=== PATIENT | female | born 1945 | race Caucasian/White ===

== ENCOUNTER 2018-01-24 15:53 | Emergency (ER) | payer OTHER ==
[~2018-01-24] VITALS: Ht 157.5 cm; Wt 67.8 kg
[2018-01-24 16:02] VITALS: TEMP 37; Ht 157.5 cm; Wt 67.8 kg
[2018-01-24] MEDS ORDERED: LIDOCAINE/EPINEPH/TETRACAINE 1 EA SYR ONE (16:28)
--- NOTE | 2018-01-24 17:08 | DIAGNOSTIC IMAGING REPORT ---
CT SCAN OF THE CERVICAL SPINE CLINICAL HISTORY: Fall. COMPARISON STUDY: No priors. TECHNIQUE: CT scan of the cervical spine is performed from the skull base to the upper thoracic spine. Images are reviewed in the axial, sagittal, and coronal planes. IV contrast was not administered for this examination. A dose lowering technique was utilized adhering to the principles of ALARA. FINDINGS: Skeletal structures: The skeletal structures are osteopenic. There is no evidence of fracture or subluxation involving the cervical spine. Vertebral body height and alignment are maintained. Small anterior osteophytes are seen throughout. The odontoid process and lateral masses are intact. The atlantoaxial articulation is preserved noting productive degenerative change. The spinous processes appear intact. There is mild to moderate multilevel cervical spondylosis. Uncovertebral and facet arthropathy contribute to neural foraminal narrowing at several levels. Intervertebral discs: Mild to moderate disc space narrowing is seen at C5-C6. Only minimal disc space narrowing is seen at the remaining cervical levels. Central canal: A posterior disc osteophyte complex at C5-C6 may contribute to mild acquired compromise of the central canal. Soft tissues: The prevertebral and paraspinous soft tissues are within normal limits. A calcified sialolith is noted in the left parotid gland. A 2.2 cm low-attenuation nodule is noted in the right lobe of the thyroid gland. Calvarium: The visualized calvarium at the skull base appears intact. Brain parenchyma: Partially visualized brain parenchyma the skull base is within normal limits. Sinuses and mastoids: The visualized paranasal sinuses are clear. The mastoid air cells are well pneumatized. Lung apices: Emphysematous change is noted at the lung apices. IMPRESSION: 1. There is no evidence of fracture or subluxation involving the cervical spine. 2. Osteopenia and spondylotic change as above. 3. Emphysema. 4. There is a 2.2 cm nodule in the right thyroid lobe. Follow-up with a nonemergent thyroid ultrasound is recommended. Electronically signed by: Joseph Davies M.D. 01/24/2018 5:06 PM Dictated Date/Time: 01/24/2018 5:02 PM
[2018-01-24] MEDS ORDERED: UMEC1INH PO (17:16)
[2018-01-24] MEDS ORDERED: FLUT1INH7 PO (17:16)
--- NOTE | 2018-01-24 17:20 | DIAGNOSTIC IMAGING REPORT ---
CT SCAN OF THE BRAIN WITHOUT IV CONTRAST CLINICAL HISTORY: Fall. COMPARISON STUDY: No priors. TECHNIQUE: Unenhanced axial CT scan of the brain is performed from the vertex to the skull base. A dose lowering technique was utilized adhering to the principles of ALARA. CT DOSE: 830.44 mGy.cm FINDINGS: Brain parenchyma: There is an approximately 3 x 2 x 2 cm calcification containing mass lesion identified in the supraventricular left parietal lobe. There is mild surrounding edema with no significant mass effect. There is a questionable extension towards/involvement of the superior aspect of the left lateral ventricle. There is minimal subcortical and periventricular microangiopathic change. There is no hemorrhage or evidence of acute territorial ischemia by CT criteria. No extra-axial fluid collection is seen. Ventricles, sulci, cisterns: Prominent secondary to involutional change. Intracranial vasculature: There is atherosclerotic calcification of the cavernous carotid and vertebral arteries. Calvarium: The skeletal structures are osteopenic. No depressed calvarial fracture is seen. Soft tissues: There is a left frontal scalp contusion/laceration. Sinuses and mastoids: The visualized paranasal sinuses are clear. The mastoid air cells are well pneumatized. Orbits: The bony orbits are grossly intact. Bilateral ocular lens implants are noted. IMPRESSION: 1. There is no hemorrhage, midline shift, or evidence of acute territorial ischemia by CT criteria. 2. There is a densely calcified 3 cm mass lesion centered in the supraventricular left parietal lobe. There is mild surrounding edema with no significant mass effect. This appears to be intra-axial in location, and top differential considerations include an oligodendroglioma or possibly an ependymal tumor. Vascular malformations can also calcify; however, this is considered less likely. MRI of the brain with contrast is recommended, as is neurosurgical follow-up. Electronically signed by: Joseph Davies M.D. 01/24/2018 5:19 PM Dictated Date/Time: 01/24/2018 5:00 PM
[2018-01-24] MEDS ORDERED: ACETAMINOPHEN 500 MG TAB ONE (17:57)
[2018-01-24 18:45] LABS: CALCIUM 9.5 mg/dl (8.5-10.1); CREATININE 0.8 mg/dl (0.60-1.20); POTASSIUM 3.9 mmol/L (3.5-5.1)
--- NOTE | 2018-01-24 19:44 | EMERGENCY ROOM VISIT NOTE ---
History First contact with patient: 16:16 Chief Complaint: HEAD INJURY (MINOR) Stated Complaint: HEAD INJURY History of Present Illness The patient is a 72 year old female who presents to the Emergency Room with complaints of a head injury. The patient also notes the following associated symptoms, 4/10 headache, left scalp laceration that has some mild bleeding and left neck pain. This started 1.5 hrs ago while trying to unload a boat from its trailer. She was accidently knocked to the ground. The patient has found no relieving factors. No other injury. Pt denies LOC, visual changes, chest pain , breathing difficulties, nausea, vomiting, abdominal pain, back pain, extremity pain, numbness, weakness, or other complaints. Review of Systems See HPI for pertinent positives and negatives. A total of ten systems were reviewed and were otherwise negative. Past Medical/Surgical History Medical Problems: (1) AA (alcohol abuse) (2) COPD (chronic obstructive pulmonary disease) Social History Smoking Status: Former Smoker Current/Historical Medications Scheduled Fluticasone Furoate-Vilanterol (Breo Ellipta 200-25 Mcg/INH), 1 PUFF PO DAILY Umeclidinium [place] (Incruse Ellipta), 1 PUFF PO DAILY Physical Exam Vital Signs Date Time Temp Pulse Resp B/P (MAP) Pulse Ox O2 Delivery O2 Flow Rate FiO2 01/24/18 20:41 79 18 162/77 96 Room Air 01/24/18 19:14 76 18 156/81 95 Room Air 01/24/18 18:11 84 18 178/98 94 01/24/18 17:14 82 20 160/96 96 Room Air 01/24/18 16:02 37.0 88 20 186/79 96 Room Air Physical Exam GENERAL: Awake, alert, well appearing, no distress HEAD: Normocephalic, 2cm left scalp laceration No dejesus sign. No raccoon eyes. EYES: Normal conjunctiva. PERRL. EARS: External ears normal. Right TM normal. Left TM normal. NOSE: Atraumatic OROPHARYNX: Lips, tongue, and mucosa unremarkable. No erythema or exudate. NECK: No tracheal deviation or JVD. No posterior midline tenderness. No step offs noted. RESPIRATORY: CTA bilaterally. Breath sounds equal. No wheezes. No rhonchi. Normal respiratory effort. CARDIAC: regular rate, normal rhythm. No murmurs. No rubs. ABDOMEN: Inspection reveals no abnormalities. Soft, non distended. No tenderness to palpation. No hernias. BACK: No midline step offs or tenderness to palpation. Unremarkable. PELVIS: Stable to rock. SKIN: Normal. LYMPH: No adenopathy. MUSCULOSKELETAL: Upper and lower extremities are atraumatic. NEURO: GCS 15. Normal sensorium. No sensory or motor deficits noted. Medical Decision & Procedures ER Provider Diagnostic Interpretation: CT SCAN OF THE BRAIN WITHOUT IV CONTRAST CLINICAL HISTORY: Fall. COMPARISON STUDY: No priors. TECHNIQUE: Unenhanced axial CT scan of the brain is performed from the vertex to the skull base. A dose lowering technique was utilized adhering to the principles of ALARA. CT DOSE: 830.44 mGy.cm FINDINGS: Brain parenchyma: There is an approximately 3 x 2 x 2 cm calcification containing mass lesion identified in the supraventricular left parietal lobe. There is mild surrounding edema with no significant mass effect. There is a questionable extension towards/involvement of the superior aspect of the left lateral ventricle. There is minimal subcortical and periventricular microangiopathic change. There is no hemorrhage or evidence of acute territorial ischemia by CT criteria. No extra-axial fluid collection is seen. Ventricles, sulci, cisterns: Prominent secondary to involutional change. Intracranial vasculature: There is atherosclerotic calcification of the cavernous carotid and vertebral arteries. Calvarium: The skeletal structures are osteopenic. No depressed calvarial fracture is seen. Soft tissues: There is a left frontal scalp contusion/laceration. Sinuses and mastoids: The visualized paranasal sinuses are clear. The mastoid air cells are well pneumatized. Orbits: The bony orbits are grossly intact. Bilateral ocular lens implants are noted. IMPRESSION: 1. There is no hemorrhage, midline shift, or evidence of acute territorial ischemia by CT criteria. 2. There is a densely calcified 3 cm mass lesion centered in the supraventricular left parietal lobe. There is mild surrounding edema with no significant mass effect. This appears to be intra-axial in location, and top differential considerations include an oligodendroglioma or possibly an ependymal tumor. Vascular malformations can also calcify; however, this is considered less likely. MRI of the brain with contrast is recommended, as is neurosurgical follow-up. Electronically signed by: Joseph Davies M.D. 01/24/2018 5:19 PM Dictated Date/Time: 01/24/2018 5:[address] SCAN OF THE CERVICAL SPINE CLINICAL HISTORY: Fall. COMPARISON STUDY: No priors. TECHNIQUE: CT scan of the cervical spine is performed from the skull base to the upper thoracic spine. Images are reviewed in the axial, sagittal, and coronal planes. IV contrast was not administered for this examination. A dose lowering technique was utilized adhering to the principles of ALARA. FINDINGS: Skeletal structures: The skeletal structures are osteopenic. There is no evidence of fracture or subluxation involving the cervical spine. Vertebral body height and alignment are maintained. Small anterior osteophytes are seen throughout. The odontoid process and lateral masses are intact. The atlantoaxial articulation is preserved noting productive degenerative change. The spinous processes appear intact. There is mild to moderate multilevel cervical spondylosis. Uncovertebral and facet arthropathy contribute to neural foraminal narrowing at several levels. Intervertebral discs: Mild to moderate disc space narrowing is seen at C5-C6. Only minimal disc space narrowing is seen at the remaining cervical levels. Central canal: A posterior disc osteophyte complex at C5-C6 may contribute to mild acquired compromise of the central canal. Soft tissues: The prevertebral and paraspinous soft tissues are within normal limits. A calcified sialolith is noted in the left parotid gland. A 2.2 cm low-attenuation nodule is noted in the right lobe of the thyroid gland. Calvarium: The visualized calvarium at the skull base appears intact. Brain parenchyma: Partially visualized brain parenchyma the skull base is within normal limits. Sinuses and mastoids: The visualized paranasal sinuses are clear. The mastoid air cells are well pneumatized. Lung apices: Emphysematous change is noted at the lung apices. IMPRESSION: 1. There is no evidence of fracture or subluxation involving the cervical spine. 2. Osteopenia and spondylotic change as above. 3. Emphysema. 4. There is a 2.2 cm nodule in the right thyroid lobe. Follow-up with a nonemergent thyroid ultrasound is recommended. Electronically signed by: Joseph Davies M.D. 01/24/2018 5:06 PM Dictated Date/Time: 01/24/2018 5:02 PM Laboratory Results 01/24/18 18:25 Test 01/24/18 18:25 Anion Gap 11.0 mmol/L (3-11) Est Creatinine Clear Calc Drug Dose 58.2 ml/min Estimated GFR () 86.0 Estimated GFR (Non- 74.2 BUN/Creatinine Ratio 28.3 (10-20) Calcium Level 9.5 mg/dl (8.5-10.1) Medications Administered Medications (Trade) Dose Ordered Sig/Shawna Route Start Time Stop Time Status Last Admin Dose Admin Tetracaine/ Epinephrine/ Lidocaine (L.e.t. Gel 4%/ 1:100/0.5%) 1 ea STK-MED ONCE .ROUTE 01/24/18 16:28 01/24/18 16:29 DC 01/24/18 16:35 1 EA Acetaminophen (Tylenol Tab) 1,000 mg STK-MED ONCE .ROUTE 01/24/18 17:57 01/24/18 17:58 DC 01/24/18 18:10 1,000 MG Procedure LACERATION REPAIR: Location: Left scalp Total length: 2 cm Complexity: simple Verbal consent was obtained after the risks and benefits were explained, including but not limited to bleeding, scarring, infection, pain, and bone/joint /nerve damage. At this time, the risks of the procedure are less than the risks of NOT performing the procedure. A time out was taken and the correct patient and site identified. The wound was anesthetized with ml of 1% lidocaine without epinephrine. Copious irrigation was performed using saline. The skin was prepped with betadine and a sterile field set. The wound was explored for foreign bodies and none found. Debridement was not performed. The wound edges were approximated using 3, 5-0 simple interrupted nylon sutures. Hemostasis and excellent approximation was achieved. Antibacterial ointment and a sterile dressing applied. Detailed wound care instructions and signs and symptoms of infection reviewed with the patient/family. No complications and the patient tolerated the procedure well. Medical Decision Triage Nursing notes reviewed. The patient's presentation and history were concerning for CHI Etiologies such as fracture, soft tissue injury, ICH, SAH, as well as others were entertained. The patient had an accidental fall and suffered a left scalp injury. she underwent CT imaging with the findings noted above. She had her laceration repaired. She underwent MR imaging to further evaluate the intracranial mass. 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 A consult was placed with Dr. Thayer of [facility] neurosurgery. He recommended close outpatient follow-up in his clinic. He will contact the patient tomorrow for a follow-up. The patient will follow up with her primary physician next week to further evaluate the thyroid nodule. She was offered to come back here for suture removal but thinks she will follow-up with her primary office for suture removal. She was provided with a copy of her imaging. She was educated. I gave my usual and customary discussion regarding this issue. By the evaluation outlined above other emergent etiologies such as those listed in the differential, as well as others, were deemed relatively unlikely. The patient was educated about the findings as listed above. All questions were answered and the patient was pleased with the treatment. Return instructions were outlined and the patient was discharged in stable condition. The patient was referred to her PCP and neurosurgery for follow-up for a recheck of the current condition. Impression Primary Impression: Closed head injury Additional Impressions: Laceration Thyroid nodule Intracranial AVM Departure Information Dispostion Home / Self-Care Referrals No Doctor, Assigned (PCP) Patient Instructions My [facility] Additional Instructions Bacitracin to wounds once daily. Use a non-stick dressing such as a large band-aid. Change the dressings once a day. Tylenol: Take 1000 mg every 6 hours as needed for pain. Do not take more than 3000 mg in a 24 hour period. Allow your wounds to air dry several hours per day when you are resting, but it is a good idea to keep them covered while sleeping to prevent irritation and the sheets sticking to the wound. Apply direct pressure for any bleeding. Return to the ER immediately for spreading redness, fevers, pus-like drainage, severe pain, or as needed. Return to the ER or follow up with her primary physician in 7 days for suture removal. Follow-up with [facility] neurosurgery. You should be getting a phone call from them tomorrow regarding the arteriovenous malformation found on your brain imaging. Follow-up next week with your primary physician regarding the thyroid nodule and need for additional imaging. Problem Qualifiers
--- NOTE | 2018-01-24 20:49 | DIAGNOSTIC IMAGING REPORT ---
BRAIN COMBO CLINICAL HISTORY: 72 years-old Female presenting with eval brain mass on CT scan from today. TECHNIQUE: Multisequence, multiplanar MR imaging of the brain was performed before and after the administration of intravenous contrast. IV contrast: 6.5 mL of Gadavist. COMPARISON: Noncontrast CT head from earlier today. FINDINGS: Localizer images: Unremarkable. Ventricles and sulci normal in size. In the paramedian left parietal lobe is an arterial venous malformation. Minimal if any interposed normal brain parenchyma. Internal calcification is best appreciated on CT. The arterial supply may be pial in origin. Primary venous drainage appears to be via the left internal cerebral vein consistent with deep venous drainage. The nidus measures approximately 2.2 cm in diameter. Surrounding T2/FLAIR hyperintensity of the brain parenchyma consistent with vasogenic edema. There is no additional lesion. No evidence of hemorrhage. Mild regional mass effect on sulci. No effacement of the adjacent left lateral ventricle. No midline shift. No restricted diffusion to suggest acute ischemia. No extra-axial fluid collection. T2 skull base flow voids preserved. Bone marrow signal intensity within the calvarium within normal limits. Bilateral [place] lenses are absent. IMPRESSION: 1. 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 No additional lesion. Mild surrounding vasogenic edema. Electronically signed by: Moncho Dunbar M.D. 01/24/2018 8:48 PM Dictated Date/Time: 01/24/2018 8:40 PM
[2018-01-24 21:35] VITALS: BP 141/74; PULSE 71; O2SAT 97
== END 2018-01-24 21:37 | disposition home or self-care (01) ==
LOC: C.EDB 15:54 → C.EDC 21:37
DX: S09.90XA Unspecified injury of head, initial encounter (principal); S01.01XA Laceration without foreign body of scalp, initial encounter; W18.30XA Fall on same level, unspecified, initial encounter; E04.1 Nontoxic single thyroid nodule; Q28.2 Arteriovenous malformation of cerebral vessels; J44.9 Chronic obstructive pulmonary disease, unspecified; Z87.891 Personal history of nicotine dependence; Z79.51 Long term (current) use of inhaled steroids

== ENCOUNTER 2018-07-30 16:00 | Inpatient (IN) ==
[2018-07-30 18:15] LABS: Basophils # (auto) 0.02 K/uL (0-0.2); Basophils % (auto) 0.4 %; Eosinophils # (auto) 0.06 K/uL (0-0.5); Eosinophils % (auto) 1.1 %; Hematocrit (blood only) 33.4 % (37-47); Hemoglobin 10.4 g/dL (12.0-16.0); Immature Granulocytes # (auto) 0.26 K/uL (0.00-0.02); Immature Granulocytes % (auto) 4.9 %; Lymphocytes # (auto) 1.59 K/uL (1.2-3.4); Lymphocytes % (auto) 30.2 %; Mean Corpuscular Hgb Conc 31.1 g/dL (32-36); Mean Corpuscular Volume 101.8 fL (80-100); Mean Platelet Volume 7.7 fL (7.4-10.4); Monocytes # (auto) 0.49 K/uL (0.11-0.59); Monocytes % (auto) 9.3 %; Neutrophils # (auto) 2.84 K/uL (1.4-6.5); Neutrophils % (auto) 54.1 %; Nucleated RBC # (auto) 0.15 K/uL (0-0); Nucleated RBC % (auto) 2.9 %; Platelet Count 124 K/uL (130-400); RDW Coefficient of Variation 22.8 % (11.5-14.5); RDW Standard Deviation 82.8 fL (36.4-46.3); Red Blood Count 3.28 M/uL (4.2-5.4); White Blood Count 5.26 K/uL (4.8-10.8)
[2018-07-30] MEDS ORDERED: FUROSEMIDE 40 MG/4 ML VIAL IV STA ×2 (18:29→21:58)
[2018-07-30 18:31] LABS: INR 2.7 (0.9-1.1); Partial Thromboplastin Ratio 1.5; Partial Thromboplastin Time 40.2 Seconds (21.0-31.0); Prothrombin Time 25.5 Seconds (9.0-12.0)
[2018-07-30 18:33] LABS: Alanine Aminotransferase 23 U/L (12-78); Albumin Level 2.1 gm/dl (3.4-5.0); Aspartate Aminotransferase 33 U/L (15-37); Blood Urea Nitrogen 34 mg/dl (7-18); Calcium 8.2 mg/dl (8.5-10.1); Carbon Dioxide 27 mmol/L (21-32); Chloride 109 mmol/L (98-107); Est GFR (African American) 84.1; Est GFR (Non-African American) 72.6; Glucose 108 mg/dl (70-99); Potassium 3.6 mmol/L (3.5-5.1); Sodium 143 mmol/L (136-145)
[2018-07-30 18:35] LABS: Anisocytosis Present; Polychromasia 1+
[2018-07-30 18:38] LABS: Albumin Globulin Ratio 0.6 (0.9-2); Alkaline Phosphatase 62 U/L (45-117); Bilirubin,Total 0.4 mg/dl (0.2-1); Globulin 3.5 gm/dl (2.5-4.0); Total Protein 5.6 gm/dl (6.4-8.2); Troponin I 0.022 ng/ml (0-0.045)
--- NOTE | 2018-07-30 19:28 | XRay Report ---
SINGLE VIEW CHEST CLINICAL HISTORY: Fluid overload. FINDINGS: An AP, portable, upright chest radiograph is compared to study dated 07/08/2018. Correlation is made with chest CT dated 09/01/2015. The examination is degraded by portable technique and patient rotation. The heart is mildly enlarged and there is atherosclerotic calcification of the thoracic ao rta. The pulmonary vasculature is noncongested. Emphysema and chronic interstitial thickening are sim ilar to previous. No airspace consolidation or large pleural effusion is identified. Bibasilar atelec tasis is noted. No pneumothorax is seen. The skeletal structures are osteopenic. The bony thorax is g rossly intact. IMPRESSION: Mild cardiac enlargement and emphysema. No acute cardiopulmonary abnormality is seen. Electronically signed by: Joseph Davies M.D. 07/30/2018 7:26 PM
[2018-07-30] MEDS ORDERED: DIVALPROEX EXTENDED RELEASE 500 MG TAB PO STA (20:42)
[2018-07-30] MEDS ORDERED: IPRATROPIUM BROMIDE NEB SOLN 0.02% 2.5 ML VIAL INH PRN (21:58)
[2018-07-30] MEDS ORDERED: ONDANSETRON INJ 2 MG/ML 2 ML VIAL IV PRN (21:58)
[2018-07-30] MEDS ORDERED: NITROGLYCERIN SL 0.4 MG/TAB TAB SL PRN (21:58)
[2018-07-30] MEDS ORDERED: LEVALBUTEROL 1.25MG/0.5ML NEB INH PRN (21:58)
[2018-07-30] MEDS ORDERED: XOPENEX/ATROVENT 1.25mg/0.5MG NEB COMBO NEB PRN (21:58)
[2018-07-30] MEDS ORDERED: POLYETHYLENE (MIRALAX) 17 GM PACK PO PRN (21:58)
[2018-07-30] MEDS: DIVALPROEX EXTENDED RELEASE 500 MG TAB PO SCH (23:11)
--- NOTE | 2018-07-30 23:16 | History and Physical Report ---
DATE OF ADMISSION: 07/30/2018 CHIEF COMPLAINT: Weight gain and increase in lower extremity swelling. HISTORY OF PRESENT ILLNESS: This is a 73-year-old female with past medical history significant for stress-induced cardiomyopathy,DVT, seizure disorder, COPD, AVM malformations of the brain, hematoma of groin, simple partial seizures, history of status epilepticus, vasogenic brain edema, iron deficiency anemia, acute blood loss anemia secondary to hematoma of the groin presents with lower extremity edema and swelling ,from [facility] transferred here by cardiology. The patient has history of fall in January 2018. At that time, CT of the head demonstrated incidental finding of AV malformation and she was referred to [facility] where she received radiation and developed brain edema and seizure disorder. At that time, she was also found to have severe ventricular ejection fraction of 30% and she had a cardiac catheterization that showed normal coronaries. It was felt to be stress-induced cardiomyopathy and later a repeat echo done in May 2018 demonstrated interval improvement of the LV to function 60%. She was on steroids Decadron for seizures. In the first week of June, she came with seizures. At that time, again received IV Decadron and Depakote dose was increased to 750 mg b.i.d. She did okay and she was discharged home and presented back to the ER on 07/08/2018 with status epilepticus. She was given another dose of IV Decadron and she was intubated and she was having sonorous respirations/somnolonce and also she was placed on femoral line and started on pressors as hse was hypotensive after propofol . Then she was transferred to [facility]. In [facility], Depakote level was subtherapeutic and she was loaded and then continued her maintenance dose . She was in ICU and at that time a repeat echo showed again EF of 25%. Eventually she did fine and she was extubated. She was restarted back on 750 mg of b.i.d. Depakote, but family requested 1 gram b.i.d. and though neurology explained of side effect, they were adamant and it was increased to 1000 mg b.i.d. . Patient also was found to have large thigh hematoma following removal of right femoral line and hemoglobin dropped to 6 points and required 1 unit of PRBCs. Discharge hemoglobin was 9.4. CAT scan showed no AV fistula or pseudoaneurysm and she was discharged to [facility]. She says that during discharge also she was developing lower extremity edema. Seems at [facility] on July 25 she was started on Lasix 20 mg daily, but it was not helping and she developed progressive worsening of lower extremity edema and since May, she gained about 20 pounds. Also has swelling in her hands and abdomen and having shortness of breath on exertion, some intermittent dizziness.Patient states she requires assistance for getting up and she ambulates with a walker currently. Denies any headache, no blurred visions, no earache. No runny nose, no sore throat. ,Patient says diet restrictions were not addressed so far and she is on regular diet.No difficulty swallowing. Sleeping okay. She does not sleep flat. She always sleeps with a raised head because of her COPD. Denies any chest pain, no cough, no fever, no nausea, no abdominal pain. Normal bowel and bladder movements. No burning micturition, no hematuria, no bloody or black stools, no skin rash. She easily bruises because she is on Coumadin. She has history of DVT. ALLERGIES: SULFA ANTIBIOTICS, ALCOHOL, OPIATES. PAST MEDICAL HISTORY: As mentioned above. PAST SURGICAL HISTORY: Lower arm reconstruction in 80s, internal carotid artery cath placement, cataract surgery, , coronary angiogram, ovarian cyst removed in her 20s, appendectomy, vertebral artery catheter placement. MEDICATIONS: The patient currently takes Tylenol 325 mg p.o. q. 6 hours p.r.n., Lasix 20 mg p.o. daily, Toprol-XL 25 mg p.o. daily, valproic acid 1000 mg p.o. b.i.d., Coumadin 5 mg p.o. daily or as directed, Breo Ellipta 200/25 mcg inhalation daily, aspirin enteric coated 81 mg p.o. daily, Incruse Ellipta 1 inhalation daily. FAMILY HISTORY: Significant for sister has lung cancer and depression. Mother has heart disorder, CVA, dementia, depression. SOCIAL HISTORY: , currently at [facility]. Quit smoking in 2010, smoked 1 pack a day for 46 years. The patient has previous history of alcohol abuse. She is not drinking for 22 years. No drug use. REVIEW OF SYMPTOMS: As per HPI. Rest of the review of symptoms negative. PHYSICAL EXAMINATION: GENERAL: The patient is of moderate built, not in acute distress. VITAL SIGNS: Temperature 36.4, pulse 88, respiratory 17, blood pressure 114/69, oxygen 97% on 2 liters. HEENT: No pallor, no icterus. Pupils equal, round, and reactive to light. NECK: No JVD, no neck masses, no carotid bruit. CARDIOVASCULAR: S1, S2 heard, regular rate and rhythm, no murmur, no gallop. RESPIRATORY SYSTEM: Normal AP diameter. No accessory muscle use. No wheezing, no crackles. ABDOMEN: Soft, bowel sounds present. Nontender. No distention. CENTRAL NERVOUS SYSTEM: Cranial nerves II-XII grossly intact. Nonfocal. EXTREMITIES: Gross bilateral lower extremity pedal edema present, no erythema seen. LABORATORY DATA: WBC 5.2, hemoglobin 10.4, hematocrit 33.4, platelets 124. PT 25.5, INR 2.7, APTT 40.2. Sodium 143, potassium 3.6, chloride 109, bicarbonate 27, BUN 34, creatinine 0.8, serum glucose 108, calcium 8.2, total bilirubin 0.4, AST 33, ALT 23, alkaline phosphatase 62. Troponin I 0.022. BNP 1659. IMAGING DATA: Chest x-ray, mild cardiac enlargement and emphysema, no acute cardiopulmonary abnormality is seen. EKG: Normal sinus rhythm with rate of 93, nonspecific ST-T abnormality seen. ASSESSMENT AND PLAN: This is a 73-year-old female who presents with shortness of breath on exertion and worsening lower extremity edema. 1. [id number] systolic congestive heart failure. The patient has history of stress-induced cardiomyopathy first diagnosed in January, then repeat echo in May was EF improved to 60%. Again she was admitted to [facility] with status epilepticus in July 2018 and at that time, echo showed 25% EF. The patient was started on 20 of Lasix, was not helping her. She was getting worsening lower extremity edema and gained 20 pounds since May. Received IV Lasix 40 in ER. We will give 1 more Lasix IV [address] on IV 40 b.i.d. from a.m. Daily weights, I's and O's. The patient refusing Cox. Cardiology consult for further recommendation. Repeat echo as per cardiology. Closely monitor in the tele floor. If the patient's blood pressure drops with the Lasix,dobutamine or milrinone as per cardiology. Closely monitor in the tele floor for now. 2. History of arteriovenous malformation of brain, incidental diagnosis in january 2018, status post radiation treatment at [facility]. Post-radiation treatment, developed seizures mostly from vasogenic edema and treated with steroids. No longer on steroids currently. Follow up with neurosurgery. 3. Seizures developed post radiation for AVM, thought to be from vasogenic edema. Initially treated with Keppra, but later changed to Depakote. Also treated with steroids, currently no longer on steroids. Depakote level was increased to 1000 BID recently when patient was in status epilepticus in July first week and transferred to [facility] and need for intubation at that time. Currently, on Depakote 1000 mg b.i.d. No seizures since discharge from [facility]. Continue the same dose and closely monitor. 4. History of chronic obstructive pulmonary disease, history of tobacco abuse in the past. Continue her home inhalers. Placed her on Xopenex and ipratropium nebs p.r.n. 5. History of hematoma of groin from femoral catheterization. No pseudoaneurysm on the CAT scan done at [facility]. 6. Anemia post hematoma of groin, seems to be stable, we will monitor. 7. Thrombocytopenia, will follow the repeat labs. If persistent, may need followup. 8. History of deep vein thrombosis on Coumadin. INR therapeutic. Follow PT/INR. Code status level 1 full code. 9. DVT px on Coumadin. follow inr. DISPOSITION: Closely monitor in tele floor. PT and OT prior to discharge. Social service to help with discharge planning. The patient is coming from [facility], may need to go back to [facility] at time of discharge. [facility]
[2018-07-30] MEDS: METOPROLOL SUCC 25MG EXT REL TAB PO SCH (23:21)
--- NOTE | 2018-07-31 00:22 | Emergency Department Note ---
Entered by Brad Rivera acting as a scribe for History of Present Illness General Chief complaint: Swelling/Edema to Extremity Stated complaint: EDEMA IN LEGS, ARMS, FLUID IN LUNGS, LOW BP Time Seen by Provider: 07/30/18 18:14 History of Present Illness Provider complaint: swelling/edema to extremities Onset (ago): day(s) (July 08, 2018) Location: upper extremity, lower extremity, left and right Pain Consistency: + other (worsening) Maximum Pain Intensity: 2 Quality: + other (edema) Associated symptoms: + shortness of breath (exertional) and + other (weight gain of about 10-12 pounds); no chest pain, no cough and no fever/chills Treatments prior to arrival: other (Lasix) The patient is a 73 year old white female w/ PMHx of 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 The patient reports that was seen by a LAYNE in Dr. Caceres's, Cardiology, office today who was concerned that the patient was retaining fluids. The patient says since coming to the hospital on July 08, she has gained about 10 to 12 pounds in her extremities. The patient states that since then she has also developed exertional shortness of breath. She reports that laying flat exacerbates her shortness of breath. The patient's says upon arrival to the hospital on July 08, EMS dropped the patient and states that the patient has a significant bruise on her lower right leg. The patient denies any chest pain, cough, fevers, or chills. She admits to recently starting a small dose of Lasix , but is unsure if she took it today as she is a resident of [facility]. Per the patient's notes from her appointment today, the patient is up 20 pounds in three weeks and is up 13 pounds in 5 days. The patient's noted also reveal a negative cardiac catheterization from January 2018. Home Medications Home Medications Medication Instructions Recorded Confirmed Type aspirin [Aspir-81] 81 mg PO DAILY 04/11/18 07/30/18 History fluticasone-vilanterol [Breo 1 inh INHALATION DAILY 04/11/18 07/30/18 History Ellipta] umeclidinium [Incruse Ellipta] 1 inh INHALATION DAILY 04/11/18 07/30/18 History metoprolol succinate 25 mg PO HS 06/09/18 07/30/18 History acetaminophen 325 mg PO Q6H PRN 07/30/18 07/30/18 History divalproex 1,000 mg PO Q12H 07/30/18 07/30/18 History furosemide [Lasix] 20 mg PO DAILY 07/30/18 07/30/18 History warfarin [Coumadin] 5 mg PO DAILY 07/30/18 07/30/18 History Allergies Allergy/AdvReac Type Severity Reaction Status Date / Time Sulfa (Sulfonamide Allergy Mild rash Verified 07/30/18 19:01 Antibiotics) alcohol Allergy Unknown Recovering Verified 07/30/18 19:01 Alcoholic Opioids - Morphine Analogues AdvReac HISTORY OF Verified 07/30/18 19:01 ADDICTION Past Med/Surg History Medical History Vasogenic edema Dehydration Hyponatremia AA (alcohol abuse) (Resolved) COPD (chronic obstructive pulmonary disease) (Chronic) Seizure (Acute) 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 Social History marital status: Current Living Situation: Group Home Current Living Situation Comment: [facility] Feels Safe at Home: Yes Safety Concerns: Feels Safe At This Time Smoking Status: Former smoker Smoking End Date: 2010 Second Hand Exposure: No Tobacco Cessation Education Requested by Patient: No Hx Alcohol Use: No Hx Substance Use: No Beliefs That Will Affect Care: None Preferred Language: Uzbek Communication Ability: Effective Servicer Required: No Review of Systems See HPI for pertinent positives & negatives. and A total of 10 systems reviewed and were otherwise negative Physical Exam Vital Signs Vital Signs - 24 hr 07/30/18 16:22 07/30/18 18:02 07/30/18 18:25 Temperature 36.4 C L Temperature Source Oral Sepsis Recent Fever Within 48 Hours No Sepsis New/Unexplained Change in Mental Status No Sepsis Action Taken by Nursing No Action Required Pulse Rate 81 87 Pulse Rate [Right Brachial] Pulse Rate from SpO2 Sensor Pulse Rhythm Regular Pulse Strength Normal Respiratory Rate 20 21 Respiratory Effort / Characteristics Non-Labored Spontaneous Respiratory Depth Normal Respiratory Pattern Regular Blood Pressure 92/66 L 141/102 H Blood Pressure [Right Arm] Blood Pressure Mean 74 115 Blood Pressure Mean [Right Arm] Blood Pressure Position Sitting Blood Pressure Position [Right Arm] Pulse Oximetry 97 94 Pulse Oximetry [Right Index Finger] Oxygen Delivery Method Room Air Room Air Oxygen Delivery Method [Right Index Finger] Oxygen Flow Rate 07/30/18 18:30 07/30/18 18:40 07/30/18 18:46 Temperature Temperature Source Sepsis Recent Fever Within 48 Hours Sepsis New/Unexplained Change in Mental Status Sepsis Action Taken by Nursing Pulse Rate 85 83 98 H Pulse Rate [Right Brachial] Pulse Rate from SpO2 Sensor 85 Pulse Rhythm Pulse Strength Respiratory Rate 19 21 16 Respiratory Effort / Characteristics Respiratory Depth Respiratory Pattern Blood Pressure 101/65 Blood Pressure [Right Arm] Blood Pressure Mean 77 Blood Pressure Mean [Right Arm] Blood Pressure Position Blood Pressure Position [Right Arm] Pulse Oximetry 90 87 L Pulse Oximetry [Right Index Finger] Oxygen Delivery Method Room Air Oxygen Delivery Method [Right Index Finger] Oxygen Flow Rate 07/30/18 18:50 07/30/18 18:51 07/30/18 19:00 Temperature Temperature Source Sepsis Recent Fever Within 48 Hours Sepsis New/Unexplained Change in Mental Status Sepsis Action Taken by Nursing Pulse Rate 87 82 Pulse Rate [Right Brachial] Pulse Rate from SpO2 Sensor 86 82 Pulse Rhythm Pulse Strength Respiratory Rate 19 17 Respiratory Effort / Characteristics Respiratory Depth Respiratory Pattern Blood Pressure Blood Pressure [Right Arm] Blood Pressure Mean Blood Pressure Mean [Right Arm] Blood Pressure Position Blood Pressure Position [Right Arm] Pulse Oximetry 90 98 100 Pulse Oximetry [Right Index Finger] Oxygen Delivery Method Nasal Cannula Oxygen Delivery Method [Right Index Finger] Oxygen Flow Rate 2 07/30/18 19:10 07/30/18 19:20 07/30/18 19:30 Temperature Temperature Source Sepsis Recent Fever Within 48 Hours Sepsis New/Unexplained Change in Mental Status Sepsis Action Taken by Nursing Pulse Rate 82 82 93 H Pulse Rate [Right Brachial] Pulse Rate from SpO2 Sensor 82 82 Pulse Rhythm Pulse Strength Respiratory Rate 18 16 21 Respiratory Effort / Characteristics Respiratory Depth Respiratory Pattern Blood Pressure Blood Pressure [Right Arm] Blood Pressure Mean Blood Pressure Mean [Right Arm] Blood Pressure Position Blood Pressure Position [Right Arm] Pulse Oximetry 99 99 Pulse Oximetry [Right Index Finger] Oxygen Delivery Method Oxygen Delivery Method [Right Index Finger] Oxygen Flow Rate 07/30/18 19:40 07/30/18 19:41 07/30/18 19:50 Temperature Temperature Source Sepsis Recent Fever Within 48 Hours Sepsis New/Unexplained Change in Mental Status Sepsis Action Taken by Nursing Pulse Rate 99 H 85 81 Pulse Rate [Right Brachial] Pulse Rate from SpO2 Sensor 87 84 Pulse Rhythm Pulse Strength Respiratory Rate 27 H 25 H 24 Respiratory Effort / Characteristics Respiratory Depth Respiratory Pattern Blood Pressure 122/77 Blood Pressure [Right Arm] Blood Pressure Mean 92 Blood Pressure Mean [Right Arm] Blood Pressure Position Blood Pressure Position [Right Arm] Pulse Oximetry 92 97 Pulse Oximetry [Right Index Finger] Oxygen Delivery Method Nasal Cannula Oxygen Delivery Method [Right Index Finger] Oxygen Flow Rate 2 07/30/18 20:00 07/30/18 20:10 07/30/18 20:20 Temperature Temperature Source Sepsis Recent Fever Within 48 Hours Sepsis New/Unexplained Change in Mental Status Sepsis Action Taken by Nursing Pulse Rate 86 88 85 Pulse Rate [Right Brachial] Pulse Rate from SpO2 Sensor 85 Pulse Rhythm Pulse Strength Respiratory Rate 17 17 19 Respiratory Effort / Characteristics Respiratory Depth Respiratory Pattern Blood Pressure 114/69 Blood Pressure [Right Arm] Blood Pressure Mean 84 Blood Pressure Mean [Right Arm] Blood Pressure Position Blood Pressure Position [Right Arm] Pulse Oximetry 99 Pulse Oximetry [Right Index Finger] Oxygen Delivery Method Oxygen Delivery Method [Right Index Finger] Oxygen Flow Rate 07/30/18 20:30 07/30/18 20:43 07/30/18 20:44 Temperature Temperature Source Sepsis Recent Fever Within 48 Hours Sepsis New/Unexplained Change in Mental Status Sepsis Action Taken by Nursing Pulse Rate 95 H 90 89 Pulse Rate [Right Brachial] Pulse Rate from SpO2 Sensor 89 89 Pulse Rhythm Pulse Strength Respiratory Rate 24 21 21 Respiratory Effort / Characteristics Respiratory Depth Respiratory Pattern Blood Pressure Blood Pressure [Right Arm] Blood Pressure Mean 87 Blood Pressure Mean [Right Arm] Blood Pressure Position Blood Pressure Position [Right Arm] Pulse Oximetry 100 100 Pulse Oximetry [Right Index Finger] Oxygen Delivery Method Oxygen Delivery Method [Right Index Finger] Oxygen Flow Rate 07/30/18 20:50 07/30/18 20:57 07/30/18 21:00 Temperature Temperature Source Sepsis Recent Fever Within 48 Hours Sepsis New/Unexplained Change in Mental Status Sepsis Action Taken by Nursing Pulse Rate 91 H 85 Pulse Rate [Right Brachial] Pulse Rate from SpO2 Sensor 87 91 H 86 Pulse Rhythm Pulse Strength Respiratory Rate 19 24 21 Respiratory Effort / Characteristics Respiratory Depth Respiratory Pattern Blood Pressure 135/88 Blood Pressure [Right Arm] Blood Pressure Mean 103 Blood Pressure Mean [Right Arm] Blood Pressure Position Blood Pressure Position [Right Arm] Pulse Oximetry 100 97 100 Pulse Oximetry [Right Index Finger] Oxygen Delivery Method Nasal Cannula Oxygen Delivery Method [Right Index Finger] Oxygen Flow Rate 2 07/30/18 21:01 07/30/18 21:58 07/30/18 22:05 Temperature 36.9 C 36.9 C Temperature Source Oral Oral Sepsis Recent Fever Within 48 Hours Sepsis New/Unexplained Change in Mental Status Sepsis Action Taken by Nursing Pulse Rate 87 Pulse Rate [Right Brachial] 94 H 94 H Pulse Rate from SpO2 Sensor 89 Pulse Rhythm Pulse Strength Respiratory Rate 20 16 16 Respiratory Effort / Characteristics Non-Labored Spontaneous Respiratory Depth Normal Normal Respiratory Pattern Regular Regular Blood Pressure 138/82 Blood Pressure [Right Arm] 123/81 123/81 Blood Pressure Mean 100 Blood Pressure Mean [Right Arm] 95 95 Blood Pressure Position Blood Pressure Position [Right Arm] Sitting Sitting Pulse Oximetry 95 Pulse Oximetry [Right Index Finger] 95 Oxygen Delivery Method Room Air Oxygen Delivery Method [Right Index Finger] Room Air Oxygen Flow Rate 07/31/18 00:06 Temperature 36.5 C Temperature Source Oral Sepsis Recent Fever Within 48 Hours Sepsis New/Unexplained Change in Mental Status Sepsis Action Taken by Nursing Pulse Rate Pulse Rate [Right Brachial] 88 Pulse Rate from SpO2 Sensor Pulse Rhythm Pulse Strength Respiratory Rate 18 Respiratory Effort / Characteristics Respiratory Depth Respiratory Pattern Blood Pressure Blood Pressure [Right Arm] 109/77 Blood Pressure Mean Blood Pressure Mean [Right Arm] 87 Blood Pressure Position Blood Pressure Position [Right Arm] Pulse Oximetry 100 Pulse Oximetry [Right Index Finger] Oxygen Delivery Method Oxygen Delivery Method [Right Index Finger] Oxygen Flow Rate 2 GENERAL: Well appearing, well nourished, NAD, non-toxic. EYE EXAM: Normal conjunctiva. PERRL, no anisocoria and EOM's grossly intact w/o pain. OROPHARYNX: Moist MM. NECK: Supple, no nuchal rigidity, no adenopathy, non-tender. No signs of meningismus. LUNGS: Decreased breath sounds and bibasilar crackles at bilateral bases. Normal chest wall mechanics. HEART: NSR, no MRG. ABDOMEN: Abdomen soft, non-tender, normo-active bowel sounds, no masses, no rebound or guarding. BACK: No CVA TTP. SKIN: No rashes and no bruising. UPPER EXTREMITIES: Upper extremities are grossly normal. LOWER EXTREMITIES: 4+ pitting edema. No calf pain. Aged bruising to right lower extremity distal to the knee. NEURO EXAM: A and O x3. GCS 15. Moves all 4 extremities on command w/o issue. Course 1818: Past medical records reviewed. The patient was evaluated in room A11B, and a complete history and physical examination were performed. 1912: I reviewed the patient's case with Zafar Guo PA-C. She and her attending, Dr. Cantrell, [facility] Hospitalist, will evaluate the patient for further management. 1925: I spoke with the patient about the intended treatment plan and she was agreeable. Consultations Consultation #1: Zafar Guo PA-C Time: 19:13 Administered Medications Divalproex Sodium (Depakote Extended Release) 1,000 mg PO BID MILY Stop: 08/29/18 21:57 Last Admin: 07/30/18 23:11 Dose: Not Given Metoprolol Succinate (Toprol Xl) 25 mg PO HS MILY Stop: 08/29/18 21:57 Last Admin: 07/30/18 23:21 Dose: 25 mg Discontinued Medications Divalproex Sodium (Depakote Extended Release) 1,000 mg PO NOW STA Stop: 07/30/18 20:43 Last Admin: 07/30/18 20:56 Dose: 1,000 mg Furosemide (Lasix) 40 mg IV NOW STA Stop: 07/30/18 18:30 Last Admin: 07/30/18 18:59 Dose: 40 mg Furosemide (Lasix) 20 mg IV NOW STA Stop: 07/30/18 21:59 Last Admin: 07/30/18 23:21 Dose: 20 mg Medical Decision Making Differential Diagnosis Differential diagnosis: Etiologies such as infections, reactive airway disease, pneumonia, pneumothorax , COPD, CHF, cardiac ischemia, pulmonary embolism, musculoskeletal, gastrointestinal, as well as others were entertained. Medical Records Attestation: I reviewed the patient's medical records. Home Medications Current Medication List: was personally reviewed by me Laboratory Data Attestation: I reviewed the patient's lab results. Result diagrams: 07/30/18 18:00 07/30/18 18:00 Lab Results 07/30/18 07/30/18 07/30/18 Range/Units 18:00 18:00 18:00 WBC 5.26 (4.8-10.8) K/uL RBC 3.28 L (4.2-5.4) M/uL Hgb 10.4 L (12.0-16.0) g/dL Hct 33.4 L (37-47) % MCV 101.8 H (80-100) fL MCH 31.7 (25-34) pg MCHC 31.1 L (32-36) g/dL RDW Std Deviation 82.8 H (36.4-46.3) fL RDW Coeff of Delmer 22.8 H (11.5-14.5) % Plt Count 124 L (130-400) K/uL MPV 7.7 (7.4-10.4) fL Immature Gran % (Auto) 4.9 % Neut % (Auto) 54.1 % Lymph % (Auto) 30.2 % [place] % (Auto) 9.3 % Eos % (Auto) 1.1 % Baso % (Auto) 0.4 % Immature Gran # (Auto) 0.26 H (0.00-0.02) K/uL Neut # (Auto) 2.84 (1.4-6.5) K/uL Lymph # (Auto) 1.59 (1.2-3.4) K/uL [place] # (Auto) 0.49 (0.11-0.59) K/uL Eos # (Auto) 0.06 (0-0.5) K/uL Baso # (Auto) 0.02 (0-0.2) K/uL Absolute Nucleated RBC 0.15 H (0-0) K/uL Nucleated RBC % (auto) 2.9 % Polychromasia 1+ Anisocytosis Present PT 25.5 H (9.0-12.0) Seconds INR 2.7 H (0.9-1.1) APTT 40.2 H (21.0-31.0) Seconds PTT Ratio 1.5 Sodium 143 (136-145) mmol/L Potassium 3.6 (3.5-5.1) mmol/L Chloride 109 H (98-107) mmol/L Carbon Dioxide 27 (21-32) mmol/L Anion Gap 7.0 (3-11) BUN 34 H (7-18) mg/dl Creatinine 0.81 (0.6-1.2) mg/dl Est Cr Clr Drug Dosing Not Reportable Est GFR ( Amer) 84.1 Est GFR (Non-Af Amer) 72.6 BUN/Creatinine Ratio 42.0 H (10-20) Glucose 108 H (70-99) mg/dl Calcium 8.2 L (8.5-10.1) mg/dl Total Bilirubin 0.4 (0.2-1) mg/dl AST 33 (15-37) U/L ALT 23 (12-78) U/L Alkaline Phosphatase 62 (45-117) U/L Troponin I 0.022 (0-0.045) ng/ml NT-Pro-B Natriuret Pep (0-900) pg/ml Total Protein 5.6 L (6.4-8.2) gm/dl Albumin 2.1 L (3.4-5.0) gm/dl Globulin 3.5 (2.5-4.0) gm/dl Albumin/Globulin Ratio 0.6 L (0.9-2) 07/30/18 Range/Units 18:00 WBC (4.8-10.8) K/uL RBC (4.2-5.4) M/uL Hgb (12.0-16.0) g/dL Hct (37-47) % MCV (80-100) fL MCH (25-34) pg MCHC (32-36) g/dL RDW Std Deviation (36.4-46.3) fL RDW Coeff of Delmer (11.5-14.5) % Plt Count (130-400) K/uL MPV (7.4-10.4) fL Immature Gran % (Auto) % Neut % (Auto) % Lymph % (Auto) % [place] % (Auto) % Eos % (Auto) % Baso % (Auto) % Immature Gran # (Auto) (0.00-0.02) K/uL Neut # (Auto) (1.4-6.5) K/uL Lymph # (Auto) (1.2-3.4) K/uL [place] # (Auto) (0.11-0.59) K/uL Eos # (Auto) (0-0.5) K/uL Baso # (Auto) (0-0.2) K/uL Absolute Nucleated RBC (0-0) K/uL Nucleated RBC % (auto) % Polychromasia Anisocytosis PT (9.0-12.0) Seconds INR (0.9-1.1) APTT (21.0-31.0) Seconds PTT Ratio Sodium (136-145) mmol/L Potassium (3.5-5.1) mmol/L Chloride (98-107) mmol/L Carbon Dioxide (21-32) mmol/L Anion Gap (3-11) BUN (7-18) mg/dl Creatinine (0.6-1.2) mg/dl Est Cr Clr Drug Dosing Est GFR ( Amer) Est GFR (Non-Af Amer) BUN/Creatinine Ratio (10-20) Glucose (70-99) mg/dl Calcium (8.5-10.1) mg/dl Total Bilirubin (0.2-1) mg/dl AST (15-37) U/L ALT (12-78) U/L Alkaline Phosphatase (45-117) U/L Troponin I (0-0.045) ng/ml NT-Pro-B Natriuret Pep 1659 H (0-900) pg/ml Total Protein (6.4-8.2) gm/dl Albumin (3.4-5.0) gm/dl Globulin (2.5-4.0) gm/dl Albumin/Globulin Ratio (0.9-2) Imaging Data Radiologist's Impression: Radiology results as stated below per my review and the radiologist's interpretation: SINGLE VIEW CHEST CLINICAL HISTORY: Fluid overload. FINDINGS: An AP, portable, upright chest radiograph is compared to study dated . Correlation is made with chest CT dated 09/01/2015. The examination is degraded by portable technique and patient rotation. The heart is mildly enlarged and there is atherosclerotic calcification of the thoracic aorta. The pulmonary vasculature is noncongested. Emphysema and chronic interstitial thickening are similar to previous. No airspace consolidation or large pleural effusion is identified. Bibasilar atelectasis is noted. No pneumothorax is seen. The skeletal structures are osteopenic. The bony thorax is grossly intact. IMPRESSION: Mild cardiac enlargement and emphysema. No acute cardiopulmonary abnormality is seen. Electronically signed by: Joseph Davies M.D. 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 Differential diagnosis: Etiologies such as infections, reactive airway disease, pneumonia, pneumothorax , COPD, CHF, cardiac ischemia, pulmonary embolism, musculoskeletal, gastrointestinal, as well as others were entertained. Patient was seen and evaluated the bedside. The patient was referral from her primary official court reporter office given concerning increasing volume overload exertional shortness of breath and dyspnea. Patient does have orthopnea also. Patient did a blood work completed along with EKG troponin chest x-ray. Patient was given IV Lasix. Given the patient's history and clinical exam did speak with the on-call hospitalist who agreed to further evaluate treat the patient. The patient's primary official court reporter was also aware of the patient being admitted prior to come to the emergency department. She does see Dr. Caceres. Impression & Plan CHF (congestive heart failure), VARGAS (dyspnea on exertion), Orthopnea Discharge Plan Visit Data *Final* Discharge Date/Time: 07/30/18 21:24 Chief Complaint: Swelling/Edema to Extremity Stated Complaint: EDEMA IN LEGS, ARMS, FLUID IN LUNGS, LOW BP ED Provider: Darryl Parham Discharge Problem: CHF (congestive heart failure), VARGAS (dyspnea on exertion), Orthopnea Patient Disposition: Admitted As Inpatient Discharge Instructions Interventions: ED Discharge Assessment Last Done: 07/30/18 21:24 The scribe's documentation has been prepared under my direction and personally reviewed by me in its entirety. I confirm that the note above accurately reflects all work, treatment, procedures, and medical decision making performed by me.
[2018-07-31 05:53] LABS: Hematocrit (blood only) 31.6 % (37-47); Hemoglobin 9.8 g/dL (12.0-16.0); Mean Corpuscular Volume 99.4 fL (80-100); Mean Platelet Volume 7.7 fL (7.4-10.4); Nucleated RBC # (auto) 0.12 K/uL (0-0); Nucleated RBC % (auto) 2.4 %; Platelet Count 126 K/uL (130-400); RDW Coefficient of Variation 22.7 % (11.5-14.5); RDW Standard Deviation 81.9 fL (36.4-46.3); Red Blood Count 3.18 M/uL (4.2-5.4); White Blood Count 5.06 K/uL (4.8-10.8)
[2018-07-31 06:03] LABS: INR 2.7 (0.9-1.1); Prothrombin Time 26.1 Seconds (9.0-12.0)
[2018-07-31 06:22] LABS: BUN Creatinine Ratio 49.1 (10-20); Creatinine Clr Calc Pharmacy 67.5 ml/min; Est GFR (African American) 100.3; Est GFR (Non-African American) 86.6; Magnesium 1.8 mg/dl (1.8-2.4); Potassium 3.5 mmol/L (3.5-5.1)
[2018-07-31 06:33] LABS: ALC (manual) 1.42 K/uL (1.2-3.4); Lymphocytes # (manual) 1.42 K/uL (1.2-3.4); Monocytes # (manual) 0.56 K/uL (0.11-0.59); Promyelocytes # (manual) 0.05 K/uL (0-0)
[2018-07-31 06:36] LABS: Anisocytosis Present; Polychromasia 1+
[2018-07-31] MEDS: ASPIRIN 81 MG ECTAB PO SCH (08:01)
[2018-07-31] MEDS: DIVALPROEX EXTENDED RELEASE 500 MG TAB PO SCH ×2 (08:01→20:10)
[2018-07-31] MEDS ORDERED: FUROSEMIDE 40 MG/4 ML VIAL IV SCH (09:00)
[2018-07-31] MEDS ORDERED: TIOTROPIUM BROMIDE 5 PUFF/90 MCG INH INH SCH (11:00)
--- NOTE | 2018-07-31 11:04 | Hospitalist Progress Note ---
Date of Service July 31, 2018 Assessment & Plan (1) CHF (congestive heart failure): This is a 73-year-old female who presents with shortness of breath on exertion and worsening lower extremity edema [id number] systolic congestive heart failure The patient has history of stress-induced cardiomyopathy first diagnosed in January, then repeat echo in May was EF improved to 60%. Again she was admitted to [facility] with status epilepticus in July 2018 and at that time, echo showed 25% EF. continue IV Lasix 40 mg IV BID start daily magnesium and daily potassium supplements and trend labs to avoid hypokalemia and hypomagnesemia from increased diuretics fluid restriction to 1500 ml, low sodium diet monitor inputs/outputs and daily weights further cardiology recommendations appreciated Hypoalbumineria low serum albumin may contribute to anasarca overhauler helper consult requested will start Boost Nutritional supplements TID with meals will check TSH to rule out hypothyroidism History of deep vein thrombosis on Coumadin. INR is therapeutic will send for lower extremity ultrasound to rule out any acute DVT while on coumadin History of chronic obstructive pulmonary disease, history of tobacco abuse in the past. patient does not have home inhalers of Incruse ellipta and Breo Ellipta; will substitute with Spiriva and Atrovent inhalers unless patient brings in her home meds which are nonformulary nebulizer treatments prn adult school counselor on smoking cessation History of arteriovenous malformation of brain incidental diagnosis in january 2018, status post radiation treatment at [facility]. Post-radiation treatment, developed seizures mostly from vasogenic edema and treated with steroids. No longer on steroids currently. patient Follows up with neurosurgery. Seizures developed post radiation for AVM, thought to be from vasogenic edema, in the past Currently, on Depakote 1000 mg b.i.d; continue History of hematoma of groin from femoral catheterization in the past stable anemia monitor thrombocytopenia DVT px on Coumadin. follow inr. Full Code PT/OT The patient resides at [facility] Subjective Patient seen and examined in the AM. Patient on nasal cannula. Reports at home of shortness of breath on exertion. denies shortness of breath at rest. denies chest pain. denies palpitations, or lightheadedness, or fever. Physical Exam 2 Vital Signs (Past 24 Hours): Last Vital Signs Temp 36.6 C 07/31/18 07:43 Pulse 90 07/31/18 07:43 Resp 18 07/31/18 07:43 BP 113/73 07/31/18 07:43 Pulse Ox 94 07/31/18 07:43 Constitutional: WD/WN, vitals as above Eyes: PERRL, conjunctivae normal, anicteric sclerae EOM intact bilaterally ENMT: external ear and nose normal, oropharynx normal Neck: trachea midline, no thyromegaly Respiratory: normal respiratory effort (generally clear lung sounds, moderate expiratory and inspiratory effort, no wheezing) Cardiovascular: Rate/Rhythm: regular rate and regular rhythm Gastrointestinal (Abdomen): normal bowel sounds, soft, nontender, no hepatosplenomegaly Musculoskeletal: Head/Neck/Chest: normocephalic and head atraumatic bilateral 3 + edema on bilateral lower extremities. patient reports swelling of the upper extremities but this is not grossly apparent Neurologic: PERRL, EOMI, accommodation nl, no face palsy, no dysarthria CN' s II-XI intact bilaterally Psychiatric: A+Ox3, euthymic affect _ (1) CHF (congestive heart failure) Heart failure chronicity: unspecified Heart failure type: unspecified Qualified Code(s): I50.9 - Heart failure, unspecified
[2018-07-31] MEDS ORDERED: IPRATROPIUM BROMIDE HFA INHALER INH SCH (13:00)
[2018-07-31] MEDS: MAGNESIUM OXIDE 400 MG TAB PO SCH (13:18)
[2018-07-31] MEDS: POTASSIUM CHLORIDE 10 MEQ TABCR PO SCH (13:18)
--- NOTE | 2018-07-31 14:19 | Cardiology Consultation ---
Date of Consultation July 31, 2018 Assessment & Plan (1) Volume overload: (2) Hypoalbuminemia: (3) Non-ischemic cardiomyopathy: EKG have been performed 07/30/18 at 1754 revealed normal sinus rhythm at 93 bpm with mild nonspecific ST abnormality in the anterior inferior leads, more prominent compared to 07/08/18. Depakote dose have the known side effect of periperil edema, however, pt has certainly had issues with recurrent life threatening seizures that at present seem to be controlled on her current regimen , making me hesitant to advocate for change in this therapy. She certainly is at risk for multifactorial volume overload with noted low total protein and low albumin, would recommend checking for proteinuria, not present by urinalysis in June 2018 that perhaps something is changed. At this time, will change her furosemide to 20 mg IV 4 times daily, and add IV albumin. Will repeat echocardiogram for reassessment of LVEF given history of what has been felt to have been recurrent stress-induced cardiomyopathy. DVT prophylaxis: Continue Coumadin, INR is currently at goal at 2.7. History of Present Illness Attending Physician: Vaughn Shannon MD History of Present Illness Kathy Godinez is a 73 year old female seen in cardiology consultation per the request of Dr Cantrell for cardiology managment of volume overload ans h/o non ischemic cardiomyopathy. The patient had presented in outpatient cardiology follow-up at [facility] yesterday and seen by Scarlett Ruth PA-C with prior cardiology assessment 2 months ago. The patient was found to have significant change in weight and gross visible swelling of her lower and upper extremities including her hands and abdomen. She described associated worsening shortness of breath. Per records, furosemide 20 mg daily has been initiated on 07/25/18 at [facility] without significant improvement. Her weight on presentation to the office yesterday 07/30/18 was 174 pounds as compared to 154 pounds on 07/03/18. She was referred for inpatient treatment of volume overload with noted relative asymptomatic hypotension, blood pressure of 90/58 yesterday in the office. She received 40 mg of IV furosemide yesterday and another dose of 40 mg this morning without significant diuretic effect thus far. PAST MEDICAL HISTORY: In January 2018 CT of the brain demonstrated AV malformation. She underwent radiation therapy at [facility] and developed brain edema and seizures. April, echocardiogram performed at [facility] revealed a large sized apical, anteroseptal, anterior, and lateral wall motion abnormality with akinesis of the segments. Moderate to severe LV systolic dysfunction was noted with an ejection fraction of 30%. Moderate pulmonary hypertension was also noted with a calculated PA systolic pressure of 52 mmHg, and elevated right atrial pressure of 15 mmHg. 04/11/18, cardiac catheterization performed in follow-up with the above abnormal echocardiogram revealed angiographically normal coronary arteries, patient was therefore diagnosed with a stress-induced cardiomyopathy. 05/31/18: Repeat echocardiogram aimee [facility] revealed interval normalization of the LVEF, which was counted to be 61% at that time. The left atrium was moderately dilated. 07/08/18-07/19/18: Repeat hospital stay [facility], having been admitted for breakthrough seizure activity. Her Depakote level was subtherapeutic and therefore her maintenance dose was increased. She had hypotension during that admission, with recurrent decline in her ejection fraction 07/08/18: Echocardiogram [facility], LVEF severely reduced, ejection fraction 25-29% with a large sized septal, anteroseptal, anterior, inferior, posterior, and lateral wall motion abnormality with hypokinesis to akinesis of the segments. -Patient on Coumadin therapy for history of DVT, and had a large right groin hematoma during her hospital stay [facility] in July 2018 after removal of a femoral arterial line. Coumadin has been continued in the interim. Allergies Allergy/AdvReac Type Severity Reaction Status Date / Time Sulfa (Sulfonamide Allergy Mild rash Verified 07/30/18 19:01 Antibiotics) alcohol Allergy Unknown Recovering Verified 07/30/18 19:01 Alcoholic Opioids - Morphine Analogues AdvReac HISTORY OF Verified 07/30/18 19:01 ADDICTION Home Medications Home Medications Medication Instructions Recorded Confirmed Type aspirin [Aspir-81] 81 mg PO DAILY 04/11/18 07/30/18 History fluticasone-vilanterol [Breo 1 inh INHALATION DAILY 04/11/18 07/30/18 History Ellipta] umeclidinium [Incruse Ellipta] 1 inh INHALATION DAILY 04/11/18 07/30/18 History metoprolol succinate 25 mg PO HS 06/09/18 07/30/18 History acetaminophen 325 mg PO Q6H PRN 07/30/18 07/30/18 History divalproex 1,000 mg PO Q12H 07/30/18 07/30/18 History furosemide [Lasix] 20 mg PO DAILY 07/30/18 07/30/18 History warfarin [Coumadin] 5 mg PO DAILY 07/30/18 07/30/18 History Patient History Medical History Vasogenic edema Dehydration Hyponatremia AA (alcohol abuse) (Resolved) COPD (chronic obstructive pulmonary disease) (Chronic) Seizure (Acute) 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 Social History marital status: Current Living Situation: [facility] Current Living Situation Comment: [facility] Feels Safe at Home: Yes Safety Concerns: Feels Safe At This Time Smoking Status: Former smoker Smoking End Date: 2010 Second Hand Exposure: No Tobacco Cessation Education Requested by Patient: No Hx Alcohol Use: No Hx Substance Use: No Beliefs That Will Affect Care: None Communication Ability: Effective Review of Systems 10 point review systems is reviewed and is negative with the exception of that above Physical Exam 2 Vital Signs (Past 24 Hours): Last Vital Signs Temp 36.7 C 07/31/18 12:00 Pulse 82 07/31/18 12:00 Resp 18 07/31/18 12:00 BP 106/72 07/31/18 12:00 Pulse Ox 96 07/31/18 12:00 Physical Exam: General: no acute distress and stated age Eyes: conjunctiva are pink and non-injected, sclera clear Chest: normal shape and normal respiratory effort Lungs: clear to auscultation and percussion Cardiac Exam: - regular heart sounds, no murmurs, rubs, or gallops, no jugular venous distention Abdomen: abdomen mildly distended, nontender Extremities: 2+ bilateral lower and upper extremity edema Neuro:awake, coversant, follows commands, no focal motor deficits Psych: appropriate affect and insight. Results & Data Laboratory Results Hemoglobin 9.8, compared to 12.3 on 07/08/18, at 9.4 on 07/19/18. Platelet count 126 INR 2.7 Sodium 143 Potassium 3.5 Chloride 108 CO2 29 BUN 34 Creatinine 0.7 Corrected GFR 86.8 mL/min/m ProBNP level 1659 PG per mL Total protein 5.6, albumin 2.1, TSH 2.63 Diagnostic Findings Chest x-ray without infiltrate, pleural effusion, or interstitial edema
--- NOTE | 2018-07-31 14:28 | Ultrasound Report ---
BILATERAL LOWER EXTREMITY VENOUS DOPPLER HISTORY: Acute pain and swelling of the bilateral lower cavities rule out DVT COMPARISON STUDY: None. FINDINGS: There is normal compressibility, flow, and augmentation within the bilateral lower extremit y deep venous systems. There is a mildly complex ovoid circumscribed hypoechoic collection about the proximal aspect of the medial right thigh subcutaneous tissues, 7.8 x 2.0 x 4.1 cm. Mild subcutaneous edema about the lower legs bilaterally. Nonocclusive echogenic peripheral thrombus about the left co mmon femoral vein, greater saphenous junction. IMPRESSION: 1. No sonographic evidence of acute occlusive deep venous thrombosis within the right or left lower e xtremity. 2. Nonocclusive likely chronic thrombus at the left common femoral vein, greater saphenous junction. 3. Nonspecific hypoechoic subcutaneous collection about the proximal aspect of the medial right thigh measures up to 7.8 cm. Seroma versus liquefying hematoma are differential considerations. Correlate clinically. Electronically signed by: Michael Pedro M.D. 07/31/2018 2:26 PM
[2018-07-31] MEDS ORDERED: PERFLUTREN LIPID MICROSPHERE (DEFINITY) IV ONE (15:13)
[2018-07-31] MEDS: WARFARIN SOD 5 MG TAB PO SCH (16:11)
[2018-07-31] MEDS: FUROSEMIDE 20 MG in SYRINGE 0 ML IV SCH ×2 (16:16→22:11)
[2018-07-31] MEDS: ALBUMIN 25% 50 ML IV SCH ×2 (16:16→20:28)
[2018-07-31] MEDS ORDERED: FUROSEMIDE 40 MG in SYRINGE 0 ML IV SCH (17:00)
[2018-07-31] MEDS: EUCERIN CR 120 GM JAR EXT SCH (20:12)
[2018-07-31] MEDS: METOPROLOL SUCC 25MG EXT REL TAB PO SCH (22:11)
[2018-07-31] MEDS: ACETAMINOPHEN 325 MG TAB PO PRN (23:48)
[2018-08-01 07:11] LABS: INR 2.6 (0.9-1.1); Prothrombin Time 25.2 Seconds (9.0-12.0)
[2018-08-01 07:22] LABS: BUN Creatinine Ratio 44.9 (10-20); Creatinine Clr Calc Pharmacy 65.1 ml/min; Est GFR (African American) 92.3; Est GFR (Non-African American) 79.6; Potassium 3.7 mmol/L (3.5-5.1)
[2018-08-01] MEDS: POTASSIUM CHLORIDE 10 MEQ TABCR PO SCH (07:57)
[2018-08-01] MEDS: ASPIRIN 81 MG ECTAB PO SCH (07:57)
[2018-08-01] MEDS: MAGNESIUM OXIDE 400 MG TAB PO SCH (07:57)
[2018-08-01] MEDS: DIVALPROEX EXTENDED RELEASE 500 MG TAB PO SCH ×2 (07:57→19:49)
[2018-08-01] MEDS: EUCERIN CR 120 GM JAR EXT SCH ×2 (07:58→19:50)
[2018-08-01] MEDS: BREO INH SCH (07:58)
[2018-08-01] MEDS: INCRUSE INH SCH (07:59)
[2018-08-01] MEDS: FUROSEMIDE 20 MG in SYRINGE 0 ML IV SCH ×5 (08:01→19:49)
[2018-08-01] MEDS: ALBUMIN 25% 50 ML IV SCH ×2 (08:07→14:40)
--- NOTE | 2018-08-01 12:30 | Hospitalist Progress Note ---
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 On IV albumin Continue Boost Nutritional supplements TID with meals (3) Seizures: Due to post radiation for AVM from vasogenic edema, in the past Continue Depakote 1000 mg b.i.d Continue seizure precaution No seizure activity currently (4) COPD (chronic obstructive pulmonary disease): Continue home inhalers of Incruse ellipta and Breo Ellipta Continue oxygen supplement and nebulizer treatments prn student services counselor on smoking cessation (5) 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 No longer on steroids currently. patient Follows up with neurosurgery Stable (6) DVT (deep venous thrombosis): Hx chronic DVT U/S showed no evidence of acute occlusive deep venous thrombosis within the right or left lower extremity; But Nonocclusive likely chronic thrombus at the left common femoral vein, greater saphenous junction. Continue coumadin INR 2.6 today Monitor PT/INR History of hematoma of groin from femoral catheterization in the past Platelet stable monitor h/h DVT px on Coumadin. INR therapeutic Full Code Disposition Continue PT/OT eval Subjective Pt was seen and examined Lying in bed feeling very emotional Pt said that she feels defeated because she is not getting better complaint of SOB with exertion Denies any chest pain, palpitation and dizziness Physical Exam Vital Signs (Past 24 Hours): Last Vital Signs Temp 36.5 C 08/01/18 11:17 Pulse 90 08/01/18 11:17 Resp 20 08/01/18 11:17 BP 93/64 L 08/01/18 11:17 Pulse Ox 92 08/01/18 11:17 Physical Exam: General- No acute distress Head- atraumatic Eyes- PERRL, EOMI, ENT- oropharynx clear Neck- supple, no JVD Lungs- poor air entry Heart- regular rhythm; no murmur Abdomen- normal bowel sounds, soft, nontender Extremities- 2+ edema Neuro- alert, oriented x 3; PERRL, EOMI; no facial palsy; no dysarthria Skin- warm & dry (1) CHF (congestive heart failure) Heart failure chronicity: unspecified Heart failure type: unspecified Qualified Code(s): I50.9 - Heart failure, unspecified
[2018-08-01] MEDS: ACETAMINOPHEN 325 MG TAB PO PRN (14:40)
--- NOTE | 2018-08-01 16:02 | Cardiology Progress Note ---
Date of Service August 01, 2018 Assessment & Plan (1) Volume overload: (2) Hypoalbuminemia: Echochardiogram reveals LVEF has normalized. I do not believe pt's edema represents CHF given normal lung sounds and normal CXR. Urine output minimal thus far on IV furosemide and 4 doses of IV albumin. Will continue , perhaps urine output will improve. BP relatively low, but pt is asymptomatic and this dose not appear to be different from her baseline. Subjective Chief complaint: Follow-up edema Subjective: Patient without acute complaint. She has ongoing edema for her hands and legs. Denies lightheadedness or dizziness. Telemetry reveals stable sinus rhythm. Physical Exam Vital Signs (Past 24 Hours): Last Vital Signs Temp 36.7 C 08/01/18 15:15 Pulse 89 08/01/18 15:15 Resp 22 08/01/18 15:15 BP 97/66 L 08/01/18 15:15 Pulse Ox 95 08/01/18 15:15 Physical Exam: General: no acute distress and stated age Eyes: conjunctiva are pink and non-injected, sclera clear Chest: normal shape and normal respiratory effort Lungs: clear to auscultation and percussion Cardiac Exam: - regular heart sounds, no murmurs, rubs, or gallops, no jugular venous distention Abdomen: abdomen soft, non-tender, no abnormal masses and no hepatosplenomegaly Extremities: 1-2+ lower extremity, pitting edema Neuro:awake, coversant, follows commands, no focal motor deficits Results & Data Laboratory Results Coagulation INR: 2.6 08/01/18 Range/Units 06:10 PT 25.2 H (9.0-12.0) Seconds Comprehensive Metabolic Panel 08/01/18 Range/Units 06:10 Sodium 142 (136-145) mmol/L Potassium 3.7 (3.5-5.1) mmol/L Chloride 106 (98-107) mmol/L Carbon Dioxide 29 (21-32) mmol/L BUN 34 H (7-18) mg/dl Creatinine 0.75 (0.6-1.2) mg/dl Glucose 73 (70-99) mg/dl Calcium 8.0 L (8.5-10.1) mg/dl Intake and Output 08/01/18 08/01/18 08/01/18 06:59 14:59 22:59 Intake Total 100 / 1225 100 / 150 50 / 150 Output Total 400 / 1750 226 / 226 Balance -300 / -525 -126 / -76 50 / -76 Intake: IV 50 / 100 50 / 100 Albumin 25% 50 ml @ 50 mls/hr 50 / 100 50 / 100 IV QID [facility] Rx#:[id number] Oral 100 / 1125 50 / 50 Output: Urine 400 / 1750 225 / 225 # Bowel Movements Other: Weight 77 kg
[2018-08-01] MEDS: WARFARIN SOD 5 MG TAB PO SCH (17:40)
[2018-08-01 17:53] LABS: Creatinine Urine Random 42.1 mg/dl; Total Protein Urine Random 7.1 mg/dl (0-11.9)
[2018-08-01] MEDS: METOPROLOL SUCC 25MG EXT REL TAB PO SCH (19:50)
[2018-08-02 06:45] LABS: INR 2.2 (0.9-1.1); Prothrombin Time 20.9 Seconds (9.0-12.0)
[2018-08-02 07:13] LABS: BUN Creatinine Ratio 48.1 (10-20); Calcium 8.1 mg/dl (8.5-10.1); Creatinine Clr Calc Pharmacy 68.5 ml/min; Est GFR (African American) 98.6; Est GFR (Non-African American) 85.1; Potassium 3.5 mmol/L (3.5-5.1)
[2018-08-02] MEDS: MAGNESIUM OXIDE 400 MG TAB PO SCH (08:02)
[2018-08-02] MEDS: ASPIRIN 81 MG ECTAB PO SCH (08:02)
[2018-08-02] MEDS: DIVALPROEX EXTENDED RELEASE 500 MG TAB PO SCH ×2 (08:02→19:44)
[2018-08-02] MEDS: POTASSIUM CHLORIDE 10 MEQ TABCR PO SCH (08:02)
[2018-08-02] MEDS: EUCERIN CR 120 GM JAR EXT SCH ×2 (08:02→19:43)
[2018-08-02] MEDS: FUROSEMIDE 20 MG in SYRINGE 0 ML IV SCH ×4 (08:02→19:45)
[2018-08-02] MEDS: BREO INH SCH (08:03)
[2018-08-02] MEDS: INCRUSE INH SCH (08:04)
--- NOTE | 2018-08-02 11:36 | Cardiology Progress Note ---
Date of Service August 02, 2018 Assessment & Plan (1) Volume overload: (2) Hypoalbuminemia: Continue cautious Lasix as tolerated. Resume IV albumin x4 doses. Overall this may be a nutrition issue (3) Seizures: Continue current agents for seizure prophylaxis. Out of courtesy, I will let urology know that she is admitted. Continue Coumadin, given past history of DVT. INR level 2.2 today Subjective Chief complaint: Follow-up edema Subjective: Patient seen and examined. Sinus rhythm remains present on telemetry. Her head edema has improved, still with lower extremity edema. Blood pressure remains marginal with systolic blood pressure of 89 this morning.She had net volume loss of negative 1.6 l yesterday, however I do not thing the intake of 660 ml is correct. Physical Exam Vital Signs (Past 24 Hours): Last Vital Signs Temp 36.7 C 08/02/18 11:10 Pulse 60 08/02/18 11:10 Resp 20 08/02/18 11:10 BP 89/63 L 08/02/18 11:10 Pulse Ox 96 08/02/18 11:10 Constitutional: well developed; no acute distress Respiratory: normal respiratory effort, lungs clear to auscultation Cardiovascular: RRR, no murmur, no edema Extremities: + edema (1-2+ LE edema) Skin: no rashes, warm and dry Neurologic: Follows commands, conversant, no focal deficits
[2018-08-02] MEDS: ALBUMIN 25% 50 ML IV SCH ×3 (13:12→19:58)
[2018-08-02] MEDS: ACETAMINOPHEN 325 MG TAB PO PRN (13:22)
--- NOTE | 2018-08-02 14:13 | Neurology Consultation ---
Date of Consultation August 02, 2018 Assessment & Plan (1) Seizures: 1. currently receiving albumin and gentle lasix for peripheral edema 2. depakote 1000 mg BID is currently controlling seizure activity 3. side effect profile does list depakote as possible edema of extremities 4. options if needed to change would be tegretol, lamictal, vimpat, trilptal, Zonegran. 5. keppra was tried in the past and was not tolerated. 6. at this point not clear evidence the depakote is causing the edema 7. would continue at this time can readdress if needed Supervising Physician Co-Signing Physician Notes I have seen and discussed above patient with Dr Claudio Connell. Agree with Karena Ford PA-C as noted below. Patient was seen and examined at bedside. Reporting upper and low extremity edema is improving. Patient receiving Albumin, fluid restriction, and Lasix. I would recommend to continue current dose of Depakote. I do not believe the edema is secondary to Depakote use. BNP elevated and albumin is low (2.1). Non pitting edema on examine this afternoon (R>L). Recommend to continue Depakote 1000 mg BID. Discussed with patient and she agrees to plan of care. Recommend we check a free Valproic acid level due to her hypoalbuminema. Order placed. History of Present Illness Reason for Consultation: evaluate for depakote side effect Requesting Physician: Jorge Luis Morales MD Attending Physician: Jorge Luis Morales MD History of Present Illness Kathy Godinez is a 73 year old female non ischemic cardiomyopathy, CHF, DVT, AVM xRT, seizure disorder, COPD. She was seen yesterday in cardiology clinic at . She was found to have a significant weight gain and visible edema of her UE/LE ext. She was also having increased SOB. In January of 2018 she had treatment for AVM and had radiation therapy. She developed brain edema and seizures. She was initially started on Keppra for seizure management but could not tolerate it due to mood issues. She was transitioned off the Keppra and onto Depakote very slowly. At last outpatient visit she was taking 500 mg am 750 mg pm. She was hospitalized 07/08/2018-07/19/2018 for breakthrough seizure activity. Her Depakote level was low and her depakote was increased to 1000 mg BID. It was also noted she had EF 25-29 % and a large sided septal anteroseptal, anterior interior posterior and lateral wall abnormalities. A repeat TTE was done during this hospitalization and her EF is now 70. Management of the edema has been complicated because her blood pressure has been so low. She states she doesn't want to have another seizure and is afraid of changing her depakote to another seizure medication. denies CP, SOB, abdominal pain, one sided weakness, numbness tingling, vision changes, N, V. Allergies Allergy/AdvReac Type Severity Reaction Status Date / Time Sulfa (Sulfonamide Allergy Mild rash Verified 07/30/18 19:01 Antibiotics) alcohol Allergy Unknown Recovering Verified 07/30/18 19:01 Alcoholic Opioids - Morphine Analogues AdvReac HISTORY OF Verified 07/30/18 19:01 ADDICTION Home Medications Home Medications Medication Instructions Recorded Confirmed Type aspirin [Aspir-81] 81 mg PO DAILY 04/11/18 07/30/18 History fluticasone-vilanterol [Breo 1 inh INHALATION DAILY 04/11/18 07/30/18 History Ellipta] umeclidinium [Incruse Ellipta] 1 inh INHALATION DAILY 04/11/18 07/30/18 History metoprolol succinate 25 mg PO HS 06/09/18 07/30/18 History acetaminophen 325 mg PO Q6H PRN 07/30/18 07/30/18 History divalproex 1,000 mg PO Q12H 07/30/18 07/30/18 History furosemide [Lasix] 20 mg PO DAILY 07/30/18 07/30/18 History warfarin [Coumadin] 5 mg PO DAILY 07/30/18 07/30/18 History Patient History Medical History Vasogenic edema Dehydration Hyponatremia AA (alcohol abuse) (Resolved) COPD (chronic obstructive pulmonary disease) (Chronic) Seizure (Acute) 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 Social History Communication Ability: Effective Beliefs That Will Affect Care: None marital status: Current Living Situation: Longterm Current Living Situation Comment: [facility] Feels Safe at Home: Yes Safety Concerns: Feels Safe At This Time Smoking Status: Former smoker Hx Alcohol Use: No Hx Substance Use: No Physical Exam Vital Signs (Past 24 Hours): Last Vital Signs Temp 36.7 C 02/28/19 11:10 Pulse 102 H 08/02/18 13:11 Resp 20 08/02/18 11:10 BP 104/70 08/02/18 13:11 Pulse Ox 96 08/02/18 11:10 Physical Exam: Constitutional: appearance nourished Ears, Nose, Mouth and Throat: mucous membranes moist, no injection and skin normal, eyes normal Cardiovascular: normal S-1 and S-2 and regular rate and rhythm Respiratory: course breath sounds Musculoskeletal: 2++ LE edema, large area of hematoma right upper LE, (peripheral access site), UE mild edema some ecchymosis Skin: no stigmata of neurocutaneous disease noted and normal and intact Eyes: extraocular muscles intact (EOMI) and pupils equal, round and reactive to light (PERRL) NEUROLOGIC EXAMINATION: Mental status: Alert and interactive Oriented to full date and location Oriented to person Speech fluent with no evidence of aphasia Cranial Nerves smile eye brow raise symmetric Reflexes: Deep tendon reflexes were symmetrical and graded 2/5. Sensory: no deficit to light and cool touch Coordination: finger to nose no bi pass Gait/Stance: Posture sitting up in bed Motor: Negative for pronator drift of out stretched arms with eyes closed. 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 All remaining intracranial vessels are unremarkable. 07/08/2018 CT head- No acute intracranial abnormality. Unchanged, known, left superior parietal calcified vascular malformation. 06/09/2018
[2018-08-02] MEDS: WARFARIN SOD 5 MG TAB PO SCH (17:09)
--- NOTE | 2018-08-02 18:43 | Hospitalist Progress Note ---
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 On IV albumin Continue Boost Nutritional supplements TID with meals (3) Seizures: Due to post radiation for AVM from vasogenic edema, in the past Continue Depakote 1000 mg b.i.d Neuro consulted to gena about depakote side effect edema Doubt the edema is from depakote Continue seizure precaution No seizure activity currently (4) COPD (chronic obstructive pulmonary disease): Continue home inhalers of Incruse ellipta and Breo Ellipta Continue oxygen supplement and nebulizer treatments prn evp general counsel on smoking cessation (5) 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 No longer on steroids currently. patient Follows up with neurosurgery Stable (6) DVT (deep venous thrombosis): Hx chronic DVT U/S showed no evidence of acute occlusive deep venous thrombosis within the right or left lower extremity; But Nonocclusive likely chronic thrombus at the left common femoral vein, greater saphenous junction. Continue coumadin INR 2.2 today Monitor PT/INR History of hematoma of groin from femoral catheterization in the past Platelet stable monitor h/h DVT px on Coumadin. INR therapeutic Full Code Disposition Continue PT/OT evkeith Subjective Pt was seen and examined Lying in bed with no distress Pt said that swelling in her hand improves She said that she continues to have sob with exertion Denies any chest pain, palpitation, dizziness and SOB Physical Exam Vital Signs (Past 24 Hours): Last Vital Signs Temp 36.7 C 08/02/18 15:15 Pulse 88 08/02/18 15:15 Resp 18 08/02/18 15:15 BP 85/60 L 08/02/18 15:15 Pulse Ox 91 08/02/18 15:15 Physical Exam: General- No acute distress Head- atraumatic Eyes- PERRL, EOMI, ENT- oropharynx clear Neck- supple, no JVD Lungs- poor air entry Heart- regular rhythm; no murmur Abdomen- normal bowel sounds, soft, nontender Extremities- 2+ edema Neuro- alert, oriented x 3; PERRL, EOMI; no facial palsy; no dysarthria Skin- warm & dry (1) CHF (congestive heart failure) Heart failure chronicity: unspecified Heart failure type: unspecified Qualified Code(s): I50.9 - Heart failure, unspecified
[2018-08-02] MEDS: METOPROLOL SUCC 25MG EXT REL TAB PO SCH (19:45)
[2018-08-03 07:14] LABS: INR 2.2 (0.9-1.1); Prothrombin Time 21.3 Seconds (9.0-12.0)
[2018-08-03 07:32] LABS: BUN Creatinine Ratio 47.7 (10-20); Calcium 8.7 mg/dl (8.5-10.1); Creatinine Clr Calc Pharmacy 59.7 ml/min; Est GFR (African American) 84.1; Est GFR (Non-African American) 72.6; Potassium 3.4 mmol/L (3.5-5.1)
[2018-08-03 07:35] LABS: Bilirubin,Total 0.5 mg/dl (0.2-1)
[2018-08-03] MEDS: POTASSIUM CHLORIDE 10 MEQ TABCR PO SCH (08:03)
[2018-08-03] MEDS: DIVALPROEX EXTENDED RELEASE 500 MG TAB PO SCH ×2 (08:03→20:22)
[2018-08-03] MEDS: ASPIRIN 81 MG ECTAB PO SCH (08:04)
[2018-08-03] MEDS: MAGNESIUM OXIDE 400 MG TAB PO SCH (08:04)
[2018-08-03] MEDS: EUCERIN CR 120 GM JAR EXT SCH ×2 (08:04→20:23)
[2018-08-03] MEDS: BREO INH SCH (08:05)
[2018-08-03] MEDS: INCRUSE INH SCH (08:05)
[2018-08-03] MEDS: ALBUMIN 25% 50 ML IV SCH (08:13)
[2018-08-03] MEDS ORDERED: POTASSIUM CHLORIDE 10 MEQ TABCR PO STA (08:43)
[2018-08-03] MEDS: FUROSEMIDE 20 MG in SYRINGE 0 ML IV SCH ×4 (09:17→20:22)
--- NOTE | 2018-08-03 12:18 | Cardiology Progress Note ---
Date of Service August 03, 2018 Assessment & Plan (1) Edema: Noncardiac lower extremity edema. Although BNP level is elevated, patient is a normal LVEF, and I do not think she is volume overloaded due to congestive heart failure. Her albumin levels are low. Prealbumin is just a bit below lower limit of normal. I previously ordered a urine protein creatinine ratio on 08/01/18 which was within normal limits. TSH was normal on 07/31/18. She is not mobilized significant fluid with IV furosemide 20 mg IV every 6 hours along with several doses of IV albumin. We will proceed with a one-time dose of metolazone 2.5 mg today and see if this helps. Patient received 30 mEq of potassium for a potassium level 3.4 today, will order an additional 20 mEq now in anticipation of low potassium from metolazone. Repeat basic metabolic panel tomorrow. Subjective Chief complaint: Follow-up edema Subjective: Patient without subjective complaint with the exception of ongoing lower extremity edema. Her hand edema noted on admission has improved, but consistent below the knee bilateral lower extremity edema despite diuretic therapy. Physical Exam Vital Signs (Past 24 Hours): Last Vital Signs Temp 36.7 C 08/03/18 11:16 Pulse 85 08/03/18 11:16 Resp 16 08/03/18 11:16 BP 109/73 08/03/18 07:23 Pulse Ox 93 08/03/18 11:16 Physical Exam: General: no acute distress and stated age Eyes: conjunctiva are pink and non-injected, sclera clear Chest: normal shape and normal respiratory effort Lungs: clear to auscultation and percussion Cardiac Exam: - regular heart sounds, no murmurs, rubs, or gallops, no jugular venous distention Abdomen: abdomen soft, non-tender Extremities: 1-2+ bilateral lower extremity edema to the knees Neuro:awake, coversant, follows commands, no focal motor deficits Results & Data Laboratory Results Cardiac Enzymes 08/03/18 Range/Units 06:32 AST 30 (15-37) U/L Coagulation 08/03/18 Range/Units 06:32 PT 21.3 H (9.0-12.0) Seconds Comprehensive Metabolic Panel 08/03/18 Range/Units 06:32 Sodium 141 (136-145) mmol/L Potassium 3.4 L (3.5-5.1) mmol/L Chloride 105 (98-107) mmol/L Carbon Dioxide 30 (21-32) mmol/L BUN 39 H (7-18) mg/dl Creatinine 0.81 (0.6-1.2) mg/dl Glucose 76 (70-99) mg/dl Calcium 8.7 (8.5-10.1) mg/dl AST 30 (15-37) U/L ALT 20 (12-78) U/L Alkaline Phosphatase 63 (45-117) U/L Total Protein 6.0 L (6.4-8.2) gm/dl Albumin 3.0 L (3.4-5.0) gm/dl Intake and Output 08/02/18 08/03/18 08/03/18 22:59 06:59 14:59 Intake Total 520 / 1140 50 / 50 Output Total 700 / 1700 750 / 1700 Balance -180 / -560 -750 / -560 50 / 50 Intake: IV 100 / 150 50 / 50 Albumin 25% 50 ml @ 50 mls/hr 100 / 150 50 / 50 IV QID [facility] Rx#:[id number] Oral 420 / 990 Output: Urine 700 / 1700 750 / 1700 Other: # Unmeasured Voids 2 Weight 75.5 kg Diagnostic Findings Pre-albumin mildly low at 19.9, reference range 20-40 mg/dL.
[2018-08-03] MEDS ORDERED: POTASSIUM CHLORIDE 20 MEQ TABCR PO STA (12:28)
[2018-08-03] MEDS ORDERED: metOLazone 2.5 MG TABLET PO ONE (12:30)
[2018-08-03] MEDS: WARFARIN SOD 5 MG TAB PO SCH (16:37)
[2018-08-03] MEDS: ACETAMINOPHEN 325 MG TAB PO PRN ×2 (17:21)
--- NOTE | 2018-08-03 17:50 | Hospitalist Progress Note ---
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, Recent ECHO during this admission showed no wall motion abnormality with EF 70% Cardiology on board on Lasix 20mg IV qid with IV albumin Has not been diuresis much Metolazone x1 dose given today Continue 1.5L fluid restriction Continue monitor I/O Monitor BMP while on diuretic (2) Hypoalbuminemia: Low serum albumin may contribute to anasarca 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 On IV albumin Continue Boost Nutritional supplements TID with meals (3) Seizures: 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 No longer on steroids currently. patient Follows up with neurosurgery Stable (6) DVT (deep venous thrombosis): Hx chronic DVT U/S showed no evidence of acute occlusive deep venous thrombosis within the right or left lower extremity; But Nonocclusive likely chronic thrombus at the left common femoral vein, greater saphenous junction. Continue coumadin INR 2.2 today Monitor PT/INR History of hematoma of groin from femoral catheterization in the past Platelet stable monitor h/h DVT px on Coumadin. INR therapeutic Full Code Disposition Continue PT/OT evkeith Subjective Pt was seen and examined Lying in bed with no distress Pt said that she feels much better She said that she has been urinating more today She said that her swelling a little improves She said that she does have SOB with exertion Denies any chest pain, palpitation, dizziness and fever Physical Exam Vital Signs (Past 24 Hours): Last Vital Signs Temp 36.8 C 08/03/18 15:14 Pulse 87 08/03/18 15:14 Resp 17 08/03/18 15:14 BP 82/58 L 08/03/18 15:14 Pulse Ox 90 08/03/18 15:14 Physical Exam: General- No acute distress Head- atraumatic Eyes- PERRL, EOMI, ENT- oropharynx clear Neck- supple, no JVD Lungs- poor air entry Heart- regular rhythm; no murmur Abdomen- normal bowel sounds, soft, nontender Extremities- 2+ edema Neuro- alert, oriented x 3; PERRL, EOMI; no facial palsy; no dysarthria Skin- warm & dry (1) CHF (congestive heart failure) Heart failure chronicity: unspecified Heart failure type: unspecified Qualified Code(s): I50.9 - Heart failure, unspecified
[2018-08-03] MEDS: METOPROLOL SUCC 25MG EXT REL TAB PO SCH (20:23)
[2018-08-04 06:25] LABS: BUN Creatinine Ratio 55.2 (10-20); Calcium 8.6 mg/dl (8.5-10.1); Creatinine Clr Calc Pharmacy 66.3 ml/min; Est GFR (African American) 95.4; Est GFR (Non-African American) 82.3; Potassium 3.6 mmol/L (3.5-5.1)
[2018-08-04 07:15] LABS: INR 2.5 (0.9-1.1); Prothrombin Time 23.8 Seconds (9.0-12.0)
[2018-08-04] MEDS: MAGNESIUM OXIDE 400 MG TAB PO SCH (08:14)
[2018-08-04] MEDS: FUROSEMIDE 20 MG in SYRINGE 0 ML IV SCH ×4 (08:14→20:25)
[2018-08-04] MEDS: POTASSIUM CHLORIDE 10 MEQ TABCR PO SCH (08:15)
[2018-08-04] MEDS: ASPIRIN 81 MG ECTAB PO SCH (08:15)
[2018-08-04] MEDS: DIVALPROEX EXTENDED RELEASE 500 MG TAB PO SCH ×2 (08:15→20:25)
[2018-08-04] MEDS: EUCERIN CR 120 GM JAR EXT SCH ×2 (08:15→20:26)
[2018-08-04] MEDS: INCRUSE INH SCH (08:42)
[2018-08-04] MEDS: BREO INH SCH (08:42)
--- NOTE | 2018-08-04 12:23 | Cardiology Progress Note ---
Date of Service August 04, 2018 Assessment & Plan (1) Edema: Noncardiac lower extremity edema with normal left ventricular ejection fraction per echocardiogram. Low albumin and prealbumin noted. Continue intravenous Lasix 4 times daily. Repeat BMP in a.m. Replace electrolytes as needed. Subjective Patient seen and examined at the bedside. Peripheral edema improving. Diuresing with intravenous Lasix 4 times daily. Creatinine stable. E chocardiogram demonstrates borderline hyperdynamic LV function. No evidence of tako tsubo cardiomyopathy. Review of Systems All systems reviewed & are unremarkable except as noted in HPI & below Physical Exam Vital Signs (Past 24 Hours): Last Vital Signs Temp 37.1 C 08/04/18 12:11 Pulse 85 08/04/18 12:11 Resp 18 08/04/18 12:11 BP 94/65 L 08/04/18 12:11 Pulse Ox 90 08/04/18 12:11 Physical Exam: General: NAD, AAO x3, well nourished. HEENT: Normocephalic. Atraumatic. Conjunctiva pink, no scleral icterus. Neck: No carotid bruits, the carotid upstrokes are brisk. No JVD. No HJR Heart: Regular normal S-1 and S-2 no S-3 or S-4 gallop. No murmurs or rub appreciated. PMI is not displaced. No RV heave. Lungs: Clear bilateral without rales , rhonchi, or wheeze. Abdomen: Normal bowel sounds. Soft. Nontender. No masses or organomegaly. No abdominal bruits. Extremities: 2+ lower extremity pretibial and bilateral upper extremity pitting edema. No clubbing, or cyanosis. Pulses: radial=2/4, Dorsalis pedis =2/4, posterior tibial=2/4. Neuro: Cranial nerves grossly intact. No focal motor deficit.
--- NOTE | 2018-08-04 17:46 | Hospitalist Progress Note ---
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 On IV albumin Continue Boost Nutritional supplements TID with meals (3) Seizures: Due to post radiation for AVM from vasogenic edema, in the past Continue Depakote 1000 mg b.i.d Neuro consulted to eval about depakote side effect edema Doubt the edema is from depakote Continue seizure precaution No seizure activity currently (4) COPD (chronic obstructive pulmonary disease): Continue home inhalers of Incruse ellipta and Breo Ellipta Continue oxygen supplement and nebulizer treatments prn debt and budget counselor on smoking cessation (5) 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 No longer on steroids currently. patient Follows up with neurosurgery Stable (6) DVT (deep venous thrombosis): Hx chronic DVT U/S showed no evidence of acute occlusive deep venous thrombosis within the right or left lower extremity; But Nonocclusive likely chronic thrombus at the left common femoral vein, greater saphenous junction. Continue coumadin INR 2.5 today Monitor PT/INR History of hematoma of groin from femoral catheterization in the past Platelet stable monitor h/h DVT px on Coumadin. INR therapeutic Full Code Disposition Will discharge once medically stable Subjective Pt was seen and examined Lying in bed with no distress Pt said that she continues to have SOB with exertion She said that she has been urinated more She continue to require oxygen Denies any chest pain, palpitation and fever Physical Exam Vital Signs (Past 24 Hours): Last Vital Signs Temp 37 C 08/04/18 15:59 Pulse 90 08/04/18 15:59 Resp 18 08/04/18 15:59 BP 85/52 L 08/04/18 15:59 Pulse Ox 88 L 08/04/18 15:59 Physical Exam: General- No acute distress Head- atraumatic Eyes- PERRL, EOMI, ENT- oropharynx clear Neck- supple, no JVD Lungs- poor air entry Heart- regular rhythm; no murmur Abdomen- normal bowel sounds, soft, nontender Extremities- 2+ edema Neuro- alert, oriented x 3; PERRL, EOMI; no facial palsy; no dysarthria Skin- warm & dry (1) CHF (congestive heart failure) Heart failure chronicity: unspecified Heart failure type: unspecified Qualified Code(s): I50.9 - Heart failure, unspecified
[2018-08-04] MEDS: WARFARIN SOD 5 MG TAB PO SCH (18:03)
[2018-08-04] MEDS: METOPROLOL SUCC 25MG EXT REL TAB PO SCH (20:25)
[2018-08-05 06:43] LABS: INR 2.1 (0.9-1.1); Prothrombin Time 20.1 Seconds (9.0-12.0)
[2018-08-05 07:28] LABS: BUN Creatinine Ratio 59.4 (10-20); Calcium 8.4 mg/dl (8.5-10.1); Creatinine Clr Calc Pharmacy 57.7 ml/min; Est GFR (African American) 81.7; Est GFR (Non-African American) 70.4; Potassium 3.7 mmol/L (3.5-5.1)
[2018-08-05] MEDS: DIVALPROEX EXTENDED RELEASE 500 MG TAB PO SCH ×2 (08:05→20:28)
[2018-08-05] MEDS: POTASSIUM CHLORIDE 10 MEQ TABCR PO SCH (08:06)
[2018-08-05] MEDS: ASPIRIN 81 MG ECTAB PO SCH (08:06)
[2018-08-05] MEDS: MAGNESIUM OXIDE 400 MG TAB PO SCH (08:06)
[2018-08-05] MEDS: EUCERIN CR 120 GM JAR EXT SCH ×2 (08:07→20:29)
[2018-08-05] MEDS: FUROSEMIDE 20 MG in SYRINGE 0 ML IV SCH ×4 (08:07→20:29)
[2018-08-05] MEDS: BREO INH SCH (08:08)
[2018-08-05] MEDS: INCRUSE INH SCH (08:08)
--- NOTE | 2018-08-05 11:38 | Cardiology Progress Note ---
Date of Service August 05, 2018 Assessment & Plan (1) Edema: Noncardiac lower extremity edema with normal left ventricular ejection fraction per echocardiogram. Low albumin and prealbumin noted. Add metolazone 2.5 mg prior to 12 PM dose of Lasix, otherwise, continue intravenous Lasix 4 times daily. Repeat BMP in a.m. Replace electrolytes as needed. Subjective Patient seen and examined at the bedside. Fluid balance -1.3 L over the past 24 hours. Patient reports urinating frequently with small volume. Denies chest pain or shortness of breath. Upper extremity edema has significantly improved since admission. Lower extremity edema is slowly improving as well. Denies orthopnea or PND. No dysrhythmias on telemetry. Offers no new complaints at this time. Review of Systems All systems reviewed & are unremarkable except as noted in HPI & below Physical Exam Vital Signs (Past 24 Hours): Last Vital Signs Temp 36.6 C 08/05/18 11:28 Pulse 85 08/05/18 11:28 Resp 24 08/05/18 11:28 BP 94/62 L 08/05/18 11:28 Pulse Ox 95 08/05/18 11:28 Physical Exam: General: NAD, AAO x3, well nourished. HEENT: Normocephalic. Atraumatic. Conjunctiva pink, no scleral icterus. Neck: No carotid bruits, the carotid upstrokes are brisk. No JVD. No HJR Heart: Regular normal S-1 and S-2 no S-3 or S-4 gallop. No murmurs or rub appreciated. PMI is not displaced. No RV heave. Lungs: Clear bilateral without rales , rhonchi, or wheeze. Abdomen: Normal bowel sounds. Soft. Nontender. No masses or organomegaly. No abdominal bruits. Extremities: 2+ lower extremity pretibial and bilateral upper extremity pitting edema. No clubbing, or cyanosis. Pulses: radial=2/4, Dorsalis pedis =2/4, posterior tibial=2/4. Neuro: Cranial nerves grossly intact. No focal motor deficit.
[2018-08-05] MEDS ORDERED: metOLazone 2.5 MG TABLET PO ONE (12:15)
[2018-08-05] MEDS: WARFARIN SOD 5 MG TAB PO SCH (16:10)
--- NOTE | 2018-08-05 16:38 | Hospitalist Progress Note ---
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, Recent ECHO during this admission showed no wall motion abnormality with EF 70% Cardiology on board on Lasix 20mg IV qid with IV albumin Continue 1.5L fluid restriction Continue monitor I/O Monitor BMP while on diuretic Extremities edema improves Continue Lasix 20mg IV and Metolazone 2.5 mg x1 given today Clinically improves (2) Hypoalbuminemia: Low serum albumin may contribute to anasarca 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 On IV albumin Continue Boost Nutritional supplements TID with meals (3) Seizures: Due to post radiation for AVM from vasogenic edema, in the past Continue Depakote 1000 mg b.i.d Neuro consulted to gena about depakote side effect edema Doubt the edema is from depakote Continue seizure precaution No seizure activity currently (4) COPD (chronic obstructive pulmonary disease): Continue home inhalers of Incruse ellipta and Breo Ellipta Continue oxygen supplement and nebulizer treatments prn associate professor of counseling on smoking cessation (5) 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 No longer on steroids currently. patient Follows up with neurosurgery Stable (6) DVT (deep venous thrombosis): Hx chronic DVT U/S showed no evidence of acute occlusive deep venous thrombosis within the right or left lower extremity; But Nonocclusive likely chronic thrombus at the left common femoral vein, grea ter saphenous junction. Continue coumadin INR 2.1 today Monitor PT/INR History of hematoma of groin from femoral catheterization in the past Platelet stable monitor h/h DVT px on Coumadin. INR therapeutic Full Code Disposition Will discharge once medically stable Subjective Pt was seen and examined Lying in bed with no distress Pt said that breathing improved She said that her swelling improves significantly Denies any chest pain, palpitation, dizziness Physical Exam Vital Signs (Past 24 Hours): Last Vital Signs Temp 36.6 C 08/05/18 15:46 Pulse 92 H 08/05/18 15:46 Resp 17 08/05/18 15:46 BP 92/60 L 08/05/18 15:46 Pulse Ox 92 08/05/18 15:46 Physical Exam: General- No acute distress Head- atraumatic Eyes- PERRL, EOMI, ENT- oropharynx clear Neck- supple, no JVD Lungs- poor air entry Heart- regular rhythm; no murmur Abdomen- normal bowel sounds, soft, nontender Extremities- +edema Neuro- alert, oriented x 3; PERRL, EOMI; no facial palsy; no dysarthria Skin- warm & dry (1) CHF (congestive heart failure) Heart failure chronicity: unspecified Heart failure type: unspecified Qualified Code(s): I50.9 - Heart failure, unspecified
[2018-08-05] MEDS: ACETAMINOPHEN 325 MG TAB PO PRN (17:04)
[2018-08-05] MEDS: METOPROLOL SUCC 25MG EXT REL TAB PO SCH (20:29)
[2018-08-06 06:52] LABS: BUN Creatinine Ratio 62.4 (10-20); Calcium 8.6 mg/dl (8.5-10.1); Creatinine Clr Calc Pharmacy 59.7 ml/min; Est GFR (African American) 85.4; Est GFR (Non-African American) 73.7; Potassium 3.3 mmol/L (3.5-5.1)
[2018-08-06] MEDS ORDERED: POTASSIUM CHLORIDE 10 MEQ TABCR PO STA (07:54)
[2018-08-06] MEDS: DIVALPROEX EXTENDED RELEASE 500 MG TAB PO SCH ×2 (08:33→20:20)
[2018-08-06] MEDS: MAGNESIUM OXIDE 400 MG TAB PO SCH (08:33)
[2018-08-06] MEDS: ASPIRIN 81 MG ECTAB PO SCH (08:33)
[2018-08-06] MEDS: POTASSIUM CHLORIDE 10 MEQ TABCR PO SCH (08:33)
[2018-08-06] MEDS: ACETAMINOPHEN 325 MG TAB PO PRN ×2 (08:34→13:21)
[2018-08-06] MEDS: EUCERIN CR 120 GM JAR EXT SCH ×2 (08:37→20:21)
[2018-08-06] MEDS: FUROSEMIDE 20 MG in SYRINGE 0 ML IV SCH ×3 (08:38→13:46)
[2018-08-06] MEDS: INCRUSE INH SCH (08:44)
[2018-08-06] MEDS: BREO INH SCH (08:44)
--- NOTE | 2018-08-06 14:38 | Cardiology Progress Note ---
Date of Service August 06, 2018 Assessment & Plan (1) Edema: Noncardiac lower extremity edema with normal left ventricular ejection fraction per echocardiogram. Low albumin and prealbumin noted. Change lasix dosing to 40mg IV BID. Add metolazone 5 mg prior to evening dose of Lasix. Repeat BMP in a.m. Replace electrolytes as needed. Assess 24 hour urine protein. Subjective Patient seen and examined the bedside. Edema unchanged. Fluid balance -1 L over the last 24 hours. Borderline hypotensive with minimal symptoms. Denies chest pain or shortness of breath. No palpitations. Notes mild tenderness of her left lower extremity. Offers no other concerns/complaints at this time Review of Systems All systems reviewed & are unremarkable except as noted in HPI & below Physical Exam Vital Signs (Past 24 Hours): Last Vital Signs Temp 36.5 C 08/06/18 11:41 Pulse 90 08/06/18 13:07 Resp 18 08/06/18 11:41 BP 84/56 L 08/06/18 13:07 Pulse Ox 92 08/06/18 11:41 Physical Exam: General: NAD, AAO x3, well nourished. HEENT: Normocephalic. Atraumatic. Conjunctiva pink, no scleral icterus. Neck: No carotid bruits, the carotid upstrokes are brisk. No JVD. No HJR Heart: Regular normal S-1 and S-2 no S-3 or S-4 gallop. No murmurs or rub appreciated. PMI is not displaced. No RV heave. Lungs: Clear bilateral without rales , rhonchi, or wheeze. Abdomen: Normal bowel sounds. Soft. Nontender. No masses or organomegaly. No abdominal bruits. Extremities: 2+ lower extremity pretibial and bilateral upper extremity pitting edema. No clubbing, or cyanosis. Pulses: radial=2/4, Dorsalis pedis =2/4, posterior tibial=2/4. Neuro: Cranial nerves grossly intact. No focal motor deficit.
[2018-08-06] MEDS ORDERED: metOLazone 5 MG TABLET PO ONE (16:32)
[2018-08-06] MEDS: WARFARIN SOD 5 MG TAB PO SCH (17:31)
--- NOTE | 2018-08-06 19:00 | Hospitalist Progress Note ---
Date of Service August 06, 2018 Assessment & Plan (1) CHF (congestive heart failure): Snbri-[id number] systolic congestive heart failure present on admission with weight gained and worsening SOB History of stress-induced cardiomyopathy first diagnosed in January, Recent ECHO during this admission showed no wall motion abnormality with EF 70% Continue 1.5L fluid restriction Continue monitor I/O Monitor BMP while on diuretic Extremities edema improves Case discussed with Dr. 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 On IV albumin Continue Boost Nutritional supplements TID with meals Consider to get 24hr urine protein (3) Seizures: Due to post radiation for AVM from vasogenic edema, in the past Continue Depakote 1000 mg b.i.d Neuro consulted to eval about depakote side effect edema Doubt the edema is from depakote Continue seizure precaution No seizure activity currently (4) COPD (chronic obstructive pulmonary disease): Continue home inhalers of Incruse ellipta and Breo Ellipta Continue oxygen supplement and nebulizer treatments prn risk reduction counselor on smoking cessation (5) 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 No longer on steroids currently. patient Follows up with neurosurgery Stable (6) DVT (deep venous thrombosis): Hx chronic DVT U/S showed no evidence of acute occlusive deep venous thrombosis within the right or left lower extremity; But Nonocclusive likely chronic thrombus at the left common femoral vein, greater saphenous junction. Continue coumadin INR 2.1 Monitor PT/INR History of hematoma of groin from femoral catheterization in the past Platelet stable monitor h/h DVT px on Coumadin. INR therapeutic Full Code Disposition Will discharge once medically stable (7) Hypokalemia: K 3.3 K replaced Monitor BMP Subjective Pt was seen and examined Lying in bed with no distress Pt said that breathing slightly improved She said that she walked a little bit in her room today She continues requiring oxygen supplement Denies any chest pain, palpitation and fever Physical Exam Vital Signs (Past 24 Hours): Last Vital Signs Temp 36.3 C L 08/06/18 15:13 Pulse 88 08/06/18 16:00 Resp 16 08/06/18 15:13 BP 91/63 L 03/04/19 15:13 Pulse Ox 94 08/06/18 15:13 Physical Exam: General- No acute distress Head- atraumatic Eyes- PERRL, EOMI, ENT- oropharynx clear Neck- supple, no JVD Lungs- poor air entry Heart- regular rhythm; no murmur Abdomen- normal bowel sounds, soft, nontender Extremities- +edema Neuro- alert, oriented x 3; PERRL, EOMI; no facial palsy; no dysarthria Skin- warm & dry (1) CHF (congestive heart failure) Heart failure chronicity: unspecified Heart failure type: unspecified Qualified Code(s): I50.9 - Heart failure, unspecified
[2018-08-06] MEDS: FUROSEMIDE 40 MG in SYRINGE 0 ML IV SCH (20:23)
[2018-08-06] MEDS: METOPROLOL SUCC 25MG EXT REL TAB PO SCH (20:45)
[2018-08-07 06:52] LABS: INR 2.6 (0.9-1.1); Prothrombin Time 24.5 Seconds (9.0-12.0)
[2018-08-07 06:53] LABS: Calcium 8.3 mg/dl (8.5-10.1); Creatinine Clr Calc Pharmacy 46.5 ml/min; Est GFR (African American) 63.6; Est GFR (Non-African American) 54.9; Potassium 3.5 mmol/L (3.5-5.1)
[2018-08-07] MEDS: POTASSIUM CHLORIDE 10 MEQ TABCR PO SCH (08:00)
[2018-08-07] MEDS: ASPIRIN 81 MG ECTAB PO SCH (08:00)
[2018-08-07] MEDS: DIVALPROEX EXTENDED RELEASE 500 MG TAB PO SCH ×2 (08:00→20:21)
[2018-08-07] MEDS: FUROSEMIDE 40 MG in SYRINGE 0 ML IV SCH ×2 (08:00→20:20)
[2018-08-07] MEDS: MAGNESIUM OXIDE 400 MG TAB PO SCH (08:01)
[2018-08-07] MEDS: BREO INH SCH (08:02)
[2018-08-07] MEDS: INCRUSE INH SCH (08:03)
[2018-08-07] MEDS: EUCERIN CR 120 GM JAR EXT SCH ×2 (08:06→20:20)
[2018-08-07] MEDS: ACETAMINOPHEN 325 MG TAB PO PRN (09:58)
--- NOTE | 2018-08-07 10:35 | XRay Report ---
XR chest 1V portable HISTORY: 73 years-old Female compare to 07/30/18 acute atypical chest pain COMPARISON: Chest radiograph 07/30/2018 TECHNIQUE: Portable AP view of the chest FINDINGS: Cardiac mediastinal and hilar silhouettes are unchanged. Calcification the thoracic aortic arch. Medi al lung apices are secured by the patient's chin. Increased lucency of the lungs is suggestive of emp hysema. Linear subsegmental left basilar atelectasis/scarring redemonstrated. There is no pneumothora x, large pleural effusion or overt pulmonary edema. Degenerative changes of the shoulders and spine. IMPRESSION: No acute process. The above report was generated using voice recognition software. It may contain grammatical, syntax o r spelling errors. Electronically signed by: Michael Pedro M.D. 08/07/2018 10:34 AM
--- NOTE | 2018-08-07 12:21 | Hospitalist Progress Note ---
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, Recent ECHO during this admission showed no wall motion abnormality with EF 70% As per Cardiology doubt about CHF Continue 1.5L fluid restriction Continue monitor I/O Monitor BMP while on diuretic Diuresis about 1.5L over 24hr Continue lasix to 40mg BID Will discuss with cardio about to give an addition Metolazone 5 mg x1 today Monitor BMP Clinically improves (3) VARGAS (dyspnea on exertion): Possible cardiac etiology vs pulmonary etiology Has been getting IV lasix with no significant improvement Possible due to PE INR has been therapeutic ECHO did not showed any RV strain CTA chest to r/o PE will not change the management if positive since pt already had DVT and on anticoagulant Continue oxygen supplement Might need oxygen supplement on discharge (4) Hematoma of right thigh: History of hematoma of R groin from femoral catheterization Right thigh area increases Will check CBC Will get an u/s of the right thigh to check for the hematoma size If hematoma size increases, will hold on coumadin and will consult vascular for IVC placement Continue monitor (5) Hypoalbuminemia: Low serum albumin 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 On IV albumin Continue Boost Nutritional supplements TID with meals Will check urine microalbumin (6) Seizures: 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 No longer on steroids currently. patient Follows up with neurosurgery Stable (9) DVT (deep venous thrombosis): Hx chronic DVT U/S showed no evidence of acute occlusive deep venous thrombosis within the right or left lower extremity; But Nonocclusive likely chronic thrombus at the left common femoral vein, greater saphenous junction. Continue coumadin INR 2.6 Monitor PT/INR DVT px on Coumadin. INR therapeutic Full Code Disposition Will discharge once medically stable (10) Hypokalemia: K 3.5 K replaced Monitor BMP Subjective Pt was seen and examined Lying in bed with no distress Pt said that she does have a discomfort in her right thigh area Her right thigh area swelling increases She said that her breathing seems to improves a little Pt said that in the past she had SOB on exertion due to her COPD She said that but she was never required oxygen supplement Denies any chest pain, palpitation, dizziness and fever Physical Exam Vital Signs (Past 24 Hours): Last Vital Signs Temp 36.3 C L 08/07/18 11:11 Pulse 79 08/07/18 11:11 Resp 16 08/07/18 11:11 BP 88/58 L 08/07/18 11:11 Pulse Ox 90 08/07/18 11:11 Physical Exam: General- No acute distress Head- atraumatic Eyes- PERRL, EOMI, ENT- oropharynx clear Neck- supple, no JVD Lungs- poor air entry Heart- regular rhythm; no murmur Abdomen- normal bowel sounds, soft, nontender Extremities- +edema B/L LE R>L, right thigh swelling increased Neuro- alert, oriented x 3; PERRL, EOMI; no facial palsy; no dysarthria Skin- warm & dry
[2018-08-07 12:31] LABS: Hematocrit (blood only) 30.5 % (37-47); Hemoglobin 9.6 g/dL (12.0-16.0); Mean Corpuscular Hgb Conc 31.5 g/dL (32-36); Mean Corpuscular Volume 103.4 fL (80-100); Mean Platelet Volume 8.2 fL (7.4-10.4); Platelet Count 176 K/uL (130-400); RDW Coefficient of Variation 19.9 % (11.5-14.5); Red Blood Count 2.95 M/uL (4.2-5.4); White Blood Count 4.47 K/uL (4.8-10.8)
[2018-08-07] MEDS ORDERED: POTASSIUM CHLORIDE 10 MEQ TABCR PO ONE (12:50)
--- NOTE | 2018-08-07 14:31 | Ultrasound Report ---
US extremity non-vascular ltd CLINICAL HISTORY: follow on right thigh hematoma hematoma COMPARISON STUDY: 07/31/2018 FINDINGS: Complex collection medial aspect right thigh. Maximum dimension currently is 6 x 2 cm. This is mildly diminished from the prior study of 7.8 x 2 cm. This is most consistent with that of a slow ly resolving hematoma. IMPRESSION: Slight decrease in overall volume of a right thigh hematoma. The above report was generated using voice recognition software. It may contain grammatical, syntax or spelling errors. Electronically signed by: Immanuel Fernández M.D. 08/07/2018 2:29 PM
[2018-08-07] MEDS: WARFARIN SOD 5 MG TAB PO SCH (15:41)
--- NOTE | 2018-08-07 17:44 | Cardiology Progress Note ---
Date of Service August 07, 2018 Assessment & Plan (1) Edema: Noncardiac lower extremity edema with normal left ventricular ejection fraction per echocardiogram. Low albumin and prealbumin noted. Change lasix dosing to 40mg IV BID. If renal function remains stable, will dose with 5 mg of metolazone tomorrow. Apply bilateral compression stockings. Encourage patient to ambulate in halls as tolerated. Subjective Patient seen and examined at the bedside. Fluid balance -1.8 L over the last 24 hours. Patient feels no different today. Ambulating in the halls. Offers no new concerns/complaints. Review of Systems All systems reviewed & are unremarkable except as noted in HPI & below Physical Exam Vital Signs (Past 24 Hours): Last Vital Signs Temp 36.5 C 08/07/18 15:21 Pulse 89 08/07/18 15:21 Resp 20 08/07/18 15:21 BP 90/62 L 08/07/18 15:21 Pulse Ox 91 08/07/18 15:21 Physical Exam: General: NAD, AAO x3, well nourished. HEENT: Normocephalic. Atraumatic. Conjunctiva pink, no scleral icterus. Neck: No carotid bruits, the carotid upstrokes are brisk. No JVD. No HJR Heart: Regular normal S-1 and S-2 no S-3 or S-4 gallop. No murmurs or rub appreciated. PMI is not displaced. No RV heave. Lungs: Clear bilateral without rales , rhonchi, or wheeze. Abdomen: Normal bowel sounds. Soft. Nontender. No masses or organomegaly. No abdominal bruits. Extremities: Large, greater than 5 cm, right groin hematoma. 2+ bilateral upper and lower extremity edema. Pulses: radial=2/4, posterior tibial=2/4. Neuro: Cranial nerves grossly intact. No focal motor deficit.
[2018-08-07] MEDS: METOPROLOL SUCC 25MG EXT REL TAB PO SCH ×2 (20:22→20:36)
[2018-08-08 07:09] LABS: Basophils # (auto) 0.02 K/uL (0-0.2); Basophils % (auto) 0.4 %; Eosinophils # (auto) 0.06 K/uL (0-0.5); Eosinophils % (auto) 1.1 %; Hematocrit (blood only) 33.6 % (37-47); Hemoglobin 10.4 g/dL (12.0-16.0); Immature Granulocytes # (auto) 0.15 K/uL (0.00-0.02); Immature Granulocytes % (auto) 2.8 %; Lymphocytes # (auto) 2.03 K/uL (1.2-3.4); Lymphocytes % (auto) 37.7 %; Mean Corpuscular Volume 102.4 fL (80-100); Mean Platelet Volume 8.2 fL (7.4-10.4); Monocytes # (auto) 0.95 K/uL (0.11-0.59); Monocytes % (auto) 17.7 %; Neutrophils # (auto) 2.17 K/uL (1.4-6.5); Neutrophils % (auto) 40.3 %; Platelet Count 155 K/uL (130-400); RDW Coefficient of Variation 19.4 % (11.5-14.5); RDW Standard Deviation 72.7 fL (36.4-46.3); Red Blood Count 3.28 M/uL (4.2-5.4); White Blood Count 5.38 K/uL (4.8-10.8)
[2018-08-08 07:18] LABS: Prothrombin Time 28.5 Seconds (9.0-12.0)
[2018-08-08 07:45] LABS: BUN Creatinine Ratio 60.7 (10-20); Calcium 8.9 mg/dl (8.5-10.1); Creatinine Clr Calc Pharmacy 46.5 ml/min; Est GFR (African American) 63.6; Est GFR (Non-African American) 54.9; Potassium 3.4 mmol/L (3.5-5.1)
[2018-08-08] MEDS: DIVALPROEX EXTENDED RELEASE 500 MG TAB PO SCH ×2 (08:05→20:09)
[2018-08-08] MEDS: ASPIRIN 81 MG ECTAB PO SCH (08:05)
[2018-08-08] MEDS: POTASSIUM CHLORIDE 10 MEQ TABCR PO SCH (08:05)
[2018-08-08] MEDS: MAGNESIUM OXIDE 400 MG TAB PO SCH (08:05)
[2018-08-08] MEDS: BREO INH SCH (08:06)
[2018-08-08] MEDS: EUCERIN CR 120 GM JAR EXT SCH ×2 (08:07→20:13)
[2018-08-08] MEDS: INCRUSE INH SCH (08:07)
[2018-08-08] MEDS: FUROSEMIDE 40 MG in SYRINGE 0 ML IV SCH (08:09)
[2018-08-08] MEDS ORDERED: FUROSEMIDE 40 MG TAB PO ONE (10:45)
[2018-08-08] MEDS: FUROSEMIDE 40 MG TAB PO SCH (16:45)
--- NOTE | 2018-08-08 19:13 | Hospitalist Progress Note ---
Date of Service August 08, 2018 Assessment & Plan (1) Edema: (2) Volume overload: present on admission with weight gained and worsening SOB History of stress-induced cardiomyopathy first diagnosed in January, Recent ECHO during this admission showed no wall motion abnormality with EF 70% Noncardiac lower extremity edema with normal left ventricular ejection fraction per echocardiogram. Echocardiogram did not showed any RV strain Low albumin and prealbumin noted: on BOOST nutrition supplements As per Cardiology doubt about CHF Continue 1.5L fluid restriction will switch from Lasix 40 mg IV BID to oral Lasix and monitor to see if patient can make net negative output on oral diuretics (3) VARGAS (dyspnea on exertion): Chest X rays have not shown acute infiltrative processes Echocardiogram did not showed any RV strain and while pulmonary embolism could be suspected, patient already has known DVT and anticoagulated on coumadin during this hospital stay patient had acute respiratory failure with hypoxia and diuresis has not reduced oxygen requirements will likely need home oxygen therapy when ready to be discharged from hospital (4) Hematoma of right thigh: History of hematoma of R groin from femoral catheterization The ultrasound on 08/07/18: Slight decrease in overall volume of a right thigh hematoma (5) Hypoalbuminemia: 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 serum 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 Continue Boost Nutritional supplements TID with meals Will check urine microalbumin (6) Seizures: Due to post radiation for AVM from vasogenic edema, in the past Continue Depakote 1000 mg b.i.d Neuro consulted to nancyal about depakote side effect edema but foubt the edema is from depakote Continue seizure precaution No seizure activity currently (7) COPD (chronic obstructive pulmonary disease): Continue home inhalers of Incruse ellipta and Breo Ellipta Continue oxygen supplement and nebulizer treatments prn chromosomal disorders counselor on smoking cessation (8) 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 No longer on steroids currently. patient Follows up with neurosurgery (9) DVT (deep venous thrombosis): History of chronic DVT U/S of lower extremities 07/31/18: No sonographic evidence of acute occlusive deep venous thrombosis within the right or left lower extremity. Nonocclusive likely chronic thrombus at the left common femoral vein, greater saphenous junction The ultrasound on 08/07/18: Slight decrease in overall volume of a right thigh hematoma on coumadin INR is 3 and will hold today's dose of coumadin Full Code (10) Hypokalemia: continue daily oral potassium Subjective Patient on nasal cannula at rest. requiring oxygen with ambulation Denies any chest pain, palpitation, dizziness and fever Patient has been diuresing with IV diuretic and to try switching to oral diuretic today Physical Exam Vital Signs (Past 24 Hours): Last Vital Signs Temp 36.7 C 08/08/18 15:35 Pulse 95 H 08/08/18 16:45 Resp 20 08/08/18 16:45 BP 108/71 08/08/18 16:45 Pulse Ox 91 08/08/18 16:45 Constitutional: WD/WN, vitals as above Eyes: PERRL, conjunctivae normal, anicteric sclerae EOM intact bilaterally ENMT: external ear and nose normal, oropharynx normal Neck: trachea midline, no thyromegaly Respiratory: normal respiratory effort, lungs clear to auscultation Cardiovascular: Rate/Rhythm: regular rate and regular rhythm Gastrointestinal (Abdomen): normal bowel sounds, soft, nontender, no hepatosplenomegaly Musculoskeletal: Head/Neck/Chest: normocephalic and head atraumatic Neurologic: PERRL, EOMI, accommodation nl, no face palsy, no dysarthria CN's II-XI intact bilaterally Psychiatric: A+Ox3, euthymic affect
[2018-08-08] MEDS: METOPROLOL SUCC 25MG EXT REL TAB PO SCH (20:09)
[2018-08-09 06:27] LABS: Prothrombin Time 19.5 Seconds (9.0-12.0)
[2018-08-09 06:55] LABS: BUN Creatinine Ratio 62.2 (10-20); Calcium 8.5 mg/dl (8.5-10.1); Creatinine Clr Calc Pharmacy 50.5 ml/min; Est GFR (African American) 70.2; Est GFR (Non-African American) 60.6; Magnesium 2.2 mg/dl (1.8-2.4)
[2018-08-09] MEDS ORDERED: POTASSIUM CHLORIDE 20 MEQ TABCR PO STA (07:15)
[2018-08-09] MEDS: FUROSEMIDE 40 MG TAB PO SCH (08:19)
[2018-08-09] MEDS: POTASSIUM CHLORIDE 10 MEQ TABCR PO SCH (08:19)
[2018-08-09] MEDS: MAGNESIUM OXIDE 400 MG TAB PO SCH (08:19)
[2018-08-09] MEDS: ASPIRIN 81 MG ECTAB PO SCH (08:19)
[2018-08-09] MEDS: POTASSIUM CHLORIDE / WTR 10 MEQ/100 ML PLCT IV SCH ×2 (08:19→09:47)
[2018-08-09] MEDS: BREO INH SCH (08:20)
[2018-08-09] MEDS: DIVALPROEX EXTENDED RELEASE 500 MG TAB PO SCH (08:20)
[2018-08-09] MEDS: EUCERIN CR 120 GM JAR EXT SCH (08:21)
[2018-08-09] MEDS: INCRUSE INH SCH (08:21)
[2018-08-09] MEDS ORDERED: WARFARIN SOD 5 MG TAB PO ONE (11:45)
--- NOTE | 2018-08-09 11:49 | Hospitalist Progress Note ---
Date of Service August 09, 2018 Assessment & Plan (1) Edema: improved (2) Volume overload: Fluid Overload/Volume Overload (Noncardiac lower extremity edema with normal left ventricular ejection fraction per echocardiogram), Hypoalbuminemia, Acute respiratory failure with hypoxia, present on admission with weight gained and worsening SOB History of stress-induced cardiomyopathy first diagnosed in January, Recent ECHO during this admission showed no wall motion abnormality with EF 70% Noncardiac lower extremity edema with normal left ventricular ejection fraction per echocardiogram. Echocardiogram did not showed any RV strain Low albumin and prealbumin noted: on BOOST nutrition supplements Continue 1.5L fluid restriction has been transitioned from Lasix 40 mg IV BID to oral Lasix BID and diuresing with oral Lasix Hypokalemia from diuresis patient has received oral and IV potassium as AM labs on 08/09/18 with serum potassium of 3 Patient with prescription for Furosemide 40 mg BID and be on fluid restriction of 1500 ml, Patient has prescription for potassium and magnesium supplements daily. Patient can take BOOST supplements with meals Patient should have follow up with primary care doctor to recheck renal function labs and electrolytes (3) VARGAS (dyspnea on exertion): Chest X rays have not shown acute infiltrative processes Echocardiogram did not showed any RV strain and while pulmonary embolism could be suspected, patient already has known DVT and anticoagulated on coumadin during this hospital stay patient had acute respiratory failure with hypoxia and diuresis has not reduced oxygen requirements Patient is discharged to [facility] for physical rehabilitation Patient will need oxygen 2 to 3 liters/min at rest or titrate as needed to maintain oxygen saturation between 92% to 94%. 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 Nutritional supplements TID with meals Patient should speak with primary care doctor about colonoscopy as she has never had one before 08/15/2018 11:00 AM Provider Immanuel Nugent MD [facility] (6) Seizures: Due to post radiation for AVM from vasogenic edema, in the past Continue Depakote 1000 mg b.i.d Neuro consulted to eval about depakote side effect edema but foubt the edema is from depakote No seizure activity on this stay (7) COPD (chronic obstructive pulmonary disease): Continue home inhalers of Incruse ellipta and Breo Ellipta Continue oxygen supplement and nebulizer treatments prn (8) 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 No longer on steroids currently. patient Follows up with neurology/neurosurgery (9) DVT (deep venous thrombosis): History of chronic DVT of left lower extremity U/S of lower extremities 07/31/18: No sonographic evidence of acute occlusive deep venous thrombosis within the right or left lower extremity. Nonocclusive likely chronic thrombus at the left common femoral vein, greater saphenous junction The ultrasound on 08/07/18: Slight decrease in overall volume of a right thigh hematoma Anticoagulated on Coumadin on coumadin INR is 2 and patient should continue coumadin Full Code (10) Hypokalemia: continue daily oral potassium Discharge Diagnosis Fluid Overload/Volume Overload (Noncardiac lower extremity edema with normal left ventricular ejection fraction per echocardiogram), Hypoalbuminemia, Acute respiratory failure with hypoxia, History of chronic DVT of lower extremity, Anticoagulated on Coumadin, History of hematoma of Right groin from history of femoral catheterization, History of AVM (arteriovenous malformation) brain and History of Seizures, Hypokalemia Discharge Instructions Patient is discharged to [facility] for physical rehabilitation Patient will need oxygen 2 to 3 liters/min at rest or titrate as needed to maintain oxygen saturation between 92% to 94%. Titrate oxygen as needed for ambulation Patient with prescription for Furosemide 40 mg BID and be on fluid restriction of 1500 ml, Patient has prescription for potassium and magnesium supplements daily. Patient can take BOOST supplements with meals Patient should have follow up with primary care doctor to recheck renal function labs and electrolytes Patient should speak with primary care doctor about colonoscopy as she has never had one before 08/15/2018 11:00 AM Provider Immanuel Nugent MD Department [facility] 08/20/2018 6:20 PM Provider [facility] Department [facility], [place] 09/03/2018 8:40 AM Provider Karena Ford PA-C Department Neurology [facility] 09/12/2018 10:20 AM Provider Tanesha Ponce DO Department [facility] 10/08/2018 3:30 PM Provider Sushil Christie, DO Department Cardiology, [facility] Subjective Patient on nasal cannula at rest. Denies any chest pain, palpitation, dizziness and fever Patient has been diuresing well with oral diuretic today Physical Exam Vital Signs (Past 24 Hours): Last Vital Signs Temp 36.8 C 08/09/18 11:11 Pulse 90 08/09/18 11:11 Resp 18 08/09/18 11:11 BP 113/75 08/09/18 11:11 Pulse Ox 94 08/09/18 11:11 Constitutional: WD/WN, vitals as above Eyes: PERRL, conjunctivae normal, anicteric sclerae EOM intact bilaterally ENMT: external ear and nose normal, oropharynx normal Neck: trachea midline, no thyromegaly Respiratory: normal respiratory effort, lungs clear to auscultation normal respiratory effort (generally clear lung sounds, moderate expiratory and inspiratory effort, no wheezing) Cardiovascular: Rate/Rhythm: regular rate and regular rhythm Gastrointestinal (Abdomen): normal bowel sounds, soft, nontender, no hepatosplenomegaly Musculoskeletal: Head/Neck/Chest: normocephalic and head atraumatic Neurologic: PERRL, EOMI, accommodation nl, no face palsy, no dysarthria CN's II-XI intact bilaterally Psychiatric: A+Ox3, euthymic affect
--- NOTE | 2018-08-09 12:00 | Discharge Summary ---
Date of Service August 09, 2018 Admission HPI Per Admitting Provider CHIEF COMPLAINT: Weight gain and increase in lower extremity swelling. HISTORY OF PRESENT ILLNESS: This is a 73-year-old female with past medical history significant for stress-induced cardiomyopathy,DVT, seizure disorder, COPD, AVM malformations of the brain, hematoma of groin, simple partial seizures, history of status epilepticus, vasogenic brain edema, iron deficiency anemia, acute blood loss anemia secondary to hematoma of the groin presents with lower extremity edema and swelling ,from [facility] transferred here by cardiology. The patient has history of fall in January 2018. At that time, CT of the head demonstrated incidental finding of AV malformation and she was referred to [facility] where she received radiation and developed brain edema and seizure disorder. At that time, she was also found to have severe ventricular ejection fraction of 30% and she had a cardiac catheterization that showed normal coronaries. It was felt to be stress-induced cardiomyopathy and later a repeat echo done in May 2018 demonstrated interval improvement of the LV to function 60%. She was on steroids Decadron for seizures. In the first week of June, she came with seizures. At that time, again received IV Decadron and Depakote dose was increased to 750 mg b.i.d. She did okay and she was discharged home and presented back to the ER on 07/08/2018 with status epilepticus. She was given another dose of IV Decadron and she was intubated and she was having sonorous respirations/somnolonce and also she was placed on femoral line and started on pressors as hse was hypotensive after propofol . Then she was transferred to [place]. In [place], Depakote level was subtherapeutic and she was loaded and then continued her maintenance dose . She was in ICU and at that time a repeat echo showed again EF of 25%. Eventually she did fine and she was extubated. She was restarted back on 750 mg of b.i.d. Depakote, but family requested 1 gram b.i.d. and though neurology explained of side effect, they were adamant and it was increased to 1000 mg b.i.d. . Patient also was found to have large thigh hematoma following removal of right femoral line and hemoglobin dropped to 6 points and required 1 unit of PRBCs. Discharge hemoglobin was 9.4. CAT scan showed no AV fistula or pseudoaneurysm and she was discharged to [facility]. She says that during discharge also she was developing lower extremity edema. Seems at [facility] on July 25 she was started on Lasix 20 mg daily, but it was not helping and she developed progressive worsening of lower extremity edema and since May, she gained about 20 pounds. Also has swelling in her hands and abdomen and having shortness of breath on exertion, some intermittent dizziness.Patient states she requires assistance for getting up and she ambulates with a walker currently. Denies any headache, no blurred visions, no earache. No runny nose, no sore throat. ,Patient says diet restrictions were not addressed so far and she is on regular diet.No difficulty swallowing. Sleeping okay. She does not sleep flat. She always sleeps with a raised head because of her COPD. Denies any chest pain, no cough, no fever, no nausea, no abdominal pain. Normal bowel and bladder movements. No burning micturition, no hematuria, no bloody or black stools, no skin rash. She easily bruises because she is on Coumadin. She has history of DVT. ALLERGIES: SULFA ANTIBIOTICS, ALCOHOL, OPIATES. PAST MEDICAL HISTORY: As mentioned above. PAST SURGICAL HISTORY: Lower arm reconstruction in 80s, internal carotid artery cath placement, cataract surgery, , coronary angiogram, ovarian cyst removed in her 20s, appendectomy, vertebral artery catheter placement. MEDICATIONS: The patient currently takes Tylenol 325 mg p.o. q. 6 hours p.r.n., Lasix 20 mg p.o. daily, Toprol-XL 25 mg p.o. daily, valproic acid 1000 mg p.o. b.i.d., Coumadin 5 mg p.o. daily or as directed, Breo Ellipta 200/25 mcg inhalation daily, aspirin enteric coated 81 mg p.o. daily, Incruse Ellipta 1 inhalation daily. FAMILY HISTORY: Significant for sister has lung cancer and depression. Mother has heart disorder, CVA, dementia, depression. SOCIAL HISTORY: , currently at [facility]. Quit smoking in 2010, smoked 1 pack a day for 46 years. The patient has previous history of alcohol abuse. She is not drinking for 22 years. No drug use. REVIEW OF SYMPTOMS: As per HPI. Rest of the review of symptoms negative. Admission Exam Per Admitting Provider PHYSICAL EXAMINATION: GENERAL: The patient is of moderate built, not in acute distress. VITAL SIGNS: Temperature 36.4, pulse 88, respiratory 17, blood pressure 114/69, oxygen 97% on 2 liters. HEENT: No pallor, no icterus. Pupils equal, round, and reactive to light. NECK: No JVD, no neck masses, no carotid bruit. CARDIOVASCULAR: S1, S2 heard, regular rate and rhythm, no murmur, no gallop. RESPIRATORY SYSTEM: Normal AP diameter. No accessory muscle use. No wheezing, no crackles. ABDOMEN: Soft, bowel sounds present. Nontender. No distention. CENTRAL NERVOUS SYSTEM: Cranial nerves II-XII grossly intact. Nonfocal. EXTREMITIES: Gross bilateral lower extremity pedal edema present, no erythema seen. Principal Diagnosis Fluid Overload/Volume Overload (Noncardiac lower extremity edema with normal left ventricular ejection fraction per echocardiogram), Hypoalbuminemia, Acute respiratory failure with hypoxia, History of chronic DVT of lower extremity, Anticoagulated on Coumadin, History of hematoma of Right groin from history of femoral catheterization, History of AVM (arteriovenous malformation) brain and History of Seizures, Hypokalemia Discharge Exam Constitutional WD/WN, vitals as above Eyes PERRL, conjunctivae normal, anicteric sclerae EOM intact bilaterally ENMT external ear and nose normal, oropharynx normal Neck trachea midline, no thyromegaly Respiratory normal respiratory effort, lungs clear to auscultation normal respiratory effort (generally clear lung sounds, moderate expiratory and inspiratory effort, no wheezing) Cardiovascular Rate/Rhythm: regular rate and regular rhythm Gastrointestinal (Abdomen) normal bowel sounds, soft, nontender, no hepatosplenomegaly Musculoskeletal Head/Neck/Chest: normocephalic and head atraumatic Neurologic PERRL, EOMI, accommodation nl, no face palsy, no dysarthria CN's II-XI intact bilaterally Psychiatric A+Ox3, euthymic affect Discharge Data Allergies Allergy/AdvReac Type Severity Reaction Status Date / Time Sulfa (Sulfonamide Allergy Mild rash Verified 07/30/18 19:01 Antibiotics) alcohol Allergy Unknown Recovering Verified 07/30/18 19:01 Alcoholic Opioids - Morphine Analogues AdvReac HISTORY OF Verified 07/30/18 19:01 ADDICTION Consultations 07/30/18 19:15 ED Decision to Admit Stat 07/30/18 21:58 Consult Case Management - Discharge Planning Routine 07/31/18 08:00 Consult Cardiology Routine 08/02/18 13:48 Consult Neurology Routine Ordered Studies 07/31/18 10:58 US venous doppler LE BI Stat 08/07/18 12:08 US extremity non-vascular ltd Routine Hospital Course (1) Edema: improved (2) Volume overload: Fluid Overload/Volume Overload (Noncardiac lower extremity edema with normal left ventricular ejection fraction per echocardiogram), Hypoalbuminemia, Acute respiratory failure with hypoxia, present on admission with weight gained and worsening SOB History of stress-induced cardiomyopathy first diagnosed in January, Recent ECHO during this admission showed no wall motion abnormality with EF 70% Noncardiac lower extremity edema with normal left ventricular ejection fraction per echocardiogram. Echocardiogram did not showed any RV strain Low albumin and prealbumin noted: on BOOST nutrition supplements Continue 1.5L fluid restriction has been transitioned from Lasix 40 mg IV BID to oral Lasix BID and diuresing with oral Lasix Hypokalemia from diuresis patient has received oral and IV potassium as AM labs on 08/09/18 with serum potassium of 3 Patient with prescription for Furosemide 40 mg BID and be on fluid restriction of 1500 ml, Patient has prescription for potassium and magnesium supplements daily. Patient can take BOOST supplements with meals Patient should have follow up with primary care doctor to recheck renal function labs and electrolytes (3) VARGAS (dyspnea on exertion): Chest X rays have not shown acute infiltrative processes Echocardiogram did not showed any RV strain and while pulmonary embolism could be suspected, patient already has known DVT and anticoagulated on coumadin during this hospital stay patient had acute respiratory failure with hypoxia and diuresis has not reduced oxygen requirements Patient is discharged to [facility] for physical rehabilitation Patient will need oxygen 2 to 3 liters/min at rest or titrate as needed to maintain oxygen saturation between 92% to 94%. 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 Continue Boost Nutritional supplements TID with meals Patient should speak with primary care doctor about colonoscopy as she has never had one before 08/15/2018 11:00 AM Provider Immanuel Nugent MD [facility] (6) Seizures: Due to post radiation for AVM from vasogenic edema, in the past Continue Depakote 1000 mg b.i.d Neuro consulted to eval about depakote side effect edema but foubt the edema is from depakote No seizure activity on this stay (7) COPD (chronic obstructive pulmonary disease): Continue home inhalers of Incruse ellipta and Breo Ellipta Continue oxygen supplement and nebulizer treatments prn (8) 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 No longer on steroids currently. patient Follows up with neurology/neurosurgery (9) DVT (deep venous thrombosis): History of chronic DVT of left lower extremity U/S of lower extremities 07/31/18: No sonographic evidence of acute occlusive deep venous thrombosis within the right or left lower extremity. Nonocclusive likely chronic thrombus at the left common femoral vein, greater saphenous junction The ultrasound on 08/07/18: Slight decrease in overall volume of a right thigh hematoma Anticoagulated on Coumadin on coumadin INR is 2 and patient should continue coumadin Full Code (10) Hypokalemia: continue daily oral potassium Discharge Diagnosis Fluid Overload/Volume Overload (Noncardiac lower extremity edema with normal left ventricular ejection fraction per echocardiogram), Hypoalbuminemia, Acute respiratory failure with hypoxia, History of chronic DVT of lower extremity, Anticoagulated on Coumadin, History of hematoma of Right groin from history of femoral catheterization, History of AVM (arteriovenous malformation) brain and History of Seizures, Hypokalemia Discharge Instructions Patient is discharged to [facility] for physical rehabilitation Patient will need oxygen 2 to 3 liters/min at rest or titrate as needed to maintain oxygen saturation between 92% to 94%. Titrate oxygen as needed for ambulation Patient with prescription for Furosemide 40 mg BID and be on fluid restriction of 1500 ml, Patient has prescription for potassium and magnesium supplements daily. Patient can take BOOST supplements with meals Patient should have follow up with primary care doctor to recheck renal function labs and electrolytes Patient should speak with primary care doctor about colonoscopy as she has never had one before 08/15/2018 11:00 AM Provider Immanuel Nugent MD Department [facility] 08/20/2018 6:20 PM Provider [facility] [place] [facility] [place] 09/03/2018 8:40 AM Provider Karena Ford PA-C Department Neurology [facility] 09/12/2018 10:20 AM Provider Tanesha Ponce DO Department [facility] 10/08/2018 3:30 PM Provider Sushil Christie DO Department Cardiology, [facility] Total Time Total Time Spent Total Time Spent (In Minutes): 40 minutes Total Time Includes: Examination of the Patient, Discharge Planning and Medication Reconciliation Discharge Plan Discharge Items Patient Disposition: Transfer Inpatient Rehab Fac Reason For Visit: SOB,LOWER EXTREMITY SWELLING Discharge Diagnosis: Fluid Overload/Volume Overload (Noncardiac lower extremity edema with normal left ventricular ejection fraction per echocardiogram), Hypoalbuminemia, Acute respiratory failure with hypoxia, History of chronic DVT of lower extremity, Anticoagulated on Coumadin, History of hematoma of Right groin from history of femoral catheterization, History of AVM (arteriovenous malformation) brain and History of Seizures, Hypokalemia Condition: Good Discharge Goals: Improve disease control Activity: Resume your previous activity Non-emergency contact: Primary Care Provider and Neurologist Call non-emergency contact if: you have any medication questions Diet: Low Sodium (2gm) Fluids: 1500ml (6 cups) Addtl Provider Instructions: Discharge Instructions Patient is discharged to [facility] for physical rehabilitation Patient will need oxygen 2 to 3 liters/min at rest or titrate as needed to maintain oxygen saturation between 92% to 94%. Titrate oxygen as needed for ambulation Patient with prescription for Furosemide 40 mg BID and be on fluid restriction of 1500 ml, Patient has prescription for potassium and magnesium supplements daily. Patient can take BOOST supplements with meals Patient should have follow up with primary care doctor to recheck renal function labs and electrolytes Patient should speak with primary care doctor about colonoscopy as she has never had one before 08/15/2018 11:00 AM Provider Immanuel Nugent MD Department [facility] 08/20/2018 6:20 PM Provider [facility]acy, [facility] 09/03/2018 8:40 AM Provider Karena Ford PA-C Department Neurology [facility] 09/12/2018 10:20 AM Provider Tanesha Ponce DO Department [facility] 10/08/2018 3:30 PM Provider Sushil Salvatore Pratik, DO Department Cardiology, [facility] Prescriptions: New furosemide 40 mg Tablet 40 mg PO BID17 30 Days Qty: 60 RF: 0 magnesium oxide 400 mg (241.3 mg magnesium) Tablet 400 mg PO QAM 30 Days Qty: 30 RF: 0 potassium chloride [Klor-Con M10] 10 mEq Tablet,Er Particles/Crystals 10 meq PO DAILY 30 Days Qty: 30 RF: 0 Continued aspirin [Aspir-81] 81 mg Tablet,Delayed Release (Dr/Ec) 81 mg PO DAILY RF: 0 umeclidinium [Incruse Ellipta] 62.5 mcg/actuation Blister With Device 1 inh INHALATION DAILY RF: 0 fluticasone-vilanterol [Breo Ellipta] 200-25 mcg/dose Blister With Device 1 inh INHALATION DAILY RF: 0 metoprolol succinate 25 mg tablet extended release 24 hr 25 mg PO HS RF: 0 divalproex 500 mg tablet extended release 24 hr 1,000 mg PO Q12H RF: 0 warfarin [Coumadin] 5 mg Tablet 5 mg PO DAILY RF: 0 acetaminophen 325 mg Tablet 325 mg PO Q6H PRN (Reason: Pain) RF: 0 Discontinued furosemide [Lasix] 20 mg Tablet 20 mg PO DAILY RF: 0 Stand-Alone Forms: [facility] Discharge Orders: Discharge Order (Routine); Ordered 08/09/18 Ordered By: Vaughn Shannon Skilled Items Patient informed of condition?: Yes DNR: No Discharge Level of Care: Acute rehab Communicable Disease: No Discharge Prognosis: Stable Admission Data Admit Date/Time: 07/30/18 20:18 Attending Provider: Vaughn Shannon Admit Provider: Pritesh Cantrell Primary Care Provider: Tanesha Ponce Other Providers: Pritesh Cantrell ; Ray Abarca ; Sherif Caceres ; Charanjit Jacobo ; Ravi Branham ; Sushil Christie ; Immanuel Hendrickson ; Alyce Ruth ; Karena Ash ; Claudio Connell Service: Medical Other Interventions: Discharge Summary Assessment (RN) Last Done: 08/09/18 11:11
[2018-08-09 12:06] LABS: BUN Creatinine Ratio 60.7 (10-20); Calcium 8.4 mg/dl (8.5-10.1); Creatinine Clr Calc Pharmacy 52.7 ml/min; Est GFR (Non-African American) 63.9
== END 2018-08-09 13:15 | DRG 640 ==
LOC: ED 16:00 → SUATTDRO 20:18 → 2S 20:18 → 4W 08-07 19:35

== ENCOUNTER 2018-08-25 16:05 | Inpatient (IN) ==
[2018-08-25] MEDS ORDERED: ALBUT/IPRATROP 3MG/0.5MG NEB 3 ML VIAL INH STA (16:25)
[2018-08-25] MEDS ORDERED: methylPREDNISolone 125 MG/2 ML VIAL IV STA (16:25)
[2018-08-25] MEDS ORDERED: SODIUM CHLORIDE 0.9% 500 ML IV SCH (16:30)
--- NOTE | 2018-08-25 16:49 | XRay Report ---
XR chest 1V portable CLINICAL HISTORY: Dyspnea COMPARISON STUDY: Chest radiograph August 07, 2018. FINDINGS: Lung volumes are mildly diminished. There is no pneumothorax. There may be trace bilateral pleural effusions. Mild bibasilar opacities are present. There is possible mild right midlung opacity . Pulmonary vascular congestion is noted. IMPRESSION: 1. Suspected developing mild right midlung opacity which may reflect pneumonia. 2. Pulmonary vascular congestion. 2. Trace bilateral pleural effusions with bibasilar opacities favor atelectasis although consolidatio n could appear similar. Electronically signed by: Shin Larose M.D. 08/25/2018 4:48 PM
[2018-08-25] MEDS ORDERED: LEVOFLOXACIN/D5W 750 MG/150 ML BAG IV STA (17:06)
[2018-08-25] MEDS ORDERED: VANCOMYCIN HCL 1,500 MG in SODIUM CHLORIDE 0.9% 500 ML IV ONE (17:06)
[2018-08-25] MEDS ORDERED: VANCOMYCIN CONSULT ACTIVE PRN (17:06)
[2018-08-25 17:20] LABS: Basophils # (auto) 0.02 K/uL (0-0.2); Basophils % (auto) 0.2 %; Eosinophils # (auto) 0.02 K/uL (0-0.5); Eosinophils % (auto) 0.2 %; Hematocrit (blood only) 37.7 % (37-47); Hemoglobin 12.1 g/dL (12.0-16.0); Immature Granulocytes # (auto) 0.09 K/uL (0.00-0.02); Immature Granulocytes % (auto) 0.8 %; Lymphocytes # (auto) 0.62 K/uL (1.2-3.4); Lymphocytes % (auto) 5.3 %; Mean Corpuscular Hgb Conc 32.1 g/dL (32-36); Mean Corpuscular Volume 103.3 fL (80-100); Mean Platelet Volume 8.5 fL (7.4-10.4); Monocytes # (auto) 1.37 K/uL (0.11-0.59); Monocytes % (auto) 11.6 %; Neutrophils # (auto) 9.68 K/uL (1.4-6.5); Neutrophils % (auto) 81.9 %; Platelet Count 114 K/uL (130-400); RDW Coefficient of Variation 15.9 % (11.5-14.5); RDW Standard Deviation 60.4 fL (36.4-46.3); Red Blood Count 3.65 M/uL (4.2-5.4)
[2018-08-25 17:24] LABS: Base Excess VBG 3.4 mEq/L; Oxygen Saturation VBG 64.1 %; pH VBG 7.51 (7.36-7.41)
[2018-08-25 17:29] LABS: INR 2.4 (0.9-1.1); Partial Thromboplastin Ratio 1.4; Partial Thromboplastin Time 38.7 Seconds (21.0-31.0); Prothrombin Time 23.4 Seconds (9.0-12.0)
[2018-08-25 17:34] LABS: Alanine Aminotransferase 16 U/L (12-78); Albumin Level 2.6 gm/dl (3.4-5.0); Aspartate Aminotransferase 29 U/L (15-37); BUN Creatinine Ratio 39.3 (10-20); Blood Urea Nitrogen 37 mg/dl (7-18); Calcium 8.4 mg/dl (8.5-10.1); Carbon Dioxide 28 mmol/L (21-32); Chloride 105 mmol/L (98-107); Creatinine Clr Calc Pharmacy 52.8 ml/min; Est GFR (African American) 71.2; Est GFR (Non-African American) 61.4; Glucose 113 mg/dl (70-99); Magnesium 1.7 mg/dl (1.8-2.4); Potassium 3.8 mmol/L (3.5-5.1); Sodium 139 mmol/L (136-145)
[2018-08-25 17:39] LABS: Albumin Globulin Ratio 0.8 (0.9-2); Alkaline Phosphatase 71 U/L (45-117); Bilirubin,Total 0.3 mg/dl (0.2-1); Globulin 3.4 gm/dl (2.5-4.0); Troponin I < 0.015 ng/ml (0-0.045)
[2018-08-25 17:46] LABS: Influenza A virus by PCR Neg for Influ A (Neg); Influenza B virus by PCR Neg for Influ B (Neg)
[2018-08-25] MEDS ORDERED: SODIUM CHLORIDE 0.9% 1000ML 500 ML IV ONE (18:16)
--- NOTE | 2018-08-25 18:51 | Emergency Department Note ---
Entered by Adela Scales acting as a scribe for Augusto Cortes MD ED Provider Note CHIEF COMPLAINT: Shortness of breath HISTORY OF PRESENT ILLNESS: The patient is a 73 year old female who presents to the Emergency Room with complaints of constant shortness of breath that started this morning. The patie nt reports she had unproductive cough and chest tightness. She notes she has history of COPD. The patient states she is at [facility] for physical therapy. She states she has history of seizures where she had to come to the ER for a few days. The patient reports she is normally on 3 liters of oxygen. She notes her last seizure was on July 08, 2018. The patient reports she is on blood thinner. She notes she took Tylenol at 3 o'clock and had a breathing treatment at 2:30 o'clock. The patient reports she has history of cardiomyopathy. Pt denies LOC, headache, fevers, chills, diaphoresis, visual changes, neck pain, nausea, vomiting, abdominal pain, back pain, melena, hematochezia, urinary symptoms, numbness, weakness, lymphadenopathy, rash, or other complaints. REVIEW OF SYSTEMS: See HPI for pertinent positives and negatives. A total of ten systems were reviewed and were otherwise negative. PMHx/PSHx: Hematoma of right thigh Hypokalemia Edema Non-ischemic cardiomyopathy CHF VARGAS DVT Orthopnea COPD SOCIAL HISTORY: Patient lives at home. PHYSICAL EXAM: GENERAL: Awake, alert, well-appearing, in no distress HENT: Normocephalic, atraumatic. Oropharynx unremarkable. EYES: Normal conjunctiva. Sclera non-icteric. NECK: Inspection normal. Non-tender. Supple. No nuchal rigidity. FROM. No masses. RESPIRATORY: Decreased air movement with some wheezes bilaterally. No rales. Normal respiratory effort. CARDIAC: Tachycardic rate. Normal rhythm. No murmurs. No rubs. Extremities warm and well perfused. Pulses equal. No JVD. GI: Soft, non-distended. No tenderness to palpation. No rebound or guarding. No masses. RECTAL: Deferred. MUSCULOSKELETAL: Atraumatic. Chest examination reveals no tenderness. The back is symmetrical on inspection without obvious abnormality. There is no CVA tenderness to palpation. No joint edema. LOWER EXTREMITIES: Calves are equal size bilaterally and non-tender. 3+ edema. No discoloration. NEURO: Normal sensorium. No sensory or motor deficits noted. SKIN: No rash or jaundice noted. EMERGENCY DEPARTMENT COURSE: 1616: Past medical records reviewed. The patient was evaluated in room C11B, and a complete history and physical examination were performed. 1741: I checked on the patient. The patient is feeling better. Will call the hospitalist regarding the patients case. 1811: I reviewed the patient's case with Zafar Guo. She will evaluate the patient for further management. MEDICAL DECISION MAKING: Triage Nursing notes reviewed and agree them. Additional history obtained from the family. The patient's history was concerning for shortness of breath. Differential diagnosis: Etiologies such as pneumonia, COPD, reactive airway disease, CHF, cardiac ischemia, pulmonary embolism, pneumothorax, musculoskeletal, infections, gastrointestinal, as well as others were entertained. Physical examination: As above. The patient had tachycardia. She was requiring supplemental oxygen due to hypoxia. Mildly low blood pressure. ER treatment provided: IV normal saline DuoNeb IV Levaquin IV vancomycin Supplemental oxygen On reassessment the patient felt better. Diagnostic interpretation by me: The electrocardiogram revealed a sinus tachycardia. ST depression noted. The labs revealed a mild leukocytosis on CBC. No significant anemia. The karsten ent's chemistry panel was unremarkable. Blood cultures pending. Flu testing negative. Imaging studies: Chest x-ray performed concerning for possible pneumonia. Consultation: A consultation was placed with the hospitalist. The case was discussed and diagnostics were reviewed. The patient was evaluated in the ER for further treatment. IMPRESSION: Pneumonia Hypoxia Hypotension Leukocytosis PLAN: Admit The scribe's documentation has been prepared under my direction and personally reviewed by me in its entirety. I confirm that the note above accurately reflects all work, treatment, procedures, and medical decision making performed by me. 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 Family History Other No pertinent family history Social History Preferred Language: Romanian Beliefs That Will Affect Care: None marital status: Current Living Situation: Longterm Current Living Situation Comment: [place] Feels Safe at Home: Yes Smoking Status: Former smoker Hx Alcohol Use: No Hx Substance Use: No Results & Data Vital Signs Vital Signs - 24 hr 08/25/18 16:05 08/25/18 16:16 08/25/18 16:31 Temperature 37.9 C H Temperature Source Oral Sepsis Recent Fever Within 48 Hours No Sepsis New/Unexplained Change in Mental Status No Sepsis Action Taken by Nursing No Action Required Pulse Rate 125 H 122 H 115 H Pulse Rate from SpO2 Sensor 118 H 99 H Pulse Rhythm Respiratory Rate 30 H 34 H 26 H Respiratory Effort / Characteristics Spontaneous Labored Respiratory Depth Normal Respiratory Pattern Regular Blood Pressure 95/69 L 95/69 L 103/73 Blood Pressure Mean 77 77 83 Pulse Oximetry 88 L 82 L 87 L Oxygen Delivery Method Nasal Cannula Nasal Cannula Nasal Cannula Oxygen Flow Rate 3 3 3 08/25/18 16:33 08/25/18 17:32 08/25/18 18:01 Temperature Temperature Source Sepsis Recent Fever Within 48 Hours Sepsis New/Unexplained Change in Mental Status Sepsis Action Taken by Nursing Pulse Rate 125 H 96 H 114 H Pulse Rate from SpO2 Sensor 56 L 123 H Pulse Rhythm Regular Respiratory Rate 30 H 15 24 Respiratory Effort / Characteristics Respiratory Depth Respiratory Pattern Blood Pressure 114/66 90/56 L Blood Pressure Mean 82 67 Pulse Oximetry 88 L 87 L 92 Oxygen Delivery Method Nasal Cannula Nasal Cannula Oxymask Oxygen Flow Rate 3 5 5 Home Medications Current Medication List: was personally reviewed by me Laboratory Data Attestation: I reviewed the patient's lab results. Result diagrams: 08/25/18 17:05 08/25/18 17:05 Lab Results 08/25/18 08/25/18 08/25/18 Range/Units 16:53 17:05 17:05 WBC 11.80 H (4.8-10.8) K/uL RBC 3.65 L (4.2-5.4) M/uL Hgb 12.1 (12.0-16.0) g/dL Hct 37.7 (37-47) % MCV 103.3 H (80-100) fL MCH 33.2 (25-34) pg MCHC 32.1 (32-36) g/dL RDW Std Deviation 60.4 H (36.4-46.3) fL RDW Coeff of Delmer 15.9 H (11.5-14.5) % Plt Count 114 L (130-400) K/uL MPV 8.5 (7.4-10.4) fL Immature Gran % (Auto) 0.8 % Neut % (Auto) 81.9 % Lymph % (Auto) 5.3 % Bay % (Auto) 11.6 % Eos % (Auto) 0.2 % Baso % (Auto) 0.2 % Immature Gran # (Auto) 0.09 H (0.00-0.02) K/uL Neut # (Auto) 9.68 H (1.4-6.5) K/uL Lymph # (Auto) 0.62 L (1.2-3.4) K/uL Bay # (Auto) 1.37 H (0.11-0.59) K/uL Eos # (Auto) 0.02 (0-0.5) K/uL Baso # (Auto) 0.02 (0-0.2) K/uL PT 23.4 H (9.0-12.0) Seconds INR 2.4 H (0.9-1.1) APTT 38.7 H (21.0-31.0) Seconds PTT Ratio 1.4 VBG pH (7.36-7.41) VBG pCO2 (38-50) mmHg VBG pO2 mmHg VBG HCO3 mmol/L VBG O2 Saturation % VBG Base Excess mEq/L Barometric Pressure mm/Hg Sodium (136-145) mmol/L Potassium (3.5-5.1) mmol/L Chloride (98-107) mmol/L Carbon Dioxide (21-32) mmol/L Anion Gap (3-11) BUN (7-18) mg/dl Creatinine (0.6-1.2) mg/dl Est Cr Clr Drug Dosing ml/min Est GFR ( Amer) Est GFR (Non-Af Amer) BUN/Creatinine Ratio (10-20) Glucose (70-99) mg/dl Calcium (8.5-10.1) mg/dl Magnesium (1.8-2.4) mg/dl Total Bilirubin (0.2-1) mg/dl AST (15-37) U/L ALT (12-78) U/L Alkaline Phosphatase (45-117) U/L Troponin I (0-0.045) ng/ml Total Protein (6.4-8.2) gm/dl Albumin (3.4-5.0) gm/dl Globulin (2.5-4.0) gm/dl Albumin/Globulin Ratio (0.9-2) Influenza Type A (PCR) Neg for Influ A (Neg) Influenza Type B (PCR) Neg for Influ B (Neg) 08/25/18 08/25/18 Range/Units 17:05 17:05 WBC (4.8-10.8) K/uL RBC (4.2-5.4) M/uL Hgb (12.0-16.0) g/dL Hct (37-47) % MCV (80-100) fL MCH (25-34) pg MCHC (32-36) g/dL RDW Std Deviation (36.4-46.3) fL RDW Coeff of Delmer (11.5-14.5) % Plt Count (130-400) K/uL MPV (7.4-10.4) fL Immature Gran % (Auto) % Neut % (Auto) % Lymph % (Auto) % Bay % (Auto) % Eos % (Auto) % Baso % (Auto) % Immature Gran # (Auto) (0.00-0.02) K/uL Neut # (Auto) (1.4-6.5) K/uL Lymph # (Auto) (1.2-3.4) K/uL Bay # (Auto) (0.11-0.59) K/uL Eos # (Auto) (0-0.5) K/uL Baso # (Auto) (0-0.2) K/uL PT (9.0-12.0) Seconds INR (0.9-1.1) APTT (21.0-31.0) Seconds PTT Ratio VBG pH 7.51 H (7.36-7.41) VBG pCO2 34 L (38-50) mmHg VBG pO2 32 mmHg VBG HCO3 26 mmol/L VBG O2 Saturation 64.1 % VBG Base Excess 3.4 mEq/L Barometric Pressure 735.0 mm/Hg Sodium 139 (136-145) mmol/L Potassium 3.8 (3.5-5.1) mmol/L Chloride 105 (98-107) mmol/L Carbon Dioxide 28 (21-32) mmol/L Anion Gap 7.0 (3-11) BUN 37 H (7-18) mg/dl Creatinine 0.93 (0.6-1.2) mg/dl Est Cr Clr Drug Dosing 52.8 ml/min Est GFR ( Amer) 71.2 Est GFR (Non-Af Amer) 61.4 BUN/Creatinine Ratio 39.3 H (10-20) Glucose 113 H (70-99) mg/dl Calcium 8.4 L (8.5-10.1) mg/dl Magnesium 1.7 L (1.8-2.4) mg/dl Total Bilirubin 0.3 (0.2-1) mg/dl AST 29 (15-37) U/L ALT 16 (12-78) U/L Alkaline Phosphatase 71 (45-117) U/L Troponin I < 0.015 (0-0.045) ng/ml Total Protein 6.0 L (6.4-8.2) gm/dl Albumin 2.6 L (3.4-5.0) gm/dl Globulin 3.4 (2.5-4.0) gm/dl Albumin/Globulin Ratio 0.8 L (0.9-2) Influenza Type A (PCR) (Neg) Influenza Type B (PCR) (Neg) Administered Medications Vancomycin HCl 1,500 mg/ (Sodium Chloride) 530 mls @ 200 mls/hr IV NOW ONE Stop: 08/25/18 19:44 Last Admin: 08/25/18 17:58 Dose: 200 mls/hr Documented by: [id number] Discontinued Medications Albuterol (Duoneb) 3 ml INH NOW STA Stop: 08/25/18 16:26 Last Admin: 08/25/18 17:19 Dose: 3 ml Documented by: [id number] Levofloxacin/Dextrose (Levaquin/D5w) 750 mg in 150 mls @ 100 mls/hr IV NOW STA Stop: 08/25/18 18:35 Last Admin: 08/25/18 17:19 Dose: 100 mls/hr Documented by: [id number] Methylprednisolone (Solumedrol) 125 mg IV NOW STA Stop: 08/25/18 16:26 Last Admin: 08/25/18 17:19 Dose: 125 mg Documented by: [id number] Imaging Data Radiologist's Impression: Radiology results as stated below per my review and the radiologist's interpretation: XR chest 1V portable CLINICAL HISTORY: Dyspnea COMPARISON STUDY: Chest radiograph August 07, 2018. FINDINGS: Lung volumes are mildly diminished. There is no pneumothorax. There may be trace bilateral pleural effusions. Mild bibasilar opacities are present. There is possible mild right midlung opacity. Pulmonary vascular congestion is noted. IMPRESSION: 1. Suspected developing mild right midlung opacity which may reflect pneumonia. 2. Pulmonary vascular congestion. 2. Trace bilateral pleural effusions with bibasilar opacities favor atelectasis although consolidation could appear similar. Electronically signed by: Shin Larose M.D. 08/25/2018 4:48 PM ECG Data Attestation: I personally reviewed and interpreted this ECG as follows: Indication: SOB/dyspnea Rate (beats per minute): 118 Rhythm: sinus tachycardia Findings: + other (Poor R wave progression), + PVC and + ST depression (Mild lateral); no ST elevation Blood Pressure Blood Pressure Findings: Low blood pressure Blood Pressure Disposition: further management by hospitalist Discharge Plan Visit Data Chief Complaint: Shortness of Breath/Dyspnea ED Provider: Augusto Cortes Discharge Problem: Pneumonia, Leukocytosis, Hypoxia, Hypotension Patient Disposition: Being Evaluated by Hospitalist Forms Stand Alone Forms: My [facility] Prescriptions Prescriptions: No Action aspirin [Aspir-81] 81 mg Tablet,Delayed Release (Dr/Ec) 81 mg PO DAILY RF: 0 Incruse Ellipta 62.5 mcg/actuation Blister With Device 1 inh INHALATION DAILY RF: 0 Breo Ellipta 200-25 mcg/dose Blister With Device 1 inh INHALATION DAILY RF: 0 metoprolol succinate 25 mg tablet extended release 24 hr 25 mg PO HS RF: 0 divalproex 500 mg tablet extended release 24 hr 1,000 mg PO Q12H RF: 0 warfarin [Coumadin] 5 mg Tablet 5 mg PO DAILY RF: 0 acetaminophen 325 mg Tablet 650 mg PO Q6H MDD 3G PRN (Reason: Fever Or Pain) RF: 0 magnesium oxide 400 mg (241.3 mg magnesium) Tablet 400 mg PO QAM 30 Days Qty: 30 RF: 0 furosemide 40 mg tablet 40 mg PO BID RF: 0 multivitamin [Multiple Vitamins] Tablet 1 tab PO DAILY RF: 0 potassium chloride [Klor-Con M10] 10 mEq tablet,ER particles/crystals 10 meq PO TID RF: 0 ipratropium bromide 17 mcg/actuation Hfa Aerosol Inhaler 2 puff INHALATION Q24W PRN (Reason: Shortness Of Breath) RF: 0 Referrals Referrals: Shameka Coe [Primary Care Provider] - Discharge Problem: Pneumonia Qualifiers: Pneumonia type: due to unspecified organism Laterality: unspecified laterality Lung location: unspecified part of lung Qualified Code(s): J18.9 - Pneumonia, unspecified organism Leukocytosis Qualifiers: Leukocytosis type: unspecified Qualified Code(s): D72.829 - Elevated white blood cell count, unspecified Hypotension Qualifiers: Hypotension type: unspecified hypotension type Qualified Code(s): I95.9 - Hypotension, unspecified The scribe's documentation has been prepared under my direction and personally reviewed by me in its entirety. I confirm that the note above accurately reflects all work, treatment, procedures, and medical decision making performed by me.
[2018-08-25] MEDS ORDERED: PIPERACILL/TAZOBAC CONSULT ACTIVE PRN (20:30)
[2018-08-25] MEDS ORDERED: DIVALPROEX DELAY RELEASE 500 MG TAB PO ONE (20:30)
[2018-08-25] MEDS ORDERED: ICU PROTOCOL FOR HYPERGLYCEMIA PRN ×2 (20:30→20:59)
[2018-08-25] MEDS ORDERED: XOPENEX/ATROVENT 0.63mg/0.5MG NEB COMBO NEB SCH (20:30)
[2018-08-25 20:44] LABS: Appearance Urine Clear (Clear); Bilirubin Urine Negative (Negative); Blood Urine Negative (Negative); Color Urine Yellow; Glucose Urine UA Negative (Negative); Ketones Urine Negative (Negative); Leukocyte Esterase Urine Negative (Negative); Nitrite Urine Negative (Negative); Protein Urine Negative (Negative); Specific Gravity Urine 1.016 (1.000-1.030); Urobilinogen Urine Negative (Negative)
--- NOTE | 2018-08-25 21:24 | Critical Care Consultation ---
Date of Consultation August 25, 2018 Assessment & Plan (1) Admitted to intensive care unit: Reason Critically Ill: 73-year-old female with acute decompensated heart failure with concerns for superimposed RIGHT middle lobe healthcare associated pneumonia with history of Takotsubo cardiomyopathy, AVM s/p Radiation w/ subsequent development of seizure disorder presumed to be related to vasogenic edema. NEURO - * CAM ICU: NEGATIVE * Seizure Disorder: * Presumed to be related to Vasogenic Edema s/p Radiation Therapy for "deep" AVM. * Previously on Decadron PO which has been weaned off at this point. * Continue PO Depakote. * Monitor for breakthrough seizure in the setting of catecholamine surge related to current illness. CARDIAC/VASCULAR - * With presentation concerning for decompensated HF, would lean towards Dobutamine/Dopamine of necessary. * Given patient's recent significant hx of Takotsubo Cardiomyopathy, will add AM echo for further assessment. * Consider addition of vasopressors if BP not responsive w/ typical resuscitative efforts. * Gentle Diuresis as pressures tolerate. * Will check random cortisol as patient has been on PO steroids for an extended period of time. * Addition of Solu-medrol for pulmonary help as well as supportive in current stress state. * EKG: Sinus Tach@118bpm, PVCs, Slight lateral ST depression. * Monitor on telemetry. RESPIRATORY - * Acute Hypoxic Respiratory Distress 2/2 RML PNA with Pulmonary Edema and Pleural Effusions: * Concerns for RML PNA. * On review of CXR, there does appear to be a linear infiltrative versus atelectatic change at the base of the RIGHT Middle lobe. In the setting of fever, tachycardia, and hypoxia, agree with covering for HAP at this time. * Recommend Positive Pressure Ventilation if patient tolerates. Consider High Flow as alternative. * Addition of steroids w/ audible wheezing. * Continue home inhalers. * Certainly more concerning w/ underlying COPD, but without any significant respiratory distress at this point. * In discussion w/ attending, will order CTA for evaluation of possible thoracic AVM which could contribute to blood shunting and subsequent hypoxic state. GI/NUTRITION - * Low sodium diet. * May benefit from sodium restriction as well. RENAL/LYTES - * No significant electrolyte abnormality. * Will monitor closely if further if Lasix are initiated. * IVF: NSS@100mL/hr. - * Cox in place - Strict I&Os. ENDO - * No h/o DM or Thyroid Dz. * BSGs per unit protocol. ISS --> gtt per unit policy. HEME - * Stable H&H: * Therapeutic INR. ID - * RML PNA: * Covering for HAP w/ recent admission and [facility] * Vanc and Levaquin in the ED. * Agree with Vanc and Zosyn/Cefepime alone at this point. * May d/c Vanc pending MRSA culture. * Recheck Lactate. * Add ProCal to help delineate infectious cause. LINES/IV ACCESS - * PIVs x2 * Cox DVT PROPHYLAXIS - * Currently on Coumadin. Continue. * SCDs I have personally spent 60 minutes of critical care time in the direct management of this patient. This is a life/limb threatening event. This includes time spent evaluating patient, direct bedside care, chart review, placing orders, interpretation of diagnostic studies, discussion with consultants, patient, and family members, as well as other required patient management activities. This time is exclusive of all separately billable procedures, and teaching time and separate from and in addition to any other critical care service time. Thank you for allowing us to participate in the care of this patient. Please refer to my attending physician's documentation for any further recommendations. The patient was seen, examined independently, agree with assessment and plan of my colleagues at the moment, chart reviewed personally as well. This is 73-year-old female with history of COPD, diastolic heart failure, [facility], presented to the hospital with increasing shortness of breath accompanied with persistent cough. She did have also occasional fever. The patient did not have sputum production. Her oxygen requirement noted to be on the high side. Patient was given high flow oxygen and admitted to the ICU for further management. The patient uses 3 L of oxygen on a regular basis. The patient level of ambulation is very minimal. She did not have any chest pain this time. No hemoptysis. She has no dysphasia, aspiration, nausea or vomiting. She does have recent history of AVM with brain radiation according to her. It was not gamma knife preparation. She has significant orthopnea cannot lay flat. She does not have nocturnal symptoms. Occasionally once a year she require prednisone course for COPD. Her past medical history, was reviewed. Social history the patient was smoker up until 3 years ago, she quit. [facility]. She is DNR. Her family history is not contributing to her current illness. Her physical exam revealed 73-year-old female, does not appear to be in any respiratory distress, S1-S2 regular rate and rhythm, distant breath sounds bilaterally, minimal wheezing mainly at the bases, abdomen is benign, edema 2+ in the periphery. Her labs were reviewed also personally which showed leukocytosis, stable hematocrit, platelets is 85 dropping down from over 14. BUN and creatinine has been also stable in this patient. ABG with mild respiratory alkalosis. Pro- calcitonin is elevated to 7.2. She has positive MRSA in the nares. Chest x-ray which I reviewed personally showed bilateral infiltrates, CAT scan of the chest also confirmed the diagnosis. She does have significant emphysematous changes and pulmonary vascular congestion. Impression: 1. COPD, exacerbated by the presence of healthcare acquired pneumonia. 2. healthcare acquired pneumonia, presumably. 3. Diastolic heart failure. EF of 70%. 4. Fluid overload. 5. Chronic hypoxic respiratory failure. Plan: 1. I will start albumin with Lasix in this patient 4 times daily for the next 24 hours. 2. Agree with Zosyn and vancomycin. 3. Change Solu-Medrol to 40 mg IV every 12 hours and change it to prednisone p.o. 60 mg in the morning. 4. GI and DVT prophylaxis, the patient is already on Coumadin. 5. No evidence of AVM or PE on the CAT scan of the chest. 6. Continue with Coumadin. 7. Watch for the platelets. 8. Bronchodilators. 9. Patient can be dispositioned to telemetry floor. Will discuss with the hospitalist service. Thank you, critical care time spent with the patient was 45 minutes. (2) Acute decompensated heart failure: (3) AVM (arteriovenous malformation) brain: (4) Seizures: (5) Takotsubo cardiomyopathy: (6) HCAP (healthcare-associated pneumonia): (7) Pulmonary edema: (8) COPD (chronic obstructive pulmonary disease): (9) Vasogenic edema: (10) [facility] current use of anticoagulants with INR goal of 2.0-3.0: (11) Sepsis: History of Present Illness Attending Physician: Vaughn Shannon MD Patient is a 73-year-old female with a recent significant past medical history of "deep" arteriovenous malformation of the brain for which she underwent radiation therapy x1 at [facility]. Shortly after AVM repair, the patient developed seizures with eventual progression to status epilepticus for which she was seen and evaluated at [place] a second time. She has had 2 separate episodes of breakthrough seizure activity requiring hospitalizations. During those episodes, there was concern that subsequent development of vasogenic edema status post radiation therapy was the culprit with weaning down her oral steroids. During recent admission earlier this month, the patient was weaned completely off of her oral steroids without issue. She remains on 1 g of Depakote twice daily. During recent admission, she presented with volume overload requiring aggressive diuresis. She reports that she has never really decreased in her peripheral edema since intervention. She remains on Lasix 40 mg twice daily. Earlier today, the patient developed rigors, fever, and cough. She was sent from her nursing facility to the emergency department for further evaluation and management. In the emergency department, the patient was found to have relatively labile blood pressures with tachycardia and low-grade fever. She received IV fluid boluses as well as acetaminophen. There was concern for RIGHT middle lobe infiltrative change on x-ray. She was treated with vancomycin and Levaquin. Zosyn has been added for HAP coverage. She was noted to have a slight leukocytosis. No significant anemia. INR nearly therapeutic at 2.4. No significant electrolyte abnormalities were appreciated. Lactate was not elevated. Troponin was not elevated. On evaluation in the ICU, the patient is awake, alert, and oriented. She reports that she feels much better now that she is without the rigors. She describes rigors with associated cough and fever. She currently denies any headaches, dizziness, lightheadedness, chest pain, palpitations, pleuritic pain, nausea, vomiting, abdominal discomfort, or extremity pain. Allergies Allergy/AdvReac Type Severity Reaction Status Date / Time Sulfa (Sulfonamide Allergy Mild rash Verified 07/30/18 19:01 Antibiotics) alcohol Allergy Unknown Recovering Verified 07/30/18 19:01 Alcoholic Opioids - Morphine Analogues AdvReac HISTORY OF Verified 07/30/18 19:01 ADDICTION Home Medications Home Medications Medication Instructions Recorded Confirmed Type Breo Ellipta 1 inh INHALATION DAILY 04/11/18 08/25/18 History Incruse Ellipta 1 inh INHALATION DAILY 04/11/18 08/25/18 History aspirin [Aspir-81] 81 mg PO DAILY 04/11/18 08/25/18 History metoprolol succinate 25 mg PO DAILY 06/09/18 08/25/18 History acetaminophen 650 mg PO Q6H PRN MDD 3G 07/30/18 08/25/18 History divalproex 1,000 mg PO Q12H 07/30/18 08/25/18 History warfarin [Coumadin] 5 mg PO DAILY 07/30/18 08/25/18 History magnesium oxide 400 mg PO QAM 30 Days #30 tab 08/09/18 08/25/18 Rx furosemide 40 mg PO BID 08/25/18 08/25/18 History ipratropium bromide 2 puff INHALATION Q2H PRN 08/25/18 08/25/18 History multivitamin [Multiple Vitamins] 1 tab PO DAILY 08/25/18 08/25/18 History potassium chloride [Klor-Con M10] 10 meq PO TID 08/25/18 08/25/18 History Patient History Medical History Hematoma of right thigh (Resolved) Non-ischemic cardiomyopathy (Chronic) Obesity (BMI 30.0-34.9) (Chronic) DVT (deep venous thrombosis) (Chronic) FDC current use of anticoagulants with INR goal of 2.0-3.0 (Chronic) Vasogenic edema (Resolved) AVM (arteriovenous malformation) brain (Chronic) Seizures (Chronic) AA (alcohol abuse) (Resolved) COPD (chronic obstructive pulmonary disease) (Chronic) Surgical History History of appendectomy (Chronic) History of cataract surgery (Chronic) Social History Communication Ability: Effective Beliefs That Will Affect Care: None marital status: Current Living Situation: Detention Current Living Situation Comment: [facility] Other Information That Helps Us Care for You: No Feels Safe at Home: Yes Smoking Status: Smoker, status unknown Hx Alcohol Use: No Hx Substance Use: No Review of Systems A complete 10 point review of systems was reviewed with the patient with pertinent positives and negatives as per history of present illness. All else were negative. Physical Exam Vital Signs (Past 24 Hours): Last Vital Signs Temp 36.9 C 08/25/18 20:30 Pulse 95 H 08/25/18 20:30 Resp 26 H 08/25/18 20:30 BP 96/57 L 08/25/18 20:30 Pulse Ox 89 L 08/25/18 20:30 Physical Exam: VITAL SIGNS - Vital signs and nursing notes were reviewed. GENERAL - 73-year-old female appearing her stated age who is in no acute distress. Communicates well with provider and answers questions appropriately. SKIN - Without rashes. HEAD - NC/AT. EYES - PERRL with EOMI bilaterally. Sclera anicteric. Palpebral conjunctiva pink and moist with no injection noted. EARS - No deformities of external structures noted on gross examination bilaterally. NOSE - Midline and without cyanosis. MOUTH/OROPHARYNX - Without perioral cyanosis. Buccal mucosa pink and moist and without leukoplakia. Tongue midline with equal elevation of palate bilaterally. NECK - Neck with FROM. Supple to palpation. LUNGS - Chest wall symmetric without accessory muscle use, intercostals retractions, or central cyanosis. Normal vesicular breath sounds CTA B/L. Inspiratory wheezes noted in the anterior apicies bilaterally. CARDIAC - RRR with S1/S2. No murmur, rubs, or gallops appreciated. ABDOMEN - Abdominal contour obese without pulsations or visible masses. BS normoactive all four quadrants. No tenderness, palpable masses, hepatosplenomegaly, or ascites noted. EXTREMITIES - No clubbing or peripheral cyanosis. Pretibial edema present. +3/5 radial and dorsalis pedis pulses palpated throughout. +5/5 strength noted in UE/LE bilaterally. NEUROLOGIC - Cranial nerves II through XII grossly intact. Sensory intact to light touch throughout. PSYCH - A&Ox3 and cooperates fully with examiner. Pt is very pleasant and interacts well with examiner.
--- NOTE | 2018-08-25 21:25 | Pharmacy Report ---
Pharmacy Abx Initial Consult - Date of Service August 25, 2018 - Pharmacy Dosing Scope Date of Consult: 08/25/18 Consultation requested by: Sheri Cowart Pharmacy is consulted to initiate vancomycin and Zosyn IV dosing therapy, order appropriate labs and adjust drug dose/frequency. - Subjective The patient is a 73 year old F admitted on 08/25/18 19:10 with SOB. - Objective Height: 5 ft 2 in Weight: 74.4 kg Vital Signs (Past 12hrs): Vital Signs Temp Pulse Pulse Resp BP BP Pulse Ox 08/25/18 20:30 36.9 C 95 H 26 H 96/57 L 89 L 08/25/18 19:52 105 H 23 81/56 L 95 08/25/18 19:35 105 H 23 81/56 L 81 L 08/25/18 19:34 105 H 23 77/52 L 80 L 08/25/18 19:31 102 H 22 65/49 L 89 L 08/25/18 19:10 108 H 18 84/57 L 88 L 08/25/18 19:01 109 H 17 84/57 L 90 08/25/18 18:49 111 H 17 82/68 L 91 08/25/18 18:41 113 H 22 78/49 L 93 08/25/18 18:31 116 H 19 77/53 L 80 L 08/25/18 18:01 114 H 24 90/56 L 92 08/25/18 17:32 96 H 15 114/66 87 L 08/25/18 16:33 125 H 30 H 88 L 08/25/18 16:31 115 H 26 H 103/73 87 L 08/25/18 16:16 122 H 34 H 95/69 L 82 L 08/25/18 16:05 37.9 C H 125 H 30 H 95/69 L 88 L Lab Results (24hrs): Laboratory Tests (24 Hours) 08/25/18 08/25/18 17:05 17:05 WBC 11.80 H Neut # (Auto) 9.68 H Creatinine 0.93 Est Cr Clr Drug Dosing 52.8 Micro Results: 08/25/18 20:20 Urine Culture - Pending Urine,Clean Catch 08/25/18 17:18 Blood Culture - Pending Blood 08/25/18 17:05 Blood Culture - Pending Blood - Risk Factors for Resistance * Resident in an extended-care facility - Assessment & Plan Assessment 73 year old F admitted with SOB, possible HAP Plan vancomycin/Zosyn for treatment of HAP Vancomycin IV * Estimated PK Parameters: Vd 0.7 L/kg, Alfredito 0.048 hr-1, t1/2 14.4 hr * Loading dose: 1500 mg (20 mg/kg) * Maintenance dose: 1000 mg IV (14 mg/kg) every 14 hours * Goal trough level for pulmonary indication : 15 to 20 mcg/mL * Trough ordered for 08/27/18 Piperacillin/tazobactam * 4.5 g bolus administered over 30 minutes, then 4.5 g IV extended infusion every 8 hours for CrCl greater than 20 mL/min * Aggressive dosing selected due to critically ill status Pharmacy will continue to follow and will adjust dose/frequency as necessary. Thank you.
[2018-08-25] MEDS: SODIUM CHLORIDE 0.9% 1000ML 1,000 ML IV SCH (21:27)
--- NOTE | 2018-08-25 21:29 | History & Physical Report ---
Date of Service August 25, 2018 Assessment & Plan (1) Sepsis: (2) HCAP (healthcare-associated pneumonia): (3) COPD (chronic obstructive pulmonary disease): -Admit to ICU -Patient presenting from [facility] for evaluation of cough, shortness of breath, fever -Upon arrival to the ED, patient found to have a low-grade temp of 37.9, tachycardic, hypotensive, hypoxia requiring 6 L of oxygen via oxygen mask; POC lactic acid 1.5, WBC 11.8K -CXR showing a possible developing right middle lobe pneumonia -ABG demonstrating a respiratory alkalosis -Admitting to ICU for close monitoring of volume status in the setting of sepsis and history of profound volume overload recently -S/P Vanco and Levaquin in the ED; will continue with Vanco and Zosyn for now, check MRSA nasal swab and if negative likely can discontinue Vanco -S/P Solu-Medrol 125 mg IV in the ED, will defer to ICU for further steroid dosing -Continue [id number] nebulizers -Blood and sputum cultures (4) Non-ischemic cardiomyopathy: -Recent history includes an EF as low as 25%, however echocardiogram from 07/31/18 demonstrating EF > 70% -Recent admission for volume overload and increase in diuretics -Holding diuretics for now due to sepsis -Hold beta-joão secondary to hypotension, resume as able -Monitor volume status closely (5) AVM (arteriovenous malformation) brain: (6) Seizures: (7) Vasogenic edema: -Currently well controlled on Depakote -Had been on Decadron previously however no current use (8) DVT (deep venous thrombosis): -Anticoagulated on Coumadin, INR 2.4 -Continue Coumadin, dose according to INR (9) DVT prophylaxis: -On Coumadin with therapeutic INR History of Present Illness Chief Complaint: Fever, cough Primary Care Provider: [facility] 73-year-old female who presents to the ED for evaluation of fever and cough. Patient was recently admitted to [facility] 07/30 through 08/09 for volume overload. At the time of discharge, patient had an increase in her diuretics. Other recent history includes, status post brain radiation for treatment of AVM with subsequent complications including vasogenic edema and seizures /status epilepticus. Patient now off steroids and well managed on Depakote. After previous admission, patient was discharged to [facility] for rehab needs. Patient notes over the past couple of days she has been having increasing fatigue and generalized weakness. When she woke up this morning, she reports she had chills and was shaking. She also notes a nonproductive cough and some shortness of breath. She is found to be febrile and had an increased oxygen requirement. She was then sent to the ED for further evaluation. Patient reports that her lower extremity edema continues to improve. She denies chest pain or palpitations. No lightheadedness, dizziness, diaphoresis, syncopal events. She denies abdominal pain, nausea, vomiting, diarrhea. No urinary symptoms.In the ED, patient presented with a low-grade temp of 37.9, WBC 11.8 K, POC lactic acid 1.5, tachycardia, hypotension. Patient is currently requiring 4 L via oxygen mask to maintain saturations ~92%. Patient was given IV Vanco, IV Levaquin, Solu-Medrol 125 mg IV. She was started on IVF cautiously due to her recent history of profound volume overload. Allergies Allergy/AdvReac Type Severity Reaction Status Date / Time Sulfa (Sulfonamide Allergy Mild rash Verified 07/30/18 19:01 Antibiotics) alcohol Allergy Unknown Recovering Verified 07/30/18 19:01 Alcoholic Opioids - Morphine Analogues AdvReac HISTORY OF Verified 07/30/18 19:01 ADDICTION Home Medications Home Medications Medication Instructions Recorded Confirmed Type Breo Ellipta 1 inh INHALATION DAILY 04/11/18 08/25/18 History Incruse Ellipta 1 inh INHALATION DAILY 04/11/18 08/25/18 History aspirin [Aspir-81] 81 mg PO DAILY 04/11/18 08/25/18 History metoprolol succinate 25 mg PO DAILY 06/09/18 08/25/18 History acetaminophen 650 mg PO Q6H PRN MDD 3G 07/30/18 08/25/18 History divalproex 1,000 mg PO Q12H 07/30/18 08/25/18 History warfarin [Coumadin] 5 mg PO DAILY 07/30/18 08/25/18 History magnesium oxide 400 mg PO QAM 30 Days #30 tab 08/09/18 08/25/18 Rx furosemide 40 mg PO BID 08/25/18 08/25/18 History ipratropium bromide 2 puff INHALATION Q2H PRN 08/25/18 08/25/18 History multivitamin [Multiple Vitamins] 1 tab PO DAILY 08/25/18 08/25/18 History potassium chloride [Klor-Con M10] 10 meq PO TID 08/25/18 08/25/18 History Past Med/Surg History Medical History Hematoma of right thigh (Resolved) Non-ischemic cardiomyopathy (Chronic) Obesity (BMI 30.0-34.9) (Chronic) DVT (deep 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 with INR goal of 2.0-3.0 (Chronic) Vasogenic edema (Resolved) AVM (arteriovenous malformation) brain (Chronic) Seizures (Chronic) AA (alcohol abuse) (Resolved) COPD (chronic obstructive pulmonary disease) (Chronic) Surgical History History of appendectomy (Chronic) History of cataract surgery (Chronic) Social History Preferred Language: Vietnamese Beliefs That Will Affect Care: None marital status: Current Living Situation: Group Home Current Living Situation Comment: [facility] Feels Safe at Home: Yes Smoking Status: Former smoker Hx Alcohol Use: No Hx Substance Use: No Review of Systems ROS per HPI, all other systems reviewed and negative Physical Exam Vital Signs (Past 24 Hours): Last Vital Signs Temp 36.9 C 08/25/18 20:30 Pulse 95 H 08/25/18 20:30 Resp 26 H 08/25/18 20:30 BP 96/57 L 08/25/18 20:30 Pulse Ox 89 L 08/25/18 20:30 Constitutional: WD/WN, vitals as above Eyes: PERRL, conjunctivae normal, anicteric sclerae ENMT: external ear and nose normal, oropharynx normal Respiratory: normal respiratory effort; no respiratory distress Auscultation: + diminished lung sounds and + crackles (Faint, bilateral bases) Cardiovascular: Rate/Rhythm: regular rate and regular rhythm Vessels: normal peripheral pulses Extremities: + edema (+2-3 BLE) Gastrointestinal (Abdomen): normal bowel sounds, soft, nontender, no hepatosplenomegaly Musculoskeletal: no cyanosis or clubbing, extremities motor strength 5/5 Skin: no rashes, warm and dry Neurologic: PERRL, EOMI, accommodation nl, no face palsy, no dysarthria Psychiatric: A+Ox3, euthymic affect Results & Data Laboratory Results Laboratory Last Values WBC 11.80 K/uL (4.8-10.8) H 08/25/18 17:05 RBC 3.65 M/uL (4.2-5.4) L 08/25/18 17:05 Hgb 12.1 g/dL (12.0-16.0) 08/25/18 17:05 Hct 37.7 % (37-47) 08/25/18 17:05 MCV 103.3 fL (80-100) H 08/25/18 17:05 MCH 33.2 pg (25-34) 08/25/18 17:05 MCHC 32.1 g/dL (32-36) 08/25/18 17:05 RDW Std Deviation 60.4 fL (36.4-46.3) H 08/25/18 17:05 RDW Coeff of [place]mer 15.9 % (11.5-14.5) H 08/25/18 17:05 Plt Count 114 K/uL (130-400) L 08/25/18 17:05 MPV 8.5 fL (7.4-10.4) 08/25/18 17:05 Immature Gran % (Auto) 0.8 % 08/25/18 17:05 Neut % (Auto) 81.9 % 08/25/18 17:05 Lymph % (Auto) 5.3 % 08/25/18 17:05 [place] % (Auto) 11.6 % 08/25/18 17:05 Eos % (Auto) 0.2 % 08/25/18 17:05 Baso % (Auto) 0.2 % 08/25/18 17:05 Immature Gran # (Auto) 0.09 K/uL (0.00-0.02) H 08/25/18 17:05 Neut # (Auto) 9.68 K/uL (1.4-6.5) H 08/25/18 17:05 Lymph # (Auto) 0.62 K/uL (1.2-3.4) L 08/25/18 17:05 [place] # (Auto) 1.37 K/uL (0.11-0.59) H 08/25/18 17:05 Eos # (Auto) 0.02 K/uL (0-0.5) 08/25/18 17:05 Baso # (Auto) 0.02 K/uL (0-0.2) 08/25/18 17:05 PT 23.4 Seconds (9.0-12.0) H 08/25/18 17:05 INR 2.4 (0.9-1.1) H 08/25/18 17:05 APTT 38.7 Seconds (21.0-31.0) H 08/25/18 17:05 PTT Ratio 1.4 08/25/18 17:05 VBG pH 7.51 (7.36-7.41) H 08/25/18 17:05 VBG pCO2 34 mmHg (38-50) L 08/25/18 17:05 VBG pO2 32 mmHg 08/25/18 17:05 VBG HCO3 26 mmol/L 08/25/18 17:05 VBG O2 Saturation 64.1 % 08/25/18 17:05 VBG Base Excess 3.4 mEq/L 08/25/18 17:05 Barometric Pressure 735.0 mm/Hg 08/25/18 17:05 Sodium 139 mmol/L (136-145) 08/25/18 17:05 Potassium 3.8 mmol/L (3.5-5.1) 08/25/18 17:05 Chloride 105 mmol/L (98-107) 08/25/18 17:05 Carbon Dioxide 28 mmol/L (21-32) 08/25/18 17:05 Anion Gap 7.0 (3-11) 08/25/18 17:05 BUN 37 mg/dl (7-18) H 08/25/18 17:05 Creatinine 0.93 mg/dl (0.6-1.2) 08/25/18 17:05 Est Cr Clr Drug Dosing 52.8 ml/min 08/25/18 17:05 Est GFR ( Amer) 71.2 08/25/18 17:05 Est GFR (Non-Af Amer) 61.4 08/25/18 17:05 BUN/Creatinine Ratio 39.3 (10-20) H 08/25/18 17:05 Glucose 113 mg/dl (70-99) H 08/25/18 17:05 POC Lactic Acid Imtiaz 1.53 mmol/L (0.90-1.70) 08/25/18 17:13 Calcium 8.4 mg/dl (8.5-10.1) L 08/25/18 17:05 Magnesium 1.7 mg/dl (1.8-2.4) L 08/25/18 17:05 Total Bilirubin 0.3 mg/dl (0.2-1) 08/25/18 17:05 AST 29 U/L (15-37) 08/25/18 17:05 ALT 16 U/L (12-78) 08/25/18 17:05 Alkaline Phosphatase 71 U/L (45-117) 08/25/18 17:05 Troponin I < 0.015 ng/ml (0-0.045) 08/25/18 17:05 Total Protein 6.0 gm/dl (6.4-8.2) L 08/25/18 17:05 Albumin 2.6 gm/dl (3.4-5.0) L 08/25/18 17:05 Globulin 3.4 gm/dl (2.5-4.0) 08/25/18 17:05 Albumin/Globulin Ratio 0.8 (0.9-2) L 08/25/18 17:05 Urine Color Yellow 08/25/18 20:20 Urine Appearance Clear (Clear) 08/25/18 20:20 Urine pH 6.0 (4.5-7.5) 08/25/18 20:20 Ur Specific [place] 1.016 (1.000-1.030) 08/25/18 20:20 Urine Protein Negative (Negative) 08/25/18 20:20 Urine Glucose (UA) Negative (Negative) 08/25/18 20:20 Urine Ketones Negative (Negative) 08/25/18 20:20 Urine Blood Negative (Negative) 08/25/18 20:20 Urine Nitrite Negative (Negative) 08/25/18 20:20 Urine Bilirubin Negative (Negative) 08/25/18 20:20 Urine Urobilinogen Negative (Negative) 08/25/18 20:20 Ur Leukocyte Esterase Negative (Negative) 08/25/18 20:20 Influenza Type A (PCR) Neg for Influ A (Neg) 08/25/18 16:53 Influenza Type B (PCR) Neg for Influ B (Neg) 08/25/18 16:53 Diagnostic Findings CXR IMPRESSION: 1. Suspected developing mild right midlung opacity which may reflect pneumonia. 2. Pulmonary vascular congestion. 2. Trace bilateral pleural effusions with bibasilar opacities favor atelectasis although consolidation could appear similar. Code Status & VTE Plan Code Status Patient is a DNR as per my discussion with her, however she does give consent for elective intubation. Supervising Physician Co-Signing Physician Notes I have seen and examined the patient with nurse practitioner and agree with the history and assessment as documented by nurse practitioner and would like to comment in addition That patient currently in ICU bed and that she is on high oxygen supplementation of 5 liters/min because of suspected developing mild right midlung opacity which may reflect pneumonia and patients presentation correlates with infection as she developed febrile temperature prior to coming to hospital. Patient does not appear to be in distress at time of my exam and is awake and alert and moves all extremities with bilateral lower extremity edema and regular heart rate. In addition to broad spectrum antibiotics the intensive care team will be starting patient on CPAP Will continue broad spectrum antibiotics with nebulizer treatments and respiratory dosed solumedrol. Agree with other medical issues and plans as documented by nurse practitioner Will appreciate further overnight care by ICU team and ICU physician
[2018-08-25] MEDS ORDERED: PIPERACILLIN/TAZOBACTAM 4.5 GM in DEXTROSE 5% 100 ML IV ONE (22:00)
[2018-08-25] MEDS ORDERED: ALBUMIN 25% 50 ML IV ONE (23:27)
[2018-08-26] MEDS ORDERED: FUROSEMIDE 20 MG in SYRINGE 0 ML IV ONE (01:16)
[2018-08-26] MEDS ORDERED: ALBUMIN 25% 50 ML IV ONE (01:16)
[2018-08-26] MEDS: PIPERACILLIN/TAZOBACTAM 4.5 GM in DEXTROSE 5% 100 ML IV SCH ×3 (01:31→17:36)
[2018-08-26] MEDS: IPRATROPIUM BROMIDE NEB SOLN 0.02% 2.5 ML VIAL INH SCH ×4 (02:01→20:04)
[2018-08-26] MEDS: LEVALBUTEROL HCL 0.63 MG/3 ML NEB NEB SCH ×4 (02:01→20:05)
[2018-08-26] MEDS: methylPREDNISolone 40 MG in SYRINGE 0 ML IV SCH ×3 (02:41→17:32)
[2018-08-26 05:01] LABS: Hematocrit (blood only) 31.1 % (37-47); Hemoglobin 9.9 g/dL (12.0-16.0); Mean Corpuscular Hgb Conc 31.8 g/dL (32-36); Mean Corpuscular Volume 101.6 fL (80-100); RDW Standard Deviation 59.2 fL (36.4-46.3); Red Blood Count 3.06 M/uL (4.2-5.4); White Blood Count 15.45 K/uL (4.8-10.8)
[2018-08-26 05:10] LABS: INR 2.5 (0.9-1.1); Prothrombin Time 24.4 Seconds (9.0-12.0)
[2018-08-26 05:20] LABS: BUN Creatinine Ratio 30.8 (10-20); Blood Urea Nitrogen 33 mg/dl (7-18); Carbon Dioxide 28 mmol/L (21-32); Chloride 105 mmol/L (98-107); Creatinine Clr Calc Pharmacy 44.5 ml/min; Est GFR (African American) 59.4; Est GFR (Non-African American) 51.2; Glucose 165 mg/dl (70-99); Magnesium 1.8 mg/dl (1.8-2.4); Potassium 3.9 mmol/L (3.5-5.1); Sodium 139 mmol/L (136-145)
[2018-08-26 05:25] LABS: Mean Platelet Volume 8.2 fL (7.4-10.4); NT Pro B Type Natriuretic Pept 2406 pg/ml (0-900); Phosphorus 4.9 mg/dl (2.5-4.9); Platelet Count 85 K/uL (130-400); Platelet Estimate Decreased (Normal); Troponin I < 0.015 ng/ml (0-0.045)
[2018-08-26] MEDS ORDERED: OPTIRAY 320 125ml IV PRN (05:53)
[2018-08-26] MEDS: VANCOMYCIN HCL 1,000 MG in SODIUM CHLORIDE 0.9% 250 ML IV SCH ×2 (06:27→21:44)
[2018-08-26] MEDS: SODIUM CHLORIDE 0.9% 1000ML 1,000 ML IV SCH (06:32)
[2018-08-26] MEDS ORDERED: PERFLUTREN LIPID MICROSPHERE (DEFINITY) IV ONE (07:17)
--- NOTE | 2018-08-26 07:17 | CT Scan Report ---
CT ANGIOGRAPHY OF THE CHEST, PULMONARY EMBOLUS PROTOCOL CLINICAL HISTORY: Shortness of breath. COMPARISON STUDY: Chest radiograph August 07, 2018. Chest radiograph August 25, 2018. Chest CT August. TECHNIQUE: Following IV administration of 119 mL of Optiray-320, helical axial images of the chest we re obtained utilizing the pulmonary embolus protocol. Maximal intensity projections and sagittal and coronal reformats were viewed on an independent 3D workstation. IV contrast was administered withou t complication. Automated exposure control was utilized for the study. A dose lowering technique wa s utilized adhering to the principles of ALARA. FINDINGS: No pulmonary embolus is identified. Central pulmonary arteries are mildly dilated. There i s moderate cardiomegaly and coronary artery calcification. There is no thoracic aortic dissection. No pericardial effusion is noted. There is no pneumothorax or significant pleural effusion. Moderate em physema is noted. Interlobular septal thickening is noted. Moderate bilateral lower lobe airspace opa cities are noted. Additional scattered airspace opacities are noted within the lungs. Lungs are subop timally assessed given respiratory motion. IMPRESSION: 1. No pulmonary emboli identified. 2. Moderate bilateral lower lobe airspace opacities which favors pneumonia or aspiration pneumonitis. 3. Mild interstitial pulmonary edema. 4. Moderate emphysema. 5. Cardiomegaly and moderate coronary artery calcification. Electronically signed by: Shin Larose M.D. 08/26/2018 7:15 AM
--- NOTE | 2018-08-26 07:24 | CT Scan Report ---
CT OF THE ABDOMEN AND PELVIS WITH CONTRAST CLINICAL HISTORY: Abdominal pain. Drop in H&H. COMPARISON STUDY: Right thigh ultrasound August 07, 2018. TECHNIQUE: Following IV administration of 119 mL of Optiray-320, axial images of the abdomen and pelv is were obtained from the lung bases to the proximal femurs. Images were reviewed in the axial, sagit fabby, and coronal planes. IV contrast was administered without complication. Automated exposure contr ol was utilized for the study. A dose lowering technique was utilized adhering to the principles of ALARA. CT DOSE: 724.88 mGy.cm FINDINGS: Please note that the chest CT will be reported separately. Bilateral lower lobe airspace op acity favors pneumonia. The liver, spleen, adrenal glands, kidneys and pancreas are unremarkable. The re is no biliary or pancreatic ductal dilatation. No hydronephrosis or hydroureter. There is no peric holecystic infiltration. Gallbladder is at the upper limits of normal for size. There is no evidence for a bowel obstruction. There is sigmoid diverticulosis without evidence for acute diverticulitis. T here is extensive plaque within the bilateral common iliac arteries. These are suboptimally assessed on this non-CTA exam. A Cox balloon is present within the bladder which is collapsed. Small amount of fluid within the anterior medial right thigh is noted. This measures just above water attenuation. This likely corresponds to the finding on ultrasound of August 07, 2018. No pneumatosis, free air or p ortal venous gas is present. IMPRESSION: 1. No acute process within the abdomen or pelvis. 2. Small amount of fluid/infiltration within the right groin which likely corresponds to the finding shown on ultrasound of August 07, 2018 and favors a resolving hematoma. 3. Bilateral lower lobe airspace opacity which favors pneumonia. 4. Colonic diverticulosis without evidence for acute diverticulitis. Electronically signed by: Shin Larose M.D. 08/26/2018 7:23 AM
[2018-08-26] MEDS: MAGNESIUM OXIDE 400 MG TAB PO SCH (08:21)
[2018-08-26] MEDS: ASPIRIN 81 MG ECTAB PO SCH (08:21)
[2018-08-26] MEDS: MULTIVITAMIN TAB PO SCH (08:25)
[2018-08-26] MEDS ORDERED: DIVALPROEX DELAY RELEASE 500 MG TAB PO ONE (08:30)
[2018-08-26] MEDS ORDERED: DIVALPROEX EXTENDED RELEASE 500 MG TAB PO SCH (08:30)
--- NOTE | 2018-08-26 08:38 | Hospitalist Progress Note ---
Date of Service August 26, 2018 Assessment & Plan (1) Sepsis: secondary to Pneumonia (2) HCAP (healthcare-associated pneumonia): Acute Hypoxic Respiratory Distress 2/2 RML PNA with Pulmonary Edema and Pleural Effusions: Concerns for Right Middle Lobe Pneumonia On review of CXR, there does appear to be a linear infiltrative versus atelectatic change at the base of the RIGHT Middle lobe. In the setting of fever, tachycardia, and hypoxia, S/P Vanco and Levaquin in the ED patient continuing broad spectrum antibiotics of Vancomycin and Zosyn nebulizer treatments on high flow nasal cannula in the Intensive Care Unit (3) COPD (chronic obstructive pulmonary disease): Treat pneumonia nebulizer treatments IV steroids (4) Non-ischemic cardiomyopathy: -Recent history includes an EF as low as 25%, however echocardiogram from 07/31/18 demonstrating EF > 70% -Recent admission for volume overload and increase in diuretics -Holding diuretics for now due to sepsis -Hold beta-joão secondary to hypotension, resume as able -Monitor volume status closely (5) 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 No longer on steroids currently. (6) Seizures: Seizures History Due to post radiation for AVM from vasogenic edema, in the past Continue Depakote 1000 mg b.i.d (7) Vasogenic edema: Seizure Disorder: Presumed to be related to Vasogenic Edema in the past (8) DVT (deep venous thrombosis): History of chronic DVT of left lower extremity U/S of lower extremities 07/31/18: No sonographic evidence of acute occlusive deep venous thrombosis within the right or left lower extremity. Nonocclusive likely chronic thrombus at the left common femoral vein, greater saphenous junction -Anticoagulated on Coumadin, INR 2.5 -Continue Coumadin, dose according to INR 2 to 3 (9) DVT prophylaxis: -On Coumadin with therapeutic INR 2.5 Code Status: as per hospitalist discussion with patient's and on 08/26/18, they allow for intubation but no chest compressio and no cardioversion Subjective Patient seen and examined in the ICU. Patient reported that she slept at night while on high flow oxygen. Hospitalist observed that as patient took off high flow oxygen, she desaturated to the low 80s on the pulse oximetry. Patient still somewhat tight air entry on inhalation and exhalation. Her breathing does not seem labored when on high flow oxygen. Patient denies pain - no chest pain, no abdominal pain, no headache. She is awake and alert and stable mental baseline Physical Exam Vital Signs (Past 24 Hours): Last Vital Signs Temp 36.9 C 08/25/18 22:00 Pulse 88 08/26/18 07:29 Resp 18 08/26/18 07:29 BP 99/57 L 08/26/18 05:00 Pulse Ox 98 08/26/18 07:29 Constitutional: comfortable Eyes: PERRL, conjunctivae normal, anicteric sclerae EOM intact bilaterally ENMT: external ear and nose normal, oropharynx normal Neck: trachea midline, no thyromegaly Respiratory: Patient still somewhat tight air entry on inhalation and exhalation. Her breathing does not seem labored when on high flow oxygen. Cardiovascular: Rate/Rhythm: regular rate bilateral lower extremity edema Gastrointestinal (Abdomen): normal bowel sounds, soft, nontender, no hepatosplenomegaly Musculoskeletal: Head/Neck/Chest: normocephalic and head atraumatic Neurologic: PERRL, EOMI, accommodation nl, no face palsy, no dysarthria Psychiatric: A+Ox3, euthymic affect Genitourinary: meza
[2018-08-26] MEDS: DIVALPROEX DELAY RELEASE 500 MG TAB PO SCH ×2 (11:53→20:33)
[2018-08-26] MEDS: ALBUMIN 25% 50 ML IV SCH ×2 (12:12→17:32)
--- NOTE | 2018-08-26 12:54 | Critical Care Progress Note ---
Date of Service August 26, 2018 Assessment & Plan (1) HCAP (healthcare-associated pneumonia): Impression: 1. COPD, mild exacerbation. Gold level 3. O2 at home at 3 L/min. 2. Diastolic heart failure. 3. Healthcare acquired pneumonia bilaterally left greater than right. 4. Fluid overload. 5. Chronic hypoxic respiratory failure. 6. History of AVM, complicated by seizure after brain radiation. Plan: 1. Continue Lasix and albumin every 6 hours for 1 day. 2. Continue Zosyn and vancomycin. 3. Solu-Medrol 40 mg IV changed to every 12 hours. In the morning changed to prednisone 60 mg p.o. daily for 7 days then stop it. No need for taper. 4. GI and DVT prophylaxis. Patient is already on Coumadin. 5. Continue bronchodilators. 6. Watch for the platelets as is still dropping. 7. Continue Coumadin. 8. Potential transfer to the regular floor, will discuss with the hospitalist service. Thank you, critical care time spent with the patient was 35 minutes. Subjective The patient feeling better, she is off the high flow oxygen, she is now back to 6 L oxygen O2 saturation has been maintained. She denies any chest pain, she does have significant swelling in her lower extremities. Physical Exam Vital Signs (Past 24 Hours): Last Vital Signs Temp 36.5 C 08/26/18 08:01 Pulse 95 H 08/26/18 12:22 Resp 15 08/26/18 12:22 BP 92/53 L 08/26/18 12:22 Pulse Ox 91 08/26/18 12:22 Physical Exam: Vital signs are stable, no fever, O2 saturation is variable but 90% on 6 L. Small lymph node palpable at the right side of the neck. S1-S2 regular rate and rhythm. Mild rhonchi, I did not appreciate significant wh eezing. Abdomen is benign, 3+ edema in the periphery. Neurologically she is intact. Results & Data Laboratory Results Labs were reviewed personally. Leukocytosis secondary to steroids. INR is 2.5. Diagnostic Findings In review of her imaging, CAT scan of the chest today showed pulmonary vascular congestion, bilateral infiltrates, COPD with hyperinflated lungs.
[2018-08-26] MEDS: FUROSEMIDE 40 MG in SYRINGE 0 ML IV SCH ×2 (14:52→19:44)
[2018-08-26] MEDS: WARFARIN SOD 5 MG TAB PO SCH (16:30)
[2018-08-26] MEDS ORDERED: VANCOMYCIN TROUGH ONE (19:30)
[2018-08-27] MEDS: ALBUMIN 25% 50 ML IV SCH ×2 (00:02→05:38)
[2018-08-27] MEDS: methylPREDNISolone 40 MG in SYRINGE 0 ML IV SCH ×2 (01:30→08:09)
[2018-08-27] MEDS: PIPERACILLIN/TAZOBACTAM 4.5 GM in DEXTROSE 5% 100 ML IV SCH ×3 (01:30→17:39)
[2018-08-27] MEDS: FUROSEMIDE 40 MG in SYRINGE 0 ML IV SCH ×2 (01:30→08:09)
[2018-08-27] MEDS: IPRATROPIUM BROMIDE NEB SOLN 0.02% 2.5 ML VIAL INH SCH ×4 (02:00→19:36)
[2018-08-27] MEDS: LEVALBUTEROL HCL 0.63 MG/3 ML NEB NEB SCH ×4 (02:00→19:35)
[2018-08-27] MEDS: DIVALPROEX DELAY RELEASE 500 MG TAB PO SCH ×2 (08:08→21:00)
[2018-08-27] MEDS: MAGNESIUM OXIDE 400 MG TAB PO SCH (08:09)
[2018-08-27] MEDS: ASPIRIN 81 MG ECTAB PO SCH (08:09)
[2018-08-27] MEDS: MULTIVITAMIN TAB PO SCH (08:09)
[2018-08-27 08:21] LABS: Creatinine Clr Calc Pharmacy 54.2 ml/min; Est GFR (Non-African American) 64.7
[2018-08-27] MEDS: VANCOMYCIN HCL 1,000 MG in SODIUM CHLORIDE 0.9% 250 ML IV SCH ×2 (08:58→23:15)
[2018-08-27] MEDS ORDERED: VANCOMYCIN TROUGH ONE (09:30)
[2018-08-27] MEDS ORDERED: DiphenhydrAMINE HCL 50 MG/ML VIAL IV STA (09:59)
[2018-08-27] MEDS ORDERED: DiphenhydrAMINE HCL 50 MG/ML VIAL ONE (10:01)
--- NOTE | 2018-08-27 10:25 | Hospitalist Progress Note ---
Date of Service August 27, 2018 Assessment & Plan (1) Sepsis: admitted to ICU on 08/25/18 for sepsis secondary to presumed Hospital acquired Pneumonia In the setting of fever, tachycardia, and hypoxia and CXR findings and recent hospitalizations Right Middle Lobe Pneumonia: admission CXR on 08/25/18 there does appear to be a linear infiltrative versus atelectatic change at the base of the RIGHT Middle lobe; trace bilateral pleural effusions S/P Vanco and Levaquin in the ED -Chest CTA 08/26/18: Moderate bilateral lower lobe airspace opacities which favors pneumonia or aspiration pneumonitis. Mild interstitial pulmonary edema. no thoracic aortic dissection. No pericardial effusion is noted. There is no pneumothorax or significant pleural effusion. Moderate emphysema is noted -has been on broad spectrum antibiotic of Vancomycin and Zosyn -the admission blood culture from 08/25/18 has not identified for growth to date; urine culture is negative -patient is MRSA positive and it is unclear with the lack of confirming blood culture whether patient has a MRSA pneumonia or not -will continue Vancomycin and Zosyn because of clinical improvements to date (2) HCAP (healthcare-associated pneumonia): Acute Hypoxic Respiratory Distress secondary to pneumonia as described above (3) COPD (chronic obstructive pulmonary disease): Treat pneumonia nebulizer treatments IV steroids being transitioned to oral prednisone starting on 08/27/18 Acute on Chronic Respiratory Failure with hypoxia oxygen requirements decreased from admission to 3 to 4 liters/min (4) Non-ischemic cardiomyopathy: Patient in the past had Ejection Fraction as low as 25%, echocardiogram from 07/31/18 demonstrating EF greater than 70% repeat echocardigram on 08/25/18 is unchanged with EF greater than 70% Volume Overload has been considered in last 2018 admission to be non cardiogenic given normal ejection fraction Patient has Hypoalbuminemia and perhaps because of illness she has been prone to get edema of bilateral lower extremities was given IV Lasix and IV albumin when in the ICU will plan on resuming oral Lasix on 08/28/18 if blood pressure tolerates give BOOST supplements with meals to increase protein intake to increase serum albumin (5) AVM (arteriovenous malformation) brain: AVM (arteriovenous malformation) brain: Incidental diagnosis in January 2018 Status post radiation seizure from vasogenic edema and treated with steroids. No longer on steroids currently. (6) Seizures: Seizures History Due to post radiation for AVM from vasogenic edema in the past Continue Depakote 1000 mg b.i.d Patient does not currently have vasogenic edema at this time as she does not have any neurological deficits on this hospital presentation (7) DVT (deep venous thrombosis): History of chronic DVT of left lower extremity U/S of lower extremities 07/31/18: No sonographic evidence of acute occlusive deep venous thrombosis within the right or left lower extremity. Nonocclusive likely chronic thrombus at the left common femoral vein, greater saphenous junction -Anticoagulated on Coumadin, INR 2.5 as of 08/26/18 -Continue Coumadin, dose according to INR 2 to 3 (8) DVT prophylaxis: -On Coumadin with therapeutic INR Code Status: as per hospitalist discussion with patient's and on 08/26/18, they allow for intubation but no chest compression and no cardioversion [phone] Subjective Patient on telemetry andersen. On 3 liters/min nasal cannula. Breathing without distress. Crackles on lung exam. patient speaks in full sentences. denies acute pain. denies lightheadedness. no vomiting. Patient appears to have mild rash. will slow down the rate of vancomycin. will give benadryl Physical Exam Vital Signs (Past 24 Hours): Last Vital Signs Temp 36.4 C L 08/27/18 07:59 Pulse 64 08/27/18 08:00 Resp 18 08/27/18 07:59 BP 118/69 08/27/18 07:59 Pulse Ox 87 L 08/27/18 08:00 Constitutional: comfortable Eyes: PERRL, conjunctivae normal, anicteric sclerae EOM intact bilaterally ENMT: external ear and nose normal, oropharynx normal Neck: trachea midline, no thyromegaly Respiratory: normal respiratory effort Auscultation: + crackles Cardiovascular: Rate/Rhythm: regular rate Gastrointestinal (Abdomen): normal bowel sounds, soft, nontender, no hepatosplenomegaly Musculoskeletal: Head/Neck/Chest: normocephalic and head atraumatic Neurologic: PERRL, EOMI, accommodation nl, no face palsy, no dysarthria Psychiatric: A+Ox3, euthymic affect
[2018-08-27] MEDS: predniSONE 20 MG TAB PO SCH (11:17)
--- NOTE | 2018-08-27 14:07 | Pharmacy Report ---
Pharmacy Abx Dose Short Note - Date of Service August 27, 2018 - Assessment & Plan Assessment 73 year old F receiving VANCOMYCIN/ZOSYN for treatment of hap Day # 3 of antimicrobial therapy. Plan Vancomycin * Trough level of 16.3 mcg/mL is therapeutic, however, drawn prior to steady state * Continue dose of 1000 mg q14H- new trough at steady state * Goal trough level 15-20 mcg/mL * Trough ordered for 08/28 @ 1330 Pharmacy will continue to follow and will adjust dose/frequency as necessary. Thank you.
--- NOTE | 2018-08-27 15:08 | Progress Note ---
DATE: 08/27/2018 TIME: 2:10 p.m. SUBJECTIVE: The patient is feeling much better. Her cough has diminished significantly. She is not bringing up any phlegm. She is not short of breath. She is still complaining of severe edema. OBJECTIVE: GENERAL: The patient appeared comfortable. She was in no distress. Weight is 75.1 kg. This reflects a 0.7 kg increase compared with 1 day earlier. She did not cough during exam. HEART: Heart rate 92 per minute. Rhythm regular. Blood pressure 101/59. LUNGS: Lung solano revealed scattered rales and rhonchi posteriorly bilaterally. No accessory muscle use. Saturation 92% on 2 liters. ABDOMEN: Soft and nontender. EXTREMITIES: Reveals +3 edema of both lower extremities. For the prior 24 hours, intake 2040 and output 2650. DIAGNOSTIC DATA: CT angio of the chest was reviewed from yesterday. No evidence of pulmonary emboli. Bilateral lower lobe infiltrates are seen suggesting pneumonia. The patient denies any history at all of aspiration. Emphysema was noted. LABORATORY DATA: White count yesterday was 15.45. There was not a CBC for today. Platelets yesterday 85,000. Prior platelet counts were above 114,000. Creatinine today was 0.89. Urine culture and blood cultures have been negative. Echocardiogram done today showed ejection fraction above 70%. Right ventricular systolic function was normal. IMPRESSION: 1. Pneumonia bilaterally ? healthcare associated. 2. Chronic obstructive pulmonary disease exacerbation. 3. Diastolic CHF. 4. Decreased platelet count. COMMENTS AND RECOMMENDATIONS: Clinically, the patient is improved. She is on Zosyn and vancomycin. She is on q. 6 hours neb treatments with levalbuterol and ipratropium. She is on warfarin. Currently, she is getting prednisone 60 mg daily. I believe she should have a CBC repeated tomorrow. It is unclear as to the reason for her significant edema.
[2018-08-27] MEDS: INCRUSE ELLIPTA 62.5 MCG INH SCH (15:20)
[2018-08-27] MEDS: WARFARIN SOD 5 MG TAB PO SCH (15:21)
[2018-08-27] MEDS: FLUTICASONE/VILANTEROL INHALER INH SCH (15:21)
[2018-08-28] MEDS: IPRATROPIUM BROMIDE NEB SOLN 0.02% 2.5 ML VIAL INH SCH ×4 (01:59→19:31)
[2018-08-28] MEDS: LEVALBUTEROL HCL 0.63 MG/3 ML NEB NEB SCH ×4 (01:59→19:31)
[2018-08-28] MEDS: PIPERACILLIN/TAZOBACTAM 4.5 GM in DEXTROSE 5% 100 ML IV SCH ×3 (03:10→17:17)
[2018-08-28 06:14] LABS: Basophils # (auto) 0.01 K/uL (0-0.2); Basophils % (auto) 0.1 %; Eosinophils # (auto) 0.01 K/uL (0-0.5); Eosinophils % (auto) 0.1 %; Hematocrit (blood only) 33.1 % (37-47); Hemoglobin 10.4 g/dL (12.0-16.0); Immature Granulocytes # (auto) 0.09 K/uL (0.00-0.02); Immature Granulocytes % (auto) 0.7 %; Lymphocytes # (auto) 1.35 K/uL (1.2-3.4); Lymphocytes % (auto) 11.1 %; Mean Corpuscular Hgb Conc 31.4 g/dL (32-36); Mean Corpuscular Volume 102.8 fL (80-100); Mean Platelet Volume 8.9 fL (7.4-10.4); Monocytes # (auto) 0.96 K/uL (0.11-0.59); Monocytes % (auto) 7.9 %; Neutrophils # (auto) 9.76 K/uL (1.4-6.5); Neutrophils % (auto) 80.1 %; Platelet Count 123 K/uL (130-400); RDW Coefficient of Variation 15.4 % (11.5-14.5); Red Blood Count 3.22 M/uL (4.2-5.4); White Blood Count 12.18 K/uL (4.8-10.8)
[2018-08-28 06:51] LABS: Albumin Globulin Ratio 0.9 (0.9-2); Albumin Level 2.7 gm/dl (3.4-5.0); BUN Creatinine Ratio 39.4 (10-20); Bilirubin,Total 0.4 mg/dl (0.2-1); Calcium 8.5 mg/dl (8.5-10.1); Est GFR (African American) 73.1; Potassium 2.5 mmol/L (3.5-5.1); Total Protein 5.7 gm/dl (6.4-8.2)
[2018-08-28 06:57] LABS: INR 3.6 (0.9-1.1)
[2018-08-28] MEDS: DIVALPROEX DELAY RELEASE 500 MG TAB PO SCH ×2 (07:29→19:31)
[2018-08-28] MEDS ORDERED: POTASSIUM CHLORIDE 20 MEQ TABCR PO ONE (07:45)
[2018-08-28] MEDS: MAGNESIUM OXIDE 400 MG TAB PO SCH (07:49)
[2018-08-28] MEDS: MULTIVITAMIN TAB PO SCH (07:49)
[2018-08-28] MEDS: ASPIRIN 81 MG ECTAB PO SCH (07:50)
[2018-08-28] MEDS: FLUTICASONE/VILANTEROL INHALER INH SCH (07:50)
[2018-08-28] MEDS: predniSONE 20 MG TAB PO SCH (07:50)
[2018-08-28] MEDS: INCRUSE ELLIPTA 62.5 MCG INH SCH (07:50)
[2018-08-28] MEDS: POTASSIUM CHLORIDE / WTR 10 MEQ/100 ML PLCT IV SCH ×2 (07:51→10:59)
[2018-08-28] MEDS ORDERED: FUROSEMIDE 40 MG TAB PO SCH (09:00)
--- NOTE | 2018-08-28 09:51 | Hospitalist Progress Note ---
Date of Service August 28, 2018 Assessment & Plan (1) Sepsis: (2) HCAP (healthcare-associated pneumonia): Admitted to ICU on 08/25/18 for sepsis secondary to presumed Hospital acquired Pneumonia In the setting of fever, tachycardia, and hypoxia and CXR findings and recent hospitalizations -[facility]: admission CXR on 08/25/18 there does appear to be a linear infiltrative versus atelectatic change at the base of the RIGHT Middle lobe; trace bilateral pleural effusions -Chest CTA 08/26/18: Moderate bilateral lower lobe airspace opacities which favors pneumonia or aspiration pneumonitis. Mild interstitial pulmonary edema. no thoracic aortic dissection -Patient is MRSA positive and it is unclear with the lack of confirming blood culture whether patient has a MRSA pneumonia or not -No growth on blood or urine cultures from 08/25/18. Continue broad spectrum antibiotics of Vancomycin and Zosyn -Clinically improving. Leukocytosis decreased to 12k (15k yesterday) -Still with acute hypoxic respiratory distress 2/2 pneumonia as described above -Repeat CXR in AM (3) COPD (chronic obstructive pulmonary disease): Continue nebulizer treatments, 60mg daily PO prednisone, wean oxygen as tolerated (4) Hypokalemia: Potassium of 2.5 this morning in setting of increased diuretic use -Replaced K, will recheck this afternoon. Also checking Mag (5) Non-ischemic cardiomyopathy: Patient in the past had Ejection Fraction as low as 25%, echocardiogram from 07/31/18 demonstrating EF greater than 70% -Repeat echocardigram on 08/25/18 is unchanged with EF greater than 70% -Has hypoalbuminemia and perhaps because of illness she has been prone to get edema of bilateral lower extremities -Was given IV Lasix and IV albumin when in the ICU. Will hold lasix for now do to hypokalemia (6) AVM (arteriovenous malformation) brain: AVM (arteriovenous malformation) brain: incidental diagnosis in January 2018 -S/p seizure from vasogenic edema and treated with steroids. -No longer on steroids currently (7) Seizures: Seizures History. Due to post radiation for AVM from vasogenic edema in the past -Continue Depakote 1000 mg b.i.d -Does not currently have vasogenic edema at this time as she does not have any neurological deficits on this hospital presentation (8) DVT (deep venous thrombosis): History of chronic DVT of left lower extremity -U/S of lower extremities 2/26/19: No sonographic evidence of acute occlusive deep venous thrombosis within the right or left lower extremity. Non-occlusive likely chronic thrombus at the left common femoral vein, greater saphenous junction -Anticoagulated on Coumadin, supratherapeutic INR of 3.6 today. Hold coumadin Code Status: as per hospitalist discussion with patient's and on 08/26/18, they allow for intubation but no chest compression and no cardioversion [phone] Supervising Physician Co-Signing Physician Notes I have seen and examined the patient and agree with the assessment and plan as above as described by physician electrician station assistant and would like to comment that patient continues to get vancomycin and Zosyn for pneumonia and clinically improving in the context of acute respiratory failure as her oxygen requirements have continue to decrease to 2 liters/min. Will get CXR on 08/29/18 and that point should decide whether patient can do antibiotic de-escalation. Currently issues at this time includes hypomagnesemia and hypokalemia from previous diuretic use for bilateral leg edema. Will hold Lasix today. will check in serum potassium and serum magnesium levels again as patient had received IV and oral supplements for potassium and magnesium. Subjective Patient seen and examined while sitting in bedside chair. Feeling well today. Appetite is improving. Oxygen saturation at 98% on 2L NC. Denies fever, chills, cough, chest pain, shortness of breath, nausea, vomiting, SOB, dysuria, diarrhea or constipation. Physical Exam Vital Signs (Past 24 Hours): Last Vital Signs Temp 36.4 C L 08/28/18 07:37 Pulse 71 08/28/18 08:00 Resp 18 08/28/18 07:37 BP 138/73 08/28/18 07:37 Pulse Ox 98 08/28/18 08:00 Physical Exam: General Appearance: WD/WN, no apparent distress, resting well in bedside chair Head: normocephalic, atraumatic Eyes: normal inspection, PERRL, EOMI ENT: hearing grossly normal, pharynx normal (moist mucous membranes) Neck: supple, no JVD, no adenopathy Respiratory/Chest: Bibasilar crackles. No wheezes or rhonci. No respiratory distress or accessory muscle use Cardiovascular: regular rate, rhythm, no murmur, normal peripheral pulses, 2+ BLE pitting edema Abdomen/GI: normal bowel sounds, soft, non-tender to palpation Extremities/Musculoskelatal: normal inspection, no calf tenderness, normal capillary refill, no pedal edema Neurologic/Psych: alert, normal mood/affect, oriented x 3 Skin: normal color, warm/dry Results & Data Laboratory Results Short CBC 08/28/18 Range/Units 05:26 WBC 12.18 H (4.8-10.8) K/uL Hgb 10.4 L (12.0-16.0) g/dL Hct 33.1 L (37-47) % Plt Count 123 L (130-400) K/uL BMP 08/28/18 05:26 Sodium 142 Potassium 2.5 L* Chloride 105 Carbon Dioxide 30 BUN 36 H Creatinine 0.91 Glucose 86 Calcium 8.5 Liver Function 08/28/18 Range/Units 05:26 Total Bilirubin 0.4 (0.2-1) mg/dl AST 11 L (15-37) U/L ALT 10 L (12-78) U/L Alkaline Phosphatase 49 (45-117) U/L Albumin 2.7 L (3.4-5.0) gm/dl
--- NOTE | 2018-08-28 09:57 | Progress Note ---
DATE: 08/28/2018 PULMONARY PROGRESS NOTE TIME: 9:25 a.m. SUBJECTIVE: The patient is overall feeling pretty well. She ambulated to the other side of the room with the assistance of therapy. Her saturations did drop into the 80s, but her oxygen had been taken off. She denies any cough or sputum production. Her appetite has improved. She feels that her energy level is improved. She was quite stable walking. This was with a walker. OBJECTIVE: GENERAL: The patient appears comfortable at rest. VITAL SIGNS: Temperature 36.4. The last fever was almost 3 days ago. Heart rate is 92 per minute. Rhythm is regular. Blood pressure 138/73. LUNGS: Lung solano revealed rales in both the right and left lower lung solano posteriorly. Respiratory rate 18. Saturation was 96% on 2 liters at the time of my exam. EXTREMITIES: Show persistence of approximately +2 edema bilaterally. LABORATORY DATA: White count today is 12.18. Two days ago, it was 15.45. Hemoglobin 10.4. Platelets 123,000. This has increased from 85,000 2 days ago. INR today is elevated at 3.6. Electrolytes show sodium 142, potassium 2.5, chloride 105, bicarbonate 30. BUN is 36 with a creatinine of 0.91. Total protein is 5.7 with albumin 2.7. IMPRESSION: 1. Bilateral pneumonia - possibly healthcare associated. 2. Chronic obstructive pulmonary disease exacerbation. 3. Diastolic congestive heart failure. 4. Decreased platelet count - improved. Case was discussed with Dr. Shannon. She is clinically improving. She is still on Zosyn and vancomycin. Cultures have been negative from blood. No significant sputum was able to be collected. I think it is unlikely this is a staph infection in the lungs, although the nasal swab was positive. Would likely discontinue the vancomycin after another day or two. Zosyn would seem to be appropriate and as she improves, can be changed to Augmentin. The patient is on prednisone [address] Hodgson had suggested no taper, but with the elevation of BUN, I would prefer to cut the prednisone back to 40 mg per day for now. She certainly does not seem to have any significant bronchospasm.
[2018-08-28] MEDS ORDERED: VANCOMYCIN TROUGH ONE (13:30)
[2018-08-28] MEDS: VANCOMYCIN HCL 1,000 MG in SODIUM CHLORIDE 0.9% 250 ML IV SCH (14:17)
[2018-08-28 14:41] LABS: BUN Creatinine Ratio 43.3 (10-20); Calcium 8.6 mg/dl (8.5-10.1); Creatinine Clr Calc Pharmacy 52.9 ml/min; Est GFR (African American) 73.1; Potassium 3.5 mmol/L (3.5-5.1); Prothrombin Time 33.8 Seconds (9.0-12.0)
[2018-08-28 14:47] LABS: INR 3.6 (0.9-1.1)
--- NOTE | 2018-08-28 15:24 | Pharmacy Report ---
Pharmacy Abx Dose Short Note - Date of Service August 28, 2018 - Assessment & Plan Assessment 73 year old F receiving IV Vancomycin for treatment of HAP Day # 4 of antimicrobial therapy. Plan Vancomycin * Trough level of 17.5 mcg/mL (appropriately drawn) is therapeutic - reflective of steady state, remains at goal * Continue dose of 1000 mg IV every 14 hours * Goal trough level for pneumonia : 15 to 20 mcg/mL * Do not plan on rechecking level unless renal function significantly changes as doubt patient will become sub/supratherapeutic on current regimen Pharmacy will continue to follow and will adjust dose/frequency as necessary. Thank you.
[2018-08-28] MEDS ORDERED: POTASSIUM CHLORIDE 20 MEQ TABCR PO STA (15:45)
[2018-08-29] MEDS: PIPERACILLIN/TAZOBACTAM 4.5 GM in DEXTROSE 5% 100 ML IV SCH ×2 (01:31→10:19)
[2018-08-29] MEDS: IPRATROPIUM BROMIDE NEB SOLN 0.02% 2.5 ML VIAL INH SCH ×5 (02:09→19:13)
[2018-08-29] MEDS: LEVALBUTEROL HCL 0.63 MG/3 ML NEB NEB SCH ×5 (02:09→19:13)
[2018-08-29] MEDS: VANCOMYCIN HCL 1,000 MG in SODIUM CHLORIDE 0.9% 250 ML IV SCH (03:52)
[2018-08-29 07:33] LABS: INR 1.9 (0.9-1.1); Prothrombin Time 18.7 Seconds (9.0-12.0)
[2018-08-29 08:13] LABS: Calcium 8.9 mg/dl (8.5-10.1); Creatinine Clr Calc Pharmacy 65.9 ml/min; Est GFR (African American) 95.4; Est GFR (Non-African American) 82.3; Potassium 3.5 mmol/L (3.5-5.1)
[2018-08-29] MEDS: DIVALPROEX DELAY RELEASE 500 MG TAB PO SCH ×2 (08:21→20:20)
--- NOTE | 2018-08-29 09:17 | Hospitalist Progress Note ---
Date of Service August 29, 2018 Assessment & Plan (1) Sepsis: (2) HCAP (healthcare-associated pneumonia): Admitted to ICU on 08/25/18 for sepsis secondary to presumed hospital acquired pneumonia in the setting of fever, tachycardia, and hypoxia and CXR findings and recent hospitalizations -[facility]: admission CXR on 08/25/18 there does appear to be a linear infiltrative versus atelectatic change at the base of the RIGHT Middle lobe; trace bilateral pleural effusions -Chest CTA 08/26/18: Moderate bilateral lower lobe airspace opacities which favors pneumonia or aspiration pneumonitis. Mild interstitial pulmonary edema. no thoracic aortic dissection -Patient is MRSA positive and it is unclear with the lack of confirming blood culture whether patient has a MRSA pneumonia or not -No growth on blood or urine cultures from 08/25/18. Continue broad spectrum antibiotics of Vancomycin and Zosyn -Clinically improving but still with acute hypoxic respiratory distress 2/2 pneumonia as described above -Repeat CXR in AM pending, 2-step pending (3) COPD (chronic obstructive pulmonary disease): Continue nebulizer treatments, 60mg daily PO prednisone, wean oxygen as tolerated (4) Hypokalemia: Potassium back to normal range, magnesium level normal -Will plan to increase home KCl supplementation upon discharge (5) Non-ischemic cardiomyopathy: Patient in the past had Ejection Fraction as low as 25%, echocardiogram from 07/31/18 demonstrating EF greater than 70% -Repeat echocardigram on 08/25/18 is unchanged with EF greater than 70% -Lasix held yesterday due to hypokalemia. Plan on resuming today (6) AVM (arteriovenous malformation) brain: AVM (arteriovenous malformation) brain: incidental diagnosis in January 2018 -S/p seizure from vasogenic edema and treated with steroids. -No longer on steroids currently (7) Seizures: Seizures History. Due to post radiation for AVM from vasogenic edema in the past -Continue Depakote 1000 mg b.i.d -Does not currently have vasogenic edema at this time as she does not have any neurological deficits on this hospital presentation (8) DVT (deep venous thrombosis): History of chronic DVT of left lower extremity -U/S of lower extremities 07/31/18: No sonographic evidence of acute occlusive deep venous thrombosis within the right or left lower extremity. Non-occlusive likely chronic thrombus at the left common femoral vein, greater saphenous junction -Anticoagulated on Coumadin, will resume coumadin today Patient seen in collaboration with Dr. Morales. Please see addendum. Supervising Physician Co-Signing Physician Notes Pt was seen and examined. Agreed with [facility] exam, assessment and plan. Pt said that she feels much better. she said that her breathing improves. Currently denies any chest pain. She had a few seconds of VT that was seen on monitor today. Repeat CXR done today showed improving basilar infiltrative change and improving right midlung infiltrative change. Blood cx negative. Currently on IV Vanco and Zosyn. Will de-escalate abx to Doxycycline and Rocephin. Continue oxygen supplement and Duoneb treatment. Pulmonology on board. Will restart her lasix. Since pt had a burst of Vtach, will replace potassium. Continue monitor closely in tele. MD Carmen Subjective Patient seen and examined while sitting in bedside chair. Feeling well today. Appetite is improving. Oxygen saturation at 96% on 3L NC. Endorsing some chest tightness and difficulty moving air. Denies chest pain or SOB at rest. Denies fever, chills, cough, nausea, vomiting, SOB, dysuria, diarrhea or constipation. Physical Exam Vital Signs (Past 24 Hours): Last Vital Signs Temp 36.8 C 08/29/18 08:53 Pulse 95 H 08/29/18 08:53 Resp 20 08/29/18 08:53 BP 121/79 08/29/18 08:53 Pulse Ox 96 08/29/18 08:53 Physical Exam: General Appearance: WD/WN, no apparent distress, resting comfortably in bedside chair Head: normocephalic, atraumatic Eyes: normal inspection, PERRL, EOMI ENT: hearing grossly normal, pharynx normal (moist mucous membranes) Neck: supple, no JVD, no adenopathy Respiratory/Chest: Bibasilar crackles. No wheezing or rhonchi noted. No respiratory distress or accessory muscle use Cardiovascular: regular rate, rhythm, no murmur, normal peripheral pulses, 2+ BLE edema Abdomen/GI: normal bowel sounds, soft, non-tender to palpation Extremities/Musculoskelatal: normal inspection, no calf tenderness, normal capillary refill, no pedal edema Neurologic/Psych: alert, normal mood/affect, oriented x 3 Skin: normal color, warm/dry Results & Data Laboratory Results [facility] 08/28/18 08/29/18 13:42 07:03 Sodium 141 141 Potassium 3.5 D 3.5 Chloride 106 107 Carbon Dioxide 27 29 BUN 40 H 36 H Creatinine 0.91 0.73 Glucose 129 H 51 L* Calcium 8.6 8.9
[2018-08-29] MEDS: FLUTICASONE/VILANTEROL INHALER INH SCH (10:14)
[2018-08-29] MEDS: ASPIRIN 81 MG ECTAB PO SCH (10:15)
[2018-08-29] MEDS: MAGNESIUM OXIDE 400 MG TAB PO SCH (10:15)
[2018-08-29] MEDS: MULTIVITAMIN TAB PO SCH (10:16)
[2018-08-29] MEDS: INCRUSE ELLIPTA 62.5 MCG INH SCH (10:17)
[2018-08-29] MEDS: predniSONE 20 MG TAB PO SCH (10:18)
--- NOTE | 2018-08-29 12:25 | Progress Note ---
DATE: 08/29/2018 PULMONARY PROGRESS NOTE TIME: 11:45 a.m. SUBJECTIVE: The patient does complain of mild chest tightness today. She denied radiation to her neck or her shoulders. This is different than what she has experienced previously. She also had a run of V-tach this morning when doing physical therapy. She is not coughing much. She does not exactly complain of shortness of breath. She did relate that she tried to turn last night a little bit on her right side. She states since July, she has not been able to sleep except in an upright position. OBJECTIVE: GENERAL: The patient looked comfortable at rest. Weight today is 74.6 kg. HEART: Current heart rate is 93 per minute. Rhythm is regular. Blood pressure 102/71. LUNGS: Lung solano reveal rales on the left. Right lung was fairly clear. Respiratory rate 18, saturation 98% on 3 liter nasal cannula. EXTREMITIES: Show +2 edema, which is unchanged. LABORATORIES: Electrolytes show sodium 141, potassium 3.5, chloride 107, bicarbonate 29. The patient was ordered a chest x-ray, but it has not been done yet apparently. IMPRESSION: 1. Bilateral pneumonia -- possible healthcare associated. 2. Chronic obstructive pulmonary disease with exacerbation. 3. Diastolic congestive heart failure. 4. Chest tightness -- new complaint today. COMMENTS: The patient seems relatively stable from a respiratory perspective. I am awaiting today's chest x-ray. She did have a run of V-tach this morning. It is unclear if this may be related to her chest tightness or not. On exam, she does not sound tight to any significant degree. I would continue with her current medications.
--- NOTE | 2018-08-29 16:02 | XRay Report ---
XR chest 1V portable CLINICAL HISTORY: MD medina dyspnea COMPARISON STUDY: 08/25/2018 FINDINGS: Improving aeration of the lung bases. Improving infiltrative change right midlung. Lungs ot herwise appear clear. Diaphragms are smooth. IMPRESSION: Improving basilar infiltrative change. Improving right midlung infiltrative change. The above report was generated using voice recognition software. It may contain grammatical, syntax or spelling errors. Electronically signed by: Immanuel Fernández M.D. 08/29/2018 4:00 PM
[2018-08-29] MEDS: WARFARIN SOD 5 MG TAB PO SCH (17:00)
[2018-08-29] MEDS ORDERED: POTASSIUM CHLORIDE 10 MEQ TABCR PO SCH (17:45)
[2018-08-29] MEDS: FUROSEMIDE 40 MG TAB PO SCH (18:28)
[2018-08-29] MEDS ORDERED: cefTRIAXone SODIUM 1,000 MG in DEXTROSE 5% 50 ML IV SCH (19:00)
[2018-08-29] MEDS: DOXYCYCLINE HYCLATE 100 MG CAP PO SCH (20:21)
[2018-08-30] MEDS: LEVALBUTEROL HCL 0.63 MG/3 ML NEB NEB SCH ×3 (01:38→14:07)
[2018-08-30] MEDS: IPRATROPIUM BROMIDE NEB SOLN 0.02% 2.5 ML VIAL INH SCH ×3 (01:38→14:07)
[2018-08-30 06:44] LABS: Hematocrit (blood only) 30.8 % (37-47); Hemoglobin 9.7 g/dL (12.0-16.0); Mean Corpuscular Hgb Conc 31.5 g/dL (32-36); Mean Corpuscular Volume 102.7 fL (80-100); Mean Platelet Volume 8.4 fL (7.4-10.4); Platelet Count 143 K/uL (130-400); RDW Coefficient of Variation 14.9 % (11.5-14.5); RDW Standard Deviation 55.3 fL (36.4-46.3); White Blood Count 8.69 K/uL (4.8-10.8)
[2018-08-30 07:21] LABS: BUN Creatinine Ratio 50.4 (10-20); Calcium 8.6 mg/dl (8.5-10.1); Creatinine Clr Calc Pharmacy 72.4 ml/min; Est GFR (African American) 101.3; Est GFR (Non-African American) 87.4; Potassium 4.2 mmol/L (3.5-5.1)
[2018-08-30] MEDS: DIVALPROEX DELAY RELEASE 500 MG TAB PO SCH (08:23)
[2018-08-30] MEDS: DOXYCYCLINE HYCLATE 100 MG CAP PO SCH (08:24)
[2018-08-30] MEDS: INCRUSE ELLIPTA 62.5 MCG INH SCH (08:24)
[2018-08-30] MEDS: MULTIVITAMIN TAB PO SCH (08:24)
[2018-08-30] MEDS: ASPIRIN 81 MG ECTAB PO SCH (08:24)
[2018-08-30] MEDS: predniSONE 20 MG TAB PO SCH (08:24)
[2018-08-30] MEDS: FLUTICASONE/VILANTEROL INHALER INH SCH (08:25)
[2018-08-30] MEDS: FUROSEMIDE 40 MG TAB PO SCH ×2 (08:25→16:19)
[2018-08-30] MEDS: MAGNESIUM OXIDE 400 MG TAB PO SCH (08:25)
[2018-08-30 08:53] LABS: INR 1.2 (0.9-1.1); Prothrombin Time 12.4 Seconds (9.0-12.0)
--- NOTE | 2018-08-30 10:51 | Hospitalist Progress Note ---
Date of Service August 30, 2018 Assessment & Plan (1) HCAP (healthcare-associated pneumonia): Admitted to ICU on 08/25/18 for sepsis secondary to presumed hospital acquired pneumonia in the setting of fever, tachycardia, and hypoxia and CXR findings and recent hospitalizations -[facility]: admission CXR on 08/25/18 there does appear to be a linear infiltrative versus atelectatic change at the base of the RIGHT Middle lobe; trace bilateral pleural effusions -Chest CTA 08/26/18: Moderate bilateral lower lobe airspace opacities which favors pneumonia or aspiration pneumonitis. Mild interstitial pulmonary edema. no thoracic aortic dissection -Repeat CXR 08/29/18 with improving basilar infiltrative change and improving right midlung infiltrative change -No growth on blood or urine cultures. Clinically improving. De-escalated Vancomycin and Zosyn to doxycycline and rocephin -Clinically improving but has mild hypoxic respiratory failure 2/2 pneumonia as described above -2-step pending prior to discharge (2) COPD (chronic obstructive pulmonary disease): Continue nebulizer treatments, 40mg daily PO prednisone (3) Hypokalemia: Potassium back to normal range, magnesium level normal -Will plan to increase home KCl supplementation upon discharge (4) Non-ischemic cardiomyopathy: Patient in the past had Ejection Fraction as low as 25%, echocardiogram from 07/31/18 demonstrating EF greater than 70% -Repeat echocardigram on 08/25/18 is unchanged with EF greater than 70% -Continue home dose Lasix 40mg BID (5) AVM (arteriovenous malformation) brain: AVM (arteriovenous malformation) brain: incidental diagnosis in January 2018 -S/p seizure from vasogenic edema and treated with steroids. -No longer on steroids currently (6) Seizures: Seizures History. Due to post radiation for AVM from vasogenic edema in the past -Continue Depakote 1000 mg b.i.d -Does not currently have vasogenic edema at this time as she does not have any neurological deficits on this hospital presentation (7) DVT (deep venous thrombosis): History of chronic DVT of left lower extremity -U/S of lower extremities 07/31/18: No sonographic evidence of acute occlusive deep venous thrombosis within the right or left lower extremity. Non-occlusive likely chronic thrombus at the left common femoral vein, greater saphenous junction -Anticoagulated on Coumadin, will resume coumadin today Patient seen in collaboration with Dr. Morales. Please see addendum. Supervising Physician Co-Signing Physician Notes Pt was seen and examined. Agreed with Alisha TILLMAN exam, assessment and plan. Pt said breathing feeling much better. 2 step done today and requires oxygen 2LPM at rest and 4LPM with ambulation. Will discharge on prednisone and doxycycline. Follow up with PCP. Case management arranged for the oxygen supplement to be delivery today before discharged. MD Carmen Subjective Patient seen and examined while sitting in bedside chair. Feeling well today. Appetite is improving. Oxygen saturation at 95% on 2L NC. Denies chest pain, tightness, palpitations or SOB at rest. Denies fever, chills, cough, nausea, vomiting, SOB, dysuria, diarrhea or constipation. Is ready for discharge home with services today. Physical Exam Vital Signs (Past 24 Hours): Short CBC 08/30/18 Range/Units 05:58 WBC 8.69 (4.8-10.8) K/uL Hgb 9.7 L (12.0-16.0) g/dL Hct 30.8 L (37-47) % Plt Count 143 (130-400) K/uL BMP 08/30/18 05:58 Sodium 142 Potassium 4.2 D Chloride 109 H Carbon Dioxide 28 BUN 34 H Creatinine 0.68 Glucose 84 Calcium 8.6 Physical Exam: General Appearance: WD/WN, no apparent distress, resting comfortably in bedside chair Head: normocephalic, atraumatic Eyes: normal inspection, PERRL, EOMI ENT: hearing grossly normal, pharynx normal (moist mucous membranes) Neck: supple, no JVD, no adenopathy Respiratory/Chest: Bibasilar crackles. No wheezing or rhonchi noted. No respiratory distress or accessory muscle use Cardiovascular: regular rate, rhythm, no murmur, normal peripheral pulses, 2+ BLE edema Abdomen/GI: normal bowel sounds, soft, non-tender to palpation Extremities/Musculoskelatal: normal inspection, no calf tenderness, normal capillary refill, no pedal edema Neurologic/Psych: alert, normal mood/affect, oriented x 3 Skin: normal color, warm/dry Results & Data Laboratory Results Short CBC 08/30/18 Range/Units 05:58 WBC 8.69 (4.8-10.8) K/uL Hgb 9.7 L (12.0-16.0) g/dL Hct 30.8 L (37-47) % Plt Count 143 (130-400) K/uL BMP 08/30/18 05:58 Sodium 142 Potassium 4.2 D Chloride 109 H Carbon Dioxide 28 BUN 34 H Creatinine 0.68 Glucose 84 Calcium 8.6
[2018-08-30 11:54] VITALS: BP 114/68; TEMP 97.2
[2018-08-30 14:09] VITALS: O2SAT 95
[2018-08-30] MEDS: WARFARIN SOD 5 MG TAB PO SCH (16:18)
[2018-08-30 17:29] VITALS: PULSE 91
--- NOTE | 2018-09-01 07:46 | Discharge Summary ---
Date of Service August 30, 2018 Admission HPI Per Admitting Provider 73-year-old female who presents to the ED for evaluation of fever and cough. Patient was recently admitted to [facility] 07/30 through 08/09 for volume overload. At the time of discharge, patient had an increase in her diuretics. Other recent history includes, status post brain radiation for treatment of AVM with subsequent complications including vasogenic edema and seizures /status epilepticus. Patient now off steroids and well managed on Depakote. After previous admission, patient was discharged to [facility] for rehab needs. Patient notes over the past couple of days she has been having increasing fatigue and generalized weakness. When she woke up this morning, she reports she had chills and was shaking. She also notes a nonproductive cough and some shortness of breath. She is found to be febrile and had an increased oxygen requirement. She was then sent to the ED for further evaluation. Patient reports that her lower extremity edema continues to improve. She denies chest pain or palpitations. No lightheadedness, dizziness, diaphoresis, syncopal events. She denies abdominal pain, nausea, vomiting, diarrhea. No urinary symptoms.In the ED, patient presented with a low-grade temp of 37.9, WBC 11.8 K, POC lactic acid 1.5, tachycardia, hypotension. Patient is currently requiring 4 L via oxygen mask to maintain saturations ~92%. Patient was given IV Vanco, IV Levaquin, Solu-Medrol 125 mg IV. She was started on IVF cautiously due to her recent history of profound volume overload. Admission Exam Per Admitting Provider Constitutional: WD/WN, vitals as above Eyes: PERRL, conjunctivae normal, anicteric sclerae ENMT: external ear and nose normal, oropharynx normal Respiratory: normal respiratory effort; no respiratory distress Auscultation: + diminished lung sounds and + crackles (Faint, bilateral bases) Cardiovascular: Rate/Rhythm: regular rate and regular rhythm Vessels: normal peripheral pulses Extremities: + edema (+2-3 BLE) Gastrointestinal normal bowel sounds, soft, nontender, no hepatosplenomegaly Musculoskeletal: no cyanosis or clubbing, extremities motor strength 5/5 Skin: no rashes, warm and dry Neurologic: PERRL, EOMI, accommodation nl, no face palsy, no dysarthria Psychiatric: A+Ox3, euthymic affect Principal Diagnosis Pneumonia Hypokalemia COPD (chronic obstructive pulmonary disease) AVM (arteriovenous malformation) brain Non ischemic cardiomyopathy Seizure Discharge Exam General Appearance: WD/WN, no apparent distress, resting comfortably in bedside chair Head: normocephalic, atraumatic Eyes: normal inspection, PERRL, EOMI ENT: hearing grossly normal, pharynx normal (moist mucous membranes) Neck: supple, no JVD, no adenopathy Respiratory/Chest: Bibasilar crackles. No wheezing or rhonchi noted. No respiratory distress or accessory muscle use Cardiovascular: regular rate, rhythm, no murmur, normal peripheral pulses, 2+ BLE edema Abdomen/GI: normal bowel sounds, soft, non-tender to palpation Extremities/Musculoskelatal: normal inspection, no calf tenderness, normal capillary refill, no pedal edema Neurologic/Psych: alert, normal mood/affect, oriented x 3 Skin: normal color, warm/dry Discharge Data Allergies Allergy/AdvReac Type Severity Reaction Status Date / Time Sulfa (Sulfonamide Allergy Mild rash Verified 08/31/18 23:57 Antibiotics) alcohol Allergy Unknown Recovering Verified 08/31/18 23:57 Alcoholic Opioids - Morphine Analogues AdvReac HISTORY OF Verified 08/31/18 23:57 ADDICTION Consultations 08/25/18 18:15 ED Decision to Admit Stat 08/25/18 20:30 Consult Case Management - Discharge Planning Routine Consult Equipment Processor Routine 08/25/18 21:00 Consult Case Management - Discharge Planning Routine Ordered Studies 08/26/18 05:36 CT abd pelvis IV con only Urgent 08/26/18 06:00 CT angio chest PE protocol Urgent XR chest 1V portable CLINICAL HISTORY: MD order dyspnea COMPARISON STUDY: 08/25/2018 FINDINGS: Improving aeration of the lung bases. Improving infiltrative change right midlung. Lungs otherwise appear clear. Diaphragms are smooth. IMPRESSION: Improving basilar infiltrative change. Improving right midlung infiltrative change. The above report was generated using voice recognition software. It may contain grammatical, syntax or spelling errors. Electronically signed by: Immanuel Fernández M.D. 08/29/2018 4:00 PM Dictated: 08/29/18 1556 Transcribed: 08/29/[address] ANGIOGRAPHY OF THE CHEST, PULMONARY EMBOLUS PROTOCOL CLINICAL HISTORY: Shortness of breath. COMPARISON STUDY: Chest radiograph August 07, 2018. Chest radiograph August 25, 2018. Chest CT September 01, 2015. TECHNIQUE: Following IV administration of 119 mL of Optiray-320, helical axial images of the chest were obtained utilizing the pulmonary embolus protocol. Maximal intensity projections and sagittal and coronal reformats were viewed on an independent 3D workstation. IV contrast was administered without complication. Automated exposure control was utilized for the study. A dose lowering technique was utilized adhering to the principles of ALARA. FINDINGS: No pulmonary embolus is identified. Central pulmonary arteries are mildly dilated. There is moderate cardiomegaly and coronary artery calcification. There is no thoracic aortic dissection. No pericardial effusion is noted. There is no pneumothorax or significant pleural effusion. Moderate emphysema is noted. Interlobular septal thickening is noted. Moderate bilateral lower lobe airspace opacities are noted. Additional scattered airspace opacities are noted within the lungs. Lungs are suboptimally assessed given respiratory motion. IMPRESSION: 1. No pulmonary emboli identified. 2. Moderate bilateral lower lobe airspace opacities which favors pneumonia or aspiration pneumonitis. 3. Mild interstitial pulmonary edema. 4. Moderate emphysema. 5. Cardiomegaly and moderate coronary artery calcification. Electronically signed by: Shin Larose M.D. 08/26/2018 7:15 AM Dictated: 08/26/18 0707 Transcribed: 08/26/[address] OF THE ABDOMEN AND PELVIS WITH CONTRAST CLINICAL HISTORY: Abdominal pain. Drop in H&H. COMPARISON STUDY: Right thigh ultrasound August 07, 2018. TECHNIQUE: Following IV administration of 119 mL of Optiray-320, axial images of the abdomen and pelvis were obtained from the lung bases to the proximal femurs. Images were reviewed in the axial, sagittal, and coronal planes. IV contrast was administered without complication. Automated exposure control was utilized for the study. A dose lowering technique was utilized adhering to the principles of ALARA. CT DOSE: 724.88 mGy.cm FINDINGS: Please note that the chest CT will be reported separately. Bilateral lower lobe airspace opacity favors pneumonia. The liver, spleen, adrenal glands, kidneys and pancreas are unremarkable. There is no biliary or pancreatic ductal dilatation. No hydronephrosis or hydroureter. There is no pericholecystic infiltration. Gallbladder is at the upper limits of normal for size. There is no evidence for a bowel obstruction. There is sigmoid diverticulosis without evidence for acute diverticulitis. There is extensive plaque within the bilateral common iliac arteries. These are suboptimally assessed on this non-CTA exam. A Cox balloon is present within the bladder which is collapsed. Small amount of fluid within the anterior medial right thigh is noted. This measures just above water attenuation. This likely corresponds to the finding on ultrasound of August 07, 2018. No pneumatosis, free air or portal venous gas is present. IMPRESSION: 1. No acute process within the abdomen or pelvis. 2. Small amount of fluid/infiltration within the right groin which likely corresponds to the finding shown on ultrasound of August 07, 2018 and favors a resolving hematoma. 3. Bilateral lower lobe airspace opacity which favors pneumonia. 4. Colonic diverticulosis without evidence for acute diverticulitis. Electronically signed by: Shin Larose M.D. 08/26/2018 7:23 AM Dictated: 08/26/18 0716 Transcribed: 08/26/18715 XR chest 1V portable CLINICAL HISTORY: Dyspnea COMPARISON STUDY: Chest radiograph August 07, 2018. FINDINGS: Lung volumes are mildly diminished. There is no pneumothorax. There may be trace bilateral pleural effusions. Mild bibasilar opacities are present. There is possible mild right midlung opacity. Pulmonary vascular congestion is noted. IMPRESSION: 1. Suspected developing mild right midlung opacity which may reflect pneumonia. 2. Pulmonary vascular congestion. 2. Trace bilateral pleural effusions with bibasilar opacities favor atelectasis although consolidation could appear similar. Electronically signed by: Shin Larose M.D. 08/25/2018 4:48 PM Dictated: 08/25/18 1646 Transcribed: 08/25/18 1646 Hospital Course (1) HCAP (healthcare-associated pneumonia): Admitted to ICU on 08/25/18 for sepsis secondary to presumed hospital ac quired pneumonia in the setting of fever, tachycardia, and hypoxia and CXR findings and recent hospitalizations -[facility]: admission CXR on 08/25/18 there does appear to be a linear infiltrative versus atelectatic change at the base of the RIGHT Middle lobe; trace bilateral pleural effusions -Chest CTA 08/26/18: Moderate bilateral lower lobe airspace opacities which favors pneumonia or aspiration pneumonitis. Mild interstitial pulmonary edema. no thoracic aortic dissection -Repeat CXR 08/29/18 with improving basilar infiltrative change and improving right midlung infiltrative change -No growth on blood or urine cultures. Clinically improving. De-escalated Vancomycin and Zosyn to doxycycline and rocephin -Clinically improving but has mild hypoxic respiratory failure 2/2 pneumonia as described above -2-step pending prior to discharge (2) COPD (chronic obstructive pulmonary disease): Continue nebulizer treatments, 40mg daily PO prednisone (3) Hypokalemia: Potassium back to normal range, magnesium level normal -Will plan to increase home KCl supplementation upon discharge (4) Non-ischemic cardiomyopathy: Patient in the past had Ejection Fraction as low as 25%, echocardiogram from 07/31/18 demonstrating EF greater than 70% -Repeat echocardigram on 08/25/18 is unchanged with EF greater than 70% -Continue home dose Lasix 40mg BID (5) AVM (arteriovenous malformation) brain: AVM (arteriovenous malformation) brain: incidental diagnosis in January 2018 -S/p seizure from vasogenic edema and treated with steroids. -No longer on steroids currently (6) Seizures: Seizures History. Due to post radiation for AVM from vasogenic edema in the past -Continue Depakote 1000 mg b.i.d -Does not currently have vasogenic edema at this time as she does not have any neurological deficits on this hospital presentation (7) DVT (deep venous thrombosis): History of chronic DVT of left lower extremity -U/S of lower extremities 07/31/18: No sonographic evidence of acute occlusive deep venous thrombosis within the right or left lower extremity. Non-occlusive likely chronic thrombus at the left common femoral vein, greater saphenous junction -Anticoagulated on Coumadin, will resume coumadin today Patient seen in collaboration with Dr. Morales. Please see addendum. Total Time Total Time Spent Total Time Spent (In Minutes): 35 minutes Total Time Includes: Examination of the Patient, Discharge Planning, Medication Reconciliation, Communication With Other Providers and Other Discharge Plan Discharge Items Patient Disposition: Home - Home Health Services Reason For Visit: PNEUMONIA, SEPSIS Discharge Diagnosis: Pneumonia Hypokalemia Discharge Goals: Decrease discomfort, Improve disease control, Increase independence and Improve nutritional status Activity: Resume your previous activity Activity Comment: As tolerated Non-emergency contact: Primary Care Provider Call non-emergency contact if: you have any medication questions and your temperature is above 101 Follow-up/Referrals: Shameka Coe [Primary Care Provider] - Diet: Heart Healthy Addtl Provider Instructions: Follow up with your primary care provider Dr. Ponce on 09/03 @ 12:45 PM Follow up with the coumadin clinic Check PT/INR in 2 to 3 days Continue coumadin daily (Monitor for any abnormal bleeding and notify your physician if any) Continue oxygen supplement Check BMP in 1 week to monitor electrolytes Fall precaution Continue physical and occupational therapy Follow a low salt diet Seizure precaution (Do not bath or swim alone. Avoid any high level activity ) Complete course of antibiotic and prednisone Prescriptions: New prednisone 20 mg tablet 20 mg PO DAILY 5 Days Qty: 5 RF: 0 furosemide 40 mg tablet 40 mg PO BID 30 Days Qty: 60 RF: 0 divalproex 500 mg tablet extended release 24 hr 1,000 mg PO Q12H 30 Days Qty: 60 RF: 0 warfarin [Coumadin] 5 mg Tablet 5 mg PO DAILY 30 Days Qty: 30 RF: 0 metoprolol succinate 25 mg tablet extended release 24 hr 25 mg PO DAILY 30 Days Qty: 30 RF: 0 potassium chloride [Klor-Con M10] 10 mEq tablet,ER particles/crystals 10 meq PO TID 30 Days Qty: 90 RF: 0 ipratropium bromide 17 mcg/actuation Hfa Aerosol Inhaler 2 puff INHALATION Q2H PRN (Reason: Shortness Of Breath) 30 Days Qty: 1 RF: 0 Breo Ellipta 200-25 mcg/dose Blister With Device 1 inh INHALATION DAILY 30 Days Qty: 1 RF: 0 Continued aspirin [Aspir-81] 81 mg Tablet,Delayed Release (Dr/Ec) 81 mg PO DAILY RF: 0 Incruse Ellipta 62.5 mcg/actuation Blister With Device 1 inh INHALATION DAILY RF: 0 acetaminophen 325 mg Tablet 650 mg PO Q6H MDD 3G PRN (Reason: Fever Or Pain) RF: 0 Discontinued magnesium oxide 400 mg (241.3 mg magnesium) Tablet 400 mg PO QAM 30 Days Qty: 30 RF: 0 No Action doxycycline hyclate [Vibramycin] 100 mg Capsule 100 mg PO BID RF: 0 Stand-Alone Forms: My [employer]/Other Patient Handouts: Safety Oxygen Use, Pneumonia, Oxygen Home Use, Pneumonia Prevent Discharge Orders: Discharge Order (Routine); Ordered 08/30/18 Ordered By: Jorge Luis Morales Admission Data Admit Date/Time: 08/25/18 19:10 Attending Provider: Jorge Luis Morales Admit Provider: Vaughn Shannon Primary Care Provider: Shameka Coe Other Providers: Vaughn Shannon ; Bambi Hodgson Service: Telemetry Other Interventions: Discharge Summary Assessment (RN) Last Done: 08/30/18 16:22 DC Date/Time DO NOT enter until pt leaves facility: 08/30/18 16:43
== END 2018-08-30 16:43 | disposition home health service (06) | DRG 871 ==
LOC: ED 16:05 → 1E 19:10 → SUATTDRO 19:10 → 1E 19:52 → 2E 08-26 18:29

== ENCOUNTER 2018-08-31 22:13 | Inpatient (IN) ==
[2018-08-31] MEDS ORDERED: LORazepam 2 MG/4 ML VIAL ONE (22:22)
--- NOTE | 2018-08-31 22:43 | XRay Report ---
XR chest 1V portable HISTORY: 73 years-old Female CVA acute seizure with strokelike symptoms COMPARISON: Chest radiograph 08/29/2018, CTA chest 08/26/2018 TECHNIQUE: Portable AP view of the chest FINDINGS: Cardiac silhouette is mildly enlarged, unchanged. Calcification of the thoracic aortic arch. No pneum othorax, overt pulmonary edema or large pleural effusion. Emphysema. Improved aeration of the lung ba ses with persistent patchy bibasilar predominant alveolar densities. Additional ill-defined opacities of the lateral right midlung. Degenerative changes of the shoulders and spine. IMPRESSION: 1. Cardiomegaly without overt pulmonary edema. 2. Persistent ill-defined bibasilar predominant alveolar opacities suggestive of pneumonitis. 3. Emphysema. The above report was generated using voice recognition software. It may contain grammatical, syntax o r spelling errors. Electronically signed by: Michael Pedro M.D. 08/31/2018 10:41 PM
--- NOTE | 2018-08-31 22:57 | CT Scan Report ---
CT head/brain wo con CLINICAL HISTORY: 73 years-old Female with Stroke evaluation . Acute strokelike symptoms TECHNIQUE: Multiple axial CT images of the head were obtained without contrast. A dose lowering tech nique was utilized adhering to the principles of ALARA. CT DOSE: 691.05 mGy.cm COMPARISON: CT head 07/08/2018, brain MRI 01/24/2018. FINDINGS: No acute intracranial hemorrhage, midline shift, intra-axial mass, hydrocephalus, territorial ischemi a or abnormal extra-axial collection. Partially calcified AVM about the medial aspect of the superior left cerebral hemisphere redemonstrated, 2.8 x 1.9 cm. Mild surrounding vasogenic edema redemonstrat ed. Study is mildly motion degraded. Cerebral vascular calcifications noted. The calvarium is intact. The paranasal sinuses, mastoid air cells, and middle ear cavities are clear . IMPRESSION: 1. No acute intracranial abnormality. 2. Partially calcified AVM adjacent to the superior medial aspect of the left hemisphere appears unch anged. The above report was generated using voice recognition software. It may contain grammatical, syntax o r spelling errors. Electronically signed by: Michael Pedro M.D. 08/31/2018 10:56 PM
[2018-08-31 22:58] LABS: INR 1.3 (0.9-1.1); Partial Thromboplastin Time 27.1 Seconds (21.0-31.0); Prothrombin Time 12.9 Seconds (9.0-12.0)
[2018-08-31 23:04] LABS: Alanine Aminotransferase 23 U/L (12-78); Albumin Level 2.9 gm/dl (3.4-5.0); Aspartate Aminotransferase 39 U/L (15-37); BUN Creatinine Ratio 50.7 (10-20); Blood Urea Nitrogen 48 mg/dl (7-18); Calcium 8.8 mg/dl (8.5-10.1); Carbon Dioxide 30 mmol/L (21-32); Chloride 107 mmol/L (98-107); Creatinine Clr Calc Pharmacy 51.8 ml/min; Est GFR (African American) 70.2; Est GFR (Non-African American) 60.6; Glucose 157 mg/dl (70-99); Magnesium 1.9 mg/dl (1.8-2.4); Potassium 4.7 mmol/L (3.5-5.1); Sodium 142 mmol/L (136-145)
[2018-08-31 23:09] LABS: Albumin Globulin Ratio 0.9 (0.9-2); Alkaline Phosphatase 68 U/L (45-117); Bilirubin,Total 0.3 mg/dl (0.2-1); Globulin 3.4 gm/dl (2.5-4.0); Total Protein 6.3 gm/dl (6.4-8.2); Troponin I < 0.015 ng/ml (0-0.045)
[2018-08-31 23:14] LABS: Hematocrit (blood only) 38.4 % (37-47); Mean Corpuscular Hgb Conc 31.3 g/dL (32-36); Mean Corpuscular Volume 104.6 fL (80-100); Mean Platelet Volume 8.8 fL (7.4-10.4); Nucleated RBC # (auto) 0.07 K/uL (0-0); Nucleated RBC % (auto) 0.3 %; Platelet Count 257 K/uL (130-400); RDW Coefficient of Variation 15.2 % (11.5-14.5); RDW Standard Deviation 58.3 fL (36.4-46.3); Red Blood Count 3.67 M/uL (4.2-5.4); White Blood Count 20.84 K/uL (4.8-10.8)
[2018-08-31 23:18] LABS: ALC (manual) 4.21 K/uL (1.2-3.4); Lymphocytes # (manual) 4.21 K/uL (1.2-3.4); Lymphocytes % (manual) 20.2 %; Metamyelocytes # (manual) 2.38 K/uL (0-0); Metamyelocytes % (manual) 11.4 %; Monocytes # (manual) 1.27 K/uL (0.11-0.59); Monocytes % (manual) 6.1 %; Myelocytes # (manual) 1.27 K/uL (0-0); Myelocytes % (manual) 6.1 %; Neutrophils % (manual) 56.2 %; Toxic Vacuolation 1+
[2018-08-31 23:58] LABS: Appearance Urine Clear (Clear); Bilirubin Urine Negative (Negative); Blood Urine Negative (Negative); Color Urine Yellow; Glucose Urine UA Negative (Negative); Ketones Urine Negative (Negative); Leukocyte Esterase Urine Negative (Negative); Nitrite Urine Negative (Negative); Protein Urine Negative (Negative); Specific Gravity Urine 1.015 (1.000-1.030); Urobilinogen Urine Negative (Negative); pH Urine 5.5 (4.5-7.5)
[2018-08-31] MEDS ORDERED: LORazepam 2 MG/4 ML VIAL IV STA (23:58)
--- NOTE | 2018-09-01 02:42 | Emergency Department Note ---
Entered by Joseph Harding acting as a scribe for Palma Kirby MD History of Present Illness General Chief complaint: Seizure Stated complaint: WEAKNESS Source: family and EMS Limitations: clinical acuity History of Present Illness Provider complaint: Seizure Onset (ago): minute(s) Location: left and right Relieved By: + none Exacerbated By: + none Associated symptoms: + confusion The patient is a 73 year old female who presents to the Emergency Room with complaints of seizure suffered shortly prior to arrival. The patient presents to the ED via EMS. The HPI is limited secondary to clinical acuity. Per EMS, the patient's family originally called EMS due to the patient being confused and was talking at first, but they she began to convulse. Per the patient's , the patient was seen at [facility] for PNA and is currently on abx. 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 He adds that the patient has a history of seizures and was intubated the last time for seizures. , Home Medications Home Medications Medication Instructions Recorded Confirmed Type Incruse Ellipta 1 inh INHALATION DAILY 04/11/18 09/01/18 History aspirin [Aspir-81] 81 mg PO DAILY 04/11/18 09/01/18 History acetaminophen 650 mg PO Q6H PRN MDD 3G 07/30/18 09/01/18 History Breo Ellipta 1 inh INHALATION DAILY 30 Days #1 08/30/18 09/01/18 Rx ea divalproex 1,000 mg PO Q12H 30 Days #60 tab 08/30/18 09/01/18 Rx furosemide 40 mg PO BID 30 Days #60 tab 08/30/18 09/01/18 Rx ipratropium bromide 2 puff INHALATION Q2H PRN 30 Days 08/30/18 09/01/18 Rx #1 gm metoprolol succinate 25 mg PO DAILY 30 Days #30 tab 08/30/18 09/01/18 Rx potassium chloride [Klor-Con M10] 10 meq PO TID 30 Days #90 tab 08/30/18 09/01/18 Rx warfarin [Coumadin] 5 mg PO DAILY 30 Days #30 tab 08/30/18 09/01/18 Rx doxycycline hyclate [Vibramycin] 100 mg PO BID 08/31/18 09/01/18 History Allergies Allergy/AdvReac Type Severity Reaction Status Date / Time Sulfa (Sulfonamide Allergy Mild rash Verified 08/31/18 23:57 Antibiotics) alcohol Allergy Unknown Recovering Verified 08/31/18 23:57 Alcoholic Opioids - Morphine Analogues AdvReac HISTORY OF Verified 08/31/18 23:57 ADDICTION Past Med/Surg History Medical History Hematoma of right thigh (Resolved) Non-ischemic cardiomyopathy (Chronic) Obesity (BMI 30.0-34.9) (Chronic) DVT (deep venous thrombosis) (Chronic) 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 current use of anticoagulants with INR goal of 2.0-3.0 (Chronic) Vasogenic edema (Resolved) AVM (arteriovenous malformation) brain (Chronic) Seizures (Chronic) AA (alcohol abuse) (Resolved) COPD (chronic obstructive pulmonary disease) (Chronic) Surgical History History of appendectomy (Chronic) History of cataract surgery (Chronic) Family History Mother Stroke Heart disease Social History Communication Ability: Effective Beliefs That Will Affect Care: None marital status: Current Living Situation: Spouse Current Living Situation Comment: [facility] Feels Safe at Home: Yes Smoking Status: Former smoker Hx Alcohol Use: No Hx Substance Use: No Review of Systems See HPI for pertinent positives & negatives. and A total of 10 systems reviewed and were otherwise negative Physical Exam Vital Signs Vital Signs - 24 hr 09/03/18 10:02 09/03/18 10:29 09/03/18 14:47 Temperature 36.7 C Temperature Source Oral Pulse Rate [Right Finger] 81 Pulse Rhythm [Right Finger] Pulse Strength [Right Finger] Respiratory Rate 16 Respiratory Effort / Characteristics Non-Labored Respiratory Depth Normal Respiratory Pattern Regular Blood Pressure [Left Arm] 92/60 L Blood Pressure Mean [Left Arm] 70 Blood Pressure Position [Left Arm] Sitting Pulse Oximetry 99 96 Oxygen Delivery Method Nasal Cannula Nasal Cannula Oxygen Flow Rate 2 2 09/03/18 15:19 09/03/18 19:25 09/03/18 21:00 Temperature 36.9 C 36.7 C Temperature Source Oral Oral Pulse Rate [Right Finger] 80 77 Pulse Rhythm [Right Finger] Pulse Strength [Right Finger] Respiratory Rate 18 16 Respiratory Effort / Characteristics Non-Labored Non-Labored Non-Labored Respiratory Depth Normal Normal Normal Respiratory Pattern Regular Blood Pressure [Left Arm] 82/55 L 91/60 L Blood Pressure Mean [Left Arm] 64 70 Blood Pressure Position [Left Arm] Lying Lying Pulse Oximetry 98 98 Oxygen Delivery Method Nasal Cannula Room Air Nasal Cannula Oxygen Flow Rate 2 2 09/04/18 04:35 09/04/18 07:14 Temperature 36.5 C 37.0 C Temperature Source Oral Oral Pulse Rate [Right Finger] 87 78 Pulse Rhythm [Right Finger] Regular Pulse Strength [Right Finger] Normal Respiratory Rate 20 16 Respiratory Effort / Characteristics Non-Labored Respiratory Depth Normal Respiratory Pattern Blood Pressure [Left Arm] 134/82 114/74 Blood Pressure Mean [Left Arm] 99 87 Blood Pressure Position [Left Arm] Lying Sitting Pulse Oximetry 100 98 Oxygen Delivery Method Nasal Cannula Nasal Cannula Oxygen Flow Rate 2 2 Vital signs reviewed. General: Chronically ill-appearing elderly female, unresponsive. HEENT: No scleral icterus, PERRLA, neck supple. Atraumatic. Cardiovascular: Tachycardic, no extra sounds. Pulmonary: Coarse breath sounds, sonorous with normal work of breathing. NRB. Abdomen: Soft, nontender, nondistended, positive bowel sounds. Musculoskeletal: Atraumatic, no peripheral edema. Neurologic: Patient unresponsive to verbal stimuli, actively seizing, with rightward gaze with subtle upper extremity twitches, likely seizure activity. Skin: Warm, dry, Bilateral upper extremity ecchymotic areas in various stages of healing. Course 2223: Past medical records reviewed. The patient was evaluated in room B01, and a complete history and physical examination were performed. 2354: I [facility] the [facility] He will evaluate the patient for further management. Administered Medications Aspirin (Ecotrin Ectab) 81 mg PO DAILY MILY Stop: 10/01/18 08:59 Last Admin: 09/03/18 09:00 Dose: 81 mg Documented by: [id number] Admin: 09/02/18 10:21 Dose: 81 mg Documented by: [id number] Admin: 09/02/18 08:08 Dose: Not Given Documented by: [id number] Admin: 09/01/18 09:01 Dose: Not Given Documented by: [id number] Divalproex Sodium (Depakote Extended Release) 1,000 mg PO Q12 [facility] Stop: 10/01/18 08:59 Last Admin: 09/01/18 09:01 Dose: Not Given Documented by: [id number] Fluticasone/Vilanterol (Breo Ellipta) 1 puffs INH DAILY MILY Stop: 10/03/18 08:59 Last Admin: 09/03/18 08:54 Dose: 1 puffs Documented by: [id number] Piperacillin Sod/Tazobactam (Sod 3.375 gm/ Dextrose) 115 mls @ 28.75 mls/hr IV Q8H [facility]; Protocol Stop: 09/08/18 15:29 Last Admin: 09/04/18 07:45 Dose: 30 mls/hr Documented by: [id number] Infusion: 09/04/18 04:48 Dose: 0 mls/hr Documented by: [id number] Admin: 09/03/18 23:53 Dose: 30 mls/hr Documented by: [id number] Infusion: 09/03/18 20:31 Dose: 0 mls/hr Documented by: [id number] Admin: 09/03/18 16:39 Dose: 30 mls/hr Documented by: [id number] Infusion: 09/03/18 13:28 Dose: 0 mls/hr Documented by: [id number] Admin: 09/03/18 09:26 Dose: 28.8 mls/hr Documented by: [id number] Infusion: 09/03/18 04:17 Dose: 0 mls/hr Documented by: [id number] Admin: 09/03/18 00:12 Dose: 28.8 mls/hr Documented by: [id number] Infusion: 09/02/18 19:45 Dose: 0 mls/hr Documented by: [id number] Admin: 09/02/18 15:44 Dose: 28.8 mls/hr Documented by: [id number] Infusion: 09/02/18 12:15 Dose: 0 mls/hr Documented by: [id number] Admin: 09/02/18 08:03 Dose: 28.8 mls/hr Documented by: [id number] Infusion: 09/02/18 03:47 Dose: 0 mls/hr Documented by: [id number] Admin: 09/01/18 23:43 Dose: 28.8 mls/hr Documented by: [id number] Infusion: 09/01/18 21:37 Dose: 0 mls/hr Documented by: [id number] Admin: 09/01/18 17:19 Dose: 28.8 mls/hr Documented by: [id number] Valproic Acid 625 mg/ Dextrose 56.25 mls @ 55 mls/hr IV Q6H MILY Stop: 10/01/18 15:59 Last Infusion: 09/04/18 07:23 Dose: 0 mls/hr Documented by: [id number] Admin: 09/04/18 06:21 Dose: 55 mls/hr Documented by: [id number] Infusion: 09/04/18 01:03 Dose: 0 mls/hr Documented by: [id number] Admin: 09/03/18 23:52 Dose: 55 mls/hr Documented by: [id number] Infusion: 09/03/18 20:24 Dose: 0 mls/hr Documented by: [id number] Admin: 09/03/18 18:33 Dose: 55 mls/hr Documented by: [id number] Infusion: 09/03/18 14:39 Dose: 0 mls/hr Documented by: [id number] Admin: 09/03/18 12:51 Dose: 55 mls/hr Documented by: [id number] Infusion: 09/03/18 05:20 Dose: 0 mls/hr Documented by: [id number] Admin: 09/03/18 04:18 Dose: 55 mls/hr Documented by: [id number] Infusion: 09/03/18 00:12 Dose: 0 mls/hr Documented by: [id number] Admin: 09/02/18 23:07 Dose: 55 mls/hr Documented by: [id number] Infusion: 09/02/18 16:54 Dose: 0 mls/hr Documented by: [id number] Admin: 09/02/18 15:44 Dose: 55 mls/hr Documented by: [id number] Infusion: 09/02/18 11:51 Dose: 0 mls/hr Documented by: [id number] Admin: 09/02/18 10:48 Dose: 55 mls/hr Documented by: [id number] Infusion: 09/02/18 05:00 Dose: 0 mls/hr Documented by: [id number] Admin: 09/02/18 03:54 Dose: 55 mls/hr Documented by: [id number] Infusion: 09/01/18 23:42 Dose: 0 mls/hr Documented by: [id number] Admin: 09/01/18 22:28 Dose: 55 mls/hr Documented by: [id number] Infusion: 09/01/18 17:34 Dose: 0 mls/hr Documented by: [id number] Admin: 09/01/18 15:24 Dose: 55 mls/hr Documented by: [id number] Doxycycline Hyclate 100 mg/ (Dextrose) 110 mls @ 50 mls/hr IV Q12H MILY Stop: 09/09/18 20:59 Last Infusion: 09/03/18 23:20 Dose: 0 mls/hr Documented by: [id number] Admin: 09/03/18 20:31 Dose: 50 mls/hr Documented by: [id number] Infusion: 09/03/18 12:52 Dose: 0 mls/hr Documented by: [id number] Admin: 09/03/18 09:29 Dose: 50 mls/hr Documented by: [id number] Infusion: 09/02/18 22:30 Dose: 0 mls/hr Documented by: [id number] Admin: 09/02/18 20:34 Dose: 50 mls/hr Documented by: [id number] Metoprolol Succinate (Toprol Xl) 25 mg PO DAILY MILY Stop: 10/01/18 08:59 Last Admin: 09/03/18 09:28 Dose: 25 mg Documented by: [id number] Admin: 09/02/18 10:21 Dose: 25 mg Documented by: [id number] Admin: 09/02/18 08:09 Dose: Not Given Documented by: [id number] Admin: 09/01/18 09:02 Dose: Not Given Documented by: [id number] Mupirocin (Bactroban 2%) 1 appln NA BID MILY Stop: 10/01/18 20:59 Last Admin: 09/03/18 20:25 Dose: 1 appln Documented by: [id number] Admin: 09/03/18 09:28 Dose: 1 appln Documented by: [id number] Admin: 09/02/18 20:37 Dose: 1 appln Documented by: [id number] Admin: 09/02/18 08:07 Dose: 1 appln Documented by: [id number] Admin: 09/01/18 21:00 Dose: 1 appln Documented by: [id number] Potassium Chloride (Klor-Con M10) 10 meq PO TID MILY Stop: 10/01/18 08:59 Last Admin: 09/03/18 20:25 Dose: 10 meq Documented by: [id number] Admin: 09/03/18 12:53 Dose: 10 meq Documented by: [id number] Admin: 09/03/18 09:01 Dose: 10 meq Documented by: [id number] Admin: 09/02/18 20:38 Dose: 10 meq Documented by: [id number] Admin: 09/02/18 13:38 Dose: 10 meq Documented by: [id number] Admin: 09/02/18 08:08 Dose: Not Given Documented by: [id number] Admin: 09/01/18 23:58 Dose: Not Given Documented by: [id number] Admin: 09/01/18 12:25 Dose: Not Given Documented by: [id number] Admin: 09/01/18 09:02 Dose: Not Given Documented by: [id number] Prednisone (Prednisone) 40 mg PO DAILY MILY Stop: 10/03/18 08:59 Last Admin: 09/03/18 09:00 Dose: 40 mg Documented by: [id number] Umeclidinium [place] (Incruse Ellipta) 1 ea INH DAILY MILY Stop: 10/03/18 08:59 Last Admin: 09/03/18 09:00 Dose: 1 ea Documented by: [id number] Warfarin Sodium (Coumadin) 5 mg PO DAILY@1600 MILY Stop: 10/01/18 15:59 Last Admin: 09/03/18 16:42 Dose: 5 mg Documented by: [id number] Admin: 09/02/18 15:44 Dose: 5 mg Documented by: [id number] Admin: 09/01/18 15:20 Dose: Not Given Documented by: [id number] Discontinued Medications Heparin Sodium (Porcine) (Heparin Sodium (Porcine)) 5,000 units SQ Q12 MILY Stop: 10/01/18 08:59 Last Admin: 09/03/18 09:02 Dose: 5,000 units Documented by: [id number] Cosigned by: [id number] Admin: 09/02/18 20:38 Dose: 5,000 units Documented by: [id number] Cosigned by: [id number] Admin: 09/02/18 08:08 Dose: 5,000 units Documented by: [id number] Cosigned by: [id number] Admin: 09/01/18 21:01 Dose: 5,000 units Documented by: [id number] Cosigned by: [id number] Admin: 09/01/18 10:19 Dose: 5,000 units Documented by: [id number] Cosigned by: [id number] Levetiracetam 1,000 mg/ (Dextrose) 110 mls @ 440 mls/hr IV NOW STA Stop: 09/01/18 00:11 Last Infusion: 09/01/18 00:29 Dose: 0 mls/hr Documented by: [id number] Admin: 09/01/18 00:14 Dose: 440 mls/hr Documented by: [id number] Lorazepam (Ativan) 2 mg in 4 mls @ 4 mls/min IV NOW STA Stop: 08/31/18 23:59 Last Admin: 09/01/18 00:01 Dose: 4 mls/min Documented by: [id number] Cefepime HCl 1,000 mg/ Syringe 11.3 mls @ 5.5 mls/min IV Q12H MILY Stop: 09/08/18 04:59 Last Admin: 09/01/18 05:17 Dose: 5.5 mls/min Documented by: [id number] Methylprednisolone 40 mg/ (Syringe) 0.64 mls @ 1.5 mls/min IV Q6H MILY Stop: 10/01/18 04:59 Last Admin: 09/01/18 05:17 Dose: 1.5 mls/min Documented by: [id number] Sodium Chloride (Nss 1000ml) 1,000 mls @ 60 mls/hr IV .[id number] MILY Stop: 10/01/18 04:30 Last Infusion: 09/01/18 12:25 Dose: 0 mls/hr Documented by: [id number] Infusion: 09/01/18 11:43 Dose: 0 mls/hr Documented by: [id number] Admin: 09/01/18 04:59 Dose: 80 mls/hr Documented by: [id number] Vancomycin HCl 1,000 mg/ (Sodium Chloride) 270 mls @ 125 mls/hr IV Q14H MILY; Protocol Stop: 09/08/18 17:59 Last Infusion: 09/02/18 10:37 Dose: 0 mls/hr Documented by: [id number] Admin: 09/02/18 08:01 Dose: 125 mls/hr Documented by: [id number] Infusion: 09/01/18 19:30 Dose: 0 mls/hr Documented by: [id number] Admin: 09/01/18 17:19 Dose: 125 mls/hr Documented by: [id number] Vancomycin HCl 1,750 mg/ (Sodium Chloride) 535 mls @ 200 mls/hr IV TODAY@0500 ONE Stop: 09/01/18 07:40 Last Infusion: 09/01/18 07:47 Dose: 0 mls/hr Documented by: [id number] Admin: 09/01/18 05:16 Dose: 200 mls/hr Documented by: [id number] Valproic Acid 500 mg/ Dextrose 55 mls @ 55 mls/hr IV Q6H MILY Stop: 10/01/18 09:59 Last Infusion: 09/01/18 11:43 Dose: 0 mls/hr Documented by: [id number] Admin: 09/01/18 10:19 Dose: 55 mls/hr Documented by: [id number] Furosemide 20 mg/ Syringe 2 mls @ 4 mls/min IV DAILY MILY Stop: 10/01/18 10:29 Last Admin: 09/01/18 11:42 Dose: 4 mls/min Documented by: [id number] Methylprednisolone 40 mg/ (Syringe) 0.64 mls @ 1.5 mls/min IV Q12H MILY Stop: 10/01/18 15:59 Last Admin: 09/02/18 03:54 Dose: 1.5 mls/min Documented by: [id number] Admin: 09/01/18 15:25 Dose: 1.5 mls/min Documented by: [id number] Piperacillin Sod/Tazobactam (Sod 3.375 gm/ Dextrose) 115 mls @ 230 mls/hr IV NOW ONE; Protocol Stop: 09/01/18 11:29 Last Infusion: 09/01/18 12:17 Dose: 0 mls/hr Documented by: [id number] Admin: 09/01/18 11:42 Dose: 230 mls/hr Documented by: [id number] Lorazepam (Ativan) Confirm Administered Dose 2 mg .ROUTE .STK-MED ONE Stop: 08/31/18 22:23 Last Admin: 08/31/18 22:34 Dose: 2 mg Documented by: [id number] Miscellaneous (Order Awaiting Action) 1 ea N/A DAILY MILY Stop: 10/01/18 08:59 Last Admin: 09/02/18 08:09 Dose: 1 ea Documented by: [id number] Admin: 09/01/18 09:02 Dose: Not Given Documented by: [id number] Miscellaneous (Order Awaiting Action) 1 ea N/A DAILY MILY Stop: 10/01/18 08:59 Last Admin: 09/02/18 08:09 Dose: 1 ea Documented by: [id number] Admin: 09/01/18 09:02 Dose: Not Given Documented by: [id number] Medical Decision Making Differential Diagnosis Differential diagnosis: Etiologies such as infection, hypoglycemia, electrolyte abnormalities, cardiac sources, intracerebral event, trauma, toxicologic, neurologic, as well as others were entertained. Medical Records Attestation: I reviewed the patient's medical records. Home Medications Current Medication List: was personally reviewed by me Laboratory Data Attestation: I reviewed the patient's lab results. Result diagrams: 09/04/18 06:36 09/03/18 05:50 Lab Results 08/31/18 08/31/18 08/31/18 Range/Units 22:38 22:38 22:38 WBC 20.84 H (4.8-10.8) K/uL RBC 3.67 L (4.2-5.4) M/uL Hgb 12.0 (12.0-16.0) g/dL Hct 38.4 (37-47) % MCV 104.6 H (80-100) fL MCH 32.7 (25-34) pg MCHC 31.3 L (32-36) g/dL RDW Std Deviation 58.3 H (36.4-46.3) fL RDW Coeff of Delmer 15.2 H (11.5-14.5) % Plt Count 257 D (130-400) K/uL MPV 8.8 (7.4-10.4) fL Immature Gran % (Auto) % Neut % (Auto) % Lymph % (Auto) % Ramsey % (Auto) % Eos % (Auto) % Baso % (Auto) % Immature Gran # (Auto) (0.00-0.02) K/uL Neut # (Auto) (1.4-6.5) K/uL Lymph # (Auto) (1.2-3.4) K/uL Ramsey # (Auto) (0.11-0.59) K/uL Eos # (Auto) (0-0.5) K/uL Baso # (Auto) (0-0.2) K/uL Absolute Nucleated RBC 0.07 H (0-0) K/uL Nucleated RBC % (auto) 0.3 % Neutrophils % (Manual) 56.2 % Lymphocytes % (Manual) 20.2 % Monocytes % (Manual) 6.1 % Metamyelocytes % (Man) 11.4 % Myelocytes % (Man) 6.1 % Neutrophils # (Manual) 11.71 H (1.4-6.5) K/uL Total Absolute Neuts 11.71 H (1.4-6.5) K/uL Lymphocytes # (Manual) 4.21 H (1.2-3.4) K/uL Total Abs Lymphocytes 4.21 H (1.2-3.4) K/uL Monocytes # (Manual) 1.27 H (0.11-0.59) K/uL Metamyelocytes # (Man) 2.38 H (0-0) K/uL Myelocytes # (Manual) 1.27 H (0-0) K/uL Toxic Vacuolation 1+ RBC Morphology PT 12.9 H (9.0-12.0) Seconds INR 1.3 H (0.9-1.1) APTT 27.1 (21.0-31.0) Seconds PTT Ratio 1.0 Sodium 142 (136-145) mmol/L Potassium 4.7 (3.5-5.1) mmol/L Chloride 107 (98-107) mmol/L Carbon Dioxide 30 (21-32) mmol/L Anion Gap 5.0 (3-11) BUN 48 H (7-18) mg/dl Creatinine 0.94 (0.6-1.2) mg/dl Est Cr Clr Drug Dosing 51.8 ml/min Est GFR ( Amer) 70.2 Est GFR (Non-Af Amer) 60.6 BUN/Creatinine Ratio 50.7 H (10-20) Glucose 157 H (70-99) mg/dl POC Glucose (70-99) Calcium 8.8 (8.5-10.1) mg/dl Magnesium 1.9 (1.8-2.4) mg/dl Total Bilirubin 0.3 (0.2-1) mg/dl AST 39 H (15-37) U/L ALT 23 (12-78) U/L Alkaline Phosphatase 68 (45-117) U/L Troponin I < 0.015 (0-0.045) ng/ml Total Protein 6.3 L (6.4-8.2) gm/dl Albumin 2.9 L (3.4-5.0) gm/dl Globulin 3.4 (2.5-4.0) gm/dl Albumin/Globulin Ratio 0.9 (0.9-2) Procalcitonin (0-0.5) ng/ml Urine Color Urine Appearance (Clear) Urine pH (4.5-7.5) Ur Specific [place] (1.000-1.030) Urine Protein (Negative) Urine Glucose (UA) (Negative) Urine Ketones (Negative) Urine Blood (Negative) Urine Nitrite (Negative) Urine Bilirubin (Negative) Urine Urobilinogen (Negative) Ur Leukocyte Esterase (Negative) Nasal Screen MRSA (PCR) (Negative) Valproic Acid (50-100) mcg/ml 08/31/18 08/31/18 09/01/18 Range/Units 22:55 23:30 04:46 WBC (4.8-10.8) K/uL RBC (4.2-5.4) M/uL Hgb (12.0-16.0) g/dL Hct (37-47) % MCV (80-100) fL MCH (25-34) pg MCHC (32-36) g/dL RDW Std Deviation (36.4-46.3) fL RDW Coeff of Delmer (11.5-14.5) % Plt Count (130-400) K/uL MPV (7.4-10.4) fL Immature Gran % (Auto) % Neut % (Auto) % Lymph % (Auto) % [place] % (Auto) % Eos % (Auto) % Baso % (Auto) % Immature Gran # (Auto) (0.00-0.02) K/uL Neut # (Auto) (1.4-6.5) K/uL Lymph # (Auto) (1.2-3.4) K/uL [place] # (Auto) (0.11-0.59) K/uL Eos # (Auto) (0-0.5) K/uL Baso # (Auto) (0-0.2) K/uL Absolute Nucleated RBC (0-0) K/uL Nucleated RBC % (auto) % Neutrophils % (Manual) % Lymphocytes % (Manual) % Monocytes % (Manual) % Metamyelocytes % (Man) % Myelocytes % (Man) % Neutrophils # (Manual) (1.4-6.5) K/uL Total Absolute Neuts (1.4-6.5) K/uL Lymphocytes # (Manual) (1.2-3.4) K/uL Total Abs Lymphocytes (1.2-3.4) K/uL Monocytes # (Manual) (0.11-0.59) K/uL Metamyelocytes # (Man) (0-0) K/uL Myelocytes # (Manual) (0-0) K/uL Toxic Vacuolation RBC Morphology PT 14.0 H (9.0-12.0) Seconds INR 1.4 H (0.9-1.1) APTT (21.0-31.0) Seconds PTT Ratio Sodium (136-145) mmol/L Potassium (3.5-5.1) mmol/L Chloride (98-107) mmol/L Carbon Dioxide (21-32) mmol/L Anion Gap (3-11) BUN (7-18) mg/dl Creatinine (0.6-1.2) mg/dl Est Cr Clr Drug Dosing ml/min Est GFR ( Amer) Est GFR (Non-Af Amer) BUN/Creatinine Ratio (10-20) Glucose (70-99) mg/dl POC Glucose 144 H (70-99) Calcium (8.5-10.1) mg/dl Magnesium (1.8-2.4) mg/dl Total Bilirubin (0.2-1) mg/dl AST (15-37) U/L ALT (12-78) U/L Alkaline Phosphatase (45-117) U/L Troponin I (0-0.045) ng/ml Total Protein (6.4-8.2) gm/dl Albumin (3.4-5.0) gm/dl Globulin (2.5-4.0) gm/dl Albumin/Globulin Ratio (0.9-2) Procalcitonin (0-0.5) ng/ml Urine Color Yellow Urine Appearance Clear (Clear) Urine pH 5.5 (4.5-7.5) Ur Specific [place] 1.015 (1.000-1.030) Urine Protein Negative (Negative) Urine Glucose (UA) Negative (Negative) Urine Ketones Negative (Negative) Urine Blood Negative (Negative) Urine Nitrite Negative (Negative) Urine Bilirubin Negative (Negative) Urine Urobilinogen Negative (Negative) Ur Leukocyte Esterase Negative (Negative) Nasal Screen MRSA (PCR) (Negative) Valproic Acid (50-100) mcg/ml 09/01/18 09/01/18 09/01/18 Range/Units 04:46 08:56 11:16 WBC (4.8-10.8) K/uL RBC (4.2-5.4) M/uL Hgb (12.0-16.0) g/dL Hct (37-47) % MCV (80-100) fL MCH (25-34) pg MCHC (32-36) g/dL RDW Std Deviation (36.4-46.3) fL RDW Coeff of Delmer (11.5-14.5) % Plt Count (130-400) K/uL MPV (7.4-10.4) fL Immature Gran % (Auto) % Neut % (Auto) % Lymph % (Auto) % [place] % (Auto) % Eos % (Auto) % Baso % (Auto) % Immature Gran # (Auto) (0.00-0.02) K/uL Neut # (Auto) (1.4-6.5) K/uL Lymph # (Auto) (1.2-3.4) K/uL [place] # (Auto) (0.11-0.59) K/uL Eos # (Auto) (0-0.5) K/uL Baso # (Auto) (0-0.2) K/uL Absolute Nucleated RBC (0-0) K/uL Nucleated RBC % (auto) % Neutrophils % (Manual) % Lymphocytes % (Manual) % Monocytes % (Manual) % Metamyelocytes % (Man) % Myelocytes % (Man) % Neutrophils # (Manual) (1.4-6.5) K/uL Total Absolute Neuts (1.4-6.5) K/uL Lymphocytes # (Manual) (1.2-3.4) K/uL Total Abs Lymphocytes (1.2-3.4) K/uL Monocytes # (Manual) (0.11-0.59) K/uL Metamyelocytes # (Man) (0-0) K/uL Myelocytes # (Manual) (0-0) K/uL Toxic Vacuolation RBC Morphology PT (9.0-12.0) Seconds INR (0.9-1.1) APTT (21.0-31.0) Seconds PTT Ratio Sodium 143 (136-145) mmol/L Potassium 4.3 (3.5-5.1) mmol/L Chloride 107 (98-107) mmol/L Carbon Dioxide 32 (21-32) mmol/L Anion Gap 4.0 (3-11) BUN 40 H (7-18) mg/dl Creatinine 0.81 (0.6-1.2) mg/dl Est Cr Clr Drug Dosing 60.5 ml/min Est GFR ( Amer) 84.1 Est GFR (Non-Af Amer) 72.6 BUN/Creatinine Ratio 49.2 H (10-20) Glucose 78 (70-99) mg/dl POC Glucose (70-99) Calcium 8.2 L (8.5-10.1) mg/dl Magnesium (1.8-2.4) mg/dl Total Bilirubin 0.2 (0.2-1) mg/dl AST 25 (15-37) U/L ALT 16 (12-78) U/L Alkaline Phosphatase 55 (45-117) U/L Troponin I (0-0.045) ng/ml Total Protein 5.3 L (6.4-8.2) gm/dl Albumin 2.5 L (3.4-5.0) gm/dl Globulin 2.8 (2.5-4.0) gm/dl Albumin/Globulin Ratio 0.9 (0.9-2) Procalcitonin 0.22 (0-0.5) ng/ml Urine Color Urine Appearance (Clear) Urine pH (4.5-7.5) Ur Specific [place] (1.000-1.030) Urine Protein (Negative) Urine Glucose (UA) (Negative) Urine Ketones (Negative) Urine Blood (Negative) Urine Nitrite (Negative) Urine Bilirubin (Negative) Urine Urobilinogen (Negative) Ur Leukocyte Esterase (Negative) Nasal Screen MRSA (PCR) (Negative) Valproic Acid 78 (50-100) mcg/ml 09/01/18 09/02/18 09/02/18 Range/Units 11:55 05:54 05:54 WBC (4.8-10.8) K/uL RBC (4.2-5.4) M/uL Hgb (12.0-16.0) g/dL Hct (37-47) % MCV (80-100) fL MCH (25-34) pg MCHC (32-36) g/dL RDW Std Deviation (36.4-46.3) fL RDW Coeff of [place] (11.5-14.5) % Plt Count (130-400) K/uL MPV (7.4-10.4) fL Immature Gran % (Auto) % Neut % (Auto) % Lymph % (Auto) % [place] % (Auto) % Eos % (Auto) % Baso % (Auto) % Immature Gran # (Auto) (0.00-0.02) K/uL Neut # (Auto) (1.4-6.5) K/uL Lymph # (Auto) (1.2-3.4) K/uL Ramsey # (Auto) (0.11-0.59) K/uL Eos # (Auto) (0-0.5) K/uL Baso # (Auto) (0-0.2) K/uL Absolute Nucleated RBC (0-0) K/uL Nucleated RBC % (auto) % Neutrophils % (Manual) % Lymphocytes % (Manual) % Monocytes % (Manual) % Metamyelocytes % (Man) % Myelocytes % (Man) % Neutrophils # (Manual) (1.4-6.5) K/uL Total Absolute Neuts (1.4-6.5) K/uL Lymphocytes # (Manual) (1.2-3.4) K/uL Total Abs Lymphocytes (1.2-3.4) K/uL Monocytes # (Manual) (0.11-0.59) K/uL Metamyelocytes # (Man) (0-0) K/uL Myelocytes # (Manual) (0-0) K/uL Toxic Vacuolation RBC Morphology PT 17.6 H (9.0-12.0) Seconds INR 1.8 H (0.9-1.1) APTT (21.0-31.0) Seconds PTT Ratio Sodium 142 (136-145) mmol/L Potassium 4.5 (3.5-5.1) mmol/L Chloride 106 (98-107) mmol/L Carbon Dioxide 32 (21-32) mmol/L Anion Gap 4.0 (3-11) BUN 31 H (7-18) mg/dl Creatinine 0.72 (0.6-1.2) mg/dl Est Cr Clr Drug Dosing 67.9 ml/min Est GFR ( Amer) 97.0 Est GFR (Non-Af Amer) 83.7 BUN/Creatinine Ratio 42.8 H (10-20) Glucose 83 (70-99) mg/dl POC Glucose (70-99) Calcium 8.4 L (8.5-10.1) mg/dl Magnesium (1.8-2.4) mg/dl Total Bilirubin 0.2 (0.2-1) mg/dl AST 22 (15-37) U/L ALT 16 (12-78) U/L Alkaline Phosphatase 49 (45-117) U/L Troponin I (0-0.045) ng/ml Total Protein 4.9 L (6.4-8.2) gm/dl Albumin 2.3 L (3.4-5.0) gm/dl Globulin 2.6 (2.5-4.0) gm/dl Albumin/Globulin Ratio 0.9 (0.9-2) Procalcitonin (0-0.5) ng/ml Urine Color Urine Appearance (Clear) Urine pH (4.5-7.5) Ur Specific [place] (1.000-1.030) Urine Protein (Negative) Urine Glucose (UA) (Negative) Urine Ketones (Negative) Urine Blood (Negative) Urine Nitrite (Negative) Urine Bilirubin (Negative) Urine Urobilinogen (Negative) Ur Leukocyte Esterase (Negative) Nasal Screen MRSA (PCR) Positive A (Negative) Valproic Acid (50-100) mcg/ml 09/03/18 09/03/18 09/03/18 Range/Units 05:50 05:50 05:50 WBC 7.06 (4.8-10.8) K/uL RBC 3.55 L (4.2-5.4) M/uL Hgb 11.5 L (12.0-16.0) g/dL Hct 36.0 L (37-47) % MCV 101.4 H (80-100) fL MCH 32.4 (25-34) pg MCHC 31.9 L (32-36) g/dL RDW Std Deviation 56.1 H (36.4-46.3) fL RDW Coeff of Delmer 15.2 H (11.5-14.5) % Plt Count 194 (130-400) K/uL MPV 8.3 (7.4-10.4) fL Immature Gran % (Auto) 8.6 % Neut % (Auto) 43.1 % Lymph % (Auto) 30.9 % Ramsey % (Auto) 16.7 % Eos % (Auto) 0.4 % Baso % (Auto) 0.3 % Immature Gran # (Auto) 0.61 H (0.00-0.02) K/uL Neut # (Auto) 3.04 (1.4-6.5) K/uL Lymph # (Auto) 2.18 (1.2-3.4) K/uL Ramsey # (Auto) 1.18 H (0.11-0.59) K/uL Eos # (Auto) 0.03 (0-0.5) K/uL Baso # (Auto) 0.02 (0-0.2) K/uL Absolute Nucleated RBC (0-0) K/uL Nucleated RBC % (auto) % Neutrophils % (Manual) % Lymphocytes % (Manual) % Monocytes % (Manual) % Metamyelocytes % (Man) % Myelocytes % (Man) % Neutrophils # (Manual) (1.4-6.5) K/uL Total Absolute Neuts (1.4-6.5) K/uL Lymphocytes # (Manual) (1.2-3.4) K/uL Total Abs Lymphocytes (1.2-3.4) K/uL Monocytes # (Manual) (0.11-0.59) K/uL Metamyelocytes # (Man) (0-0) K/uL Myelocytes # (Manual) (0-0) K/uL Toxic Vacuolation RBC Morphology Unremarkable PT 19.8 H (9.0-12.0) Seconds INR 2.0 H (0.9-1.1) APTT (21.0-31.0) Seconds PTT Ratio Sodium 143 (136-145) mmol/L Potassium 4.3 (3.5-5.1) mmol/L Chloride 105 (98-107) mmol/L Carbon Dioxide 32 (21-32) mmol/L Anion Gap 6.0 (3-11) BUN 28 H (7-18) mg/dl Creatinine 0.77 (0.6-1.2) mg/dl Est Cr Clr Drug Dosing 64.1 ml/min Est GFR ( Amer) 89.4 Est GFR (Non-Af Amer) 77.1 BUN/Creatinine Ratio 35.6 H (10-20) Glucose 73 (70-99) mg/dl POC Glucose (70-99) Calcium 8.7 (8.5-10.1) mg/dl Magnesium (1.8-2.4) mg/dl Total Bilirubin 0.2 (0.2-1) mg/dl AST 22 (15-37) U/L ALT 15 (12-78) U/L Alkaline Phosphatase 49 (45-117) U/L Troponin I (0-0.045) ng/ml Total Protein 4.9 L (6.4-8.2) gm/dl Albumin 2.2 L (3.4-5.0) gm/dl Globulin 2.7 (2.5-4.0) gm/dl Albumin/Globulin Ratio 0.8 L (0.9-2) Procalcitonin (0-0.5) ng/ml Urine Color Urine Appearance (Clear) Urine pH (4.5-7.5) Ur Specific [place] (1.000-1.030) Urine Protein (Negative) Urine Glucose (UA) (Negative) Urine Ketones (Negative) Urine Blood (Negative) Urine Nitrite (Negative) Urine Bilirubin (Negative) Urine Urobilinogen (Negative) Ur Leukocyte Esterase (Negative) Nasal Screen MRSA (PCR) (Negative) Valproic Acid (50-100) mcg/ml 09/03/18 09/04/18 09/04/18 Range/Units 11:41 06:36 06:36 WBC 8.27 (4.8-10.8) K/uL RBC 3.58 L (4.2-5.4) M/uL Hgb 11.5 L (12.0-16.0) g/dL Hct 36.1 L (37-47) % MCV 100.8 H (80-100) fL MCH 32.1 (25-34) pg MCHC 31.9 L (32-36) g/dL RDW Std Deviation 55.2 H (36.4-46.3) fL RDW Coeff of Delmer 14.9 H (11.5-14.5) % Plt Count 216 (130-400) K/uL MPV 8.3 (7.4-10.4) fL Immature Gran % (Auto) 5.6 % Neut % (Auto) 56.2 % Lymph % (Auto) 21.0 % Ramsey % (Auto) 17.0 % Eos % (Auto) 0.1 % Baso % (Auto) 0.1 % Immature Gran # (Auto) 0.46 H (0.00-0.02) K/uL Neut # (Auto) 4.64 (1.4-6.5) K/uL Lymph # (Auto) 1.74 (1.2-3.4) K/uL Ramsey # (Auto) 1.41 H (0.11-0.59) K/uL Eos # (Auto) 0.01 (0-0.5) K/uL Baso # (Auto) 0.01 (0-0.2) K/uL Absolute Nucleated RBC (0-0) K/uL Nucleated RBC % (auto) % Neutrophils % (Manual) % Lymphocytes % (Manual) % Monocytes % (Manual) % Metamyelocytes % (Man) % Myelocytes % (Man) % Neutrophils # (Manual) (1.4-6.5) K/uL Total Absolute Neuts (1.4-6.5) K/uL Lymphocytes # (Manual) (1.2-3.4) K/uL Total Abs Lymphocytes (1.2-3.4) K/uL Monocytes # (Manual) (0.11-0.59) K/uL Metamyelocytes # (Man) (0-0) K/uL Myelocytes # (Manual) (0-0) K/uL Toxic Vacuolation 1+ RBC Morphology PT 18.2 H (9.0-12.0) Seconds INR 1.9 H (0.9-1.1) APTT (21.0-31.0) Seconds PTT Ratio Sodium (136-145) mmol/L Potassium (3.5-5.1) mmol/L Chloride (98-107) mmol/L Carbon Dioxide (21-32) mmol/L Anion Gap (3-11) BUN (7-18) mg/dl Creatinine (0.6-1.2) mg/dl Est Cr Clr Drug Dosing ml/min Est GFR ( Amer) Est GFR (Non-Af Amer) BUN/Creatinine Ratio (10-20) Glucose (70-99) mg/dl POC Glucose (70-99) Calcium (8.5-10.1) mg/dl Magnesium (1.8-2.4) mg/dl Total Bilirubin (0.2-1) mg/dl AST (15-37) U/L ALT (12-78) U/L Alkaline Phosphatase (45-117) U/L Troponin I (0-0.045) ng/ml Total Protein (6.4-8.2) gm/dl Albumin (3.4-5.0) gm/dl Globulin (2.5-4.0) gm/dl Albumin/Globulin Ratio (0.9-2) Procalcitonin (0-0.5) ng/ml Urine Color Urine Appearance (Clear) Urine pH (4.5-7.5) Ur Specific [place] (1.000-1.030) Urine Protein (Negative) Urine Glucose (UA) (Negative) Urine Ketones (Negative) Urine Blood (Negative) Urine Nitrite (Negative) Urine Bilirubin (Negative) Urine Urobilinogen (Negative) Ur Leukocyte Esterase (Negative) Nasal Screen MRSA (PCR) (Negative) Valproic Acid 104 H (50-100) mcg/ml Imaging Data Radiologist's Impression: Radiology results as stated below per my review and the radiologist's interpretation: XR chest 1V portable HISTORY: 73 years-old Female CVA acute seizure with strokelike symptoms COMPARISON: Chest radiograph 08/29/2018, CTA chest 08/26/2018 TECHNIQUE: Portable AP view of the chest FINDINGS: Cardiac silhouette is mildly enlarged, unchanged. Calcification of the thoracic aortic arch. No pneumothorax, overt pulmonary edema or large pleural effusion. Emphysema. Improved aeration of the lung bases with persistent patchy bibasilar predominant alveolar densities. Additional ill-defined opacities of the lateral right midlung. Degenerative changes of the shoulders and spine. IMPRESSION: 1. Cardiomegaly without overt pulmonary edema. 2. Persistent ill-defined bibasilar predominant alveolar opacities suggestive of pneumonitis. 3. Emphysema. The above report was generated using voice recognition software. It may contain grammatical, syntax or spelling errors. Electronically signed by: Michael Pedro M.D. 08/31/2018 10:[address] head/brain wo con CLINICAL HISTORY: 73 years-old Female with Stroke evaluation . Acute strokelike symptoms TECHNIQUE: Multiple axial CT images of the head were obtained without contrast. A dose lowering technique was utilized adhering to the principles of ALARA. CT DOSE: 691.05 mGy.cm COMPARISON: CT head 07/08/2018, brain MRI 01/24/2018. FINDINGS: No acute intracranial hemorrhage, midline shift, intra-axial mass, hydrocephalus, territorial ischemia or abnormal extra-axial collection. Partially calcified AVM about the medial aspect of the superior left cerebral he misphere redemonstrated, 2.8 x 1.9 cm. Mild surrounding vasogenic edema redemonstrated. Study is mildly motion degraded. Cerebral vascular calcifications noted. The calvarium is intact. The paranasal sinuses, mastoid air cells, and middle ear cavities are clear. IMPRESSION: 1. No acute intracranial abnormality. 2. Partially calcified AVM adjacent to the superior medial aspect of the left hemisphere appears unchanged. The above report was generated using voice recognition software. It may contain grammatical, syntax or spelling errors. Electronically signed by: Michael Pedro M.D. 08/31/2018 10:[address] scan of the head reveals no acute findings. Left frontoparietal calcified lesion with adjacent gliosis versus edema, unchanged. Radiologist: Sushil Clarke MD 02:35 ECG Data Attestation: I personally reviewed and interpreted this ECG as follows: Indication: other (seizure) Rate (beats per minute): 121 Rhythm: sinus tachycardia Findings: + other (poor quality baseline, low voltage, likely incomplete RBBB) Comparison ECG Date: from (08/25/17) Change: the following changes noted (interventricular conduction delay is new ) Blood Pressure Blood Pressure Findings: Normal blood pressure MDM Narrative This pt was evaluated and appeared to be critically ill, on NRB and unresponsive. She is found to have subtle BUE twitching and rightward gaze. A nasopharyngeal airway was inserted. Ativan 2 mg IV was administered with im provement. CT head performed and reveals no acute abnl, calcified AVM noted. Pt was reevaluated and is felt to be seizing with continues rightward gaze. Additional 2 mg of IV ativan was given which addressed the gaze preference. Pt was loaded with keppra 1 gm IV. CXR reveals persistent pneumonitis. Pt has been tx for this, on doxy currently. INR 1.3. Pt was hydrated with NSS. Clinically pt seemed to stop seizing. [facility]. Impression & Plan Seizure, Acute alteration in mental status, AVM (arteriovenous malformation) brain, Pneumonitis Critical Care Time I have personally spent greater than 60 minutes of critical care time in the direct management of this patient. This includes bedside care, interpretation of diagnostic studies, and testing, discussion with consultants, patient, and family members, and other required patient management activities. This 60 minutes is in excess of all separately billable procedures. Critical Care Time: Yes Total Critical Care Time: 60 Discharge Plan Visit Data *Final* Discharge Date/Time: 09/01/18 04:12 Chief Complaint: Seizure Stated Complaint: WEAKNESS ED Provider: Palma Kirby Discharge Problem: Seizure, Acute alteration in mental status, AVM (arteriovenous malformation) brain, Pneumonitis Patient Disposition: Admitted As Inpatient Discharge Instructions Interventions: ED Discharge Assessment Last Done: 09/01/18 04:12 The scribe's documentation has been prepared under my direction and personally reviewed by me in its entirety. I confirm that the note above accurately reflects all work, treatment, procedures, and medical decision making performed by me.
--- NOTE | 2018-09-01 03:25 | History & Physical Report ---
Date of Service September 01, 2018 Assessment & Plan (1) Sepsis: (2) HCAP (healthcare-associated pneumonia): (3) Seizures: (4) Leukocytosis: (5) Non-ischemic cardiomyopathy: (6) DVT (deep venous thrombosis): (7) detention current use of anticoagulants with INR goal of 2.0-3.0: (8) Vasogenic edema: (9) Obesity (BMI 30.0-34.9): (10) AVM (arteriovenous malformation) brain: (11) AA (alcohol abuse): (12) COPD (chronic obstructive pulmonary disease): History of Present Illness Chief Complaint: Seizure Primary Care Provider: [facility] 73-year-old female with a past medical history of right thigh hematoma, nonischemic cardiomyopathy, obesity with a BMI 31, DVT, AVM, seizure disorder, alcoholism, COPD who presents the emergency room tonight with another seizure. Per EMS, the patient's family originally called EMS due to the patient being confused and was talking at first, but they she began to have another seizure. The patient was seen recently at [facility] for PNA and is currently on abx and Coumadin. 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 He adds that the patient has a history of seizures and was intubated the last time for seizures. Assessment and Plan Seizure Sepsis Pneumonia Altered mental status Leukocytosis Nonischemic cardia myopathy Obesity with BMI 31 History of DVT AVM which is calcified History of seizures Alcoholism COPD Vancomycin and cefepime have been initiated, nebulizers, IV steroids, continue outpatient medications where appropriate, IV steroids, neurology evaluation ROS-offers no history, thrashing around on the bed Physical Exam Gen-nonverbal and agitated NAD, Afebrile Head-NCAT, EOMI, PERRLA, Anicteric Sclera, No Posterior Pharyngeal Erythema Neck-Supple, No JVD, No Thyromegaly, No Masses, No LAD, No Bruits Lungs-Clear to Auscultation Bilaterally, No Rales, No Rhonchi, No Wheezing, No Crepitus Chest-No S4, +S1, +S2, No S3, No Murmurs, No Rubs, No Gallops, No Ectopy Abdomen-Soft, Bowel Sounds Present, Non Tender, Non Distended, No Hepatomegaly, No Splenomegaly, No Palpable Masses, No Rebound, No Rigidity, No Guarding Musculoskeletal-Full Range of Motion Bilaterally, No CVAT Extremities-No Cyanosis, No Clubbing, 2+ Edema Nuero-Cranial Nerves II-XII grossly intact, Motor WNL, DTRs WNL, Strength WNL, No Focal Psych-agitated PMH-right thigh hematoma, nonischemic cardiomyopathy, obesity with BMI 31, DVT, AVM right side of her brain, seizure disorder, alcoholism, COPD PSH-appendectomy, cataract FH-Family history of CVA, CAD SH-former smoker, abuses alcohol, history of substance abuse resides at [facility] Meds reviewed and Reconciled Labs Reviewed Allergies Allergy/AdvReac Type Severity Reaction Status Date / Time Sulfa (Sulfonamide Allergy Mild rash Verified 08/31/18 23:57 Antibiotics) alcohol Allergy Unknown Recovering Verified 08/31/18 23:57 Alcoholic Opioids - Morphine Analogues AdvReac HISTORY OF Verified 08/31/18 23:57 ADDICTION Home Medications Home Medications Medication Instructions Recorded Confirmed Type Incruse Ellipta 1 inh INHALATION DAILY 04/11/18 09/01/18 History aspirin [Aspir-81] 81 mg PO DAILY 04/11/18 09/01/18 History acetaminophen 650 mg PO Q6H PRN MDD 3G 07/30/18 09/01/18 History Breo Ellipta 1 inh INHALATION DAILY 30 Days #1 08/30/18 09/01/18 Rx ea divalproex 1,000 mg PO Q12H 30 Days #60 tab 08/30/18 09/01/18 Rx furosemide 40 mg PO BID 30 Days #60 tab 08/30/18 09/01/18 Rx ipratropium bromide 2 puff INHALATION Q2H PRN 30 Days 08/30/18 09/01/18 Rx #1 gm metoprolol succinate 25 mg PO DAILY 30 Days #30 tab 08/30/18 09/01/18 Rx potassium chloride [Klor-Con M10] 10 meq PO TID 30 Days #90 tab 08/30/18 09/01/18 Rx prednisone 20 mg PO DAILY 5 Days #5 tab 08/30/18 09/01/18 Rx warfarin [Coumadin] 5 mg PO DAILY 30 Days #30 tab 08/30/18 09/01/18 Rx doxycycline hyclate [Vibramycin] 100 mg PO BID 08/31/18 09/01/18 History Past Med/Surg History Medical History Hematoma of right thigh (Resolved) Non-ischemic cardiomyopathy (Chronic) Obesity (BMI 30.0-34.9) (Chronic) DVT (deep venous thrombosis) (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 with INR goal of 2.0-3.0 (Chronic) Vasogenic edema (Resolved) AVM (arteriovenous malformation) brain (Chronic) Seizures (Chronic) AA (alcohol abuse) (Resolved) COPD (chronic obstructive pulmonary disease) (Chronic) Surgical History History of appendectomy (Chronic) History of cataract surgery (Chronic) Family History Mother Stroke Heart disease Social History Preferred Language: Nigerian Beliefs That Will Affect Care: None marital status: Current Living Situation: Skilled Nursing Current Living Situation Comment: [facility] Feels Safe at Home: Yes Smoking Status: Former smoker Hx Alcohol Use: No Hx Substance Use: No Physical Exam Vital Signs (Past 24 Hours): Last Vital Signs Temp 37.2 C 08/31/18 23:30 Pulse 94 H 09/01/18 03:04 Resp 24 09/01/18 03:04 BP 117/79 09/01/18 03:04 Pulse Ox 97 09/01/18 03:04
[2018-09-01] MEDS ORDERED: VANCOMYCIN CONSULT ACTIVE PRN (04:31)
[2018-09-01] MEDS ORDERED: LORazepam 1 MG/2 ML VIAL IV PRN (04:31)
[2018-09-01] MEDS ORDERED: ACETAMINOPHEN 325 MG TAB PO PRN ×2 (04:31)
[2018-09-01] MEDS ORDERED: SODIUM CHLORIDE 0.9% 1000ML 1,000 ML IV SCH (04:31)
[2018-09-01] MEDS ORDERED: ONDANSETRON INJ 2 MG/ML 2 ML VIAL IV PRN (04:31)
[2018-09-01] MEDS ORDERED: VANCOMYCIN HCL 1,750 MG in SODIUM CHLORIDE 0.9% 500 ML IV ONE (05:00)
[2018-09-01] MEDS ORDERED: methylPREDNISolone 40 MG in SYRINGE 0 ML IV SCH (05:00)
[2018-09-01] MEDS ORDERED: CEFEPIME 1,000 MG in SYRINGE 0 ML IV SCH (05:00)
[2018-09-01 05:22] LABS: INR 1.4 (0.9-1.1)
[2018-09-01 05:28] LABS: Albumin Level 2.5 gm/dl (3.4-5.0); BUN Creatinine Ratio 49.2 (10-20); Calcium 8.2 mg/dl (8.5-10.1); Creatinine Clr Calc Pharmacy 60.5 ml/min; Est GFR (African American) 84.1; Est GFR (Non-African American) 72.6; Potassium 4.3 mmol/L (3.5-5.1)
[2018-09-01 05:31] LABS: Albumin Globulin Ratio 0.9 (0.9-2); Bilirubin,Total 0.2 mg/dl (0.2-1); Globulin 2.8 gm/dl (2.5-4.0); Total Protein 5.3 gm/dl (6.4-8.2)
--- NOTE | 2018-09-01 08:54 | Pharmacy Report ---
Pharmacy Abx Dose Short Note - Date of Service September 01, 2018 - Assessment & Plan Assessment 73 year old F receiving vancomycin for treatment of HCAP/sepsis. MRSA nasal swab and pct ordered. No other micro specimens/results at this point. Day # 1 of antimicrobial therapy. Plan Vancomycin * Loading dose 1750mg given @0500 * Dose of 1000 mg IV every 14 hours initiated by over night Pharmacist. Will continue this dosing for now. * Goal trough level : 15 to 20 mcg/mL * Trough or random level ordered for: 09/03/18 @ 1130 Pharmacy will continue to follow and will adjust dose/frequency as necessary. Thank you.
[2018-09-01] MEDS ORDERED: DIVALPROEX EXTENDED RELEASE 500 MG TAB PO SCH (09:00)
[2018-09-01] MEDS: ASPIRIN 81 MG ECTAB PO SCH (09:01)
[2018-09-01] MEDS: METOPROLOL SUCC 25MG EXT REL TAB PO SCH (09:02)
[2018-09-01] MEDS: POTASSIUM CHLORIDE 10 MEQ TABCR PO SCH ×4 (09:02→23:58)
--- NOTE | 2018-09-01 09:05 | CT Scan Report ---
CT OF THE HEAD WITHOUT CONTRAST CLINICAL HISTORY: AMS, change from previous COMPARISON STUDY: Head CT July 08, 2018 and August 31, 2018. CT DOSE: 537.48 mGy.cm TECHNIQUE: Helical axial images of the head were obtained without IV contrast. Automated exposure con trol was utilized for the study. A dose lowering technique was utilized adhering to the principles o f ALARA. FINDINGS: Exam is mildly compromised by motion artifact. A 3.7 x 2 cm left frontoparietal partially c alcified mass is unchanged. Exam of January 24, 2018. Mild adjacent hypodensities unchanged. Ventricul ar system is stable. The basilar cisterns are patent. There are no extra-axial collections. No signif icant calvarial abnormalities. There is mild ethmoid sinus mucosal thickening. IMPRESSION: 1. No change in appearance of the brain. 2. Stable 3.7 x 2 cm partially calcified left frontoparietal lesion which favors an AVM. Electronically signed by: Shin Larose M.D. 09/01/2018 9:04 AM
[2018-09-01] MEDS ORDERED: CONSULT PHARMACY STA (09:37)
[2018-09-01] MEDS ORDERED: VALPROATE SOD 500 MG in DEXTROSE 5% 50 ML IV SCH (10:00)
[2018-09-01] MEDS: HEPARIN SOD 5,000 UNIT/0.5 ML VIAL SQ SCH ×2 (10:19→21:01)
[2018-09-01] MEDS ORDERED: FUROSEMIDE 20 MG in SYRINGE 0 ML IV SCH (10:30)
[2018-09-01] MEDS ORDERED: PIPERACILL/TAZOBAC CONSULT ACTIVE PRN (10:36)
[2018-09-01] MEDS ORDERED: PIPERACILLIN/TAZOBACTAM 3.375 GM in DEXTROSE 5% 100 ML IV ONE (11:00)
--- NOTE | 2018-09-01 11:05 | Communication Note ---
Date of Service: September 01, 2018 I saw Kathy today in the company of her and discussed her case with the ICU staff. She has been readmitted for breakthrough seizures originating in the left hemisphere with now a post seizure confusional state and with right hemiparesis is beginning to resolve. She is on Depakote but was also recently on antibiotics and has now been placed on additional antibiotics acting on the assumption that he may be septic. I refer the reader to the dictated history and physical and to the dictated consultation note I just completed. At this point I am simply recommending that we increase the Depakote to 625 mg intravenously every 6 hours and that we obtain a Depakote level today and then again in 2 days just to see where it may fall. Long-term management may require additional new anticonvulsant cessation of Keppra which was an agent was actually quite effective but was producing some irritability. We may be able to reintroduce this at lower doses with less behavioral issues when used in combination with the Depakote. This remains an outpatient decision certainly no major change of anticonvulsants is going to occur during this acute hospitalization and lesser seizures proved to be very difficult to control. Augusto Neri MD
--- NOTE | 2018-09-01 12:43 | Consultation Report ---
DATE OF CONSULTATION: 09/01/2018 HISTORY OF PRESENT ILLNESS: Kathy is 73 years old, is well known to our service and to the neurosurgical and neuroradiation oncology service at [place]. She has a left hemispheric arteriovenous malformation which has been treated with radiation. Developed vasogenic edema and actually presented with seizures, but subsequent to the radiation and development of edema, these have been very difficult to control. 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 She is currently in the unit, is receiving Depakote 500 mg IV every 6 hours, which is compatible with her dose of 1000 mg extended release twice a day and neurology has been called to evaluate her. Other issues include a recent pneumonitis treated with various antibiotics and then sent home. We do not know what effect the various antibiotics may have had on her anticonvulsant levels as no anticonvulsant level was drawn on admission. She has been admitted now for possible sepsis, healthcare-associated pneumonia, seizures, leukocytosis, and has chronic issues with a nonischemic cardiomyopathy, DVT, long-term anticoagulation use, vasogenic edema, obesity, AVM, history of alcohol abuse, COPD and chronic hypoalbuminemia with peripheral edema, which was an issue last admission addressed by Karena Ford and Dr. Claudio Connell. I refer the reader to their prior neurologic notes. It was at that point a lot of discussion was held regarding current anticonvulsant therapy. Unbound Depakote levels were obtained. She was at [facility] for a while. A small breakthrough seizure apparently occurred there, but she then developed a pneumonia and we were not involved in that particular aspect of her care and have only gotten re-involved now following the breakthrough seizures. PAST MEDICAL HISTORY: As outlined above. HOME MEDICATIONS: Apparently include some antibiotics. Now she is on vancomycin, cefepime, nebulizers, IV steroids and is on Depakote 500 mg IV every 6 hours. ALLERGIES: SHE CLAIMS ALLERGIES TO SULFA, ALCOHOL, AND OPIOIDS AND KEPPRA MADE HER IRRITABLE, BUT HER TODAY FEELS THAT SHE WAS REALLY GETTING TO TOLERATE THIS AT THE TIME WE BEGAN TO STOP IT. HOME MEDICATIONS: Include Ellipta, aspirin, acetaminophen, Depakote 1000 twice a day, furosemide, ipratropium bromide, metoprolol, potassium, prednisone, warfarin, and doxycycline which is the only listed antibiotic. PAST SURGICAL HISTORY: Includes the AVM radiation, prior hematoma of the right side and appendectomy and some cataract surgery. FAMILY HISTORY: Positive for stroke and heart disease. SOCIAL HISTORY: Reveals her to be , living with her . She is a nonsmoker, former consumer of ethanol. Apparently this was cut down quite a bit. She is no longer at [facility] apparently, but was there briefly prior to her admission for pneumonia and then returned home. PHYSICAL EXAMINATION: VITAL SIGNS: Blood pressure 117/79, pulse was 94. She was afebrile at 37.2, oximetry was 97%. GENERAL: She was lethargic, very poorly conversant, appeared to be chronically ill. Had no gross abnormalities on exam of the head, eyes, ears, nose and throat, cardiovascular, pulmonary, gastrointestinal, genitourinary, or musculoskeletal systems other than her chronic peripheral edema. NEUROLOGIC EXAMINATION: Today reveals her to be again lethargic. She will make eye contact. Her speech is hesitant. I am not sure if the content is accurate. Her states that this is improved from yesterday when she was pretty densely aphasic. She seems to have a right upper motor neuron facial asymmetry, a right hemiparesis type of picture which is mild, has some tremulousness of both upper extremities which she attributes to the Depakote. Her exam was very difficult otherwise. She was sitting in a chair, slumping to the right, and I really could not municipal court judge reflex testing accurately nor can I get a good level of cooperation of test strength or sensation. ASSESSMENT AND PLAN: It appears that there has been a series of breakthrough seizures here. I do not know if this reflects the effects of some of the antibiotics she received during her recent hospitalization for pneumonia interacting with her Depakote. We do not have a Depakote level on admission. I am going to obtain one now to see where we are on her current dosage. I am going to increase the dose to 625 mg IV q. 6 hours with the goal to probably increase her to 1500 mg twice a day and check levels on an outpatient basis. Depakote has not proven to be an ideal anticonvulsant, it is not adequately controlling her seizures. We may end up revisiting Chris adding it back to the Depakote to see if she can tolerate the drug behaviorally and whether it improves her seizure control, but for now while there are issues regarding potential sepsis, etc., antibiotics on board, I do not think we are going to start changing anticonvulsants. I am simply going to increase the Depakote and follow levels along. I will probably check another level of the Depakote on Monday or Monday after we have established a new steady state on the increased dose. MTDD
[2018-09-01] MEDS: WARFARIN SOD 5 MG TAB PO SCH (15:20)
[2018-09-01] MEDS: VALPROATE SOD IV SCH ×2 (15:24→22:28)
[2018-09-01] MEDS: DEXTROSE 5% IV SCH ×2 (15:24→22:28)
[2018-09-01] MEDS: methylPREDNISolone 40 MG in SYRINGE 0 ML IV SCH (15:25)
--- NOTE | 2018-09-01 16:48 | Hospitalist Progress Note ---
Date of Service September 01, 2018 Assessment & Plan (1) Seizure: (+) breakthrough seizures neurologist consulted now in IV Depakote plan to transition to increased PO Depakote tomorrow (2) Acute alteration in mental status: secondary to above CT head no acute process (3) Sepsis: (4) HCAP (healthcare-associated pneumonia): recently admitted, discharged on Doxycycline (+) new RML infiltrates in addition to lower lobe infiltrates discharged on Doxycycline (+) nasal MRSA Vanco started, changed Cefepime to Zosyn IV continue nebs, Solumedrol taper monitor (5) Non-ischemic cardiomyopathy: Lasix IV 20mg given today monitor crea while on vanco (6) Obesity (BMI 30.0-34.9): (7) DVT (deep venous thrombosis): (8) halfway current use of anticoagulants with INR goal of 2.0-3.0: INR subtherapeutic continue coumadin + heparin SQ monitor INR (9) AVM (arteriovenous malformation) brain: stable neuro consulted Disposition will need PT/OT lives with her at home Subjective ff up for breakthrough seizures, pneumonia seen with her at the bedside patient is confused, non verbal but awake, nods head declines to eat or take her pills not in distress her reports cough, and that patient still requires oxygen at home denies other symptoms Physical Exam Vital Signs (Past 24 Hours): Last Vital Signs Temp 36.7 C 09/01/18 15:12 Pulse 84 09/01/18 15:12 Resp 21 09/01/18 15:12 BP 112/81 09/01/18 15:12 Pulse Ox 99 09/01/18 15:12 Physical Exam: General- confused, not in distress, speaks in sentences with no effort or accessory muscle use Eyes- anicteric Neck- no JVD Lungs- mild rhonchi at the bases, no wheezing Heart- normal rate, regular rhythm; no murmurs Abdomen- normal bowel sounds, nondistended, soft, nontender Extremities- grade 1-2 lower lege sulma, no calf tenderness Neuro- alert, confused; no gross focal neurologic deficits Skin- warm & dry Results & Data Laboratory Results Laboratory Results - last 24 hr 08/31/18 08/31/18 08/31/18 22:38 22:38 22:38 WBC 20.84 H RBC 3.67 L Hgb 12.0 Hct 38.4 MCV 104.6 H MCH 32.7 MCHC 31.3 L RDW Std Deviation 58.3 H RDW Coeff of Delmer 15.2 H Plt Count 257 D MPV 8.8 Absolute Nucleated RBC 0.07 H Nucleated RBC % (auto) 0.3 Neutrophils % (Manual) 56.2 Lymphocytes % (Manual) 20.2 Monocytes % (Manual) 6.1 Metamyelocytes % (Man) 11.4 Myelocytes % (Man) 6.1 Neutrophils # (Manual) 11.71 H Total Absolute Neuts 11.71 H Lymphocytes # (Manual) 4.21 H Total Abs Lymphocytes 4.21 H Monocytes # (Manual) 1.27 H Metamyelocytes # (Man) 2.38 H Myelocytes # (Manual) 1.27 H Toxic Vacuolation 1+ PT 12.9 H INR 1.3 H APTT 27.1 PTT Ratio 1.0 Sodium 142 Potassium 4.7 Chloride 107 Carbon Dioxide 30 Anion Gap 5.0 BUN 48 H Creatinine 0.94 Est Cr Clr Drug Dosing 51.8 Est GFR ( Amer) 70.2 Est GFR (Non-Af Amer) 60.6 BUN/Creatinine Ratio 50.7 H Glucose 157 H POC Glucose Calcium 8.8 Magnesium 1.9 Total Bilirubin 0.3 AST 39 H ALT 23 Alkaline Phosphatase 68 Troponin I < 0.015 Total Protein 6.3 L Albumin 2.9 L Globulin 3.4 Albumin/Globulin Ratio 0.9 Procalcitonin Urine Color Urine Appearance Urine pH Ur Specific [place] Urine Protein Urine Glucose (UA) Urine Ketones Urine Blood Urine Nitrite Urine Bilirubin Urine Urobilinogen Ur Leukocyte Esterase Nasal Screen MRSA (PCR) Valproic Acid 08/31/18 08/31/18 09/01/18 22:55 23:30 04:46 WBC RBC Hgb Hct MCV MCH MCHC RDW Std Deviation RDW Coeff of [place] Plt Count MPV Absolute Nucleated RBC Nucleated RBC % (auto) Neutrophils % (Manual) Lymphocytes % (Manual) Monocytes % (Manual) Metamyelocytes % (Man) Myelocytes % (Man) Neutrophils # (Manual) Total Absolute Neuts Lymphocytes # (Manual) Total Abs Lymphocytes Monocytes # (Manual) Metamyelocytes # (Man) Myelocytes # (Manual) Toxic Vacuolation PT 14.0 H INR 1.4 H APTT PTT Ratio Sodium Potassium Chloride Carbon Dioxide Anion Gap BUN Creatinine Est Cr Clr Drug Dosing Est GFR ( Amer) Est GFR (Non-Af Amer) BUN/Creatinine Ratio Glucose POC Glucose 144 H Calcium Magnesium Total Bilirubin AST ALT Alkaline Phosphatase Troponin I Total Protein Albumin Globulin Albumin/Globulin Ratio Procalcitonin Urine Color Yellow Urine Appearance Clear Urine pH 5.5 Ur Specific [place] 1.015 Urine Protein Negative Urine Glucose (UA) Negative Urine Ketones Negative Urine Blood Negative Urine Nitrite Negative Urine Bilirubin Negative Urine Urobilinogen Negative Ur Leukocyte Esterase Negative Nasal Screen MRSA (PCR) Valproic Acid 09/01/18 09/01/18 09/01/18 04:46 08:56 11:16 WBC RBC Hgb Hct MCV MCH MCHC RDW Std Deviation RDW Coeff of [place] Plt Count MPV Absolute Nucleated RBC Nucleated RBC % (auto) Neutrophils % (Manual) Lymphocytes % (Manual) Monocytes % (Manual) Metamyelocytes % (Man) Myelocytes % (Man) Neutrophils # (Manual) Total Absolute Neuts Lymphocytes # (Manual) Total Abs Lymphocytes Monocytes # (Manual) Metamyelocytes # (Man) Myelocytes # (Manual) Toxic Vacuolation PT INR APTT PTT Ratio Sodium 143 Potassium 4.3 Chloride 107 Carbon Dioxide 32 Anion Gap 4.0 BUN 40 H Creatinine 0.81 Est Cr Clr Drug Dosing 60.5 Est GFR ( Amer) 84.1 Est GFR (Non-Af Amer) 72.6 BUN/Creatinine Ratio 49.2 H Glucose 78 POC Glucose Calcium 8.2 L Magnesium Total Bilirubin 0.2 AST 25 ALT 16 Alkaline Phosphatase 55 Troponin I Total Protein 5.3 L Albumin 2.5 L Globulin 2.8 Albumin/Globulin Ratio 0.9 Procalcitonin 0.22 Urine Color Urine Appearance Urine pH Ur Specific [place] Urine Protein Urine Glucose (UA) Urine Ketones Urine Blood Urine Nitrite Urine Bilirubin Urine Urobilinogen Ur Leukocyte Esterase Nasal Screen MRSA (PCR) Valproic Acid 78 09/01/18 11:55 WBC RBC Hgb Hct MCV MCH MCHC RDW Std Deviation RDW Coeff of [place] Plt Count MPV Absolute Nucleated RBC Nucleated RBC % (auto) Neutrophils % (Manual) Lymphocytes % (Manual) Monocytes % (Manual) Metamyelocytes % (Man) Myelocytes % (Man) Neutrophils # (Manual) Total Absolute Neuts Lymphocytes # (Manual) Total Abs Lymphocytes Monocytes # (Manual) Metamyelocytes # (Man) Myelocytes # (Manual) Toxic Vacuolation PT INR APTT PTT Ratio Sodium Potassium Chloride Carbon Dioxide Anion Gap BUN Creatinine Est Cr Clr Drug Dosing Est GFR ( Amer) Est GFR (Non-Af Amer) BUN/Creatinine Ratio Glucose POC Glucose Calcium Magnesium Total Bilirubin AST ALT Alkaline Phosphatase Troponin I Total Protein Albumin Globulin Albumin/Globulin Ratio Procalcitonin Urine Color Urine Appearance Urine pH Ur Specific [place] Urine Protein Urine Glucose (UA) Urine Ketones Urine Blood Urine Nitrite Urine Bilirubin Urine Urobilinogen Ur Leukocyte Esterase Nasal Screen MRSA (PCR) Positive A Valproic Acid
[2018-09-01] MEDS: PIPERACILLIN/TAZOBACTAM 3.375 GM in DEXTROSE 5% 100 ML IV SCH ×2 (17:19→23:43)
[2018-09-01] MEDS: VANCOMYCIN HCL 1,000 MG in SODIUM CHLORIDE 0.9% 250 ML IV SCH (17:19)
[2018-09-01] MEDS: MUPIROCIN 2% OINT 22 GM TUBE SCH (21:00)
[2018-09-02] MEDS: DEXTROSE 5% IV SCH ×4 (03:54→23:07)
[2018-09-02] MEDS: methylPREDNISolone 40 MG in SYRINGE 0 ML IV SCH (03:54)
[2018-09-02] MEDS: VALPROATE SOD IV SCH ×4 (03:54→23:07)
[2018-09-02 06:25] LABS: INR 1.8 (0.9-1.1); Prothrombin Time 17.6 Seconds (9.0-12.0)
[2018-09-02 06:43] LABS: Albumin Level 2.3 gm/dl (3.4-5.0); BUN Creatinine Ratio 42.8 (10-20); Calcium 8.4 mg/dl (8.5-10.1); Creatinine Clr Calc Pharmacy 67.9 ml/min; Est GFR (Non-African American) 83.7; Potassium 4.5 mmol/L (3.5-5.1)
[2018-09-02 06:45] LABS: Albumin Globulin Ratio 0.9 (0.9-2); Bilirubin,Total 0.2 mg/dl (0.2-1); Globulin 2.6 gm/dl (2.5-4.0); Total Protein 4.9 gm/dl (6.4-8.2)
[2018-09-02] MEDS: VANCOMYCIN HCL 1,000 MG in SODIUM CHLORIDE 0.9% 250 ML IV SCH (08:01)
[2018-09-02] MEDS: PIPERACILLIN/TAZOBACTAM 3.375 GM in DEXTROSE 5% 100 ML IV SCH ×2 (08:03→15:44)
[2018-09-02] MEDS: MUPIROCIN 2% OINT 22 GM TUBE SCH ×2 (08:07→20:37)
[2018-09-02] MEDS: POTASSIUM CHLORIDE 10 MEQ TABCR PO SCH ×3 (08:08→20:38)
[2018-09-02] MEDS: HEPARIN SOD 5,000 UNIT/0.5 ML VIAL SQ SCH ×2 (08:08→20:38)
[2018-09-02] MEDS: ASPIRIN 81 MG ECTAB PO SCH ×2 (08:08→10:21)
[2018-09-02] MEDS: METOPROLOL SUCC 25MG EXT REL TAB PO SCH ×2 (08:09→10:21)
--- NOTE | 2018-09-02 10:15 | Hospitalist Progress Note ---
Date of Service September 02, 2018 Assessment & Plan (1) Seizure: (+) breakthrough seizures neurologist consulted now in IV Depakote No seizure recurrence plan to transition to increased PO Depakote (2) Acute alteration in mental status: secondary to above CT head no acute process (3) Sepsis: (4) HCAP (healthcare-associated pneumonia): recently admitted, discharged on Doxycycline (+) new RML infiltrates in addition to lower lobe infiltrates discharged on Doxycycline (+) nasal MRSA, tobacco Improving Vanco started changed to doxycycline, changed Cefepime to Zosyn IV continue nebs, Solumedrol transition to prednisone monitor (5) Non-ischemic cardiomyopathy: Lasix IV 20mg given Not in overt failure With Lasix today in light of blood pressure Reevaluate tomorrow (6) Obesity (BMI 30.0-34.9): (7) DVT (deep venous thrombosis): (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 use of anticoagulants with INR goal of 2.0-3.0: INR subtherapeutic continue coumadin + heparin SQ monitor INR (9) AVM (arteriovenous malformation) brain: stable neuro consulted Disposition will need PT/OT lives with her at home Subjective ff up for breakthrough seizures, pneumonia Seen sitting up in bed, more awake and alert, able to verbalize more words, but still confused and not oriented Denies shortness of breath, still has some coughing Course of seizures No other symptoms Physical Exam Vital Signs (Past 24 Hours): Last Vital Signs Temp 37.0 C 09/02/18 07:05 Pulse 88 09/02/18 07:05 Resp 16 09/02/18 07:05 BP 118/76 09/02/18 07:05 Pulse Ox 90 09/02/18 07:05 Physical Exam: General-not oriented, not in distress, speaks in sentences with no effort or accessory muscle use Eyes- anicteric Neck- no JVD Lungs-rhonchi bilateral bases, no wheezing, good air entry bilaterally Heart- normal rate, regular rhythm; no murmurs Abdomen- normal bowel sounds, nondistended, soft, nontender Extremities-mild lower leg edema, no calf tenderness Neuro- alert, oriented; no gross focal neurologic deficits Skin- warm & dry Results & Data Laboratory Results Laboratory Results - last 24 hr 09/02/18 09/02/18 05:54 05:54 PT 17.6 H INR 1.8 H Sodium 142 Potassium 4.5 Chloride 106 Carbon Dioxide 32 Anion Gap 4.0 BUN 31 H Creatinine 0.72 Est Cr Clr Drug Dosing 67.9 Est GFR ( Amer) 97.0 Est GFR (Non-Af Amer) 83.7 BUN/Creatinine Ratio 42.8 H Glucose 83 Calcium 8.4 L Total Bilirubin 0.2 AST 22 ALT 16 Alkaline Phosphatase 49 Total Protein 4.9 L Albumin 2.3 L Globulin 2.6 Albumin/Globulin Ratio 0.9
--- NOTE | 2018-09-02 12:18 | Communication Note ---
Date of Service: September 02, 2018 I have seen Mrs. Rodriguez today, reviewed her chart and find her to be more responsive but very slow and deliberate in her speech and to still have a mild r ight upper motor neuron paresis of the arm and face she has much less tremor today he seems to comprehend what I am saying but is very slow on the uptake and occasionally appears to be staring off into space without any tonic head or eyedeviation to either side The Depakote level prior to my increasing the dose was 78 which certainly is in the therapeutic range but not apparently in this case to be effective in preventing further seizures I am going to obtain another Depakote level tomorrow and will continue to follow them on a every other day basis while she is in the hospital Her and I discussed putting her back on Keppra yesterday but when presented with this option today she was adamantly against it Certainly other options for her on anticonvulsants in this situation we can explore these later once we establish that we can control her seizures to some degree by raising her Depakote a bit I am going to check an EEG tomorrow to be sure if there is ongoing frequent left hemispheric spike and wave activity or focal sharp waves which if present might explain some of her intermittent dazed appearance and speech hesitancy Augusto Neri MD
[2018-09-02] MEDS: WARFARIN SOD 5 MG TAB PO SCH (15:44)
[2018-09-02] MEDS: DOXYCYCLINE HYCLATE 100 MG in DEXTROSE 5% 100 ML IV SCH (20:34)
[2018-09-03] MEDS: PIPERACILLIN/TAZOBACTAM 3.375 GM in DEXTROSE 5% 100 ML IV SCH ×4 (00:12→23:53)
[2018-09-03] MEDS: DEXTROSE 5% IV SCH ×4 (04:18→23:52)
[2018-09-03] MEDS: VALPROATE SOD IV SCH ×4 (04:18→23:52)
[2018-09-03 06:36] LABS: Hemoglobin 11.5 g/dL (12.0-16.0); Mean Corpuscular Hgb Conc 31.9 g/dL (32-36); Mean Corpuscular Volume 101.4 fL (80-100); Mean Platelet Volume 8.3 fL (7.4-10.4); Platelet Count 194 K/uL (130-400); RDW Coefficient of Variation 15.2 % (11.5-14.5); RDW Standard Deviation 56.1 fL (36.4-46.3); Red Blood Count 3.55 M/uL (4.2-5.4); White Blood Count 7.06 K/uL (4.8-10.8)
[2018-09-03 06:56] LABS: Prothrombin Time 19.8 Seconds (9.0-12.0)
[2018-09-03 07:01] LABS: Albumin Globulin Ratio 0.8 (0.9-2); Albumin Level 2.2 gm/dl (3.4-5.0); BUN Creatinine Ratio 35.6 (10-20); Bilirubin,Total 0.2 mg/dl (0.2-1); Calcium 8.7 mg/dl (8.5-10.1); Creatinine Clr Calc Pharmacy 64.1 ml/min; Est GFR (African American) 89.4; Est GFR (Non-African American) 77.1; Globulin 2.7 gm/dl (2.5-4.0); Potassium 4.3 mmol/L (3.5-5.1); Total Protein 4.9 gm/dl (6.4-8.2)
[2018-09-03 07:14] LABS: Basophils # (auto) 0.02 K/uL (0-0.2); Basophils % (auto) 0.3 %; Eosinophils # (auto) 0.03 K/uL (0-0.5); Eosinophils % (auto) 0.4 %; Immature Granulocytes # (auto) 0.61 K/uL (0.00-0.02); Immature Granulocytes % (auto) 8.6 %; Lymphocytes # (auto) 2.18 K/uL (1.2-3.4); Lymphocytes % (auto) 30.9 %; Monocytes # (auto) 1.18 K/uL (0.11-0.59); Monocytes % (auto) 16.7 %; Neutrophils # (auto) 3.04 K/uL (1.4-6.5); Neutrophils % (auto) 43.1 %; RBC Morphology Unremarkable
[2018-09-03] MEDS: FLUTICASONE INH SCH (08:54)
[2018-09-03] MEDS: VILANTEROL INH SCH (08:54)
[2018-09-03] MEDS: [UNRECOGNIZED DRUG - OTHER] INH SCH (09:00)
[2018-09-03] MEDS: predniSONE 20 MG TAB PO SCH (09:00)
[2018-09-03] MEDS: ASPIRIN 81 MG ECTAB PO SCH (09:00)
[2018-09-03] MEDS: METOPROLOL SUCC 25MG EXT REL TAB PO SCH ×2 (09:01→09:28)
[2018-09-03] MEDS: POTASSIUM CHLORIDE 10 MEQ TABCR PO SCH ×3 (09:01→20:25)
[2018-09-03] MEDS: HEPARIN SOD 5,000 UNIT/0.5 ML VIAL SQ SCH (09:02)
[2018-09-03] MEDS: MUPIROCIN 2% OINT 22 GM TUBE SCH ×2 (09:28→20:25)
[2018-09-03] MEDS: DOXYCYCLINE HYCLATE 100 MG in DEXTROSE 5% 100 ML IV SCH ×2 (09:29→20:31)
[2018-09-03] MEDS ORDERED: VANCOMYCIN TROUGH ONE (11:30)
--- NOTE | 2018-09-03 14:44 | Procedure Note ---
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 and postictal confusion Home Medication List Home Medications Medication Instructions Recorded Confirmed Type Incruse Ellipta 1 inh INHALATION DAILY 04/11/18 09/01/18 History aspirin [Aspir-81] 81 mg PO DAILY 04/11/18 09/01/18 History acetaminophen 650 mg PO Q6H PRN MDD 3G 07/30/18 09/01/18 History Breo Ellipta 1 inh INHALATION DAILY 30 Days #1 08/30/18 09/01/18 Rx ea divalproex 1,000 mg PO Q12H 30 Days #60 tab 08/30/18 09/01/18 Rx furosemide 40 mg PO BID 30 Days #60 tab 08/30/18 09/01/18 Rx ipratropium bromide 2 puff INHALATION Q2H PRN 30 Days 08/30/18 09/01/18 Rx #1 gm metoprolol succinate 25 mg PO DAILY 30 Days #30 tab 08/30/18 09/01/18 Rx potassium chloride [Klor-Con M10] 10 meq PO TID 30 Days #90 tab 08/30/18 09/01/18 Rx prednisone 20 mg PO DAILY 5 Days #5 tab 08/30/18 09/01/18 Rx warfarin [Coumadin] 5 mg PO DAILY 30 Days #30 tab 08/30/18 09/01/18 Rx doxycycline hyclate [Vibramycin] 100 mg PO BID 08/31/18 09/01/18 History Inpatient Medication List Aspirin (Ecotrin Ectab) 81 mg PO DAILY [facility] Stop: 10/01/18 08:59 Last Admin: 09/03/18 09:00 Dose: 81 mg Documented by: [id number] Admin: 09/02/18 10:21 Dose: 81 mg Documented by: [id number] Admin: 09/02/18 08:08 Dose: Not Given Documented by: [id number] Admin: 09/01/18 09:01 Dose: Not Given Documented by: [id number] Divalproex Sodium (Depakote Extended Release) 1,000 mg PO Q12 MILY Stop: 10/01/18 08:59 Last Admin: 09/01/18 09:01 Dose: Not Given Documented by: [id number] Fluticasone/Vilanterol (Breo Ellipta) 1 puffs INH DAILY MILY Stop: 10/03/18 08:59 Last Admin: 09/03/18 08:54 Dose: 1 puffs Documented by: [id number] Piperacillin Sod/Tazobactam (Sod 3.375 gm/ Dextrose) 115 mls @ 28.75 mls/hr IV Q8H MILY; Protocol Stop: 09/08/18 15:29 Last Infusion: 09/03/18 13:28 Dose: 0 mls/hr Documented by: [id number] Admin: 09/03/18 09:26 Dose: 28.8 mls/hr Documented by: [id number] Infusion: 09/03/18 04:17 Dose: 0 mls/hr Documented by: [id number] Admin: 09/03/18 00:12 Dose: 28.8 mls/hr Documented by: [id number] Infusion: 09/02/18 19:45 Dose: 0 mls/hr Documented by: [id number] Admin: 09/02/18 15:44 Dose: 28.8 mls/hr Documented by: [id number] Infusion: 09/02/18 12:15 Dose: 0 mls/hr Documented by: [id number] Admin: 09/02/18 08:03 Dose: 28.8 mls/hr Documented by: [id number] Infusion: 09/02/18 03:47 Dose: 0 mls/hr Documented by: [id number] Admin: 09/01/18 23:43 Dose: 28.8 mls/hr Documented by: [id number] Infusion: 09/01/18 21:37 Dose: 0 mls/hr Documented by: [id number] Admin: 09/01/18 17:19 Dose: 28.8 mls/hr Documented by: [id number] Valproic Acid 625 mg/ Dextrose 56.25 mls @ 55 mls/hr IV Q6H MILY Stop: 10/01/18 15:59 Last Admin: 09/03/18 12:51 Dose: 55 mls/hr Documented by: [id number] Infusion: 09/03/18 05:20 Dose: 0 mls/hr Documented by: [id number] Admin: 09/03/18 04:18 Dose: 55 mls/hr Documented by: [id number] Infusion: 09/03/18 00:12 Dose: 0 mls/hr Documented by: [id number] Admin: 09/02/18 23:07 Dose: 55 mls/hr Documented by: [id number] Infusion: 09/02/18 16:54 Dose: 0 mls/hr Documented by: [id number] Admin: 09/02/18 15:44 Dose: 55 mls/hr Documented by: [id number] Infusion: 09/02/18 11:51 Dose: 0 mls/hr Documented by: [id number] Admin: 09/02/18 10:48 Dose: 55 mls/hr Documented by: [id number] Infusion: 09/02/18 05:00 Dose: 0 mls/hr Documented by: [id number] Admin: 09/02/18 03:54 Dose: 55 mls/hr Documented by: [id number] Infusion: 09/01/18 23:42 Dose: 0 mls/hr Documented by: [id number] Admin: 09/01/18 22:28 Dose: 55 mls/hr Documented by: [id number] Infusion: 09/01/18 17:34 Dose: 0 mls/hr Documented by: [id number] Admin: 09/01/18 15:24 Dose: 55 mls/hr Documented by: [id number] Doxycycline Hyclate 100 mg/ (Dextrose) 110 mls @ 50 mls/hr IV Q12H MILY Stop: 09/09/18 20:59 Last Infusion: 09/03/18 12:52 Dose: 0 mls/hr Documented by: [id number] Admin: 09/03/18 09:29 Dose: 50 mls/hr Documented by: [id number] Infusion: 09/02/18 22:30 Dose: 0 mls/hr Documented by: [id number] Admin: 09/02/18 20:34 Dose: 50 mls/hr Documented by: [id number] Metoprolol Succinate (Toprol Xl) 25 mg PO DAILY MILY Stop: 10/01/18 08:59 Last Admin: 09/03/18 09:28 Dose: 25 mg Documented by: [id number] Admin: 09/02/18 10:21 Dose: 25 mg Documented by: [id number] Admin: 09/02/18 08:09 Dose: Not Given Documented by: [id number] Admin: 09/01/18 09:02 Dose: Not Given Documented by: [id number] Mupirocin (Bactroban 2%) 1 appln NA BID MILY Stop: 10/01/18 20:59 Last Admin: 09/03/18 09:28 Dose: 1 appln Documented by: [id number] Admin: 09/02/18 20:37 Dose: 1 appln Documented by: [id number] Admin: 09/02/18 08:07 Dose: 1 appln Documented by: [id number] Admin: 09/01/18 21:00 Dose: 1 appln Documented by: [id number] Potassium Chloride (Klor-Con M10) 10 meq PO TID MILY Stop: 10/01/18 08:59 Last Admin: 09/03/18 12:53 Dose: 10 meq Documented by: [id number] Admin: 09/03/18 09:01 Dose: 10 meq Documented by: [id number] Admin: 09/02/18 20:38 Dose: 10 meq Documented by: [id number] Admin: 09/02/18 13:38 Dose: 10 meq Documented by: [id number] Admin: 09/02/18 08:08 Dose: Not Given Documented by: [id number] Admin: 09/01/18 23:58 Dose: Not Given Documented by: [id number] Admin: 09/01/18 12:25 Dose: Not Given Documented by: [id number] Admin: 09/01/18 09:02 Dose: Not Given Documented by: [id number] Prednisone (Prednisone) 40 mg PO DAILY [facility] Stop: 10/03/18 08:59 Last Admin: 09/03/18 09:00 Dose: 40 mg Documented by: [id number] Umeclidinium [place] (Incruse Ellipta) 1 ea INH DAILY MILY Stop: 10/03/18 08:59 Last Admin: 09/03/18 09:00 Dose: 1 ea Documented by: [id number] Warfarin Sodium (Coumadin) 5 mg PO DAILY@1600 MILY Stop: 10/01/18 15:59 Last Admin: 09/02/18 15:44 Dose: 5 mg Documented by: [id number] Admin: 09/01/18 15:20 Dose: Not Given Documented by: [id number] Discontinued Medications Heparin Sodium (Porcine) (Heparin Sodium (Porcine)) 5,000 units SQ Q12 MILY Stop: 10/01/18 08:59 Last Admin: 09/03/18 09:02 Dose: 5,000 units Documented by: [id number] Cosigned by: [id number] Admin: 09/02/18 20:38 Dose: 5,000 units Documented by: [id number] Cosigned by: [id number] Admin: 09/02/18 08:08 Dose: 5,000 units Documented by: [id number] Cosigned by: [id number] Admin: 09/01/18 21:01 Dose: 5,000 units Documented by: [id number] Cosigned by: [id number] Admin: 09/01/18 10:19 Dose: 5,000 units Documented by: [id number] Cosigned by: [id number] Levetiracetam 1,000 mg/ (Dextrose) 110 mls @ 440 mls/hr IV NOW STA Stop: 09/01/18 00:11 Last Infusion: 09/01/18 00:29 Dose: 0 mls/hr Documented by: [id number] Admin: 09/01/18 00:14 Dose: 440 mls/hr Documented by: [id number] Lorazepam (Ativan) 2 mg in 4 mls @ 4 mls/min IV NOW STA Stop: 08/31/18 23:59 Last Admin: 09/01/18 00:01 Dose: 4 mls/min Documented by: [id number] Cefepime HCl 1,000 mg/ Syringe 11.3 mls @ 5.5 mls/min IV Q12H MILY Stop: 09/08/18 04:59 Last Admin: 09/01/18 05:17 Dose: 5.5 mls/min Documented by: [id number] Methylprednisolone 40 mg/ (Syringe) 0.64 mls @ 1.5 mls/min IV Q6H MILY Stop: 10/01/18 04:59 Last Admin: 09/01/18 05:17 Dose: 1.5 mls/min Documented by: [id number] Sodium Chloride (Nss 1000ml) 1,000 mls @ 60 mls/hr IV .[id number] MILY Stop: 10/01/18 04:30 Last Infusion: 09/01/18 12:25 Dose: 0 mls/hr Documented by: [id number] Infusion: 09/01/18 11:43 Dose: 0 mls/hr Documented by: [id number] Admin: 09/01/18 04:59 Dose: 80 mls/hr Documented by: [id number] Vancomycin HCl 1,000 mg/ (Sodium Chloride) 270 mls @ 125 mls/hr IV Q14H MILY; Protocol Stop: 09/08/18 17:59 Last Infusion: 09/02/18 10:37 Dose: 0 mls/hr Documented by: [id number] Admin: 09/02/18 08:01 Dose: 125 mls/hr Documented by: [id number] Infusion: 09/01/18 19:30 Dose: 0 mls/hr Documented by: [id number] Admin: 09/01/18 17:19 Dose: 125 mls/hr Documented by: [id number] Vancomycin HCl 1,750 mg/ (Sodium Chloride) 535 mls @ 200 mls/hr IV TODAY@0500 ONE Stop: 09/01/18 07:40 Last Infusion: 09/01/18 07:47 Dose: 0 mls/hr Documented by: [id number] Admin: 09/01/18 05:16 Dose: 200 mls/hr Documented by: [id number] Valproic Acid 500 mg/ Dextrose 55 mls @ 55 mls/hr IV Q6H MILY Stop: 10/01/18 09:59 Last Infusion: 09/01/18 11:43 Dose: 0 mls/hr Documented by: [id number] Admin: 09/01/18 10:19 Dose: 55 mls/hr Documented by: [id number] Furosemide 20 mg/ Syringe 2 mls @ 4 mls/min IV DAILY MILY Stop: 10/01/18 10:29 Last Admin: 09/01/18 11:42 Dose: 4 mls/min Documented by: [id number] Methylprednisolone 40 mg/ (Syringe) 0.64 mls @ 1.5 mls/min IV Q12H MILY Stop: 10/01/18 15:59 Last Admin: 09/02/18 03:54 Dose: 1.5 mls/min Documented by: [id number] Admin: 09/01/18 15:25 Dose: 1.5 mls/min Documented by: [id number] Piperacillin Sod/Tazobactam (Sod 3.375 gm/ Dextrose) 115 mls @ 230 mls/hr IV NOW ONE; Protocol Stop: 09/01/18 11:29 Last Infusion: 09/01/18 12:17 Dose: 0 mls/hr Documented by: [id number] Admin: 09/01/18 11:42 Dose: 230 mls/hr Documented by: [id number] Lorazepam (Ativan) Confirm Administered Dose 2 mg .ROUTE .STK-MED ONE Stop: 08/31/18 22:23 Last Admin: 08/31/18 22:34 Dose: 2 mg Documented by: [id number] Miscellaneous (Order Awaiting Action) 1 ea N/A DAILY MILY Stop: 10/01/18 08:59 Last Admin: 09/02/18 08:09 Dose: 1 ea Documented by: [id number] Admin: 09/01/18 09:02 Dose: Not Given Documented by: [id number] Miscellaneous (Order Awaiting Action) 1 ea N/A DAILY MILY Stop: 10/01/18 08:59 Last Admin: 09/02/18 08:09 Dose: 1 ea Documented by: [id number] Admin: 09/01/18 09:02 Dose: Not Given Documented by: [id number] Description This is a 21 electrode EEG with a single channel dedicated to limited EKG. The electrodes were placed in accordance with the International 10-20 system. This EEG was done as a bedside recording with simultaneous video analysis of patient moving the behavior. The tracing is of reasonable technical quality albeit marred at times by muscle and movement artifact. There is evidence for a normal background rhythm in the alpha range of about 10 Hz maximum frequency which is present and symmetrical in the posterior head regions. Central theta activity of moderate voltage in the mid frequency is seen in a symmetrical fashion without any focality over the left hemisphere and without any rhythmic discharges seen over that same distribution beta activity seen bifrontally. Photic stimulation induces no important changes. At no time during the tracing is evidence for a potentially epileptogenic activity for polyspike and spike-wave bursts, focal sharp waves and focal spikes. Interpretation This EEG is essentially normal during wakefulness revealing no evidence for focal or generalized encephalopathy with no evidence for potentially epileptogenic activity but the absence of the letter does not exclude the diagnosis of a seizure disorder. The tracing is of value and that it does not indicate ongoing subclinical rhythmic activity that might suggest ongoing seizures Clinical Correlation This is a normal EEG during wakefulness and with photic stimulation indicating no evidence for potentially epileptogenic activity or a focal generalized encephalopathy Augusto Neri MD
--- NOTE | 2018-09-03 15:17 | Communication Note ---
Date of Service: September 03, 2018 Kathy looks to me to be back to her baseline today she is awake alert oriented there is no a aphasia no right hemiparesis and we are awaiting the results of her Depakote level before making a decision about raising her from 1000 mg of extended release twice a day to 1500 twice a day she is very little or no tremor that affects her talked about on the Depakote is not drowsy has had no further seizure activity. At this point then we are awaiting results of Depakote level and needle ultimate decision regarding her final dose. An EEG today was absolutely normal revealing no evidence for focal or generalized encephalopathy or for any potentially epileptogenic activity originating from the left hemisphere I will check back with her tomorrow. Augusto Neri MD
[2018-09-03] MEDS: WARFARIN SOD 5 MG TAB PO SCH (16:42)
--- NOTE | 2018-09-04 02:45 | Hospitalist Progress Note ---
Date of Service September 04, 2018 delayed entry date of service 09/03/18 Assessment & Plan (1) Seizure: (+) breakthrough seizures neurologist consulted now in IV Depakote No seizure recurrence plan to transition to increased PO Depakote pending Depakote level (2) Acute alteration in mental status: secondary to above CT head no acute process (3) Sepsis: (4) HCAP (healthcare-associated pneumonia): recently admitted, discharged on Doxycycline (+) new RML infiltrates in addition to lower lobe infiltrates discharged on Doxycycline (+) nasal MRSA Improving Vanco started changed to doxycycline, changed Cefepime to Zosyn IV continue nebs, Solumedrol transitioned to prednisone monitor -- continues to improve (5) Non-ischemic cardiomyopathy: Lasix IV 20mg given Not in overt failure HOLD Lasix today in light of blood pressure Reevaluate tomorrow (6) Obesity (BMI 30.0-34.9): (7) DVT (deep venous thrombosis): (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 with INR goal of 2.0-3.0: INR 2.0 continue coumadin monitor INR (9) AVM (arteriovenous malformation) brain: stable neuro consulted Disposition will need PT/OT lives with her at home Subjective ff up for breakthrough seizures, pneumonia alert, oriented x 3, conversant states she feels fine overall denies headache, confusion breathing is improving, no cough no other symptoms Physical Exam Vital Signs (Past 24 Hours): Last Vital Signs Temp 36.7 C 09/03/18 19:25 Pulse 77 09/03/18 19:25 Resp 16 09/03/18 19:25 BP 91/60 L 09/03/18 19:25 Pulse Ox 98 09/03/18 19:25 Physical Exam: General- oriented x 3, not in distress, speaks in sentences with no effort or accessory muscle use Eyes- anicteric Neck- no JVD Lungs- intermittent mild rhonchi, no wheeze Heart- normal rate, regular rhythm; no murmurs Abdomen- normal bowel sounds, nondistended, soft, nontender Extremities- no pretibial edema, no calf tenderness Neuro- alert, oriented x 3; no gross focal neurologic deficits Skin- warm & dry Results & Data Laboratory Results noted and reviewed
[2018-09-04] MEDS: VALPROATE SOD IV SCH ×4 (06:21→23:58)
[2018-09-04] MEDS: DEXTROSE 5% IV SCH ×4 (06:21→23:58)
[2018-09-04 07:12] LABS: Hematocrit (blood only) 36.1 % (37-47); Hemoglobin 11.5 g/dL (12.0-16.0); Mean Corpuscular Hgb Conc 31.9 g/dL (32-36); Mean Corpuscular Volume 100.8 fL (80-100); Mean Platelet Volume 8.3 fL (7.4-10.4); Platelet Count 216 K/uL (130-400); RDW Coefficient of Variation 14.9 % (11.5-14.5); RDW Standard Deviation 55.2 fL (36.4-46.3); Red Blood Count 3.58 M/uL (4.2-5.4); White Blood Count 8.27 K/uL (4.8-10.8)
[2018-09-04 07:21] LABS: INR 1.9 (0.9-1.1); Prothrombin Time 18.2 Seconds (9.0-12.0)
[2018-09-04 07:34] LABS: Basophils # (auto) 0.01 K/uL (0-0.2); Basophils % (auto) 0.1 %; Eosinophils # (auto) 0.01 K/uL (0-0.5); Eosinophils % (auto) 0.1 %; Immature Granulocytes # (auto) 0.46 K/uL (0.00-0.02); Immature Granulocytes % (auto) 5.6 %; Lymphocytes # (auto) 1.74 K/uL (1.2-3.4); Monocytes # (auto) 1.41 K/uL (0.11-0.59); Neutrophils # (auto) 4.64 K/uL (1.4-6.5); Neutrophils % (auto) 56.2 %; Toxic Vacuolation 1+
[2018-09-04] MEDS: PIPERACILLIN/TAZOBACTAM 3.375 GM in DEXTROSE 5% 100 ML IV SCH (07:45)
[2018-09-04] MEDS: MUPIROCIN 2% OINT 22 GM TUBE SCH ×2 (08:32→20:17)
[2018-09-04] MEDS: VILANTEROL INH SCH (08:33)
[2018-09-04] MEDS: FLUTICASONE INH SCH (08:33)
[2018-09-04] MEDS: predniSONE 20 MG TAB PO SCH (08:36)
[2018-09-04] MEDS: [UNRECOGNIZED DRUG - OTHER] INH SCH (08:37)
[2018-09-04] MEDS: POTASSIUM CHLORIDE 10 MEQ TABCR PO SCH ×3 (08:37→20:19)
[2018-09-04] MEDS: ASPIRIN 81 MG ECTAB PO SCH (08:38)
[2018-09-04] MEDS: METOPROLOL SUCC 25MG EXT REL TAB PO SCH (09:26)
[2018-09-04] MEDS: DOXYCYCLINE HYCLATE 100 MG in DEXTROSE 5% 100 ML IV SCH (09:26)
[2018-09-04] MEDS ORDERED: levoFLOXacin 750 MG TAB PO ONE (15:15)
[2018-09-04] MEDS: WARFARIN SOD 5 MG TAB PO SCH (15:40)
--- NOTE | 2018-09-04 15:49 | Communication Note ---
Date of Service: September 04, 2018 Mrs. Godinez looks great today in terms of being awake alert conversant and knowledgeable about her medications and doses and to have no language disturban ce or right hemiparesis. No further seizure activity has been reported. Her Depakote level yesterday on 36 hours of Depacon 625 mg every [address] hours [address] Vang and I discussed the issue of elected to repeat the Depakote level today and to see if it is continuing to rise. 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 I will check back with her tomorrow to review the labs and will be in contact with Dr. Vang during the day through our text messaging system. Augusto Neri MD
[2018-09-04] MEDS: DOXYCYCLINE HYCLATE 100 MG CAP PO SCH (20:19)
[2018-09-05] MEDS: DEXTROSE 5% IV SCH ×2 (06:23→11:36)
[2018-09-05] MEDS: VALPROATE SOD IV SCH ×2 (06:23→11:36)
--- NOTE | 2018-09-05 06:26 | Hospitalist Progress Note ---
Date of Service September 05, 2018 delayed entry date of service 09/04/18 Assessment & Plan (1) Seizure: (+) breakthrough seizures neurologist consulted placed on IV Depakote No seizure recurrence since admission, mental status back to baseline plan to transition to increased PO Depakote pending Depakote level (2) Acute alteration in mental status: Metabolic Encephalopathy secondary to above, Sepis from HCAP CT head no acute process (3) Sepsis: (4) HCAP (healthcare-associated pneumonia): recently admitted, discharged on Doxycycline (+) new RML infiltrates in addition to lower lobe infiltrates discharged on Doxycycline (+) nasal MRSA Improving Vanco started changed to doxycycline, changed Cefepime to Zosyn IV continue nebs, Solumedrol transitioned to prednisone -- continues to improve transitioned to Levaquin + Doxycyline PO continue Prednisone taper, Nebs (5) Non-ischemic cardiomyopathy: Lasix IV 20mg given Not in overt failure HOLD Lasix today in light of blood pressure Reevaluate tomorrow (6) Obesity (BMI 30.0-34.9): (7) DVT (deep venous thrombosis): (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 with INR goal of 2.0-3.0: INR 1.9 continue coumadin monitor INR (9) AVM (arteriovenous malformation) brain: stable neuro consulted Disposition PT/OT lives with her at home Subjective ff up for seizure breakthrough, penumonia seen sitting up in bed, having dinner in good spirits oriented x 3, comfortable states she continues to feel improved answers all questions appropriately states breathing and cough improving no other symptoms Physical Exam Vital Signs (Past 24 Hours): Last Vital Signs Temp 36.6 C 09/05/18 03:42 Pulse 73 09/05/18 05:51 Resp 20 09/05/18 03:42 BP 131/81 09/05/18 03:42 Pulse Ox 94 09/05/18 03:42 Physical Exam: General- oriented x 3, not in distress, speaks in sentences with no effort or accessory muscle use Eyes- anicteric Neck- no JVD Lungs- clear breath sounds, no rales/wheezes bilaterally Heart- normal rate, regular rhythm; no murmurs Abdomen- normal bowel sounds, nondistended, soft, nontender Extremities- mild lower leg edema, no calf tenderness Neuro- alert, oriented x 3; no gross focal neurologic deficits Skin- warm & dry Results & Data Laboratory Results all noted and reviewed
[2018-09-05 06:32] LABS: INR 1.8 (0.9-1.1); Prothrombin Time 17.8 Seconds (9.0-12.0)
[2018-09-05] MEDS: ASPIRIN 81 MG ECTAB PO SCH (08:36)
[2018-09-05] MEDS: MUPIROCIN 2% OINT 22 GM TUBE SCH ×2 (08:36→21:07)
[2018-09-05] MEDS: POTASSIUM CHLORIDE 10 MEQ TABCR PO SCH ×3 (08:36→20:11)
[2018-09-05] MEDS: predniSONE 20 MG TAB PO SCH (08:38)
[2018-09-05] MEDS: METOPROLOL SUCC 25MG EXT REL TAB PO SCH (08:38)
[2018-09-05] MEDS: DOXYCYCLINE HYCLATE 100 MG CAP PO SCH ×2 (08:39→20:11)
[2018-09-05] MEDS: FLUTICASONE INH SCH (08:43)
[2018-09-05] MEDS: [UNRECOGNIZED DRUG - OTHER] INH SCH (08:43)
[2018-09-05] MEDS: VILANTEROL INH SCH (08:43)
[2018-09-05] MEDS ORDERED: levoFLOXacin 750 MG TAB PO SCH (11:00)
--- NOTE | 2018-09-05 13:49 | Hospitalist Progress Note ---
Date of Service September 05, 2018 Assessment & Plan (1) Seizure: (+) breakthrough seizures Neurologist consulted-input appreciated placed on IV Depakote and changed to oral Depakote from today No seizure recurrence since admission, mental status back to baseline Started on Depakote 1500 mg twice daily Medically stable (2) Acute alteration in mental status: Metabolic Encephalopathy secondary to above, Sepis from HCAP CT head no acute process Resolved (3) Sepsis: (4) HCAP (healthcare-associated pneumonia): recently admitted, discharged on Doxycycline (+) new RML infiltrates in addition to lower lobe infiltrates (+) nasal MRSA Improving Vanco started changed to doxycycline, changed Cefepime to Zosyn IV continue nebs, Solumedrol transitioned to prednisone Clinically a lot better Has been on Levaquin and doxycycline orally-we will finish the course (5) Non-ischemic cardiomyopathy: Lasix IV 20mg given Not in overt failure HOLD Lasix today in light of blood pressure We will continue her usual medication (6) Obesity (BMI 30.0-34.9): (7) DVT (deep venous thrombosis): (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 with INR goal of 2.0-3.0: INR 1.9 continue coumadin monitor INR-1.8 today (9) AVM (arteriovenous malformation) brain: stable neuro consulted Disposition PT/OT lives with her at home Likely discharge tomorrow Subjective 09/05 The patient was seen and examined in telemetry unit She did not have any more seizure activity and her pneumonia is controlled Denies any cough and no shortness of breath Denies any weakness or numbness involving any side of the body Has been getting physical therapy Physical Exam Vital Signs (Past 24 Hours): Last Vital Signs Temp 36.5 C 09/05/18 11:38 Pulse 80 09/05/18 11:38 Resp 20 09/05/18 11:38 BP 92/61 L 09/05/18 11:38 Pulse Ox 94 09/05/18 11:38 Physical Exam: No apparent distress at rest Constitutional: WD/WN, vitals as above Eyes: PERRL, conjunctivae normal, anicteric sclerae ENMT: external ear and nose normal, oropharynx normal Neck: trachea midline, no thyromegaly Respiratory: normal respiratory effort Auscultation: lungs clear to auscultation bilaterally Cardiovascular: Rate/Rhythm: regular rate and regular rhythm Heart Sounds: normal S1 and normal S2 Gastrointestinal (Abdomen): normal bowel sounds, soft, nontender, no hepatosplenomegaly Neurologic: PERRL, EOMI, accommodation nl, no face palsy, no dysarthria Results & Data Medications Administered Current Inpatient Medications Acetaminophen (Tylenol) 650 mg PO Q4H PRN PRN Reason: Pain or Fever Stop: 10/01/18 04:30 Aspirin (Ecotrin Ectab) 81 mg PO DAILY [facility] Stop: 10/01/18 08:59 Last Admin: 09/05/18 08:36 Dose: 81 mg Documented by: Divalproex Sodium (Depakote Extended Release) 1,000 mg PO Q12 [facility] Stop: 10/01/18 08:59 Last Admin: 09/01/18 09:01 Dose: Not Given Documented by: Divalproex Sodium (Depakote Extended Release) 1,500 mg PO BID [facility] Stop: 10/05/18 20:59 Doxycycline Hyclate (Vibramycin) 100 mg PO BID [facility] Stop: 09/09/18 20:59 Last Admin: 09/05/18 08:39 Dose: 100 mg Documented by: Fluticasone/Vilanterol (Breo Ellipta) 1 puffs INH DAILY [facility] Stop: 10/03/18 08:59 Last Admin: 09/05/18 08:43 Dose: 1 puffs Documented by: Lorazepam (Ativan) 1 mg in 2 mls @ 0.5 mls/min IV Q4H PRN PRN Reason: Undecided Stop: 10/01/18 04:30 Levofloxacin (Levaquin) 750 mg PO DAILY@1100 [facility] Stop: 09/08/18 10:59 Last Admin: 09/05/18 11:34 Dose: 750 mg Documented by: Metoprolol Succinate (Toprol Xl) 25 mg PO DAILY [facility] Stop: 10/01/18 08:59 Last Admin: 09/05/18 08:38 Dose: 25 mg Documented by: Mupirocin (Bactroban 2%) 1 appln NA BID [facility] Stop: 10/01/18 20:59 Last Admin: 09/05/18 08:36 Dose: 1 appln Documented by: Ondansetron HCl (Zofran) 4 mg IV Q6H PRN PRN Reason: Nausea Stop: 10/01/18 04:30 Potassium Chloride (Klor-Con M10) 10 meq PO TID [facility] Stop: 10/01/18 08:59 Last Admin: 09/05/18 08:36 Dose: 10 meq Documented by: Prednisone (Prednisone) 40 mg PO DAILY [facility] Stop: 10/03/18 08:59 Last Admin: 09/05/18 08:38 Dose: 40 mg Documented by: Umeclidinium [place] (Incruse Ellipta) 1 ea INH DAILY [facility] Stop: 10/03/18 08:59 Last Admin: 09/05/18 08:43 Dose: 1 ea Documented by: Warfarin Sodium (Coumadin) 5 mg PO DAILY@1600 [facility] Stop: 10/01/18 15:59 Last Admin: 09/04/18 15:40 Dose: 5 mg Documented by:
--- NOTE | 2018-09-05 14:00 | Neurology Progress Note ---
Date of Service September 05, 2018 Assessment & Plan (1) Seizure: 1. start oral depakote ER 1500 mg BID 2. will need to follow levels depakote and CBC, CMP as out patient 3. medical management per primary team neurology follow up 4 weeks Karena GROVES or Augusto Neri MD schedule Supervising Physician Co-Signing Physician Notes I have seen and discussed above patient with Dr Augusto Neri, neurology I saw Kathy today discussed her case with Karena Ford and find her to be pleasant alert awake oriented in 3 spheres and to have intact speech and nothing significant in terms of her right [id number] or hemisensory syndrome. No further seizures have been recorded. The Depakote level was again 74-78 despite the intravenous higher dosing We will recommend she be discharged on a total of 1500 mg sustained release Depakote twice a day and will arrange to have outpatient levels done periodically and obviously see her back in follow-up in the [facility] neurology clinic. For now neurology is signing off the case. Augusto Neri MD Subjective Kathy is a 73 year old female with PMH- right thigh hematoma, nonischemic cardiomyopathy, obesity with a BMI 31, DVT, AVM, seizure disorder, alcoholism, COPD who presents present with seizure activity 09/01/2018 . She was confused and EMS report she had another seizure. She was hospitalized 08/25- [facility] for PNA and is currently on abx and Coumadin. She has an AVM in the right side of her brain, edema on the brain, and CHF. Previously she was intubated for seizures because she was unresponsive. Today she is out of bed and states she is feeling better today. Discussed increase of Depakote ER 1500 mg BID for seizure protection. She is questioning whether it would be better to return to [facility] but this caused some confusion when tried previously. denies CP, SOB, abdominal pain, one sided weakness,numbness tingling, N, V. Physical Exam Vital Signs (Past 24 Hours): Last Vital Signs Temp 36.5 C 09/05/18 11:38 Pulse 80 09/05/18 11:38 Resp 20 09/05/18 11:38 BP 92/61 L 09/05/18 11:38 Pulse Ox 94 09/05/18 11:38 Gen: alert NAD oriented to self hospital lungs course breath sounds CV RRR gait tandem with minimal assistance Results & Data Laboratory Results Abnormal lab results 09/05/18 Range/Units 05:54 PT 17.8 H (9.0-12.0) Seconds INR 1.8 H (0.9-1.1) Depakote level 78 Diagnostic Findings no new imaging
[2018-09-05] MEDS: WARFARIN SOD 5 MG TAB PO SCH (16:18)
[2018-09-05] MEDS: DIVALPROEX EXTENDED RELEASE 500 MG TAB PO SCH (20:11)
[2018-09-06 06:57] LABS: INR 1.7 (0.9-1.1); Prothrombin Time 16.4 Seconds (9.0-12.0)
[2018-09-06] MEDS: POTASSIUM CHLORIDE 10 MEQ TABCR PO SCH ×2 (08:30→15:37)
[2018-09-06] MEDS: METOPROLOL SUCC 25MG EXT REL TAB PO SCH (08:30)
[2018-09-06] MEDS: predniSONE 20 MG TAB PO SCH (08:30)
[2018-09-06] MEDS: MUPIROCIN 2% OINT 22 GM TUBE SCH (08:30)
[2018-09-06] MEDS: DOXYCYCLINE HYCLATE 100 MG CAP PO SCH (08:30)
[2018-09-06] MEDS: ASPIRIN 81 MG ECTAB PO SCH (08:30)
[2018-09-06] MEDS: DIVALPROEX EXTENDED RELEASE 500 MG TAB PO SCH (08:31)
[2018-09-06] MEDS: FLUTICASONE INH SCH (10:53)
[2018-09-06] MEDS: VILANTEROL INH SCH (10:53)
[2018-09-06] MEDS: [UNRECOGNIZED DRUG - OTHER] INH SCH (10:53)
--- NOTE | 2018-09-06 13:29 | Hospitalist Progress Note ---
Date of Service September 06, 2018 Assessment & Plan (1) Seizure: (+) breakthrough seizures Neurologist consulted-input appreciated placed on IV Depakote and changed to oral Depakote from today No seizure recurrence since admission, mental status back to baseline Started on Depakote 1500 mg twice daily Medically stable We will get PT evaluation and likely be discharged this afternoon (2) Acute alteration in mental status: Metabolic Encephalopathy secondary to above, Sepis from HCAP CT head no acute process Resolved (3) Sepsis: (4) HCAP (healthcare-associated pneumonia): recently admitted, discharged on Doxycycline (+) new RML infiltrates in addition to lower lobe infiltrates (+) nasal MRSA Improving Vanco started changed to doxycycline, changed Cefepime to Zosyn IV continue nebs, Solumedrol transitioned to prednisone Clinically a lot better Has been on Levaquin and doxycycline orally-we will finish the course Levaquin discontinued due to interaction and potential for seizures We will continue doxycycline to finish the course (5) Non-ischemic cardiomyopathy: Lasix IV 20mg given Not in overt failure HOLD Lasix today in light of blood pressure We will continue her usual medication (6) Obesity (BMI 30.0-34.9): (7) DVT (deep venous thrombosis): (8) detention current use of anticoagulants with INR goal of 2.0-3.0: INR 1.9 continue coumadin monitor INR-1.7 today (9) AVM (arteriovenous malformation) brain: stable neuro consulted Disposition PT/OT lives with her at home Likely discharge this afternoon Subjective 4/3 The patient was seen and examined in telemetry unit She did not have any more seizure activity and her pneumonia is controlled Denies any cough and no shortness of breath Denies any weakness or numbness involving any side of the body Has been getting physical therapy / The patient was seen and examined in medical floor She has been feeling a lot better She will get physical therapy evaluation today Likely to be discharged this afternoon Physical Exam Vital Signs (Past 24 Hours): Last Vital Signs Temp 36.6 C 09/06/18 07:31 Pulse 83 09/06/18 07:31 Resp 18 09/06/18 07:31 BP 131/75 09/06/18 07:31 Pulse Ox 96 09/06/18 07:31 Physical Exam: No apparent distress at rest Constitutional: WD/WN, vitals as above Eyes: PERRL, conjunctivae normal, anicteric sclerae ENMT: external ear and nose normal, oropharynx normal Neck: trachea midline, no thyromegaly Respiratory: normal respiratory effort Auscultation: lungs clear to auscultation bilaterally Cardiovascular: Rate/Rhythm: regular rate and regular rhythm Heart Sounds: normal S1 and normal S2 Gastrointestinal (Abdomen): normal bowel sounds, soft, nontender, no hepatosplenomegaly Neurologic: PERRL, EOMI, accommodation nl, no face palsy, no dysarthria Results & Data Medications Administered Current Inpatient Medications Acetaminophen (Tylenol) 650 mg PO Q4H PRN PRN Reason: Pain or Fever Stop: 10/01/18 04:30 Aspirin (Ecotrin Ectab) 81 mg PO DAILY [facility] Stop: 10/01/18 08:59 Last Admin: 09/06/18 08:30 Dose: 81 mg Documented by: Divalproex Sodium (Depakote Extended Release) 1,500 mg PO BID [facility] Stop: 10/05/18 20:59 Last Admin: 09/06/18 08:31 Dose: 1,500 mg Documented by: Doxycycline Hyclate (Vibramycin) 100 mg PO BID [facility] Stop: 09/09/18 20:59 Last Admin: 09/06/18 08:30 Dose: 100 mg Documented by: Fluticasone/Vilanterol (Breo Ellipta) 1 puffs INH DAILY [facility] Stop: 10/03/18 08:59 Last Admin: 09/06/18 10:53 Dose: 1 puffs Documented by: Lorazepam (Ativan) 1 mg in 2 mls @ 0.5 mls/min IV Q4H PRN PRN Reason: Undecided Stop: 10/01/18 04:30 Metoprolol Succinate (Toprol Xl) 25 mg PO DAILY [facility] Stop: 10/01/18 08:59 Last Admin: 09/06/18 08:30 Dose: 25 mg Documented by: Mupirocin (Bactroban 2%) 1 appln NA BID [facility] Stop: 10/01/18 20:59 Last Admin: 09/06/18 08:30 Dose: 1 appln Documented by: Ondansetron HCl (Zofran) 4 mg IV Q6H PRN PRN Reason: Nausea Stop: 10/01/18 04:30 Potassium Chloride (Klor-Con M10) 10 meq PO TID [facility] Stop: 10/01/18 08:59 Last Admin: 09/06/18 08:30 Dose: 10 meq Documented by: Prednisone (Prednisone) 40 mg PO DAILY [facility] Stop: 10/03/18 08:59 Last Admin: 09/06/18 08:30 Dose: 40 mg Documented by: Umeclidinium [place] (Incruse Ellipta) 1 ea INH DAILY [facility] Stop: 10/03/18 08:59 Last Admin: 09/06/18 10:53 Dose: 1 ea Documented by: Warfarin Sodium (Coumadin) 5 mg PO DAILY@1600 [facility] Stop: 10/01/18 15:59 Last Admin: 09/05/18 16:18 Dose: 5 mg Documented by:
[2018-09-06] MEDS: WARFARIN SOD 5 MG TAB PO SCH (15:36)
--- NOTE | 2018-09-07 07:37 | Discharge Summary ---
Date of Service September 07, 2018 Admission HPI Per Admitting Provider 73-year-old female with a past medical history of right thigh hematoma, nonischemic cardiomyopathy, obesity with a BMI 31, DVT, AVM, seizure disorder, alcoholism, COPD who presents the emergency room tonight with another seizure. Per EMS, the patient's family originally called EMS due to the patient being confused and was talking at first, but they she began to have another seizure. The patient was seen recently at [facility] for PNA and is currently on abx and Coumadin. 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 He adds that the patient has a history of seizures and was intubated the last time for seizures. Assessment and Plan Seizure Sepsis Pneumonia Altered mental status Leukocytosis Nonischemic cardia myopathy Obesity with BMI 31 History of DVT AVM which is calcified History of seizures Alcoholism COPD Vancomycin and cefepime have been initiated, nebulizers, IV steroids, continue outpatient medications where appropriate, IV steroids, neurology evaluation ROS-offers no history, thrashing around on the bed Physical Exam Gen-nonverbal and agitated NAD, Afebrile Head-NCAT, EOMI, PERRLA, Anicteric Sclera, No Posterior Pharyngeal Erythema Neck-Supple, No JVD, No Thyromegaly, No Masses, No LAD, No Bruits Lungs-Clear to Auscultation Bilaterally, No Rales, No Rhonchi, No Wheezing, No Crepitus Chest-No S4, +S1, +S2, No S3, No Murmurs, No Rubs, No Gallops, No Ectopy Abdomen-Soft, Bowel Sounds Present, Non Tender, Non Distended, No Hepatomegaly, No Splenomegaly, No Palpable Masses, No Rebound, No Rigidity, No Guarding Musculoskeletal-Full Range of Motion Bilaterally, No CVAT Extremities-No Cyanosis, No Clubbing, 2+ Edema Nuero-Cranial Nerves II-XII grossly intact, Motor WNL, DTRs WNL, Strength WNL, No Focal Psych-agitated PMH-right thigh hematoma, nonischemic cardiomyopathy, obesity with BMI 31, DVT, AVM right side of her brain, seizure disorder, alcoholism, COPD PSH-appendectomy, cataract FH-Family history of CVA, CAD SH-former smoker, abuses alcohol, history of substance abuse resides at [facility] Meds reviewed and Reconciled Labs Reviewed Admission Exam Per Admitting Provider Vital Signs (Past 24 Hours): Last Vital Signs Temp 37.2 C 08/31/18 23:30 Pulse 94 H 09/01/18 03:04 Resp 24 09/01/18 03:04 BP 117/79 09/01/18 03:04 Pulse Ox 97 09/01/18 03:04 Principal Diagnosis Breakthrough seizures, pneumonia, nonischemic cardiomyopathy Discharge Exam Constitutional WD/WN, vitals as above Eyes PERRL, conjunctivae normal, anicteric sclerae ENMT external ear and nose normal, oropharynx normal Neck trachea midline, no thyromegaly Respiratory normal respiratory effort Auscultation: lungs clear to auscultation bilaterally Cardiovascular Rate/Rhythm: regular rate and regular rhythm Heart Sounds: normal S1 and normal S2 Gastrointestinal (Abdomen) normal bowel sounds, soft, nontender, no hepatosplenomegaly Neurologic PERRL, EOMI, accommodation nl, no face palsy, no dysarthria Discharge Data Allergies Allergy/AdvReac Type Severity Reaction Status Date / Time Sulfa (Sulfonamide Allergy Mild rash Verified 08/31/18 23:57 Antibiotics) alcohol Allergy Unknown Recovering Verified 08/31/18 23:57 Alcoholic Opioids - Morphine Analogues AdvReac HISTORY OF Verified 08/31/18 23:57 ADDICTION Consultations 09/01/18 00:48 ED Decision to Admit Stat 09/01/18 04:31 Consult Neurology Routine Ordered Studies 08/31/18 22:20 CT head/brain wo con Stat 09/01/18 01:43 CT head/brain wo con Urgent Hospital Course (1) Seizure: (+) breakthrough seizures Neurologist consulted-input appreciated placed on IV Depakote and changed to oral Depakote from today No seizure recurrence since admission, mental status back to baseline Started on Depakote 1500 mg twice daily Medically stable We will get PT evaluation and likely be discharged this afternoon (2) Acute alteration in mental status: Metabolic Encephalopathy secondary to above, Sepis from HCAP CT head no acute process Resolved (3) Sepsis: (4) HCAP (healthcare-associated pneumonia): recently admitted, discharged on Doxycycline (+) new RML infiltrates in addition to lower lobe infiltrates (+) nasal MRSA Improving Vanco started changed to doxycycline, changed Cefepime to Zosyn IV continue nebs, Solumedrol transitioned to prednisone Clinically a lot better Has been on Levaquin and doxycycline orally-we will finish the course Levaquin discontinued due to interaction and potential for seizures We will continue doxycycline to finish the course (5) Non-ischemic cardiomyopathy: Lasix IV 20mg given Not in overt failure HOLD Lasix today in light of blood pressure We will continue her usual medication (6) Obesity (BMI 30.0-34.9): (7) DVT (deep venous thrombosis): (8) care home current use of anticoagulants with INR goal of 2.0-3.0: INR 1.9 continue coumadin monitor INR-1.7 today (9) AVM (arteriovenous malformation) brain: stable neuro consulted Disposition PT/OT lives with her at home Likely discharge this afternoon Total Time Total Time Spent Total Time Spent (In Minutes): 35 minutes Total Time Includes: Examination of the Patient, Discharge Planning, Medication Reconciliation and Communication With Other Providers Discharge Plan Discharge Items Patient Disposition: Home - Home Health Services Reason For Visit: SEPSI, B/L PNA Discharge Diagnosis: Breakthrough seizures, pneumonia, nonischemic cardiomyopathy Condition: Good Discharge Goals: Decrease discomfort, Improve function and Increase independence Activity: Resume your previous activity Non-emergency contact: Primary Care Provider Call non-emergency contact if: you have any medication questions and your symptoms worsen Follow-up/Referrals: Shameka Coe [Primary Care Provider] - 09/12/18 10:45 am (The appointment is with Dr. Rodriguez. Please have a Depakote level checked during your visit with Dr. Rodriguez and report to Dr. Neri.Please make an appointment with neurologist in 2-3 weeks. Coag clinic notified.) Diet: Heart Healthy Addtl Provider Instructions: Please take precaution to avoid falls. Please have a Depakote level checked when you see Dr. John in check and report to neurologist-. Prescriptions: New doxycycline hyclate 100 mg Capsule 100 mg PO BID 5 Days Qty: 10 RF: 0 prednisone 20 mg Tablet 20 mg PO UD Qty: 9 RF: 0 divalproex 500 mg Tablet Extended Release 24 Hr 1,500 mg PO BID 10 Days Qty: 60 RF: 0 Continued aspirin [Aspir-81] 81 mg Tablet,Delayed Release (Dr/Ec) 81 mg PO DAILY RF: 0 Incruse Ellipta 62.5 mcg/actuation Blister With Device 1 inh INHALATION DAILY RF: 0 acetaminophen 325 mg Tablet 650 mg PO Q6H MDD 3G PRN (Reason: Fever Or Pain) RF: 0 furosemide 40 mg tablet 40 mg PO BID 30 Days Qty: 60 RF: 0 warfarin [Coumadin] 5 mg Tablet 5 mg PO DAILY 30 Days Qty: 30 RF: 0 metoprolol succinate 25 mg tablet extended release 24 hr 25 mg PO DAILY 30 Days Qty: 30 RF: 0 potassium chloride [Klor-Con M10] 10 mEq tablet,ER particles/crystals 10 meq PO TID 30 Days Qty: 90 RF: 0 ipratropium bromide 17 mcg/actuation Hfa Aerosol Inhaler 2 puff INHALATION Q2H PRN (Reason: Shortness Of Breath) 30 Days Qty: 1 RF: 0 Breo Ellipta 200-25 mcg/dose Blister With Device 1 inh INHALATION DAILY 30 Days Qty: 1 RF: 0 Changed divalproex 500 mg tablet extended release 24 hr 1,500 mg PO Q12H 30 Days Qty: 60 RF: 0 Discontinued doxycycline hyclate [Vibramycin] 100 mg Capsule 100 mg PO BID RF: 0 Stand-Alone Forms: [facility] Discharge Orders: Discharge Order (Routine); Ordered 09/06/18 Ordered By: Clarice Patton Admission Data Admit Date/Time: 09/01/18 02:59 Attending Provider: Clarice Patton Admit Provider: Vaughn Fry Primary Care Provider: Shameka Coe Other Providers: Clarice Patton ; Ac Urrutia ; Vaughn Fry ; Karena Lovell Service: Medical Other Interventions: Discharge Summary Assessment (RN) Last Done: 09/06/18 16:17 DC Date/Time DO NOT enter until pt leaves facility: 09/06/18 17:30
== END 2018-09-06 17:30 | disposition home health service (06) | DRG 871 ==
LOC: ED 22:13 → SUATTDRO 09-01 02:59 → 1E 09-01 02:59 → 2S 09-01 18:44 → 4E 09-05 13:42

== ENCOUNTER 2018-10-09 19:25 | Inpatient (IN) ==
--- OUTSIDE RECORDS SUMMARY | 2018-10-09 19:29 | External Medical Summary | Continuity of Care Document ---
:1945 Author Name Tony Conner, Provider Address Unavailable Unavailable , Care Team Providers Name Role Phone Alysia Kovacs PA-C Unavailable [email or web address] BRET PATEL Unavailable Unavailable Unavailable Unavailable Unavailable Problems Seizure (780.39) (R56.9) Thyroid Nodule Cardiomyopathy (425.4) (I42.9) AVM (arteriovenous malformation) (747.60) (Q27.30) Pulmonary emphysema (492.8) (J43.9) Chronic obstructive pulmonary disease (496) (J44.9) Shortness of breath (786.05) (R06.02) VARGAS (dyspnea on exertion) (786.09) (R06.09) Former consumption of alcohol (V11.3) (Z87.898) Anemia (285.9) (D64.9) Allergies and Adverse Reactions Sulfa Drugs (Allergy) Reaction: Hives Medications Ventolin HFA 108 (90 Base) MCG/ACT Inhal ation Aerosol Solution; INHALE 2 PUFFS EVERY 4 HOURS NEEDED LAYNE Kovacs Start: 28-Sep-2017 Quantity: 1 18 GM Inhaler Refills: 3 Aspirin Low Dose 81 MG Oral Tablet Chewable; USE DIRECTED . Start: 10-Nov-2017 Refills: 0 Metoprolol Succinate ER 200 MG Oral Tabl et Extended Release 24 Hour; TAKE 1 TABLET ONCE DAILY. Start: 01-May-2018 Refills: 0 Dexamethasone 4 MG Oral Tablet; TAKE 1 TABLET DAILY. Start: 01-May-2018 Refills: 0 Zestril 5 MG Oral Tablet; TAKE 1 TABLET AM AND 1 TABLET PM Start: 01-May-2018 Refills: 0 levETIRAcetam 1000 MG Oral Tablet; TAKE 2 TABLETS TWICE ARMEN Y Start: 01-May-2018 Refills: 0 Trelegy Ellipta 100-62.5-25 MCG/INH Inha lation Aerosol Powder Breath Activated; INHALE 1 PUFF ONCE DAILY LAYNE Kovacs Start: 01-May-2018 Quantity: 1 60 Inhaler Pack Refills: 11 Procedures History of Appendectomy Status: Complete d History of Laparoscopic Aspiration Ovaries Status: Completed Immunizations Pneumovax 23 25 MCG/0.5ML Injection Injectable On: Apr-2010 Varicella On: 12-Apr-2012 Prevnar 13 Intramuscular Suspension On: 22-Apr-2015 Pneumovax 23 25 MCG/0.5ML Injection Injectable On: 04-May-20 16 13:56 Lot #: [id number], [employer] Family History Mother Family history of cerebrovascular accident (CVA) (V17.1) (Z8 2.3) Status: Active Family history of acute myocardial infarction (V17.3) (Z82.4 9) Status: Active Sister Family history of lung cancer (V16.1) (Z80.1) Status: Active Social History - Smoking Status Former smoker Plan of Treatment Planned Encounters Appointment; Alysia Kovasc PA-C Start: 30-Oct-2018 11:15 R equest Planned Observations Planned Goals not documented Results No Known Results Results not documented Encounters Appointment; Alysia Kovacs PA-C 01-May-2018 10:15 Encounter Diagnosis: Problem not documented Appointment; Alysia Kovacs PA-C 10-Nov-2017 9:00 Encounter Diagnosis: Problem not documented Appointment; Alysia Kovacs PA-C 12-May-2017 11:45 Encounter Diagnosis: Problem not documented Appointment; Alysia Kovacs PA-C 02-Nov-2016 13:00 Encounter Diagnosis: Problem not documented Appointment; Alysia Kovacs PA-C 30-Oct-2018 11:15 Encounter Diagnosis: Problem not documented
[2018-10-09 19:50] LABS: Basophils # (auto) 0.03 K/uL (0-0.2); Basophils % (auto) 0.4 %; Eosinophils # (auto) 0.04 K/uL (0-0.5); Eosinophils % (auto) 0.6 %; Hematocrit (blood only) 35.4 % (37-47); Hemoglobin 11.6 g/dL (12.0-16.0); Immature Granulocytes # (auto) 0.18 K/uL (0.00-0.02); Immature Granulocytes % (auto) 2.5 %; Lymphocytes # (auto) 1.86 K/uL (1.2-3.4); Lymphocytes % (auto) 25.9 %; Mean Corpuscular Hgb Conc 32.8 g/dL (32-36); Mean Platelet Volume 8.4 fL (7.4-10.4); Monocytes # (auto) 1.42 K/uL (0.11-0.59); Monocytes % (auto) 19.8 %; Neutrophils # (auto) 3.64 K/uL (1.4-6.5); Neutrophils % (auto) 50.8 %; Platelet Count 138 K/uL (130-400); RDW Coefficient of Variation 16.1 % (11.5-14.5); RDW Standard Deviation 58.7 fL (36.4-46.3); Red Blood Count 3.54 M/uL (4.2-5.4); White Blood Count 7.17 K/uL (4.8-10.8)
[2018-10-09] MEDS ORDERED: LORazepam 0.5 MG/1 ML VIAL IV STA (19:59)
[2018-10-09] MEDS ORDERED: DEXTROSE 5% IV STA (20:03)
[2018-10-09] MEDS ORDERED: VALPROATE SOD IV STA (20:03)
[2018-10-09 20:08] LABS: Alanine Aminotransferase 23 U/L (12-78); Albumin Level 2.7 gm/dl (3.4-5.0); Aspartate Aminotransferase 39 U/L (15-37); BUN Creatinine Ratio 30.8 (10-20); Blood Urea Nitrogen 40 mg/dl (7-18); Calcium 8.8 mg/dl (8.5-10.1); Carbon Dioxide 28 mmol/L (21-32); Chloride 102 mmol/L (98-107); Est GFR (African American) 47.5; Glucose 121 mg/dl (70-99); Potassium 4.2 mmol/L (3.5-5.1); Sodium 140 mmol/L (136-145)
[2018-10-09 20:14] LABS: INR 1.9 (0.9-1.1); Prothrombin Time 18.8 Seconds (9.0-12.0)
[2018-10-09] MEDS ORDERED: SODIUM CHLORIDE 0.9% 1000ML 1,000 ML IV SCH (20:15)
[2018-10-09 20:18] LABS: Albumin Globulin Ratio 0.8 (0.9-2); Alkaline Phosphatase 80 U/L (45-117); Bilirubin,Total 0.3 mg/dl (0.2-1); Globulin 3.4 gm/dl (2.5-4.0); Total Protein 6.1 gm/dl (6.4-8.2); Troponin I < 0.015 ng/ml (0-0.045)
--- NOTE | 2018-10-09 21:16 | CT Scan Report ---
CT OF THE HEAD WITHOUT CONTRAST CLINICAL HISTORY: seizure, left AVM COMPARISON STUDY: Head CT September 01, 2018. CT DOSE: 537.48 mGy.cm TECHNIQUE: Helical axial images of the head were obtained without IV contrast. Automated exposure con trol was utilized for the study. A dose lowering technique was utilized adhering to the principles o f ALARA. FINDINGS: No acute hemorrhage is present. A partially calcified left frontal convexity measures 3.3 x 2 cm. This is unchanged in size since prior exam. Associated vasogenic edema has increased. There is no significant mass effect. Ventricular system is normal. Basilar cisterns are patent. There are no extra-axial collections. There are no findings to suggest acute dural sinus thrombosis or acute yamini torial infarct. No significant calvarial abnormalities are present. IMPRESSION: 1. No acute intracranial hemorrhage. 2. No change in size of a 3.3 x 2 cm AVM within the left frontal lobe. Interval increase in mild shadia cent edema without mass effect. Electronically signed by: Shin Larose M.D. 10/09/2018 9:14 PM
[2018-10-09] MEDS ORDERED: ACETAMINOPHEN 325 MG TAB PO PRN (23:52)
[2018-10-09] MEDS ORDERED: ONDANSETRON INJ 2 MG/ML 2 ML VIAL IV PRN (23:52)
[2018-10-09] MEDS ORDERED: NITROGLYCERIN SL 0.4 MG/TAB TAB SL PRN (23:52)
[2018-10-09] MEDS ORDERED: LORazepam 1.5 MG/3 ML VIAL IV PRN (23:52)
--- NOTE | 2018-10-10 00:30 | Emergency Department Note ---
Entered by Ashtyn Hughes acting as a scribe for ED Provider Note CHIEF COMPLAINT: Seizure HISTORY OF PRESENT ILLNESS: The patient is a 73 year old female who presents to the Emergency Room with complaints of an episode of a seizure occurring around 1814 today. Per , the patient was witnessed having a grand mal seizure at home, so her family called EMS. EMS reportedly arrived at the scene 20-30 minutes later and administered the patient Ativan. He notes that the patient is currently nonverbal and awake and alert although she is usually unresponsive after her seizures. He indicates that the patient is also experiencing residual twitching in her right extremities which is consistent with her normally right-sided seizures. He adds that her seizures usually last about 2 hours and are treated with Topamax. Per , the patient was diagnosed with AVM in April and treated with radiation therapy in [place]. He states that the patient experienced 3 grand mal seizures the morning after her first radiation treatment and has experienced 4 seizures since. He notes that she has been admitted to the hospital following each seizure. The reports that the patient takes Depakote regularly and has not missed a dose. He also states that the patient has a known DVT in her right leg and is on Warfarin. HPI limited secondary to altered mental status. REVIEW OF SYSTEMS: HPI limited secondary to altered mental status. PMHx/PSHx: Seizures, AVM, COPD, DVT, non-ischemic cardiomyopathy SOCIAL HISTORY: Patient lives at [facility]. She is and retired. PHYSICAL EXAM: GENERAL: Awake, alert, well-appearing, in no distress HENT: Normocephalic, atraumatic. Oropharynx unremarkable. EYES: PERRL. Normal conjunctiva. Sclera non-icteric. NECK: Inspection normal. Non-tender. Supple. No nuchal rigidity. FROM. No masses. RESPIRATORY: Clear to auscultation. No wheezes. No rales. Normal respiratory effort. CARDIAC: Borderline tachycardic rate. Normal rhythm. No murmurs. No rubs. Extremities warm and well perfused. Pulses equal. No JVD. GI: Soft, non-distended. No tenderness to palpation. No rebound or guarding. No masses. RECTAL: Deferred. MUSCULOSKELETAL: Atraumatic. Chest examination reveals no tenderness. The back is symmetrical on inspection without obvious abnormality. There is no CVA tenderness to palpation. No joint edema. LOWER EXTREMITIES: Calves are equal size bilaterally and non-tender. Trace edema. No discoloration. NEURO: Rhythmic twitching of the right upper and right lower extremities. Altered sensorium. Responds to verbal stimuli but does not respond to commands. SKIN: No rash or jaundice noted. EMERGENCY DEPARTMENT COURSE: 1947: The patient was seen and evaluated by the medical student, Ada Meza, at this time. History and physical were discussed with me. 1952: Past medical records reviewed. The patient was evaluated in room B3B, and a complete history and physical examination were performed. 2007: Rhythmic twitching ceased after Ativan. 2113: I reassessed the patient and she has had no additional seizure activity but is still nonverbal. Her stated that this presentation is consistent but better than her previous seizure episodes. 2111: I reviewed the patient's CT results with Dr. Larose - Radiology. 2137: I called out to [facility] neurology at this time. 2141: I reviewed the patient's case with Dr. Lovell - Neurology, [facility]. Dr. Lovell recommended adding on Keppra. She stated that she will consult on the patient. 2150: I reviewed the patient's case with Dr. Cantrell - Hospitalist, [facility]. Dr. Cantrell will evaluate the patient for further management. MEDICAL DECISION MAKING: Patient placed in seizure precautions immediately upon arrival. Nursing notes reviewed and agree them. Additional history obtained from the patient's significant other The patient's history was concerning for a possible seizure. Differential diagnosis: Etiologies such as breakthrough seizure, status epilepticus, complication of AVM treatment, infection, hypoglycemia, electrolyte abnormalities, cardiac sources, intracerebral event, trauma, toxicologic, neurologic, as well as others were entertained. Physical examination: As above. No signs of trauma. ER treatment provided: IV Ativan Normal saline hydration IV Keppra 1 g IV Depacon 1250 mg On reassessment the patient felt better. Diagnostics interpretation by me: ECG: No acute ischemia. No dysrhythmia. The labs revealed unremarkable CBC except for mild anemia. Chemistry panel unremarkable. Imaging studies: CT scan of the head performed. No bleeding noted. Slight edema noted around the AVM. Consultation: A consultation was placed with the neurologist, Dr. Karena Lovell. She agreed with the above treatment. She recommended initiation of 500 mg Keppra twice daily starting tomorrow morning. She will be available for consultation in hospital. A consultation was placed with the [facility] hospitalist service. The case was discussed and diagnostics were reviewed. The patient was evaluated for admission.. IMPRESSION: Seizure PLAN: Admitted as inpatient The scribe's documentation has been prepared under my direction and personally reviewed by me in its entirety. I confirm that the note above accurately reflects all work, treatment, procedures, and medical decision making performed by me. Impression & Plan Seizure Past Med/Surg History Medical History Hematoma of right thigh (Resolved) Non-ischemic cardiomyopathy (Chronic) Obesity (BMI 30.0-34.9) (Chronic) DVT (deep venous thrombosis) (Chronic) shelter current use of anticoagulants with INR goal of 2.0-3.0 (Chronic) Vasogenic edema (Resolved) AVM (arteriovenous malformation) brain (Chronic) Seizures (Chronic) AA (alcohol abuse) (Resolved) COPD (chronic obstructive pulmonary disease) (Chronic) Surgical History History of appendectomy (Chronic) History of cataract surgery (Chronic) Family History Mother Stroke Heart disease Social History Preferred Language: Austrian Communication Ability: Effective Visual Impairment: No Limitations Beliefs That Will Affect Care: None marital status: Current Living Situation: Spouse Current Living Situation Comment: [facility] current occupational status: retired Feels Safe at Home: Yes Smoking Status: Never smoker Second Hand Exposure: No Hx Alcohol Use: No Hx Substance Use: No Results & Data Vital Signs Vital Signs - 24 hr 10/09/18 19:32 10/09/18 20:38 10/09/18 23:01 Temperature 36.7 C Temperature Source Oral Sepsis Action Taken by Nursing No Action Required Pulse Rate 115 H Pulse Rate [Apical] 95 H Respiratory Rate 27 H 24 Respiratory Effort / Characteristics Non-Labored Spontaneous Respiratory Depth Normal Blood Pressure 128/88 Blood Pressure [Right Arm] 94/75 L Blood Pressure Mean 101 Blood Pressure Mean [Right Arm] 81 Pulse Oximetry 95 95 97 Oxygen Delivery Method Nasal Cannula Nasal Cannula Nasal Cannula Oxygen Flow Rate 2 2 4 Home Medications Current Medication List: was personally reviewed by me Laboratory Data Attestation: I reviewed the patient's lab results. Result diagrams: 10/09/18 19:35 10/09/18 19:35 Lab Results 10/09/18 10/09/18 10/09/18 Range/Units 19:35 19:35 19:35 WBC 7.17 (4.8-10.8) K/uL RBC 3.54 L (4.2-5.4) M/uL Hgb 11.6 L (12.0-16.0) g/dL Hct 35.4 L (37-47) % MCV 100.0 (80-100) fL MCH 32.8 (25-34) pg MCHC 32.8 (32-36) g/dL RDW Std Deviation 58.7 H (36.4-46.3) fL RDW Coeff of Delmer 16.1 H (11.5-14.5) % Plt Count 138 (130-400) K/uL MPV 8.4 (7.4-10.4) fL Immature Gran % (Auto) 2.5 % Neut % (Auto) 50.8 % Lymph % (Auto) 25.9 % Angelina % (Auto) 19.8 % Eos % (Auto) 0.6 % Baso % (Auto) 0.4 % Immature Gran # (Auto) 0.18 H (0.00-0.02) K/uL Neut # (Auto) 3.64 (1.4-6.5) K/uL Lymph # (Auto) 1.86 (1.2-3.4) K/uL Angelina # (Auto) 1.42 H (0.11-0.59) K/uL Eos # (Auto) 0.04 (0-0.5) K/uL Baso # (Auto) 0.03 (0-0.2) K/uL PT 18.8 H (9.0-12.0) Seconds INR 1.9 H (0.9-1.1) Sodium 140 (136-145) mmol/L Potassium 4.2 (3.5-5.1) mmol/L Chloride 102 (98-107) mmol/L Carbon Dioxide 28 (21-32) mmol/L Anion Gap 10.0 (3-11) BUN 40 H (7-18) mg/dl Creatinine 1.30 H (0.6-1.2) mg/dl Est Cr Clr Drug Dosing Not Reportable Est GFR ( Amer) 47.5 Est GFR (Non-Af Amer) 41.0 BUN/Creatinine Ratio 30.8 H (10-20) Glucose 121 H (70-99) mg/dl POC Glucose (70-99) Calcium 8.8 (8.5-10.1) mg/dl Magnesium 2.0 (1.8-2.4) mg/dl Total Bilirubin 0.3 (0.2-1) mg/dl AST 39 H (15-37) U/L ALT 23 (12-78) U/L Alkaline Phosphatase 80 (45-117) U/L Troponin I < 0.015 (0-0.045) ng/ml Total Protein 6.1 L (6.4-8.2) gm/dl Albumin 2.7 L (3.4-5.0) gm/dl Globulin 3.4 (2.5-4.0) gm/dl Albumin/Globulin Ratio 0.8 L (0.9-2) TSH 3.680 (0.300-4.500) uIu/ml Valproic Acid (50-100) mcg/ml 10/09/18 10/10/18 Range/Units 21:57 00:11 WBC (4.8-10.8) K/uL RBC (4.2-5.4) M/uL Hgb (12.0-16.0) g/dL Hct (37-47) % MCV (80-100) fL MCH (25-34) pg MCHC (32-36) g/dL RDW Std Deviation (36.4-46.3) fL RDW Coeff of Delmer (11.5-14.5) % Plt Count (130-400) K/uL MPV (7.4-10.4) fL Immature Gran % (Auto) % Neut % (Auto) % Lymph % (Auto) % Angelina % (Auto) % Eos % (Auto) % Baso % (Auto) % Immature Gran # (Auto) (0.00-0.02) K/uL Neut # (Auto) (1.4-6.5) K/uL Lymph # (Auto) (1.2-3.4) K/uL Angelina # (Auto) (0.11-0.59) K/uL Eos # (Auto) (0-0.5) K/uL Baso # (Auto) (0-0.2) K/uL PT (9.0-12.0) Seconds INR (0.9-1.1) Sodium (136-145) mmol/L Potassium (3.5-5.1) mmol/L Chloride (98-107) mmol/L Carbon Dioxide (21-32) mmol/L Anion Gap (3-11) BUN (7-18) mg/dl Creatinine (0.6-1.2) mg/dl Est Cr Clr Drug Dosing Est GFR ( Amer) Est GFR (Non-Af Amer) BUN/Creatinine Ratio (10-20) Glucose (70-99) mg/dl POC Glucose 100 H (70-99) Calcium (8.5-10.1) mg/dl Magnesium (1.8-2.4) mg/dl Total Bilirubin (0.2-1) mg/dl AST (15-37) U/L ALT (12-78) U/L Alkaline Phosphatase (45-117) U/L Troponin I (0-0.045) ng/ml Total Protein (6.4-8.2) gm/dl Albumin (3.4-5.0) gm/dl Globulin (2.5-4.0) gm/dl Albumin/Globulin Ratio (0.9-2) TSH (0.300-4.500) uIu/ml Valproic Acid 135 H (50-100) mcg/ml Administered Medications Discontinued Medications Lorazepam (Ativan) 0.5 mg in 1 mls @ 1 mls/min IV NOW STA Stop: 10/09/18 20:00 Last Admin: 10/09/18 20:05 Dose: 1 mls/min Documented by: [id number] Levetiracetam 1,000 mg/ (Dextrose) 110 mls @ 440 mls/hr IV NOW STA Stop: 10/09/18 20:13 Last Infusion: 10/09/18 20:51 Dose: 0 mls/hr Documented by: [id number] Admin: 10/09/18 20:14 Dose: 440 mls/hr Documented by: [id number] Valproic Acid 1,250 mg/ (Dextrose) 112.5 mls @ 112.5 mls/hr IV NOW STA Stop: 10/09/18 20:04 Last Infusion: 10/09/18 22:13 Dose: 0 mls/hr Documented by: [id number] Admin: 10/09/18 20:49 Dose: 112.5 mls/hr Documented by: [id number] Sodium Chloride (Nss 1000ml) 1,000 mls @ 80 mls/hr IV .[id number] MILY Stop: 11/08/18 20:14 Last Admin: 10/09/18 20:14 Dose: 80 mls/hr Documented by: [id number] Imaging Data Radiologist's Impression: Radiology results as stated below per my review and the radiologist's interpretation: CT OF THE HEAD WITHOUT CONTRAST CLINICAL HISTORY: seizure, left AVM COMPARISON STUDY: Head CT September 01, 2018. CT DOSE: 537.48 mGy.cm TECHNIQUE: Helical axial images of the head were obtained without IV contrast. Automated exposure control was utilized for the study. A dose lowering technique was utilized adhering to the principles of ALARA. FINDINGS: No acute hemorrhage is present. A partially calcified left frontal convexity measures 3.3 x 2 cm. This is unchanged in size since prior exam. A ssociated vasogenic edema has increased. There is no significant mass effect. Ventricular system is normal. Basilar cisterns are patent. There are no extra- axial collections. There are no findings to suggest acute dural sinus thrombosis or acute territorial infarct. No significant calvarial abnormalities are present. IMPRESSION: 1. No acute intracranial hemorrhage. 2. No change in size of a 3.3 x 2 cm AVM within the left frontal lobe. Interval increase in mild adjacent edema without mass effect. Electronically signed by: Shin Larose M.D. 10/09/2018 9:14 PM ECG Data Attestation: I personally reviewed and interpreted this ECG as follows: Indication: other (seizure) Rate (beats per minute): 98 Rhythm: normal sinus Findings: + other (low voltage QRS, poor R wave progression), + PVC and + Q waves (inferior) Blood Pressure Blood Pressure Findings: Normal blood pressure Discharge Plan Visit Data Chief Complaint: Seizure Stated Complaint: SEIZURE ED Provider: Augusto Cortes Discharge Problem: Seizure Patient Disposition: Admitted As Inpatient Discharge Instructions Interventions: ED Discharge Assessment Last Done: 10/09/18 23:22 The scribe's documentation has been prepared under my direction and personally reviewed by me in its entirety. I confirm that the note above accurately reflects all work, treatment, procedures, and medical decision making performed by me.
[2018-10-10] MEDS: SODIUM CHLORIDE 0.9% 1000ML 1,000 ML IV SCH ×2 (00:55→11:40)
[2018-10-10] MEDS ORDERED: LORazepam 0.5 MG/1 ML VIAL IV ONE (01:01)
--- NOTE | 2018-10-10 01:08 | History and Physical Report ---
DATE OF ADMISSION: 10/09/2018 CHIEF COMPLAINT: Seizures. HISTORY OF PRESENT ILLNESS: This is a 73-year-old female with past medical history significant for COPD, history of DVTs, stress-induced cardiomyopathy which is resolved now, in 01/2018 she sustained a fall with resultant CT of the head demonstrated incidental finding of AV malformation. The patient was referred to [facility] where she received radiation to the AV malformation. She subsequently developed complication of vasogenic edema, seizure /status epilepticus. Patient was again about a month ago and was discharged on 09/07/2018 with seizure episode. At that time she was discharged on Depakote 1500 mg b.i.d. . In her previous admission in August she had healthcare associated pneumonia which was treated with antibiotics;Recent Echo shows her stress-induced cardiomyopathy improved with normal EF. Her Depakote dose was decreased after discharge from the hospital by Neurology to 1000 mg in a.m. and 1250 mg p.m., as the levels were high. She lives with her . When I saw the patient, the had already left home, but I talked to him on the phone and said that the patient suddenly has started getting confused and that she was shaking mostly on right side usually she loses consciousness, but this time she did not lose consciousness. EMS came and gave her some Ativan and brought to the hospital. In the ER still she was a little confused and drowsy, but her right side was still somewhat shaky, so the ER physician gave her home dose of IV Depakote and also gave 1 gram of IV Keppra and dose of Ativan and talked to the neurologist occupational health manager and was advised to continue home medication and place on IV Keppra 500 b.i.d. and she will be evaluated in the a.m. Currently, patient is drowsy, possibly from medication and possibly was postictal. Could not get any review of symptoms from the patient.Hemodynamics are stable. ALLERGIES: SULFA, ANTIBIOTICS, ALCOHOL, OPIATES. PAST MEDICAL HISTORY: As mentioned above. PAST SURGICAL HISTORY: Coronary artery catheterization, cataract surgery, , arm reconstruction in 80s, appendectomy, ovarian cyst removed in her 20s. MEDICATIONS: The patient currently on Depakote ER 1000 mg in a.m. and 250 mg in p.m., Toprol-XL 25 mg p.o. daily, Breo Ellipta 200/25 one puff daily, Lasix 40 mg p.o. b.i.d., potassium chloride 10 mEq p.o. t.i.d., Coumadin as directed, aspirin 81 mg p.o. daily. FAMILY HISTORY: Significant for sister has lung cancer. Mother has dementia, depression, heart disorder, CVA. SOCIAL HISTORY: Lives with . Former smoker, quit in 2010, smoked 1 pack a day for 46 years, history of previous alcohol abuse, but she did not had drink in the last 22 years. No drug use. REVIEW OF SYMPTOMS: Currently unobtainable. PHYSICAL EXAMINATION: GENERAL: The patient is moderate built, drowsy. VITAL SIGNS: Temperature 36.7, pulse in 100s, blood pressure 128/88, oxygen 95% on 2 liters. HEENT: No pallor, no icterus. Pupils equal, round, reactive to light. NECK: No JVD, no neck mass, no carotid bruit. CARDIOVASCULAR: S1, S2 heard, regular rate and rhythm, no murmur, no gallop. RESPIRATORY SYSTEM: Normal AP diameter. No accessory muscle use. No wheezing, no crackles. ABDOMEN: Soft, bowel sounds present. No distention. CENTRAL NERVOUS SYSTEM: Drowsy, responds to pain stimuli. EXTREMITIES: Mild pedal edema, no erythema seen. LABORATORIES: WBC 7.1, hemoglobin 11.6, hematocrit 35.4, platelets 138. PT 18.8, INR 1.9. Sodium 140, potassium 4.2, chloride 102, bicarb 28, BUN 40, creatinine 1.3, serum glucose 121, calcium 8.8, magnesium 2, total bilirubin 0.3, AST 39, ALT 23, alkaline phosphatase 80, troponin I less than 0.015. TSH 3.6. Valproic acid 135. CT of the head, no change in size of 3.3 x 2 cm AVM within left frontal lobe . Interval increase in mild adjacent edema without mass effect. EKG: Sinus rhythm with PVCs at a rate of 98, poor quality data. ASSESSMENT AND PLAN: 1. This is a 73-year-old female who presents with recurrent seizures. The patient was diagnosed with an arteriovenous malformation in 01/2018, incidental finding, was treated with radiation in [place] and developed vasogenic edema and seizure complications and status epilepticus. Last admission, she was discharged on Depakote 1500 b.i.d. but dose was decreased to 1000 in a.m. and 1250 in p.m.levels were high as outpatient. Again comes today with seizure episode with shaking of right side of the body. Was given IV Ativan, IV Depakote and IV Keppra 1000 mg. Currently, somewhat sedated. CT of the head showed small increase in her edema. ER physician talked with the Neurology and advised to give her home medications and add IV Keppra 500 b.i.d. for now. We will get another EEG . Depakote levels again came as 135 higher than normal.Neurology to continue current meds for now.. Will place on IV Ativan p.r.n. for breakthrough seizures. Close monitor on the tele floor. We will keep her n.p.o. for now except meds and seizure precautions. 2. History of ischemic cardiomyopathy. Patient has cardiomyopathy but EF is improved .Yesterday saw Cardiology and was advised to keep on diuretics until the lower extremity edema is improved from deep venous thrombosis. She will continue her home diuretics with potassium supplement. 3. History of chronic deep venous thrombosis on Coumadin. INR is 1.9. We will follow the PT/INR. Continue home Coumadin dose. 4. History of chronic obstructive pulmonary disease, obstructive sleep apnea. Continue home inhalers, currently stable. 5. Hypertension, on Toprol-XL. 6. Deep venous thrombosis prophylaxis, on Coumadin. DISPOSITION: Close monitor in the tele floor. Code status, Level 1, full code only if there is a chance of recovery as per my discussion with . PT and OT prior to discharge. Social Service to help with discharge planning. WILLIAM
[2018-10-10 03:49] LABS: Appearance Urine Clear (Clear); Bilirubin Urine Negative (Negative); Blood Urine Negative (Negative); Color Urine Yellow; Glucose Urine UA Negative (Negative); Ketones Urine Negative (Negative); Leukocyte Esterase Urine Negative (Negative); Nitrite Urine Negative (Negative); Protein Urine Negative (Negative); Specific Gravity Urine 1.014 (1.000-1.030); Urobilinogen Urine Negative (Negative); pH Urine 5.5 (4.5-7.5)
[2018-10-10 05:51] LABS: Basophils # (auto) 0.02 K/uL (0-0.2); Basophils % (auto) 0.4 %; Eosinophils # (auto) 0.04 K/uL (0-0.5); Eosinophils % (auto) 0.7 %; Hematocrit (blood only) 31.1 % (37-47); Hemoglobin 10.2 g/dL (12.0-16.0); Immature Granulocytes # (auto) 0.12 K/uL (0.00-0.02); Immature Granulocytes % (auto) 2.2 %; Lymphocytes # (auto) 1.81 K/uL (1.2-3.4); Lymphocytes % (auto) 33.6 %; Mean Corpuscular Hgb Conc 32.8 g/dL (32-36); Mean Corpuscular Volume 99.7 fL (80-100); Mean Platelet Volume 8.5 fL (7.4-10.4); Monocytes # (auto) 0.95 K/uL (0.11-0.59); Monocytes % (auto) 17.7 %; Neutrophils # (auto) 2.44 K/uL (1.4-6.5); Neutrophils % (auto) 45.4 %; Platelet Count 110 K/uL (130-400); RDW Coefficient of Variation 16.1 % (11.5-14.5); Red Blood Count 3.12 M/uL (4.2-5.4); White Blood Count 5.38 K/uL (4.8-10.8)
[2018-10-10] MEDS ORDERED: PNEUMOCOCCAL POLYSACCHARIDES 25 MCG/0.5 ML VIAL/SYR IM ONE (06:00)
[2018-10-10] MEDS ORDERED: PNEUMOCOCCAL ADMINISTRATION CHARGE ONE (06:00)
[2018-10-10 06:01] LABS: INR 2.1 (0.9-1.1); Prothrombin Time 20.4 Seconds (9.0-12.0)
--- NOTE | 2018-10-10 06:26 | Magnetic Resonance Report ---
MR brain wo con HISTORY: 73 years-old Female cva? Acute strokelike symptoms COMPARISON: CT head 10/09/2018, brain MRI 01/24/2018 TECHNIQUE: MRI the brain without IV contrast. Only the boring machine operator horizontal localizer images in sagittal T1 FLAIR se quence was obtained. The patient was unable to hold still for the study and was reportedly extremely claustrophobic. FINDINGS/IMPRESSION: Sagittal T1 FLAIR images are nondiagnostic secondary to patient motion. Images do not well characteri zed the previously described AVM about the left frontal lobe. Consider completion of the MRI exam whe n the patient is able. The above report was generated using voice recognition software. It may contain grammatical, syntax o r spelling errors. Electronically signed by: Michael Pedro M.D. 10/10/2018 6:25 AM
[2018-10-10 06:32] LABS: BUN Creatinine Ratio 42.7 (10-20); Calcium 8.3 mg/dl (8.5-10.1); Creatinine Clr Calc Pharmacy 52.8 ml/min; Est GFR (Non-African American) 63.9; Magnesium 2.1 mg/dl (1.8-2.4); Potassium 3.9 mmol/L (3.5-5.1)
[2018-10-10] MEDS: POTASSIUM CHLORIDE 10 MEQ TABCR PO SCH ×3 (08:34→16:08)
[2018-10-10] MEDS: FUROSEMIDE 40 MG TAB PO SCH ×2 (08:34→16:09)
[2018-10-10] MEDS: DIVALPROEX EXTENDED RELEASE 500 MG TAB PO SCH (08:35)
[2018-10-10] MEDS: ASPIRIN 81 MG ECTAB PO SCH (08:35)
--- NOTE | 2018-10-10 09:32 | Hospitalist Progress Note ---
Date of Service October 10, 2018 Assessment & Plan (1) Seizure: Patient is a known case of seizure status post radiation treatment for AV malformation diagnosed in 01/2018 with subsequent development of vasogenic edema/seizure complications including status epilepticus at [facility] August 2018 admissiondischarged on Depakote 1500 mg twice daily, dose was decreased 2000 in AM, 1250 in p.m. as levels were high outpatient. Comes to hospital with seizure, postictal phase on admission -Status post IV Depakote, home dose, IV Ativan, IV Keppra loading dose in ED -Continue with IV Keppra BID -Continue with IV Ativan PRN for seizures -Work up- Depakote level 135 (slightly high), CT head-no acute abnormality, no change in size of AVM 3.3 x 2 cm in left frontal lobe, interval increase in mild edema without mass-effect, MRI brainis nondiagnostic secondary to motion, -Neurology on board- Dr Orr will discuss with Dr. Neri who is her neurologist outpatient Present on Admission?: Yes (2) AVM (arteriovenous malformation) brain: Diagnosed coincidentally in 01/2018. Was treated with radiation in [facility], developed subsequent vasogenic edema/seizures/status epilepticus Seizure medications as above (3) COPD (chronic obstructive pulmonary disease): No signs of COPD exacerbation Continue home inhalers (4) Non-ischemic cardiomyopathy: Improvement in ejection fraction with normalization as per last echocardiogram. Was seen by cardiology outpatient prior to the day of admissionadvised to keep diuretics until lower extremity edema improved from DVT. Continue with potassium supplements (5) DVT (deep venous thrombosis): Chronic DVT on Coumadin INR 1.9 on admission (6) Hypertension: Stable Continue with Toprol-XL 25 mg daily (7) Obesity (BMI 30.0-34.9): DVT prophylaxison Coumadin CODE STATUSFull code only if there is chance of recovery as per admitting physicians discussion with . DISPOSITION PT/OT prior to discharge Awaiting neurology recommendations. requesting Home health and training on emergency rx with recurrent seizure and home located far away Updated by bedside Subjective Patient is more awake, alert today per . Does have difficulty expressing herself, speech stammering (per she has had this) Denies any fever, chills, cough, nausea, vomiting, localized weakness No SOB, chest pain. On 2 L oxygen as at home Physical Exam Physical Exam: GENERAL- Awake, alert, oriented to place, not in acute distress HEAD- Atraumatic , normocephalic LUNGS- Air entry bilaterally equal. No rales, rhonchi, crackles, wheezes heard. HEART- Regular rate and rhythm. No murmurs ABDOMEN- Soft, non tender, non distended, Bowel sounds heard. EXTREMITIES- Good peripheral pulses, no edema NEUROMUSCULAR- AAOX1, Speech-stammers, No focal deficits grossly. Not too cooperative with exam Results & Data Vital Signs (Past 12 Hours) Vital Signs Temp Pulse Pulse Resp BP BP Pulse Ox 10/10/18 08:04 36.8 C 88 18 134/64 96 10/10/18 03:22 36.6 C 91 H 20 119/81 100 10/10/18 00:28 95 H 117/77 99 10/09/18 23:01 95 H 24 94/75 L 97
--- NOTE | 2018-10-10 14:16 | Neurology Consultation ---
Date of Consultation October 10, 2018 Assessment & Plan (1) Seizure: 1. repeat MRI to r/o stroke -MRI brain non diagnostic 2. avoid ativan as patient is currently very lethargic 3. continue depakote 1000 mg am and 1500 pm 4. decrease Keppra to 250 mg once daily x 7 days then increase to 250 mg twice daily - 500 mg was tried in the past with too much sedation, would like to try to increase very slowly to avodi 5. rescue seizure should be issues at discharge. 1 mg ativan SL, repeat if not stopped after 5 minutes (return of seizure), then if not stopped after 5 minutes rectal diastat 5mg/ml x 1. if continued seizures call 911 6. will need some instruction for rescue medications. 7. If patient is unable to tolerate Keppra, options are trileptal, Zongran, vimpat. 8. EEG no seizure focus , slowing preliminary read Supervising Physician Co-Signing Physician Notes I have seen and discussed above patient with Dr Karena Lovell, neurology PT seen and examined, hx reviewed with ER and Kaerna Ford. Poss partial complex status, resolved related to AVM. on Exam pt sleepy, follows commands, exp aphasia. No field cut, no obvious asymmetric weakness. Some tremor with intention. Some motor impersistence v asterixis. P. Additional low dose Keppra with gradual escalation. Continue current dose of Depakote. A home rescue protocol as determined by Dr Neri and YOANNA Lyle. Repeat MRI brain when pt cooperative. No need to restart steroids at present. SONIA Lovell MD History of Present Illness Reason for Consultation: recurrent seizure Attending Physician: Deena Meza MD History of Present Illness Kathy is a 73 year old female with PMH - COPD, history of DVTs, stress-induced cardiomyopathy,01/2018 she sustained a fall with resultant CT of the head demonstrated incidental finding of AV malformation. She radiation to the AVM and developed vasogenic edema, seizure /status epilepticus. Her Depakote level was increased to 1500 mg BID but she decreased after he level was supratherapeutic. She is now on 1000 mg am 1250 mg pm. She lives with her and he states she had an episode of confusion and shaking mostly on right side but did not loose consciousness. EMS gave her some Ativan. In the ER still she was a little confused and drowsy, but her right side was still somewhat shaky. She was then given IV Depakote, IV Keppra 1g and dose of Ativan and talked to the neurologist special education paraeducator and was advised to continue home medication and placed on IV Keppra 500 b.i.d. Currently she is awake and responding but still having some word finding issues. An MRI was done to r/o stroke but she was unable to keep still for the imaging. denies CP, SOB, abdominal pain, one sided weakness, numbness tingling, N, V. Allergies Allergy/AdvReac Type Severity Reaction Status Date / Time Sulfa (Sulfonamide Allergy Mild rash Verified 10/09/18 20:37 Antibiotics) alcohol Allergy Unknown Recovering Verified 10/09/18 20:37 Alcoholic Opioids - Morphine Analogues AdvReac Unknown HISTORY OF Verified 10/09/18 20:37 ADDICTION Home Medications Home Medications Medication Instructions Recorded Confirmed Type Incruse Ellipta 1 inh INHALATION QAM 04/11/18 10/09/18 History aspirin [Aspir-81] 81 mg PO QAM 04/11/18 10/09/18 History divalproex 1,000 mg PO QAM 10/09/18 10/09/18 History divalproex 1,250 mg PO QPM 10/09/18 10/09/18 History fluticasone furoate-vilanterol 1 inh INHALATION QAM 10/09/18 10/09/18 History [Breo Ellipta] furosemide 40 mg PO BIDM 10/09/18 10/09/18 History metoprolol succinate 25 mg PO QDD 10/09/18 10/09/18 History potassium chloride [Klor-Con M10] 10 meq PO TIDM 10/09/18 10/09/18 History warfarin [Coumadin] 5 mg PO QDD 10/09/18 10/09/18 History Patient History Medical History Hematoma of right thigh (Resolved) Non-ischemic cardiomyopathy (Chronic) Obesity (BMI 30.0-34.9) (Chronic) DVT (deep venous thrombosis) (Chronic) 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 with INR goal of 2.0-3.0 (Chronic) Vasogenic edema (Resolved) AVM (arteriovenous malformation) brain (Chronic) Seizures (Chronic) AA (alcohol abuse) (Resolved) COPD (chronic obstructive pulmonary disease) (Chronic) Surgical History History of appendectomy (Chronic) History of cataract surgery (Chronic) Family History Mother Stroke Heart disease Social History Preferred Language: Welsh Communication Ability: Impaired Communication Ability Comment: pt currently has expressive aphasia and is unable to follow commands Visual Impairment: No Limitations Sewer Digger Required: No Beliefs That Will Affect Care: None marital status: Current Living Situation: Spouse Current Living Situation Comment: [facility] current occupational status: retired Feels Safe at Home: Yes Smoking Status: Former smoker Second Hand Exposure: No Hx Alcohol Use: No Hx Substance Use: No Physical Exam Physical Exam: Physical Exam: Constitutional: appearance nourished, healthy, drowsy Ears, Nose, Mouth and Throat: mucous membranes moist, no injection and skin normal, eyes normal Cardiovascular: normal S-1 and S-2 and regular rate and rhythm Respiratory: course breath sounds Musculoskeletal: no peripheral edema and good distal pulses Skin: no stigmata of neurocutaneous disease noted and normal and intact pupils equal miotic NEUROLOGIC EXAMINATION: Mental status: Alert and interactive voice command Oriented to person Speech slurred speech with forming words but very drowsy Cranial Nerves smile eye brow raise symmetric Gait/Stance: Posture sitting up in bed Strength: unable to assess due to drowsy MS Results & Data Vital Signs (Past 12 Hours) Vital Signs Temp Pulse Pulse Resp BP Pulse Ox 10/10/18 08:04 36.8 C 88 18 134/64 96 10/10/18 03:22 36.6 C 91 H 20 119/81 100 Laboratory Results Abnormal lab results 10/09/18 10/09/18 10/09/18 Range/Units 19:35 19:35 19:35 RBC 3.54 L (4.2-5.4) M/uL Hgb 11.6 L (12.0-16.0) g/dL Hct 35.4 L (37-47) % RDW Std Deviation 58.7 H (36.4-46.3) fL RDW Coeff of Delmer 16.1 H (11.5-14.5) % Plt Count (130-400) K/uL Immature Gran # (Auto) 0.18 H (0.00-0.02) K/uL Wilson # (Auto) 1.42 H (0.11-0.59) K/uL PT 18.8 H (9.0-12.0) Seconds INR 1.9 H (0.9-1.1) Chloride (98-107) mmol/L BUN 40 H (7-18) mg/dl Creatinine 1.30 H (0.6-1.2) mg/dl BUN/Creatinine Ratio 30.8 H (10-20) Glucose 121 H (70-99) mg/dl POC Glucose (70-99) Calcium (8.5-10.1) mg/dl AST 39 H (15-37) U/L Total Protein 6.1 L (6.4-8.2) gm/dl Albumin 2.7 L (3.4-5.0) gm/dl Albumin/Globulin Ratio 0.8 L (0.9-2) Valproic Acid (50-100) mcg/ml 10/09/18 10/10/18 10/10/18 Range/Units 21:57 00:11 05:21 RBC 3.12 L (4.2-5.4) M/uL Hgb 10.2 L (12.0-16.0) g/dL Hct 31.1 L (37-47) % RDW Std Deviation 59.0 H (36.4-46.3) fL RDW Coeff of Delmer 16.1 H (11.5-14.5) % Plt Count 110 L (130-400) K/uL Immature Gran # (Auto) 0.12 H (0.00-0.02) K/uL Wilson # (Auto) 0.95 H (0.11-0.59) K/uL PT (9.0-12.0) Seconds INR (0.9-1.1) Chloride (98-107) mmol/L BUN (7-18) mg/dl Creatinine (0.6-1.2) mg/dl BUN/Creatinine Ratio (10-20) Glucose (70-99) mg/dl POC Glucose 100 H (70-99) Calcium (8.5-10.1) mg/dl AST (15-37) U/L Total Protein (6.4-8.2) gm/dl Albumin (3.4-5.0) gm/dl Albumin/Globulin Ratio (0.9-2) Valproic Acid 135 H (50-100) mcg/ml 10/10/18 10/10/18 Range/Units 05:21 05:30 RBC (4.2-5.4) M/uL Hgb (12.0-16.0) g/dL Hct (37-47) % RDW Std Deviation (36.4-46.3) fL RDW Coeff of Delmer (11.5-14.5) % Plt Count (130-400) K/uL Immature Gran # (Auto) (0.00-0.02) K/uL Wilson # (Auto) (0.11-0.59) K/uL PT 20.4 H (9.0-12.0) Seconds INR 2.1 H (0.9-1.1) Chloride 109 H (98-107) mmol/L BUN 38 H (7-18) mg/dl Creatinine (0.6-1.2) mg/dl BUN/Creatinine Ratio 42.7 H (10-20) Glucose (70-99) mg/dl POC Glucose (70-99) Calcium 8.3 L (8.5-10.1) mg/dl AST (15-37) U/L Total Protein (6.4-8.2) gm/dl Albumin (3.4-5.0) gm/dl Albumin/Globulin Ratio (0.9-2) Valproic Acid (50-100) mcg/ml Diagnostic Findings MRI brain-Sagittal T1 FLAIR images are nondiagnostic secondary to patient motion. Images do not well characterized the previously described AVM about the left frontal lobe. Consider completion of the MRI exam when the patient is able. CT head=No acute intracranial hemorrhage. No change in size of a 3.3 x 2 cm AVM within the left frontal lobe. Interval increase in mild adjacent edema without mass effect.
[2018-10-10] MEDS: WARFARIN SOD 5 MG TAB PO SCH (16:07)
[2018-10-10] MEDS: METOPROLOL SUCC 25MG EXT REL TAB PO SCH (16:09)
--- NOTE | 2018-10-10 18:41 | Procedure Note ---
EEG Procedure Note Date of Service October 10, 2018 Start / End Times Start Time: 0800 End Time: 0830 Referring Physician Carl Cantrell MD History breakthrough seizures originating left hemisphere due to avm Home Medication List Home Medications Medication Instructions Recorded Confirmed Type Incruse Ellipta 1 inh INHALATION QAM 04/11/18 10/09/18 History aspirin [Aspir-81] 81 mg PO QAM 04/11/18 10/09/18 History divalproex 1,000 mg PO QAM 10/09/18 10/09/18 History divalproex 1,250 mg PO QPM 10/09/18 10/09/18 History fluticasone furoate-vilanterol 1 inh INHALATION QAM 10/09/18 10/09/18 History [Breo Ellipta] furosemide 40 mg PO BIDM 10/09/18 10/09/18 History metoprolol succinate 25 mg PO QDD 10/09/18 10/09/18 History potassium chloride [Klor-Con M10] 10 meq PO TIDM 10/09/18 10/09/18 History warfarin [Coumadin] 5 mg PO QDD 10/09/18 10/09/18 History Inpatient Medication List [facility] ([facility]rin [facility]ab) [facility] [place] [place] Stop: 11/09/18 08:59 Last Admin: 10/10/18 08:35 Dose: 81 mg Documented by: [id number] Divalproex Sodium (Depakote Extended Release) 1,000 mg [facility] [place] Stop: 11/09/18 08:59 Last Admin: 10/10/18 08:35 Dose: 1,000 mg Documented by: [id number] Furosemide (Lasix) 40 mg PO BIDM [facility] Stop: 11/09/18 07:59 Last Admin: 10/10/18 16:09 Dose: 40 mg Documented by: [id number] Admin: 10/10/18 08:34 Dose: 40 mg Documented by: [id number] Levetiracetam 500 mg/ Dextrose 105 mls @ 420 mls/hr IV Q12H [facility] Stop: 11/09/18 07:59 Last Infusion: 10/10/18 09:04 Dose: 0 mls/hr Documented by: [id number] Admin: 10/10/18 08:34 Dose: 420 mls/hr Documented by: [id number] Metoprolol Succinate (Toprol Xl) 25 mg PO QDD [facility] Stop: 11/09/18 16:29 Last Admin: 10/10/18 16:09 Dose: 25 mg Documented by: [id number] Miscellaneous (Order Awaiting Action) 1 ea N/A QS [facility] Stop: 11/09/18 07:59 Last Admin: 10/10/18 16:07 Dose: Not Given Documented by: [id number] Admin: 10/10/18 08:35 Dose: 1 ea Documented by: [id number] Miscellaneous (Order Awaiting Action) 1 ea N/A QS [facility] Stop: 11/09/18 07:59 Last Admin: 10/10/18 16:08 Dose: 1 ea Documented by: [id number] Admin: 10/10/18 08:35 Dose: 1 ea Documented by: [id number] Potassium Chloride (Klor-Con M10) 10 meq PO TIDM [facility] Stop: 11/09/18 07:59 Last Admin: 10/10/18 16:08 Dose: 10 meq Documented by: [id number] Admin: 10/10/18 11:42 Dose: 10 meq Documented by: [id number] Admin: 10/10/18 08:34 Dose: 10 meq Documented by: [id number] Warfarin Sodium (Coumadin) 5 mg PO DAILY@1600 [facility] Stop: 11/09/18 15:59 Last Admin: 10/10/18 16:07 Dose: 5 mg Documented by: [id number] Discontinued Medications Lorazepam (Ativan) 0.5 mg in 1 mls @ 1 mls/min IV NOW STA Stop: 10/09/18 20:00 Last Admin: 10/09/18 20:05 Dose: 1 mls/min Documented by: [id number] Levetiracetam 1,000 mg/ (Dextrose) 110 mls @ 440 mls/hr IV NOW STA Stop: 10/09/18 20:13 Last Infusion: 10/09/18 20:51 Dose: 0 mls/hr Documented by: [id number] Admin: 10/09/18 20:14 Dose: 440 mls/hr Documented by: [id number] Valproic Acid 1,250 mg/ (Dextrose) 112.5 mls @ 112.5 mls/hr IV NOW STA Stop: 10/09/18 20:04 Last Infusion: 10/09/18 22:13 Dose: 0 mls/hr Documented by: [id number] Admin: 10/09/18 20:49 Dose: 112.5 mls/hr Documented by: [id number] Sodium Chloride (Nss 1000ml) 1,000 mls @ 80 mls/hr IV .[id number] [facility] Stop: 11/08/18 20:14 Last Infusion: 10/10/18 02:03 Dose: 0 mls/hr Documented by: [id number] Admin: 10/09/18 20:14 Dose: 80 mls/hr Documented by: [id number] Sodium Chloride (Nss 1000ml) 1,000 mls @ 100 mls/hr IV .Q10H [facility] Stop: 11/09/18 00:29 Last Admin: 10/10/18 11:40 Dose: 100 mls/hr Documented by: [id number] Infusion: 10/10/18 10:55 Dose: 100 mls/hr Documented by: [id number] Admin: 10/10/18 00:55 Dose: 100 mls/hr Documented by: [id number] Lorazepam (Ativan) 0.5 mg in 1 mls @ 1 mls/min IV ONE ONE Stop: 10/10/18 01:02 Last Admin: 10/10/18 00:55 Dose: 1 mls/min Documented by: [id number] Description This is a 21 electrode EEG with a single channel dedicated to limited EKG. The electrodes were placed in accordance with the International 10-20 system. This bedisde recording was done during wakefulness alternating with drowsiness and did not inculed photic stumulation or hyperventilation video recording reveals a fair amoutn of head and body movements with accompanying artefacts due to muscle activity A posterior background rhythn generally in the low alpha to upper theta range is seen symmetrically and posteriorly and central low to modest frequency theta delta activity is present in a symmetrical fashion with some anterior beta activty No clear cut potentially epileptogenic patterns are seen Interpretation Mildly to moderately slow eeg with no focality and no associated potentially epileptic discharges Clinical Correlation study is consistent with a mild generalized nonspecific encephalopathy with no e vidence for ongoing subclinical seizure activity Augusto Neri MD
[2018-10-10] MEDS ORDERED: DIVALPROEX EXTENDED RELEASE 250 MG TABCR PO SCH (21:00)
[2018-10-11 05:50] LABS: Hemoglobin 11.2 g/dL (12.0-16.0); Mean Corpuscular Hgb Conc 32.9 g/dL (32-36); Mean Corpuscular Volume 97.7 fL (80-100); Mean Platelet Volume 8.2 fL (7.4-10.4); Platelet Count 104 K/uL (130-400); RDW Standard Deviation 57.3 fL (36.4-46.3); Red Blood Count 3.48 M/uL (4.2-5.4); White Blood Count 5.33 K/uL (4.8-10.8)
[2018-10-11 06:02] LABS: INR 2.4 (0.9-1.1)
[2018-10-11 06:24] LABS: BUN Creatinine Ratio 36.1 (10-20); Calcium 8.7 mg/dl (8.5-10.1); Creatinine Clr Calc Pharmacy 56.6 ml/min; Est GFR (African American) 80.5; Est GFR (Non-African American) 69.4
[2018-10-11] MEDS: DIVALPROEX EXTENDED RELEASE 500 MG TAB PO SCH (08:46)
[2018-10-11] MEDS: FUROSEMIDE 40 MG TAB PO SCH ×2 (08:46→16:09)
[2018-10-11] MEDS: ASPIRIN 81 MG ECTAB PO SCH (08:46)
[2018-10-11] MEDS: POTASSIUM CHLORIDE 10 MEQ TABCR PO SCH ×3 (08:47→16:10)
--- NOTE | 2018-10-11 14:03 | Neurology Progress Note ---
Date of Service October 11, 2018 Assessment & Plan (1) Seizure: 1. repeat MRI to r/o stroke -MRI brain non diagnostic 2. avoid ativan as patient is currently very lethargic 3. continue depakote 1000 mg am and 1500 pm 4. decrease Keppra to 250 mg once daily x 7 days then increase to 250 mg twice daily - 500 mg was tried in the past with too much sedation, would like to try to increase very slowly to avoid will need to monitor BUN/creat along with increases. 5. rescue seizure should be issues at discharge. 1 mg ativan SL, repeat if not stopped after 5 minutes (return of seizure), then if not stopped after 5 minutes rectal diastat 5mg/ml x 1. if continued seizures call 911 6. will need some instruction for rescue medications. 7. If patient is unable to tolerate Keppra, options are trileptal, Zongran, vimpat. 8. EEG no seizure focus , slowing preliminary read 9. will see patient in clinic Supervising Physician Co-Signing Physician Notes I have seen and discussed above patient with Dr Karena Lovell, neurology Pt seen and examined. Better language function today. P, dc, meds as above, discussed sz rescue medications. F/u with neurosurgery and [facility]. SONIA Lovell MD Ani Chavez is a 73 year old female with PMH - COPD, history of DVTs, stress-induced cardiomyopathy,01/2018 she sustained a fall with resultant CT of the head demonstrated incidental finding of AV malformation. She radiation to the AVM and developed vasogenic edema, seizure /status epilepticus. Her Depakote level was increased to 1500 mg BID but she decreased after he level was supratherapeutic. She is now on 1000 mg am 1250 mg pm. She lives with her and he states she had an episode of confusion and shaking mostly on right side but did not loose consciousness. EMS gave her some Ativan. In the ER still she was a little confused and drowsy, but her right side was still somewhat shaky. She was then given IV Depakote, IV Keppra 1g and dose of A tivan and talked to the neurologist computational mathematician and was advised to continue home medication and placed on IV Keppra 500 b.i.d. Currently she is awake and responding but still having some word finding issues. An MRI was done to r/o stroke but she was unable to keep still for the imaging. Today she is able to form a sentence and states she wants to go home. no further seizure activity. She has been up and walking with PT and will resume home PT. denies CP, SOB, abdominal pain, one sided weakness, numbness tingling, N, V. Physical Exam Physical Exam: Gen: alert NAD smile symmetric lungs course breath sounds CV RRR raises arms with no difficulty biceps triceps 4+/5 hip flex 4+/5 sensation intake to light and cool touch Results & Data Vital Signs (Past 12 Hours) Vital Signs Temp Pulse Resp BP Pulse Ox Pulse Ox 10/11/18 11:54 37.1 C 75 20 82/56 L 96 10/11/18 11:31 96 10/11/18 10:50 93 10/11/18 07:45 36.7 C 75 17 90/57 L 96 10/11/18 05:08 37.2 C 80 20 109/67 96 Laboratory Results Abnormal lab results 10/11/18 10/11/18 10/11/18 Range/Units 05:35 05:35 05:35 RBC 3.48 L (4.2-5.4) M/uL Hgb 11.2 L (12.0-16.0) g/dL Hct 34.0 L (37-47) % RDW Std Deviation 57.3 H (36.4-46.3) fL RDW Coeff of Delmer 16.0 H (11.5-14.5) % Plt Count 104 L (130-400) K/uL PT 23.0 H (9.0-12.0) Seconds INR 2.4 H (0.9-1.1) Chloride 108 H (98-107) mmol/L BUN 30 H (7-18) mg/dl BUN/Creatinine Ratio 36.1 H (10-20) Diagnostic Findings no further imaging
--- NOTE | 2018-10-11 15:28 | Hospitalist Progress Note ---
Date of Service October 11, 2018 Assessment & Plan (1) Seizure: Patient is a known case of seizure status post radiation treatment for AV malformation diagnosed in 01/2018 with subsequent development of vasogenic edema/seizure complications including status epilepticus at [facility] August 2018 admissiondischarged on Depakote 1500 mg twice daily, dose was decreased 2000 in AM, 1250 in p.m. as levels were high outpatient. Comes to hospital with seizure, postictal phase on admission -Status post IV Depakote, home dose, IV Ativan, IV Keppra loading dose in ED -On IV keppra 500 mg BID here ---> decrease to 250 mg daily x 7 days, increase to 250 mg BID --> 500 mg BID slowly -Continue with Ativan PRN for seizures. Will prescribe Rescue seizure treatment on discharge1 mg Ativan sublingual, repeat if not stopped after 5 minutes, then if not stopped after 5 minutes rectal Diastat 5 mg/ML x1. If continued seizures call 911 -Work up- Depakote level 135 (slightly high), CT head-no acute abnormality, no change in size of AVM 3.3 x 2 cm in left frontal lobe, interval increase in mild edema without mass-effect, MRI brainis nondiagnostic secondary to motion, -Neurology on board- Appreciate neurology recommendations (2) AVM (arteriovenous malformation) brain: Diagnosed coincidentally in 01/2018. Was treated with radiation in [facility], developed subsequent vasogenic edema/seizures/status epilepticus Seizure medications as above (3) COPD (chronic obstructive pulmonary disease): No signs of COPD exacerbation Continue home inhalers (4) Non-ischemic cardiomyopathy: Improvement in ejection fraction with normalization as per last echocardiogram. Was seen by cardiology outpatient prior to the day of admissionadvised to keep diuretics until lower extremity edema improved from DVT. -Continue with potassium supplements (5) DVT (deep venous thrombosis): Chronic DVT on Coumadin INR 1.9 on admission -Now 2.4 (6) Hypertension: Stable Continue with Toprol-XL 25 mg daily (7) Obesity (BMI 30.0-34.9): DVT prophylaxison Coumadin CODE STATUSFull code only if there is chance of recovery as per admitting physicians discussion with . DISPOSITION PT/OT - cleared for home with PT Eager to be discharged. Ok to discharge home today Updated by bedside. Agreeable with plan Subjective Subjective Patient is more awake, alert , Oriented x2. Speech is significantly improved, near baseline Denies any fever, chills, cough, nausea, vomiting, localized weakness No SOB, chest pain. On 2 L oxygen as at home Physical Exam Physical Exam: GENERAL- Awake, alert, oriented to place, not in acute distress HEAD- Atraumatic , normocephalic LUNGS- Air entry bilaterally equal. No rales, rhonchi, crackles, wheezes heard. HEART- Regular rate and rhythm. No murmurs ABDOMEN- Soft, non tender, non distended, Bowel sounds heard. EXTREMITIES- Good peripheral pulses, no edema NEUROMUSCULAR- AAOX1, Speech-stammers, No focal deficits grossly. Not too cooperative with exam Results & Data Vital Signs (Past 12 Hours) Vital Signs Temp Pulse Resp BP Pulse Ox Pulse Ox 10/11/18 11:54 37.1 C 75 20 82/56 L 96 10/11/18 11:31 96 10/11/18 10:50 93 10/11/18 07:45 36.7 C 75 17 90/57 L 96 10/11/18 05:08 37.2 C 80 20 109/67 96
--- NOTE | 2018-10-11 15:36 | Discharge Summary ---
Date of Service October 11, 2018 Admission HPI Per Admitting Provider HISTORY OF PRESENT ILLNESS: This is a 73-year-old female with past medical history significant for COPD, history of DVTs, stress-induced cardiomyopathy which is resolved now, in 01/2018 she sustained a fall with resultant CT of the head demonstrated incidental finding of AV malformation. The patient was referred to [facility] where she received radiation to the AV malformation. She subsequently developed complication of vasogenic edema, seizure /status epilepticus. Patient was again about a month ago and was discharged on 09/07/2018 with seizure episode. At that time she was discharged on Depakote 1500 mg b.i.d. . In her previous admission in August she had healthcare associated pneumonia which was treated with antibiotics;Recent Echo shows her stress-induced cardiomyopathy improved with normal EF. Her Depakote dose was decreased after discharge from the hospital by Neurology to 1000 mg in a.m. and 1250 mg p.m., as the levels were high. She lives with her . When I saw the patient, the had already left home, but I talked to him on the phone and said that the patient suddenly has started getting confused and that she was shaking mostly on right side usually she loses consciousness, but this time she did not lose consciousness. EMS came and gave her some Ativan and brought to the hospital. 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 and she will be evaluated in the a.m. Currently, patient is drowsy, possibly from medication and possibly was postictal. Could not get any review of symptoms from the patient.Hemodynamics are stable. Principal Diagnosis 1. Recurrent seizures 2. Postictal phase, resolved Secondary diagnoses on discharge 1. History of ischemic cardiomyopathy 2. Chronic DVT on Coumadin 3. COPD 4. Hypertension Discharge Exam GENERAL- Awake, alert, oriented to place, not in acute distress HEAD- Atraumatic , normocephalic LUNGS- Air entry bilaterally equal. No rales, rhonchi, crackles, wheezes heard. HEART- Regular rate and rhythm. No murmurs ABDOMEN- Soft, non tender, non distended, Bowel sounds heard. EXTREMITIES- Good peripheral pulses, no edema NEUROMUSCULAR- AAOX1, Speech-stammers, No focal deficits grossly. Not too cooperative with exam Discharge Data Allergies Allergy/AdvReac Type Severity Reaction Status Date / Time Sulfa (Sulfonamide Allergy Mild rash Verified 10/09/18 20:37 Antibiotics) alcohol Allergy Unknown Recovering Verified 10/09/18 20:37 Alcoholic Opioids - Morphine Analogues AdvReac Unknown HISTORY OF Verified 10/09/18 20:37 ADDICTION Consultations 10/09/18 21:48 ED Decision to Admit Stat 10/09/18 23:52 Consult Case Management - Discharge Planning Routine 10/10/18 08:00 Consult Neurology Routine Ordered Studies 10/09/18 19:49 CT head/brain wo con Stat 10/10/18 00:24 MR brain wo con Urgent Hospital Course (1) Seizure: Patient is a known case of seizure status post radiation treatment for AV malformation diagnosed in 01/2018 with subsequent development of vasogenic edema/seizure complications including status epilepticus at [facility] August 2018 admissiondischarged on Depakote 1500 mg twice daily, dose was decreased 2000 in AM, 1250 in p.m. as levels were high outpatient. Comes to hospital with seizure, postictal phase on admission -Status post IV Depakote, home dose, IV Ativan, IV Keppra loading dose in ED -On IV keppra 500 mg BID here ---> decrease to 250 mg daily x 7 days, increase to 250 mg BID --> 500 mg BID slowly -Continue with Ativan PRN for seizures. Will prescribe Rescue seizure treatment on discharge1 mg Ativan sublingual, repeat if not stopped after 5 minutes, then if not stopped after 5 minutes rectal Diastat 5 mg/ML x1. If continued seizures call 911 -Work up- Depakote level 135 (slightly high), CT head-no acute abnormality, no change in size of AVM 3.3 x 2 cm in left frontal lobe, interval increase in mild edema without mass-effect, MRI brainis nondiagnostic secondary to motion, -Neurology on board- Appreciate neurology recommendations (2) AVM (arteriovenous malformation) brain: Diagnosed coincidentally in 01/2018. Was treated with radiation in [facility], developed subsequent vasogenic edema/seizures/status epilepticus Seizure medications as above (3) COPD (chronic obstructive pulmonary disease): No signs of COPD exacerbation Continue home inhalers (4) Non-ischemic cardiomyopathy: Improvement in ejection fraction with normalization as per last echocardiogram. Was seen by cardiology outpatient prior to the day of admissionadvised to keep diuretics until lower extremity edema improved from DVT. -Continue with potassium supplements (5) DVT (deep venous thrombosis): Chronic DVT on Coumadin INR 1.9 on admission -Now 2.4 (6) Hypertension: Stable Continue with Toprol-XL 25 mg daily (7) Obesity (BMI 30.0-34.9): DVT prophylaxison Coumadin CODE STATUSFull code only if there is chance of recovery as per admitting physicians discussion with . DISPOSITION PT/OT - cleared for home with PT Eager to be discharged. Ok to discharge home today Updated by bedside. Agreeable with plan Total Time Total Time Spent Total Time Spent (In Minutes): 38 minutes Discharge Plan Discharge Items Patient Disposition: Home - Home Health Services Reason For Visit: SEIZURES Discharge Diagnosis: 1. Recurrent Seizures Discharge Goals: Decrease discomfort and Improve disease control Activity: Resume your previous activity Non-emergency contact: Primary Care Provider and Neurologist Call non-emergency contact if: your symptoms worsen Follow-up/Referrals: Augusto Neri MD [Physician] - 10/23/18 (They will call you for appt time. Appt is with LAYNE Ford) Marilin Flor MD [Physician] - 10/17/18 10:20 am Diet: Heart Healthy and Low Sodium (2gm) Addtl Provider Instructions: MEDICATION CHANGES: -Continue with Depakote 1000 mg in AM, 1250 mg in PM as prior to admission -New medication- Keppra 250 mg PO daily x 7 days followed by increase to 250 mg PO twice a day x 1 week and follow up with neurology on 10/23/18 SEIZURE RESCUE TREATMENT: 1 mg Ativan SL, repeat if not stopped after 5 minutes (return of seizure), then if not stopped after 5 minutes rectal diastat 5mg/ml x 1. if continued seizures call 911 Prescriptions: New levetiracetam [Keppra] 250 mg tablet 250 mg PO UD 28 Days Qty: 28 RF: 0 lorazepam [Ativan] 1 mg tablet 1 mg BUCCAL DAILY PRN (Reason: as needed for seizure) Qty: 14 RF: 0 diazepam [Diastat] 2.5 mg kit 5 mg MI Q12H PRN (Reason: seizure ) Qty: 7 RF: 0 Continued aspirin [Aspir-81] 81 mg Tablet,Delayed Release (Dr/Ec) 81 mg PO QAM RF: 0 Incruse Ellipta 62.5 mcg/actuation Blister With Device 1 inh INHALATION QAM RF: 0 divalproex 500 mg Tablet Extended Release 24 Hr 1,250 mg PO QPM RF: 0 Breo Ellipta 200-25 mcg/dose Blister With Device 1 inh INHALATION QAM RF: 0 furosemide 40 mg tablet 40 mg PO BIDM RF: 0 divalproex 500 mg tablet extended release 24 hr 1,000 mg PO QAM RF: 0 warfarin [Coumadin] 5 mg tablet 5 mg PO QDD RF: 0 metoprolol succinate 25 mg tablet extended release 24 hr 25 mg PO QDD RF: 0 potassium chloride [Klor-Con M10] 10 mEq tablet,ER particles/crystals 10 meq PO TIDM RF: 0 Stand-Alone Forms: [facility]/Other Patient Handouts: ED Seizure Recurrent Discharge Orders: Discharge Order (Routine); Ordered 10/11/18 Ordered By: Deena Meza Admission Data Admit Date/Time: 10/09/18 22:49 Attending Provider: Deena Meza Admit Provider: Pritesh Cantrell Primary Care Provider: Tanesha Ponce Other Providers: Pritesh Cantrell ; Karena Ford ; Augusto Neri ; Karena Lovell ; Arielle Lopez ; Claudio Connell ; Fernanda Will Service: Telemetry
[2018-10-11] MEDS: WARFARIN SOD 5 MG TAB PO SCH (16:08)
[2018-10-11] MEDS: METOPROLOL SUCC 25MG EXT REL TAB PO SCH (16:09)
[2018-10-12] MEDS ORDERED: levETIRAcetam 250 MG in DEXTROSE 5% 100 ML IV SCH (09:00)
== END 2018-10-11 16:19 | disposition home health service (06) | DRG 100 ==
LOC: ED 19:25 → 2S 22:49 → SUATTDRO 22:49 → 2S 23:22

== ENCOUNTER 2019-02-25 17:03 | Inpatient (IN) ==
[2019-02-25] MEDS ORDERED: SODIUM CHLORIDE 0.9% 250 ML IV PRN ×2 (18:03→21:35)
[2019-02-25] MEDS ORDERED: SODIUM CHLORIDE 0.9% 1000ML 1,000 ML IV SCH (18:15)
[2019-02-25 18:37] LABS: Basophils # (auto) 0.01 K/uL (0-0.2); Basophils % (auto) 0.2 %; Eosinophils # (auto) 0.01 K/uL (0-0.5); Eosinophils % (auto) 0.2 %; Hematocrit (blood only) 22.2 % (37-47); Hemoglobin 7.4 g/dL (12.0-16.0); Immature Granulocytes # (auto) 0.05 K/uL (0.00-0.02); Lymphocytes # (auto) 1.56 K/uL (1.2-3.4); Lymphocytes % (auto) 31.3 %; Mean Corpuscular Hemoglobin 34.1 pg (25-34); Mean Corpuscular Hgb Conc 33.3 g/dL (32-36); Mean Corpuscular Volume 102.3 fL (80-100); Mean Platelet Volume 7.7 fL (7.4-10.4); Monocytes # (auto) 0.92 K/uL (0.11-0.59); Monocytes % (auto) 18.4 %; Neutrophils # (auto) 2.44 K/uL (1.4-6.5); Neutrophils % (auto) 48.9 %; Platelet Count 113 K/uL (130-400); RDW Coefficient of Variation 14.2 % (11.5-14.5); RDW Standard Deviation 52.8 fL (36.4-46.3); Red Blood Count 2.17 M/uL (4.2-5.4); White Blood Count 4.99 K/uL (4.8-10.8)
[2019-02-25] MEDS ORDERED: PANTOprazole 80 MG in DEXTROSE 5% 100 ML IV STA (18:48)
[2019-02-25 18:53] LABS: Alanine Aminotransferase 21 U/L (12-78); Albumin Level 2.5 gm/dl (3.4-5.0); Aspartate Aminotransferase 39 U/L (15-37); BUN Creatinine Ratio 48.5 (10-20); Blood Urea Nitrogen 55 mg/dl (7-18); Calcium 8.3 mg/dl (8.5-10.1); Carbon Dioxide 35 mmol/L (21-32); Chloride 100 mmol/L (98-107); Est GFR (African American) 55.6; Glucose 113 mg/dl (70-99); Potassium 4.3 mmol/L (3.5-5.1); Sodium 141 mmol/L (136-145)
[2019-02-25 18:58] LABS: Albumin Globulin Ratio 0.9 (0.9-2); Alkaline Phosphatase 67 U/L (45-117); Bilirubin,Total 0.2 mg/dl (0.2-1); Globulin 2.9 gm/dl (2.5-4.0); Total Protein 5.4 gm/dl (6.4-8.2); Troponin I < 0.015 ng/ml (0-0.045)
[2019-02-25 18:59] LABS: Partial Thromboplastin Ratio 2.5; Prothrombin Time 74.9 Seconds (9.0-12.0)
[2019-02-25 19:06] LABS: Anisocytosis Present; Polychromasia 1+
[2019-02-25 19:10] LABS: INR 8.5 (0.9-1.1); Partial Thromboplastin Time 67.2 Seconds (21.0-31.0)
[2019-02-25] MEDS: PANTOprazole 40 MG in DEXTROSE 5% 100 ML IV SCH ×2 (19:34→23:48)
[2019-02-25] MEDS ORDERED: PHYTONADIONE 10 MG in SODIUM CHLORIDE 0.9% 50 ML IV ONE (20:14)
--- NOTE | 2019-02-25 20:26 | History & Physical Report ---
Date of Service February 25, 2019 Assessment & Plan (1) Upper GI bleed: -Admit to tele -Patient presenting from referral PCP for evaluation of anemia and heme positive stools -Patient has been having black, tarry stools for the past 3 days -Anticoagulated on Coumadin for history of DVT diagnosed 06/2018, INR 8.5; was given vitamin K 10 mg IV -Hgb 7.4 -Transfuse 2 unit PRBC -In the ED, patient has remained hemodynamically stable -BUN noted to be 55 -S/P Protonix bolus and drip in ED, will continue -N.p.o. -GI consult (2) History of DVT (deep vein thrombosis): -INR 8.5; vitamin K as above -Holding Coumadin secondary to GI bleeding (3) AVM (arteriovenous malformation) brain: (4) Seizures: -AVM treated with radiation and patient developed subsequent vasogenic edema/seizures -No issues recently -Continue Depakote and Keppra (very important that patient receives at 8 AM and 8 PM promptly) (5) Non-ischemic cardiomyopathy: -Improvement in EF with normalization as per last echo -Appears euvolemic -Continue home dose of furosemide (6) Chronic respiratory failure with hypoxia: (7) COPD (chronic obstructive pulmonary disease): -No signs of acute exacerbation -Continue home inhalers and oxygen (8) DVT prophylaxis: -SCDs when INR <2.0 -Pharmacologic prophylaxis contraindicated due to GI bleeding History of Present Illness Chief Complaint: sent by PCP for anemia, heme positive stool Primary Care Provider: Tanesha Ponce DO 73-year-old female who presents to the ED by referral PCP for evaluation of anemia and heme positive stools. Over the past 2 weeks, patient has noted increasing generalized weakness and lethargy. About 3 days ago, she developed black tarry stools. She was seen by her PCP today and found to have a hemoglobin of 7.3 and heme positive stools. She was sent to the ER for further evaluation. She denies associated abdominal pain. She has had nausea and poor appetite. No vomiting. She denies lightheadedness, dizziness, diaphoresis, syncopal events. No chest pain or shortness of breath. She denies fevers and chills. No urinary symptoms. Seizures have been well controlled. She denies heavy NSAID use. In the ED, Hgb is 7.4, BUN 55, INR 8.5. Patient has remained hemodynamically stable. She was given vitamin K 10 mg IV, IVF, Protonix bolus and started on a drip. Allergies Allergy/AdvReac Type Severity Reaction Status Date / Time Sulfa (Sulfonamide Allergy Mild rash Verified 02/25/19 17:23 Antibiotics) alcohol Allergy Unknown Recovering Verified 02/25/19 17:23 Alcoholic Opioids - Morphine Analogues AdvReac Unknown HISTORY OF Verified 02/25/19 17:23 ADDICTION Home Medications Home Medications Medication Instructions Recorded Confirmed Type Incruse Ellipta 1 inh INHALATION QAM 04/11/18 02/25/19 History aspirin [Aspir-81] 81 mg PO QAM 04/11/18 02/25/19 History Breo Ellipta 1 inh INHALATION QAM 10/09/18 02/25/19 History divalproex 1,000 mg PO QAM 10/09/18 02/25/19 History divalproex 1,250 mg PO QPM 10/09/18 02/25/19 History furosemide 40 mg PO BIDM 10/09/18 02/25/19 History metoprolol succinate 25 mg PO QDD 10/09/18 02/25/19 History potassium chloride [Klor-Con M10] 10 meq PO TIDM 10/09/18 02/25/19 History warfarin [Coumadin] 5 mg PO QDD 10/09/18 02/25/19 History diazepam [Diastat] 5 mg [place] Q12H PRN #7 ea 10/11/18 02/25/19 Rx lorazepam [Ativan] 1 mg BUCCAL DAILY PRN #14 tab 10/11/18 02/25/19 Rx albuterol sulfate HFA 90 2 puffs INHALATION Q4H PRN #1 gm 01/30/19 02/25/19 History mcg/actuation aerosol inhaler fluoxetine 10 mg PO DAILY 02/25/19 02/25/19 History levetiracetam 250 mg PO DAILY 02/25/19 02/25/19 History Past Med/Surg History Medical History History of DVT (deep vein thrombosis) (Chronic) Hematoma of right thigh (Resolved) Non-ischemic cardiomyopathy (Chronic) Obesity (BMI 30.0-34.9) (Chronic) 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 with INR goal of 2.0-3.0 (Chronic) Vasogenic edema (Resolved) AVM (arteriovenous malformation) brain (Chronic) Seizures (Chronic) AA (alcohol abuse) (Resolved) COPD (chronic obstructive pulmonary disease) (Chronic) Surgical History History of appendectomy (Chronic) History of cataract surgery (Chronic) Family History Mother Stroke Heart disease Social History Preferred Language: Pashto Communication Ability: Effective Visual Impairment: No Limitations 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 Beliefs That Will Affect Care: None marital status: Current Living Situation: Spouse and Long-Term Current Living Situation Comment: [place] current occupational status: retired Feels Safe at Home: Yes Safety Concerns: Feels Safe At This Time Smoking Status: Former smoker Cigarettes Per Day: 40 ; Second Hand Exposure: No ; Hx Alcohol Use: Yes Hx Substance Use: Yes (HX OF OPIATE ABUSE) substance use type: does not use Review of Systems Review of Systems: ROS per HPI, all other systems reviewed and negative Physical Exam Constitutional: WD/WN, vitals as above Eyes: PERRL, conjunctivae normal, anicteric sclerae ENMT: external ear and nose normal, oropharynx normal Respiratory: normal respiratory effort; no respiratory distress Auscultation: + diminished lung sounds Cardiovascular: Rate/Rhythm: regular rate and regular rhythm Vessels: normal peripheral pulses Extremities: no edema Gastrointestinal (Abdomen): normal bowel sounds, soft, nontender, no hepatosplenomegaly Musculoskeletal: no cyanosis or clubbing, extremities motor strength 5/5 Skin: no rashes, warm and dry Neurologic: PERRL, EOMI, accommodation nl, no face palsy, no dysarthria Motor/Sensory: + tremor Psychiatric: A+Ox3, euthymic affect Results & Data Vital Signs (Past 12 Hours) Vital Signs Temp Pulse Pulse Resp BP BP Pulse Ox 02/25/19 20:15 37.2 C 79 15 95/64 L 100 02/25/19 20:00 36.9 C 81 15 110/65 98 02/25/19 19:59 80 21 107/56 L 95 02/25/19 19:50 37.0 C 82 18 119/69 98 02/25/19 19:47 83 13 121/75 98 02/25/19 19:45 37.3 C 84 20 109/63 98 02/25/19 19:42 83 20 109/63 93 02/25/19 19:40 85 21 02/25/19 19:37 82 27 H 115/60 02/25/19 19:30 113 H 20 02/25/19 19:20 78 25 H 100 02/25/19 19:10 80 20 100 02/25/19 19:00 79 15 95/75 L 98 02/25/19 18:51 81 18 98 02/25/19 18:49 80 80 17 125/69 125/69 98 02/25/19 18:40 85 15 97 02/25/19 18:30 83 22 02/25/19 18:20 79 17 99 02/25/19 18:10 82 18 99 02/25/19 18:05 82 84 15 100/73 97 02/25/19 18:00 95 H 17 95 02/25/19 17:54 83 21 96 02/25/19 17:52 85 18 100/73 99 02/25/19 17:07 36.4 C L 75 20 114/74 96 Laboratory Results Short CBC 02/25/19 Range/Units 18:25 WBC 4.99 (4.8-10.8) K/uL Hgb 7.4 L (12.0-16.0) g/dL Hct 22.2 L (37-47) % Plt Count 113 L (130-400) K/uL BMP 02/25/19 18:25 Sodium 141 Potassium 4.3 Chloride 100 Carbon Dioxide 35 H BUN 55 H Creatinine 1.14 Glucose 113 H Calcium 8.3 L Cardiac Enzymes 02/25/19 Range/Units 18:25 Troponin I < 0.015 (0-0.045) ng/ml Liver Function 02/25/19 Range/Units 18:25 Total Bilirubin 0.2 (0.2-1) mg/dl AST 39 H (15-37) U/L ALT 21 (12-78) U/L Alkaline Phosphatase 67 (45-117) U/L Albumin 2.5 L (3.4-5.0) gm/dl Code Status & VTE Plan Code Status Patient is a DNR as per my discussion with her. VTE Prophylaxis Plan VTE Prophylaxis will be ordered: Yes Supervising Physician Co-Signing Physician Notes Care coordinated with Sheri Cowart . Agree with above note. Patient seen and examined. Please refer to her notes for full details. Vital signs reviewed. Physical exam: General exam: Alert and oriented. Not in acute distress. CVS: S1 and S2 heard, regular rate and rhythm, no murmurs. RS: Clear to auscultation, no wheezing or crackles. ABD: Soft, bowel sounds present, nontender, no distention. 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 EXT: No edema, no erythema. Labs: Reviewed. Assessment and plan: 73 F presents with not feeling well, poor appetit and black stools for few days and found to have hb 7.3 Gi Bleed melena hemeoccult positive hb 7.3 inr 8.5 received iv vitamin k follow inr to transfuse two units of prbc follow h and h ppi drip npo, fluids gi consult. Hx of DVT holding coumadin and reversing INR for above reasons to restart when feasible as per records chronic dvt on vascular ultrasound on 07/2018. Other diagnosis and plan of care as per Sheri SPARROW.. Pritesh fuentes MD.
[2019-02-25] MEDS ORDERED: PHYTONADIONE 10 MG/ML AMP ONE (20:58)
[2019-02-25] MEDS ORDERED: ACETAMINOPHEN 325 MG TAB PO PRN (21:35)
--- NOTE | 2019-02-25 21:57 | Emergency Department Note ---
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 The notes that the patient has also had black, tarry stools over the past 3 days so she saw her doctor to have blood work done. The blood work showed the patient's INR was 7.3 and she typically runs within the normal range. The patient endorses some nausea, but denies any abdominal pain or vomiting. The patient is on Coumadin but did not take it today given her current symptoms. The patient also denies any urinary symptoms as well as any excessive NSAID use or recent steroid use. Home Medications Home Medications Medication Instructions Recorded Confirmed Type Incruse Ellipta 1 inh INHALATION QAM 04/11/18 02/25/19 History aspirin [Aspir-81] 81 mg PO QAM 04/11/18 02/25/19 History Breo Ellipta 1 inh INHALATION QAM 10/09/18 02/25/19 History divalproex 1,000 mg PO QAM 10/09/18 02/25/19 History divalproex 1,250 mg PO QPM 10/09/18 02/25/19 History furosemide 40 mg PO BIDM 10/09/18 02/25/19 History metoprolol succinate 25 mg PO QDD 10/09/18 02/25/19 History potassium chloride [Klor-Con M10] 10 meq PO TIDM 10/09/18 02/25/19 History warfarin [Coumadin] 5 mg PO QDD 10/09/18 02/25/19 History diazepam [Diastat] 5 mg UT Q12H PRN #7 ea 10/11/18 02/25/19 Rx lorazepam [Ativan] 1 mg BUCCAL DAILY PRN #14 tab 10/11/18 02/25/19 Rx albuterol sulfate HFA 90 2 puffs INHALATION Q4H PRN #1 gm 01/30/19 02/25/19 History mcg/actuation aerosol inhaler fluoxetine 10 mg PO DAILY 02/25/19 02/25/19 History levetiracetam 250 mg PO DAILY 02/25/19 02/25/19 History Allergies Allergy/AdvReac Type Severity Reaction Status Date / Time Sulfa (Sulfonamide Allergy Mild rash Verified 02/25/19 17:23 Antibiotics) alcohol Allergy Unknown Recovering Verified 02/25/19 17:23 Alcoholic Opioids - Morphine Analogues AdvReac Unknown HISTORY OF Verified 02/25/19 17:23 ADDICTION Past Med/Surg History Medical History History of DVT (deep vein thrombosis) (Chronic) Hematoma of right thigh (Resolved) Non-ischemic cardiomyopathy (Chronic) Obesity (BMI 30.0-34.9) (Chronic) 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 with INR goal of 2.0-3.0 (Chronic) Vasogenic edema (Resolved) AVM (arteriovenous malformation) brain (Chronic) Seizures (Chronic) AA (alcohol abuse) (Resolved) COPD (chronic obstructive pulmonary disease) (Chronic) Surgical History History of appendectomy (Chronic) History of cataract surgery (Chronic) Family History Mother Stroke Heart disease Social History Preferred Language: Khmer Communication Ability: Effective Visual Impairment: No Limitations Director Of Institutional Sales Required: No Beliefs That Will Affect Care: None marital status: Current Living Situation: [facility] Current Living Situation Comment: [facility] current occupational status: retired Feels Safe at Home: Yes Safety Concerns: Feels Safe At This Time Smoking Status: Former smoker Cigarettes Per Day: 40 ; Second Hand Exposure: No ; Hx Alcohol Use: Yes Hx Substance Use: Yes (HX OF OPIATE ABUSE) substance use type: does not use Review of Systems See HPI for pertinent positives & negatives. and A total of 10 systems reviewed and were otherwise negative Physical Exam Vital Signs Vital Signs - 24 hr 02/25/19 17:07 02/25/19 17:52 02/25/19 17:54 Temperature 36.4 C L Temperature Source Oral Sepsis Recent Fever Within 48 Hours No Sepsis Action Taken by Nursing No Action Required Pulse Rate 75 85 83 Pulse Rate [Left] Pulse Rate from SpO2 Sensor 82 86 Pulse Rhythm Respiratory Rate 20 18 21 Respiratory Effort / Characteristics Non-Labored Respiratory Depth Normal Blood Pressure 114/74 100/73 Blood Pressure [Right Arm] Blood Pressure Mean 87 82 Blood Pressure Mean [Right Arm] Blood Pressure Position Blood Pressure Position [Right Arm] Pulse Oximetry 96 99 96 Oxygen Delivery Method Nasal Cannula Oxygen Flow Rate 2 02/25/19 18:00 02/25/19 18:05 02/25/19 18:10 Temperature Temperature Source Sepsis Recent Fever Within 48 Hours Sepsis Action Taken by Nursing Pulse Rate 95 H 82 82 Pulse Rate [Left] 84 Pulse Rate from SpO2 Sensor 92 H 81 Pulse Rhythm Regular Respiratory Rate 17 15 18 Respiratory Effort / Characteristics Spontaneous Respiratory Depth Blood Pressure Blood Pressure [Right Arm] 100/73 Blood Pressure Mean Blood Pressure Mean [Right Arm] 82 Blood Pressure Position Blood Pressure Position [Right Arm] Lying Pulse Oximetry 95 97 99 Oxygen Delivery Method Room Air Oxygen Flow Rate 2 02/25/19 18:20 02/25/19 18:30 02/25/19 18:40 Temperature Temperature Source Sepsis Recent Fever Within 48 Hours Sepsis Action Taken by Nursing Pulse Rate 79 83 85 Pulse Rate [Left] Pulse Rate from SpO2 Sensor 79 85 Pulse Rhythm Respiratory Rate 17 22 15 Respiratory Effort / Characteristics Respiratory Depth Blood Pressure Blood Pressure [Right Arm] Blood Pressure Mean Blood Pressure Mean [Right Arm] Blood Pressure Position Blood Pressure Position [Right Arm] Pulse Oximetry 99 97 Oxygen Delivery Method Oxygen Flow Rate 02/25/19 18:49 02/25/19 18:51 02/25/19 19:00 Temperature Temperature Source Sepsis Recent Fever Within 48 Hours Sepsis Action Taken by Nursing Pulse Rate 80 81 79 Pulse Rate [Left] 80 Pulse Rate from SpO2 Sensor 81 82 79 Pulse Rhythm Respiratory Rate 17 18 15 Respiratory Effort / Characteristics Non-Labored Spontaneous Respiratory Depth Normal Blood Pressure 125/69 95/75 L Blood Pressure [Right Arm] 125/69 Blood Pressure Mean 87 81 Blood Pressure Mean [Right Arm] 87 Blood Pressure Position Blood Pressure Position [Right Arm] Lying Pulse Oximetry 98 98 98 Oxygen Delivery Method Nasal Cannula Oxygen Flow Rate 2 02/25/19 19:10 02/25/19 19:20 02/25/19 19:30 Temperature Temperature Source Sepsis Recent Fever Within 48 Hours Sepsis Action Taken by Nursing Pulse Rate 80 78 113 H Pulse Rate [Left] Pulse Rate from SpO2 Sensor 80 78 Pulse Rhythm Respiratory Rate 20 25 H 20 Respiratory Effort / Characteristics Respiratory Depth Blood Pressure Blood Pressure [Right Arm] Blood Pressure Mean Blood Pressure Mean [Right Arm] Blood Pressure Position Blood Pressure Position [Right Arm] Pulse Oximetry 100 100 Oxygen Delivery Method Oxygen Flow Rate 02/25/19 19:37 02/25/19 19:40 02/25/19 19:42 Temperature Temperature Source Sepsis Recent Fever Within 48 Hours Sepsis Action Taken by Nursing Pulse Rate 82 85 83 Pulse Rate [Left] Pulse Rate from SpO2 Sensor 85 Pulse Rhythm Respiratory Rate 27 H 21 20 Respiratory Effort / Characteristics Respiratory Depth Blood Pressure 115/60 109/63 Blood Pressure [Right Arm] Blood Pressure Mean 78 78 Blood Pressure Mean [Right Arm] Blood Pressure Position Blood Pressure Position [Right Arm] Pulse Oximetry 93 Oxygen Delivery Method Oxygen Flow Rate 02/25/19 19:45 02/25/19 19:47 02/25/19 19:50 Temperature 37.3 C 37.0 C Temperature Source Oral Oral Sepsis Recent Fever Within 48 Hours Sepsis Action Taken by Nursing Pulse Rate 84 83 82 Pulse Rate [Left] Pulse Rate from SpO2 Sensor 83 81 Pulse Rhythm Respiratory Rate 20 13 18 Respiratory Effort / Characteristics Respiratory Depth Blood Pressure 109/63 121/75 119/69 Blood Pressure [Right Arm] Blood Pressure Mean 78 90 85 Blood Pressure Mean [Right Arm] Blood Pressure Position Blood Pressure Position [Right Arm] Pulse Oximetry 98 98 98 Oxygen Delivery Method Oxygen Flow Rate 2 02/25/19 19:56 02/25/19 19:59 02/25/19 20:00 Temperature 36.9 C Temperature Source Oral Sepsis Recent Fever Within 48 Hours Sepsis Action Taken by Nursing Pulse Rate 80 81 Pulse Rate [Left] 80 Pulse Rate from SpO2 Sensor 82 81 Pulse Rhythm Respiratory Rate 18 21 23 Respiratory Effort / Characteristics Non-Labored Spontaneous Respiratory Depth Blood Pressure 107/56 L 110/65 Blood Pressure [Right Arm] 107/56 L Blood Pressure Mean 73 80 Blood Pressure Mean [Right Arm] 73 Blood Pressure Position Lying Blood Pressure Position [Right Arm] Lying Pulse Oximetry 100 95 98 Oxygen Delivery Method Nasal Cannula Oxygen Flow Rate 2 2 02/25/19 20:01 02/25/19 20:05 02/25/19 20:10 Temperature Temperature Source Sepsis Recent Fever Within 48 Hours Sepsis Action Taken by Nursing Pulse Rate 96 H 78 Pulse Rate [Left] Pulse Rate from SpO2 Sensor 83 81 78 Pulse Rhythm Respiratory Rate 25 H 15 20 Respiratory Effort / Characteristics Respiratory Depth Blood Pressure 110/65 99/76 L Blood Pressure [Right Arm] Blood Pressure Mean 80 83 Blood Pressure Mean [Right Arm] Blood Pressure Position Blood Pressure Position [Right Arm] Pulse Oximetry 99 98 100 Oxygen Delivery Method Oxygen Flow Rate 02/25/19 20:11 02/25/19 20:14 02/25/19 20:15 Temperature 37.2 C Temperature Source Oral Sepsis Recent Fever Within 48 Hours Sepsis Action Taken by Nursing Pulse Rate 81 82 79 Pulse Rate [Left] Pulse Rate from SpO2 Sensor 79 91 H Pulse Rhythm Respiratory Rate 16 17 15 Respiratory Effort / Characteristics Respiratory Depth Blood Pressure 90/60 L 95/64 L 95/64 L Blood Pressure [Right Arm] Blood Pressure Mean 70 74 74 Blood Pressure Mean [Right Arm] Blood Pressure Position Blood Pressure Position [Right Arm] Pulse Oximetry 94 90 100 Oxygen Delivery Method Oxygen Flow Rate 2 02/25/19 20:16 02/25/19 20:20 02/25/19 20:24 Temperature Temperature Source Sepsis Recent Fever Within 48 Hours Sepsis Action Taken by Nursing Pulse Rate 81 84 82 Pulse Rate [Left] Pulse Rate from SpO2 Sensor 80 84 82 Pulse Rhythm Respiratory Rate 26 H 14 16 Respiratory Effort / Characteristics Respiratory Depth Blood Pressure 80/65 L 103/69 Blood Pressure [Right Arm] Blood Pressure Mean 70 80 Blood Pressure Mean [Right Arm] Blood Pressure Position Blood Pressure Position [Right Arm] Pulse Oximetry 98 97 100 Oxygen Delivery Method Oxygen Flow Rate 02/25/19 20:30 Temperature Temperature Source Sepsis Recent Fever Within 48 Hours Sepsis Action Taken by Nursing Pulse Rate Pulse Rate [Left] 80 Pulse Rate from SpO2 Sensor Pulse Rhythm Respiratory Rate 16 Respiratory Effort / Characteristics Respiratory Depth Blood Pressure Blood Pressure [Right Arm] 103/69 Blood Pressure Mean Blood Pressure Mean [Right Arm] 80 Blood Pressure Position Blood Pressure Position [Right Arm] Pulse Oximetry 98 Oxygen Delivery Method Nasal Cannula Oxygen Flow Rate 2 GENERAL: Sitting up in bed, alert, chronically ill appearing, disheveled. EYE EXAM: normal conjunctiva. OROPHARYNX: no exudate, no erythema, lips, buccal mucosa, and tongue normal and mucous membranes are moist NECK: supple, no nuchal rigidity, no adenopathy, non-tender LUNGS: Clear to auscultation. Normal chest wall mechanics HEART: no murmurs, S1 normal and S2 normal ABDOMEN: abdomen soft, non-tender, normo-active bowel, sounds, no masses, no rebound or guarding. BACK: Back is symmetrical on inspection and there is no deformity, no midline tenderness, no CVA tenderness. RECTAL: Dark tarry stool, heme positive. SKIN: no rashes and no bruising UPPER EXTREMITIES: upper extremities are grossly normal. LOWER EXTREMITIES: No pitting edema. NEURO EXAM: Normal sensorium, cranial nerves II-XII grossly intact, normal speech, no gross weakness of arms, no gross weakness of legs. Course ED COURSE: Vital signs were reviewed and showed hypotension and tachycardia. The patients medical record was reviewed The above diagnostic studies were performed and reviewed. ED treatments and interventions as stated above. 1754: The patient was evaluated in room A02. A complete history and physical examination was performed. 8: The patient's rhythm strip from 17:52 showed sinus rhythm while the rhythm strip from 18:33 showed Afib. 1920: I spoke to Dr. Tamia Kuo about the patient's case. He is going to accept the patient for further evaluation. 1924: Upon reevaluation, the patient is resting in bed. I discussed my findings with the patient and she understands and agrees with the treatment plan. She consented for the blood transfusion and we discussed the risk for an INR reversal. Based on the patients age, coexisting illnesses, exam and lab findings the decision to treat as an inpatient was made. The patient remained stable while under my care. The patient will be evaluated for further management. Consultations Consultation #1: I spoke to Dr. Tamia Kuo about the patient's case. He is going to accept the patient for further evaluation. Time: 19:20 Administered Medications Pantoprazole Sodium 40 mg/ (Dextrose) 100 mls @ 20 mls/hr IV Q5H MILY Stop: 03/27/19 18:59 Last Admin: 02/25/19 19:34 Dose: 20 mls/hr Documented by: [id number] Discontinued Medications Sodium Chloride (Nss 1000ml) 1,000 mls @ 100 mls/hr IV .Q10H MILY Stop: 02/26/19 04:14 Last Admin: 02/25/19 18:40 Dose: 100 mls/hr Documented by: [id number] Pantoprazole Sodium 80 mg/ (Dextrose) 120 mls @ 480 mls/hr IV NOW STA Stop: 02/25/19 19:02 Last Infusion: 02/25/19 19:35 Dose: 0 mls/hr Documented by: [id number] Admin: 02/25/19 19:12 Dose: 480 mls/hr Documented by: [id number] Phytonadione 10 mg/ Sodium (Chloride) 51 mls @ 102 mls/hr IV ONE ONE Stop: 02/25/19 20:43 Last Admin: 02/25/19 21:05 Dose: 102 mls/hr Documented by: [id number] Phytonadione (Aqua-Mephyton) Confirm Administered Dose 10 mg .ROUTE .STK-MED ONE Stop: 02/25/19 20:59 Last Admin: 02/25/19 21:06 Dose: Not Given Documented by: [id number] Medical Decision Making Differential Diagnosis Differential: Diverticulitis, AVM, Coagulopathy, Colitis, Malignancy, Upper GI bleed, Fissure, Hemorrhoids, amongst other pathologies entertained. Medical Records Attestation: I reviewed the patient's medical records. Home Medications Current Medication List: was personally reviewed by me Laboratory Data Attestation: I reviewed the patient's lab results. Result diagrams: 02/25/19 18:25 02/25/19 18:25 Lab Results 02/25/19 02/25/19 02/25/19 Range/Units 18:05 18:25 18:25 WBC 4.99 (4.8-10.8) K/uL RBC 2.17 L (4.2-5.4) M/uL Hgb 7.4 L (12.0-16.0) g/dL Hct 22.2 L (37-47) % MCV 102.3 H (80-100) fL MCH 34.1 H (25-34) pg MCHC 33.3 (32-36) g/dL RDW Std Deviation 52.8 H (36.4-46.3) fL RDW Coeff of Delmer 14.2 (11.5-14.5) % Plt Count 113 L (130-400) K/uL MPV 7.7 (7.4-10.4) fL Immature Gran % (Auto) 1.0 % Neut % (Auto) 48.9 % Lymph % (Auto) 31.3 % Sully % (Auto) 18.4 % Eos % (Auto) 0.2 % Baso % (Auto) 0.2 % Immature Gran # (Auto) 0.05 H (0.00-0.02) K/uL Neut # (Auto) 2.44 (1.4-6.5) K/uL Lymph # (Auto) 1.56 (1.2-3.4) K/uL Sully # (Auto) 0.92 H (0.11-0.59) K/uL Eos # (Auto) 0.01 (0-0.5) K/uL Baso # (Auto) 0.01 (0-0.2) K/uL Polychromasia 1+ Anisocytosis Present PT 74.9 H (9.0-12.0) Seconds INR 8.5 H* (0.9-1.1) APTT 67.2 H* (21.0-31.0) Seconds PTT Ratio 2.5 Sodium (136-145) mmol/L Potassium (3.5-5.1) mmol/L Chloride (98-107) mmol/L Carbon Dioxide (21-32) mmol/L Anion Gap (3-11) BUN (7-18) mg/dl Creatinine (0.6-1.2) mg/dl Est Cr Clr Drug Dosing Est GFR ( Amer) Est GFR (Non-Af Amer) BUN/Creatinine Ratio (10-20) Glucose (70-99) mg/dl Calcium (8.5-10.1) mg/dl Total Bilirubin (0.2-1) mg/dl AST (15-37) U/L ALT (12-78) U/L Alkaline Phosphatase (45-117) U/L Troponin I (0-0.045) ng/ml Total Protein (6.4-8.2) gm/dl Albumin (3.4-5.0) gm/dl Globulin (2.5-4.0) gm/dl Albumin/Globulin Ratio (0.9-2) POC Stool Occult Blood Positive A (Negative) Valproic Acid (50-100) mcg/ml Blood Type Antibody Screen Crossmatch 09/02/25/19 02/25/19 Range/Units 18:25 18:25 18:25 WBC (4.8-10.8) K/uL RBC (4.2-5.4) M/uL Hgb (12.0-16.0) g/dL Hct (37-47) % MCV (80-100) fL MCH (25-34) pg MCHC (32-36) g/dL RDW Std Deviation (36.4-46.3) fL RDW Coeff of Delmer (11.5-14.5) % Plt Count (130-400) K/uL MPV (7.4-10.4) fL Immature Gran % (Auto) % Neut % (Auto) % Lymph % (Auto) % Sully % (Auto) % Eos % (Auto) % Baso % (Auto) % Immature Gran # (Auto) (0.00-0.02) K/uL Neut # (Auto) (1.4-6.5) K/uL Lymph # (Auto) (1.2-3.4) K/uL Sully # (Auto) (0.11-0.59) K/uL Eos # (Auto) (0-0.5) K/uL Baso # (Auto) (0-0.2) K/uL Polychromasia Anisocytosis PT (9.0-12.0) Seconds INR (0.9-1.1) APTT (21.0-31.0) Seconds PTT Ratio Sodium 141 (136-145) mmol/L Potassium 4.3 (3.5-5.1) mmol/L Chloride 100 (98-107) mmol/L Carbon Dioxide 35 H (21-32) mmol/L Anion Gap 6.0 (3-11) BUN 55 H (7-18) mg/dl Creatinine 1.14 (0.6-1.2) mg/dl Est Cr Clr Drug Dosing Not Reportable Est GFR ( Amer) 55.6 Est GFR (Non-Af Amer) 48.0 BUN/Creatinine Ratio 48.5 H (10-20) Glucose 113 H (70-99) mg/dl Calcium 8.3 L (8.5-10.1) mg/dl Total Bilirubin 0.2 (0.2-1) mg/dl AST 39 H (15-37) U/L ALT 21 (12-78) U/L Alkaline Phosphatase 67 (45-117) U/L Troponin I < 0.015 (0-0.045) ng/ml Total Protein 5.4 L (6.4-8.2) gm/dl Albumin 2.5 L (3.4-5.0) gm/dl Globulin 2.9 (2.5-4.0) gm/dl Albumin/Globulin Ratio 0.9 (0.9-2) POC Stool Occult Blood (Negative) Valproic Acid 95 (50-100) mcg/ml Blood Type O Positive Antibody Screen NEGATIVE Crossmatch See Detail ECG Data Attestation: I personally reviewed and interpreted this ECG as follows: Indication: other (GI bleed) Rate (beats per minute): 83 Rhythm: sinus rhythm Findings: + other (Normal axis); no PVC and no ST elevation Blood Pressure Blood Pressure Findings: Low blood pressure Blood Pressure Disposition: further management by hospitalist BERE Narrative Patient is a 73-year-old female presents the ER for dark tarry stools which is been present for the past 4 days. She does admit to taking Coumadin for previous PE which occurred over 6 months ago. IV was established blood work was obtained and showed an anemia at 7.4 down from 11. Platelets were slightly low at 113. BMP with an elevated BUN consistent with an upper GI bleed. No significant transaminitis. Bilirubin unremarkable. Troponin negative. Stool was dark and tarry and heme positive. INR was elevated at 8.5. Valproic was 95. Patient was typed, screened and cross match. She was given 2 units of PRBCs while in the ER. She was given 10 units IV vitamin K. She was updated bedside. I did obtain consent for blood. She was discussed with the hospitalist and admitted for symptomatic anemia with a GI bleed and elevated INR. Impression & Plan GI bleed, Elevated INR, Symptomatic anemia, Atrial fibrillation Critical Care Time Critical Care Time: Yes Total Critical Care Time: 40 I have personally spent greater than 40 minutes of critical care time in the direct management of this patient. This includes bedside care, interpretation of diagnostic studies, and testing, discussion with consultants, patient, and family members, and other required patient management activities. This 40 minutes is in excess of all separately billable procedures. Discharge Plan Visit Data *Final* Discharge Date/Time: 02/25/19 21:15 Chief Complaint: GI Assessment Stated Complaint: WEAKNESS, GI BLEED ED Provider: Sawyer Min Discharge Problem: GI bleed, Elevated INR, Symptomatic anemia, Atrial fibrillation Patient Disposition: Admitted As Inpatient Discharge Instructions Interventions: ED Discharge Assessment Last Done: 02/25/19 21:15 Discharge Problem: GI bleed Qualifiers: GI bleed type/associated pathology: unspecified gastrointestinal hemorrhage type Qualified Code(s): K92.2 - Gastrointestinal hemorrhage, unspecified Atrial fibrillation Qualifiers: Atrial fibrillation type: unspecified Qualified Code(s): I48.91 - Unspecified atrial fibrillation The scribe's documentation has been prepared under my direction and personally reviewed by me in its entirety. I confirm that the note above accurately reflects all work, treatment, procedures, and medical decision making performed by me.
[2019-02-25] MEDS ORDERED: DIVALPROEX EXTENDED RELEASE 250 MG TABCR PO SCH (22:30)
[2019-02-25] MEDS: DIVALPROEX EXTENDED RELEASE 500 MG TAB PO SCH (23:45)
[2019-02-26 04:07] LABS: INR 1.7 (0.9-1.1); Prothrombin Time 16.8 Seconds (9.0-12.0)
[2019-02-26 04:16] LABS: BUN Creatinine Ratio 46.3 (10-20); Blood Urea Nitrogen 50 mg/dl (7-18); Carbon Dioxide 36 mmol/L (21-32); Chloride 100 mmol/L (98-107); Est GFR (African American) 58.7; Est GFR (Non-African American) 50.7; Glucose 91 mg/dl (70-99); Potassium 3.5 mmol/L (3.5-5.1); Sodium 141 mmol/L (136-145)
[2019-02-26 04:30] LABS: Hematocrit (blood only) 26.9 % (37-47); Mean Corpuscular Hemoglobin 31.7 pg (25-34); Mean Corpuscular Hgb Conc 33.5 g/dL (32-36); Mean Corpuscular Volume 94.7 fL (80-100); Mean Platelet Volume 8.2 fL (7.4-10.4); Platelet Count 99 K/uL (130-400); Platelet Estimate Decreased (Normal); RDW Coefficient of Variation 16.8 % (11.5-14.5); RDW Standard Deviation 57.2 fL (36.4-46.3); Red Blood Count 2.84 M/uL (4.2-5.4); White Blood Count 4.91 K/uL (4.8-10.8)
[2019-02-26] MEDS: PANTOprazole 40 MG in DEXTROSE 5% 100 ML IV SCH ×3 (04:40→18:44)
--- NOTE | 2019-02-26 05:56 | Gastrointestinal Consultation ---
Date of Consultation February 26, 2019 Assessment & Plan (1) Upper GI bleed: Ms. Godinez is a 73 yr old female with COPD, seizures, ischemic cardiomyopathy, on warfarin for a DVT in 06/2018 who experienced melena, in the setting of a supratherapeutic INR. Her Hb drop to 7.4, BUN elevation to 40 and melena are very suggestive of an upper GI bleed such as from ulcer disease. 1. Appreciate primary hospitalists - fluid resusitation, -reversing/ holding anticoagulant (most recently taken on 02/24) - transfusion - pantoprazole drip 2. Will plan for EGD today. 3. Please keep NPO except meds. 4. Further recommendations to follow EGD. Present on Admission?: Yes Supervising Physician Co-Signing Physician Notes Nidia seen and examined the patient with ANDREWS Oro whose note reflects our findings and plan. Melena and supratherapeutic INR. Hemodynamically stable. Abd exam benign. EGD today to evaluate for source of GI bleed. History of Present Illness Reason for Consultation: GI Bleed Requesting Physician: Vaughn Fry DO Attending Physician: Vaughn Fry DO History of Present Illness Ms. Kathy Godinez is a 73 yr old female pt of Dr. 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 INR was found to be elevated and she was directed to [facility]. On arrival in the ED, INR was supratherpeudic at 8.5, reversed with Vit K 10mg x 2 and INR is 1.7 today. Hb was 11.2 on arrival (down from 11.2 in october 2018). She received 2 units of RBCs and Hb this morning is 9.0. BUN is 50. She has remained hemodynamically stable. She has not passed a BM since prior to arrival and has not had any nausea/vomiting. She describes progressive weakness over the past month that initially was thought secondary to her seizure disorder, though her most recent seizure was in October 2018. She made the appt for the weakness about 2 weeks ago and has been very weak, fatigued during those past few weeks. She specifies that she has had about 2 black tarry BMs/day but they are "not loose." She has never previously undergone upper endoscopy and does not have any prior hx of GI bleeding. Other than 81mg ASA daily, she denies any NSAID use. Though some records describe abdominal pain, she states, "I really haven't had any pain." Allergies Allergy/AdvReac Type Severity Reaction Status Date / Time Sulfa (Sulfonamide Allergy Mild rash Verified 02/25/19 17:23 Antibiotics) alcohol Allergy Unknown Recovering Verified 02/25/19 17:23 Alcoholic Opioids - Morphine Analogues AdvReac Unknown HISTORY OF Verified 02/25/19 17:23 ADDICTION Home Medications Home Medications Medication Instructions Recorded Confirmed Type Incruse Ellipta 1 inh INHALATION QAM 04/11/18 02/25/19 History aspirin [Aspir-81] 81 mg PO QAM 04/11/18 02/25/19 History Breo Ellipta 1 inh INHALATION QAM 10/09/18 02/25/19 History divalproex 1,000 mg PO QAM 10/09/18 02/25/19 History divalproex 1,250 mg PO QPM 10/09/18 02/25/19 History furosemide 40 mg PO BIDM 10/09/18 02/25/19 History metoprolol succinate 25 mg PO QDD 10/09/18 02/25/19 History potassium chloride [Klor-Con M10] 10 meq PO TIDM 10/09/18 02/25/19 History warfarin [Coumadin] 5 mg PO QDD 10/09/18 02/25/19 History diazepam [Diastat] 5 mg NV Q12H PRN #7 ea 10/11/18 02/25/19 Rx lorazepam [Ativan] 1 mg BUCCAL DAILY PRN #14 tab 10/11/18 02/25/19 Rx albuterol sulfate HFA 90 2 puffs INHALATION Q4H PRN #1 gm 01/30/19 02/25/19 History mcg/actuation aerosol inhaler fluoxetine 10 mg PO DAILY 02/25/19 02/25/19 History levetiracetam 250 mg PO DAILY 02/25/19 02/25/19 History Patient History Medical History History of DVT (deep vein thrombosis) (Chronic) Hematoma of right thigh (Resolved) Non-ischemic cardiomyopathy (Chronic) Obesity (BMI 30.0-34.9) (Chronic) 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 with INR goal of 2.0-3.0 (Chronic) Vasogenic edema (Resolved) AVM (arteriovenous malformation) brain (Chronic) Seizures (Chronic) AA (alcohol abuse) (Resolved) COPD (chronic obstructive pulmonary disease) (Chronic) Surgical History History of appendectomy (Chronic) History of cataract surgery (Chronic) Family History Mother Stroke Heart disease Social History Preferred Language: Malay Communication Ability: Effective Visual Impairment: No Limitations Aws Developer Required: No Beliefs That Will Affect Care: None marital status: Current Living Situation: Spouse and Mcc Current Living Situation Comment: [facility] current occupational status: retired Feels Safe at Home: Yes Safety Concerns: Feels Safe At This Time Smoking Status: Former smoker Cigarettes Per Day: 40 ; Second Hand Exposure: No ; Hx Alcohol Use: Yes Hx Substance Use: Yes (HX OF OPIATE ABUSE) substance use type: does not use Review of Systems Review of Systems: ROS: Gen: + tremor from Depakote, ++ weakness, denies any fevers or weight loss Eyes: No eye redness, or pain, no recent vision changes Resp: Denies SOB, no cough Cardio: No palpitations/irregular beats, no chest pain GI: Denies abdominal pain, no nausea/vomiting : Denies pain on urination Skin: No jaundice, itching or new rashes Physical Exam Constitutional: well developed, well nourished, + ill appearing (chronically) and + obese (mildly); no acute distress Eyes: PERRL, conjunctivae normal, anicteric sclerae ENMT: external ear and nose normal, oropharynx normal Neck: trachea midline, no thyromegaly Respiratory: normal respiratory effort, lungs clear to auscultation No visible respiratory effor t with O2 at 2L/min. Cardiovascular: RRR, no murmur, no edema Gastrointestinal (Abdomen): normal bowel sounds, soft, nontender, no hepat osplenomegaly Skin: + excessive bruising on arms, chest though no large areas of bruising or hematoma seen on exam Neurologic: PERRL, EOMI, accommodation nl, no face palsy, no dysarthria Psychiatric: A+Ox3, euthymic affect Lymphatic: no cervical or axillary lymphadenopathy Results & Data Vital Signs (Past 12 Hours) Vital Signs Temp Pulse Pulse Resp BP BP Pulse Ox 02/26/19 02:30 37.0 C 60 16 95/63 L 98 02/26/19 02:00 36.5 C 80 16 89/65 L 94 02/26/19 01:30 36.5 C 78 16 90/60 L 94 02/26/19 01:00 36.5 C 67 14 90/60 L 97 02/26/19 00:45 36.5 C 68 16 93/65 L 95 02/26/19 00:30 36.7 C 86 16 105/70 98 02/26/19 00:15 36.7 C 70 16 102/68 96 02/26/19 00:10 36.7 C 68 18 86/56 L 98 02/26/19 00:00 36.5 C 69 86/56 L 95 02/25/19 23:43 36.5 C 72 16 96/63 L 98 02/25/19 22:15 36.4 C L 75 18 94/67 L 91 02/25/19 21:45 36.7 C 91 H 16 123/67 94 02/25/19 21:15 77 16 96/58 L 100 02/25/19 21:10 80 16 96/58 L 99 02/25/19 20:45 37.1 C 82 20 98/51 L 96 02/25/19 20:30 80 16 103/69 98 02/25/19 20:24 82 16 103/69 100 02/25/19 20:20 84 14 97 02/25/19 20:16 81 26 H 80/65 L 98 02/25/19 20:15 37.2 C 79 15 95/64 L 100 02/25/19 20:14 82 17 95/64 L 90 02/25/19 20:11 81 16 90/60 L 94 02/25/19 20:10 78 20 100 02/25/19 20:05 96 H 15 99/76 L 98 02/25/19 20:01 25 H 110/65 99 02/25/19 20:00 36.9 C 81 23 110/65 98 02/25/19 19:59 80 21 107/56 L 95 02/25/19 19:56 80 18 107/56 L 100 02/25/19 19:50 37.0 C 82 18 119/69 98 02/25/19 19:47 83 13 121/75 98 02/25/19 19:45 37.3 C 84 20 109/63 98 02/25/19 19:42 83 20 109/63 93 02/25/19 19:40 85 21 02/25/19 19:37 82 27 H 115/60 02/25/19 19:30 113 H 20 02/25/19 19:20 78 25 H 100 02/25/19 19:10 80 20 100 02/25/19 19:00 79 15 95/75 L 98 02/25/19 18:51 81 18 98 02/25/19 18:49 80 80 17 125/69 125/69 98 02/25/19 18:40 85 15 97 02/25/19 18:30 83 22 02/25/19 18:20 79 17 99 02/25/19 18:10 82 18 99 02/25/19 18:05 82 84 15 100/73 97 02/25/19 18:00 95 H 17 95 02/25/19 17:54 83 21 96 02/25/19 17:52 85 18 100/73 99 Laboratory Results WBC 4.9, Hb 9, Hct 26, platelets 99, INR 1.7,BUN 50, Cr 1.09.Occult stool (+)
[2019-02-26] MEDS: DIVALPROEX EXTENDED RELEASE 500 MG TAB PO SCH ×2 (07:45→19:55)
[2019-02-26] MEDS: POTASSIUM CHLORIDE 10 MEQ TABCR PO SCH ×3 (07:46→16:49)
[2019-02-26] MEDS: FLUOXETINE HCL 10 MG CAP PO SCH (07:47)
[2019-02-26] MEDS ORDERED: FUROSEMIDE 40 MG TAB PO SCH (08:00)
--- NOTE | 2019-02-26 08:30 | Anesthesiology Consultation ---
Date of Service February 26, 2019 Assessment & Plan (1) Encounter for pre-operative examination: Chart Review Chart Review: Acceptable Risk for Surgery and Patient NOT seen in Pre Admission Testing Consults Requested none ASA ASA4 Proposed Anesthesia Anesthesia Type: MAC Risk / Benefits Reviewed With: PT / POA / Parent / Guardian, Accepts Plan and I nformed Consent Obtained History Surgery Operation Date: 02/26/19 10:00 Proposed Procedures p Esophagogastroduodenoscopy Dr Chandler - Amy Chandler Height/Weight Height: 5 ft 2 in Weight: 77.5 kg Allergies Allergy/AdvReac Type Severity Reaction Status Date / Time Sulfa (Sulfonamide Allergy Mild rash Verified 02/25/19 17:23 Antibiotics) alcohol Allergy Unknown Recovering Verified 02/25/19 17:23 Alcoholic Opioids - Morphine Analogues AdvReac Unknown HISTORY OF Verified 02/25/19 17:23 ADDICTION Medications Home Medications Medication Instructions Recorded Confirmed Last Taken Incruse Ellipta 1 inh INHALATION QAM 04/11/18 02/25/19 10/09/18 aspirin [Aspir-81] 81 mg PO QAM 04/11/18 02/25/19 10/09/18 Breo Ellipta 1 inh INHALATION QAM 10/09/18 02/25/19 10/09/18 divalproex 1,000 mg PO QAM 10/09/18 02/25/19 10/09/18 divalproex 1,250 mg PO QPM 10/09/18 02/25/19 10/09/18 20:30 1250 GIVEN IN ER furosemide 40 mg PO BIDM 10/09/18 02/25/19 10/09/18 metoprolol succinate 25 mg PO QDD 10/09/18 02/25/19 10/09/18 potassium chloride [Klor-Con M10] 10 meq PO TIDM 10/09/18 02/25/19 10/09/18 warfarin [Coumadin] 5 mg PO QDD 10/09/18 02/25/19 10/09/18 diazepam [Diastat] 5 mg CO Q12H PRN #7 ea 10/11/18 02/25/19 Unknown lorazepam [Ativan] 1 mg BUCCAL DAILY PRN #14 tab 10/11/18 02/25/19 Unknown albuterol sulfate HFA 90 2 puffs INHALATION Q4H PRN #1 gm 01/30/19 02/25/19 Unknown mcg/actuation aerosol inhaler fluoxetine 10 mg PO DAILY 02/25/19 02/25/19 Unknown levetiracetam 250 mg PO DAILY 02/25/19 02/25/19 Unknown Active Medications Generic Name Dose Route Start Last Admin Trade Name Imani PRN Reason Stop Dose Admin Divalproex Sodium 1,000 mg 02/25/19 22:30 02/26/19 07:45 Depakote Extended Release PO 03/27/19 22:29 1,000 mg BID MILY Administration Divalproex Sodium 250 mg 02/25/19 22:30 02/25/19 23:46 Depakote Extended Release PO 03/27/19 22:29 Not Given QPM MILY Fluoxetine HCl 10 mg 02/26/19 09:00 02/26/19 07:47 Prozac PO 03/28/19 08:59 10 mg DAILY MILY Administration Fluticasone/Vilanterol 1 puffs 02/26/19 09:00 02/26/19 08:52 Breo Ellipta INH 03/28/19 08:59 1 puffs DAILY MILY Administration Furosemide 40 mg 02/26/19 08:00 02/26/19 07:46 Lasix PO 03/28/19 07:59 40 mg BIDM MILY Administration Pantoprazole Sodium 40 mg/ 100 mls @ 20 mls/hr 02/25/19 19:00 02/26/19 11:41 Dextrose IV 03/27/19 18:59 0 mls/hr Q5H MILY Infusion Levetiracetam 250 mg 02/26/19 09:00 02/26/19 07:47 Keppra PO 03/28/19 08:59 250 mg DAILY MILY Administration Potassium Chloride 10 meq 02/26/19 08:00 02/26/19 11:40 Klor-Con M10 PO 03/28/19 07:59 Not Given TIDM MILY Umeclidinium [place] 1 ea 02/26/19 09:00 02/26/19 08:52 Incruse Ellipta INH 03/28/19 08:59 1 ea DAILY MILY Administration NPO Date Last Intake of Fluids: 02/26/19 Time Last Intake of Fluids: 08:00 Last Intake of Fluids Comment: sip of water with pills Date Last Intake of Solids: 02/25/19 Time Last Intake of Solids: 12:00 Past Medical History Medical History History of DVT (deep vein thrombosis) (Chronic) Hematoma of right thigh (Resolved) Non-ischemic cardiomyopathy (Chronic) Obesity (BMI 30.0-34.9) (Chronic) detention current use of anticoagulants with INR goal of 2.0-3.0 (Chronic) Vasogenic edema (Resolved) AVM (arteriovenous malformation) brain (Chronic) Seizures (Chronic) AA (alcohol abuse) (Resolved) COPD (chronic obstructive pulmonary disease) (Chronic) Exercise / Class Metabolic Activity IV < 2 Limit ADL/Bedbound (walker to bathroom) Past Family History Family History Mother Stroke Heart disease Past Surgical History Surgical History History of appendectomy (Chronic) History of cataract surgery (Chronic) Past Anesthesia History No Hx of Anesthesia Complications History of PONV No Hx of PONV and No Hx of Motion Sickness Social History Smoking Status: Former smoker Smoking cigarettes per day: 40 Hx Alcohol Use: Yes Alcohol Intake Frequency Comment: HX of ALCOHOL ABUSE Hx Substance Use: Yes (HX OF OPIATE ABUSE) substance use type: does not use Review of Systems Patient denies active symptoms of GERD. Physical Exam Vital Signs Last Vital Signs Temp 37 C 02/26/19 12:32 Pulse 86 02/26/19 12:32 Resp 18 02/26/19 12:32 BP 112/52 L 02/26/19 12:32 Pulse Ox 96 02/26/19 12:32 Constitutional + obese ENMT Mouth: + edentulous; no TMJ abnormality and oral opening not small Thyromental Distance: < 3.5 Finger Breadths Mallampati Class: II Neck normal visual inspection, + short neck and + thick neck; neck extension not limited Respiratory normal respiratory effort Auscultation: + diminished lung sounds and + crackles (at b/l bases) Cardiovascular Rate/Rhythm: regular rate and regular rhythm Heart Sounds: no murmur Neurologic moves all extremities Psychiatric Orientation: alert and oriented x 3 Testing Laboratory Results 02/26/19 03:42 02/26/19 03:42 PT 16.8 Seconds (9.0-12.0) H 02/26/19 03:42 INR 1.7 (0.9-1.1) H 02/26/19 03:42 APTT 67.2 Seconds (21.0-31.0) H* 02/25/19 18:25 Blood Type O Positive 02/25/19 18:25 Antibody Screen NEGATIVE 02/25/19 18:25 Electrocardiogram Date: 02/25/19 Findings: + NSR @ (83) Low voltage QRS Borderline ECG When compared with ECG of 09-OCT-2018 20:26, Premature ventricular complexes are no longer Present Minimal criteria for Anterior infarct are no longer Present Criteria for Inferior infarct are no longer Present
[2019-02-26] MEDS: FLUTICASONE/VILANTEROL INHALER INH SCH (08:52)
[2019-02-26] MEDS: UMECLIDINIUM BROMIDE INH SCH (08:52)
[2019-02-26] MEDS ORDERED: levETIRAcetam 250 MG TAB PO SCH (09:00)
[2019-02-26] MEDS ORDERED: GLYCOPYRROLATE 0.2 MG/ML VIAL ONE (13:03)
[2019-02-26] MEDS ORDERED: LIDOCAINE HCL 2% 2 ML VIAL/AMP(20MG/ML) INFIL ONE (13:03)
[2019-02-26] MEDS ORDERED: PROPOFOL IV EMULSION 10 MG/ML 20 ML VIAL IV ONE (13:03)
[2019-02-26] MEDS ORDERED: ONDANSETRON INJ 2 MG/ML 2 ML VIAL ONE (13:03)
--- NOTE | 2019-02-26 13:42 | Hospitalist Progress Note ---
Date of Service February 26, 2019 Assessment & Plan (1) Upper GI bleed: -Patient was sent to ER for evaluation of anemia and heme positive stools -Complains of having black, tarry stools for the past 3 days -Anticoagulated on Coumadin for history of DVT diagnosed 06/2018, Presented with supratherapeutic INR 8.5,/anemia hemoglobin 7.4 She was given vitamin K to reverse her coagulopathy Status post 2 unit of PRBC transfusion, hemoglobin improved to 9 No further episode of GI bleed since admission -GI consult appreciated Status post EGD today: Shows normal esophagus, mild inflammation characterized by congestion (edema) and erythema was found in the entire examined stomach. The examined duodenum was normal IV Protonix discontinued Transitioned to p.o. Protonix, Ordered for clear liquid diet Patient is scheduled for colonoscopy tomorrow Ordered for n.p.o. past midnight, ordered for colonoscopy prep (2) History of DVT (deep vein thrombosis): -Was on Coumadin, presented with elevated INR 8.5 With anemia, Given IV vitamin K to reverse coagulopathy INR 1.7 today Status post EGD active evidence of upper GI bleed noted, scheduled for colonoscopy tomorrow Continue to hold Coumadin (3) AVM (arteriovenous malformation) brain: (4) Seizures: -AVM treated with radiation and patient developed subsequent vasogenic edema/seizures -No issues recently -Continue Depakote and Keppra (very important that patient receives at 8 AM and 8 PM promptly) (5) Non-ischemic cardiomyopathy: -Improvement in EF with normalization as per last echo -Appears euvolemic -Lasix kept on hold, as patient is ordered colonoscopy prep High risk for volume depletion, IVONNE Resume Lasix tomorrow if volume status remains stable (6) Chronic respiratory failure with hypoxia: On chronic home oxygen, no acute issues No complaint of shortness of breath dyspnea on exertion cough or orthopnea (7) COPD (chronic obstructive pulmonary disease): -No signs of acute exacerbation -Continue home inhalers and oxygen (8) DVT prophylaxis: Coumadin on hold, secondary to anemia, coagulopathy Ordered for SCD and teds Anticoagulation with Coumadin can be resumed after colonoscopy tomorrow if no evidence of active GI bleed noted Code status: Full code Disposition: Expected to be discharged home from medical Subjective No episode of GI bleed, no dark stool no nausea vomiting Did not had any bowel movement since admission Denies of any dizzy spell or lightheadedness Vitals been stable Status post EGD today showed no evidence of upper GI bleed Scheduled for colonoscopy tomorrow Review of Systems Review of Systems: All systems reviewed & are unremarkable except as noted in HPI & below Physical Exam Physical Exam: GENERAL: No sign of distress, HEENT: Sclera nonicteric, pink-purple bilateral equal reactive to light extraocular muscle intact Normal oral mucosa, neck: No JVD, no thyromegaly, trachea midline Lungs: Clear to auscultate, no wheeze or rales Cardiovascular: Regular S1 and S2, no murmur or gallop, no JVD, no lower extremity edema Abdomen: Soft, nontender, bowel sounds active, no hepatosplenomegaly Extremities: No rash or deformity, normal joint, Neuro: No focal neurological deficit, no dysarthria, no facial droop Psych: Alert awake oriented x3: Euthymic Skin: No rash LYMPH NODES: No cervical lymphadenopathy Results & Data Vital Signs (Past 12 Hours) Vital Signs Temp Pulse Pulse Pulse Pulse Resp BP 02/26/19 13:32 70 16 02/26/19 12:32 37 C 86 18 02/26/19 11:39 36.8 C 78 16 02/26/19 07:43 36.8 C 72 16 02/26/19 02:30 37.0 C 60 16 95/63 L 02/26/19 02:00 36.5 C 80 16 89/65 L BP Pulse Ox 02/26/19 13:32 81/56 L 100 02/26/19 12:32 112/52 L 96 02/26/19 11:39 113/71 96 02/26/19 07:43 108/71 95 02/26/19 02:30 98 02/26/19 02:00 94
--- NOTE | 2019-02-26 13:55 | Anesthesiology Progress Note ---
Date of Service February 26, 2019 Anesthesia Post Procedure Vital Signs Vital Signs: Temp Pulse Pulse Pulse Pulse Resp BP 02/26/19 13:45 75 16 02/26/19 13:32 70 16 02/26/19 12:32 37 C 86 18 02/26/19 11:39 36.8 C 78 16 02/26/19 07:43 36.8 C 72 16 02/26/19 02:30 37.0 C 60 16 95/63 L 02/26/19 02:00 36.5 C 80 16 89/65 L 02/26/19 01:30 36.5 C 78 16 90/60 L 02/26/19 01:00 36.5 C 67 14 90/60 L 02/26/19 00:45 36.5 C 68 16 93/65 L 02/26/19 00:30 36.7 C 86 16 105/70 02/26/19 00:15 36.7 C 70 16 102/68 02/26/19 00:10 36.7 C 68 18 86/56 L 02/26/19 00:00 36.5 C 69 86/56 L 02/25/19 23:43 36.5 C 72 16 96/63 L 02/25/19 22:15 36.4 C L 75 18 94/67 L 02/25/19 21:45 36.7 C 91 H 16 123/67 02/25/19 21:15 77 16 96/58 L 02/25/19 21:10 80 16 02/25/19 20:45 37.1 C 82 20 98/51 L 02/25/19 20:30 80 16 02/25/19 20:24 82 16 103/69 02/25/19 20:20 84 14 02/25/19 20:16 81 26 H 80/65 L 02/25/19 20:15 37.2 C 79 15 95/64 L 02/25/19 20:14 82 17 95/64 L 02/25/19 20:11 81 16 90/60 L 02/25/19 20:10 78 20 02/25/19 20:05 96 H 15 99/76 L 02/25/19 20:01 25 H 110/65 02/25/19 20:00 36.9 C 81 23 110/65 02/25/19 19:59 80 21 02/25/19 19:56 80 18 107/56 L 02/25/19 19:50 37.0 C 82 18 119/69 02/25/19 19:47 83 13 121/75 02/25/19 19:45 37.3 C 84 20 109/63 02/25/19 19:42 83 20 109/63 02/25/19 19:40 85 21 02/25/19 19:37 82 27 H 115/60 02/25/19 19:30 113 H 20 02/25/19 19:20 78 25 H 02/25/19 19:10 80 20 02/25/19 19:00 79 15 95/75 L 02/25/19 18:51 81 18 02/25/19 18:49 80 80 17 125/69 02/25/19 18:40 85 15 02/25/19 18:30 83 22 02/25/19 18:20 79 17 02/25/19 18:10 82 18 02/25/19 18:05 82 84 15 02/25/19 18:00 95 H 17 02/25/19 17:54 83 21 02/25/19 17:52 85 18 100/73 02/25/19 17:07 36.4 C L 75 20 114/74 BP BP Pulse Ox 02/26/19 13:45 109/66 100 02/26/19 13:32 81/56 L 100 02/26/19 12:32 112/52 L 96 02/26/19 11:39 113/71 96 02/26/19 07:43 108/71 95 02/26/19 02:30 98 02/26/19 02:00 94 02/26/19 01:30 94 02/26/19 01:00 97 02/26/19 00:45 95 02/26/19 00:30 98 02/26/19 00:15 96 02/26/19 00:10 98 02/26/19 00:00 95 02/25/19 23:43 98 02/25/19 22:15 91 02/25/19 21:45 94 02/25/19 21:15 100 02/25/19 21:10 96/58 L 99 02/25/19 20:45 96 02/25/19 20:30 103/69 98 02/25/19 20:24 100 02/25/19 20:20 97 02/25/19 20:16 98 02/25/19 20:15 100 02/25/19 20:14 90 02/25/19 20:11 94 02/25/19 20:10 100 02/25/19 20:05 98 02/25/19 20:01 99 02/25/19 20:00 98 02/25/19 19:59 107/56 L 95 02/25/19 19:56 100 02/25/19 19:50 98 02/25/19 19:47 98 02/25/19 19:45 98 02/25/19 19:42 93 02/25/19 19:40 02/25/19 19:37 02/25/19 19:30 02/25/19 19:20 100 02/25/19 19:10 100 02/25/19 19:00 98 02/25/19 18:51 98 02/25/19 18:49 125/69 98 02/25/19 18:40 97 02/25/19 18:30 02/25/19 18:20 99 02/25/19 18:10 99 02/25/19 18:05 100/73 97 02/25/19 18:00 95 02/25/19 17:54 96 02/25/19 17:52 99 02/25/19 17:07 96 Transfer of Care Handoff Completed per policy Notes Mental Status: alert / awake / arousable and participated in evaluation Nausea / Vomiting: adequately controlled Pain: adequately controlled Airway Patency, RR, SpO2: stable & adequate BP & HR: stable & adequate Hydration State: stable & adequate Anesthetic Complications: no major complications apparent and Pt Satisfied with anesthetic care
--- NOTE | 2019-02-26 14:11 | GI REPORT ---
Patient Name: Kathy Godinez Procedure Date: 02/26/2019 12:48 PM Date of : 1945 Admit Type: Inpatient Age: 73 Gender: Female Attending MD: Amy Chandler DO Procedure: Upper GI endoscopy Providers: Amy Chandler DO Referring MD: Tanesha Ponce Indications: Melena Medicines: Propofol per Anesthesia Complications: No immediate complications. Estimated blood loss: None. Estimated Blood Loss: Estimated blood loss: none. Procedure: Pre-Anesthesia Assessment: - Prior to the procedure, a History and Physical was performed, and patient medications, allergies and sensitivities were reviewed. The patient's tolerance of previous anesthesia was reviewed. - The risks and benefits of the procedure and the sedation options and risks were discussed with the patient. All questions were answered and informed consent was obtained. - Patient identification and proposed procedure were verified prior to the procedure by the physician and the nurse. The procedure was verified in the pre-procedure area in the procedure room. - Mental Status Examination: alert and oriented. Airway Examination: normal oropharyngeal airway and neck mobility. Respiratory Examination: clear to auscultation. CV Examination: normal. Abdominal Examination: bowel sounds present, abdomen soft and non-tender, no masses or organomegaly noted. - ASA Grade Assessment: IV - A patient with severe systemic disease that is a constant threat to life. After obtaining informed consent, the endoscope was passed under direct vision. Throughout the procedure, the patient's blood pressure, pulse, and oxygen saturations were monitored continuously. The Endoscope was introduced through the mouth, and advanced to the second part of duodenum. The upper GI endoscopy was accomplished without difficulty. The patient tolerated the procedure well. Findings: The esophagus was normal. Mild inflammation characterized by congestion (edema) and erythema was found in the entire examined stomach. The examined duodenum was normal. Impression: - Normal esophagus. - Very mild gastritis. No fresh or altered blood. No discreet ulcers. - Normal examined duodenum. - No specimens collected. Recommendation: - Return patient to [facility]. - Can consider colonoscopy if patient has not had one in the last 5 years. Frank Morrow DO 02/26/2019 2:11:27 PM This report has been signed electronically. Note Initiated On: 02/26/2019 12:48 PM Number of Addenda: 0 I attest to the content of the Intraoperative Record and orders documented therein, exceptions below {[id number]}
[2019-02-26] MEDS ORDERED: METOPROLOL SUCC 25MG EXT REL TAB PO SCH (16:30)
[2019-02-26] MEDS ORDERED: ALBUTEROL HFA 8 GM INHALER INH PRN (17:33)
[2019-02-26] MEDS ORDERED: LORazepam 1 MG TAB PO PRN (17:33)
[2019-02-26] MEDS ORDERED: diazePAM RECTAL 2.5 MG GEL PR PRN (17:33)
[2019-02-26] MEDS: POLYETHYLENE (MIRALAX) 17 GM PACK PO SCH (18:19)
[2019-02-26] MEDS: PANTOprazole 40 MG TAB PO SCH (19:53)
[2019-02-26] MEDS ORDERED: DIVALPROEX EXTENDED RELEASE 250 MG TABCR PO SCH (20:00)
[2019-02-27] MEDS: POLYETHYLENE (MIRALAX) 17 GM PACK PO SCH (05:28)
[2019-02-27] MEDS: DIVALPROEX EXTENDED RELEASE 500 MG TAB PO SCH (07:43)
[2019-02-27] MEDS: FLUOXETINE HCL 10 MG CAP PO SCH (07:44)
[2019-02-27] MEDS: PANTOprazole 40 MG TAB PO SCH (07:44)
[2019-02-27] MEDS: POTASSIUM CHLORIDE 10 MEQ TABCR PO SCH ×2 (07:45→14:22)
[2019-02-27] MEDS: FLUTICASONE/VILANTEROL INHALER INH SCH (07:46)
[2019-02-27] MEDS: UMECLIDINIUM BROMIDE INH SCH (07:47)
[2019-02-27] MEDS ORDERED: levETIRAcetam 250 MG TAB PO SCH ×3 (08:00→09:00)
--- NOTE | 2019-02-27 08:55 | Anesthesiology Progress Note ---
Date of Service February 27, 2019 Anesthesia Post Procedure Vital Signs Vital Signs: Temp Pulse Pulse Pulse Resp BP Pulse Ox 02/27/19 07:30 36.5 C 61 20 110/72 95 02/27/19 04:30 36.6 C 64 18 96/53 L 97 02/26/19 23:30 36.4 C L 67 21 113/69 96 02/26/19 20:06 36.4 C L 65 20 118/78 93 02/26/19 17:25 36.4 C L 75 17 93/59 L 99 02/26/19 14:58 36.8 C 74 18 98/53 L 99 02/26/19 14:26 36.9 C 79 16 114/77 97 02/26/19 14:01 73 16 109/65 100 02/26/19 13:45 75 16 109/66 100 02/26/19 13:32 70 16 81/56 L 100 02/26/19 12:32 37 C 86 18 112/52 L 96 02/26/19 11:39 36.8 C 78 16 113/71 96 Notes Mental Status: alert / awake / arousable and participated in evaluation Patient Amnestic to Procedure: Yes Nausea / Vomiting: adequately controlled Pain: adequately controlled Airway Patency, RR, SpO2: stable & adequate BP & HR: stable & adequate Hydration State: stable & adequate Anesthetic Complications: no major complications apparent and Pt Satisfied with anesthetic care
[2019-02-27 09:20] LABS: Hematocrit (blood only) 28.7 % (37-47); Hemoglobin 9.7 g/dL (12.0-16.0)
[2019-02-27 09:34] LABS: BUN Creatinine Ratio 30.6 (10-20); Calcium 8.5 mg/dl (8.5-10.1); Creatinine Clr Calc Pharmacy 41.8 ml/min; Est GFR (African American) 54.5; Potassium 3.8 mmol/L (3.5-5.1)
--- NOTE | 2019-02-27 09:43 | Gastroenterology Progress Note ---
Date of Service February 27, 2019 Assessment & Plan (1) Symptomatic anemia: 73 year old female s/p EGD for anemia without significant findings prepped for colonoscopy today. She does note she saw some dark stools at the beginning of her bowel prep NPO Colonoscopy today Present on Admission?: Yes Supervising Physician Co-Signing Physician Notes Late entry: Patient was seen and examined on 02/27 with ANDREWS Pretty. Her note reflects our findings and plan. Colonoscopy did not show a source of GI blood loss. Advance diet. OK to resume anticoagulation with close monitoring of parameters. Subjective pt was seen and evaluated, chart reviewed family at bedside is npo for colonoscopy tolerated prep notes clear, liquid stool no abd pain no fever chills cp sob Review of Systems Constitutional: no chills and no fatigue Respiratory: no cough and no dyspnea Cardiovascular: no chest pain and no palpitations Gastrointestinal: no abdominal pain, no coffee ground emesis, no hematemesis, no blood in stools and no melena Physical Exam Constitutional: well nourished; no acute distress Respiratory: normal respiratory effort Cardiovascular: Rate/Rhythm: regular rate and regular rhythm Gastrointestinal (Abdomen): Percussion/Palpation: abdomen soft; abdomen nontender, no guarding and abdomen not rigid Skin: no rashes, warm and dry Results & Data Vital Signs (Past 12 Hours) Vital Signs Temp Pulse Pulse Resp BP Pulse Ox 02/27/19 07:30 36.5 C 61 20 110/72 95 02/27/19 04:30 36.6 C 64 18 96/53 L 97 02/26/19 23:30 36.4 C L 67 21 113/69 96
--- NOTE | 2019-02-27 12:32 | Anesthesiology Consultation ---
Date of Service February 27, 2019 Assessment & Plan Chart Review Chart Review: Acceptable Risk for Surgery Consults Requested none History Surgery Operation Date: 02/26/19 10:00 Proposed Procedures p Esophagogastroduodenoscopy Dr Geraldine Chandler Operation Date: 02/27/19 09:00 Proposed Procedures p Colonoscopy Dr Geraldine Chandler Height/Weight Height: 5 ft 2 in Weight: 75.7 kg Allergies Allergy/AdvReac Type Severity Reaction Status Date / Time Sulfa (Sulfonamide Allergy Mild rash Verified 02/25/19 17:23 Antibiotics) alcohol Allergy Unknown Recovering Verified 02/25/19 17:23 Alcoholic Opioids - Morphine Analogues AdvReac Unknown HISTORY OF Verified 02/25/19 17:23 ADDICTION Medications Home Medications Medication Instructions Recorded Confirmed Last Taken Incruse Ellipta 1 inh INHALATION QAM 04/11/18 02/25/19 10/09/18 aspirin [Aspir-81] 81 mg PO QAM 04/11/18 02/25/19 10/09/18 Breo Ellipta 1 inh INHALATION QAM 10/09/18 02/25/19 10/09/18 divalproex 1,000 mg PO QAM 10/09/18 02/25/19 10/09/18 divalproex 1,250 mg PO QPM 10/09/18 02/25/19 10/09/18 20:30 1250 GIVEN IN ER furosemide 40 mg PO BIDM 10/09/18 02/25/19 10/09/18 metoprolol succinate 25 mg PO QDD 10/09/18 02/25/19 10/09/18 potassium chloride [Klor-Con M10] 10 meq PO TIDM 10/09/18 02/25/19 10/09/18 warfarin [Coumadin] 5 mg PO QDD 10/09/18 02/25/19 10/09/18 diazepam [Diastat] 5 mg NC Q12H PRN #7 ea 10/11/18 02/25/19 Unknown lorazepam [Ativan] 1 mg BUCCAL DAILY PRN #14 tab 10/11/18 02/25/19 Unknown albuterol sulfate HFA 90 2 puffs INHALATION Q4H PRN #1 gm 01/30/19 02/25/19 Unknown mcg/actuation aerosol inhaler fluoxetine 10 mg PO DAILY 02/25/19 02/25/19 Unknown levetiracetam 250 mg PO DAILY 02/25/19 02/25/19 Unknown Active Medications Generic Name Dose Route Start Last Admin Trade Name Imani JOEL Reason Stop Dose Admin Divalproex Sodium 1,000 mg 02/26/19 20:00 02/27/19 07:43 Depakote Extended Release PO 03/28/19 19:59 1,000 mg BID@08,1999 MILY Administration Divalproex Sodium 250 mg 02/26/19 20:00 02/26/19 19:56 Depakote Extended Release PO 03/28/19 19:59 250 mg QPM@2000 MILY Administration Fluoxetine HCl 10 mg 02/26/19 09:00 02/27/19 07:44 Prozac PO 03/28/19 08:59 10 mg DAILY MILY Administration Fluticasone/Vilanterol 1 puffs 02/26/19 09:00 02/27/19 07:46 Breo Ellipta INH 03/28/19 08:59 1 puffs DAILY MILY Administration Furosemide 40 mg 02/26/19 08:00 02/26/19 07:46 Lasix PO 03/28/19 07:59 40 mg BIDM MILY Administration Levetiracetam 250 mg 02/27/19 09:00 02/27/19 07:44 Keppra PO 03/29/19 08:59 250 mg BID MILY Administration Metoprolol Succinate 25 mg 02/26/19 16:30 02/26/19 16:50 Toprol Xl PO 03/28/19 16:29 25 mg QDD MILY Administration Pantoprazole Sodium 40 mg 02/26/19 21:00 02/27/19 07:44 Protonix PO 03/28/19 20:59 40 mg BID MILY Administration Potassium Chloride 10 meq 02/26/19 08:00 02/27/19 07:45 Klor-Con M10 PO 03/28/19 07:59 10 meq TIDM MILY Administration Umeclidinium [place] 1 ea 02/26/19 09:00 02/27/19 07:47 Incruse Ellipta INH 03/28/19 08:59 1 ea DAILY MILY Administration NPO Date Last Intake of Fluids: 02/27/19 Time Last Intake of Fluids: 08:00 Last Intake of Fluids Comment: sip of water with pills Date Last Intake of Solids: 02/25/19 Time Last Intake of Solids: 12:00 Past Medical History Medical History History of DVT (deep vein thrombosis) (Chronic) Hematoma of right thigh (Resolved) Non-ischemic cardiomyopathy (Chronic) Obesity (BMI 30.0-34.9) (Chronic) assisted current use of anticoagulants with INR goal of 2.0-3.0 (Chronic) Vasogenic edema (Resolved) AVM (arteriovenous malformation) brain (Chronic) Seizures (Chronic) AA (alcohol abuse) (Resolved) COPD (chronic obstructive pulmonary disease) (Chronic) Past Family History Family History Mother Stroke Heart disease Past Surgical History Surgical History History of appendectomy (Chronic) History of cataract surgery (Chronic) Social History Smoking Status: Former smoker Smoking cigarettes per day: 40 Hx Alcohol Use: Yes Alcohol Intake Frequency Comment: HX of ALCOHOL ABUSE Hx Substance Use: Yes (HX OF OPIATE ABUSE) substance use type: does not use Physical Exam Vital Signs Last Vital Signs Temp 36.5 C 02/27/19 07:30 Pulse 61 02/27/19 07:30 Resp 20 02/27/19 07:30 BP 110/72 02/27/19 07:30 Pulse Ox 95 02/27/19 07:30 Testing Laboratory Results 02/27/19 09:07 02/27/19 09:07 PT 16.8 Seconds (9.0-12.0) H 02/26/19 03:42 INR 1.7 (0.9-1.1) H 02/26/19 03:42 APTT 67.2 Seconds (21.0-31.0) H* 02/25/19 18:25 Blood Type O Positive 02/25/19 18:25 Antibody Screen NEGATIVE 02/25/19 18:25
[2019-02-27] MEDS ORDERED: PROPOFOL IV EMULSION 10 MG/ML 20 ML VIAL IV ONE (12:59)
[2019-02-27] MEDS ORDERED: ePHEDrine sulfate 50 MG/ML SYR ONE (12:59)
[2019-02-27] MEDS ORDERED: LIDOCAINE HCL 2% 2 ML VIAL/AMP(20MG/ML) INFIL ONE (12:59)
--- NOTE | 2019-02-27 12:59 | GI REPORT ---
Patient Name: Kathy Godinez Procedure Date: 02/27/2019 12:41 PM Date of : 1945 Admit Type: Inpatient Age: 73 Gender: Female Attending MD: Amy Chandler DO Procedure: Colonoscopy Providers: Amy Chandler DO Referring MD: Tanesha Ponce Indications: Screening for colorectal malignant neoplasm; melena in the setting of INR>8 Medicines: Propofol per Anesthesia Complications: No immediate complications. Estimated blood loss: None. Estimated Blood Loss: Estimated blood loss: none. Procedure: Pre-Anesthesia Assessment: - Prior to the procedure, a History and Physical was performed, and patient medications, allergies and sensitivities were reviewed. The patient's tolerance of previous anesthesia was reviewed. - The risks and benefits of the procedure and the sedation options and risks were discussed with the patient. All questions were answered and informed consent was obtained. - Patient identification and proposed procedure were verified prior to the procedure by the physician and the nurse. The procedure was verified in the pre-procedure area in the procedure room. - Mental Status Examination: alert and oriented. Airway Examination: normal oropharyngeal airway and neck mobility. Respiratory Examination: clear to auscultation. CV Examination: normal. Abdominal Examination: bowel sounds present, abdomen soft and non-tender, no masses or organomegaly noted. - ASA Grade Assessment: III - A patient with severe systemic disease. After I obtained informed consent, the scope was passed under direct vision. Throughout the procedure, the patient's blood pressure, pulse, and oxygen saturations were monitored continuously. The Colonoscope was introduced through the anus and advanced to the terminal ileum. The colonoscopy was performed without difficulty. The patient tolerated the procedure well. The quality of the bowel preparation was good. Findings: The perianal and digital rectal examinations were normal. Pertinent negatives include normal sphincter tone and no palpable rectal lesions. The terminal ileum appeared normal. Multiple small and large-mouthed diverticula were found in the sigmoid colon. Non-bleeding internal hemorrhoids were found during retroflexion. The hemorrhoids were medium-sized and Grade I (internal hemorrhoids that do not prolapse). Impression: - The examined portion of the ileum was normal. - Diverticulosis in the sigmoid colon. - Non-bleeding internal hemorrhoids. - No specimens collected. Recommendation: - Return patient to [facility]. - Advance diet as tolerated. Amy Chandler D.O. Amy Chandler, 02/27/2019 12:58:34 PM This report has been signed electronically. Note Initiated On: 02/27/2019 12:41 PM Number of Addenda: 0 I attest to the content of the Intraoperative Record and orders documented therein, exceptions below {[id number]}
--- NOTE | 2019-02-27 13:45 | Anesthesiology Progress Note ---
Date of Service February 27, 2019 Anesthesia Post Procedure Vital Signs Vital Signs: Temp Pulse Pulse Pulse Resp BP Pulse Ox 02/27/19 13:24 69 16 120/51 L 96 02/27/19 13:09 70 16 131/50 L 96 02/27/19 12:53 36.8 C 77 16 120/51 L 92 02/27/19 12:42 36.8 C 73 18 99/67 L 97 02/27/19 12:30 36.6 C 69 18 128/62 97 02/27/19 07:30 36.5 C 61 20 110/72 95 02/27/19 04:30 36.6 C 64 18 96/53 L 97 02/26/19 23:30 36.4 C L 67 21 113/69 96 02/26/19 20:06 36.4 C L 65 20 118/78 93 02/26/19 17:25 36.4 C L 75 17 93/59 L 99 02/26/19 14:58 36.8 C 74 18 98/53 L 99 02/26/19 14:26 36.9 C 79 16 114/77 97 02/26/19 14:01 73 16 109/65 100 02/26/19 13:45 75 16 109/66 100 Transfer of Care Handoff Completed per policy Notes Mental Status: alert / awake / arousable and participated in evaluation Patient Amnestic to Procedure: Yes Nausea / Vomiting: adequately controlled Pain: adequately controlled Airway Patency, RR, SpO2: stable & adequate BP & HR: stable & adequate Hydration State: stable & adequate Anesthetic Complications: no major complications apparent
--- NOTE | 2019-02-27 14:35 | Hospitalist Progress Note ---
Date of Service February 27, 2019 Assessment & Plan (1) Upper GI bleed: Symptomatic Anemia In setting of supratherapeutic INR, use of aspirin, coumadin EGD:Normal esophagus.Very mild gastritis. No fresh or altered blood. No discreet ulcers. Normal examined duodenum. No specimens collected. Colonoscopy: The examined portion of the ileum was normal. Diverticulosis in the sigmoid colon. Non-bleeding internal hemorrhoids. No specimens collected. INR was reveresed Continue PPI S/P 2 units PRBCs Appreciate GI Input Can resume aspirin, coumadin as per GI No active bleeding issues Hb stable (2) History of DVT (deep vein thrombosis): Was on Coumadin, presented with elevated INR 8.5 INR was reversed with Vit K Plan to resume coumadin at lower dose Needs follow-up with Coumadin clinic upon discharge (3) AVM (arteriovenous malformation) brain: (4) Seizures: AVM treated with radiation and patient developed subsequent vasogenic edema/seizures Continue Depakote and Keppra (5) Non-ischemic cardiomyopathy: Improvement in EF with normalization as per last echo Appears euvolemic Resume lasix (6) Chronic respiratory failure with hypoxia: On chronic home oxygen, no acute issues Denies SOB (7) COPD (chronic obstructive pulmonary disease): No signs of acute exacerbation Continue home inhalers and oxygen (8) DVT prophylaxis: SCDs Code status: Full code Disposition: Plan to discharge home today Subjective Patient is seen and examined at bedside And minimal black-colored stool this morning Had colonoscopy today Discussed with gastroenterology today No active bleeding Denies any chest pain, shortness of breath, dizziness, nausea, abdominal pain Family at bedside Plan to be discharged home today Review of Systems Review of Systems: All systems reviewed & are unremarkable except as noted in HPI & below Physical Exam Physical Exam: Physical Exam: Vitals signs as noted above General Appearance:Moderately built and nourished, no apparent distress Head: normocephalic, Atraumatic Eyes: normal inspection, EOMI Neck: supple, Trachea midline Respiratory/Chest: Decreased breath sounds, CTA Cardiovascular: S1, S2, No murmur Abdomen/GI:Soft, Non tender, Bowel sounds present Extremities/Musculoskelatal:normal inspection, 1+ B/ LE edema Neurologic/Psych:AAOX3, grossly no focal neurological deficits Skin: normal color, warm Results & Data Vital Signs (Past 12 Hours) Vital Signs Temp Pulse Pulse Resp BP Pulse Ox 02/27/19 13:24 69 16 120/51 L 96 02/27/19 13:09 70 16 131/50 L 96 02/27/19 12:53 36.8 C 77 16 120/51 L 92 02/27/19 12:42 36.8 C 73 18 99/67 L 97 02/27/19 12:30 36.6 C 69 18 128/62 97 02/27/19 07:30 36.5 C 61 20 110/72 95 02/27/19 04:30 36.6 C 64 18 96/53 L 97 Laboratory Results Short CBC 02/27/19 Range/Units 09:07 Hgb 9.7 L (12.0-16.0) g/dL Hct 28.7 L (37-47) % BMP 02/27/19 09:07 Sodium 140 Potassium 3.8 Chloride 100 Carbon Dioxide 37 H BUN 36 H Creatinine 1.16 Glucose 78 Calcium 8.5
--- NOTE | 2019-02-27 14:48 | Discharge Summary ---
Date of Service February 27, 2019 Admission HPI Per Admitting Provider 73-year-old female who presents to the ED by referral PCP for evaluation of anemia and heme positive stools. Over the past 2 weeks, patient has noted increasing generalized weakness and lethargy. About 3 days ago, she developed black tarry stools. She was seen by her PCP today and found to have a hemoglobin of 7.3 and heme positive stools. She was sent to the ER for further evaluation. She denies associated abdominal pain. She has had nausea and poor appetite. No vomiting. She denies lightheadedness, dizziness, diaphoresis, syncopal events. No chest pain or shortness of breath. She denies fevers and chills. No urinary symptoms. Seizures have been well controlled. She denies heavy NSAID use. In the ED, Hgb is 7.4, BUN 55, INR 8.5. Patient has remained hemodynamically stable. She was given vitamin K 10 mg IV, IVF, Protonix bolus and started on a drip. Admission Exam Per Admitting Provider Physical Exam Constitutional: WD/WN, vitals as above Eyes: PERRL, conjunctivae normal, anicteric sclerae ENMT: external ear and nose normal, oropharynx normal Respiratory: normal respiratory effort; no respiratory distress Auscultation: + diminished lung sounds Cardiovascular: Rate/Rhythm: regular rate and regular rhythm Vessels: normal peripheral pulses Extremities: no edema Gastrointestinal (Abdomen): normal bowel sounds, soft, nontender, no hepatosplenomegaly Musculoskeletal: no cyanosis or clubbing, extremities motor strength 5/5 Skin: no rashes, warm and dry Neurologic: PERRL, EOMI, accommodation nl, no face palsy, no dysarthria Motor/Sensory: + tremor Psychiatric: A+Ox3, euthymic affect Principal Diagnosis GI bleed Symptomatic anemia Supratherapeutic INR Discharge Data Allergies Allergy/AdvReac Type Severity Reaction Status Date / Time Sulfa (Sulfonamide Allergy Mild rash Verified 02/25/19 17:23 Antibiotics) alcohol Allergy Unknown Recovering Verified 02/25/19 17:23 Alcoholic Opioids - Morphine Analogues AdvReac Unknown HISTORY OF Verified 02/25/19 17:23 ADDICTION Consultations 02/25/19 19:25 ED Decision to Admit Stat 02/25/19 21:35 Consult Gastroenterology Routine Procedures Performed Operation Date: 02/26/19 10:00 Actual Procedures p Esophagogastroduodenoscopy - Amy Chandler Operation Date: 02/27/19 09:00 Actual Procedures p Colonoscopy - Amy Chandler Colonoscopy: Findings: The perianal and digital rectal examinations were normal. Pertinent negatives include normal sphincter tone and no palpable rectal lesions. The terminal ileum appeared normal. Multiple small and large-mouthed diverticula were found in the sigmoid colon. Non-bleeding internal hemorrhoids were found during retroflexion. The hemorrhoids were medium-sized and Grade I (internal hemorrhoids that do not prolapse). Impression: - The examined portion of the ileum was normal. - Diverticulosis in the sigmoid colon. - Non-bleeding internal hemorrhoids. - No specimens collected. Recommendation: - Return patient to [facility]. - Advance diet as tolerated. EGD: Findings: The esophagus was normal. Mild inflammation characterized by congestion (edema) and erythema was found in the entire examined stomach. The examined duodenum was normal. Impression: - Normal esophagus. - Very mild gastritis. No fresh or altered blood. No discreet ulcers. - Normal examined duodenum. - No specimens collected. Recommendation: - Return patient to [facility] for [facility] care. - Can consider colonoscopy if patient has not had one in the last 5 years. Hospital Course (1) Upper GI bleed: Symptomatic Anemia In setting of supratherapeutic INR, use of aspirin, coumadin EGD:Normal esophagus.Very mild gastritis. No fresh or altered blood. No discreet ulcers. Normal examined duodenum. No specimens collected. Colonoscopy: The examined portion of the ileum was normal. Diverticulosis in the sigmoid colon. Non-bleeding internal hemorrhoids. No specimens collected. INR was reveresed Continue PPI S/P 2 units PRBCs Appreciate GI Input Can resume aspirin, coumadin as per GI No active bleeding issues Hb stable (2) History of DVT (deep vein thrombosis): Was on Coumadin, presented with elevated INR 8.5 INR was reversed with Vit K Plan to resume coumadin at lower dose Needs follow-up with Coumadin clinic upon discharge (3) AVM (arteriovenous malformation) brain: (4) Seizures: AVM treated with radiation and patient developed subsequent vasogenic edema/seizures Continue Depakote and Keppra (5) Non-ischemic cardiomyopathy: Improvement in EF with normalization as per last echo Appears euvolemic Resume lasix (6) Chronic respiratory failure with hypoxia: On chronic home oxygen, no acute issues Denies SOB (7) COPD (chronic obstructive pulmonary disease): No signs of acute exacerbation Continue home inhalers and oxygen (8) DVT prophylaxis: SCDs Code status: Full code Disposition: Plan to discharge home today Total Time Total Time Spent Total Time Spent (In Minutes): 38 minutes Total Time Includes: Examination of the Patient, Discharge Planning, Medication Reconciliation, Communication With Other Providers and Other Discharge Plan Discharge Items Patient Disposition: Home - Self-Care Reason For Visit: GI BLEED Discharge Diagnosis: GI bleed Symptomatic anemia Supratherapeutic INR Activity: Resume your previous activity Exercise/Sports: Gradually increase as tolerated Non-emergency contact: Primary Care Provider, Specialist and Boiler Cleaner Call non-emergency contact if: you have any medication questions, your symptoms worsen, your pain is not controlled, your pain is worsening, your pain is unusual for you, your pain is concerning for you and you have a fever Follow-up/Referrals: Tanesha Ponce DO [Primary Care Provider] - Diet: Heart Healthy Addtl Attending Provider Instructions: Follow-up with your primary care physician on March 06, 2019 at 10:45 AM Follow-up with your front office supervisor as needed Follow-up with Coumadin clinic for management of your Coumadin dosing and monitoring of PT/INR as advised Seek immediate medical attention if your symptoms reoccur or worsen Pending Studies at Discharge: No Stand-Alone Forms: [facility] Medications and DC Order Prescriptions: New pantoprazole 40 mg Tablet,Delayed Release (Dr/Ec) 40 mg PO DAILY 30 Days Qty: 30 RF: 0 Continued albuterol sulfate 90 mcg/actuation HFA aerosol inhaler 2 puffs inhalation Q4H PRN (Reason: Shortness Of Breath) Qty: 1 RF: 0 aspirin [Aspir-81] 81 mg Tablet,Delayed Release (Dr/Ec) 81 mg PO QAM RF: 0 Incruse Ellipta 62.5 mcg/actuation Blister With Device 1 inh INHALATION QAM RF: 0 divalproex 500 mg Tablet Extended Release 24 Hr 1,250 mg PO QPM RF: 0 Breo Ellipta 200-25 mcg/dose Blister With Device 1 inh INHALATION QAM RF: 0 furosemide 40 mg tablet 40 mg PO BIDM RF: 0 divalproex 500 mg tablet extended release 24 hr 1,000 mg PO QAM RF: 0 warfarin [Coumadin] 5 mg tablet 5 mg PO QDD RF: 0 metoprolol succinate 25 mg tablet extended release 24 hr 25 mg PO QDD RF: 0 potassium chloride [Klor-Con M10] 10 mEq tablet,ER particles/crystals 10 meq PO TIDM RF: 0 lorazepam [Ativan] 1 mg tablet 1 mg BUCCAL DAILY PRN (Reason: as needed for seizure) Qty: 14 RF: 0 diazepam [Diastat] 2.5 mg kit 5 mg OR Q12H PRN (Reason: seizure ) Qty: 7 RF: 0 levetiracetam 250 mg tablet 250 mg PO DAILY RF: 0 fluoxetine 10 mg capsule 10 mg PO DAILY RF: 0 Discharge Orders: Discharge Order (Routine); Ordered 02/27/19 Ordered By: Anam Peck Admission Data Admit Date/Time: 02/25/19 20:33 Attending Provider: Anam Peck Admit Provider: Pritesh Cantrell Primary Care Provider: Tanesha Ponce Other Providers: Pritesh Cantrell ; Amy Chandler Other Interventions: Discharge Summary Assessment (RN) Last Done: 02/27/19 15:44 DC Date/Time DO NOT enter until pt leaves facility: 02/27/19 16:25
== END 2019-02-27 16:25 | disposition home or self-care (01) | DRG 377 ==
LOC: ED 17:03 → 2S 20:33 → SUATTDRO 20:33 → 2S 21:15 → 2N 02-26 14:35

== ENCOUNTER 2019-03-18 18:07 | Inpatient (IN) ==
[2019-03-18] MEDS ORDERED: SODIUM CHLORIDE 0.9% 1000ML 1,000 ML IV ONE (18:32)
[2019-03-18] MEDS ORDERED: LORazepam 1 MG/2 ML VIAL IV STA (18:44)
[2019-03-18] MEDS ORDERED: levETIRAcetam 1,500 MG in DEXTROSE 5% 100 ML IV STA (18:46)
[2019-03-18 18:50] LABS: Appearance Urine Clear (Clear); Bilirubin Urine Negative (Negative); Blood Urine Negative (Negative); Color Urine Yellow; Glucose Urine UA Negative (Negative); Ketones Urine Negative (Negative); Leukocyte Esterase Urine Negative (Negative); Nitrite Urine Negative (Negative); Protein Urine Negative (Negative); Urobilinogen Urine Negative (Negative)
[2019-03-18 19:26] LABS: Hematocrit (blood only) 32.7 % (37-47); Hemoglobin 10.8 g/dL (12.0-16.0); RDW Coefficient of Variation 15.2 % (11.5-14.5); RDW Standard Deviation 53.9 fL (36.4-46.3); Red Blood Count 3.37 M/uL (4.2-5.4); White Blood Count 5.07 K/uL (4.8-10.8)
[2019-03-18 19:38] LABS: Mean Platelet Volume 7.9 fL (7.4-10.4); Platelet Count 95 K/uL (130-400)
[2019-03-18 19:39] LABS: INR 3.1 (0.9-1.1); Prothrombin Time 28.9 Seconds (9.0-12.0)
[2019-03-18 19:47] LABS: Albumin Level 2.5 gm/dl (3.4-5.0); BUN Creatinine Ratio 18.9 (10-20); Calcium 8.7 mg/dl (8.5-10.1); Creatinine Clr Calc Pharmacy 36.2 ml/min; Est GFR (African American) 45.3; Est GFR (Non-African American) 39.1; Potassium 3.5 mmol/L (3.5-5.1)
[2019-03-18 19:58] LABS: Albumin Globulin Ratio 0.7 (0.9-2); Bilirubin,Total 0.3 mg/dl (0.2-1); Globulin 3.5 gm/dl (2.5-4.0); Phosphorus 3.2 mg/dl (2.5-4.9); Thyroid Stimulating Hormone 2.48 uIu/ml (0.300-4.500)
[2019-03-18 20:28] LABS: Basophils # (auto) 0.01 K/uL (0-0.2); Basophils % (auto) 0.2 %; Eosinophils # (auto) 0.02 K/uL (0-0.5); Eosinophils % (auto) 0.4 %; Immature Granulocytes # (auto) 0.06 K/uL (0.00-0.02); Immature Granulocytes % (auto) 1.2 %; Lymphocytes # (auto) 1.75 K/uL (1.2-3.4); Lymphocytes % (auto) 34.5 %; Monocytes # (auto) 0.86 K/uL (0.11-0.59); Neutrophils # (auto) 2.37 K/uL (1.4-6.5); Neutrophils % (auto) 46.7 %
--- NOTE | 2019-03-18 20:33 | XRay Report ---
XR chest 1V portable CLINICAL HISTORY: 73 years-old Female presenting with seizure, sob. TECHNIQUE: Portable upright AP view of the chest was obtained. COMPARISON: 12/03/2018 and CTA chest from 03/04/2019. FINDINGS: Atherosclerosis of the aortic arch. Cardiac silhouette enlarged. Pulmonary vascular prominence. Heter ogeneous radiolucency of the lung parenchyma. Patchy opacities in the right midlung and left lung bas e. Low lung volumes. Small left pleural effusion may be present. No pneumothorax. Osteopenia suspecte d. Upper abdomen normal. IMPRESSION: 1. Persistent focal infiltrate in the right mid lung, which could relate to resolving pneumonia. No new superimposed infiltrate since the prior chest CT. 2. Bibasilar opacities greatest on the left possibly extensive atelectasis. 3. Left pleural effusion may be present. 4. Low lung volumes. 5. Suspected underlying emphysema. 6. Cardiomegaly with volume overload. No nicole pulmonary edema. Electronically signed by: Moncho Dunbar M.D. 03/18/2019 8:32 PM
--- NOTE | 2019-03-18 20:49 | CT Scan Report ---
CT head/brain wo con CLINICAL HISTORY: 73 years-old Female presenting with seizures, h/o seizures, on coumadin. TECHNIQUE: Multidetector CT imaging of the head was performed without the use of intravenous contrast . IV contrast: None. One or more dose lowering techniques were used consistent with the principles of ALARA (as low as reasonably achievable), including automatic exposure control, mA or kV adjustment t o individual patient size, and/or use of iterative reconstruction. COMPARISON: 10/09/2018. CT DOSE (mGy.cm): The estimated cumulative dose is 537.48 mGy.cm. FINDINGS: Nanoscience Technician topogram: Unremarkable. Ventricles and sulci normal in size. No hemorrhage. Redemonstration of the partially calcified mass a t the left frontal vertex measuring approximately 2.8 x 1.8 cm, grossly stable from prior. There has been increased surrounding vasogenic edema in this region. No hyperdensity to suggest hemorrhage. No acute territorial infarct. No mass effect or midline shift. No extra-axial fluid collection. Paranasa l sinuses and mastoid air cells clear. Calvarium intact. IMPRESSION: 1. Increased vasogenic edema surrounding the left frontal vertex mass, consistent with the known art eriovenous malformation. No nicole hemorrhage is evident. Electronically signed by: Moncho Dunbar M.D. 03/18/2019 8:47 PM
[2019-03-18] MEDS ORDERED: DEXAMETHASONE SOD PHOSPHATE 10 MG in SYRINGE 0 ML IV STA (22:57)
[2019-03-18] MEDS ORDERED: LACTATED RINGER'S 1,000 ML IV ONE (23:30)
--- NOTE | 2019-03-18 23:31 | History & Physical Report ---
Date of Service March 18, 2019 Assessment & Plan (1) Breakthrough seizure: Cerebral vasogenic edema on CT hx cerebral AVM status post radiotherapy Lowered seizure threshold possibly from recent Cipro Rx for possible UTI, exhaustion from PT session earlier today as per 's account. Keppra load administered at the ER Supratherapeutic Depakote level ARF chronic respiratory failure secondary to COPD on home O2, pulmonary status at baseline hx PVD past tobacco/alcohol abuse chronic anemia, hemoglobin better than baseline from confinement last month likely secondary to hemoconcentration Chronic thrombocytopenia history DVT on Coumadin. INR slightly supratherapeutic Medical telemetry Neurochecks Seizure precautions, Ativan as needed Neurology consult RE breakthrough seizure (ER provider already in touch with Dr. Carvalho who recommends MRI of the brain, Decadron; continuing patient's Keppra dose and checking Depakote trough level in a.m. to guide subsequent Depakote dosing.) Monitor creatinine response to IV fluids DVT prophylaxis. Coumadin INR goal between 2 and 3 DNR as per patient's previous wishes as per , Mr. Davide Godinez. He does not think patient will agree to MRI study given claustrophobia. He requests updates from providers thru [id number]. History of Present Illness Chief Complaint: Seizures Primary Care Provider: Tanesha Ponce DO History obtained from patient, family, and records. Limited history from patient secondary to disorientation. Medical history significant for seizure disorder, cerebral AVM status post radiotherapy, chronic respiratory failure secondary to COPD on home O2, hx PVD, past tobacco/alcohol abuse, chronic anemia (baseline hemoglobin of 9), Chronic thrombocytopenia,history DVT on Coumadin. Recent confinement February 2019 for U GIB, supratherapeutic INR EGD showed mild gastritis. Colonoscopy showed diverticulosis. Aspirin and Coumadin restar dwain prior to discharge. Yesterday, patient noted increased urinary frequency, urgency, hematuria symptoms without flank pain. On-call physician recommended taking leftover Cipro antibiotic Rx at home for possible UTI. No urine specimen obtained. Today patient more tired than usual after physical therapy session as per . Patient few hours ago weakness seizure manifesting as right leg shaking followed by episode of confusion. Last seizure as per was about 5 months ago. Patient compliant with home medications. Patient administered Ativan sublingual and diazepam rectal. Patient brought to the emergency room. Patient denies chest pain, S OB, cough symptoms. IV Decadron given for vasogenic edema on CT. IV Keppra load given at the emergency room following neurologist on-call recommendations. Medical History as above Surgical History : Cataract surgery, vascular procedures, appendectomy Family History : Dementia, lung cancer, stroke Personal/Social history : Past tobacco/alcohol abuse as per records Allergies Allergy/AdvReac Type Severity Reaction Status Date / Time Sulfa (Sulfonamide Allergy Mild rash Verified 02/25/19 17:23 Antibiotics) alcohol Allergy Unknown Recovering Verified 02/25/19 17:23 Alcoholic Opioids - Morphine Analogues AdvReac Unknown HISTORY OF Verified 02/25/19 17:23 ADDICTION Home Medications Home Medications Medication Instructions Recorded Confirmed Type Incruse Ellipta 1 inh INHALATION QAM 04/11/18 03/18/19 History aspirin [Aspir-81] 81 mg PO QAM 04/11/18 03/18/19 History Breo Ellipta 1 inh INHALATION QAM 10/09/18 03/18/19 History divalproex 1,000 mg PO QAM 10/09/18 03/18/19 History divalproex 1,250 mg PO QPM 10/09/18 03/18/19 History furosemide 40 mg PO BIDM 10/09/18 03/18/19 History metoprolol succinate 25 mg PO QDD 10/09/18 03/18/19 History potassium chloride [Klor-Con M10] 10 meq PO TIDM 10/09/18 03/18/19 History warfarin [Coumadin] 5 mg PO QDD 10/09/18 03/18/19 History diazepam [Diastat] 5 mg [place] Q12H PRN #7 ea 10/11/18 03/18/19 Rx levetiracetam 250 mg PO DAILY 02/25/19 03/18/19 History pantoprazole 40 mg PO DAILY 30 Days #30 tab 02/27/19 03/18/19 Rx acetaminophen 325 mg PO Q6H PRN 03/18/19 03/18/19 History lorazepam [Ativan] 1 mg BUCCAL UD PRN 03/18/19 03/18/19 History Past Med/Surg History Medical History History of DVT (deep vein thrombosis) (Chronic) Hematoma of right thigh (Resolved) Non-ischemic cardiomyopathy (Chronic) Obesity (BMI 30.0-34.9) (Chronic) 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 with INR goal of 2.0-3.0 (Chronic) Vasogenic edema (Resolved) AVM (arteriovenous malformation) brain (Chronic) Seizures (Chronic) AA (alcohol abuse) (Resolved) COPD (chronic obstructive pulmonary disease) (Chronic) Surgical History History of appendectomy (Chronic) History of cataract surgery (Chronic) Family History Mother Stroke Heart disease Social History Preferred Language: Ukrainian Communication Ability: Effective Visual Impairment: No Limitations Clinical Haematologist Required: No Beliefs That Will Affect Care: None marital status: Current Living Situation: Spouse Current Living Situation Comment: [facility] current occupational status: retired Other Information That Helps Us Care for You: No Feels Safe at Home: Yes Safety Concerns: Feels Safe At This Time Smoking Status: Former smoker Tobacco Type: cigarettes ; Cigarettes Per Day: 40 ; Do You Dip or Chew Tobacco: No ; Second Hand Exposure: No ; Tobacco Cessation Education Requested by Patient: No Hx Alcohol Use: No Hx Substance Use: No Review of Systems Review of Systems: Could not be reliably obtained Physical Exam Physical Exam: GENERAL: Comfortable, dysphasic, struggles with recent memory, no respiratory distress, obese SKIN: Pallor , warm HEENT: Pale palpebral conjunctivae, no ptosis, dry buccal mucosa NECK : Supple, short neck, no tenderness CHEST : Decreased breath sounds , no tenderness HEART : RRR, no obvious murmurs ABDOMEN: distention, nontender EXTREMITIES : minimal LE swelling/no LE tenderness, no other conspicuous defo rmities noted NEUROLOGIC : Coherent, dysphasic, intermittent echolalia, no facial asymmetry, intention tremors, MMTS BUE 4/5, RLE 3/5, LLE 4/5, gait and stance not assessed Results & Data Vital Signs (Past 12 Hours) Vital Signs Temp Pulse Resp BP Pulse Ox 03/18/19 20:30 71 22 100/68 98 03/18/19 20:00 86 25 H 94/60 L 96 03/18/19 19:30 72 24 104/78 97 03/18/19 19:00 79 22 110/62 96 03/18/19 18:50 78 23 136/118 H 97 03/18/19 18:02 36.4 C L 75 20 136/118 H 95 Laboratory Results Laboratory Results WBC 5.07 K/uL (4.8-10.8) 03/18/19 19:07 RBC 3.37 M/uL (4.2-5.4) L 03/18/19 19:07 Hgb 10.8 g/dL (12.0-16.0) L 03/18/19 19:07 Hct 32.7 % (37-47) L 03/18/19 19:07 MCV 97.0 fL (80-100) 03/18/19 19:07 MCH 32.0 pg (25-34) 03/18/19 19:07 MCHC 33.0 g/dL (32-36) 03/18/19 19:07 RDW Std Deviation 53.9 fL (36.4-46.3) H 03/18/19 19:07 RDW Coeff of Delmer 15.2 % (11.5-14.5) H 03/18/19 19:07 Plt Count 95 K/uL (130-400) L 03/18/19 19:07 MPV 7.9 fL (7.4-10.4) 03/18/19 19:07 Immature Gran % (Auto) 1.2 % 03/18/19 19:07 Neut % (Auto) 46.7 % 03/18/19 19:07 Lymph % (Auto) 34.5 % 03/18/19 19:07 Dyer % (Auto) 17.0 % 03/18/19 19:07 Eos % (Auto) 0.4 % 03/18/19 19:07 Baso % (Auto) 0.2 % 03/18/19 19:07 Immature Gran # (Auto) 0.06 K/uL (0.00-0.02) H 03/18/19 19:07 Neut # (Auto) 2.37 K/uL (1.4-6.5) 03/18/19 19:07 Lymph # (Auto) 1.75 K/uL (1.2-3.4) 03/18/19 19:07 Dyer # (Auto) 0.86 K/uL (0.11-0.59) H 03/18/19 19:07 Eos # (Auto) 0.02 K/uL (0-0.5) 03/18/19 19:07 Baso # (Auto) 0.01 K/uL (0-0.2) 03/18/19 19:07 PT 28.9 Seconds (9.0-12.0) H 03/18/19 19:07 INR 3.1 (0.9-1.1) H 03/18/19 19:07 Sodium 140 mmol/L (136-145) 03/18/19 19:07 Potassium 3.5 mmol/L (3.5-5.1) 03/18/19 19:07 Chloride 98 mmol/L (98-107) 03/18/19 19:07 Carbon Dioxide 36 mmol/L (21-32) H 03/18/19 19:07 Anion Gap 6.0 (3-11) 03/18/19 19:07 BUN 26 mg/dl (7-18) H 03/18/19 19:07 Creatinine 1.35 mg/dl (0.6-1.2) H 03/18/19 19:07 Est Cr Clr Drug Dosing 36.2 ml/min 03/18/19 19:07 Est GFR ( Amer) 45.3 03/18/19 19:07 Est GFR (Non-Af Amer) 39.1 03/18/19 19:07 BUN/Creatinine Ratio 18.9 (10-20) 03/18/19 19:07 Glucose 115 mg/dl (70-99) H 03/18/19 19:07 Calcium 8.7 mg/dl (8.5-10.1) 03/18/19 19:07 Phosphorus 3.2 mg/dl (2.5-4.9) 03/18/19 19:07 Magnesium 2.0 mg/dl (1.8-2.4) 03/18/19 19:07 Total Bilirubin 0.3 mg/dl (0.2-1) 03/18/19 19:07 AST 40 U/L (15-37) H 03/18/19 19:07 ALT 19 U/L (12-78) 03/18/19 19:07 Alkaline Phosphatase 77 U/L (45-117) 03/18/19 19:07 NT-Pro-B Natriuret Pep 599 pg/ml (0-900) 03/18/19 19:07 Total Protein 6.0 gm/dl (6.4-8.2) L 03/18/19 19: Albumin 2.5 gm/dl (3.4-5.0) L 03/18/19: Globulin 3.5 gm/dl (2.5-4.0) 03/18/19 19: Albumin/Globulin Ratio 0.7 (0.9-2) L 03/18/19 19: Lipase 206 U/L (73-393) 03/18/19 19: TSH 2.480 uIu/ml (0.300-4.500) 03/18/19 19: Urine Color Yellow 03/18/19 18:30 Urine Appearance Clear (Clear) 03/18/19 18:30 Urine pH 8.0 (4.5-7.5) H 03/18/19 18:30 Ur Specific Ismay 1.010 (1.000-1.030) 03/18/19 18:30 Urine Protein Negative (Negative) 03/18/19 18:30 Urine Glucose (UA) Negative (Negative) 03/18/19 18:30 Urine Ketones Negative (Negative) 03/18/19 18:30 Urine Blood Negative (Negative) 03/18/19 18:30 Urine Nitrite Negative (Negative) 03/18/19 18:30 Urine Bilirubin Negative (Negative) 03/18/19 18:30 Urine Urobilinogen Negative (Negative) 03/18/19 18:30 Ur Leukocyte Esterase Negative (Negative) 03/18/19 18:30 Valproic Acid 122 mcg/ml (50-100) H 03/18/19 19: Ethyl Alcohol mg/dL < 3.0 mg/dl (0-3) 03/18/19 19: Diagnostic Findings CT head: Increased vasogenic edema surrounding the left frontal vertex mass, consistent with the known arteriovenous malformation. No nicole hemorrhage is evident. Chest x-ray: 1. Persistent focal infiltrate in the right mid lung, which could relate to resolving pneumonia. No new superimposed infiltrate since the prior chest CT. 2. Bibasilar opacities greatest on the left possibly extensive atelectasis. 3. Left pleural effusion may be present. 4. Low lung volumes. 5. Suspected underlying emphysema. 6. Cardiomegaly with volume overload. No nicole pulmonary edema.
[2019-03-19] MEDS ORDERED: DEXAMETHASONE **PF** INJ 10 MG/ML VIAL ONE (00:17)
--- NOTE | 2019-03-19 00:17 | Emergency Department Note ---
Entered by Catalina Noriega acting as a scribe for Kenton Mcgregor MD History of Present Illness General Chief complaint: Seizure Stated complaint: SEIZURE Time Seen by Provider: 03/18/19 18:08 Source: patient History of Present Illness Provider complaint: Seizure Onset (ago): hour(s) 2 Location: head Radiation: non-radiation Relieved By: + none Associated symptoms: + confusion The patient is a 73 year old female who presents to the Emergency Room with complaints of a seizure that occurred 2 hours prior to arrival. The patient's family states the symptoms do not radiate anywhere else on the body and are not relieved by anything specific. The patient's family reports the patient is experiencing confusion. The patient's family states they gave the patient 2mg of Ativan and 5mg of rectal Valium which successfully resolved the patient's seizure activity. Additionally, the patient's family reports the patient had been having seizures once every month but has been 4 months seizure free up until today's episode. The patient's family notes that the patient was recently clinically diagnosed with a urinary tract infection and has been taking Cipro for the past 24 hours. Home Medications Home Medications Medication Instructions Recorded Confirmed Type Incruse Ellipta 1 inh INHALATION QAM 04/11/18 03/18/19 History aspirin [Aspir-81] 81 mg PO QAM 04/11/18 03/18/19 History Breo Ellipta 1 inh INHALATION QAM 10/09/18 03/18/19 History divalproex 1,000 mg PO QAM 10/09/18 03/18/19 History divalproex 1,250 mg PO QPM 10/09/18 03/18/19 History furosemide 40 mg PO BIDM 10/09/18 03/18/19 History metoprolol succinate 25 mg PO QDD 10/09/18 03/18/19 History potassium chloride [Klor-Con M10] 10 meq PO TIDM 10/09/18 03/18/19 History warfarin [Coumadin] 5 mg PO QDD 10/09/18 03/18/19 History diazepam [Diastat] 5 mg OR Q12H PRN #7 ea 10/11/18 03/18/19 Rx levetiracetam 250 mg PO DAILY 02/25/19 03/18/19 History pantoprazole 40 mg PO DAILY 30 Days #30 tab 02/27/19 03/18/19 Rx acetaminophen 325 mg PO Q6H PRN 03/18/19 03/18/19 History lorazepam [Ativan] 1 mg BUCCAL UD PRN 03/18/19 03/18/19 History Allergies Allergy/AdvReac Type Severity Reaction Status Date / Time Sulfa (Sulfonamide Allergy Mild rash Verified 02/25/19 17:23 Antibiotics) alcohol Allergy Unknown Recovering Verified 02/25/19 17:23 Alcoholic Opioids - Morphine Analogues AdvReac Unknown HISTORY OF Verified 02/25/19 17:23 ADDICTION Past Med/Surg History Medical History History of DVT (deep vein thrombosis) (Chronic) Hematoma of right thigh (Resolved) Non-ischemic cardiomyopathy (Chronic) Obesity (BMI 30.0-34.9) (Chronic) long-term current use of anticoagulants with INR goal of 2.0-3.0 (Chronic) Vasogenic edema (Resolved) AVM (arteriovenous malformation) brain (Chronic) Seizures (Chronic) AA (alcohol abuse) (Resolved) COPD (chronic obstructive pulmonary disease) (Chronic) Surgical History History of appendectomy (Chronic) History of cataract surgery (Chronic) Family History Mother Stroke Heart disease Social History Preferred Language: Albanian Communication Ability: Effective Visual Impairment: No Limitations 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 and A total of 10 systems reviewed and were otherwise negative Physical Exam Vital Signs Vital Signs - 24 hr 03/18/19 18:02 03/18/19 18:50 10/14/19 19:00 Temperature 36.4 C L Temperature Source Oral Sepsis Recent Fever Within 48 Hours No Sepsis New/Unexplained Change in Mental Status No Sepsis Action Taken by Nursing No Action Required Pulse Rate 75 78 79 Pulse Rate from SpO2 Sensor 71 81 Respiratory Rate 20 23 22 Blood Pressure 136/118 H 136/118 H 110/62 Blood Pressure Mean 124 124 78 Pulse Oximetry 95 97 96 Oxygen Delivery Method Room Air Oxygen Flow Rate 2 03/18/19 19:30 03/18/19 20:00 03/18/19 20:30 Temperature Temperature Source Sepsis Recent Fever Within 48 Hours Sepsis New/Unexplained Change in Mental Status Sepsis Action Taken by Nursing Pulse Rate 72 86 71 Pulse Rate from SpO2 Sensor 70 Respiratory Rate 24 25 H 22 Blood Pressure 104/78 94/60 L 100/68 Blood Pressure Mean 86 71 78 Pulse Oximetry 97 96 98 Oxygen Delivery Method Oxygen Flow Rate 03/18/19 21:00 03/18/19 21:30 03/18/19 22:00 Temperature Temperature Source Sepsis Recent Fever Within 48 Hours Sepsis New/Unexplained Change in Mental Status Sepsis Action Taken by Nursing Pulse Rate 72 70 75 Pulse Rate from SpO2 Sensor Respiratory Rate 22 19 15 Blood Pressure 115/56 L 121/63 117/67 Blood Pressure Mean 75 82 83 Pulse Oximetry Oxygen Delivery Method Oxygen Flow Rate 03/18/19 22:30 03/18/19 23:00 03/18/19 23:30 Temperature Temperature Source Sepsis Recent Fever Within 48 Hours Sepsis New/Unexplained Change in Mental Status Sepsis Action Taken by Nursing Pulse Rate 72 73 74 Pulse Rate from SpO2 Sensor Respiratory Rate 17 19 16 Blood Pressure 104/93 99/60 L 127/74 Blood Pressure Mean 96 73 91 Pulse Oximetry Oxygen Delivery Method Oxygen Flow Rate GENERAL: Awake, alert, fatigued-appearing, in no distress. Expressive aphasia. HENT: Normocephalic, atraumatic. Oropharynx with dry mucous membranes and otherwise unremarkable. EYES: Normal conjunctiva. Sclera non-icteric. EOMI. No nystamgus. PEARRL. NECK: Supple. No nuchal rigidity. FROM. No JVD. RESPIRATORY: Scant intermittent wheeze, otherwise clear. CARDIAC: Regular rate, normal rhythm. Extremities warm and well perfused. Pulses equal. ABDOMEN: Soft, non-distended. No tenderness to palpation. No rebound or guar ding. No masses. RECTAL: Deferred. MUSCULOSKELETAL: Chest examination reveals no tenderness. The back is symmetrical on inspection without obvious abnormality. There is no CVA tenderness to palpation. No joint edema. LOWER EXTREMITIES: Calves are equal size bilaterally and non-tender. No edema. No discoloration. NEURO: Alert. Expressive aphasia. Able to answer some basic questions. Follows commands. Residual right upper and lower extremity intermittent myoclonus with 2/5 strength that reports occurs after her seizures. 4+/5 strength of LUE and LLE. SKIN: No rash or jaundice noted. Course 184: Past medical records reviewed. The patient was evaluated in room A02. A complete history and physical exam was performed. 2128: I spoke with Dr. Dunbar- Radiologist about the patient's case and he agrees that her vasogenic edema has increased. 2227: I spoke with Dr. Connell- Neurology about the patient's case and he agrees with admission and wants the patient to continue taking the Depakote as prescribed. Additionally, he recommends the patient get an MRI to further assess vasogenic edema. No need for transfer. 2243: I spoke with Dr. Rowe about the patient's case and he will accept the patient for further evaluation. Administered Medications Lactated Ringer's (Lr) 1,000 mls @ 80 mls/hr IV .[id number] ONE Stop: 03/19/19 14:29 Last Admin: 03/19/19 02:49 Dose: 80 mls/hr Documented by: [id number] Insulin Aspart (Novolog Flexpen) 0 units SC ACHS MILY Stop: 04/18/19 01:14 Last Admin: 03/19/19 01:44 Dose: Not Given Documented by: [id number] Cosigned by: [id number] Discontinued Medications Dexamethasone Sodium Phosphate (Decadron Pf) Confirm Administered Dose 10 mg .ROUTE .STK-MED ONE Stop: 03/19/19 00:18 Last Admin: 03/19/19 00:20 Dose: 10 mg Documented by: [id number] Sodium Chloride (Nss 1000ml) 1,000 mls @ 999 mls/hr IV .Q1H1M ONE Stop: 03/18/19 19:32 Last Infusion: 03/18/19 20:46 Dose: 0 mls/hr Documented by: [id number] Admin: 03/18/19 19:11 Dose: 999 mls/hr Documented by: [id number] Lorazepam (Ativan) 1 mg in 2 mls @ 2 mls/min IV NOW STA Stop: 03/18/19 18:45 Last Admin: 03/18/19 18:49 Dose: 2 mls/min Documented by: [id number] Levetiracetam 1,500 mg/ (Dextrose) 115 mls @ 440 mls/hr IV NOW STA Stop: 03/18/19 19:00 Last Infusion: 03/18/19 20:46 Dose: 0 mls/hr Documented by: [id number] Admin: 03/18/19 19:10 Dose: 440 mls/hr Documented by: [id number] Dexamethasone Sodium Phosphate (10 mg/ Syringe) 2.5 mls @ 1 mls/min IV NOW STA Stop: 03/18/19 22:59 Last Admin: 03/19/19 00:20 Dose: Not Given Documented by: [id number] Lactated Ringer's (Lr) 1,000 mls @ 500 mls/hr IV .Q2H ONE Stop: 03/19/19 01:29 Last Infusion: 03/19/19 03:44 Dose: 0 mls/hr Documented by: [id number] Admin: 03/19/19 01:01 Dose: 500 mls/hr Documented by: [id number] Medical Decision Making Differential Diagnosis Differential diagnosis includes etiologies such as infection, hypoglycemia, electrolyte abnormalities, cardiac sources, intracerebral event, trauma, toxicologic, neurologic, as well as others were entertained. Medical Records Attestation: I reviewed the patient's medical records. Home Medications Current Medication List: was personally reviewed by me Laboratory Data Attestation: I reviewed the patient's lab results. Result diagrams: 03/18/19 19:07 03/18/19 19:07 Lab Results 03/18/19 03/18/19 03/18/19 Range/Units 18:30 19:07 19:07 WBC 5.07 (4.8-10.8) K/uL RBC 3.37 L (4.2-5.4) M/uL Hgb 10.8 L (12.0-16.0) g/dL Hct 32.7 L (37-47) % MCV 97.0 (80-100) fL MCH 32.0 (25-34) pg MCHC 33.0 (32-36) g/dL RDW Std Deviation 53.9 H (36.4-46.3) fL RDW Coeff of Delmer 15.2 H (11.5-14.5) % Plt Count 95 L (130-400) K/uL MPV 7.9 (7.4-10.4) fL Immature Gran % (Auto) 1.2 % Neut % (Auto) 46.7 % Lymph % (Auto) 34.5 % Sierra % (Auto) 17.0 % Eos % (Auto) 0.4 % Baso % (Auto) 0.2 % Immature Gran # (Auto) 0.06 H (0.00-0.02) K/uL Neut # (Auto) 2.37 (1.4-6.5) K/uL Lymph # (Auto) 1.75 (1.2-3.4) K/uL Sierra # (Auto) 0.86 H (0.11-0.59) K/uL Eos # (Auto) 0.02 (0-0.5) K/uL Baso # (Auto) 0.01 (0-0.2) K/uL PT 28.9 H (9.0-12.0) Seconds INR 3.1 H (0.9-1.1) Sodium (136-145) mmol/L Potassium (3.5-5.1) mmol/L Chloride (98-107) mmol/L Carbon Dioxide (21-32) mmol/L Anion Gap (3-11) BUN (7-18) mg/dl Creatinine (0.6-1.2) mg/dl Est Cr Clr Drug Dosing ml/min Est GFR ( Amer) Est GFR (Non-Af Amer) BUN/Creatinine Ratio (10-20) Glucose (70-99) mg/dl Calcium (8.5-10.1) mg/dl Phosphorus (2.5-4.9) mg/dl Magnesium (1.8-2.4) mg/dl Total Bilirubin (0.2-1) mg/dl AST (15-37) U/L ALT (12-78) U/L Alkaline Phosphatase (45-117) U/L NT-Pro-B Natriuret Pep (0-900) pg/ml Total Protein (6.4-8.2) gm/dl Albumin (3.4-5.0) gm/dl Globulin (2.5-4.0) gm/dl Albumin/Globulin Ratio (0.9-2) Lipase (73-393) U/L TSH (0.300-4.500) uIu/ml Urine Color Yellow Urine Appearance Clear (Clear) Urine pH 8.0 H (4.5-7.5) Ur Specific [place] 1.010 (1.000-1.030) Urine Protein Negative (Negative) Urine Glucose (UA) Negative (Negative) Urine Ketones Negative (Negative) Urine Blood Negative (Negative) Urine Nitrite Negative (Negative) Urine Bilirubin Negative (Negative) Urine Urobilinogen Negative (Negative) Ur Leukocyte Esterase Negative (Negative) Valproic Acid (50-100) mcg/ml Ethyl Alcohol mg/dL (0-3) mg/dl 03/18/19 03/18/19 03/18/19 Range/Units 19:07 19:07 19:07 WBC (4.8-10.8) K/uL RBC (4.2-5.4) M/uL Hgb (12.0-16.0) g/dL Hct (37-47) % MCV (80-100) fL MCH (25-34) pg MCHC (32-36) g/dL RDW Std Deviation (36.4-46.3) fL RDW Coeff of Delmer (11.5-14.5) % Plt Count (130-400) K/uL MPV (7.4-10.4) fL Immature Gran % (Auto) % Neut % (Auto) % Lymph % (Auto) % Sierra % (Auto) % Eos % (Auto) % Baso % (Auto) % Immature Gran # (Auto) (0.00-0.02) K/uL Neut # (Auto) (1.4-6.5) K/uL Lymph # (Auto) (1.2-3.4) K/uL Sierra # (Auto) (0.11-0.59) K/uL Eos # (Auto) (0-0.5) K/uL Baso # (Auto) (0-0.2) K/uL PT (9.0-12.0) Seconds INR (0.9-1.1) Sodium 140 (136-145) mmol/L Potassium 3.5 (3.5-5.1) mmol/L Chloride 98 (98-107) mmol/L Carbon Dioxide 36 H (21-32) mmol/L Anion Gap 6.0 (3-11) BUN 26 H (7-18) mg/dl Creatinine 1.35 H (0.6-1.2) mg/dl Est Cr Clr Drug Dosing 36.2 ml/min Est GFR ( Amer) 45.3 Est GFR (Non-Af Amer) 39.1 BUN/Creatinine Ratio 18.9 (10-20) Glucose 115 H (70-99) mg/dl Calcium 8.7 (8.5-10.1) mg/dl Phosphorus 3.2 (2.5-4.9) mg/dl Magnesium 2.0 (1.8-2.4) mg/dl Total Bilirubin 0.3 (0.2-1) mg/dl AST 40 H (15-37) U/L ALT 19 (12-78) U/L Alkaline Phosphatase 77 (45-117) U/L NT-Pro-B Natriuret Pep 599 (0-900) pg/ml Total Protein 6.0 L (6.4-8.2) gm/dl Albumin 2.5 L (3.4-5.0) gm/dl Globulin 3.5 (2.5-4.0) gm/dl Albumin/Globulin Ratio 0.7 L (0.9-2) Lipase 206 (73-393) U/L TSH 2.480 (0.300-4.500) uIu/ml Urine Color Urine Appearance (Clear) Urine pH (4.5-7.5) Ur Specific [place] (1.000-1.030) Urine Protein (Negative) Urine Glucose (UA) (Negative) Urine Ketones (Negative) Urine Blood (Negative) Urine Nitrite (Negative) Urine Bilirubin (Negative) Urine Urobilinogen (Negative) Ur Leukocyte Esterase (Negative) Valproic Acid 122 H (50-100) mcg/ml Ethyl Alcohol mg/dL < 3.0 (0-3) mg/dl Imaging Data Radiologist's Impression: Radiology results as stated below per my review and the radiologist's interpretation: XR chest 1V portable CLINICAL HISTORY: 73 years-old Female presenting with seizure, sob. TECHNIQUE: Portable upright AP view of the chest was obtained. COMPARISON: 12/03/2018 and CTA chest from 03/04/2019. FINDINGS: Atherosclerosis of the aortic arch. Cardiac silhouette enlarged. Pulmonary vascular prominence. Heterogeneous radiolucency of the lung parenchyma. Patchy opacities in the right midlung and left lung base. Low lung volumes. Small left pleural effusion may be present. No pneumothorax. Osteopenia suspected. Upper abdomen normal. IMPRESSION: 1. Persistent focal infiltrate in the right mid lung, which could relate to resolving pneumonia. No new superimposed infiltrate since the prior chest CT. 2. Bibasilar opacities greatest on the left possibly extensive atelectasis. 3. Left pleural effusion may be present. 4. Low lung volumes. 5. Suspected underlying emphysema. 6. Cardiomegaly with volume overload. No nicole pulmonary edema. Electronically signed by: Moncho Dunbar M.D. 03/18/2019 8:[address] head/brain wo con CLINICAL HISTORY: 73 years-old Female presenting with seizures, h/o seizures, on coumadin. TECHNIQUE: Multidetector CT imaging of the head was performed without the use of intravenous contrast. IV contrast: None. One or more dose lowering techniques were used consistent with the principles of ALARA (as low as reasonably achievable), including automatic exposure control, mA or kV adjustment to individual patient size, and/or use of iterative reconstruction. COMPARISON: 10/09/2018. CT DOSE (mGy.cm): The estimated cumulative dose is 537.48 mGy.cm. 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 Ventricles and sulci normal in size. No hemorrhage. Redemonstration of the partially calcified mass at the left frontal vertex measuring approximately 2.8 x 1.8 cm, grossly stable from prior. There has been increased surrounding vasogenic edema in this region. No hyperdensity to suggest hemorrhage. No acute territorial infarct. No mass effect or midline shift. No extra-axial fluid collection. Paranasal sinuses and mastoid air cells clear. Calvarium intact. IMPRESSION: 1. Increased vasogenic edema surrounding the left frontal vertex mass, consistent with the known arteriovenous malformation. No nicole hemorrhage is evident. Electronically signed by: Moncho Dunbar M.D. 03/18/2019 8:47 PM ECG Data Attestation: I personally reviewed and interpreted this ECG as follows: Indication: other (Seizure) Rate (beats per minute): 80 Rhythm: normal sinus Findings: + other (Normal axis, Non-specific T wave abnormality); no PAC, no PVC and no acute ischemic change Blood Pressure Blood Pressure Findings: Normal blood pressure Blood Pressure Disposition: further management by hospitalist BERE Narrative The patient is a pleasant 73-year-old woman with a past medical history of seizure disorder secondary to AVM status post radiation treatment in April 2018 with associated vasogenic edema, history of COPD on baseline home O2, nonischemic cardiomyopathy that has resolved, who presents emergency department with seizure episode prior to arrival per hpi. On arrival the patient is chronically ill-appearing but no acute distress, AFVSS. Patient appears clinically dry. Patient is alert. Expressive aphasia. Able to answer some basic questions. Follows commands. Residual right upper and lower extremity in termittent myoclonus with 2/5 strength that reports occurs after her seizures. 4+/5 strength of LUE and LLE. Patient's reports that patient's seizures usually are generalized tonic-clonic however is concerned that she is continuing to have seizures as she has residual mild clonus of her right upper and right lower extremity which she reports is new. Otherwise he reports that they presume she may have had a urinary tract infection yesterday based on the odor and was started empirically on ciprofloxacin by their PCP. EKG without overt acute ischemia. Chest x-ray negative for acute process when compared to recent CT. WBC within normal limits. H/H 10.8/32.7 within prior range of values. Plate is 95 similar to prior range of values. INR 3.1. Creatinine 1.35 slightly increased from recent and consistent with the patient's clinically dry appearance. Chemistry without acidosis. AST 40, similar to prior values. Electrolytes and LFTs otherwise unremarkable. UA negative for infection however in the setting of starting ciprofloxacin yesterday. Valproic acid slightly elevated at 122 which is just prior to when the patient would receive her evening dose. Given the patient's likely partial seizure activity on arrival she was given 1 mg of Ativan and loaded with 20 mg/kg (1500mg) of Keppra with good effect and resolution of her myoclonus. CT head read demonstrates the patient's previously known AV malformation which is unchanged in size however does show progression of vasogenic edema. I did discuss this finding with Dr. Dunbar, radiology, and while the edema is slightly progressed from October it is appreciably progressed since April. Given the patient did have her radiation April a certain amount of progression is expected. We did discuss the case with Dr. Connell, [facility] neurology, did not feel the patient required transfer for her CT findings. Recommends dexamethasone until findings can be further clarified an MRI and agrees with Keppra load and to continue the patient's home Depakote and Keppra dose. Case was discussed with Dr. Rowe, [facility] hospitalist, who will evaluate the patient for admission. Impression & Plan Seizure disorder, Acute dehydration, Witnessed seizure, Acute kidney insufficiency, H/O arteriovenous malformation (AVM) Critical Care Time Critical Care Time: Yes Total Critical Care Time: 75 I have personally spent greater than 75 minutes of critical care time in the direct management of this patient. This includes bedside care, interpretation o f diagnostic studies, and testing, discussion with consultants, patient, and family members, and other required patient management activities. This 75 minutes is in excess of all separately billable procedures. Discharge Plan Visit Data *Final* Discharge Date/Time: 03/19/19 00:28 Chief Complaint: Seizure Stated Complaint: SEIZURE ED Provider: Kenton Mcgregor Discharge Problem: Seizure disorder, Acute dehydration, Witnessed seizure, Acute kidney insufficiency, H/O arteriovenous malformation (AVM) Patient Disposition: Admitted As Inpatient Discharge Instructions Interventions: ED Discharge Assessment Last Done: 03/19/19 00:28 The scribe's documentation has been prepared under my direction and personally reviewed by me in its entirety. I confirm that the note above accurately reflects all work, treatment, procedures, and medical decision making performed by me.
[2019-03-19] MEDS ORDERED: GLUCOSE 10 TABS/TUBE PO PRN (01:15)
[2019-03-19] MEDS ORDERED: GLUCOSE 40% GEL 15 GM TUBE PO PRN (01:15)
[2019-03-19] MEDS ORDERED: OXYCODONE HCL IR 5 MG TAB (IMMEDIATE RELEASE) PO PRN (01:15)
[2019-03-19] MEDS ORDERED: CARBOHYDRATES FOR HYPOGLYCEMIA PO PRN (01:15)
[2019-03-19] MEDS ORDERED: NITROGLYCERIN SL 0.4 MG/TAB TAB SL PRN (01:15)
[2019-03-19] MEDS ORDERED: DEXTROSE 50% 50 ML SYRINGE IV PRN (01:15)
[2019-03-19] MEDS ORDERED: LORazepam 1 MG/2 ML VIAL IV PRN (01:15)
[2019-03-19] MEDS ORDERED: ACETAMINOPHEN 325 MG TAB PO PRN ×2 (01:15)
[2019-03-19] MEDS ORDERED: PROMETHAZINE HCL 12.5 MG in SODIUM CHLORIDE 0.9% 50 ML IV PRN (01:15)
[2019-03-19] MEDS ORDERED: GLUCAGON FOR INJ 1 MG VIAL SQ PRN (01:15)
[2019-03-19] MEDS: INSULIN ASPART 100 UNITS/ML 3 ML PEN SC SCH ×5 (01:44→20:47)
[2019-03-19] MEDS ORDERED: LACTATED RINGER'S 1,000 ML IV ONE (02:00)
[2019-03-19] MEDS ORDERED: LORazepam 0.25 MG/0.5 ML VIAL IV PRN (05:40)
[2019-03-19] MEDS: DEXAMETHASONE SOD PHOSPHATE 4 MG in SYRINGE 0 ML IV SCH ×3 (05:54→18:46)
[2019-03-19 06:17] LABS: Hematocrit (blood only) 29.6 % (37-47); Hemoglobin 9.7 g/dL (12.0-16.0); Mean Corpuscular Hemoglobin 31.6 pg (25-34); Mean Corpuscular Hgb Conc 32.8 g/dL (32-36); Mean Corpuscular Volume 96.4 fL (80-100); RDW Coefficient of Variation 15.2 % (11.5-14.5); RDW Standard Deviation 52.9 fL (36.4-46.3); Red Blood Count 3.07 M/uL (4.2-5.4); White Blood Count 4.28 K/uL (4.8-10.8)
[2019-03-19 06:27] LABS: Mean Platelet Volume 7.8 fL (7.4-10.4); Platelet Count 81 K/uL (130-400)
[2019-03-19 06:39] LABS: Basophils # (auto) 0.01 K/uL (0-0.2); Basophils % (auto) 0.2 %; INR 3.5 (0.9-1.1); Immature Granulocytes # (auto) 0.08 K/uL (0.00-0.02); Immature Granulocytes % (auto) 1.9 %; Lymphocytes # (auto) 1.23 K/uL (1.2-3.4); Lymphocytes % (auto) 28.7 %; Monocytes # (auto) 0.13 K/uL (0.11-0.59); Neutrophils # (auto) 2.83 K/uL (1.4-6.5); Neutrophils % (auto) 66.2 %; Partial Thromboplastin Ratio 1.8; Prothrombin Time 32.5 Seconds (9.0-12.0); RBC Morphology Unremarkable
[2019-03-19 07:00] LABS: BUN Creatinine Ratio 23.1 (10-20); Est GFR (African American) 61.4; Potassium 4.4 mmol/L (3.5-5.1)
[2019-03-19 07:38] LABS: Partial Thromboplastin Time 48.8 Seconds (21.0-31.0)
[2019-03-19] MEDS: PANTOprazole 40 MG TAB PO SCH (07:59)
[2019-03-19] MEDS: ASPIRIN 81 MG ECTAB PO SCH (07:59)
[2019-03-19] MEDS ORDERED: INCRUSE ELLIPTA~ORDER AWAITING ACTION SCH (08:00)
[2019-03-19] MEDS: UMECLIDINIUM BROMIDE INH SCH (08:47)
[2019-03-19] MEDS: FLUTICASONE/VILANTEROL INHALER INH SCH (08:47)
[2019-03-19] MEDS ORDERED: levETIRAcetam 250 MG TAB PO SCH ×2 (09:00→20:00)
[2019-03-19] MEDS ORDERED: NON-FORMULARY MEDICATION (Fluticasone Furoate-Vilanterol [Breo Ellipta] 1 PUFFS) INH SCH (09:00)
[2019-03-19] MEDS ORDERED: DIVALPROEX EXTENDED RELEASE 500 MG TAB PO SCH ×3 (09:00→21:00)
--- NOTE | 2019-03-19 15:07 | Neurology Consultation ---
Date of Consultation March 19, 2019 Assessment & Plan (1) Breakthrough seizure: 1. underlying vasoedema- continue decadron 4 mg q6 hours 2. repeat CT head- tomorrow 3. stop keppra 250 mg 4. depakote 1000 mg 8a and 1250 mg 2000 for now 5. seizure and fall precautions 6. PT/OT for discharge needs 7. at discharge will need a very slow taper and may need sustained dosing for several weeks 8. may consider switching depakote to Vimpat to help with tremor 9. INR- therapeutic DVT 2.0-3.0 monitor 10. UTI- no current infection 11. vimpat will load 200 mg now and start vimpat 100 mg 1999 12. will start depakote taper very slowly but hold current dosing for now 13. EEG -routine for tomorrow am Supervising Physician Co-Signing Physician Notes Patient was seen and examined. 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 On examine patient has mixed aphasia. Comprehension is impaired. Speech is non fluent. She is not able to repeat. Following some simple commands. Moving all 4 extremities against gravity. Has some intermittent myoclonic jerks. No family at bedside. - Recommend to continue current dose of Depakote. Trough level is WNL - Recommend loading with Vimpat 200 mg now. Then starting maintenance 100 mg BID. - Discontinue Keppra - Continue Decadron 4 mg Q6hr for now for vasogenic edema - Routine EEG - Neuro checks Q4hr, Seizure precautions Will continue to follow. History of Present Illness Reason for Consultation: break through seizure with vasoedema Requesting Physician: Anam Peck MD Attending Physician: Anam Peck MD History of Present Illness Kathy is a 73 year old female with PMH - COPD, history of DVTs, stress-induced cardiomyopathy,01/2018 she sustained a fall with resultant CT of the head demonstrated incidental finding of AV malformation. She had a 1 time radiation in 04/2018 to the AVM and developed vasogenic edema, seizure /status epilepticus. Her Depakote level was increased to 1500 mg BID but she decreased after he level was supratherapeutic. She is now on 1000 mg am 1250 mg pm. She lives with her she took 2 doses of Cipro and had a very exhausting work out from the at home PT. She had a seizure and was given ativan and diastat suppository prior to EMS bring her to the ED. In the ER still she was a confused and drowsy, and her right side was still somewhat shaky. She was IV keppra 1g in the ED. Currently she is awake and responding but still having some word finding issues. A CT head was done and she was found to have increased vaso edema. She was then started on Decadron 4mg IV q 6 hours. She was unable to feed herself this am due to the increased tremor in her right hand due to the depakote. denies CP, SOB, abdominal pain, +one sided weakness, numbness tingling Allergies Allergy/AdvReac Type Severity Reaction Status Date / Time Sulfa (Sulfonamide Allergy Mild rash Verified 02/25/19 17:23 Antibiotics) alcohol Allergy Unknown Recovering Verified 02/25/19 17:23 Alcoholic Opioids - Morphine Analogues AdvReac Unknown HISTORY OF Verified 02/25/19 17:23 ADDICTION Home Medications Home Medications Medication Instructions Recorded Confirmed Type Incruse Ellipta 1 inh INHALATION QAM 04/11/18 03/18/19 History aspirin [Aspir-81] 81 mg PO QAM 04/11/18 03/18/19 History Breo Ellipta 1 inh INHALATION QAM 10/09/18 03/18/19 History divalproex 1,000 mg PO QAM 10/09/18 03/18/19 History divalproex 1,250 mg PO QPM 10/09/18 03/18/19 History furosemide 40 mg PO BIDM 10/09/18 03/18/19 History metoprolol succinate 25 mg PO QDD 10/09/18 03/18/19 History potassium chloride [Klor-Con M10] 10 meq PO TIDM 10/09/18 03/18/19 History warfarin [Coumadin] 5 mg PO QDD 10/09/18 03/18/19 History diazepam [Diastat] 5 mg CA Q12H PRN #7 ea 10/11/18 03/18/19 Rx levetiracetam 250 mg PO DAILY 02/25/19 03/18/19 History pantoprazole 40 mg PO DAILY 30 Days #30 tab 02/27/19 03/18/19 Rx acetaminophen 325 mg PO Q6H PRN 03/18/19 03/18/19 History lorazepam [Ativan] 1 mg BUCCAL UD PRN 03/18/19 03/18/19 History Patient History Medical History History of DVT (deep vein thrombosis) (Chronic) Hematoma of right thigh (Resolved) Non-ischemic cardiomyopathy (Chronic) Obesity (BMI 30.0-34.9) (Chronic) meterman current use of anticoagulants with INR goal of 2.0-3.0 (Chronic) Vasogenic edema (Resolved) AVM (arteriovenous malformation) brain (Chronic) Seizures (Chronic) AA (alcohol abuse) (Resolved) COPD (chronic obstructive pulmonary disease) (Chronic) Surgical History History of appendectomy (Chronic) History of cataract surgery (Chronic) Family History Mother Stroke Heart disease Social History Preferred Language: Macedonian Communication Ability: Impaired Visual Impairment: No Limitations Medical Sales Required: No Beliefs That Will Affect Care: None marital status: Current Living Situation: Spouse Current Living Situation Comment: [facility] current occupational status: retired Other Information That Helps Us Care for You: No Feels Safe at Home: Yes Safety Concerns: Feels Safe At This Time Smoking Status: Former smoker Tobacco Type: cigarettes ; Cigarettes Per Day: 40 ; Do You Dip or Chew Tobacco: No ; Second Hand Exposure: No ; Tobacco Cessation Education Requested by Patient: No Hx Alcohol Use: No Hx Substance Use: No Physical Exam Physical Exam: Physical Exam: Constitutional: appearance nourished, ill appearing, O2 NC 2L Ears, Nose, Mouth and Throat: mucous membranes moist, no injection and skin normal, eyes normal Cardiovascular: normal S-1 and S-2 and regular rate and rhythm Respiratory: course breath sounds Musculoskeletal: no peripheral edema and good distal pulses Skin: no stigmata of neurocutaneous disease noted and normal and intact Eyes: extraocular muscles intact (EOMI) and pupils equal, round and reactive to light (PERRL) NEUROLOGIC EXAMINATION: Mental status: Alert and interactive Oriented to person Speech dysphasia, unable to find words Cranial Nerves flattening nasolabial fold on right Sensory: intact to light and cool touch Coordination: unable to lift right arm Gait/Stance: Posture sitting up in bed Strength: right hand biceps triceps 3/5, left 4+/5, right cogwheeling and tremor with extension Right LE hip flex 2/5, patellar drive 4/5 bilaterally Results & Data Vital Signs (Past 12 Hours) Vital Signs Temp Pulse Pulse Resp BP Pulse Ox 03/19/19 11:32 36.4 C L 76 18 95/60 L 93 03/19/19 07:33 36.4 C L 75 19 95/60 L 94 03/19/19 07:27 56 L 03/19/19 03:45 36.4 C L 69 18 103/69 94 Laboratory Results Abnormal lab results 03/18/19 03/18/19 03/18/19 Range/Units 18:30 19:07 19:07 WBC (4.8-10.8) K/uL RBC 3.37 L (4.2-5.4) M/uL Hgb 10.8 L (12.0-16.0) g/dL Hct 32.7 L (37-47) % RDW Std Deviation 53.9 H (36.4-46.3) fL RDW Coeff of [place] 15.2 H (11.5-14.5) % Plt Count 95 L (130-400) K/uL Immature Gran # (Auto) 0.06 H (0.00-0.02) K/uL [place] # (Auto) 0.86 H (0.11-0.59) K/uL PT 28.9 H (9.0-12.0) Seconds INR 3.1 H (0.9-1.1) APTT (21.0-31.0) Seconds Carbon Dioxide (21-32) mmol/L BUN (7-18) mg/dl Creatinine (0.6-1.2) mg/dl BUN/Creatinine Ratio (10-20) Glucose (70-99) mg/dl POC Glucose (70-99) AST (15-37) U/L Ammonia (11-32) umol/L Total Protein (6.4-8.2) gm/dl Albumin (3.4-5.0) gm/dl Albumin/Globulin Ratio (0.9-2) Urine pH 8.0 H (4.5-7.5) Valproic Acid (50-100) mcg/ml 03/18/19 03/18/19 03/19/19 Range/Units 19:07 19:07 06:03 WBC (4.8-10.8) K/uL RBC (4.2-5.4) M/uL Hgb (12.0-16.0) g/dL Hct (37-47) % RDW Std Deviation (36.4-46.3) fL RDW Coeff of [place] (11.5-14.5) % Plt Count (130-400) K/uL Immature Gran # (Auto) (0.00-0.02) K/uL [place] # (Auto) (0.11-0.59) K/uL PT (9.0-12.0) Seconds INR (0.9-1.1) APTT (21.0-31.0) Seconds Carbon Dioxide 36 H 35 H (21-32) mmol/L BUN 26 H 24 H (7-18) mg/dl Creatinine 1.35 H (0.6-1.2) mg/dl BUN/Creatinine Ratio 23.1 H (10-20) Glucose 115 H 122 H (70-99) mg/dl POC Glucose (70-99) AST 40 H (15-37) U/L Ammonia (11-32) umol/L Total Protein 6.0 L (6.4-8.2) gm/dl Albumin 2.5 L (3.4-5.0) gm/dl Albumin/Globulin Ratio 0.7 L (0.9-2) Urine pH (4.5-7.5) Valproic Acid 122 H (50-100) mcg/ml 03/19/19 03/19/19 03/19/19 Range/Units 06:03 06:03 06:03 WBC 4.28 L (4.8-10.8) K/uL RBC 3.07 L (4.2-5.4) M/uL Hgb 9.7 L (12.0-16.0) g/dL Hct 29.6 L (37-47) % RDW Std Deviation 52.9 H (36.4-46.3) fL RDW Coeff of [place]mer 15.2 H (11.5-14.5) % Plt Count 81 L (130-400) K/uL Immature Gran # (Auto) 0.08 H (0.00-0.02) K/uL [place] # (Auto) (0.11-0.59) K/uL PT 32.5 H (9.0-12.0) Seconds INR 3.5 H (0.9-1.1) APTT 48.8 H* (21.0-31.0) Seconds Carbon Dioxide (21-32) mmol/L BUN (7-18) mg/dl Creatinine (0.6-1.2) mg/dl BUN/Creatinine Ratio (10-20) Glucose (70-99) mg/dl POC Glucose (70-99) AST (15-37) U/L Ammonia < 10.0 L (11-32) umol/L Total Protein (6.4-8.2) gm/dl Albumin (3.4-5.0) gm/dl Albumin/Globulin Ratio (0.9-2) Urine pH (4.5-7.5) Valproic Acid (50-100) mcg/ml 03/19/19 03/19/19 Range/Units 07:34 11:28 WBC (4.8-10.8) K/uL RBC (4.2-5.4) M/uL Hgb (12.0-16.0) g/dL Hct (37-47) % RDW Std Deviation (36.4-46.3) fL RDW Coeff of Delmer (11.5-14.5) % Plt Count (130-400) K/uL Immature Gran # (Auto) (0.00-0.02) K/uL [place] # (Auto) (0.11-0.59) K/uL PT (9.0-12.0) Seconds INR (0.9-1.1) APTT (21.0-31.0) Seconds Carbon Dioxide (21-32) mmol/L BUN (7-18) mg/dl Creatinine (0.6-1.2) mg/dl BUN/Creatinine Ratio (10-20) Glucose (70-99) mg/dl POC Glucose 133 H 144 H (70-99) AST (15-37) U/L Ammonia (11-32) umol/L Total Protein (6.4-8.2) gm/dl Albumin (3.4-5.0) gm/dl Albumin/Globulin Ratio (0.9-2) Urine pH (4.5-7.5) Valproic Acid (50-100) mcg/ml Diagnostic Findings CXR- Persistent focal infiltrate in the right mid lung, which could relate to resolving pneumonia. No new superimposed infiltrate since the prior chest CT. Bibasilar opacities greatest on the left possibly extensive atelectasis. Left pleural effusion may be present. Low lung volumes. Suspected underlying emphysema. Cardiomegaly with volume overload. No nicole pulmonary edema. CT head- Increased vasogenic edema surrounding the left frontal vertex mass, consistent with the known arteriovenous malformation. No nicole hemorrhage is evident.
[2019-03-19] MEDS ORDERED: LACOSAMIDE 50 MG TABLET PO STA (16:26)
[2019-03-19] MEDS: METOPROLOL SUCC 25MG EXT REL TAB PO SCH (17:06)
--- NOTE | 2019-03-19 18:08 | Hospitalist Progress Note ---
Date of Service March 19, 2019 Assessment & Plan (1) Breakthrough seizure: Cerebral vasogenic edema on CT H/O Cerebral AVM status post radiotherapy CT Head:Increased vasogenic edema surrounding the left frontal vertex mass, consistent with the known arteriovenous malformation. No nicole hemorrhage is evident. Patient refused MRI of brain on multiple occasions due to Claustrophobia Breakthrough Seizure likely due to Vasogenic edema, Lowered seizure threshold secondary to Cipro use for for possible UTI; exhaustion from PT session POA could be contributing EEG pending Keppra discontinued Started on Vimpat as per neurology Continue Depakote Depakote levels within normal limits Continue neuro checks, seizure precautions, fall precautions Continue steroids for vasogenic edema IVONNE Cr:1.35>>>1.05 Received IV fluids Monitor renal function Avoid Nephrotoxic agents as able Chronic respiratory failure Secondary to COPD On chronic home Oxygen No signs of exacerbation Continue home inhalers H/O PVD Past tobacco/alcohol abuse Continue aspirin Chronic anemia Chronic thrombocytopenia Hb at baseline Monitor CBC H/O DVT INR supratherapeutic Hold coumadin for now INR:3.5 DVT Px: INR supratherapeutic Hold Coumadin for now Code Status DNI/DNR Disposition To be determined Subjective Patient is seen and examined at bedside Very sleepy/drowsy this morning Has Aphasia Chronic right sided weakness after seizure episode as per family at bedside No known history of chest pain, SOB, recent fever on Steroids for Vasogenic edema Review of Systems Review of Systems: Unobtainable due to reduced consciousness Physical Exam Physical Exam: Physical Exam: Vitals signs as noted above General Appearance:Moderately built and nourished, no apparent distress, drowsy this morning Head: normocephalic, Atraumatic, aphasia Eyes: normal inspection Neck: supple, Trachea midline Respiratory/Chest: Normal breath sounds, CTA Cardiovascular: S1, S2, No murmur Abdomen/GI:Soft, Non tender, Bowel sounds present Extremities/Musculoskelatal:normal inspection, no edema Neurologic/Psych:grossly no focal neurological deficits, aphasia, Myoclonic Jerks Skin: normal color, warm Results & Data Vital Signs (Past 12 Hours) Vital Signs Temp Pulse Pulse Resp BP Pulse Ox 03/19/19 16:00 90 03/19/19 15:51 63 03/19/19 15:46 36.6 C 77 18 110/63 90 03/19/19 11:32 36.4 C L 76 18 95/60 L 93 03/19/19 07:33 36.4 C L 75 19 95/60 L 94 03/19/19 07:27 56 L Laboratory Results Short CBC 03/18/19 03/19/19 Range/Units 19:07 06:03 WBC 5.07 4.28 L (4.8-10.8) K/uL Hgb 10.8 L 9.7 L (12.0-16.0) g/dL Hct 32.7 L 29.6 L (37-47) % Plt Count 95 L 81 L (130-400) K/uL BMP 03/18/19 03/19/19 19:07 06:03 Sodium 140 142 Potassium 3.5 4.4 D Chloride 98 103 Carbon Dioxide 36 H 35 H BUN 26 H 24 H Creatinine 1.35 H 1.05 Glucose 115 H 122 H Calcium 8.7 9.0 Liver Function 03/18/19 Range/Units 19:07 Total Bilirubin 0.3 (0.2-1) mg/dl AST 40 H (15-37) U/L ALT 19 (12-78) U/L Alkaline Phosphatase 77 (45-117) U/L Albumin 2.5 L (3.4-5.0) gm/dl Urine 03/18/19 Range/Units 18:30 Urine Color Yellow Urine Appearance Clear (Clear) Urine pH 8.0 H (4.5-7.5) Ur Specific [place] 1.010 (1.000-1.030) Urine Protein Negative (Negative) Urine Glucose (UA) Negative (Negative)
[2019-03-19] MEDS ORDERED: LACOSAMIDE 50 MG TABLET PO SCH (20:00)
[2019-03-19] MEDS ORDERED: DIVALPROEX EXTENDED RELEASE 250 MG TABCR PO SCH ×2 (20:00→21:00)
[2019-03-20] MEDS ORDERED: INSULIN GLARGINE SOLOSTAR 100 UNITS/ML 3 ML PEN SQ STA (05:25)
[2019-03-20] MEDS: DEXAMETHASONE SOD PHOSPHATE 4 MG in SYRINGE 0 ML IV SCH ×3 (06:04→12:20)
[2019-03-20 07:25] LABS: Hematocrit (blood only) 35.4 % (37-47); Hemoglobin 11.7 g/dL (12.0-16.0); Mean Corpuscular Hemoglobin 31.9 pg (25-34); Mean Corpuscular Hgb Conc 33.1 g/dL (32-36); Mean Corpuscular Volume 96.5 fL (80-100); Mean Platelet Volume 8.5 fL (7.4-10.4); Platelet Count 108 K/uL (130-400); RDW Coefficient of Variation 15.1 % (11.5-14.5); RDW Standard Deviation 53.4 fL (36.4-46.3); Red Blood Count 3.67 M/uL (4.2-5.4)
[2019-03-20 07:34] LABS: INR 3.5 (0.9-1.1); Prothrombin Time 32.5 Seconds (9.0-12.0)
[2019-03-20] MEDS ORDERED: levETIRAcetam 250 MG TAB PO SCH (08:00)
[2019-03-20] MEDS ORDERED: LACOSAMIDE 50 MG TABLET PO SCH (08:00)
[2019-03-20 08:03] LABS: BUN Creatinine Ratio 27.8 (10-20); Calcium 9.7 mg/dl (8.5-10.1); Creatinine Clr Calc Pharmacy 45.1 ml/min; Est GFR (African American) 61.4; Magnesium 2.3 mg/dl (1.8-2.4); Potassium 4.1 mmol/L (3.5-5.1)
[2019-03-20] MEDS: PANTOprazole 40 MG TAB PO SCH (08:04)
[2019-03-20] MEDS: ASPIRIN 81 MG ECTAB PO SCH (08:04)
[2019-03-20] MEDS: FLUTICASONE/VILANTEROL INHALER INH SCH (08:05)
[2019-03-20] MEDS: DIVALPROEX EXTENDED RELEASE 500 MG TAB PO SCH (08:05)
[2019-03-20] MEDS: UMECLIDINIUM BROMIDE INH SCH (08:07)
[2019-03-20] MEDS: INSULIN ASPART 100 UNITS/ML 3 ML PEN SC SCH ×4 (09:21→20:39)
--- NOTE | 2019-03-20 09:48 | Ultrasound Report ---
BILATERAL LOWER EXTREMITY VENOUS DOPPLER CLINICAL HISTORY: rule out DVT COMPARISON STUDY: Bilateral lower extremity venous Doppler ultrasound July 31, 2018. TECHNIQUE: Sonography of the deep venous system of the bilateral lower extremities was performed. Co mpression and augmentation were evaluated. FINDINGS: The bilateral common femoral, superficial femoral and popliteal veins were compressible. A ugmentation was normal. Flow was shown within the deep calf vessels. Note is made of stranding within the left greater saphenous vein which represents chronic thrombus which was shown exam of July 072018 IMPRESSION: 1. No evidence of deep venous thrombus within the bilateral lower extremities. 2. Minimal chronic thrombus within the left greater saphenous vein which was shown on ultrasound of [facility] 2018. Electronically signed by: Shin Larose M.D. 03/20/2019 9:47 AM
--- NOTE | 2019-03-20 11:36 | Hospitalist Progress Note ---
Date of Service March 20, 2019 Assessment & Plan (1) Breakthrough seizure: -Breakthrough Seizure likely due to Vasogenic edema -urinary tract infection is ruled out -on this admission, patient's home dose Keppra was replaced with Vimpat (lacosamide) -continue Vimpat (lacosamide) for now as maintenance 100 mg BID -Continue Depakote as 1000 and 1250 mg qhs -neuro checks, seizure precautions, fall precautions -follow EEG -Continue steroids dexamethasone of 4 mg IV q6 hours for vasogenic edema -PT/OT evaluations -check blood culture, creatinine kinase, lactic acid, ammonia level, TSH, prolactin (2) Vasogenic edema: -History of Cerebral arteriovenous malformation -History of radiotherapy -admission CT scan: Increased vasogenic edema surrounding the left frontal vertex mass, consistent with the known arteriovenous malformation. No nicole he morrhage is evident -management as above Acute Kidney Injury -admission creatinine 1.35 -acute kidney injury resolved after IV fluids Chronic respiratory failure -Secondary to COPD -On chronic home Oxygen -No signs of exacerbation -Continue home inhalers History of Peripheral Vascular Disease -Continue aspirin History of Deep Vein Thrombosis in the past Supratherapeutic INR -03/20/19 lower extremity ultrasound: No evidence of deep venous thrombus within the bilateral lower extremities. Minimal chronic thrombus within the left greater saphenous vein which was shown on ultrasound of July 31, 2018. -SCDs can be applied to right leg for DVT prophylasix -hold coumadin because of supratherapeutic INR of 3.5 Chronic anemia Chronic thrombocytopenia -stable hemoglobin and platelets for now Code Status DNI/DNR Subjective Patient seen and examined with at bedside. Patient is awake. She is nonverbal. She is able to follow directions. She generally follows directions with the eyes closed. When asked to open her eyes, she has tremors of the eyelids. Patient also has tremors of upper extremities which patient's reports to be chronic. Patient's legs are on pillows. Patient does not move her legs when asked. As per nurse, an EEG was performed this AM and patient had been able to take oral medications Physical Exam Neck: normal visual inspection Respiratory: normal respiratory effort, lungs clear to auscultation Cardiovascular: Rate/Rhythm: regular rate and regular rhythm Gastrointestinal (Abdomen): normal bowel sounds, soft, nontender, no h epatosplenomegaly Musculoskeletal: Head/Neck/Chest: normocephalic and head atraumatic Neurologic: Patient is awake. She is nonverbal. She is able to follow directions. She generally follows directions with the eyes closed. When asked to open her eyes, she has tremors of the eyelids. Patient also has tremors of upper extremities which patient's reports to be chronic. Patient's legs are on pillows. Patient does not move her legs when asked Results & Data Vital Signs (Past 12 Hours) Vital Signs Temp Pulse Pulse Resp BP BP Pulse Ox 03/20/19 11:19 36.4 C L 90 16 114/63 97 03/20/19 07:45 64 03/20/19 07:15 36.6 C 99 H 20 154/86 H 97 03/20/19 03:00 36.4 C L 71 20 144/78 H 97 03/19/19 23:40 121/79
[2019-03-20 12:54] LABS: Thyroid Stimulating Hormone 0.992 uIu/ml (0.300-4.500)
--- NOTE | 2019-03-20 14:29 | Electroencephalogram ---
EEG Procedure Note Date of Service March 20, 2019 Start / End Times Start Time: 10:25 End Time: 10:[address] 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 EEG performed for evaluation of seizures. Home Medication List Home Medications Medication Instructions Recorded Confirmed Type Incruse Ellipta 1 inh INHALATION QAM 04/11/18 03/18/19 History aspirin [Aspir-81] 81 mg PO QAM 04/11/18 03/18/19 History Breo Ellipta 1 inh INHALATION QAM 10/09/18 03/18/19 History divalproex 1,000 mg PO QAM 10/09/18 03/18/19 History divalproex 1,250 mg PO QPM 10/09/18 03/18/19 History furosemide 40 mg PO BIDM 10/09/18 03/18/19 History metoprolol succinate 25 mg PO QDD 10/09/18 03/18/19 History potassium chloride [Klor-Con M10] 10 meq PO TIDM 10/09/18 03/18/19 History warfarin [Coumadin] 5 mg PO QDD 10/09/18 03/18/19 History diazepam [Diastat] 5 mg TX Q12H PRN #7 ea 10/11/18 03/18/19 Rx levetiracetam 250 mg PO DAILY 02/25/19 03/18/19 History pantoprazole 40 mg PO DAILY 30 Days #30 tab 02/27/19 03/18/19 Rx acetaminophen 325 mg PO Q6H PRN 03/18/19 03/18/19 History lorazepam [Ativan] 1 mg BUCCAL UD PRN 03/18/19 03/18/19 History Inpatient Medication List Aspirin (Ecotrin Ectab) 81 mg PO QAM [facility] Stop: 04/18/19 08:59 Last Admin: 03/20/19 08:04 Dose: 81 mg Documented by: [id number] Admin: 03/19/19 07:59 Dose: 81 mg Documented by: [id number] Divalproex Sodium (Depakote Extended Release) 1,000 mg PO DAILY@08 MILY Stop: 04/19/19 07:59 Last Admin: 03/20/19 08:05 Dose: 1,000 mg Documented by: [id number] Divalproex Sodium (Depakote Extended Release) 1,000 mg PO DAILY@2000 [facility] Stop: 04/18/19 19:59 Last Admin: 03/19/19 20:04 Dose: 1,000 mg Documented by: [id number] Divalproex Sodium (Depakote Extended Release) 250 mg PO DAILY@20 MILY Stop: 04/18/19 19:59 Last Admin: 03/19/19 20:04 Dose: 250 mg Documented by: [id number] Fluticasone/Vilanterol (Breo Ellipta) 1 puffs INH DAILY MILY Stop: 04/18/19 08:59 Last Admin: 03/20/19 08:05 Dose: 1 puffs Documented by: [id number] Admin: 03/19/19 08:47 Dose: 1 puffs Documented by: [id number] Dexamethasone Sodium Phosphate (4 mg/ Syringe) 1 mls @ 1 mls/min IV Q6H MILY Stop: 04/18/19 05:59 Last Admin: 03/20/19 12:20 Dose: 1 mls/min Documented by: [id number] Admin: 03/20/19 06:04 Dose: 1 mls/min Documented by: [id number] Admin: 03/20/19 00:00 Dose: 1 mls/min Documented by: [id number] Admin: 03/19/19 18:46 Dose: 1 mls/min Documented by: [id number] Admin: 03/19/19 11:28 Dose: 1 mls/min Documented by: [id number] Admin: 03/19/19 05:54 Dose: 1 mls/min Documented by: [id number] Insulin Aspart (Novolog Flexpen) 0 units SC ACHS MILY Stop: 04/18/19 01:14 Last Admin: 03/20/19 12:25 Dose: Not Given Documented by: [id number] Cosigned by: [id number] Admin: 03/20/19 09:21 Dose: Not Given Documented by: [id number] Cosigned by: [id number] Admin: 03/19/19 20:47 Dose: Not Given Documented by: [id number] Cosigned by: [id number] Admin: 03/19/19 17:10 Dose: Not Given Documented by: [id number] Cosigned by: [id number] Admin: 03/19/19 11:50 Dose: Not Given Documented by: [id number] Cosigned by: [id number] Admin: 03/19/19 08:15 Dose: Not Given Documented by: [id number] Cosigned by: [id number] Admin: 03/19/19 01:44 Dose: Not Given Documented by: [id number] Cosigned by: [id number] Lacosamide (Vimpat) 100 mg PO DAILY@20 [facility] Stop: 04/18/19 19:59 Last Admin: 03/19/19 20:05 Dose: 100 mg Documented by: [id number] Lacosamide (Vimpat) 100 mg PO DAILY@08 MILY Stop: 04/19/19 07:59 Last Admin: 03/20/19 08:06 Dose: 100 mg Documented by: [id number] Metoprolol Succinate (Toprol Xl) 25 mg PO QDD MILY Stop: 04/18/19 16:29 Last Admin: 03/19/19 17:06 Dose: 25 mg Documented by: [id number] Pantoprazole Sodium (Protonix) 40 mg PO DAILY [facility] Stop: 04/18/19 08:59 Last Admin: 03/20/19 08:04 Dose: 40 mg Documented by: [id number] Admin: 03/19/19 07:59 Dose: 40 mg Documented by: [id number] Umeclidinium [place] (Incruse Ellipta) 1 ea INH DAILY MILY Stop: 04/18/19 08:59 Last Admin: 03/20/19 08:07 Dose: 1 ea Documented by: [id number] Admin: 03/19/19 08:47 Dose: 1 ea Documented by: [id number] Discontinued Medications Dexamethasone Sodium Phosphate (Decadron Pf) Confirm Administered Dose 10 mg .ROUTE .STK-MED ONE Stop: 03/19/19 00:18 Last Admin: 03/19/19 00:20 Dose: 10 mg Documented by: [id number] Divalproex Sodium (Depakote Extended Release) 1,000 mg PO QAM MILY Stop: 04/18/19 08:59 Last Admin: 03/19/19 07:59 Dose: 1,000 mg Documented by: [id number] Sodium Chloride (Nss 1000ml) 1,000 mls @ 999 mls/hr IV .Q1H1M ONE Stop: 03/18/19 19:32 Last Infusion: 03/18/19 20:46 Dose: 0 mls/hr Documented by: [id number] Admin: 03/18/19 19:11 Dose: 999 mls/hr Documented by: [id number] Lorazepam (Ativan) 1 mg in 2 mls @ 2 mls/min IV NOW STA Stop: 03/18/19 18:45 Last Admin: 03/18/19 18:49 Dose: 2 mls/min Documented by: [id number] Levetiracetam 1,500 mg/ (Dextrose) 115 mls @ 440 mls/hr IV NOW STA Stop: 03/18/19 19:00 Last Infusion: 03/18/19 20:46 Dose: 0 mls/hr Documented by: [id number] Admin: 03/18/19 19:10 Dose: 440 mls/hr Documented by: [id number] Dexamethasone Sodium Phosphate (10 mg/ Syringe) 2.5 mls @ 1 mls/min IV NOW STA Stop: 03/18/19 22:59 Last Admin: 03/19/19 00:20 Dose: Not Given Documented by: [id number] Lactated Ringer's (Lr) 1,000 mls @ 500 mls/hr IV .Q2H ONE Stop: 03/19/19 01:29 Last Infusion: 03/19/19 03:44 Dose: 0 mls/hr Documented by: [id number] Admin: 03/19/19 01:01 Dose: 500 mls/hr Documented by: [id number] Lactated Ringer's (Lr) 1,000 mls @ 80 mls/hr IV .[id number] ONE Stop: 03/19/19 14:29 Last Infusion: 03/19/19 07:13 Dose: 0 mls/hr Documented by: [id number] Admin: 03/19/19 02:49 Dose: 80 mls/hr Documented by: [id number] Insulin Glargine (Lantus Solostar Pen) 5 units SQ NOW STA Stop: 03/20/19 05:26 Last Admin: 03/20/19 06:04 Dose: 5 units Documented by: [id number] Cosigned by: [id number] Lacosamide (Vimpat) 200 mg PO NOW STA Stop: 03/19/19 16:27 Last Admin: 03/19/19 17:14 Dose: 200 mg Documented by: [id number] Levetiracetam (Keppra) 250 mg PO DAILY MILY Stop: 04/18/19 08:59 Last Admin: 03/19/19 07:59 Dose: 250 mg Documented by: [id number] Description This is a 21 electrode EEG with a single channel dedicated to limited EKG. The electrodes were placed in accordance with the International 10-20 system. REPORT: At the onset of the EEG the patient is in an altered mental state. No po sterior dominant rhythm is seen. Instead the background consist of diffuse 2-7 Hz theta delta activity with increase 2-3 Hz delta activity on the left, maximal in the parasaggital head region. Photic stimulation does not elicit any additional abnormalities. IMPRESSION: Abnormal EEG in a patient with altered mentation due to 1. Moderate to severe generalized background slowing suggestive of a moderate to severe non specific encephalopathy, 2. Focal slowing on the left suggestive of an underlying structural abnormality.
--- NOTE | 2019-03-20 14:54 | Neurology Progress Note ---
Date of Service March 20, 2019 Assessment & Plan (1) Breakthrough seizure: 1. underlying vasoedema- continue decadron 4 mg q6 hours 2. repeat CT head- tomorrow 3. keppra 500 mg 8a/1999 restarting at higher dose 4. depakote 1000 mg 8a and 1250 mg 2000 for now 5. seizure and fall precautions 6. PT/OT for discharge needs 7. at discharge will need a very slow taper and may need sustained dosing for several weeks 8. may consider switching depakote to Vimpat to help with tremor 9. INR- therapeutic DVT 2.0-3.0 monitor 10. UTI- no current infection 11. vimpat stopped due to possible drug reaction 12. EEG -no seizure focus generalize slowing 13. monitor closely like drug reaction to Vimpat - put on patients allergy list Supervising Physician Co-Signing Physician Notes Patient was seen and examined. Patient at [facility]. Reports she has baseline aphasia and speech difficulty with right sided weakness and states he weakness and speech usually improve after she has a seizure. based of she had a focal motor seizure with no LOC or GTC seizure. Yesterday Keppra was stopped and swicthed to Vimpat. Patient noted to have skin rash to today concerning for possible drug reaction. Speech remains impaired and right leg weakness greater than baseline. I discuss MRI but stated patient can not toleratae due to claustrophobia. On examine some movement in right leg with noxious stimuli. Intermittently following simple commands. Moving both arms. Tongue midline. Speech is clear but perseverates. Non fluent speech. I reviewed her EEG this afternoon. No seizures were noted. Diffuse slowing with increasing slowing on the left. - Will stop Vimpat due to possible drug reaction (skin rash). - Will restart Keppra at high dose, 500 mg BID. Previous on 250 mg BID - Continue current dose of Depakote - Recommend reducing dose of steroids to Decadron 4 mg BID PO Subjective Kathy is a 73 year old female with PMH - COPD, history of DVTs, stress-induced cardiomyopathy,01/2018 she sustained a fall with resultant CT of the head demonstrated incidental finding of AV malformation. She had a 1 time radiation in 04/2018 to the AVM and developed vasogenic edema, seizure /status epilepticus. Her Depakote level was increased to 1500 mg BID but she decreased after he level was supratherapeutic. She is now on 1000 mg am 1250 mg pm. She lives with her she took 2 doses of Cipro and had a very exhausting work out from the at home PT. She had a seizure and was given ativan and diastat suppository prior to EMS bring her to the ED. In the ER still she was a confused and drowsy, and her right side was still somewhat shaky. She was IV keppra 1g in the ED. A CT head was done and she was found to have increased vaso edema. She was then started on Decadron 4mg IV q 6 hours. She was unable to feed herself this am due to the increased tremor in her right hand due to the depakote. She is awake and more confused than yesterday. She currently has edema of the face and is warm to touch. Yesterday she was switched from keppra to vimpat in the hopes to decrease the depakote dose and eventually transition off. denies CP, SOB, abdominal pain, +one sided weakness, numbness tingling Physical Exam Physical Exam: Gen: alert confused lungs course breath sounds CV RRR not following commands on 02 2L Results & Data Vital Signs (Past 12 Hours) Vital Signs Temp Pulse Pulse Resp BP Pulse Ox 03/20/19 11:19 36.4 C L 90 16 114/63 97 03/20/19 07:45 64 03/20/19 07:15 36.6 C 99 H 20 154/86 H 97 03/20/19 03:00 36.4 C L 71 20 144/78 H 97 Laboratory Results Abnormal lab results 03/19/19 03/19/19 03/20/19 Range/Units 16:25 20:30 05:59 RBC (4.2-5.4) M/uL Hgb (12.0-16.0) g/dL Hct (37-47) % RDW Std Deviation (36.4-46.3) fL RDW Coeff of Delmer (11.5-14.5) % Plt Count (130-400) K/uL PT (9.0-12.0) Seconds INR (0.9-1.1) Carbon Dioxide (21-32) mmol/L BUN (7-18) mg/dl BUN/Creatinine Ratio (10-20) Glucose (70-99) mg/dl POC Glucose 138 H 149 H 115 H (70-99) 03/20/19 03/20/19 03/20/19 Range/Units 07:13 07:14 07:14 RBC 3.67 L (4.2-5.4) M/uL Hgb 11.7 L (12.0-16.0) g/dL Hct 35.4 L (37-47) % RDW Std Deviation 53.4 H (36.4-46.3) fL RDW Coeff of Delmer 15.1 H (11.5-14.5) % Plt Count 108 L (130-400) K/uL PT 32.5 H (9.0-12.0) Seconds INR 3.5 H (0.9-1.1) Carbon Dioxide 33 H (21-32) mmol/L BUN 29 H (7-18) mg/dl BUN/Creatinine Ratio 27.8 H (10-20) Glucose 115 H (70-99) mg/dl POC Glucose (70-99) Diagnostic Findings venous doppler study-No evidence of deep venous thrombus within the bilateral lower extremities. Minimal chronic thrombus within the left greater saphenous vein which was shown on ultrasound of July 31, 2018.
[2019-03-20] MEDS ORDERED: Nursing to Pharmacy Communication ONE (16:09)
[2019-03-20] MEDS: METOPROLOL SUCC 25MG EXT REL TAB PO SCH (18:05)
[2019-03-20] MEDS ORDERED: VALPROATE SOD 750 MG in DEXTROSE 5% 50 ML IV ONE (20:00)
[2019-03-20] MEDS ORDERED: dexAMETHasone 4 MG TAB PO ONE (20:00)
[2019-03-20] MEDS ORDERED: dexAMETHasone 4 MG TAB PO SCH (21:00)
[2019-03-21 06:15] LABS: Basophils # (auto) 0.01 K/uL (0-0.2); Basophils % (auto) 0.1 %; Hematocrit (blood only) 32.8 % (37-47); Hemoglobin 10.7 g/dL (12.0-16.0); Immature Granulocytes % (auto) 1.3 %; Lymphocytes # (auto) 1.84 K/uL (1.2-3.4); Lymphocytes % (auto) 24.1 %; Mean Corpuscular Hemoglobin 31.5 pg (25-34); Mean Corpuscular Hgb Conc 32.6 g/dL (32-36); Mean Corpuscular Volume 96.5 fL (80-100); Mean Platelet Volume 8.1 fL (7.4-10.4); Monocytes # (auto) 0.47 K/uL (0.11-0.59); Monocytes % (auto) 6.1 %; Neutrophils # (auto) 5.23 K/uL (1.4-6.5); Neutrophils % (auto) 68.4 %; Platelet Count 118 K/uL (130-400); RDW Coefficient of Variation 15.4 % (11.5-14.5); RDW Standard Deviation 54.5 fL (36.4-46.3); White Blood Count 7.65 K/uL (4.8-10.8)
[2019-03-21 06:26] LABS: Base Excess VBG 10.3 mEq/L; HCO3 VBG 35 mmol/L; PCO2 VBG 47 mmHg (38-50); PO2 VBG 31 mmHg; pH VBG 7.49 (7.36-7.41)
[2019-03-21 06:27] LABS: Oxygen Saturation VBG < 60.0 %
[2019-03-21 06:29] LABS: INR 2.7 (0.9-1.1); Prothrombin Time 25.8 Seconds (9.0-12.0)
[2019-03-21 06:55] LABS: Albumin Level 2.4 gm/dl (3.4-5.0); BUN Creatinine Ratio 32.4 (10-20); Calcium 8.7 mg/dl (8.5-10.1); Creatinine Clr Calc Pharmacy 47.8 ml/min; Est GFR (African American) 66.8; Est GFR (Non-African American) 57.6; Potassium 4.1 mmol/L (3.5-5.1)
[2019-03-21 06:57] LABS: Albumin Globulin Ratio 0.8 (0.9-2); Bilirubin,Total 0.3 mg/dl (0.2-1); Globulin 3.1 gm/dl (2.5-4.0); Total Protein 5.5 gm/dl (6.4-8.2)
--- NOTE | 2019-03-21 07:46 | Neurology Progress Note ---
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 Patient with baseline mixed aphasia. Recent EEG showed diffuse slowing with increased focal slowing on the left. CT head non contrast showed increased vasogenic edema on the left. Patient NOT able to tolerate MRI brain. - Continue Depakote 1250 mg QAM/ 1000 mg QHS. Recent trough level was 80. - Continue Keppra 500 mg BID. Discontinue Vimpat due to possible drug reaction (rash). - Continue Decadron 4 mg BID PO - PT/OT - Seizure precautions (2) Vasogenic edema: (3) Localization-related epilepsy: Subjective Patient was seen and examined. Physical Exam Physical Exam: EXAM: Constitutional: appears acute on chronically ill Head and Face: normocephalic and atraumatic Eyes: normal lids, normal conjunctiva Neck: supple Respiratory: normal effort Cardiovascular: normal pulses Abdomen: non distended Skin: Psychiatric: euthymic NEUROLOGIC EXAMINATION: Appearance: no acute distress Orientation: awake, oriented to person Mental Status: alert Memory: Poor Attention: decreased Knowledge: poor Language: non fluent, perseverates, following simple commands Speech: clear Cranial Nerves: CN 2 - no visual defect on confrontation and pupils round, equal CN 3, 4, 6 - extra-ocular movements intact CN 5 - facial sensation intact CN 7 - no facial asymmetry CN 8 - intact hearing CN 9, 10 - palate symmetric CN 11 - good shoulder shrug CN 12 - tongue midline Gait: deferred Coordination: tremulous, difficulty with finger to nose on the right due to weakness Sensory: intact to light touch Muscle Tone: normal Muscle exam: Moving all 4 extremities, left sided weakness chronic, moves left foot to noxious stimuli Results & Data Vital Signs (Past 12 Hours) Vital Signs Temp Pulse Pulse Resp BP Pulse Ox 03/21/19 07:00 36.4 C L 79 18 121/69 91 03/21/19 04:10 36.2 C L 68 19 109/69 98 03/21/19 01:47 60 03/20/19 23:04 36.4 C L 56 L 16 98/57 L 95 03/20/19 19:51 36.3 C L 55 L 18 116/81 97
[2019-03-21] MEDS: DIVALPROEX EXTENDED RELEASE 500 MG TAB PO SCH ×2 (08:08→19:55)
[2019-03-21] MEDS: UMECLIDINIUM BROMIDE INH SCH (08:18)
[2019-03-21] MEDS: FLUTICASONE/VILANTEROL INHALER INH SCH (08:19)
[2019-03-21] MEDS: INSULIN ASPART 100 UNITS/ML 3 ML PEN SC SCH ×4 (08:23→21:38)
[2019-03-21] MEDS: dexAMETHasone 4 MG TAB PO SCH ×2 (08:24→20:00)
[2019-03-21] MEDS: ASPIRIN 81 MG ECTAB PO SCH (08:24)
[2019-03-21] MEDS: PANTOprazole 40 MG TAB PO SCH (08:25)
[2019-03-21] MEDS: INSULIN GLARGINE SOLOSTAR 100 UNITS/ML 3 ML PEN SQ SCH (09:04)
--- NOTE | 2019-03-21 09:40 | Hospitalist Progress Note ---
Date of Service March 21, 2019 Assessment & Plan (1) Breakthrough seizure: Seizure disorder -Breakthrough Seizure likely due to Vasogenic edema -urinary tract infection is ruled out, normal levels of creatinine kinase, lactic acid, ammonia level, TSH, prolactin -EEG: Moderate to severe generalized background slowing suggestive of a moderate to severe non specific encephalopathy, Focal slowing on the left suggestive of an underlying structural abnormality. -on this admission, patient's home dose Keppra was replaced with Vimpat (lacosamide); but Vimpat was stopped by neurology on 03/20/19 because of concerns for drug reaction and patient was returned to Keppra as 500 mg BID starting on 03/20/19 -patient has been continued usual home dose of Depakote as 1000 and 1250 mg qhs; an IV equivalent of valproic acid was given on night of 03/20/19 because of concern that patient could not take orals at that time -initially patient was on dexamethasone of 4 mg IV q6 hours for vasogenic edema but this is transitioned to 4 mg PO BID as per neurology -continue the current oral Keppra and oral Depakote and oral dexamethasone as tolerated -neuro checks, seizure precautions, fall precautions -PT/OT evaluations -blood culture cultures from 03/20/19 are pending results (2) Vasogenic edema: -History of Cerebral arteriovenous malformation -History of radiotherapy -admission CT scan: Increased vasogenic edema surrounding the left frontal vertex mass, consistent with the known arteriovenous malformation. No nicole hemorrhage is evident -management with dexamethasone Acute Kidney Injury -admission creatinine 1.35 -acute kidney injury resolved after IV fluids on this admission Chronic respiratory failure -Secondary to COPD -On chronic home Oxygen -No signs of exacerbation -Continue home inhalers History of Peripheral Vascular Disease -Continue aspirin History of Deep Vein Thrombosis in the past Supratherapeutic INR (on 03/19/19 and 03/20/19, resolved as of 03/21/19) -03/20/19 lower extremity ultrasound: No evidence of deep venous thrombus within the bilateral lower extremities. Minimal chronic thrombus within the left greater saphenous vein which was shown on ultrasound of July 31, 2018. -SCDs can be applied to right leg for DVT prophylasix -couamdin can be restarted on 03/21/19 as INR 2.7 is no longer supratherapeutic Chronic anemia Chronic thrombocytopenia -stable hemoglobin and platelets for now Code Status DNI/DNR Subjective Patient is much more awake and alert this AM compared to the last 2 days. Patient sitting in wheelchair with at bedside. Patient is cooperative on exam. she denies acute pain. not in respiratory distress. is chronically on supplemental oxygen via nasal cannula. discussed with patient and patient's that goals today will be monitoring patient's mental status throughout today and see if she can consistently take meals and pills by mouth. Physical Exam Constitutional: comfortable Eyes: PERRL, conjunctivae normal, anicteric sclerae EOM intact bilaterally ENMT: external ear and nose normal, oropharynx normal Neck: normal visual inspection Respiratory: normal respiratory effort, lungs clear to auscultation Cardiovascular: Rate/Rhythm: regular rate and regular rhythm Gastrointestinal (Abdomen): normal bowel sounds, soft, nontender, no hepatosplenomegaly Musculoskeletal: Head/Neck/Chest: normocephalic and head atraumatic Neurologic: PERRL, EOMI, accommodation nl, no face palsy, no dysarthria Psychiatric: Orientation: alert and cooperative Results & Data Vital Signs (Past 12 Hours) Vital Signs Temp Pulse Pulse Resp BP Pulse Ox 03/21/19 07:00 36.4 C L 79 18 121/69 91 03/21/19 04:10 36.2 C L 68 19 109/69 98 03/21/19 01:47 60 03/20/19 23:04 36.4 C L 56 L 16 98/57 L 95
[2019-03-21] MEDS: METOPROLOL SUCC 25MG EXT REL TAB PO SCH (15:57)
[2019-03-21] MEDS: WARFARIN SOD 2.5 MG TAB PO SCH (16:00)
[2019-03-21] MEDS: DIVALPROEX EXTENDED RELEASE 250 MG TABCR PO SCH (19:56)
[2019-03-22 06:52] LABS: INR 1.9 (0.9-1.1); Prothrombin Time 18.3 Seconds (9.0-12.0)
[2019-03-22] MEDS: DIVALPROEX EXTENDED RELEASE 500 MG TAB PO SCH ×2 (07:44→20:03)
[2019-03-22] MEDS: ASPIRIN 81 MG ECTAB PO SCH (07:45)
[2019-03-22] MEDS: dexAMETHasone 4 MG TAB PO SCH ×2 (07:45→20:04)
[2019-03-22] MEDS: PANTOprazole 40 MG TAB PO SCH (07:45)
[2019-03-22] MEDS: FLUTICASONE/VILANTEROL INHALER INH SCH (07:46)
[2019-03-22] MEDS: UMECLIDINIUM BROMIDE INH SCH (07:46)
[2019-03-22] MEDS ORDERED: POLYETHYLENE (MIRALAX) 17 GM PACK PO STA (08:40)
[2019-03-22] MEDS ORDERED: POLYETHYLENE (MIRALAX) 17 GM PACK PO PRN (08:40)
[2019-03-22] MEDS ORDERED: FUROSEMIDE 20 MG in SYRINGE 0 ML IV ONE (08:45)
--- NOTE | 2019-03-22 08:55 | Hospitalist Progress Note ---
Date of Service March 22, 2019 Assessment & Plan (1) Breakthrough seizure: Seizure disorder -Breakthrough Seizure likely due to Vasogenic edema -neuro checks, seizure precautions, fall precautions while inpatient -urinary tract infection is ruled out, normal levels of creatinine kinase, la ctic acid, ammonia level, TSH, prolactin -blood culture cultures from 03/20/19 no growth -EEG: Moderate to severe generalized background slowing suggestive of a moderate to severe non specific encephalopathy, Focal slowing on the left suggestive of an underlying structural abnormality. -on this admission, patient's home dose Keppra was replaced with Vimpat (lacosamide); but Vimpat was stopped by neurology on 03/20/19 because of concerns for drug reaction and patient was returned to Keppra as 500 mg BID starting on 03/20/19 -patient has been continued usual home dose of Depakote as 1000 and 1250 mg qhs; an IV equivalent of valproic acid was given on night of 03/20/19 because of concern that patient could not take orals at that time -initially patient was on dexamethasone of 4 mg IV q6 hours for vasogenic edema but this is transitioned to 4 mg PO BID as per neurology by 03/21/19 -continue the current oral Keppra as 500 mg BID and oral Depakote 1000 mg daily with 1250 mg qhs and oral dexamethasone 4 mg PO BID -Patient has followup appointments with 04/26/2019 8:00 AM Provider Claudio Connell DO Department Neurology [facility] -duration of dexamethasone treatment is unclear at this time and will need neurology consultation input (2) Vasogenic edema: -History of Cerebral arteriovenous malformation -History of radiation for the AVM in January 2019 which appears to have subsequently led to vasogenic edema and seizure disorders -admission CT scan: Increased vasogenic edema surrounding the left frontal vertex mass, consistent with the known arteriovenous malformation. No nicole hemorrhage is evident -management with dexamethasone -IV lasix 20 mg x 1 ordered on 03/22/19 to prevent fluid accumulation from ster oids Acute Kidney Injury -admission creatinine 1.35 -acute kidney injury resolved after IV fluids on this admission Chronic respiratory failure -Secondary to COPD -On chronic home Oxygen -No signs of exacerbation -Continue home inhalers History of Peripheral Vascular Disease -Continue aspirin History of Deep Vein Thrombosis in the past Supratherapeutic INR (on 03/19/19 and 03/20/19, resolved as of 03/21/19) -03/20/19 lower extremity ultrasound: No evidence of deep venous thrombus within the bilateral lower extremities. Minimal chronic thrombus within the left greater saphenous vein which was shown on ultrasound of July 31, 2018. -SCDs can be applied to right leg for DVT prophylasix -coumadin restarted on 03/21/19 as INR 2.7 is no longer supratherapeutic -continue coumadin for DVT prophylaxis Chronic anemia Chronic thrombocytopenia -stable hemoglobin and platelets Ambulatory dysfunction -She can lift her legs on the bed a little bit. Patient's house has 5 steps. patient and patient's preference is to go home when medically ready. However, given patient's chronic mobility issues, they are willing to have director case see them again to see if any additional home health services needed versus application for physical therapy center after hospital stay Code Status DNI/DNR Subjective Patient seen and examined at bedside with her . She is awake and alert and cooperative on exam. She was able to eat breakfast on her own this AM. She appears to be at mental baseline but her cautioned that she is not quite 100 percent. Patient answers all questions appropriately. Patient on chronic nasal cannula. No acute shortness of breath. denies pain anywhere of the body. no dizziness. no lightheadedness. no vomiting. we discussed patient's physical limitations. Yesterday she was seen on wheelchair. She can lift her legs on the bed a little bit. Patient's house has 5 steps. patient and patient's preference is to go home when medically ready. However, given patient's chronic mobility issues, they are willing to have director case see them again to see if any additional home health services needed versus application for physical therapy center after hospital stay. Physical Exam Constitutional: comfortable Eyes: PERRL, conjunctivae normal, anicteric sclerae EOM intact bilaterally ENMT: external ear and nose normal, oropharynx normal Neck: normal visual inspection Respiratory: normal respiratory effort, lungs clear to auscultation Cardiovascular: Rate/Rhythm: regular rate and regular rhythm Gastrointestinal (Abdomen): normal bowel sounds, soft, nontender, no hepatosplenomegaly Musculoskeletal: Head/Neck/Chest: normocephalic and head atraumatic Neurologic: PERRL, EOMI, accommodation nl, no face palsy, no dysarthria Psychiatric: Orientation: alert and cooperative Results & Data Vital Signs (Past 12 Hours) Vital Signs Temp Pulse Pulse Resp BP Pulse Ox 03/22/19 07:00 36.5 C 58 L 18 114/75 98 03/22/19 04:03 36.3 C L 66 18 121/70 94 03/22/19 01:40 54 L 03/21/19 22:55 36.8 C 54 L 20 105/71 99
[2019-03-22] MEDS: INSULIN ASPART 100 UNITS/ML 3 ML PEN SC SCH ×4 (08:58→21:28)
[2019-03-22] MEDS: INSULIN GLARGINE SOLOSTAR 100 UNITS/ML 3 ML PEN SQ SCH (08:58)
[2019-03-22] MEDS: SENNA 8.6 MG TAB PO SCH (09:41)
--- NOTE | 2019-03-22 14:27 | Neurology Progress Note ---
Date of Service March 22, 2019 Assessment & Plan (1) Breakthrough seizure: 1. underlying vasoedema- continue decadron 4 mg BID will need a plan for taper after CT head and results 2. repeat CT head- ordered 3. keppra 500 mg 8a/2000 continue 4. depakote 1000 mg 8a and 1250 mg 2000 for now 5. seizure and fall precautions 6. PT/OT for discharge needs 7. at discharge will need a very slow taper and may need sustained dosing for several weeks 8. if tolerates Keppra would like to get to therapeutic dose and cut back on Depakote 9. INR- therapeutic DVT 2.0-3.0 monitor 10. UTI- no current infection 11. vimpat stopped due to possible drug reaction- placed on allergy list. 12. EEG -no seizure focus generalize slowing 13. would refer to radiation oncology for recommendations for alternatives to steroid treatment for vaso edema 13. PT/OT for discharge needs of rehab prior to return home. (2) Vasogenic edema: (3) Localization-related epilepsy: Supervising Physician Co-Signing Physician Notes I have seen and discussed above patient with Dr Karena Lovell, neurology. Pt seen and examined. 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 Pt admitted with recurrent sz, as has been the case when presumed radiation necrosis has increased. Pt today improved from what was in part post-ictal Anthony's paralysis. Exam notable for flat affect, mild r central facial weakness and mild R hemiparesis. Imp breakthrough sz, allergy to vimpat. Trying to attempt a mid-dose of depakote and keppra. Re pos radiation necrosis would recom MRI brain with and without with conscious sedation with anesthesia. Pt is currently not agreeable. Radiation onc consult re tx from radionecrosis.CT head to eval edema and guide steroid taper. Will follow with you. SONIA Lovell MD Ani Chavez is a 73 year old female with PMH - COPD, history of DVTs, stress-induced cardiomyopathy,01/2018 she sustained a fall with resultant CT of the head demonstrated incidental finding of AV malformation. She had a 1 time radiation in 04/2018 to the AVM and developed vasogenic edema, seizure /status epilepticus. Her Depakote level was increased to 1500 mg BID but she decreased after he level was supratherapeutic. She is now on 1000 mg am 1250 mg pm. She lives with her she took 2 doses of Cipro and had a very exhausting work out from the at home PT. She had a seizure and was given ativan and diastat suppository prior to EMS bring her to the ED. In the ER still she was a confused and drowsy, and her right side was still somewhat shaky. She was IV keppra 1g in the ED. A CT head was done and she was found to have increased vaso edema. She was then started on Decadron 4mg IV q 6 hours. She was unable to feed herself this am due to the increased tremor in her right hand due to the depakote. She is awake and alert and was able to feed herself her breakfast and lunch today. She was switched from keppra to vimpat in the hopes to decrease the depakote dose and eventually transition off however she had an allergic reaction and the Vimpat was stopped and the Keppra was restarted. denies CP, SOB, abdominal pain, one sided weakness, numbness tingling, vision changes swallowing issues. Physical Exam Physical Exam: Gen: alert NAD lungs course breath sounds CV RRR knows she is in the hospital [facility] finger to nose without bi pass hand patient information coordinator biceps triceps bilaterally 4+/5, hip flex slightly against gravity sensation intact to light and cool touch Results & Data Vital Signs (Past 12 Hours) Vital Signs Temp Pulse Resp BP Pulse Ox 03/22/19 11:00 36.5 C 59 L 20 90/61 L 98 03/22/19 07:00 36.5 C 58 L 18 114/75 98 03/22/19 04:03 36.3 C L 66 18 121/70 94 Laboratory Results Abnormal lab results 03/21/19 03/21/19 03/22/19 Range/Units 16:34 20:13 06:30 PT 18.3 H (9.0-12.0) Seconds INR 1.9 H (0.9-1.1) POC Glucose 110 H 104 H (70-99) 03/22/19 Range/Units 11:34 PT (9.0-12.0) Seconds INR (0.9-1.1) POC Glucose 108 H (70-99) Diagnostic Findings no new imaging
[2019-03-22] MEDS: WARFARIN SOD 2.5 MG TAB PO SCH (17:53)
[2019-03-22] MEDS: METOPROLOL SUCC 25MG EXT REL TAB PO SCH (17:53)
--- NOTE | 2019-03-22 18:44 | CT Scan Report ---
CT SCAN OF THE BRAIN WITHOUT IV CONTRAST CLINICAL HISTORY: AVM the cerebral edema. COMPARISON STUDY: CT of the brain dated 03/18/2019 and 10/09/2018. TECHNIQUE: Unenhanced axial CT scan of the brain is performed from the vertex to the skull base. A do se lowering technique was utilized adhering to the principles of ALARA. CT DOSE: 537.48 mGy.cm FINDINGS: Brain parenchyma: There is unchanged appearance of an AVM in the high left frontal lobe. This measure s 2.6 x 1.6 cm and there is associated vasogenic edema. There are age-related involutional changes no ting mild subcortical and periventricular microangiopathic change. There is no hemorrhage, midline s hift, or evidence of acute territorial ischemia by CT criteria. Buchanan-white matter differentiation is preserved. No extra-axial fluid collection is seen. Ventricles, sulci, cisterns: Prominent secondary to involutional change. Intracranial vasculature: There is atherosclerotic calcification of the cavernous carotid and vertebr al arteries. Calvarium: Unremarkable. Sinuses and mastoids: The visualized paranasal sinuses are clear. The mastoid air cells are well pneu matized. Orbits: The bony orbits are grossly intact. There are bilateral ocular lens implants. IMPRESSION: 1. No significant change from 03/18/2019. 2. An AVM is again seen in the high left frontal lobe with surrounding vasogenic edema. No midline sh ift is identified. 3. There is no hemorrhage or evidence of acute territorial ischemia by CT criteria. Electronically signed by: Joseph Davies M.D. 03/22/2019 6:41 PM
[2019-03-22] MEDS: DIVALPROEX EXTENDED RELEASE 250 MG TABCR PO SCH (20:03)
[2019-03-23 07:30] LABS: Basophils # (auto) 0.01 K/uL (0-0.2); Basophils % (auto) 0.2 %; Hematocrit (blood only) 34.2 % (37-47); Hemoglobin 10.8 g/dL (12.0-16.0); Immature Granulocytes # (auto) 0.17 K/uL (0.00-0.02); Immature Granulocytes % (auto) 2.9 %; Mean Corpuscular Hemoglobin 30.7 pg (25-34); Mean Corpuscular Hgb Conc 31.6 g/dL (32-36); Mean Corpuscular Volume 97.2 fL (80-100); Mean Platelet Volume 7.9 fL (7.4-10.4); Monocytes # (auto) 0.55 K/uL (0.11-0.59); Monocytes % (auto) 9.5 %; Neutrophils # (auto) 3.27 K/uL (1.4-6.5); Neutrophils % (auto) 56.4 %; Platelet Count 126 K/uL (130-400); RDW Coefficient of Variation 15.1 % (11.5-14.5); RDW Standard Deviation 53.9 fL (36.4-46.3); Red Blood Count 3.52 M/uL (4.2-5.4)
[2019-03-23 07:41] LABS: INR 1.5 (0.9-1.1); Prothrombin Time 15.1 Seconds (9.0-12.0)
[2019-03-23 08:08] LABS: BUN Creatinine Ratio 43.6 (10-20); Creatinine Clr Calc Pharmacy 51.5 ml/min; Est GFR (African American) 70.2; Est GFR (Non-African American) 60.6; Magnesium 2.5 mg/dl (1.8-2.4); Potassium 4.1 mmol/L (3.5-5.1)
[2019-03-23] MEDS: DIVALPROEX EXTENDED RELEASE 500 MG TAB PO SCH ×2 (08:13→20:00)
[2019-03-23] MEDS: INSULIN ASPART 100 UNITS/ML 3 ML PEN SC SCH ×4 (08:19→21:11)
[2019-03-23] MEDS: ASPIRIN 81 MG ECTAB PO SCH (08:20)
[2019-03-23] MEDS: PANTOprazole 40 MG TAB PO SCH (08:20)
[2019-03-23] MEDS: INSULIN GLARGINE SOLOSTAR 100 UNITS/ML 3 ML PEN SQ SCH (08:20)
[2019-03-23] MEDS: dexAMETHasone 4 MG TAB PO SCH ×2 (08:20→20:01)
[2019-03-23] MEDS: FLUTICASONE/VILANTEROL INHALER INH SCH (08:20)
[2019-03-23] MEDS: UMECLIDINIUM BROMIDE INH SCH (08:20)
[2019-03-23] MEDS: SENNA 8.6 MG TAB PO SCH (08:20)
--- NOTE | 2019-03-23 10:36 | Progress Note ---
DATE: 03/23/2019 SUBJECTIVE: I am seeing Mrs. Godinez in followup. 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 The patient was admitted with several seizures. Initially postictal with some increase in right-sided weakness in the postictal phase, which is improving. Steroids, Decadron were started and have been reduced in dose compared to admission. She is currently taking 4 mg twice a day. An intermediate dose of Depakote and Keppra have been started. Vimpat was tried but the patient was allergic. OBJECTIVE: The patient is awake and alert. No seizures have been noted. She is oriented to hospital, but thinks she is in [place]. She does not know the month. Naming is adequate, although spontaneous speech has some dysphasic errors. There is flattening of the right nasolabial fold, right upper extremity appears about 4, right lower is antigravity. There are decreased right rapid alternating movements. IMPRESSION AND PLAN: This patient has had complications of radiation to an arteriovenous malformation with radiation necrosis. Edema has waxed and waned and responded to Decadron. In the past, if Decadron was tapered too rapidly, the patient had more seizures and if too slowly, she had significant fluid retention. I would recommend that radiation oncology either at our facility or at [place] be consulted regarding additional treatments other than steroids and anticoagulants. I will review her outpatient chart to see how the steroids were tapered last. The does not recall and the discharge summaries that are available do not indicate the taper. No change should be made in the anticonvulsants at present. The is determining whether he would like his to go to inpatient rehabilitation at [facility] or penitentiary care or to go home. I have asked nursing to have physical therapy come and see the patient today. We will follow with you.
--- NOTE | 2019-03-23 11:19 | Hospitalist Progress Note ---
Date of Service March 23, 2019 Assessment & Plan (1) Breakthrough seizure: Seizure disorder -Breakthrough Seizure likely due to Vasogenic edema -neuro checks, seizure precautions, fall precautions while inpatient -urinary tract infection is ruled out, normal levels of creatinine kinase, la ctic acid, ammonia level, TSH, prolactin -blood culture cultures from 03/20/19 no growth -EEG: Moderate to severe generalized background slowing suggestive of a moderate to severe non specific encephalopathy, Focal slowing on the left suggestive of an underlying structural abnormality. -on this admission, patient's home dose Keppra was replaced with Vimpat (lacosamide); but Vimpat was stopped by neurology on 03/20/19 because of concerns for drug reaction and patient was returned to Keppra as 500 mg BID starting on 03/20/19 -patient has been continued usual home dose of Depakote as 1000 and 1250 mg qhs; an IV equivalent of valproic acid was given on night of 03/20/19 because of concern that patient could not take orals at that time -initially patient was on dexamethasone of 4 mg IV q6 hours for vasogenic edema but this is transitioned to 4 mg PO BID as per neurology by 03/21/19 -continue the current oral Keppra as 500 mg BID and oral Depakote 1000 mg daily with 1250 mg qhs and oral dexamethasone 4 mg PO BID -Patient has followup appointments with 04/26/2019 8:00 AM Provider Claudio Connell DO Department Neurology [facility] (2) Vasogenic edema: -History of Cerebral arteriovenous malformation -History of radiation for the AVM in January 2019 at [facility] in [place] which appears to have subsequently led to vasogenic edema and seizure disorders -admission CT scan: Increased vasogenic edema surrounding the left frontal vertex mass, consistent with the known arteriovenous malformation. No nicole hemorrhage is evident -management with dexamethasone -patient recently with upper extremity edema from steroids (in the past she had lower extremity from steroids) IV lasix 20 mg daily started on 03/22/19 to prevent fluid accumulation from steroids -duration of dexamethasone treatment is unclear at this time and neurology consultation recommend consult with radiation oncology at [facility] versus [facility] in [place]. Given less availability of specialists on weekends, have placed consult for radiation oncology at [facility] but do not expect recommendations until at least Monday03/25/19 Acute Kidney Injury -admission creatinine 1.35 -acute kidney injury resolved after IV fluids on this admission Chronic respiratory failure -Secondary to COPD -On chronic home Oxygen -No signs of exacerbation -Continue home inhalers History of Peripheral Vascular Disease -Continue aspirin History of Deep Vein Thrombosis in the past Supratherapeutic INR (on 03/19/19 and 03/20/19, resolved as of 03/21/19) -03/20/19 lower extremity ultrasound: No evidence of deep venous thrombus within the bilateral lower extremities. Minimal chronic thrombus within the left greater saphenous vein which was shown on ultrasound of July 31, 2018. -SCDs can be applied to right leg for DVT prophylaxis -coumadin as 2.5 mg daily restarted on 03/21/19 as INR 2.7 is no longer supratherapeutic -INR is 1.5 by 03/23/19 and will increase coumadin to 3 mg daily Chronic anemia Chronic thrombocytopenia -stable hemoglobin and platelets Ambulatory dysfunction -03/22/19: She can lift her legs on the bed a little bit. Patient's house has 5 steps. patient and patient's preference is to go home when medically ready. However, given patient's chronic mobility issues, they are willing to have casework supervisor see them again to see if any additional home health services needed versus application for physical therapy center after hospital stay -referral to [facility] has been made and awaiting insurance approvals/bed acceptance Code Status DNI/DNR Subjective Patient speaking well. Some upper extremity tremors which appears baseline. Right arm with some more swelling from recent steroids. denies acute shortness of breath. no chest pain. no abdominal pain. no vomiting. no dizziness. no lightheadedness Physical Exam Constitutional: comfortable Eyes: PERRL, conjunctivae normal, anicteric sclerae EOM intact bilaterally ENMT: external ear and nose normal, oropharynx normal Neck: normal visual inspection Respiratory: normal respiratory effort, lungs clear to auscultation Cardiovascular: Rate/Rhythm: regular rate and regular rhythm Gastrointestinal (Abdomen): normal bowel sounds, soft, nontender, no hepatosplenomegaly Musculoskeletal: Head/Neck/Chest: normocephalic and head atraumatic edema of upper extremity with more of the right arm Neurologic: PERRL, EOMI, accommodation nl, no face palsy, no dysarthria Psychiatric: Orientation: alert and cooperative Results & Data Vital Signs (Past 12 Hours) Vital Signs Temp Pulse Pulse Resp BP BP Pulse Ox 03/23/19 08:00 62 03/23/19 07:14 36.5 C 58 L 22 108/70 90 03/23/19 03:55 36.3 C L 56 L 18 96/69 L 96 03/23/19 00:38 58 L 03/22/19 23:55 36.5 C 60 18 118/74 98
[2019-03-23] MEDS ORDERED: FUROSEMIDE 20 MG in SYRINGE 0 ML IV ONE (11:45)
[2019-03-23] MEDS: METOPROLOL SUCC 25MG EXT REL TAB PO SCH (16:59)
[2019-03-23] MEDS: WARFARIN SOD 3 MG TAB PO SCH (17:23)
[2019-03-23] MEDS: DIVALPROEX EXTENDED RELEASE 250 MG TABCR PO SCH (20:01)
[2019-03-24 07:57] LABS: INR 1.6 (0.9-1.1); Prothrombin Time 15.7 Seconds (9.0-12.0)
[2019-03-24] MEDS: DIVALPROEX EXTENDED RELEASE 500 MG TAB PO SCH ×2 (08:01→19:47)
[2019-03-24] MEDS: INSULIN ASPART 100 UNITS/ML 3 ML PEN SC SCH ×4 (08:02→22:39)
[2019-03-24] MEDS: PANTOprazole 40 MG TAB PO SCH (08:04)
[2019-03-24] MEDS: ASPIRIN 81 MG ECTAB PO SCH (08:04)
[2019-03-24] MEDS: UMECLIDINIUM BROMIDE INH SCH (08:04)
[2019-03-24] MEDS: FLUTICASONE/VILANTEROL INHALER INH SCH (08:04)
[2019-03-24] MEDS: dexAMETHasone 4 MG TAB PO SCH ×2 (08:04→19:50)
[2019-03-24] MEDS: INSULIN GLARGINE SOLOSTAR 100 UNITS/ML 3 ML PEN SQ SCH (08:05)
[2019-03-24] MEDS: SENNA 8.6 MG TAB PO SCH (08:05)
--- NOTE | 2019-03-24 10:59 | Progress Note ---
DATE: 03/24/2019 SUBJECTIVE: I am seeing Ms. Godinez in followup of an AVM status post radiation with presumed radiation necrosis. She is currently on Decadron 4 mg twice a day. Followup CT shows no change in edema. The patient is feeling well without seizures. PHYSICAL EXAMINATION: She is awake and alert. She has some spontaneous word finding difficulty. There is minimal flattening of the right nasolabial fold. Normal visual solano. Right upper and right lower are nearly full. There are decreased rapid alternating movements. 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 PLAN: Recommend radiation oncology consult either through the hospital or through [facility] where the patient received her radiation. I will confirm with the prior neurology providers how they tapered her steroids in the past. No change in anticonvulsants at present, will check a Depakote level tomorrow. I think we need more structural clarification with regard to edema versus radiation necrosis. The patient is agreeable to have an MRI of the brain under conscious sedation. I have placed an order for anesthesia as well as the MRI. Consider hydration pre-MRI.
--- NOTE | 2019-03-24 12:13 | Hospitalist Progress Note ---
Date of Service March 24, 2019 Assessment & Plan (1) Breakthrough seizure: Seizure disorder -Breakthrough Seizure likely due to Vasogenic edema -neuro checks, seizure precautions, fall precautions while inpatient -urinary tract infection is ruled out, normal levels of creatinine kinase, la ctic acid, ammonia level, TSH, prolactin -blood culture cultures from 03/20/19 no growth -EEG: Moderate to severe generalized background slowing suggestive of a moderate to severe non specific encephalopathy, Focal slowing on the left suggestive of an underlying structural abnormality. -on this admission, patient's home dose Keppra was replaced with Vimpat (lacosamide); but Vimpat was stopped by neurology on 03/20/19 because of concerns for drug reaction and patient was returned to Keppra as 500 mg BID starting on 03/20/19 -patient has been continued usual home dose of Depakote as 1000 and 1250 mg qhs; an IV equivalent of valproic acid was given on night of 03/20/19 because of concern that patient could not take orals at that time -initially patient was on dexamethasone of 4 mg IV q6 hours for vasogenic edema but this is transitioned to 4 mg PO BID as per neurology by 03/21/19 -continue the current oral Keppra as 500 mg BID and oral Depakote 1000 mg daily with 1250 mg qhs and oral dexamethasone 4 mg PO BID -Patient has followup appointments with 04/26/2019 8:00 AM Provider Claudio Connell DO Department Neurology [facility] (2) Vasogenic edema: -History of Cerebral arteriovenous malformation -History of radiation for the AVM in January 2019 at [facility] in [place] which appears to have subsequently led to vasogenic edema and seizure disorders -admission CT scan: Increased vasogenic edema surrounding the left frontal vertex mass, consistent with the known arteriovenous malformation. No nicole hemorrhage is evident -management with dexamethasone -patient recently with upper extremity edema from steroids (in the past she had lower extremity from steroids) IV lasix 20 mg daily started on 03/22/19 to prevent fluid accumulation from steroids. transition to oral Lasix starting 03/24/19 -duration of dexamethasone treatment is unclear at this time and neurology consultation recommend consult with radiation oncology at [facility] versus [facility] in [place]. Given less availability of specialists on weekends, have placed consult for radiation oncology at [facility] but do not expect recommendations until at least Monday03/25/19 03/24/19: Neurology discussed with patient about brain MRI to further elaborate the structural defects of the brain in regards to the seizure but patient is uncomfortable about going through with this test and likely will decline the imaging testing Acute Kidney Injury -admission creatinine 1.35 -acute kidney injury resolved after IV fluids on this admission Chronic respiratory failure -Secondary to COPD -On chronic home Oxygen -No signs of exacerbation -Continue home inhalers History of Peripheral Vascular Disease -Continue aspirin History of Deep Vein Thrombosis in the past Supratherapeutic INR (on 03/19/19 and 03/20/19, resolved as of 03/21/19) -03/20/19 lower extremity ultrasound: No evidence of deep venous thrombus within the bilateral lower extremities. Minimal chronic thrombus within the left greater saphenous vein which was shown on ultrasound of July 31, 2018. -SCDs can be applied to right leg for DVT prophylaxis -coumadin as 2.5 mg daily restarted on 03/21/19 as INR 2.7 is no longer supratherapeutic -INR is 1.5 by 03/23/19 and will increase coumadin to 3 mg daily -INR is 1.6 on 03/24/19, continue current coumadin dose Chronic anemia Chronic thrombocytopenia -stable hemoglobin and platelets Ambulatory dysfunction -03/22/19: She can lift her legs on the bed a little bit. Patient's house has 5 steps. patient and patient's preference is to go home when medically ready. However, given patient's chronic mobility issues, they are willing to have caser see them again to see if any additional home health services needed versus application for physical therapy center after hospital stay -referral to [facility] has been made and awaiting insurance approvals/bed acceptance -as of 03/24/19: patient's deciding with patient that ultimately they do not want physical rehabilitation placement Code Status DNI/DNR Subjective Patient seen and examined eating lunch using her own power. She is not in respiratory distress. no headache. no dizziness. no chest discomforts. also at bedside. patient's deciding with patient that ultimately they do not want physical rehabilitation placement. We discussed together about steroid management. They want to wait for radiation oncology recommendations about the steroids dosing regards to the vasogenic edema. Neurology discussed with patient about brain MRI to further elaborate the structural defects of the brain in regards to the seizure but patient is uncomfortable about going through with this test and likely will decline the imaging testing Physical Exam Constitutional: comfortable Eyes: PERRL, conjunctivae normal, anicteric sclerae EOM intact bilaterally ENMT: external ear and nose normal, oropharynx normal Neck: normal visual inspection Respiratory: normal respiratory effort, lungs clear to auscultation Cardiovascular: Rate/Rhythm: regular rate and regular rhythm Gastrointestinal (Abdomen): normal bowel sounds, soft, nontender, no hepatosplenomegaly Musculoskeletal: Head/Neck/Chest: normocephalic and head atraumatic right arm swelling appears controlled Neurologic: PERRL, EOMI, accommodation nl, no face palsy, no dysarthria Psychiatric: Orientation: alert and cooperative Results & Data Vital Signs (Past 12 Hours) Vital Signs Temp Pulse Pulse Resp BP Pulse Ox 03/24/19 11:00 36.5 C 60 18 120/76 98 03/24/19 08:00 50 L 03/24/19 07:45 36.5 C 60 20 110/73 96 03/24/19 04:04 36.6 C 52 L 16 107/64 99
--- NOTE | 2019-03-24 13:50 | Anesthesiology Consultation ---
Date of Service March 24, 2019 Assessment & Plan Chart Review Chart Review: Pending: Refer to Additional Notes / Consult section (vasogenic edema vs radiation necrosis. Vasogenic edema greatly inreases the risk of anethsia. The ability to predict drug effects when the blood brain barrier is difficult. Sedation is likely to increase the blood CO2 and increase the cere bral blood flow. ) The procedure would need to greatly enhance the care the patient receives, if it is done prior to resolution of the edema. History Height/Weight Height: 5 ft 2 in Weight: 75.7 kg Allergies Allergy/AdvReac Type Severity Reaction Status Date / Time Sulfa (Sulfonamide Allergy Mild rash Verified 02/25/19 17:23 Antibiotics) alcohol Allergy Unknown Recovering Verified 02/25/19 17:23 Alcoholic lacosamide [From Vimpat] AdvReac Severe facial Verified 03/22/19 14:31 swelling and erythema Opioids - Morphine Analogues AdvReac Unknown HISTORY OF Verified 02/25/19 17:23 ADDICTION Medications Home Medications Medication Instructions Recorded Confirmed Last Taken Incruse Ellipta 1 inh INHALATION QAM 04/11/18 03/18/19 10/09/18 aspirin [Aspir-81] 81 mg PO QAM 04/11/18 03/18/19 10/09/18 Breo Ellipta 1 inh INHALATION QAM 10/09/18 03/18/19 10/09/18 divalproex 1,000 mg PO QAM 10/09/18 03/18/19 10/09/18 divalproex 1,250 mg PO QPM 10/09/18 03/18/19 10/09/18 20:30 1250 GIVEN IN ER furosemide 40 mg PO BIDM 10/09/18 03/18/19 10/09/18 metoprolol succinate 25 mg PO QDD 10/09/18 03/18/19 10/09/18 potassium chloride [Klor-Con M10] 10 meq PO TIDM 10/09/18 03/18/19 10/09/18 warfarin [Coumadin] 5 mg PO QDD 10/09/18 03/18/19 10/09/18 diazepam [Diastat] 5 mg DE Q12H PRN #7 ea 10/11/18 03/18/19 Unknown levetiracetam 250 mg PO DAILY 02/25/19 03/18/19 Unknown pantoprazole 40 mg PO DAILY 30 Days #30 tab 02/27/19 03/18/19 Unknown acetaminophen 325 mg PO Q6H PRN 03/18/19 03/18/19 Unknown lorazepam [Ativan] 1 mg BUCCAL UD PRN 03/18/19 03/18/19 Unknown Active Medications Generic Name Dose Route Start Last Admin Trade Name Freq PRN Reason Stop Dose Admin Aspirin 81 mg 03/19/19 09:00 03/24/19 08:04 Ecotrin Ectab PO 04/18/19 08:59 81 mg QAM MILY Administration Dexamethasone 4 mg 03/21/19 09:00 03/24/19 08:04 Decadron PO 04/20/19 08:59 4 mg BID MILY Administration Divalproex Sodium 1,000 mg 03/20/19 08:00 03/24/19 08:01 Depakote Extended Release PO 04/19/19 07:59 1,000 mg DAILY@08 MILY Administration Divalproex Sodium 1,000 mg 03/21/19 20:00 03/23/19 20:00 Depakote Extended Release PO 04/20/19 19:59 1,000 mg DAILY@1999 MILY Administration Divalproex Sodium 250 mg 03/21/19 20:00 03/23/19 20:01 Depakote Extended Release PO 04/20/19 19:59 250 mg DAILY@20 MILY Administration Fluticasone/Vilanterol 1 puffs 03/19/19 09:00 03/24/19 08:04 Breo Ellipta INH 04/18/19 08:59 1 puffs DAILY MILY Administration Insulin Aspart 0 units 03/19/19 01:15 03/24/19 12:14 Novolog Flexpen SC 04/18/19 01:14 Not Given ACHS [facility] Insulin Glargine 5 units 03/21/19 09:00 03/24/19 08:05 Lantus Solostar Pen SQ 04/20/19 08:59 5 units DAILY MILY Administration Levetiracetam 500 mg 03/21/19 08:00 03/24/19 08:02 Keppra PO 04/20/19 07:59 500 mg BID@0800,1999 MILY Administration Metoprolol Succinate 25 mg 03/19/19 16:30 03/23/19 16:59 Toprol Xl PO 04/18/19 16:29 25 mg QDD MILY Administration Pantoprazole Sodium 40 mg 03/19/19 09:00 03/24/19 08:04 Protonix PO 04/18/19 08:59 40 mg DAILY MILY Administration Sennosides 8.6 mg 03/22/19 09:00 03/24/19 08:05 Senokot PO 04/21/19 08:59 8.6 mg QAM MILY Administration Umeclidinium [place] 1 ea 03/19/19 09:00 03/24/19 08:04 Incruse Ellipta INH 04/18/19 08:59 1 ea DAILY MILY Administration Warfarin Sodium 3 mg 03/23/19 16:00 03/23/19 17:23 Coumadin PO 04/22/19 15:59 3 mg DAILY@1600 MILY Administration Past Medical History Medical History History of DVT (deep vein thrombosis) (Chronic) Hematoma of right thigh (Resolved) Non-ischemic cardiomyopathy (Chronic) Obesity (BMI 30.0-34.9) (Chronic) 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 with INR goal of 2.0-3.0 (Chronic) Vasogenic edema (Resolved) AVM (arteriovenous malformation) brain (Chronic) Seizures (Chronic) AA (alcohol abuse) (Resolved) COPD (chronic obstructive pulmonary disease) (Chronic) Past Family History Family History Mother Stroke Heart disease Past Surgical History Surgical History History of appendectomy (Chronic) History of cataract surgery (Chronic) Social History Smoking Status: Former smoker tobacco type: cigarettes Smoking cigarettes per day: 40 Do You Dip or Chew Tobacco: No Hx Alcohol Use: No Hx Substance Use: No substance use type: does not use Physical Exam Vital Signs Last Vital Signs Temp 36.5 C 03/24/19 11:00 Pulse 60 03/24/19 11:00 Resp 18 03/24/19 11:00 BP 120/76 03/24/19 11:00 Pulse Ox 98 03/24/19 11:00 Testing Laboratory Results 03/23/19 07:04 03/23/19 07:04 PT 15.7 Seconds (9.0-12.0) H 03/24/19 07:12 INR 1.6 (0.9-1.1) H 03/24/19 07:12 APTT 48.8 Seconds (21.0-31.0) H* 03/19/19 06:03 Urine Color Yellow 03/18/19 18:30 Urine Appearance Clear (Clear) 03/18/19 18:30 Urine pH 8.0 (4.5-7.5) H 03/18/19 18:30 Ur Specific [place] 1.010 (1.000-1.030) 03/18/19 18:30 Urine Protein Negative (Negative) 03/18/19 18:30 Urine Glucose (UA) Negative (Negative) 03/18/19 18:30 Urine Ketones Negative (Negative) 03/18/19 18:30 Urine Nitrite Negative (Negative) 03/18/19 18:30 Ur Leukocyte Esterase Negative (Negative) 03/18/19 18:30 03/20/19 12:15 Aerobic Blood Culture - Preliminary Blood No growth in Aerobic bottle after 48 hours. Anaerobic Blood Culture - Preliminary No growth in Anaerobic bottle after 48 hours. 03/20/19 12:06 Aerobic Blood Culture - Preliminary Blood No growth in Aerobic bottle after 48 hours. Anaerobic Blood Culture - Preliminary No growth in Anaerobic bottle after 48 hours. 03/24/19 03/24/19 11:45 07:25 POC Glucose 98 93 Electrocardiogram Date: 03/18/19 Findings: + NSR @ (80 bpm) poor quality. cannot rule out inferior infarct age undetermined Other Testing CT head 03/22/19 IMPRESSION: 1. No significant change from 03/18/2019. 2. An AVM is again seen in the high left frontal lobe with surrounding vasogenic edema. No midline shift is identified. 3. There is no hemorrhage or evidence of acute territorial ischemia by CT criteria.
[2019-03-24] MEDS: WARFARIN SOD 3 MG TAB PO SCH (17:07)
[2019-03-24] MEDS: FUROSEMIDE 40 MG TAB PO SCH (17:08)
[2019-03-24] MEDS: METOPROLOL SUCC 25MG EXT REL TAB PO SCH (17:08)
[2019-03-24] MEDS: DIVALPROEX EXTENDED RELEASE 250 MG TABCR PO SCH (19:48)
[2019-03-25 06:50] LABS: INR 1.7 (0.9-1.1); Prothrombin Time 16.5 Seconds (9.0-12.0)
[2019-03-25] MEDS: FLUTICASONE/VILANTEROL INHALER INH SCH (07:58)
[2019-03-25] MEDS: SENNA 8.6 MG TAB PO SCH (07:59)
[2019-03-25] MEDS: PANTOprazole 40 MG TAB PO SCH (07:59)
[2019-03-25] MEDS: ASPIRIN 81 MG ECTAB PO SCH (07:59)
[2019-03-25] MEDS: UMECLIDINIUM BROMIDE INH SCH (07:59)
[2019-03-25] MEDS: FUROSEMIDE 40 MG TAB PO SCH (07:59)
[2019-03-25] MEDS: INSULIN GLARGINE SOLOSTAR 100 UNITS/ML 3 ML PEN SQ SCH (08:00)
[2019-03-25] MEDS: DIVALPROEX EXTENDED RELEASE 500 MG TAB PO SCH (08:00)
[2019-03-25] MEDS: dexAMETHasone 4 MG TAB PO SCH (08:00)
[2019-03-25] MEDS: INSULIN ASPART 100 UNITS/ML 3 ML PEN SC SCH (08:01)
--- NOTE | 2019-03-25 10:04 | Hospitalist Progress Note ---
Date of Service March 25, 2019 Assessment & Plan (1) Breakthrough seizure: Seizure disorder -Breakthrough Seizure likely due to Vasogenic edema -neuro checks, seizure precautions, fall precautions while inpatient -urinary tract infection is ruled out, normal levels of creatinine kinase, la ctic acid, ammonia level, TSH, prolactin -blood culture cultures from 03/20/19 no growth -EEG: Moderate to severe generalized background slowing suggestive of a moderate to severe non specific encephalopathy, Focal slowing on the left suggestive of an underlying structural abnormality. -on this admission, patient's home dose Keppra was replaced with Vimpat (lacosamide); but Vimpat was stopped by neurology on 03/20/19 because of concerns for drug reaction and patient was returned to Keppra as 500 mg BID starting on 03/20/19 -patient has been continued usual home dose of Depakote as 1000 and 1250 mg qhs; an IV equivalent of valproic acid was given on night of 03/20/19 because of concern that patient could not take orals at that time -initially patient was on dexamethasone of 4 mg IV q6 hours for vasogenic edema but this is transitioned to 4 mg PO BID as per neurology by 03/21/19 -continue the current oral Keppra as 500 mg BID and oral Depakote 1000 mg daily with 1250 mg qhs and oral dexamethasone 4 mg PO BID -discussed with radiation oncology at [facility] Dr. Meza and he agrees to the steroid follow up plans as listed -Discharge to home continue the current oral Keppra as 500 mg BID and oral Depakote 1000 mg daily with 1250 mg qhs and oral dexamethasone 4 mg PO BID coumadin as 4 mg daily Discharge medications sent electronically to [facility] [address] [place] [id number] Patient should have INR checked by primary care doctor for coumadin adjustments if needed and glucose checked for any adjustment to diabetes management as patient is of dexamethasone 4 mg twice a day. De-escalation of steroids for the vasogenic edema can be done at [facility] Neurology clinic in [facility] versus referral to radiation oncology or neurosurgery at [facility] in [place] 04/01/2019 11:00 AM Provider DO Anjelica Saravia [facility] 04/12/2019 1:40 PM Provider DO Anjelica Saravia [facility] 04/26/2019 8:00 AM Provider Claudio Connell DO Department Neurology [facility] (2) Vasogenic edema: Presence of Cerebral arteriovenous malformation - In January 2018 patient was found to have left parietal calcified mass after workup for head injury, and this was 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 Skyler Penn MD Neurology at [facility] recommended on 04/13/18 to continue Decadron 4 mg BID when initially patient completed first evaluation of post radiation associated seizure and to continue this dosage until follow up with [facility] radiation oncology. Russell Jang MD Radiation Oncology at [facility] on 05/31/18 recommend switch of Decadron from 4 mg BID to 4 mg once a day x2 weeks, and then 2 mg once a day until she is seen in neurology clinic. the early months of 2018 were interrupted by multiple hospital admissions to [facility] in regards to seizures (along the way, [facility] Neurology [facility] clinic recommended on 07/03/18 decadron dosing as 2 mg every morning with 3 mg every night for 2 weeks then decrease to 2 mg twice daily x 2 weeks) but it was not until September 2018 neurology clinic follow up [facility] Neu[facility] that neurologist Dr. Neri noted that patient was finally off the dexamethasone -03/18/[address] scan: Increased vasogenic edema surrounding the left frontal vertex mass, consistent with the known arteriovenous malformation. No nicole hemorrhage is evident -management with dexamethasone -patient recently with upper extremity edema from steroids (in the past she had lower extremity from steroids) IV lasix 20 mg daily started on 03/22/19 to prevent fluid accumulation from steroids. transition to oral Lasix starting 03/24/19 -03/22/19 showed unchanged vasogenic edema -03/24/19: Neurology discussed with patient about brain MRI to further elaborate the structural defects of the brain in regards to the seizure but patient is uncomfortable about going through with this test declined the imaging testing -03/25/19: discussed with radiation oncology at [facility] Dr. Meza and he agrees to the steroid follow up plans as listed above Acute Kidney Injury -admission creatinine 1.35 -acute kidney injury resolved after IV fluids on this admission Chronic respiratory failure -Secondary to COPD -On chronic home Oxygen -No signs of exacerbation -Continue home inhalers History of Peripheral Vascular Disease -Continue aspirin History of Deep Vein Thrombosis in the past Supratherapeutic INR (on 03/19/19 and 03/20/19, resolved as of 03/21/19) -03/20/19 lower extremity ultrasound: No evidence of deep venous thrombus within the bilateral lower extremities. Minimal chronic thrombus within the left greater saphenous vein which was shown on ultrasound of July 31, 2018. -SCDs can be applied to right leg for DVT prophylaxis -coumadin as 2.5 mg daily restarted on 03/21/19 as INR 2.7 is no longer supratherapeutic -INR is 1.5 by 03/23/19 and will increase coumadin to 3 mg daily -INR is 1.6 on 03/24/19, continue current coumadin dose as 3 mg daily -INR is 1.7 on 03/25/19, patient can resume coumadin as 4 mg daily with INR follow up Chronic anemia Chronic thrombocytopenia -stable hemoglobin and platelets Ambulatory dysfunction -03/22/19: She can lift her legs on the bed a little bit. Patient's house has 5 steps. patient and patient's preference is to go home when medically ready. However, given patient's chronic mobility issues, they are willing to have immigration case manager see them again to see if any additional home health services needed versus application for physical therapy center after hospital stay -referral to [facility] has been made and awaiting insurance approvals/bed acceptance -as of 03/24/19: patient's deciding with patient that ultimately they do not want physical rehabilitation placement Code Status DNI/DNR Discharge Diagnosis: Seizure disorder, Vasogenic edema, Cerebral arteriovenous malformation (AVM), Chronic respiratory failure, Supratherapeutic INR (resolved); Ambulatory dysfunction Subjective Patient seen and examined at bedside. As per patient and patient's plans to go home today. Patient denies acute symptoms of chest pain or shortness of breath or abdominal pain. no vomiting. Discharge plans discussed at length including telephone recommendations in regards to steroid dosing from [facility] Radiation Oncology Dr. Meza Physical Exam Constitutional: comfortable Eyes: PERRL, conjunctivae normal, anicteric sclerae EOM intact bilaterally ENMT: external ear and nose normal, oropharynx normal Neck: normal visual inspection Respiratory: normal respiratory effort, lungs clear to auscultation (on chronic nasal cannula) Cardiovascular: Rate/Rhythm: regular rate and regular rhythm Gastrointestinal (Abdomen): normal bowel sounds, soft, nontender, no hepatosplenomegaly Musculoskeletal: Head/Neck/Chest: normocephalic and head atraumatic Neurologic: PERRL, EOMI, accommodation nl, no face palsy, no dysarthria Psychiatric: Orientation: alert and cooperative Results & Data Vital Signs (Past 12 Hours) Vital Signs Temp Pulse Pulse Resp BP Pulse Ox 03/25/19 07:23 36.8 C 59 L 18 114/75 98 03/25/19 04:33 36.5 C 53 L 20 101/60 99 03/25/19 00:00 56 L 03/24/19 23:13 36.6 C 74 16 116/74 95
--- NOTE | 2019-03-25 10:22 | Discharge Summary ---
Date of Service March 25, 2019 Admission HPI Per Admitting Provider History obtained from patient, family, and records. Limited history from patient secondary to disorientation. Medical history significant for seizure disorder, cerebral AVM status post radiotherapy, chronic respiratory failure secondary to COPD on home O2, hx PVD, past tobacco/alcohol abuse, chronic anemia (baseline hemoglobin of 9), Chronic thrombocytopenia,history DVT on Coumadin. Recent confinement February 2019 for U GIB, supratherapeutic INR EGD showed mild gastritis. Colonoscopy showed diverticulosis. Aspirin and Coumadin restarted prior to discharge. Yesterday, patient noted increased urinary frequency, urgency, hematuria symptoms without flank pain. On-call physician recommended taking leftover Cipro antibiotic Rx at home for possible UTI. No urine specimen obtained. Today patient more tired than usual after physical therapy session as per . Patient few hours ago weakness seizure manifesting as right leg shaking followed by episode of confusion. Last seizure as per was about 5 months ago. Patient compliant with home medications. Patient administered Ativan sublingual and diazepam rectal. Patient brought to the emergency room. Patient denies chest pain, S OB, cough symptoms. IV Decadron given for vasogenic edema on CT. IV Keppra load given at the emergency room following neurologist on-call recommendations. Medical History as above Surgical History : Cataract surgery, vascular procedures, appendectomy Family History : Dementia, lung cancer, stroke Personal/Social history : Past tobacco/alcohol abuse as per records Admission Exam Per Admitting Provider GENERAL: Comfortable, dysphasic, struggles with recent memory, no respiratory distress, obese SKIN: Pallor , warm HEENT: Pale palpebral conjunctivae, no ptosis, dry buccal mucosa NECK : Supple, short neck, no tenderness CHEST : Decreased breath sounds , no tenderness HEART : RRR, no obvious murmurs ABDOMEN: distention, nontender EXTREMITIES : minimal LE swelling/no LE tenderness, no other conspicuous deformities noted NEUROLOGIC : Coherent, dysphasic, intermittent echolalia, no facial asymmetry, intention tremors, MMTS BUE 4/5, RLE 3/5, LLE 4/5, gait and stance not assessed Principal Diagnosis Seizure disorder, Vasogenic edema, Cerebral arteriovenous malformation (AVM), Chronic respiratory failure, Supratherapeutic INR (resolved); Ambulatory dysfunction Discharge Exam Constitutional comfortable Eyes PERRL, conjunctivae normal, anicteric sclerae EOM intact bilaterally ENMT external ear and nose normal, oropharynx normal Neck normal visual inspection Respiratory normal respiratory effort, lungs clear to auscultation (on chronic nasal cannula) Cardiovascular Rate/Rhythm: regular rate and regular rhythm Gastrointestinal (Abdomen) normal bowel sounds, soft, nontender, no hepatosplenomegaly Musculoskeletal Head/Neck/Chest: normocephalic and head atraumatic Neurologic PERRL, EOMI, accommodation nl, no face palsy, no dysarthria Psychiatric Orientation: alert and cooperative Discharge Data Allergies Allergy/AdvReac Type Severity Reaction Status Date / Time Sulfa (Sulfonamide Allergy Mild rash Verified 02/25/19 17:23 Antibiotics) alcohol Allergy Unknown Recovering Verified 02/25/19 17:23 Alcoholic lacosamide [From Vimpat] AdvReac Severe facial Verified 03/22/19 14:31 swelling and erythema Opioids - Morphine Analogues AdvReac Unknown HISTORY OF Verified 02/25/19 17:23 ADDICTION Consultations 03/18/19 22:47 ED Decision to Admit Stat 03/19/19 01:15 Consult Neurology Routine 03/23/19 11:16 Consult Radiation Oncology Routine 03/25/19 08:00 Consult Anesthesiology Routine Ordered Studies 03/18/19 20:28 CT head/brain wo con Stat 03/20/19 07:58 US venous doppler LE BI Routine 03/22/19 16:32 CT head/brain wo con Routine Hospital Course (1) Breakthrough seizure: Seizure disorder -Breakthrough Seizure likely due to Vasogenic edema -neuro checks, seizure precautions, fall precautions while inpatient -urinary tract infection is ruled out, normal levels of creatinine kinase, lactic acid, ammonia level, TSH, prolactin -blood culture cultures from 03/20/19 no growth -EEG: Moderate to severe generalized background slowing suggestive of a moderate to severe non specific encephalopathy, Focal slowing on the left suggestive of an underlying structural abnormality. -on this admission, patient's home dose Keppra was replaced with Vimpat (lacosamide); but Vimpat was stopped by neurology on 03/20/19 because of concerns for drug reaction and patient was returned to Keppra as 500 mg BID starting on 03/20/19 -patient has been continued usual home dose of Depakote as 1000 and 1250 mg qhs; an IV equivalent of valproic acid was given on night of 03/20/19 because of concern that patient could not take orals at that time -initially patient was on dexamethasone of 4 mg IV q6 hours for vasogenic edema but this is transitioned to 4 mg PO BID as per neurology by 03/21/19 -continue the current oral Keppra as 500 mg BID and oral Depakote 1000 mg daily with 1250 mg qhs and oral dexamethasone 4 mg PO BID -discussed with radiation oncology at [facility] Dr. Meza and he agrees to the steroid follow up plans as listed -Discharge to home continue the current oral Keppra as 500 mg BID and oral Depakote 1000 mg daily with 1250 mg qhs and oral dexamethasone 4 mg PO BID coumadin as 4 mg daily Discharge medications sent electronically to [facility] [id number] [place] [id number] Patient should have INR checked by primary care doctor for coumadin adjustments if needed and glucose checked for any adjustment to diabetes management as patient is of dexamethasone 4 mg twice a day. De-escalation of steroids for the vasogenic edema can be done at [facility] in [facility] versus referral to radiation oncology or neurosurgery at [facility] in [place] 04/01/2019 11:00 AM Provider Tanesha Ponce DO [facility] 04/12/2019 1:40 PM Provider Tanesha Ponce [facility] 04/26/2019 8:00 AM Provider Claudio Connell Department Neurology 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 Skyler Penn MD Neurology at [facility] recommended on 04/13/18 to continue Decadron 4 mg BID when initially patient completed first evaluation of post radiation associated seizure and to continue this dosage until follow up with [facility] radiation oncology. Russell Jang MD Radiation Oncology at [facility] on 05/31/18 recommend switch of Decadron from 4 mg BID to 4 mg once a day x2 weeks, and then 2 mg once a day until she is seen in neurology clinic. the early months of 2018 were interrupted by multiple hospital admissions to [facility] in regards to seizures (along the way, [facility] clinic recommended on 07/03/18 decadron dosing as 2 mg every morning with 3 mg every night for 2 weeks then decrease to 2 mg twice daily x 2 weeks) but it was not until September 2018 neurology clinic follow up [facility] that neurologist Dr. Neri noted that patient was finally off the dexamethasone -03/18/[address] scan: Increased vasogenic edema surrounding the left frontal vertex mass, consistent with the known arteriovenous malformation. No nicole hemorrhage is evident -management with dexamethasone -patient recently with upper extremity edema from steroids (in the past she had lower extremity from steroids) IV lasix 20 mg daily started on 03/22/19 to prevent fluid accumulation from steroids. transition to oral Lasix starting 03/24/19 -03/22/19 showed unchanged vasogenic edema -03/24/19: Neurology discussed with patient about brain MRI to further elaborate the structural defects of the brain in regards to the seizure but patient is uncomfortable about going through with this test declined the imaging testing -03/25/19: discussed with radiation oncology at [facility] Dr. Meza and he agrees to the steroid follow up plans as listed above Acute Kidney Injury -admission creatinine 1.35 -acute kidney injury resolved after IV fluids on this admission Chronic respiratory failure -Secondary to COPD -On chronic home Oxygen -No signs of exacerbation -Continue home inhalers History of Peripheral Vascular Disease -Continue aspirin History of Deep Vein Thrombosis in the past Supratherapeutic INR (on 03/19/19 and 03/20/19, resolved as of 03/21/19) -03/20/19 lower extremity ultrasound: No evidence of deep venous thrombus within the bilateral lower extremities. Minimal chronic thrombus within the left greater saphenous vein which was shown on ultrasound of July 31, 2018. -SCDs can be applied to right leg for DVT prophylaxis -coumadin as 2.5 mg daily restarted on 03/21/19 as INR 2.7 is no longer supratherapeutic -INR is 1.5 by 03/23/19 and will increase coumadin to 3 mg daily -INR is 1.6 on 03/24/19, continue current coumadin dose as 3 mg daily -INR is 1.7 on 03/25/19, patient can resume coumadin as 4 mg daily with INR follow up Chronic anemia Chronic thrombocytopenia -stable hemoglobin and platelets Ambulatory dysfunction -03/22/19: She can lift her legs on the bed a little bit. Patient's house has 5 steps. patient and patient's preference is to go home when medically ready. However, given patient's chronic mobility issues, they are willing to have disease case manager rn see them again to see if any additional home health services needed versus application for physical therapy center after hospital stay -referral to [facility] has been made and awaiting insurance approvals/bed acceptance -as of 03/24/19: patient's deciding with patient that ultimately they do not want physical rehabilitation placement Code Status DNI/DNR Discharge Diagnosis: Seizure disorder, Vasogenic edema, Cerebral arteriovenous malformation (AVM), Chronic respiratory failure, Supratherapeutic INR (resolved); Ambulatory dysfunction Total Time Total Time Spent Total Time Spent (In Minutes): 40 minutes Total Time Includes: Examination of the Patient, Discharge Planning, Medication Reconciliation and Communication With Other Providers Discharge Plan Discharge Items Patient Disposition: Home - Self-Care Reason For Visit: BREAKTHROUGH SEIZURE, CEREBRAL EDEMA Discharge Diagnosis: Seizure disorder, Vasogenic edema, Cerebral arteriovenous malformation (AVM), Chronic respiratory failure, Supratherapeutic INR (resolved); Ambulatory dysfunction Condition on Discharge: Good Activity: Resume your previous activity Non-emergency contact: Primary Care Provider and Neurologist Call non-emergency contact if: you have any medication questions Follow-up/Referrals: Tanesha Ponce DO [Primary Care Provider] - Diet: Carb Consistent or DM2 and Heart Healthy Addtl Attending Provider Instructions: Discharge to home continue the current oral Keppra as 500 mg BID and oral Depakote 1000 mg daily with 1250 mg qhs and oral dexamethasone 4 mg PO BID coumadin as 4 mg daily Discharge medications sent electronically to [facility] [address] [place] [address] Patient should have INR checked by primary care doctor for coumadin adjustments if needed and glucose checked for any adjustment to diabetes management as patient is of dexamethasone 4 mg twice a day. De-escalation of steroids for the vasogenic edema can be done at [facility] in [facility] versus referral to radiation oncology or neurosurgery at [facility] in [place] 04/01/2019 11:00 AM Provider Tanesha Ponce [facility] 04/12/2019 1:40 PM Provider Tanesha Ponce [facility] [place] 04/26/2019 8:00 AM Provider Claudio Connell Department Neurology [facility] Pending Studies at Discharge: No Stand-Alone Forms: My [facility] Medications and DC Order Prescriptions: New dexamethasone 4 mg Tablet 4 mg PO BID 30 Days Qty: 60 RF: 0 levetiracetam 500 mg tablet 500 mg PO BID@0800,2000 30 Days Qty: 60 RF: 0 warfarin [Coumadin] 4 mg Tablet 4 mg PO DAILY@1600 30 Days Qty: 30 RF: 0 Continued aspirin [Aspir-81] 81 mg Tablet,Delayed Release (Dr/Ec) 81 mg PO QAM RF: 0 Incruse Ellipta 62.5 mcg/actuation Blister With Device 1 inh INHALATION QAM RF: 0 divalproex 500 mg Tablet Extended Release 24 Hr 1,250 mg PO QPM RF: 0 Breo Ellipta 200-25 mcg/dose Blister With Device 1 inh INHALATION QAM RF: 0 furosemide 40 mg tablet 40 mg PO BIDM RF: 0 divalproex 500 mg tablet extended release 24 hr 1,000 mg PO QAM RF: 0 metoprolol succinate 25 mg tablet extended release 24 hr 25 mg PO QDD RF: 0 potassium chloride [Klor-Con M10] 10 mEq tablet,ER particles/crystals 10 meq PO TIDM RF: 0 diazepam [Diastat] 2.5 mg kit 5 mg [place] Q12H PRN (Reason: seizure ) Qty: 7 RF: 0 lorazepam [Ativan] 1 mg tablet 1 mg BUCCAL UD PRN (Reason: as needed for seizure) RF: 0 acetaminophen 325 mg Tablet 325 mg PO Q6H PRN (Reason: Pain) RF: 0 pantoprazole 40 mg Tablet,Delayed Release (Dr/Ec) 40 mg PO DAILY 30 Days Qty: 30 RF: 0 Discontinued warfarin [Coumadin] 5 mg tablet 5 mg PO QDD RF: 0 levetiracetam 250 mg tablet 250 mg PO DAILY RF: 0 Discharge Orders: Discharge Order (Routine); Ordered 03/25/19 Ordered By: Vaughn Shannon Admission Data Admit Date/Time: 03/18/19 23:35 Attending Provider: Vaughn Shannon Admit Provider: Alvaro Rowe Primary Care Provider: Tanesha Ponce Other Providers: Alvaro Rowe ; Claudio Connell ; [place] ; [facility] ; Rowena Meza ; Karen Loera ; Ankita Schmitz ; Annika Shaikh ; Miranda Samano ; Gabrielle Person ; Taylor Rader ; Bal Noriega ; Ross Wade ; Sushil Matias ; Kurt Colby ; Lima Colby ; Tao Lewis ; Savi Worthy ; Timoteo Kingston ; Sherif Reed ; Jorden Melgoza ; Redd Campbell ; Ramo Judd ; Karmen Casiano ; Immanuel Camacho ; Cecilia Villa ; Sheri Camacho ; Claudio العلي ; Holli Martines ; Kd Wilson ; Iram Cano ; Maria G Rodrigues ; Ray Tyson ; Luci Kennedy ; Verónica Miner ; Nichole Toney ; Palma Tavares ; Alvaro Tavares V ; David Mccollum ; Annika Waters ; Anthony Pierce ; Ac Brown ; Yue Valentine ; Lorna Valverde ; Alvaro Vega ; Isaias Casiano ; Stephan Turner ; Lindsay Gu ; Nichole Yanes ; Sushil Pickard ; Masha Bañuelos ; Sherif Mock ; Augusto Judd ; Demi Montoya ; Wili Renae ; Marlo Torres
[2019-03-25] MEDS ORDERED: WARFARIN SOD 4 MG TAB PO SCH (16:00)
--- NOTE | 2019-04-26 06:28 | History & Physical Report ---
Date of Service April 26, 2019 Assessment & Plan (1) Breakthrough seizure: Secondary to recurrent vasogenic edema secondary to cerebral AVM status post radiotherapy Supratherapeutic tomorrow a.m. chronic respiratory failure secondary to COPD on home O2,, status at baseline hx PVD as per records Chronic anemia, hemoglobin slightly better than baseline past tobacco/alcohol abuse chronic thrombocytopenia history DVT on Coumadin INR slightly subtherapeutic Medical telemetry Decadron IV for vasogenic edema causing breakthrough seizure Increase Keppra to 1 g BID for now Hold Depakote for now given supratherapeutic level Recheck Depakote level tomorrow a.m. Seizure precautions, Ativan as needed active seizure Neurology consult RE breakthrough seizure DVT prophylaxis. Coumadin INR goal between 2 and 3 DNR as per patient's previous wishes as per , Mr.Clyde Godinez. He requests updates from providers thru [id number]. Case discussed with Dr. Neri (neurologist on-call) who is in agreement with plan of care until seen by rounding specialist in a.m. Total critical care time was 45 minutes. History of Present Illness Chief Complaint: seizures as per Primary Care Provider: Tanesha Ponce DO History obtained from patient, family, and records. Limited history from patient secondary to disorientation. Medical history significant for seizure disorder, cerebral AVM status post radiotherapy, chronic respiratory failure secondary to COPD on home O2, hx PVD, past tobacco/alcohol abuse, chronic anemia (baseline hemoglobin of 9-10), Chronic thrombocytopenia,history DVT on Coumadin. Recent confinement last month for breakthrough seizure secondary to vasogenic edema from known cerebral AV malformation. Patient discharged on increased Keppra, Depakote doses; Decadron taper. Generalized weakness noted by the last 2 weeks. Some witnessed falling at home with legs giving out as per outpatient notes. Yesterday patient noted generalized achy headache symptoms. Around 6:30 PM last night, patient noted to have a convulsant by her with patient's left foot shaking. Patient a little more confused than usual after episode. Increase in usual weakness weakness on the left leg. Patient compliant with home AED Rx as per possible. Patient brought to the ER by EMS. Medical History as above Surgical History : Cataract surgery, vascular procedures, appendectomy Family History : Dementia, lung cancer, stroke Personal/Social history : Past tobacco/alcohol abuse as per records Allergies Allergy/AdvReac Type Severity Reaction Status Date / Time Sulfa (Sulfonamide Allergy Mild rash Verified 04/26/19 05:00 Antibiotics) alcohol Allergy Unknown Recovering Verified 04/26/19 05:00 Alcoholic lacosamide [From Vimpat] AdvReac Severe facial Verified 04/26/19 05:00 swelling and erythema Opioids - Morphine Analogues AdvReac Unknown HISTORY OF Verified 04/26/19 05:00 ADDICTION Home Medications Home Medications Medication Instructions Recorded Confirmed Type Incruse Ellipta 1 inh INHALATION QAM 04/11/18 04/26/19 History aspirin [Aspir-81] 81 mg PO QAM 04/11/18 04/26/19 History Breo Ellipta 1 inh INHALATION QAM 10/09/18 04/26/19 History divalproex 1,000 mg PO DAILY@0700 10/09/18 04/26/19 History divalproex 1,250 mg PO DAILY@1900 10/09/18 04/26/19 History furosemide 40 mg PO BIDM 10/09/18 04/26/19 History metoprolol succinate 25 mg PO QDD 10/09/18 04/26/19 History potassium chloride [Klor-Con M10] 10 meq PO TIDM 10/09/18 04/26/19 History diazepam [Diastat] 5 mg [place] Q12H PRN #7 ea 10/11/18 04/26/19 Rx acetaminophen 325 mg PO Q6H PRN 03/18/19 04/26/19 History lorazepam [Ativan] 1 mg BUCCAL UD PRN 03/18/19 04/26/19 History dexamethasone 2 mg PO DAILY 04/26/19 04/26/19 History levetiracetam 500 mg PO AMPM 04/26/19 04/26/19 History multivitamin [Daily Multi-Vitamin] 1 tab PO DAILY 04/26/19 04/26/19 History warfarin [Jantoven] 5 mg PO QPM 04/26/19 04/26/19 History Past Med/Surg History Medical History History of DVT (deep vein thrombosis) (Chronic) Hematoma of right thigh (Resolved) Non-ischemic cardiomyopathy (Chronic) Obesity (BMI 30.0-34.9) (Chronic) nursing home current use of anticoagulants with INR goal of 2.0-3.0 (Chronic) Vasogenic edema (Resolved) AVM (arteriovenous malformation) brain (Chronic) Seizures (Chronic) AA (alcohol abuse) (Resolved) COPD (chronic obstructive pulmonary disease) (Chronic) Surgical History History of appendectomy (Chronic) History of cataract surgery (Chronic) Family History Mother Stroke Heart disease Social History Preferred Language: Russian Communication Ability: Impaired Visual Impairment: No Limitations 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 Required: No Beliefs That Will Affect Care: None marital status: Current Living Situation: Spouse Current Living Situation Comment: [place] [facility] current occupational status: retired Other Information That Helps Us Care for You: No Feels Safe at Home: Yes Smoking Status: Former smoker Tobacco Type: cigarettes ; Cigarettes Per Day: 40 ; Do You Dip or Chew Tobacco: No ; Second Hand Exposure: No ; Hx Alcohol Use: No Hx Substance Use: No Review of Systems Review of Systems: Could not be reliably obtained Physical Exam Physical Exam: GENERAL: Comfortable, lethargic, oriented to place, obese,, no respiratory distress, obese SKIN: Pallor , warm HEENT: Pale palpebral conjunctivae, no ptosis, dry buccal mucosa NECK : Supple, short neck, no tenderness CHEST : Decreased breath sounds , no tenderness HEART : RRR, no obvious murmurs ABDOMEN: distention, nontender EXTREMITIES : minimal LE swelling/no LE tenderness, no other conspicuous deformities noted NEUROLOGIC : Lethargic, oriented to place, no facial asymmetry, MMTS BUE 4/5, RLE 2/5, LLE 3/5, gait and stance not assessed Results & Data Laboratory Results Laboratory Results WBC 5.80 K/uL (4.8-10.8) 03/23/19 07:04 RBC 3.52 M/uL (4.2-5.4) L 03/23/19 07:04 Hgb 10.8 g/dL (12.0-16.0) L 03/23/19 07:04 Hct 34.2 % (37-47) L 03/23/19 07:04 MCV 97.2 fL (80-100) 10/19/19 07:04 MCH 30.7 pg (25-34) 03/23/19 07:04 MCHC 31.6 g/dL (32-36) L 03/23/19 07:04 RDW Std Deviation 53.9 fL (36.4-46.3) H 03/23/19 07:04 RDW Coeff of Delmer 15.1 % (11.5-14.5) H 03/23/19 07:04 Plt Count 126 K/uL (130-400) L 03/23/19 07:04 MPV 7.9 fL (7.4-10.4) 03/23/19 07:04 Immature Gran % (Auto) 2.9 % 03/23/19 07:04 Neut % (Auto) 56.4 % 03/23/19 07:04 Lymph % (Auto) 31.0 % 03/23/19 07:04 [place] % (Auto) 9.5 % 03/23/19 07:04 Eos % (Auto) 0.0 % 03/23/19 07:04 Baso % (Auto) 0.2 % 03/23/19 07:04 Immature Gran # (Auto) 0.17 K/uL (0.00-0.02) H 03/23/19 07:04 Neut # (Auto) 3.27 K/uL (1.4-6.5) 03/23/19 07:04 Lymph # (Auto) 1.80 K/uL (1.2-3.4) 03/23/19 07:04 [place] # (Auto) 0.55 K/uL (0.11-0.59) 03/23/19 07:04 Eos # (Auto) 0.00 K/uL (0-0.5) 03/23/19 07:04 Baso # (Auto) 0.01 K/uL (0-0.2) 03/23/19 07:04 RBC Morphology Unremarkable 03/19/19 06:03 PT 16.5 Seconds (9.0-12.0) H 03/25/19 06:26 INR 1.7 (0.9-1.1) H 03/25/19 06:26 APTT 48.8 Seconds (21.0-31.0) H* 03/19/19 06:03 PTT Ratio 1.8 03/19/19 06:03 VBG pH 7.49 (7.36-7.41) H 03/21/19 06:03 VBG pH Cancelled 03/21/19 06:03 VBG pCO2 47 mmHg (38-50) 03/21/19 06:03 VBG pO2 31 mmHg 03/21/19 06:03 VBG HCO3 35 mmol/L 03/21/19 06:03 VBG O2 Saturation < 60.0 % 03/21/19 06:03 VBG Base Excess 10.3 mEq/L 03/21/19 06:03 Barometric Pressure 719.7 mm/Hg 03/21/19 06:03 Sodium 142 mmol/L (136-145) 03/23/19 07:04 Potassium 4.1 mmol/L (3.5-5.1) 03/23/19 07:04 Chloride 104 mmol/L (98-107) 03/23/19 07:04 Carbon Dioxide 34 mmol/L (21-32) H 03/23/19 07:04 Anion Gap 4.0 (3-11) 03/23/19 07:04 BUN 41 mg/dl (7-18) H 03/23/19 07:04 Creatinine 0.94 mg/dl (0.6-1.2) 03/23/19 07:04 Est Cr Clr Drug Dosing 51.5 ml/min 03/23/19 07:04 Est GFR ( Amer) 70.2 03/23/19 07:04 Est GFR (Non-Af Amer) 60.6 03/23/19 07:04 BUN/Creatinine Ratio 43.6 (10-20) H 03/23/19 07:04 Glucose 93 mg/dl (70-99) 03/23/19 07:04 POC Glucose 71 (70-99) 03/25/19 07:33 Lactate 1.4 mmol/L (0.4-2.0) 03/20/19 12:15 Calcium 9.0 mg/dl (8.5-10.1) 03/23/19 07:04 Phosphorus 3.2 mg/dl (2.5-4.9) 03/18/19 19:07 Magnesium 2.5 mg/dl (1.8-2.4) H 03/23/19 07:04 Total Bilirubin 0.3 mg/dl (0.2-1) 03/21/19 06:03 AST 26 U/L (15-37) 03/21/19 06:03 ALT 14 U/L (12-78) 03/21/19 06:03 Alkaline Phosphatase 66 U/L (45-117) 03/21/19 06:03 Ammonia 12.4 umol/L (11-32) 03/20/19 12:15 Total Creatine Kinase 53 U/L (26-192) 03/20/19 12:15 NT-Pro-B Natriuret Pep 599 pg/ml (0-900) 03/18/19 19:07 Total Protein 5.5 gm/dl (6.4-8.2) L 03/21/19 06:03 Albumin 2.4 gm/dl (3.4-5.0) L 03/21/19 06:03 Globulin 3.1 gm/dl (2.5-4.0) 03/21/19 06:03 Albumin/Globulin Ratio 0.8 (0.9-2) L 03/21/19 06:03 Lipase 206 U/L (73-393) 03/18/19 19:07 TSH 0.992 uIu/ml (0.300-4.500) 03/20/19 12:15 Prolactin 5.99 ng/ml 03/20/19 12:15 Urine Color Yellow 03/18/19 18:30 Urine Appearance Clear (Clear) 03/18/19 18:30 Urine pH 8.0 (4.5-7.5) H 03/18/19 18:30 Ur Specific [place] 1.010 (1.000-1.030) 03/18/19 18:30 Urine Protein Negative (Negative) 03/18/19 18:30 Urine Glucose (UA) Negative (Negative) 03/18/19 18:30 Urine Ketones Negative (Negative) 03/18/19 18:30 Urine Blood Negative (Negative) 03/18/19 18:30 Urine Nitrite Negative (Negative) 03/18/19 18:30 Urine Bilirubin Negative (Negative) 03/18/19 18:30 Urine Urobilinogen Negative (Negative) 03/18/19 18:30 Ur Leukocyte Esterase Negative (Negative) 03/18/19 18:30 Valproic Acid 96 mcg/ml (50-100) 03/25/19 06:26 Levetiracetam 17.6 mcg/mL (12.0-46.0) 03/18/19 19:07 Ethyl Alcohol mg/dL < 3.0 mg/dl (0-3) 03/18/19 19:[address] head initial read no significant interval change of left frontoparietal parasagittal calcified lesion in associated vasogenic edema from comparison study taken March 22, 2019. EKG as per my interpretation rate 90, NSR, normal axis, ST depression laterally lateral leads Code Status & VTE Plan VTE Prophylaxis Plan VTE Prophylaxis will be ordered: Yes
== END 2019-03-25 12:00 | disposition home health service (06) | DRG 100 ==
LOC: ED 18:07 → SUATTDRO 23:35 → 2S 23:35 → 2W 03-19 20:42

== ENCOUNTER 2019-04-26 03:39 | Inpatient (IN) ==
[2019-04-26 04:08] LABS: Hematocrit (blood only) 35.2 % (37-47); Mean Corpuscular Hemoglobin 31.2 pg (25-34); Mean Corpuscular Hgb Conc 31.3 g/dL (32-36); Mean Corpuscular Volume 99.7 fL (80-100); RDW Standard Deviation 64.4 fL (36.4-46.3); Red Blood Count 3.53 M/uL (4.2-5.4); White Blood Count 4.05 K/uL (4.8-10.8)
[2019-04-26 04:21] LABS: Appearance Urine Clear (Clear); Bilirubin Urine Negative (Negative); Blood Urine Negative (Negative); Color Urine Yellow; Glucose Urine UA Negative (Negative); Ketones Urine Negative (Negative); Leukocyte Esterase Urine Negative (Negative); Nitrite Urine Negative (Negative); Protein Urine Negative (Negative); Specific Gravity Urine 1.013 (1.000-1.030); Urobilinogen Urine Negative (Negative); pH Urine 6.5 (4.5-7.5)
[2019-04-26 04:25] LABS: Albumin Level 2.5 gm/dl (3.4-5.0); BUN Creatinine Ratio 48.9 (10-20); Calcium 9.2 mg/dl (8.5-10.1); Creatinine Clr Calc Pharmacy 56.9 ml/min; Est GFR (African American) 73.1; Magnesium 2.1 mg/dl (1.8-2.4); Potassium 3.9 mmol/L (3.5-5.1)
[2019-04-26 04:28] LABS: Albumin Globulin Ratio 0.7 (0.9-2); Bilirubin,Total 0.3 mg/dl (0.2-1); Globulin 3.6 gm/dl (2.5-4.0); Total Protein 6.1 gm/dl (6.4-8.2)
[2019-04-26 04:30] LABS: INR 1.8 (0.9-1.1); Prothrombin Time 17.6 Seconds (9.0-12.0)
[2019-04-26] MEDS ORDERED: SODIUM CHLORIDE 0.9% 500 ML IV ONE (04:35)
[2019-04-26 04:42] LABS: Eosinophils # (auto) 0.01 K/uL (0-0.5); Eosinophils % (auto) 0.2 %; Immature Granulocytes # (auto) 0.18 K/uL (0.00-0.02); Immature Granulocytes % (auto) 4.4 %; Lymphocytes # (auto) 1.26 K/uL (1.2-3.4); Lymphocytes % (auto) 31.1 %; Mean Platelet Volume 8.5 fL (7.4-10.4); Monocytes % (auto) 14.8 %; Neutrophils % (auto) 49.5 %; Platelet Count 112 K/uL (130-400); Platelet Estimate Normal (Normal)
[2019-04-26] MEDS ORDERED: DEXAMETHASONE SOD PHOSPHATE 10 MG in SYRINGE 0 ML IV STA (05:51)
[2019-04-26] MEDS ORDERED: DEXAMETHASONE **PF** INJ 10 MG/ML VIAL IV STA (05:53)
--- NOTE | 2019-04-26 06:12 | Emergency Department Note ---
Entered by Steffi Moore acting as a scribe for Mignon Torres DO History of Present Illness General Chief complaint: Weakness Stated complaint: WEAKNESS Time Seen by Provider: 04/26/19 03:42 Source: patient and family () History of Present Illness Onset (ago): hour(s) (10) Location: head (general) Pain Consistency: + other (episode) Quality: + other (seizure) Associated symptoms: + denies other symptoms (abdominal pain), + confusion, + weakness and + other (incontinence); no headaches The patient is a 73 year old female who presents to the Emergency Room with complaints of an episode of a seizure that occurred 10 hours ago. The patient's reports he gave the patient .5 mg of Ativan. He states the seizure did not stop so he gave her .5 more mg of Ativan. The patient's notes he gave the patient her usual Depakote and Keppra after her seizure ended as it was time for her normal medication. He states the patient then fell asleep. The patient's states she woke up 2.5 hours ago very weak and incontinent. He states the patient has been experiencing increased weakness and longer periods of confusion over the past two weeks. He notes with a lot of assistance the patient is able to go about 10 feet. He states she is very unstable however. He reports the patient was in the hospital a month ago for a seizure and was placed on steroids. He states the patient was taken off the medication too quickly two separate times which caused seizures. He notes the patient is now on a taper of the drug. The patient denies headache and abdominal pain. Home Medications Home Medications Medication Instructions Recorded Confirmed Type Incruse Ellipta 1 inh INHALATION QAM 04/11/18 04/26/19 History aspirin [Aspir-81] 81 mg PO QAM 04/11/18 04/26/19 History Breo Ellipta 1 inh INHALATION QAM 10/09/18 04/26/19 History divalproex 1,000 mg PO DAILY@0700 10/09/18 04/26/19 History divalproex 1,250 mg PO DAILY@1900 10/09/18 04/26/19 History furosemide 40 mg PO BIDM 10/09/18 04/26/19 History metoprolol succinate 25 mg PO QDD 10/09/18 04/26/19 History potassium chloride [Klor-Con M10] 10 meq PO TIDM 10/09/18 04/26/19 History diazepam [Diastat] 5 mg FL Q12H PRN #7 ea 10/11/18 04/26/19 Rx acetaminophen 325 mg PO Q6H PRN 03/18/19 04/26/19 History lorazepam [Ativan] 1 mg BUCCAL UD PRN 03/18/19 04/26/19 History dexamethasone 2 mg PO DAILY 04/26/19 04/26/19 History levetiracetam 500 mg PO AMPM 04/26/19 04/26/19 History multivitamin [Daily Multi-Vitamin] 1 tab PO DAILY 04/26/19 04/26/19 History warfarin [Jantoven] 5 mg PO QPM 04/26/19 04/26/19 History Allergies Allergy/AdvReac Type Severity Reaction Status Date / Time Sulfa (Sulfonamide Allergy Mild rash Verified 04/26/19 05:00 Antibiotics) alcohol Allergy Unknown Recovering Verified 04/26/19 05:00 Alcoholic lacosamide [From Vimpat] AdvReac Severe facial Verified 04/26/19 05:00 swelling and erythema Opioids - Morphine Analogues AdvReac Unknown HISTORY OF Verified 04/26/19 05:00 ADDICTION Past Med/Surg History Medical History AA (alcohol abuse) (Resolved) AVM (arteriovenous malformation) brain (Chronic) COPD (chronic obstructive pulmonary disease) (Chronic) Hematoma of right thigh (Resolved) History of DVT (deep vein thrombosis) (Chronic) 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 with INR goal of 2.0-3.0 (Chronic) Non-ischemic cardiomyopathy (Chronic) Obesity (BMI 30.0-34.9) (Chronic) Seizures (Chronic) Vasogenic edema (Resolved) Surgical History History of appendectomy (Chronic) History of cataract surgery (Chronic) Family History Mother Stroke Heart disease Social History Preferred Language: Korean Communication Ability: Impaired Visual Impairment: No 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 and A total of 10 systems reviewed and were otherwise negative Physical Exam Vital Signs Vital Signs - 24 hr 04/26/19 03:43 04/26/19 04:32 04/26/19 05:28 Temperature 37.1 C Temperature Source Oral Pulse Rate 92 H Pulse Rate [Finger] 87 93 H Pulse Rhythm Regular Pulse Rhythm [Finger] Regular Regular Pulse Strength Normal Pulse Strength [Finger] Normal Normal Respiratory Rate 19 20 20 Respiratory Effort / Characteristics Non-Labored Spontaneous Non-Labored Spontaneous Non-Labored Spontaneous Respiratory Depth Normal Normal Normal Respiratory Pattern Regular Regular Regular Blood Pressure 145/86 H Blood Pressure [Left Arm] 123/72 99/78 L Blood Pressure Mean 105 Blood Pressure Mean [Left Arm] 89 85 Blood Pressure Position Lying Blood Pressure Position [Left Arm] Lying Lying Pulse Oximetry 97 95 100 Oxygen Delivery Method Room Air Nasal Cannula Room Air Oxygen Flow Rate 2 Sepsis Recent Fever Within 48 Hours No Sepsis New/Unexplained Change in Mental Status No Sepsis Action Taken by Nursing No Action Required General: Slow to answer questions HEENT: Head - normocephalic and atraumatic. Pupils are equal, round, and reactive to light. Extraocular eye muscles are intact and sclera are anicteric. Nose - moist nasal mucosa without discharge. Mouth - moist buccal mucosa. Oropharynx is nonerythematous and there is no tonsillar exudate or edema noted. Neck: Supple; no JVD, nuchal rigidity, cervical lymphadenopathy, or auscultated bruits. Heart: Regular rate and rhythm. There is a normal S1 and S2 with no murmurs, clicks, or gallops appreciated. Lungs: Clear to auscultation bilaterally with no wheezes, rales, or rhonchi. Abdomen: Soft, completely nontender, nondistended, with good bowel sounds. There are no palpable pulsatile masses or hepatosplenomegaly. There is no guarding, rigidity, or rebound noted. Extremities: No evidence of cyanosis, clubbing, or edema. There are easily palpable peripheral pulses. Skin: Multiple areas of bruising Neuro:The patient is awake and alert, oriented to day, time, and place. Muscle strength is 4/5 in all 4 extremities. 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 There are no cerebellar signs. Course Course 0340: Past medical records reviewed. The patient was evaluated in room B09. A complete history and physical exam was performed. A twelve-lead EKG was obtained. Labs were drawn as above. The patient will go for CT scan of the brain. 0410: Upon reevaluation, I spoke with the patient's about my findings and results. 0430: Patient was given IV saline as she had an elevated BUN 0514: Upon reevaluation, I discussed findings and results with the patient and her . The patient seemed more awake and alert and quicker to answer questions. They verbalized agreement of the treatment plan. I spoke with Dr. Rowe of the [facility]. The patient will be evaluated for further management and care. Administered Medications Discontinued Medications Sodium Chloride (Nss) 500 mls @ 999 mls/hr IV .Q31M ONE Stop: 04/26/19 05:05 Last Admin: 04/26/19 04:42 Dose: 999 mls/hr Documented by: [id number] Medical Decision Making Differential Diagnosis Differential diagnosis: seizure, generalized weakness from chronic illness, anemia, supratherapeutic anticonvulsant levels Medical Records Attestation: I reviewed the patient's medical records. Home Medications Current Medication List: was personally reviewed by me Laboratory Data Attestation: I reviewed the patient's lab results. Result diagrams: 04/26/19 03:53 04/26/19 03:53 Lab Results 04/26/19 04/26/19 04/26/19 Range/Units 03:53 03:53 03:53 WBC 4.05 L (4.8-10.8) K/uL RBC 3.53 L (4.2-5.4) M/uL Hgb 11.0 L (12.0-16.0) g/dL Hct 35.2 L (37-47) % MCV 99.7 (80-100) fL MCH 31.2 (25-34) pg MCHC 31.3 L (32-36) g/dL RDW Std Deviation 64.4 H (36.4-46.3) fL RDW Coeff of [place] 18.0 H (11.5-14.5) % Plt Count 112 L (130-400) K/uL MPV 8.5 (7.4-10.4) fL Immature Gran % (Auto) 4.4 % Neut % (Auto) 49.5 % Lymph % (Auto) 31.1 % [place] % (Auto) 14.8 % Eos % (Auto) 0.2 % Baso % (Auto) 0.0 % Immature Gran # (Auto) 0.18 H (0.00-0.02) K/uL Neut # (Auto) 2.00 (1.4-6.5) K/uL Lymph # (Auto) 1.26 (1.2-3.4) K/uL [place] # (Auto) 0.60 H (0.11-0.59) K/uL Eos # (Auto) 0.01 (0-0.5) K/uL Baso # (Auto) 0.00 (0-0.2) K/uL Platelet Estimate Normal (Normal) PT (9.0-12.0) Seconds INR (0.9-1.1) Sodium 143 (136-145) mmol/L Potassium 3.9 (3.5-5.1) mmol/L Chloride 104 (98-107) mmol/L Carbon Dioxide 34 H (21-32) mmol/L Anion Gap 5.0 (3-11) BUN 45 H (7-18) mg/dl Creatinine 0.91 (0.6-1.2) mg/dl Est Cr Clr Drug Dosing 56.9 ml/min Est GFR ( Amer) 73.1 Est GFR (Non-Af Amer) 63.0 BUN/Creatinine Ratio 48.9 H (10-20) Glucose 79 (70-99) mg/dl Calcium 9.2 (8.5-10.1) mg/dl Magnesium 2.1 (1.8-2.4) mg/dl Total Bilirubin 0.3 (0.2-1) mg/dl AST 31 (15-37) U/L ALT 26 (12-78) U/L Alkaline Phosphatase 63 (45-117) U/L Total Protein 6.1 L (6.4-8.2) gm/dl Albumin 2.5 L (3.4-5.0) gm/dl Globulin 3.6 (2.5-4.0) gm/dl Albumin/Globulin Ratio 0.7 L (0.9-2) Urine Color Urine Appearance (Clear) Urine pH (4.5-7.5) Ur Specific [place] (1.000-1.030) Urine Protein (Negative) Urine Glucose (UA) (Negative) Urine Ketones (Negative) Urine Blood (Negative) Urine Nitrite (Negative) Urine Bilirubin (Negative) Urine Urobilinogen (Negative) Ur Leukocyte Esterase (Negative) Valproic Acid 104 H (50-100) mcg/ml 04/26/19 04/26/19 Range/Units 03:53 03:53 WBC (4.8-10.8) K/uL RBC (4.2-5.4) M/uL Hgb (12.0-16.0) g/dL Hct (37-47) % MCV (80-100) fL MCH (25-34) pg MCHC (32-36) g/dL RDW Std Deviation (36.4-46.3) fL RDW Coeff of [place] (11.5-14.5) % Plt Count (130-400) K/uL MPV (7.4-10.4) fL Immature Gran % (Auto) % Neut % (Auto) % Lymph % (Auto) % [place] % (Auto) % Eos % (Auto) % Baso % (Auto) % Immature Gran # (Auto) (0.00-0.02) K/uL Neut # (Auto) (1.4-6.5) K/uL Lymph # (Auto) (1.2-3.4) K/uL [place] # (Auto) (0.11-0.59) K/uL Eos # (Auto) (0-0.5) K/uL Baso # (Auto) (0-0.2) K/uL Platelet Estimate (Normal) PT 17.6 H (9.0-12.0) Seconds INR 1.8 H (0.9-1.1) Sodium (136-145) mmol/L Potassium (3.5-5.1) mmol/L Chloride (98-107) mmol/L Carbon Dioxide (21-32) mmol/L Anion Gap (3-11) BUN (7-18) mg/dl Creatinine (0.6-1.2) mg/dl Est Cr Clr Drug Dosing ml/min Est GFR ( Amer) Est GFR (Non-Af Amer) BUN/Creatinine Ratio (10-20) Glucose (70-99) mg/dl Calcium (8.5-10.1) mg/dl Magnesium (1.8-2.4) mg/dl Total Bilirubin (0.2-1) mg/dl AST (15-37) U/L ALT (12-78) U/L Alkaline Phosphatase (45-117) U/L Total Protein (6.4-8.2) gm/dl Albumin (3.4-5.0) gm/dl Globulin (2.5-4.0) gm/dl Albumin/Globulin Ratio (0.9-2) Urine Color Yellow Urine Appearance Clear (Clear) Urine pH 6.5 (4.5-7.5) Ur Specific [place] 1.013 (1.000-1.030) Urine Protein Negative (Negative) Urine Glucose (UA) Negative (Negative) Urine Ketones Negative (Negative) Urine Blood Negative (Negative) Urine Nitrite Negative (Negative) Urine Bilirubin Negative (Negative) Urine Urobilinogen Negative (Negative) Ur Leukocyte Esterase Negative (Negative) Valproic Acid (50-100) mcg/ml Imaging Data Radiologist's Impression: [facility]: CT HEAD: 10/09/2018 Similar appearance of the calcified lesion in the left parasagittal fro ntoparietal lobe. Interval increase of surrounding vasogenic edema. No significant mass effect or midline shift. No evidence of acute intracranial hemorrhage. Overall mild volume loss and small vessel disease. Radiologist: Tana Araya M.D. Study ready at 04:43 and initial results transmitted at 04:54 ADDENDUM-Added by Tana Araya M.D. on 04/26/2019 5:17AM Comparison from 03/22/19 available. Overall, no significant interval change of the left frontoparietal parasagittal calcified lesion and associated vasogenic edema. Vasogenic edema appears similar to the 03/22/19. ECG Data Attestation: I personally reviewed and interpreted this ECG as follows: Indication: + weakness Rate (beats per minute): 89 Rhythm: + sinus rhythm ECG ST segments: no ST depression and no ST elevation ECG Findings: + PACs; no PVCs Blood Pressure Blood Pressure Findings: Low blood pressure Blood Pressure Disposition: further management by hospitalist MDM Narrative The patient is a 73 year old female who presents to the Emergency Room with complaints of an episode of a seizure that occurred 10 hours ago. The patient has a history of seizures and takes Keppra and Depakote. The patient's explains that she had been admitted to the hospital a month ago with seizures and increasing vasogenic edema of the brain. The patient was started on fan roids at that time and had been doing well at the time of discharge. Unfortunately, over the past 7-10 days, the patient has become more weak to the point that she requires full assistance to get out of bed. He explains that the in-home physical therapist note that she has had a decline over the past couple of days. explains that he is unable to care for her safely at home at this time with this weakness. He explains that she has suffered a couple falls recently. I discussed the case with the [facility] Hospitalist and they will evaluate for further management. The patient's CT scan performed today compared to one from last month was essentially unchanged. There was no increased vasogenic edema. The patient's Keppra level and valproic acid level are currently pending. The patient had no seizure activity while here in the emergency department. Impression & Plan Seizure, Generalized weakness, Fall, Gait instability Discharge Plan Visit Data Chief Complaint: Weakness Stated Complaint: WEAKNESS ED Provider: Mignon Torres Discharge Problem: Seizure, Generalized weakness, Fall, Gait instability Patient Disposition: Being Evaluated by Hospitalist Forms Stand Alone Forms: My [facility] Prescriptions Prescriptions: No Action aspirin [Aspir-81] 81 mg Tablet,Delayed Release (Dr/Ec) 81 mg PO QAM RF: 0 Incruse Ellipta 62.5 mcg/actuation Blister With Device 1 inh INHALATION QAM RF: 0 divalproex 500 mg Tablet Extended Release 24 Hr 1,250 mg PO DAILY@1900 RF: 0 Breo Ellipta 200-25 mcg/dose Blister With Device 1 inh INHALATION QAM RF: 0 furosemide 40 mg tablet 40 mg PO BIDM RF: 0 divalproex 500 mg tablet extended release 24 hr 1,000 mg PO DAILY@0700 RF: 0 metoprolol succinate 25 mg tablet extended release 24 hr 25 mg PO QDD RF: 0 potassium chloride [Klor-Con M10] 10 mEq tablet,ER particles/crystals 10 meq PO TIDM RF: 0 diazepam [Diastat] 2.5 mg kit 5 mg FL Q12H PRN (Reason: seizure ) Qty: 7 RF: 0 lorazepam [Ativan] 1 mg tablet 1 mg BUCCAL UD PRN (Reason: as needed for seizure) RF: 0 acetaminophen 325 mg Tablet 325 mg PO Q6H PRN (Reason: Pain) RF: 0 warfarin [Jantoven] 2.5 mg tablet 5 mg PO QPM RF: 0 levetiracetam 500 mg tablet 500 mg PO AMPM RF: 0 multivitamin [Daily Multi-Vitamin] Tablet 1 tab PO DAILY RF: 0 dexamethasone 2 mg Tablet 2 mg PO DAILY RF: 0 Referrals Referrals: Tanesha Ponce DO [Primary Care Provider] - Discharge Problem: Fall Qualifiers: Encounter type: subsequent encounter Qualified Code(s): W19.XXXD - Unspecified fall, subsequent encounter The scribe's documentation has been prepared under my direction and personally reviewed by me in its entirety. I confirm that the note above accurately reflects all work, treatment, procedures, and medical decision making performed by me.
[2019-04-26 06:13] LABS: Partial Thromboplastin Ratio 1.4; Partial Thromboplastin Time 38.8 Seconds (21.0-31.0)
[2019-04-26] MEDS ORDERED: WARFARIN SOD 5 MG TAB PO ONE (07:00)
--- NOTE | 2019-04-26 07:06 | CT Scan Report ---
CT head/brain wo con CT DOSE: 537.48 mGy.cm HISTORY: Mental status change eval for increased vasogenic edema TECHNIQUE: Multiaxial CT images of the head were performed without the use of intravenous contrast. A dose lowering technique was utilized adhering to the principles of ALARA. Comparison: 03/22/2019 Findings: Unchanged calcified left parasagittal mass. Surrounding vasogenic edema is considered uncha nged. There is no midline shift. No new or additional findings identified. There is no acute intracranial h emorrhage. The calvarium and skull base are intact. The ventricles and sulci are within normal limits . There is no mass, hematoma, midline shift, or acute infarct. Impression: 1. Unchanged exam compared to the prior study. 2. Calcified left parasagittal mass with surrounding vasogenic edema. 3. This finding is considered stable. The above report was generated using voice recognition software. It may contain grammatical, syntax or spelling errors. Electronically signed by: Immanuel Fernández M.D. 04/26/2019 7:04 AM
[2019-04-26] MEDS ORDERED: LORazepam 1 MG/2 ML VIAL IV PRN (08:57)
[2019-04-26] MEDS ORDERED: ACETAMINOPHEN 325 MG TAB PO PRN ×2 (08:57)
[2019-04-26] MEDS ORDERED: LACTATED RINGER'S 1,000 ML IV ONE (08:57)
[2019-04-26] MEDS ORDERED: PROMETHAZINE HCL 12.5 MG in SODIUM CHLORIDE 0.9% 50 ML IV PRN (08:57)
[2019-04-26] MEDS: ASPIRIN 81 MG ECTAB PO SCH (09:44)
[2019-04-26] MEDS: MULTIVITAMIN TAB PO SCH (09:44)
[2019-04-26] MEDS ORDERED: DEXAMETHASONE SOD PHOSPHATE 4 MG in SYRINGE 0 ML IV SCH (12:00)
[2019-04-26] MEDS: FLUTICASONE INH SCH (12:34)
[2019-04-26] MEDS: VILANTEROL INH SCH (12:34)
[2019-04-26] MEDS: UMECLIDINIUM BROMIDE INH SCH (12:35)
[2019-04-26] MEDS: [UNRECOGNIZED DRUG - OTHER] INH SCH (12:35)
--- NOTE | 2019-04-26 13:51 | Neurology Consultation ---
Date of Consultation April 26, 2019 Assessment & Plan (1) Seizure: 1. breakthrough seizure - currently speech and post ictal state does not seem as prolonged as her normal events 2. would not restart higher dose of steroids 2 more days of 2 mg per on her taper and then stop 3. Keppra was loaded at 1 g and increase to 1 g bid which may be too much of a jump for her decreased to 750 mg BID x 7 days then increase to 1 g BID 4. depakote 1000 mg 0700 and 1250 mg 1900 daily 5. Keppra level in 2 weeks in therapeutic will start taper of depakote to 1 g 0700 and 1g 1900 x 2 weeks then further taper if patient tolerates and has no additional seizures 6. CT head- no new vasoedema no new areas of question (2) Gait instability: 1. PT/OT- needs evaluated for further in patient rehab- patient and has refused in the past but this may be helpful at this time 2. continue to correct and lyte abnormalities 3. Supervising Physician Co-Signing Physician Notes I have seen and discussed above patient with Dr Karena Lovell, neurology Patient seen and examined with Karena Ford. The patient is known to me she has a history of a left hemisphere AVM which is status post stereotactic radiosurgery. 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 It sounds as if she had a simple partial seizure with right foot jerking last evening her gave her Ativan when she attempted to get up she was weak. Apparently she has been increasingly weak over the last 2 weeks. She admits to ongoing headache that is contralateral to the AVM. She had been on tapering doses of Decadron was due to go off tomorrow. I reviewed her CT of the head which shows a calcified mass in the left high parietal region with vasogenic edema which is unchanged compared to her prior imaging. Her labs were mostly notable for an elevated BUN relative to creatinine and a mildly low platelet count her Depakote level was approximately 110 and Keppra level is pending. On exam she is much more alert and awake and I seen her previously she is much less cushingoid. She follows some simple commands. No obvious field cut there is normal facial symmetry there is mild weakness of the right right upper extremity. Minimal decreased right rapid Old Gravity movements. Right lower extremity greater than antigravity left side fold mild tremor with intention Impression recent breakthrough of simple partial seizure. Is indicated to me that the dose of Keppra has not been increased as it was to be although Karena Ford has now ordered it to be increased to 750 mg twice daily. The plan is to once therapeutic try to taper the Depakote. This in part because of tremor and because monotherapy is preferable. Depakote level non-trough is mildly elevated we will check a trough level in the morning and optimize. This is likely contributing to her tremor or causing her tremor. I do not see any increase in vasogenic edema. Karena has written for the continued taper of Decadron it should be discontinued tomorrow. We will once again try to arrange a radiation oncology consultation for the evaluation and treatment of radiation necrosis. I believe the patient is generally weak from the immobilization and would benefit from inpatient therapy. Would recommend inpatient OT and PT as well as speech. If able would consider attempting orthostatic blood pressure and pulse for further evaluation of generalized weakness with standing given that she is chronically been on steroids i.e. if she adrenally suppressed. We will follow with you History of Present Illness Reason for Consultation: break through seizure and weakness Requesting Physician: Anam Peck MD Attending Physician: Anam Peck MD History of Present Illness Kathy is a 73 year old female who has a PMH- seizure disorder, gait instability, IVONNE, AF, DVT, AVM, COPD who presented after a seizure which reports gave her 0.5 mg Ativan and then gave her usual doses of Depakote and Keppra and he felt the seizure ended. She has had progressive weakness over the past 2 weeks but she got up to go to the bathroom that night and had an episode of profound weakness which she could not stand. he states the aids felt she has been getting weaker and more confused. She was in the hospital about a month ago for a seizure and was treated with steroids for what was thought to be vasoedema. She was decrease very slowly and is no longer on the steroids and the imaging has not changed. Currently she is wake and alert which is not her usual state after a seizure. denies CP, SOB, abdominal pain, N, V, swallowing issues, +increased right LE weakness. Allergies Allergy/AdvReac Type Severity Reaction Status Date / Time Sulfa (Sulfonamide Allergy Mild rash Verified 04/26/19 05:00 Antibiotics) alcohol Allergy Unknown Recovering Verified 04/26/19 05:00 Alcoholic lacosamide [From Vimpat] AdvReac Severe facial Verified 04/26/19 05:00 swelling and erythema Opioids - Morphine Analogues AdvReac Unknown HISTORY OF Verified 04/26/19 05:00 ADDICTION Home Medications Home Medications Medication Instructions Recorded Confirmed Type Incruse Ellipta 1 inh INHALATION QAM 04/11/18 04/26/19 History aspirin [Aspir-81] 81 mg PO QAM 04/11/18 04/26/19 History Breo Ellipta 1 inh INHALATION QAM 10/09/18 04/26/19 History divalproex 1,000 mg PO DAILY@0700 10/09/18 04/26/19 History divalproex 1,250 mg PO DAILY@1900 10/09/18 04/26/19 History furosemide 40 mg PO BIDM 10/09/18 04/26/19 History metoprolol succinate 25 mg PO QDD 10/09/18 04/26/19 History potassium chloride [Klor-Con M10] 10 meq PO TIDM 10/09/18 04/26/19 History diazepam [Diastat] 5 mg [place] Q12H PRN #7 ea 10/11/18 04/26/19 Rx acetaminophen 325 mg PO Q6H PRN 03/18/19 04/26/19 History lorazepam [Ativan] 1 mg BUCCAL UD PRN 03/18/19 04/26/19 History dexamethasone 2 mg PO DAILY 04/26/19 04/26/19 History levetiracetam 500 mg PO AMPM 04/26/19 04/26/19 History multivitamin [Daily Multi-Vitamin] 1 tab PO DAILY 04/26/19 04/26/19 History warfarin [Jantoven] 5 mg PO QPM 04/26/19 04/26/19 History Patient History Medical History AA (alcohol abuse) (Resolved) AVM (arteriovenous malformation) brain (Chronic) COPD (chronic obstructive pulmonary disease) (Chronic) Hematoma of right thigh (Resolved) History of DVT (deep vein thrombosis) (Chronic) 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 current occupational status: retired Other Information That Helps Us Care for You: No Feels Safe at Home: Yes Smoking Status: Former smoker Tobacco Type: cigarettes ; Cigarettes Per Day: 40 ; Do You Dip or Chew Tobacco: No ; Second Hand Exposure: No ; Hx Alcohol Use: No Hx Substance Use: No Physical Exam Physical Exam: Physical Exam: Constitutional:appearance over over nourished, healthy Ears, Nose, Mouth and Throat: mucous membranes moist, no injection and skin normal, eyes normal Cardiovascular: normal S-1 and S-2 and regular rate and rhythm Respiratory: course breath sounds, NC 3L Musculoskeletal: no peripheral edema and good distal pulses Skin: multiple areas of bruising on arms and R>L leg Eyes: extraocular muscles intact (EOMI) and pupils equal, round and reactive to light (PERRL) NEUROLOGIC EXAMINATION: Mental status: Alert and interactive Oriented to [facility] Oriented to person Speech clear one word answers Cranial Nerves right sided nasolabial fold flattening Reflexes: Deep tendon reflexes were symmetrical Sensory: no sensory deficits, to light and cool touch Gait/Stance: Posture lying in bed 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: 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4) M/uL Hgb 11.0 L (12.0-16.0) g/dL Hct 35.2 L (37-47) % MCHC 31.3 L (32-36) g/dL RDW Std Deviation 64.4 H (36.4-46.3) fL RDW Coeff of Delmer 18.0 H (11.5-14.5) % Plt Count 112 L (130-400) K/uL Immature Gran # (Auto) 0.18 H (0.00-0.02) K/uL [place] # (Auto) 0.60 H (0.11-0.59) K/uL PT (9.0-12.0) Seconds INR (0.9-1.1) APTT (21.0-31.0) Seconds Carbon Dioxide 34 H (21-32) mmol/L BUN 45 H (7-18) mg/dl BUN/Creatinine Ratio 48.9 H (10-20) Total Protein 6.1 L (6.4-8.2) gm/dl Albumin 2.5 L (3.4-5.0) gm/dl Albumin/Globulin Ratio 0.7 L (0.9-2) Valproic Acid 104 H (50-100) mcg/ml 04/26/19 04/26/19 Range/Units 03:53 03:53 WBC (4.8-10.8) K/uL RBC (4.2-5.4) M/uL Hgb (12.0-16.0) g/dL Hct (37-47) % MCHC (32-36) g/dL RDW Std Deviation (36.4-46.3) fL RDW Coeff of [place]mer (11.5-14.5) % Plt Count (130-400) K/uL Immature Gran # (Auto) (0.00-0.02) K/uL [place] # (Auto) (0.11-0.59) K/uL PT 17.6 H (9.0-12.0) Seconds INR 1.8 H (0.9-1.1) APTT 38.8 H (21.0-31.0) Seconds Carbon Dioxide (21-32) mmol/L BUN (7-18) mg/dl BUN/Creatinine Ratio (10-20) Total Protein (6.4-8.2) gm/dl Albumin (3.4-5.0) gm/dl Albumin/Globulin Ratio (0.9-2) Valproic Acid (50-100) mcg/ml Diagnostic Findings CT head- Unchanged exam compared to the prior study. Calcified left parasagittal mass with surrounding vasogenic edema. This finding is considered stable.
[2019-04-26] MEDS ORDERED: WARFARIN SOD 5 MG TAB PO SCH (16:00)
--- NOTE | 2019-04-26 16:09 | Hospitalist Progress Note ---
Date of Service April 26, 2019 Assessment & Plan (1) Breakthrough seizure: Cerebral vasogenic edema on CT H/O Cerebral AVM status post radiotherapy CT Head: Unchanged exam compared to the prior study. Calcified left parasagittal mass with surrounding vasogenic edema. Valproic Acid: 104 Keppra increased to 750 mg twice daily x 7 days and then plan to increase to 1 g twice daily Plan to be tapered Depakote as per nephrology Continue high-dose steroids for 2 more days and then taper Appreciate neurology input Continue neuro checks, seizure precautions, fall precautions Continue steroids for vasogenic edema Ativan PRN seizures Chronic respiratory failure Secondary to COPD On chronic home Oxygen No signs of exacerbation Continue home inhalers H/O PVD Past tobacco/alcohol abuse Continue aspirin Chronic anemia Chronic thrombocytopenia Stable Monitor CBC H/O DVT INR subtherapeutic INR:1.8 continue coumadin DVT Px: On Coumadin Code Status DNI/DNR Disposition Patient's family no longer able to care for the patient Case management consulted for discharge management Subjective Patient is seen and examined at bedside Patient is lethargic this morning, limited history Most of the history is obtained from the patient's spouse No seizure activity since hospitalization Reports generalized weakness Denies any chest pain, shortness of breath, dizziness, nausea, abdominal pain informs that he is no longer able to take care of the patient at home Review of Systems Review of Systems: All systems reviewed & are unremarkable except as noted in HPI & below Physical Exam Physical Exam: Physical Exam: Vitals signs as noted above General Appearance:Moderately built and nourished, no apparent distress, drowsy Head: normocephalic, Atraumatic, aphasia Eyes: normal inspection Neck: supple, Trachea midline Respiratory/Chest: Normal breath sounds, CTA Cardiovascular: S1, S2, No murmur Abdomen/GI:Soft, Non tender, Bowel sounds present Extremities/Musculoskelatal:normal inspection, LE edema Neurologic/Psych:grossly no focal neurological deficits Skin: normal color, warm Results & Data Vital Signs (Past 12 Hours) Vital Signs Temp Pulse Pulse Resp BP Pulse Ox 04/26/19 14:55 36.8 C 86 18 101/68 95 04/26/19 11:26 36.9 C 86 16 100/69 97 04/26/19 08:57 108 H 04/26/19 08:24 36.3 C L 92 H 20 118/79 91 04/26/19 07:30 87 18 98/64 L 96 04/26/19 06:58 91 H 15 117/65 96 04/26/19 06:16 93 H 20 125/67 97 04/26/19 05:28 93 H 20 99/78 L 100 04/26/19 04:32 87 20 123/72 95 Laboratory Results Short CBC 04/26/19 Range/Units 03:53 WBC 4.05 L (4.8-10.8) K/uL Hgb 11.0 L (12.0-16.0) g/dL Hct 35.2 L (37-47) % Plt Count 112 L (130-400) K/uL BMP 04/26/19 03:53 Sodium 143 Potassium 3.9 Chloride 104 Carbon Dioxide 34 H BUN 45 H Creatinine 0.91 Glucose 79 Calcium 9.2 Liver Function 04/26/19 Range/Units 03:53 Total Bilirubin 0.3 (0.2-1) mg/dl AST 31 (15-37) U/L ALT 26 (12-78) U/L Alkaline Phosphatase 63 (45-117) U/L Albumin 2.5 L (3.4-5.0) gm/dl Urine 04/26/19 Range/Units 03:53 Urine Color Yellow Urine Appearance Clear (Clear) Urine pH 6.5 (4.5-7.5) Ur Specific [place] 1.013 (1.000-1.030) Urine Protein Negative (Negative) Urine Glucose (UA) Negative (Negative)
[2019-04-26] MEDS: METOPROLOL SUCC 25MG EXT REL TAB PO SCH (16:29)
[2019-04-26] MEDS: levETIRAcetam 250 MG TAB PO SCH (18:44)
[2019-04-26] MEDS ORDERED: levETIRAcetam 500 MG TAB PO SCH (19:00)
[2019-04-27 06:16] LABS: Eosinophils # (auto) 0.01 K/uL (0-0.5); Eosinophils % (auto) 0.3 %; Hematocrit (blood only) 30.1 % (37-47); Hemoglobin 9.6 g/dL (12.0-16.0); Immature Granulocytes # (auto) 0.11 K/uL (0.00-0.02); Immature Granulocytes % (auto) 2.8 %; Lymphocytes # (auto) 1.15 K/uL (1.2-3.4); Lymphocytes % (auto) 29.1 %; Mean Corpuscular Hemoglobin 31.2 pg (25-34); Mean Corpuscular Hgb Conc 31.9 g/dL (32-36); Mean Corpuscular Volume 97.7 fL (80-100); Mean Platelet Volume 8.2 fL (7.4-10.4); Monocytes # (auto) 0.63 K/uL (0.11-0.59); Monocytes % (auto) 15.9 %; Neutrophils # (auto) 2.05 K/uL (1.4-6.5); Neutrophils % (auto) 51.9 %; Platelet Count 100 K/uL (130-400); RDW Coefficient of Variation 17.4 % (11.5-14.5); RDW Standard Deviation 61.6 fL (36.4-46.3); Red Blood Count 3.08 M/uL (4.2-5.4); White Blood Count 3.95 K/uL (4.8-10.8)
[2019-04-27] MEDS: levETIRAcetam 250 MG TAB PO SCH ×2 (06:22→18:48)
[2019-04-27 06:26] LABS: INR 3.2 (0.9-1.1); Prothrombin Time 30.3 Seconds (9.0-12.0)
[2019-04-27 06:52] LABS: BUN Creatinine Ratio 50.4 (10-20); Calcium 8.6 mg/dl (8.5-10.1); Creatinine Clr Calc Pharmacy 69.9 ml/min; Est GFR (African American) 93.8; Est GFR (Non-African American) 80.9; Potassium 4.2 mmol/L (3.5-5.1)
[2019-04-27] MEDS: FLUTICASONE INH SCH (09:00)
[2019-04-27] MEDS: VILANTEROL INH SCH (09:00)
[2019-04-27] MEDS: UMECLIDINIUM BROMIDE INH SCH (09:00)
[2019-04-27] MEDS: MULTIVITAMIN TAB PO SCH (09:00)
[2019-04-27] MEDS: [UNRECOGNIZED DRUG - OTHER] INH SCH (09:00)
[2019-04-27] MEDS: ASPIRIN 81 MG ECTAB PO SCH (09:01)
[2019-04-27] MEDS: dexAMETHasone 2 MG in SYRINGE 0 ML IV SCH (09:02)
[2019-04-27] MEDS ORDERED: DIVALPROEX EXTENDED RELEASE 500 MG TAB PO SCH (09:15)
--- NOTE | 2019-04-27 10:08 | Progress Note ---
DATE: 04/27/2019 SUBJECTIVE: I am seeing Mrs. Godinez in followup of a simple partial seizure with a generalized functional decline over the last several weeks. Her Depakote level which may have been close to a peak was 104 and after having been held 2 days, was 40s. She has not had any seizure activity. PHYSICAL EXAMINATION: She is awake and alert. She has some spontaneous word finding difficulty. She is oriented x2. Blood pressure 129/85, pulse 74, respiratory rate 20, temperature 36.8. There is no field cut. Mild flattening of the right nasolabial fold. Right upper extremity is near full with decreased rapid alternating movements. Right lower extremity approximately 3/5. 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 Discontinue Decadron over the next day. We have increased the Keppra to 750 b.i.d. Have decreased Depakote to 1000 in the morning and 1000 in the evening. That level of 104 is likely coming down from a peak but is modestly high and may be contributing to the patient's tremor. The patient's CT is unchanged and I explained this to the patient's , he was under the impression that the scan was showing a new area of abnormality. This does not appear to be the case. His has refused MRI in the past for further clarification. Once discharged, we will have her see radiation oncology to see if there is any treatment for radiation necrosis.
--- NOTE | 2019-04-27 15:43 | Hospitalist Progress Note ---
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 Calcified left parasagittal mass with surrounding vasogenic edema. Valproic Acid: 104>>39 Keppra increased to 750 mg twice daily x 7 days (Day # 2/7) and then plan to increase to 1 g twice daily Depakote decreased to 1gm BID Continue high-dose steroids for 2 more days an then STOP Appreciate neurology input Continue neuro checks, seizure precautions, fall precautions Ativan PRN seizures Needs follow-up with neurology and radiation oncology as outpatient Chronic respiratory failure Secondary to COPD On chronic home Oxygen No signs of exacerbation Continue home inhalers H/O PVD Past tobacco/alcohol abuse Continue aspirin Chronic anemia Chronic thrombocytopenia Stable Monitor CBC H/O DVT INR subtherapeutic INR:3.2 continue coumadin at reduced dose DVT Px: On Coumadin Code Status DNI/DNR Disposition Patient's family no longer able to care for the patient Case management to help with discharge planning nt consulted for discharge management Subjective Patient is seen and examined at bedside More alert, awake today Has dry cough but otherwise feels better Discussed with neurology today No seizure activity since hospitalization Denies any chest pain, shortness of breath, dizziness, nausea, abdominal pain Family at bedside Review of Systems Review of Systems: All systems reviewed & are unremarkable except as noted in HPI & below Physical Exam Physical Exam: Physical Exam: Vitals signs as noted above General Appearance:Moderately built and nourished, no apparent distress Head: normocephalic, Atraumatic, aphasia Eyes: normal inspection Neck: supple, Trachea midline Respiratory/Chest: Normal breath sounds, CTA Cardiovascular: S1, S2, No murmur Abdomen/GI:Soft, Non tender, Bowel sounds present Extremities/Musculoskelatal:normal inspection, LE edema Neurologic/Psych:grossly no focal neurological deficits Skin: normal color, warm Results & Data Vital Signs (Past 12 Hours) Vital Signs Temp Pulse Resp BP Pulse Ox 04/27/19 12:04 36.6 C 75 18 118/77 92 04/27/19 08:34 36.8 C 74 20 129/85 93 04/27/19 04:00 36.4 C L 71 18 122/82 95 Laboratory Results Short CBC 04/27/19 Range/Units 06:00 WBC 3.95 L (4.8-10.8) K/uL Hgb 9.6 L (12.0-16.0) g/dL Hct 30.1 L (37-47) % Plt Count 100 L (130-400) K/uL [facility] 04/27/19 06:00 Sodium 144 Potassium 4.2 Chloride 108 H Carbon Dioxide 31 BUN 37 H Creatinine 0.74 Glucose 82 Calcium 8.6
[2019-04-27] MEDS: WARFARIN SOD 1 MG TAB PO SCH (16:15)
[2019-04-27] MEDS: METOPROLOL SUCC 25MG EXT REL TAB PO SCH (16:15)
[2019-04-27] MEDS: DIVALPROEX EXTENDED RELEASE 500 MG TAB PO SCH (18:48)
[2019-04-28] MEDS ORDERED: OXYMETAZOLINE 0.05% 30 ML BTL ONE (05:13)
[2019-04-28 05:53] LABS: Hematocrit (blood only) 33.1 % (37-47); Hemoglobin 10.3 g/dL (12.0-16.0); Mean Corpuscular Hgb Conc 31.1 g/dL (32-36); Mean Corpuscular Volume 99.7 fL (80-100); RDW Coefficient of Variation 17.9 % (11.5-14.5); RDW Standard Deviation 65.3 fL (36.4-46.3); Red Blood Count 3.32 M/uL (4.2-5.4); White Blood Count 3.82 K/uL (4.8-10.8)
--- NOTE | 2019-04-28 06:09 | Communication Note ---
Date of Service: April 28, 2019 Patient noted to have transient epistaxis episode in a.m. CBC, PT/INR now. Hold aspirin, Coumadin for now. Will relay to AM provider.
[2019-04-28 06:17] LABS: INR 2.5 (0.9-1.1)
[2019-04-28 06:24] LABS: Basophils # (auto) 0.01 K/uL (0-0.2); Basophils % (auto) 0.3 %; Eosinophils # (auto) 0.02 K/uL (0-0.5); Eosinophils % (auto) 0.5 %; Immature Granulocytes # (auto) 0.09 K/uL (0.00-0.02); Immature Granulocytes % (auto) 2.4 %; Lymphocytes # (auto) 1.42 K/uL (1.2-3.4); Lymphocytes % (auto) 37.2 %; Mean Platelet Volume 8.1 fL (7.4-10.4); Monocytes # (auto) 0.61 K/uL (0.11-0.59); Neutrophils # (auto) 1.67 K/uL (1.4-6.5); Neutrophils % (auto) 43.6 %; Platelet Count 97 K/uL (130-400); Platelet Estimate Normal (Normal)
[2019-04-28 06:26] LABS: Calcium 9.1 mg/dl (8.5-10.1); Creatinine Clr Calc Pharmacy 71.1 ml/min; Est GFR (Non-African American) 83.7; Potassium 3.8 mmol/L (3.5-5.1)
[2019-04-28] MEDS: levETIRAcetam 250 MG TAB PO SCH ×2 (06:47→18:55)
[2019-04-28] MEDS: DIVALPROEX EXTENDED RELEASE 500 MG TAB PO SCH ×2 (06:47→18:54)
[2019-04-28] MEDS: FLUTICASONE INH SCH (08:35)
[2019-04-28] MEDS: [UNRECOGNIZED DRUG - OTHER] INH SCH (08:35)
[2019-04-28] MEDS: MULTIVITAMIN TAB PO SCH (08:35)
[2019-04-28] MEDS: UMECLIDINIUM BROMIDE INH SCH (08:35)
[2019-04-28] MEDS: dexAMETHasone 2 MG in SYRINGE 0 ML IV SCH (08:35)
[2019-04-28] MEDS: VILANTEROL INH SCH (08:35)
--- NOTE | 2019-04-28 11:46 | Progress Note ---
DATE: 04/28/2019 SUBJECTIVE: I am seeing Mrs. 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 The patient has not had any seizures since admission. Adjustments of Keppra and Depakote have been made. The patient indicates that she walked from bed to bathroom with assistance yesterday, although did not walk with therapy. PHYSICAL EXAMINATION: VITALS: Blood pressure 118/67, pulse 77, respiratory rate 16, temperature 36.6. She is awake and alert. Her spontaneous speech and language are mildly slow with some mild word finding difficulty. She is oriented to person and place. There is no visual field cut. No facial asymmetry. Right upper extremity is nearly full. There is no drift and there is normal rapid alternating movement. Right lower extremity is at least 3+. There is a mild flap as well as a moderate tremor with intention. IMPRESSION: Breakthrough seizure which appeared to be simple partial secondary to arteriovenous malformation with radiation necrosis. We have increased the dose of Keppra to 750 b.i.d. and decreased the dose of Depakote to 1000 twice a day. Ultimately, the plan will be to taper Depakote if possible, but that will be done as an outpatient. The patient has a mild flap, recent hepatic functions were normal. We will check an ammonia as Depakote can cause hyperammonemia. The patient appears close to baseline. I suspect she has had some functional decline, possibly related to immobility. Imaging of the brain does not show any worsening of radiation necrosis, although it is impossible to prove. As an outpatient, we will arrange for the patient to see radiation oncology to see if they can offer any additional treatments. Continue tapering of Decadron. We will follow with you.
[2019-04-28] MEDS: METOPROLOL SUCC 25MG EXT REL TAB PO SCH (16:23)
[2019-04-28] MEDS: WARFARIN SOD 1 MG TAB PO SCH (16:23)
--- NOTE | 2019-04-28 17:36 | Hospitalist Progress Note ---
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 Calcified left parasagittal mass with surrounding vasogenic edema. Valproic Acid: 104>>39 Keppra increased to 750 mg twice daily x 7 days (Day # 3/7) and then plan to increase to 1 g twice daily Depakote decreased to 1gm BID Completed high-dose steroids today Appreciate neurology input Continue neuro checks, seizure precautions, fall precautions Ativan PRN seizures Needs follow-up with neurology and radiation oncology as outpatient Transient epistaxis Aspirin on hold Monitor hemoglobin Chronic respiratory failure Secondary to COPD On chronic home Oxygen No signs of exacerbation Continue home inhalers Hyperammonemia Due to Depakote Ammonia levels: 35 We will give a dose of lactulose Recheck ammonia levels in a.m. H/O PVD Past tobacco/alcohol abuse Continue aspirin Chronic anemia Chronic thrombocytopenia Stable Monitor CBC H/O DVT INR subtherapeutic--resolved INR:2.5 continue coumadin at reduced dose DVT Px: On Coumadin Code Status DNI/DNR Disposition Patient's family no longer able to care for the patient Plan to discharge when placement available Subjective Patient is seen and examined at bedside Had mild transient epistaxis overnight Ammonia is slightly elevated, but no mental status change No seizure activity since hospitalization Denies any chest pain, shortness of breath, dizziness, nausea, abdominal pain No family at bedside Physical Exam Physical Exam: Physical Exam: Vitals signs as noted above General Appearance:Moderately built and nourished, no apparent distress Head: normocephalic, Atraumatic, aphasia Eyes: normal inspection Neck: supple, Trachea midline Respiratory/Chest: Normal breath sounds, CTA Cardiovascular: S1, S2, No murmur Abdomen/GI:Soft, Non tender, Bowel sounds present Extremities/Musculoskelatal:normal inspection, LE edema Neurologic/Psych:grossly no focal neurological deficits Skin: normal color, warm Results & Data Vital Signs (Past 12 Hours) Vital Signs Temp Pulse Resp BP BP Pulse Ox 04/28/19 16:17 82 107/71 108/67 04/28/19 15:11 36.9 C 80 20 85/56 L 97 04/28/19 12:34 37.1 C 84 16 87/61 L 94 04/28/19 07:56 36.6 C 77 16 118/67 95 Laboratory Results Short CBC 04/28/19 Range/Units 05:39 WBC 3.82 L (4.8-10.8) K/uL Hgb 10.3 L (12.0-16.0) g/dL Hct 33.1 L (37-47) % Plt Count 97 L (130-400) K/uL BMP 04/28/19 05:39 Sodium 145 Potassium 3.8 Chloride 109 H Carbon Dioxide 32 BUN 37 H Creatinine 0.72 Glucose 69 L Calcium 9.1
[2019-04-28] MEDS ORDERED: LACTULOSE SYRUP 20 GM/30 ML UDC PO ONE (18:00)
[2019-04-29] MEDS: DIVALPROEX EXTENDED RELEASE 500 MG TAB PO SCH ×2 (06:50→18:59)
[2019-04-29] MEDS: levETIRAcetam 250 MG TAB PO SCH ×2 (06:50→19:00)
[2019-04-29 07:32] LABS: Hematocrit (blood only) 30.6 % (37-47); Hemoglobin 9.7 g/dL (12.0-16.0); Mean Corpuscular Hemoglobin 31.4 pg (25-34); Mean Corpuscular Hgb Conc 31.7 g/dL (32-36); Mean Platelet Volume 7.9 fL (7.4-10.4); Platelet Count 102 K/uL (130-400); RDW Coefficient of Variation 17.8 % (11.5-14.5); RDW Standard Deviation 63.6 fL (36.4-46.3); Red Blood Count 3.09 M/uL (4.2-5.4)
[2019-04-29 07:38] LABS: INR 1.4 (0.9-1.1); Prothrombin Time 14.3 Seconds (9.0-12.0)
[2019-04-29 08:08] LABS: BUN Creatinine Ratio 40.9 (10-20); Calcium 8.6 mg/dl (8.5-10.1); Est GFR (African American) 102.3; Est GFR (Non-African American) 88.3; Potassium 4.1 mmol/L (3.5-5.1)
--- NOTE | 2019-04-29 08:14 | History & Physical Report ---
Date of Service April 26, 2019 History of Present Illness Primary Care Provider: Tanesha Ponce [place] [address] History & Physical Report Signed Patient: JORDAN MIDDLETON Admit Date: 04/26/19 MR#: [id number] Att Phy: Anam Peck MD Acct ID:[id number] Edda Phy: Tanesha Ponce DO Date: 1945Fam Phy: Age: 73Location: 2W Sex: F cc: ~ *NOTICE TO RECEIVING REPUBLICAN/AGENCY This information is strictly Confidential and protected under [place] law. [place] law prohibits you from making any further disclosure of this information unless further disclosure is expressly permitted by the written consent of the person to whom it pertains or is authorized by law. A general authorization for the release of medical or other information is not sufficient for this purpose. Hospital accepts no responsibility if the information is made available to any other person, INCLUDING THE PATIENT. Date of Service April 26, 2019 Assessment & Plan (1) Breakthrough seizure: Secondary to recurrent vasogenic edema secondary to cerebral AVM status post radiotherapy Supratherapeutic tomorrow a.m. chronic respiratory failure secondary to COPD on home O2,, status at baseline hx PVD as per records Chronic anemia, hemoglobin slightly better than baseline past tobacco/alcohol abuse chronic thrombocytopenia history DVT on Coumadin INR slightly subtherapeutic Medical telemetry Decadron IV for vasogenic edema causing breakthrough seizure Increase Keppra to 1 g BID for now Hold Depakote for now given supratherapeutic level Recheck Depakote level tomorrow a.m. Seizure precautions, Ativan as needed active seizure Neurology consult RE breakthrough seizure DVT prophylaxis. Coumadin INR goal between 2 and 3 DNR as per patient's previous wishes as per , Mr.Clyde Middleton. He requests updates from providers thru [id number]. Case discussed with Dr. Neri (neurologist on-call) who is in agreement with plan of care until seen by rounding specialist in a.m. Total critical care time was 45 minutes. History of Present Illness Chief Complaint: seizures as per Primary Care Provider: aTnesha Ponce DO History obtained from patient, family, and records. Limited history from patient secondary to disorientation. Medical history significant for seizure disorder, cerebral AVM status post radiotherapy, chronic respiratory failure secondary to COPD on home O2, hx PVD, past tobacco/alcohol abuse, chronic anemia (baseline hemoglobin of 9-10), Chronic thrombocytopenia,history DVT on Coumadin. Recent confinement last month for breakthrough seizure secondary to vasogenic edema from known cerebral AV malformation. Patient discharged on increased Keppra, Depakote doses; Decadron taper. Generalized weakness noted by the last 2 weeks. Some witnessed falling at home with legs giving out as per outpatient notes. Yesterday patient noted generalized achy headache symptoms. Around 6:30 PM last night, patient noted to have a convulsant by her with patient's left foot shaking. Patient a little more confused than usual after episode. Increase in usual weakness weakness on the left leg. Patient compliant with home AED Rx as per possible. Patient brought to the ER by EMS. Medical History as above Surgical History : Cataract surgery, vascular procedures, appendectomy Family History : Dementia, lung cancer, stroke Personal/Social history : Past tobacco/alcohol abuse as per records Allergies Allergy/AdvReac Type Severity Reaction Status Date / Time Sulfa (Sulfonamide Allergy Mild rash Verified 04/26/19 05:00 Antibiotics) alcohol Allergy Unknown Recovering Verified 04/26/19 05:00 Alcoholic lacosamide [From Vimpat] AdvReac Severe facial Verified 04/26/19 05:00 swelling and erythema Opioids - Morphine Analogues AdvReac Unknown HISTORY OF Verified 04/26/19 05:00 ADDICTION Home Medications Home Medications Medication Instructions Recorded Confirmed Type Incruse Ellipta 1 inh INHALATION QAM 04/11/18 04/26/19 History aspirin [Aspir-81] 81 mg PO QAM 04/11/18 04/26/19 History Breo Ellipta 1 inh INHALATION QAM 10/09/18 04/26/19 History divalproex 1,000 mg PO DAILY@0700 10/09/18 04/26/19 History divalproex 1,250 mg PO DAILY@1900 10/09/18 04/26/19 History furosemide 40 mg PO BIDM 10/09/18 04/26/19 History metoprolol succinate 25 mg PO QDD 10/09/18 04/26/19 History potassium chloride [Klor-Con M10] 10 meq PO TIDM 10/09/18 04/26/19 History diazepam [Diastat] 5 mg [place] Q12H PRN #7 ea 10/11/18 04/26/19 Rx acetaminophen 325 mg PO Q6H PRN 03/18/19 04/26/19 History lorazepam [Ativan] 1 mg BUCCAL UD PRN 03/18/19 04/26/19 History dexamethasone 2 mg PO DAILY 04/26/19 04/26/19 History levetiracetam 500 mg PO AMPM 04/26/19 04/26/19 History multivitamin [Daily Multi-Vitamin] 1 tab PO DAILY 04/26/19 04/26/19 History warfarin [Jantoven] 5 mg PO QPM 04/26/19 04/26/19 History Past Med/Surg History Medical History History of DVT (deep vein thrombosis) (Chronic) Hematoma of right thigh (Resolved) Non-ischemic cardiomyopathy (Chronic) Obesity (BMI 30.0-34.9) (Chronic) 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 with INR goal of 2.0-3.0 (Chronic) Vasogenic edema (Resolved) AVM (arteriovenous malformation) brain (Chronic) Seizures (Chronic) AA (alcohol abuse) (Resolved) COPD (chronic obstructive pulmonary disease) (Chronic) Surgical History History of appendectomy (Chronic) History of cataract surgery (Chronic) Family History Mother Stroke Heart disease Social History Preferred Language: Kazakh Communication Ability: Impaired Visual Impairment: No Limitations Real Estate Asset Manager Required: No Beliefs That Will Affect Care: None marital status: Current Living Situation: Spouse Current Living Situation Comment: [facility] current occupational status: retired Other Information That Helps Us Care for You: No Feels Safe at Home: Yes Smoking Status: Former smoker Tobacco Type: cigarettes ; Cigarettes Per Day: 40 ; Do You Dip or Chew Tobacco: No ; Second Hand Exposure: No ; Hx Alcohol Use: No Hx Substance Use: No Review of Systems Review of Systems: Could not be reliably obtained Physical Exam Physical Exam: GENERAL: Comfortable, lethargic, oriented to place, obese,, no respiratory distress, obese SKIN: Pallor , warm HEENT: Pale palpebral conjunctivae, no ptosis, dry buccal mucosa NECK : Supple, short neck, no tenderness CHEST : Decreased breath sounds , no tenderness HEART : RRR, no obvious murmurs ABDOMEN: distention, nontender EXTREMITIES : minimal LE swelling/no LE tenderness, no other conspicuous deformities noted NEUROLOGIC : Lethargic, oriented to place, no facial asymmetry, MMTS BUE 4/5, RLE 2/5, LLE 3/5, gait and stance not assessed Results & Data Laboratory Results Laboratory Results WBC 5.80 K/uL (4.8-10.8) 03/23/19 07:04 RBC 3.52 M/uL (4.2-5.4) L 03/23/19 07:04 Hgb 10.8 g/dL (12.0-16.0) L 03/23/19 07:04 Hct 34.2 % (37-47) L 03/23/19 07:04 MCV 97.2 fL (80-100) 03/23/19 07:04 MCH 30.7 pg (25-34) 03/23/19 07:04 MCHC 31.6 g/dL (32-36) L 03/23/19 07:04 RDW Std Deviation 53.9 fL (36.4-46.3) H 03/23/19 07:04 RDW Coeff of [place] 15.1 % (11.5-14.5) H 03/23/19 07:04 Plt Count 126 K/uL (130-400) L 03/23/19 07:04 MPV 7.9 fL (7.4-10.4) 03/23/19 07:04 Immature Gran % (Auto) 2.9 % 03/23/19 07:04 Neut % (Auto) 56.4 % 03/23/19 07:04 Lymph % (Auto) 31.0 % 03/23/19 07:04 [place] % (Auto) 9.5 % 03/23/19 07:04 Eos % (Auto) 0.0 % 03/23/19 07:04 Baso % (Auto) 0.2 % 03/23/19 07:04 Immature Gran # (Auto) 0.17 K/uL (0.00-0.02) H 03/23/19 07:04 Neut # (Auto) 3.27 K/uL (1.4-6.5) 03/23/19 07:04 Lymph # (Auto) 1.80 K/uL (1.2-3.4) 03/23/19 07:04 [place] # (Auto) 0.55 K/uL (0.11-0.59) 03/23/19 07:04 Eos # (Auto) 0.00 K/uL (0-0.5) 03/23/19 07:04 Baso # (Auto) 0.01 K/uL (0-0.2) 03/23/19 07:04 RBC Morphology Unremarkable 03/19/19 06:03 PT 16.5 Seconds (9.0-12.0) H 03/25/19 06:26 INR 1.7 (0.9-1.1) H 03/25/19 06:26 APTT 48.8 Seconds (21.0-31.0) H* 03/19/19 06:03 PTT Ratio 1.8 03/19/19 06:03 VBG pH 7.49 (7.36-7.41) H 03/21/19 06:03 VBG pH Cancelled 03/21/19 06:03 VBG pCO2 47 mmHg (38-50) 03/21/19 06:03 VBG pO2 31 mmHg 03/21/19 06:03 VBG HCO3 35 mmol/L 03/21/19 06:03 VBG O2 Saturation < 60.0 % 03/21/19 06:03 VBG Base Excess 10.3 mEq/L 03/21/19 06:03 Barometric Pressure 719.7 mm/Hg 03/21/19 06:03 Sodium 142 mmol/L (136-145) 03/23/19 07:04 Potassium 4.1 mmol/L (3.5-5.1) 03/23/19 07:04 Chloride 104 mmol/L (98-107) 03/23/19 07:04 Carbon Dioxide 34 mmol/L (21-32) H 03/23/19 07:04 Anion Gap 4.0 (3-11) 03/23/19 07:04 BUN 41 mg/dl (7-18) H 03/23/19 07:04 Creatinine 0.94 mg/dl (0.6-1.2) 03/23/19 07:04 Est Cr Clr Drug Dosing 51.5 ml/min 03/23/19 07:04 Est GFR ( Amer) 70.2 03/23/19 07:04 Est GFR (Non-Af Amer) 60.6 03/23/19 07:04 BUN/Creatinine Ratio 43.6 (10-20) H 03/23/19 07:04 Glucose 93 mg/dl (70-99) 03/23/19 07:04 POC Glucose 71 (70-99) 03/25/19 07:33 Lactate 1.4 mmol/L (0.4-2.0) 03/20/19 12:15 Calcium 9.0 mg/dl (8.5-10.1) 03/23/19 07:04 Phosphorus 3.2 mg/dl (2.5-4.9) 03/18/19 19:07 Magnesium 2.5 mg/dl (1.8-2.4) H 03/23/19 07:04 Total Bilirubin 0.3 mg/dl (0.2-1) 03/21/19 06:03 AST 26 U/L (15-37) 03/21/19 06:03 ALT 14 U/L (12-78) 03/21/19 06:03 Alkaline Phosphatase 66 U/L (45-117) 03/21/19 06:03 Ammonia 12.4 umol/L (11-32) 03/20/19 12:15 Total Creatine Kinase 53 U/L (26-192) 03/20/19 12:15 NT-Pro-B Natriuret Pep 599 pg/ml (0-900) 03/18/19 19:07 Total Protein 5.5 gm/dl (6.4-8.2) L 03/21/19 06:03 Albumin 2.4 gm/dl (3.4-5.0) L 03/21/19 06:03 Globulin 3.1 gm/dl (2.5-4.0) 03/21/19 06:03 Albumin/Globulin Ratio 0.8 (0.9-2) L 03/21/19 06:03 Lipase 206 U/L (73-393) 03/18/19 19:07 TSH 0.992 uIu/ml (0.300-4.500) 03/20/19 12:15 Prolactin 5.99 ng/ml 03/20/19 12:15 Urine Color Yellow 03/18/19 18:30 Urine Appearance Clear (Clear) 03/18/19 18:30 Urine pH 8.0 (4.5-7.5) H 03/18/19 18:30 Ur Specific [place] 1.010 (1.000-1.030) 03/18/19 18:30 Urine Protein Negative (Negative) 03/18/19 18:30 Urine Glucose (UA) Negative (Negative) 03/18/19 18:30 Urine Ketones Negative (Negative) 03/18/19 18:30 Urine Blood Negative (Negative) 03/18/19 18:30 Urine Nitrite Negative (Negative) 03/18/19 18:30 Urine Bilirubin Negative (Negative) 03/18/19 18:30 Urine Urobilinogen Negative (Negative) 03/18/19 18:30 Ur Leukocyte Esterase Negative (Negative) 03/18/19 18:30 Valproic Acid 96 mcg/ml (50-100) 03/25/19 06:26 Levetiracetam 17.6 mcg/mL (12.0-46.0) 03/18/19 19:07 Ethyl Alcohol mg/dL < 3.0 mg/dl (0-3) 03/18/19 19:[address] head initial read no significant interval change of left frontoparietal parasagittal calcified lesion in associated vasogenic edema from comparison study taken March 22, 2019. EKG as per my interpretation rate 90, NSR, normal axis, ST depression laterally lateral leads Code Status & VTE Plan VTE Prophylaxis Plan VTE Prophylaxis will be ordered: Yes Signed By:<Electronically signed by Alvaro Rowe MD>04/26/19 1624 Created: 04/26/19 0628 The status of this report is Signed. Draft = Not yet reviewed or approved by Medical Physician. Signed = Reviewed and approved by Medical Physician. Allergies Allergy/AdvReac Type Severity Reaction Status Date / Time Sulfa (Sulfonamide Allergy Mild rash Verified 04/26/19 05:00 Antibiotics) alcohol Allergy Unknown Recovering Verified 04/26/19 05:00 Alcoholic lacosamide [From Vimpat] AdvReac Severe facial Verified 04/26/19 05:00 swelling and erythema Opioids - Morphine Analogues AdvReac Unknown HISTORY OF Verified 04/26/19 05:00 ADDICTION Home Medications Home Medications Medication Instructions Recorded Confirmed Type Incruse Ellipta 1 inh INHALATION QAM 04/11/18 04/26/19 History aspirin [Aspir-81] 81 mg PO QAM 04/11/18 04/26/19 History Breo Ellipta 1 inh INHALATION QAM 10/09/18 04/26/19 History divalproex 1,000 mg PO DAILY@0700 10/09/18 04/26/19 History divalproex 1,250 mg PO DAILY@1900 10/09/18 04/26/19 History furosemide 40 mg PO BIDM 10/09/18 04/26/19 History metoprolol succinate 25 mg PO QDD 10/09/18 04/26/19 History potassium chloride [Klor-Con M10] 10 meq PO TIDM 10/09/18 04/26/19 History diazepam [Diastat] 5 mg WY Q12H PRN #7 ea 10/11/18 04/26/19 Rx acetaminophen 325 mg PO Q6H PRN 03/18/19 04/26/19 History lorazepam [Ativan] 1 mg BUCCAL UD PRN 03/18/19 04/26/19 History dexamethasone 2 mg PO DAILY 04/26/19 04/26/19 History levetiracetam 500 mg PO AMPM 04/26/19 04/26/19 History multivitamin [Daily Multi-Vitamin] 1 tab PO DAILY 04/26/19 04/26/19 History warfarin [Jantoven] 5 mg PO QPM 04/26/19 04/26/19 History Past Med/Surg History Medical History AA (alcohol abuse) (Resolved) AVM (arteriovenous malformation) brain (Chronic) COPD (chronic obstructive pulmonary disease) (Chronic) Hematoma of right thigh (Resolved) History of DVT (deep vein 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) (Chronic) 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 with INR goal of 2.0-3.0 (Chronic) Non-ischemic cardiomyopathy (Chronic) Obesity (BMI 30.0-34.9) (Chronic) Seizures (Chronic) Vasogenic edema (Resolved) Surgical History History of appendectomy (Chronic) History of cataract surgery (Chronic) Family History Mother Stroke Heart disease Social History Preferred Language: Kazakh Communication Ability: Impaired Visual Impairment: No Limitations Real Estate Asset Manager Required: No Beliefs That Will Affect Care: None marital status: Current Living Situation: Spouse Current Living Situation Comment: [facility] current occupational status: retired Other Information That Helps Us Care for You: No Feels Safe at Home: Yes Smoking Status: Former smoker Tobacco Type: cigarettes ; Cigarettes Per Day: 40 ; Do You Dip or Chew Tobacco: No ; Second Hand Exposure: No ; Hx Alcohol Use: No Hx Substance Use: No Results & Data Vital Signs (Past 12 Hours) Vital Signs Temp Pulse Pulse Resp BP BP Pulse Ox 04/29/19 07:33 36.6 C 73 18 102/63 96 04/29/19 04:00 36.6 C 75 18 122/69 96 04/29/19 00:00 68 04/28/19 23:17 36.6 C 73 20 117/65 94 Code Status & VTE Plan VTE Prophylaxis Plan VTE Prophylaxis will be ordered: Yes
[2019-04-29] MEDS: POTASSIUM CHLORIDE 10 MEQ TABCR PO SCH ×3 (08:22→17:04)
[2019-04-29] MEDS: UMECLIDINIUM BROMIDE INH SCH (08:22)
[2019-04-29] MEDS: FUROSEMIDE 40 MG TAB PO SCH ×2 (08:22→17:04)
[2019-04-29] MEDS: MULTIVITAMIN TAB PO SCH (08:22)
[2019-04-29] MEDS: [UNRECOGNIZED DRUG - OTHER] INH SCH (08:22)
[2019-04-29] MEDS: FLUTICASONE INH SCH (08:23)
[2019-04-29] MEDS: VILANTEROL INH SCH (08:23)
--- NOTE | 2019-04-29 15:37 | Neurology Progress Note ---
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 seizure. Currently awaiting placement. - Continue Keppra 750 mg BID for now and agree with increasing to 1000 mg BID in 1-week - Continue home Depakote 1000 mg BID. - Outpatient follow up with Karena Ford PA-C Please call me with any further questions or concerns. Subjective Patient was seen and examined this afternoon. at bedside. Patient awake and talkative. Reports feeling better. Denies any seizures. Tremors improved. Patient is seen and examined at bedside Had mild transient epistaxis overnight Ammonia is slightly elevated, but no mental status change No seizure activity since hospitalization Denies any chest pain, shortness of breath, dizziness, nausea, abdominal pain No family at bedside Physical Exam Physical Exam: EXAM: Constitutional: appears chronically ill, obese, no distress Head and Face: normocephalic and atraumatic Eyes: normal lids, normal conjunctiva Neck: supple Respiratory: normal effort Cardiovascular: normal pulses Abdomen: non distended Skin: no rashes. Extremities: right upper extremity edema Psychiatric: flatl affect NEUROLOGIC EXAMINATION: Appearance: no acute distress Orientation: awake,oriented to person Attention: decreased Knowledge: poor Language: non fluent speech, appears to have mid aphasia with difficult with comprehension Speech: no dysarthria Cranial Nerves: CN 2 - no visual defect on confrontation and pupils round, equa CN 3, 4, 6 - extra-ocular movements intact CN 5 - facial sensation intact CN 7 - no facial asymmetry CN 8 - intact hearing CN 9, 10 - palate symmetric CN 11 - good shoulder shrug CN 12 - tongue midline Gait:deferred Coordination: tremor mild with oustretched hands, no ataxia with finger to nose Sensory: intact a, light touch, vibration and joint position Muscle Tone: normal Muscle exam: deconditioning throughout with right arma and leg weakness > left Reflexes: No clonus Results & Data Vital Signs (Past 12 Hours) Vital Signs Temp Pulse Pulse Resp BP BP Pulse Ox 04/29/19 14:38 36.7 C 87 20 100/67 99 04/29/19 12:03 36.6 C 81 22 107/72 97 04/29/19 07:33 36.6 C 73 18 102/63 96 04/29/19 07:00 66 04/29/19 04:00 36.6 C 75 18 122/69 96
[2019-04-29] MEDS: WARFARIN SOD 3 MG TAB PO SCH (16:10)
[2019-04-29] MEDS: METOPROLOL SUCC 25MG EXT REL TAB PO SCH (16:11)
--- NOTE | 2019-04-29 16:26 | Hospitalist Progress Note ---
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 Calcified left parasagittal mass with surrounding vasogenic edema. Valproic Acid: 104>>39 Keppra increased to 750 mg twice daily x 7 days (Day # 4/7) and then plan to increase to 1 g twice daily Depakote decreased to 1gm BID--Plan to taper off as outpatient Completed high-dose steroids--No plan to continue Decadron upon discharge Appreciate neurology input Continue neuro checks, seizure precautions, fall precautions Ativan PRN seizures Needs follow-up with neurology and radiation oncology as outpatient Continue current medications Transient epistaxis Aspirin on hold Monitor Hb No recurrence of bleeding Chronic respiratory failure Secondary to COPD On chronic home Oxygen No signs of exacerbation Continue home inhalers Hyperammonemia Due to Depakote Ammonia levels: 35>>11.7 Given a dose of lactulose H/O PVD Past tobacco/alcohol abuse Continue aspirin Chronic anemia Chronic thrombocytopenia Stable Monitor CBC H/O DVT INR subtherapeutic--resolved INR:1.4 continue coumadin--increased to 3mg today DVT Px: On Coumadin Code Status DNI/DNR Disposition Patient's family no longer able to care for the patient Plan to discharge when placement available Subjective Patient is seen and examined at bedside Reports LE edema No other complaints No recurrence of epistaxis No seizure overnight Denies any chest pain, shortness of breath, dizziness, nausea, abdominal pain Review of Systems Review of Systems: All systems reviewed & are unremarkable except as noted in HPI & below Physical Exam Physical Exam: Physical Exam: Vitals signs as noted above General Appearance:Moderately built and nourished, no apparent distress Head: normocephalic, Atraumatic, aphasia Eyes: normal inspection Neck: supple, Trachea midline Respiratory/Chest: Normal breath sounds, CTA Cardiovascular: S1, S2, No murmur Abdomen/GI:Soft, Non tender, Bowel sounds present Extremities/Musculoskelatal:normal inspection, LE edema Neurologic/Psych:grossly no focal neurological deficits, +Tremor Skin: normal color, warm Results & Data Vital Signs (Past 12 Hours) Vital Signs Temp Pulse Pulse Resp BP BP Pulse Ox 04/29/19 14:38 36.7 C 87 20 100/67 99 04/29/19 12:03 36.6 C 81 22 107/72 97 04/29/19 07:33 36.6 C 73 18 102/63 96 04/29/19 07:00 66 Laboratory Results Short CBC 04/29/19 Range/Units 07:22 WBC 4.40 L (4.8-10.8) K/uL Hgb 9.7 L (12.0-16.0) g/dL Hct 30.6 L (37-47) % Plt Count 102 L (130-400) K/uL BMP 04/29/19 07:22 Sodium 143 Potassium 4.1 Chloride 109 H Carbon Dioxide 30 BUN 27 H Creatinine 0.66 Glucose 74 Calcium 8.6
[2019-04-30] MEDS ORDERED: SODIUM CHLORIDE 0.9% 500 ML IV ONE (02:22)
[2019-04-30 03:15] LABS: Hematocrit (blood only) 28.1 % (37-47); Hemoglobin 8.9 g/dL (12.0-16.0); Mean Corpuscular Hemoglobin 31.3 pg (25-34); Mean Corpuscular Hgb Conc 31.7 g/dL (32-36); Mean Corpuscular Volume 98.9 fL (80-100); Nucleated RBC # (auto) 0.04 K/uL (0-0); RDW Coefficient of Variation 17.8 % (11.5-14.5); RDW Standard Deviation 63.7 fL (36.4-46.3); Red Blood Count 2.84 M/uL (4.2-5.4); White Blood Count 4.45 K/uL (4.8-10.8)
[2019-04-30 03:20] LABS: Mean Platelet Volume 7.5 fL (7.4-10.4); Platelet Count 98 K/uL (130-400)
[2019-04-30 03:29] LABS: INR 1.2 (0.9-1.1); Prothrombin Time 11.9 Seconds (9.0-12.0)
[2019-04-30 03:32] LABS: BUN Creatinine Ratio 43.4 (10-20); Calcium 8.2 mg/dl (8.5-10.1); Creatinine Clr Calc Pharmacy 75.6 ml/min; Est GFR (African American) 100.8; Magnesium 1.9 mg/dl (1.8-2.4); Potassium 4.1 mmol/L (3.5-5.1)
[2019-04-30 03:54] LABS: Basophils # (auto) 0.01 K/uL (0-0.2); Basophils % (auto) 0.2 %; Eosinophils # (auto) 0.03 K/uL (0-0.5); Eosinophils % (auto) 0.7 %; Immature Granulocytes # (auto) 0.12 K/uL (0.00-0.02); Immature Granulocytes % (auto) 2.7 %; Lymphocytes # (auto) 1.71 K/uL (1.2-3.4); Lymphocytes % (auto) 38.4 %; Monocytes # (auto) 0.59 K/uL (0.11-0.59); Monocytes % (auto) 13.3 %; Neutrophils # (auto) 1.99 K/uL (1.4-6.5); Neutrophils % (auto) 44.7 %; Polychromasia 1+
[2019-04-30] MEDS: levETIRAcetam 250 MG TAB PO SCH ×2 (07:01→19:02)
[2019-04-30] MEDS: DIVALPROEX EXTENDED RELEASE 500 MG TAB PO SCH ×2 (07:02→19:01)
[2019-04-30] MEDS: VILANTEROL INH SCH (08:25)
[2019-04-30] MEDS: FLUTICASONE INH SCH (08:25)
[2019-04-30] MEDS: [UNRECOGNIZED DRUG - OTHER] INH SCH (08:25)
[2019-04-30] MEDS: POTASSIUM CHLORIDE 10 MEQ TABCR PO SCH ×3 (08:25→16:59)
[2019-04-30] MEDS: MULTIVITAMIN TAB PO SCH (08:25)
[2019-04-30] MEDS: UMECLIDINIUM BROMIDE INH SCH (08:25)
[2019-04-30] MEDS: FUROSEMIDE 40 MG TAB PO SCH ×3 (08:25→16:59)
[2019-04-30] MEDS: WARFARIN SOD 3 MG TAB PO SCH (16:04)
[2019-04-30] MEDS: METOPROLOL SUCC 25MG EXT REL TAB PO SCH (16:05)
[2019-04-30] MEDS ORDERED: WARFARIN SOD 2 MG TAB PO ONE (17:59)
--- NOTE | 2019-04-30 18:03 | Hospitalist Progress Note ---
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 Calcified left parasagittal mass with surrounding vasogenic edema. Valproic Acid: 104>>39 Keppra increased to 750 mg twice daily x 7 days (Day # 5/7) and then plan to increase to 1 g twice daily Depakote decreased to 1gm BID--Plan to taper off as outpatient Completed high-dose steroids--No plan to continue Decadron upon discharge Appreciate neurology input Continue neuro checks, seizure precautions, fall precautions Ativan PRN seizures Needs follow-up with neurology and radiation oncology as outpatient Waiting for placement Transient epistaxis--Resolved Aspirin on hold Monitor Hb No recurrence of bleeding Chronic respiratory failure Secondary to COPD On chronic home Oxygen No signs of exacerbation Continue home inhalers Hypotension Monitoring blood pressure closely Asymptomatic May need to hold Lasix if low BP persists Hyperammonemia Due to Depakote Ammonia levels: 35>>11.7 Given a dose of lactulose H/O PVD Past tobacco/alcohol abuse Continue aspirin Chronic anemia Chronic thrombocytopenia Stable Monitor CBC H/O DVT INR subtherapeutic--resolved INR:1.2 Increase Coumadin to 5 mg today DVT Px: On Coumadin Code Status DNI/DNR Disposition Patient's family no longer able to care for the patient Plan to discharge when placement available Subjective Patient is seen and examined at bedside No new complaints No recurrence of epistaxis Blood pressure relatively low, asymptomatic No seizure activity since hospitalization Denies any chest pain, shortness of breath, dizziness, nausea, abdominal pain Waiting for placement Review of Systems Review of Systems: All systems reviewed & are unremarkable except as noted in HPI & below Physical Exam Physical Exam: Physical Exam: Vitals signs as noted above General Appearance:Moderately built and nourished, no apparent distress Head: normocephalic, Atraumatic, aphasia Eyes: normal inspection Neck: supple, Trachea midline Respiratory/Chest: Normal breath sounds, CTA Cardiovascular: S1, S2, No murmur Abdomen/GI:Soft, Non tender, Bowel sounds present Extremities/Musculoskelatal:normal inspection, LE edema, UE edema Neurologic/Psych:grossly no focal neurological deficits, +Tremor Skin: normal color, warm Results & Data Vital Signs (Past 12 Hours) Vital Signs Temp Pulse Pulse Resp BP Pulse Ox 04/30/19 15:44 37.0 C 91 H 18 89/55 L 94 04/30/19 11:50 36.4 C L 78 16 90/60 L 04/30/19 09:50 80/50 L 04/30/19 08:38 80 84/50 L 04/30/19 07:00 70 04/30/19 06:50 36.6 C 76 17 90/57 L 94 Laboratory Results Short CBC 04/30/19 Range/Units 03:06 WBC 4.45 L (4.8-10.8) K/uL Hgb 8.9 L (12.0-16.0) g/dL Hct 28.1 L (37-47) % Plt Count 98 L (130-400) K/uL BMP 04/30/19 03:06 Sodium 142 Potassium 4.1 Chloride 107 Carbon Dioxide 31 BUN 30 H Creatinine 0.69 Glucose 81 Calcium 8.2 L
[2019-05-01] MEDS: DIVALPROEX EXTENDED RELEASE 500 MG TAB PO SCH ×2 (07:03→19:00)
[2019-05-01] MEDS: levETIRAcetam 250 MG TAB PO SCH ×2 (07:04→18:59)
[2019-05-01 07:26] LABS: Hematocrit (blood only) 28.7 % (37-47); Hemoglobin 9.1 g/dL (12.0-16.0); Mean Corpuscular Hemoglobin 31.3 pg (25-34); Mean Corpuscular Hgb Conc 31.7 g/dL (32-36); Mean Corpuscular Volume 98.6 fL (80-100); Mean Platelet Volume 7.9 fL (7.4-10.4); Platelet Count 107 K/uL (130-400); RDW Coefficient of Variation 17.9 % (11.5-14.5); RDW Standard Deviation 64.7 fL (36.4-46.3); Red Blood Count 2.91 M/uL (4.2-5.4); White Blood Count 4.41 K/uL (4.8-10.8)
[2019-05-01 07:35] LABS: INR 1.1 (0.9-1.1); Prothrombin Time 11.4 Seconds (9.0-12.0)
[2019-05-01 07:52] LABS: Calcium 8.7 mg/dl (8.5-10.1); Creatinine Clr Calc Pharmacy 70.6 ml/min; Est GFR (Non-African American) 83.7; Potassium 3.7 mmol/L (3.5-5.1)
[2019-05-01] MEDS: MULTIVITAMIN TAB PO SCH (08:00)
[2019-05-01] MEDS: POTASSIUM CHLORIDE 10 MEQ TABCR PO SCH ×3 (08:00→16:52)
[2019-05-01] MEDS: FUROSEMIDE 40 MG TAB PO SCH ×2 (08:00→16:52)
[2019-05-01] MEDS: [UNRECOGNIZED DRUG - OTHER] INH SCH (08:01)
[2019-05-01] MEDS: FLUTICASONE INH SCH (08:01)
[2019-05-01] MEDS: VILANTEROL INH SCH (08:01)
[2019-05-01] MEDS: UMECLIDINIUM BROMIDE INH SCH (08:01)
--- NOTE | 2019-05-01 11:33 | Hospitalist Progress Note ---
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 There are plans for outpatient taper down Depakote on outpatient basis as per neurology -currently Keppar is 750 mg BID and will increase to 1 gram BID starting on 05/04/19 -Continue neuro checks, seizure precautions, fall precautions Ativan PRN if seizures -neurology commented that they will try to arrange outpatient radiation oncology appointments -outpatient appointments 05/08/2019 11:00 AM Provider Tanesha Ponce DO Department [facility] 06/06/2019 10:40 AM Provider Karena Ford PA-C Department Neurology [facility] Chronic respiratory failure -Secondary to COPD -On chronic home Oxygen -No signs of exacerbation -Continue home inhalers Transient epistaxis -Resolved Hypotension -low normotensive blood pressures -asymptomatic -continue same dose BID oral Lasix Hyperammonemia -ammonia was mildly elevated to 35 on 04/28/19 -attributed to Depakote -levels returned to normal as of 04/29/19, prior hospitalist documented 1 dose of lactulose -no further need for lactulose at this time -mental status is baseline History of Peripheral Vascular Disease -Continue aspirin Chronic anemia Chronic thrombocytopenia -stable hemoglobin and platelets History of DVT in the past -INR remains subtherapeutic -continue coumadin 5 mg daily for now and monitor INR DVT Px: -Coumadin, give coumadin and Lovenox 40 mg daily until INR is 2 to 3 if remains in hospital Code Status DNI/DNR Generalized weakness/Ambulatory Dysfunction Disposition: awaiting a bed to physical rehabilitation center or SNF Subjective Patient seen and examined this AM. her at the bedside. reports that lower extremity edema is improving. remains to have right upper extremity edema. denies lightheadedness or dizziness. no chest pain. no abdominal pain. no vomiting. reports normal bowel movements. denies problems with urination. recent ambulation is minimal. on nasal cannula. denies acute shortness of breath Review of Systems Review of Systems: All systems reviewed & are unremarkable except as noted in HPI & below Physical Exam Constitutional: comfortable Eyes: PERRL, conjunctivae normal, anicteric sclerae EOM intact bilaterally ENMT: external ear and nose normal, oropharynx normal Neck: normal visual inspection Respiratory: normal respiratory effort Cardiovascular: Rate/Rhythm: regular rate and regular rhythm Gastrointestinal (Abdomen): normal bowel sounds, soft, nontender, no hepatosplenomegaly Musculoskeletal: Head/Neck/Chest: normocephalic and head atraumatic right upper extremity edema, bilateral lower extremity edema Neurologic: PERRL, EOMI, accommodation nl, no face palsy, no dysarthria Psychiatric: A+Ox3, euthymic affect Results & Data Vital Signs (Past 12 Hours) Vital Signs Temp Pulse Pulse Resp BP Pulse Ox 05/01/19 11:18 36.3 C L 80 20 92/63 L 95 05/01/19 07:52 72 05/01/19 07:33 36.7 C 81 20 95/60 L 94 05/01/19 03:53 36.9 C 79 18 96/54 L 96 05/01/19 01:48 90 04/30/19 23:44 37.0 C 84 18 93/65 L 97
[2019-05-01] MEDS: ASPIRIN 81 MG CHEW PO SCH (12:25)
[2019-05-01] MEDS: ENOXAPARIN INJ 40 MG/0.4 ML SYR SQ SCH (14:00)
[2019-05-01] MEDS: METOPROLOL SUCC 25MG EXT REL TAB PO SCH (16:29)
[2019-05-01] MEDS: WARFARIN SOD 5 MG TAB PO SCH (16:29)
[2019-05-02] MEDS: DIVALPROEX EXTENDED RELEASE 500 MG TAB PO SCH ×2 (06:43→18:59)
[2019-05-02] MEDS: levETIRAcetam 250 MG TAB PO SCH ×2 (06:44→18:58)
[2019-05-02 07:58] LABS: INR 1.3 (0.9-1.1); Prothrombin Time 12.7 Seconds (9.0-12.0)
[2019-05-02] MEDS: POTASSIUM CHLORIDE 10 MEQ TABCR PO SCH ×3 (09:00→17:02)
[2019-05-02] MEDS: UMECLIDINIUM BROMIDE INH SCH (09:07)
[2019-05-02] MEDS: FUROSEMIDE 40 MG TAB PO SCH ×2 (09:07→17:01)
[2019-05-02] MEDS: [UNRECOGNIZED DRUG - OTHER] INH SCH (09:07)
[2019-05-02] MEDS: VILANTEROL INH SCH (09:08)
[2019-05-02] MEDS: ENOXAPARIN INJ 40 MG/0.4 ML SYR SQ SCH (09:08)
[2019-05-02] MEDS: FLUTICASONE INH SCH (09:08)
[2019-05-02] MEDS: MULTIVITAMIN TAB PO SCH (09:09)
[2019-05-02] MEDS: ASPIRIN 81 MG CHEW PO SCH (09:11)
--- NOTE | 2019-05-02 13:25 | Hospitalist Progress Note ---
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 There are plans for outpatient taper down Depakote on outpatient basis as per neurology -currently Keppar is 750 mg BID and will increase to 1 gram BID starting on 05/04/19 -Continue neuro checks, seizure precautions, fall precautions Ativan PRN if seizures -neurology commented that they will try to arrange outpatient radiation oncology appointments -outpatient appointments 05/08/2019 11:00 AM Provider Tanesha Ponce DO Department [facility] 06/06/2019 10:40 AM Provider Karena Ford PA-C Department Neurology [facility] Chronic respiratory failure -Secondary to COPD -On chronic home Oxygen -No signs of exacerbation -Continue home inhalers Transient epistaxis -Resolved Hypotension -low normotensive blood pressures -asymptomatic -on BID oral Lasix (AM Lasix was held because of low normotensive blood pressures on 05/02/19 AM) Hyperammonemia -ammonia was mildly elevated to 35 on 04/28/19 -attributed to Depakote -levels returned to normal as of 04/29/19, prior hospitalist documented 1 dose of lactulose -no further need for lactulose at this time -mental status is baseline History of Peripheral Vascular Disease -Continue aspirin Chronic anemia Chronic thrombocytopenia -stable hemoglobin and platelets History of DVT in the past -INR remains subtherapeutic -continue coumadin 5 mg daily for now and monitor INR DVT Px: -Coumadin, give coumadin and Lovenox 40 mg daily until INR is 2 to 3 if remains in hospital. INR 1.3 on 05/02/19 Code Status DNI/DNR Generalized weakness/Ambulatory Dysfunction Disposition: awaiting a bed to physical rehabilitation center or SNF Subjective Patient denies new symptoms. continues to be on nasal cannula oxygen. breathing comfortably. continues to have right upper extremity edema. no headache. no dizziness. no abdomen pain. Review of Systems Review of Systems: All systems reviewed & are unremarkable except as noted in HPI & below Physical Exam Constitutional: comfortable Eyes: PERRL, conjunctivae normal, anicteric sclerae EOM intact bilaterally ENMT: external ear and nose normal, oropharynx normal Neck: normal visual inspection Respiratory: normal respiratory effort Cardiovascular: Rate/Rhythm: regular rate and regular rhythm Gastrointestinal (Abdomen): normal bowel sounds, soft, nontender, no hepatosplenomegaly Musculoskeletal: Head/Neck/Chest: normocephalic and head atraumatic right upper extremity edema, some bilateral lower extremity edema Neurologic: PERRL, EOMI, accommodation nl, no face palsy, no dysarthria Psychiatric: A+Ox3, euthymic affect Results & Data Vital Signs (Past 12 Hours) Vital Signs Temp Pulse Pulse Resp BP BP Pulse Ox 05/02/19 11:34 37.1 C 81 18 93/62 L 97 05/02/19 09:12 94/62 L 05/02/19 08:07 36.7 C 75 18 93/63 L 98 05/02/19 06:19 76 05/02/19 04:21 36.7 C 79 18 98/66 L 95
[2019-05-02 15:58] VITALS: TEMP 98.1
[2019-05-02] MEDS: WARFARIN SOD 5 MG TAB PO SCH (16:05)
[2019-05-02] MEDS: METOPROLOL SUCC 25MG EXT REL TAB PO SCH (16:05)
[2019-05-03 00:01] VITALS: O2SAT 97
[2019-05-03] MEDS: levETIRAcetam 250 MG TAB PO SCH (06:44)
[2019-05-03] MEDS: DIVALPROEX EXTENDED RELEASE 500 MG TAB PO SCH (06:45)
[2019-05-03 07:16] LABS: INR 1.5 (0.9-1.1); Prothrombin Time 14.6 Seconds (9.0-12.0)
[2019-05-03 07:35] LABS: BUN Creatinine Ratio 37.2 (10-20); Calcium 8.7 mg/dl (8.5-10.1); Creatinine Clr Calc Pharmacy 71.2 ml/min; Est GFR (Non-African American) 83.7; Magnesium 1.9 mg/dl (1.8-2.4); Potassium 3.7 mmol/L (3.5-5.1)
[2019-05-03 07:38] LABS: Albumin Globulin Ratio 0.7 (0.9-2); Bilirubin,Total 0.3 mg/dl (0.2-1)
[2019-05-03 07:52] VITALS: BP 94/65; PULSE 75
[2019-05-03] MEDS: ASPIRIN 81 MG CHEW PO SCH (08:32)
[2019-05-03] MEDS: POTASSIUM CHLORIDE 10 MEQ TABCR PO SCH ×2 (08:33→12:54)
[2019-05-03] MEDS: MULTIVITAMIN TAB PO SCH (08:33)
[2019-05-03] MEDS: ENOXAPARIN INJ 40 MG/0.4 ML SYR SQ SCH (08:33)
[2019-05-03] MEDS: UMECLIDINIUM BROMIDE INH SCH (08:34)
[2019-05-03] MEDS: VILANTEROL INH SCH (08:34)
[2019-05-03] MEDS: [UNRECOGNIZED DRUG - OTHER] INH SCH (08:34)
[2019-05-03] MEDS: FLUTICASONE INH SCH (08:34)
[2019-05-03] MEDS: FUROSEMIDE 40 MG TAB PO SCH (08:40)
--- NOTE | 2019-05-03 12:36 | Hospitalist Progress Note ---
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 There are plans for outpatient taper down Depakote on outpatient basis as per neurology -on this hospital stay, patient has been on currently Keppra is 750 mg BID. and on discharge to be on Keppra 1000 mg BID as there are outpatient plans to taper down the Depakote -Patient's discharge medications divalproex 1000 mg BID, Keppra 1000 mg BID, sent electronically to [facility] [address], [place] [address], [id number], [place] for use by [facility] -Patient's appointment to primary care and neurology clinic -05/08/2019 11:00 AM Provider Tanesha Ponce DO Department [facility] -06/06/2019 10:40 AM Provider JOVANNI DiazC Department Neurology [facility] Chronic respiratory failure -Secondary to COPD -On chronic home Oxygen -No signs of exacerbation -Continue home inhalers Transient epistaxis -Resolved Hypotension -low normotensive blood pressures -asymptomatic -tolerates oral Lasix Hyperammonemia -ammonia was mildly elevated to 35 on 04/28/19 -attributed to Depakote -levels returned to normal as of 04/29/19, prior hospitalist documented 1 dose of lactulose -no further need for lactulose at this time -mental status is baseline History of Peripheral Vascular Disease -Continue aspirin Chronic anemia Chronic thrombocytopenia -stable hemoglobin and platelets History of DVT in the past -INR remains subtherapeutic -continue coumadin 5 mg daily DVT Px: -on Coumadin, had been on Lovenox 40 mg daily while coumadin has been subtherapeutic. INR is 1.5 on 05/03/19. 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 Patient denies new complaints. continues to be breathing on nasal cannula. denies shortness of breath. no chest pain. no abdominal pain. no nausea. AM furosemide was held. Patient did receive furosemide yesterday night. Review of Systems Review of Systems: All systems reviewed & are unremarkable except as noted in HPI & below Physical Exam Constitutional: comfortable Eyes: PERRL, conjunctivae normal, anicteric sclerae EOM intact bilaterally ENMT: external ear and nose normal, oropharynx normal Neck: normal visual inspection Respiratory: normal respiratory effort Cardiovascular: Rate/Rhythm: regular rate and regular rhythm Gastrointestinal (Abdomen): normal bowel sounds, soft, nontender, no hepatosplenomegaly Musculoskeletal: Head/Neck/Chest: normocephalic and head atraumatic Extremities: + upper extremity abnormal to inspection (left upper extremity edema) Neurologic: PERRL, EOMI, accommodation nl, no face palsy, no dysarthria Psychiatric: A+Ox3, euthymic affect Results & Data Vital Signs (Past 12 Hours) Vital Signs Temp Pulse Resp BP Pulse Ox 05/03/19 07:51 36.7 C 75 20 94/65 L 97
--- NOTE | 2019-05-03 12:44 | Discharge Summary ---
Date of Service May 03, 2019 Admission HPI Per Admitting [place] [address] History & Physical Report Signed Patient: JORDAN MIDDLETON Admit Date: 04/26/19 MR#: [id number] Att Phy: Anam Peck MD Acct ID:[id number] Edda Phy: Tanesha Ponce DO Date: 1945Fam Phy: Age: 73Location: 2W Sex: F cc: ~ *NOTICE TO RECEIVING LIBERTARIAN/AGENCY This information is strictly Confidential and protected under [place] law. [place] law prohibits you from making any further disclosure of this information unless further disclosure is expressly permitted by the written consent of the person to whom it pertains or is authorized by law. A general authorization for the release of medical or other information is not sufficient for this purpose. Hospital accepts no responsibility if the information is made available to any other person, INCLUDING THE PATIENT. Date of Service April 26, 2019 Assessment & Plan (1) Breakthrough seizure: Secondary to recurrent vasogenic edema secondary to cerebral AVM status post radiotherapy Supratherapeutic tomorrow a.m. chronic respiratory failure secondary to COPD on home O2,, status at baseline hx PVD as per records Chronic anemia, hemoglobin slightly better than baseline past tobacco/alcohol abuse chronic thrombocytopenia history DVT on Coumadin INR slightly subtherapeutic Medical telemetry Decadron IV for vasogenic edema causing breakthrough seizure Increase Keppra to 1 g BID for now Hold Depakote for now given supratherapeutic level Recheck Depakote level tomorrow a.m. Seizure precautions, Ativan as needed active seizure Neurology consult RE breakthrough seizure DVT prophylaxis. Coumadin INR goal between 2 and 3 DNR as per patient's previous wishes as per , Mr.Clyde Middleton. He requests updates from providers thru [phone]. Case discussed with Dr. Neri (neurologist on-call) who is in agreement with plan of care until seen by rounding specialist in a.m. Total critical care time was 45 minutes. History of Present Illness Chief Complaint: seizures as per Primary Care Provider: Tanesha Ponce DO History obtained from patient, family, and records. Limited history from patient secondary to disorientation. Medical history significant for seizure disorder, cerebral AVM status post radiotherapy, chronic respiratory failure secondary to COPD on home O2, hx PVD, past tobacco/alcohol abuse, chronic anemia (baseline hemoglobin of 9-10), Chronic thrombocytopenia,history DVT on Coumadin. Recent confinement last month for breakthrough seizure secondary to vasogenic edema from known cerebral AV malformation. Patient discharged on increased Keppra, Depakote doses; Decadron taper. Generalized weakness noted by the last 2 weeks. Some witnessed falling at home with legs giving out as per outpatient notes. Yesterday patient noted generalized achy headache symptoms. Around 6:30 PM last night, patient noted to have a convulsant by her with patient's left foot shaking. Patient a little more confused than usual after episode. Increase in usual weakness weakness on the left leg. Patient compliant with home AED Rx as per possible. Patient brought to the ER by EMS. Medical History as above Surgical History : Cataract surgery, vascular procedures, appendectomy Family History : Dementia, lung cancer, stroke Personal/Social history : Past tobacco/alcohol abuse as per records Allergies Allergy/AdvReac Type Severity Reaction Status Date / Time Sulfa (Sulfonamide Allergy Mild rash Verified 04/26/19 05:00 Antibiotics) alcohol Allergy Unknown Recovering Verified 04/26/19 05:00 Alcoholic lacosamide [From Vimpat] AdvReac Severe facial Verified 04/26/19 05:00 swelling and erythema Opioids - Morphine Analogues AdvReac Unknown HISTORY OF Verified 04/26/19 05:00 ADDICTION Home Medications Home Medications Medication Instructions Recorded Confirmed Type Incruse Ellipta 1 inh INHALATION QAM 04/11/18 04/26/19 History aspirin [Aspir-81] 81 mg PO QAM 04/11/18 04/26/19 History Breo Ellipta 1 inh INHALATION QAM 10/09/18 04/26/19 History divalproex 1,000 mg PO DAILY@0700 10/09/18 04/26/19 History divalproex 1,250 mg PO DAILY@1900 10/09/18 04/26/19 History furosemide 40 mg PO BIDM 10/09/18 04/26/19 History metoprolol succinate 25 mg PO QDD 10/09/18 04/26/19 History potassium chloride [Klor-Con M10] 10 meq PO TIDM 10/09/18 04/26/19 History diazepam [Diastat] 5 mg NC Q12H PRN #7 ea 10/11/18 04/26/19 Rx acetaminophen 325 mg PO Q6H PRN 03/18/19 04/26/19 History lorazepam [Ativan] 1 mg BUCCAL UD PRN 03/18/19 04/26/19 History dexamethasone 2 mg PO DAILY 04/26/19 04/26/19 History levetiracetam 500 mg PO AMPM 04/26/19 04/26/19 History multivitamin [Daily Multi-Vitamin] 1 tab PO DAILY 04/26/19 04/26/19 History warfarin [Jantoven] 5 mg PO QPM 04/26/19 04/26/19 History Past Med/Surg History Medical History History of DVT (deep vein thrombosis) (Chronic) Hematoma of right thigh (Resolved) Non-ischemic cardiomyopathy (Chronic) Obesity (BMI 30.0-34.9) (Chronic) nursing home current use of anticoagulants with INR goal of 2.0-3.0 (Chronic) Vasogenic edema (Resolved) AVM (arteriovenous malformation) brain (Chronic) Seizures (Chronic) AA (alcohol abuse) (Resolved) COPD (chronic obstructive pulmonary disease) (Chronic) Surgical History History of appendectomy (Chronic) History of cataract surgery (Chronic) Family History Mother Stroke Heart disease Social History Preferred Language: Micronesian Communication Ability: Impaired Visual Impairment: No Limitations Web Search Evaluator Required: No Beliefs That Will Affect Care: None marital status: Current Living Situation: Spouse Current Living Situation Comment: [facility] current occupational status: retired Other Information That Helps Us Care for You: No Feels Safe at Home: Yes Smoking Status: Former smoker Tobacco Type: cigarettes ; Cigarettes Per Day: 40 ; Do You Dip or Chew Tobacco: No ; Second Hand Exposure: No ; Hx Alcohol Use: No Hx Substance Use: No Review of Systems Review of Systems: Could not be reliably obtained Physical Exam Physical Exam: GENERAL: Comfortable, lethargic, oriented to place, obese,, no respiratory distress, obese SKIN: Pallor , warm HEENT: Pale palpebral conjunctivae, no ptosis, dry buccal mucosa NECK : Supple, short neck, no tenderness CHEST : Decreased breath sounds , no tenderness HEART : RRR, no obvious murmurs ABDOMEN: distention, nontender EXTREMITIES : minimal LE swelling/no LE tenderness, no other conspicuous deformities noted NEUROLOGIC : Lethargic, oriented to place, no facial asymmetry, MMTS BUE 4/5, RLE 2/5, LLE 3/5, gait and stance not assessed Results & Data Laboratory Results Laboratory Results WBC 5.80 K/uL (4.8-10.8) 03/23/19 07:04 RBC 3.52 M/uL (4.2-5.4) L 03/23/19 07:04 Hgb 10.8 g/dL (12.0-16.0) L 03/23/19 07:04 Hct 34.2 % (37-47) L 03/23/19 07:04 MCV 97.2 fL (80-100) 03/23/19 07:04 MCH 30.7 pg (25-34) 03/23/19 07:04 MCHC 31.6 g/dL (32-36) L 03/23/19 07:04 RDW Std Deviation 53.9 fL (36.4-46.3) H 03/23/19 07:04 RDW Coeff of [place]mer 15.1 % (11.5-14.5) H 03/23/19 07:04 Plt Count 126 K/uL (130-400) L 03/23/19 07:04 MPV 7.9 fL (7.4-10.4) 03/23/19 07:04 Immature Gran % (Auto) 2.9 % 03/23/19 07:04 Neut % (Auto) 56.4 % 03/23/19 07:04 Lymph % (Auto) 31.0 % 03/23/19 07:04 [place] % (Auto) 9.5 % 03/23/19 07:04 Eos % (Auto) 0.0 % 03/23/19 07:04 Baso % (Auto) 0.2 % 03/23/19 07:04 Immature Gran # (Auto) 0.17 K/uL (0.00-0.02) H 03/23/19 07:04 Neut # (Auto) 3.27 K/uL (1.4-6.5) 03/23/19 07:04 Lymph # (Auto) 1.80 K/uL (1.2-3.4) 03/23/19 07:04 [place] # (Auto) 0.55 K/uL (0.11-0.59) 03/23/19 07:04 Eos # (Auto) 0.00 K/uL (0-0.5) 03/23/19 07:04 Baso # (Auto) 0.01 K/uL (0-0.2) 03/23/19 07:04 RBC Morphology Unremarkable 03/19/19 06:03 PT 16.5 Seconds (9.0-12.0) H 03/25/19 06:26 INR 1.7 (0.9-1.1) H 03/25/19 06:26 APTT 48.8 Seconds (21.0-31.0) H* 03/19/19 06:03 PTT Ratio 1.8 03/19/19 06:03 VBG pH 7.49 (7.36-7.41) H 03/21/19 06:03 VBG pH Cancelled 03/21/19 06:03 VBG pCO2 47 mmHg (38-50) 03/21/19 06:03 VBG pO2 31 mmHg 03/21/19 06:03 VBG HCO3 35 mmol/L 03/21/19 06:03 VBG O2 Saturation < 60.0 % 03/21/19 06:03 VBG Base Excess 10.3 mEq/L 03/21/19 06:03 Barometric Pressure 719.7 mm/Hg 03/21/19 06:03 Sodium 142 mmol/L (136-145) 03/23/19 07:04 Potassium 4.1 mmol/L (3.5-5.1) 03/23/19 07:04 Chloride 104 mmol/L (98-107) 03/23/19 07:04 Carbon Dioxide 34 mmol/L (21-32) H 03/23/19 07:04 Anion Gap 4.0 (3-11) 03/23/19 07:04 BUN 41 mg/dl (7-18) H 03/23/19 07:04 Creatinine 0.94 mg/dl (0.6-1.2) 03/23/19 07:04 Est Cr Clr Drug Dosing 51.5 ml/min 03/23/19 07:04 Est GFR ( Amer) 70.2 03/23/19 07:04 Est GFR (Non-Af Amer) 60.6 03/23/19 07:04 BUN/Creatinine Ratio 43.6 (10-20) H 03/23/19 07:04 Glucose 93 mg/dl (70-99) 03/23/19 07:04 POC Glucose 71 (70-99) 03/25/19 07:33 Lactate 1.4 mmol/L (0.4-2.0) 03/20/19 12:15 Calcium 9.0 mg/dl (8.5-10.1) 03/23/19 07:04 Phosphorus 3.2 mg/dl (2.5-4.9) 03/18/19 19:07 Magnesium 2.5 mg/dl (1.8-2.4) H 03/23/19 07:04 Total Bilirubin 0.3 mg/dl (0.2-1) 03/21/19 06:03 AST 26 U/L (15-37) 03/21/19 06:03 ALT 14 U/L (12-78) 03/21/19 06:03 Alkaline Phosphatase 66 U/L (45-117) 03/21/19 06:03 Ammonia 12.4 umol/L (11-32) 03/20/19 12:15 Total Creatine Kinase 53 U/L (26-192) 03/20/19 12:15 NT-Pro-B Natriuret Pep 599 pg/ml (0-900) 03/18/19 19:07 Total Protein 5.5 gm/dl (6.4-8.2) L 03/21/19 06:03 Albumin 2.4 gm/dl (3.4-5.0) L 03/21/19 06:03 Globulin 3.1 gm/dl (2.5-4.0) 03/21/19 06:03 Albumin/Globulin Ratio 0.8 (0.9-2) L 03/21/19 06:03 Lipase 206 U/L (73-393) 03/18/19 19:07 TSH 0.992 uIu/ml (0.300-4.500) 03/20/19 12:15 Prolactin 5.99 ng/ml 03/20/19 12:15 Urine Color Yellow 03/18/19 18:30 Urine Appearance Clear (Clear) 03/18/19 18:30 Urine pH 8.0 (4.5-7.5) H 03/18/19 18:30 Ur Specific [place] 1.010 (1.000-1.030) 03/18/19 18:30 Urine Protein Negative (Negative) 03/18/19 18:30 Urine Glucose (UA) Negative (Negative) 03/18/19 18:30 Urine Ketones Negative (Negative) 03/18/19 18:30 Urine Blood Negative (Negative) 03/18/19 18:30 Urine Nitrite Negative (Negative) 03/18/19 18:30 Urine Bilirubin Negative (Negative) 03/18/19 18:30 Urine Urobilinogen Negative (Negative) 03/18/19 18:30 Ur Leukocyte Esterase Negative (Negative) 03/18/19 18:30 Valproic Acid 96 mcg/ml (50-100) 03/25/19 06:26 Levetiracetam 17.6 mcg/mL (12.0-46.0) 03/18/19 19:07 Ethyl Alcohol mg/dL < 3.0 mg/dl (0-3) 03/18/19 19:[address] head initial read no significant interval change of left frontoparietal parasagittal calcified lesion in associated vasogenic edema from comparison study taken March 22, 2019. EKG as per my interpretation rate 90, NSR, normal axis, ST depression laterally lateral leads Code Status & VTE Plan VTE Prophylaxis Plan VTE Prophylaxis will be ordered: Yes Signed By:<Electronically signed by Alvaro Rowe MD>04/26/19 1624 Created: 04/26/19 0628 The status of this report is Signed. Draft = Not yet reviewed or approved by Medical Physician. Signed = Reviewed and approved by Medical Physician. Principal Diagnosis Breakthrough seizure(recurrent seizures since history Cerebral AVM status post radiotherapy with vasogenic edema), Chronic respiratory failure, Chronic anemia, Chronic thrombocytopenia Discharge Exam Constitutional comfortable Eyes PERRL, conjunctivae normal, anicteric sclerae EOM intact bilaterally ENMT external ear and nose normal, oropharynx normal Neck normal visual inspection Respiratory normal respiratory effort Cardiovascular Rate/Rhythm: regular rate and regular rhythm Gastrointestinal (Abdomen) normal bowel sounds, soft, nontender, no hepatosplenomegaly Musculoskeletal Head/Neck/Chest: normocephalic and head atraumatic Extremities: + upper extremity abnormal to inspection (right upper extremity edema) Neurologic PERRL, EOMI, accommodation nl, no face palsy, no dysarthria Psychiatric A+Ox3, euthymic affect Discharge Data Allergies Allergy/AdvReac Type Severity Reaction Status Date / Time Sulfa (Sulfonamide Allergy Mild rash Verified 04/26/19 05:00 Antibiotics) alcohol Allergy Unknown Recovering Verified 04/26/19 05:00 Alcoholic lacosamide [From Vimpat] AdvReac Severe facial Verified 04/26/19 05:00 swelling and erythema Opioids - Morphine Analogues AdvReac Unknown HISTORY OF Verified 04/26/19 05:00 ADDICTION Consultations 04/26/19 05:24 ED Decision to Admit Stat 04/26/19 08:57 Consult Neurology Routine 04/26/19 12:03 Consult Case Management - Discharge Planning Routine Ordered Studies 04/26/19 04:07 CT head/brain wo con Urgent Hospital Course (1) Breakthrough seizure: -This is a patient with recurrent seizures since history Cerebral AVM status post radiotherapy with vasogenic edema -patient has completed outpatient steroid course -on this admission, outpatient Depakote was decreased Continue Depakote as 1000 mg BID for now. There are plans for outpatient taper down Depakote on outpatient basis as per neurology -on this hospital stay, patient has been on currently Keppra is 750 mg BID. and on discharge to be on Keppra 1000 mg BID as there are outpatient plans to taper down the Depakote -Patient's discharge medications divalproex 1000 mg BID, Keppra 1000 mg BID, sent electronically to [facility] [address], [place] [address], [place], [address], [place] for use by [facility] -Patient's appointment to primary care and neurology clinic -05/08/2019 11:00 AM Provider Tanesha Ponce DO Department [facility] -06/06/2019 10:40 AM Provider JOVANNI DiazC Department Neurology [facility] Chronic respiratory failure -Secondary to COPD -On chronic home Oxygen -No signs of exacerbation -Continue home inhalers Transient epistaxis -Resolved Hypotension -low normotensive blood pressures -asymptomatic -tolerates oral Lasix Hyperammonemia -ammonia was mildly elevated to 35 on 04/28/19 -attributed to Depakote -levels returned to normal as of 04/29/19, prior hospitalist documented 1 dose of lactulose -no further need for lactulose at this time -mental status is baseline History of Peripheral Vascular Disease -Continue aspirin Chronic anemia Chronic thrombocytopenia -stable hemoglobin and platelets History of DVT in the past -INR remains subtherapeutic -continue coumadin 5 mg daily DVT Px: -on Coumadin, had been on Lovenox 40 mg daily while coumadin has been subtherapeutic. INR is 1.5 on 05/03/19. On discharge Patient may continue to take coumadin alone as 5 mg daily and should have INR rechecked no later than 3 days after discharge Code Status DNI/DNR Generalized weakness/Ambulatory Dysfunction -Disposition: Patient is discharge to [facility] for physical rehabilitation after this hospital admission Discharge Diagnosis: Breakthrough seizure(recurrent seizures since history Cerebral AVM status post radiotherapy with vasogenic edema), Chronic respiratory failure, Chronic anemia, Chronic thrombocytopenia Total Time Total Time Spent Total Time Spent (In Minutes): 40 minutes Total Time Includes: Examination of the Patient, Discharge Planning, Medication Reconciliation and Communication With Other Providers Discharge Plan Discharge Items Patient Disposition: Transfer [facility] Reason For Visit: CEREBRAL EDEMA Discharge Diagnosis: Breakthrough seizure(recurrent seizures since history Cerebral AVM status post radiotherapy with vasogenic edema), Chronic respiratory failure, Chronic anemia, Chronic thrombocytopenia Condition on Discharge: Good Activity: Per Instructions section Non-emergency contact: Primary Care Provider and Neurologist Call non-emergency contact if: you have any medication questions Follow-up/Referrals: Tanesha Ponce DO [Primary Care Provider] - Diet: Heart Healthy Addtl Attending Provider Instructions: Patient is discharge to [facility] for physical r ehabilitation after this hospital admission -on this admission, outpatient Depakote was decreased Continue Depakote as 1000 mg BID for now. There are plans for outpatient taper down Depakote on outpatient basis as per neurology -on this hospital stay, patient has been on currently Keppra is 750 mg BID. and on discharge to be on Keppra 1000 mg BID as there are outpatient plans to taper down the Depakote -Patient's discharge medications divalproex 1000 mg BID, Keppra 1000 mg BID, sent electronically to [facility] [address] [place] [address], [address], [place] for use by [facility] -Patient's appointment to primary care and neurology clinic -05/08/2019 11:00 AM Provider Tanesha Ponce DO [facility] -06/06/2019 10:40 AM Provider Karena Ford PA-C Department Neurology [facility] Patient's appointment to primary care and neurology clinic 05/08/2019 11:00 AM Provider Tanesha Ponce DO Department [facility] 06/06/2019 10:40 AM Provider Karena Ford PA-C Department Neurology [facility] On discharge Patient may continue to take coumadin alone as 5 mg daily and should have INR rechecked no later than 3 days after discharge Pending Studies at Discharge: No Stand-Alone Forms: [facility] Skilled Items Patient informed of condition?: Yes DNR: Yes Discharge Level of Care: Skilled Communicable Disease: No Discharge Prognosis: Stable Lines: None Urinary Catheter: No Medications and DC Order Prescriptions: New divalproex 500 mg Tablet Extended Release 24 Hr 1,000 mg PO BID@0700,1900 30 Days Qty: 120 RF: 0 levetiracetam [Keppra] 250 mg Tablet 1,000 mg PO BID@0700,1900 30 Days Qty: 240 RF: 0 Continued aspirin [Aspir-81] 81 mg Tablet,Delayed Release (Dr/Ec) 81 mg PO QAM RF: 0 Incruse Ellipta 62.5 mcg/actuation Blister With Device 1 inh INHALATION QAM RF: 0 Breo Ellipta 200-25 mcg/dose Blister With Device 1 inh INHALATION QAM RF: 0 furosemide 40 mg tablet 40 mg PO BIDM RF: 0 metoprolol succinate 25 mg tablet extended release 24 hr 25 mg PO QDD RF: 0 potassium chloride [Klor-Con M10] 10 mEq tablet,ER particles/crystals 10 meq PO TIDM RF: 0 diazepam [Diastat] 2.5 mg kit 5 mg NC Q12H PRN (Reason: seizure ) Qty: 7 RF: 0 lorazepam [Ativan] 1 mg tablet 1 mg BUCCAL UD PRN (Reason: as needed for seizure) RF: 0 acetaminophen 325 mg Tablet 325 mg PO Q6H PRN (Reason: Pain) RF: 0 warfarin [Jantoven] 2.5 mg tablet 5 mg PO QPM RF: 0 multivitamin [Daily Multi-Vitamin] Tablet 1 tab PO DAILY RF: 0 Discontinued divalproex 500 mg Tablet Extended Release 24 Hr 1,250 mg PO DAILY@1900 RF: 0 divalproex 500 mg tablet extended release 24 hr 1,000 mg PO DAILY@0700 RF: 0 levetiracetam 500 mg tablet 500 mg PO AMPM RF: 0 dexamethasone 2 mg Tablet 2 mg PO DAILY RF: 0 Discharge Orders: Discharge Order (Routine); Ordered 05/03/19 Ordered By: Vaughn Shannon Admission Data Admit Date/Time: 04/26/19 06:36 Attending Provider: Vaughn Shannon Admit Provider: Alvaro Rowe Primary Care Provider: Tanesha Ponce Other Providers: [facility] ; [facility] ; [facility] ; Alvaro Rowe ; Karena Ford ; Augusto Neri Kathleen ; Claudio Connell
== END 2019-05-03 15:00 | DRG 100 ==
LOC: ED 03:39 → 2N 06:36 → SUATTDRO 06:36 → 2N 07:49

== ENCOUNTER 2023-09-26 11:07 | Inpatient (IN) ==
--- NOTE | 2023-09-26 11:38 | Emergency Department Note ---
Impression & Plan Hypoxia, Parainfluenza, Anemia ED Provider Note NAME: JORDAN MIDDLETON AGE: 78 SEX: F : 1945 ARRIVES VIA: Ambulance INFORMANT: Patient ED PROVIDER(S): Sawyer Min DO CHIEF COMPLAINT: shortness of breath HPI: Patient is a 78-year-old female with a past medical history of seizures, gait instability, IVONNE, AVM, COPD chronically on 2 L nasal cannula, who presents to the ER for shortness of breath. She notes this started on Monday following being discharged from [facility]. She admits to cough, congestion, runny nose, and a sore throat. No fevers. Denies any headache or change in vision. No chest pain. Denies any belly pain, nausea, vomiting, or diarrhea. No dysuria, urgency, or frequency. No other exacerbating or remitting factors. She does admit to swelling on her bilateral legs. ADDITIONAL HISTORY OBTAINED: Per HPI Chronic Medical/Social Conditions Affecting Care: Per HPI PAST MEDICAL HISTORY:See Below PAST SURGICAL HISTORY:See Below FAMILY HISTORY:See Below SOCIAL HISTORY:See Below HOME MEDICATIONS:See Below ALLERGIES:See Below VITALS:See Below PHYSICAL EXAMINATION: GENERAL: Sitting up in bed, alert, slightly ill-appearing, persistent cough, dyspneic with conversation EYE EXAM: normal conjunctiva. PERRL and EOM's grossly intact. OROPHARYNX: no exudate, no erythema, lips, buccal mucosa, and tongue normal and mucous membranes are moist NECK: supple, no nuchal rigidity, no adenopathy, non-tender LUNGS: Faint wheezing bilateral. Normal chest wall mechanics HEART: no murmurs, S1 normal and S2 normal ABDOMEN: abdomen soft, non-tender, normo-active bowel sounds, no masses, no rebound or guarding. UPPER EXTREMITIES: upper extremities are grossly normal. LOWER EXTREMITIES: Pitting edema in the bilateral legs NEURO EXAM: Normal sensorium, cranial nerves II-XII grossly intact, normal speech, no gross weakness of arms, no gross weakness of legs. MEDICAL DECISION MAKING: Patient is a 78-year-old female who presents ER for the above-stated complaint. IV was established blood was obtained. She is found to be hypoxic on her usual 2 L nasal cannula and was placed on 4 L. Labs show no significant leukocytosis. Mild anemia 11.4. BMP along with LFTs bilirubin was unremarkable. Troponin was negative. proBNP was unremarkable. UA was fairly unremarkable. Viral panel was positive for parainfluenza. Chest x-ray was unremarkable. Patient was given steroids and neb treatment. Updated bedside. Discussed case with the hospitalist for further evaluation management treatment. Consults/Care Managements Discussions: Per [facility] Triage Nursing notes reviewed. Limited review of prior medical records performed Vital Signs: reviewed and remarkable for hypoxic 87% on chronic 2 L nasal cannula. Placed on 4 L Differential diagnosis: Differential diagnoses includes but is not limited to pneumonia, bronchitis, COPD/Asthma exacerbation, pneumothorax, pulmonary embolism, congestive heart failure, acute coronary syndrome ER treatment provided: See below Diagnostics interpreted by me include EKG and cardiac monitoring as listed below: -Cardiac Monitoring: An order was placed for continuous cardiac monitoring. The monitor shows a rate of 80 with sinus rhythm. -ECG: Sinus rhythm rate 83 Normal axis Poor baseline QTc 413 -Laboratory studies:Interpreted by me as stated above in MDM and shown below. Imaging studies: Xrays: As interpreted by me: Portable AP upright 1 view of the chest shows no focal CTs show: none Procedures:none Critical Care: I have personally spent 35 minutes of critical care time in the direct management of this patient. This includes bedside care, interpretation of diagnostic studies, and testing, discussion with consultants, patient, and family members, and other required patient management activities. This 35 minutes is in excess of all separately billable procedures. Past Med/Surg History Medical History Infection due to parainfluenza virus 3 History of DVT (deep vein thrombosis) Hematoma of right thigh Non-ischemic cardiomyopathy Obesity (BMI 30.0-34.9) MCFP current use of anticoagulants with INR goal of 2.0-3.0 Vasogenic edema AVM (arteriovenous malformation) brain Seizures COPD (chronic obstructive pulmonary disease) AA (alcohol abuse) Surgical History H/O section History of appendectomy History of cataract surgery Family History Mother Stroke Heart disease Social History Smoking Status: Never smoker Tobacco Type: Cigarettes Cigarettes Per Day: 40; Second Hand Exposure: No; Do You Dip or Chew Tobacco: No; Tobacco Cessation Education Requested by Patient: No Hx Alcohol Use: No Hx Substance Use: No Preferred Language: [place] Communication Ability: Effective Communication Ability Comment: pt currently has expressive aphasia and is unable to follow commands Visual Impairment: No Limitations Mobile Mechanic Required: No Beliefs That Will Affect Care: None marital status: Current Living Situation: Spouse Current Living Situation Comment: home current occupational status: retired Other Information That Helps Us Care for You: No Feels Safe at Home: Yes Safety Concerns: Feels Safe At This Time Assistive Devices: Scooter/Electric Scooter Allergies Allergies Allergy/AdvReac Type Severity Reaction Status Date / Time ciprofloxacin Allergy Severe Seizure on Verified 09/26/23 15:36 file w/ [employer] Mail Order Sulfa (Sulfonamide Allergy Mild rash Verified 09/26/23 15:36 Antibiotics) alcohol Allergy Unknown Recovering Verified 09/26/23 15:36 Alcoholic lacosamide [From [facility]] AdvReac Severe facial Verified 09/26/23 15:36 swelling and erythema Opioids - Morphine Analogues AdvReac Unknown HISTORY OF Verified 09/26/23 15:36 ADDICTION Home Meds Home Medications Medication Instructions Recorded Confirmed umeclidinium 62.5 mcg/actuation 1 inh inhalation QAM 04/11/18 09/26/23 blister powder for inhalation (Incruse Ellipta) fluticasone furoate 200 1 inh inhalation QAM 10/09/18 09/26/23 mcg-vilanterol 25 mcg/dose inhalation powder (Breo Ellipta) metoprolol succinate 25 mg 25 mg PO QDD PRN SBP >=100 10/09/18 09/26/23 tablet,extended release 24 hr acetaminophen 325 mg tablet 325 mg PO Q6H PRN Pain 03/18/19 09/26/23 lorazepam 1 mg tablet (Ativan) 1 mg buccal DIRECTED PRN as 03/18/19 09/26/23 needed for seizure multivitamin (Daily Multi-Vitamin 1 tab PO DAILY 04/26/19 09/26/23 tablet) divalproex 500 mg tablet,delayed See Rx Instructions .Route .COMPLEX 07/30/19 09/26/23 release (Depakote) furosemide 40 mg tablet 40 mg PO DAILY 07/30/19 09/26/23 docusate sodium 100 mg capsule 0 mg PO QAM 12/10/20 09/26/23 duloxetine 20 mg capsule,delayed 20 mg PO QAM 12/10/20 09/26/23 release ferrous sulfate 325 mg (65 mg 325 mg PO DAILY 12/10/20 09/26/23 iron) tablet levetiracetam 1,000 mg tablet 1,000 mg PO BID 12/10/20 09/26/23 (Keppra) divalproex 250 mg tablet,extended See Rx Instructions .Route .COMPLEX 09/07/23 09/26/23 release 24 hr calcium carbonate 500 mg-vitamin 1 tab PO TIDM 09/26/23 09/26/23 D3 5 mcg (200 unit) tablet (Calcium 500 + D) clobazam 10 mg tablet 15 mg PO DAILY 09/26/23 09/26/23 diazepam 5 mg-7.5 mg-10 mg rectal 5 mg MN Q12H PRN Seizures 09/26/23 09/26/23 kit levetiracetam 500 mg tablet 500 mg PO BID 09/26/23 09/26/23 (Keppra) tramadol 50 mg tablet 50 mg PO Q8H PRN PAIN, SCALE (7-10) 09/26/23 09/26/23 Results & Data (ED) Vital Signs Vital Signs - 24 hr 09/26/23 10:57 09/26/23 11:15 09/26/23 11:26 Temperature 36.8 C 36.8 C Temperature Source Oral Oral Pulse Rate 86 84 Pulse Rate [Right Finger] 81 Pulse Rate from SpO2 Sensor Pulse Rhythm Regular Regular Respiratory Rate 17 12 12 Respiratory Effort / Characteristics Non-Labored Respiratory Depth Normal Blood Pressure 148/70 H Blood Pressure [Right Arm] 148/70 H Blood Pressure Mean 96 Blood Pressure Mean [Right Arm] 96 Pulse Oximetry 98 97 96 Oxygen Delivery Method Nasal Cannula Nasal Cannula Nasal Cannula Oxygen Flow Rate 4 4 4 Sepsis Recent Fever Within 48 Hours No Sepsis New/Unexplained Change in Mental Status N/A Sepsis Action Taken by Nursing No Action Required Oxygen Flow Rate - Titration Pulse Oximetry Post Tiitration 09/26/23 11:29 09/26/23 11:30 09/26/23 12:03 Temperature Temperature Source Pulse Rate 85 83 Pulse Rate [Right Finger] Pulse Rate from SpO2 Sensor Pulse Rhythm Respiratory Rate 18 Respiratory Effort / Characteristics Respiratory Depth Blood Pressure 148/70 H Blood Pressure [Right Arm] Blood Pressure Mean 96 Blood Pressure Mean [Right Arm] Pulse Oximetry 96 84 L Oxygen Delivery Method Nasal Cannula Nasal Cannula Oxygen Flow Rate 4 0 Sepsis Recent Fever Within 48 Hours Sepsis New/Unexplained Change in Mental Status Sepsis Action Taken by Nursing Oxygen Flow Rate - Titration 2 Pulse Oximetry Post Tiitration 87 L 09/26/23 12:05 09/26/23 12:10 09/26/23 12:20 Temperature Temperature Source Pulse Rate 102 H 101 H Pulse Rate [Right Finger] Pulse Rate from SpO2 Sensor 100 H 101 H Pulse Rhythm Respiratory Rate 16 17 Respiratory Effort / Characteristics Respiratory Depth Blood Pressure Blood Pressure [Right Arm] Blood Pressure Mean Blood Pressure Mean [Right Arm] Pulse Oximetry 87 L 95 Oxygen Delivery Method Nasal Cannula Oxygen Flow Rate 2 Sepsis Recent Fever Within 48 Hours Sepsis New/Unexplained Change in Mental Status Sepsis Action Taken by Nursing Oxygen Flow Rate - Titration 4 Pulse Oximetry Post Tiitration 96 09/26/23 12:30 09/26/23 12:30 09/26/23 12:40 Temperature Temperature Source Pulse Rate 98 H 102 H Pulse Rate [Right Finger] Pulse Rate from SpO2 Sensor 98 H 92 H Pulse Rhythm Respiratory Rate 15 17 Respiratory Effort / Characteristics Respiratory Depth Blood Pressure 126/87 Blood Pressure [Right Arm] Blood Pressure Mean 89 Blood Pressure Mean [Right Arm] Pulse Oximetry 94 Oxygen Delivery Method Oxygen Flow Rate Sepsis Recent Fever Within 48 Hours Sepsis New/Unexplained Change in Mental Status Sepsis Action Taken by Nursing Oxygen Flow Rate - Titration Pulse Oximetry Post Tiitration 09/26/23 12:50 09/26/23 13:00 09/26/23 13:00 Temperature Temperature Source Pulse Rate 92 H 97 H Pulse Rate [Right Finger] Pulse Rate from SpO2 Sensor 95 H 84 Pulse Rhythm Respiratory Rate 12 21 Respiratory Effort / Characteristics Respiratory Depth Blood Pressure 132/75 Blood Pressure [Right Arm] Blood Pressure Mean 110 Blood Pressure Mean [Right Arm] Pulse Oximetry 94 93 Oxygen Delivery Method Oxygen Flow Rate Sepsis Recent Fever Within 48 Hours Sepsis New/Unexplained Change in Mental Status Sepsis Action Taken by Nursing Oxygen Flow Rate - Titration Pulse Oximetry Post Tiitration 09/26/23 13:10 09/26/23 13:20 09/26/23 13:30 Temperature Temperature Source Pulse Rate 98 H 96 H 96 H Pulse Rate [Right Finger] Pulse Rate from SpO2 Sensor 80 91 H 88 Pulse Rhythm Respiratory Rate 13 18 24 Respiratory Effort / Characteristics Respiratory Depth Blood Pressure Blood Pressure [Right Arm] Blood Pressure Mean Blood Pressure Mean [Right Arm] Pulse Oximetry 93 93 95 Oxygen Delivery Method Oxygen Flow Rate Sepsis Recent Fever Within 48 Hours Sepsis New/Unexplained Change in Mental Status Sepsis Action Taken by Nursing Oxygen Flow Rate - Titration Pulse Oximetry Post Tiitration 09/26/23 13:31 09/26/23 13:31 09/26/23 13:40 Temperature Temperature Source Pulse Rate 104 H 104 H Pulse Rate [Right Finger] Pulse Rate from SpO2 Sensor 85 84 Pulse Rhythm Respiratory Rate 20 23 Respiratory Effort / Characteristics Respiratory Depth Blood Pressure 138/55 L Blood Pressure [Right Arm] Blood Pressure Mean 68 Blood Pressure Mean [Right Arm] Pulse Oximetry 92 90 Oxygen Delivery Method Oxygen Flow Rate Sepsis Recent Fever Within 48 Hours Sepsis New/Unexplained Change in Mental Status Sepsis Action Taken by Nursing Oxygen Flow Rate - Titration Pulse Oximetry Post Tiitration 09/26/23 13:52 09/26/23 14:00 09/26/23 14:00 Temperature Temperature Source Pulse Rate 101 H Pulse Rate [Right Finger] Pulse Rate from SpO2 Sensor 105 H 87 Pulse Rhythm Respiratory Rate 24 Respiratory Effort / Characteristics Respiratory Depth Blood Pressure 104/74 Blood Pressure [Right Arm] Blood Pressure Mean 89 Blood Pressure Mean [Right Arm] Pulse Oximetry 92 Oxygen Delivery Method Oxygen Flow Rate Sepsis Recent Fever Within 48 Hours Sepsis New/Unexplained Change in Mental Status Sepsis Action Taken by Nursing Oxygen Flow Rate - Titration Pulse Oximetry Post Tiitration 09/26/23 14:10 Temperature Temperature Source Pulse Rate 103 H Pulse Rate [Right Finger] Pulse Rate from SpO2 Sensor 95 H Pulse Rhythm Respiratory Rate 17 Respiratory Effort / Characteristics Respiratory Depth Blood Pressure Blood Pressure [Right Arm] Blood Pressure Mean Blood Pressure Mean [Right Arm] Pulse Oximetry Oxygen Delivery Method Oxygen Flow Rate Sepsis Recent Fever Within 48 Hours Sepsis New/Unexplained Change in Mental Status Sepsis Action Taken by Nursing Oxygen Flow Rate - Titration Pulse Oximetry Post Tiitration Laboratory Data 09/26/23 11:30 09/26/23 11:30 Lab Results 09/26/23 Range/Units 11:30 WBC 6.61 (4.8-10.8) K/ul RBC 3.41 L (4.20-5.40) M/uL Hgb 11.4 L (12.0-16.0) g/dl Hct 35.1 L (37.0-47.0) % MCV 102.9 H (80.0-100.0) fL MCH 33.4 (25.0-34.0) pg MCHC 32.5 (32.0-36.0) g/dL RDW Std Deviation 51.6 H (36.4-46.3) fL RDW Coeff of [place] 13.7 (11.5-14.5) % Plt Count 181 (130-400) K/uL MPV 9.1 L (9.4-12.4) fL Immature Gran % (Auto) 0.3 % Neut % (Auto) 68.2 % Lymph % (Auto) 18.6 % [place] % (Auto) 12.6 % Eos % (Auto) 0.0 % Baso % (Auto) 0.3 % Neut # (Auto) 4.51 (1.40-6.50) K/uL Lymph # (Auto) 1.23 (1.20-3.40) K/uL [place] # (Auto) 0.83 H (0.11-0.59) K/uL Eos # (Auto) 0.00 (0.00-0.50) K/uL Baso # (Auto) 0.02 (0.00-0.20) K/uL Immature Gran # (Auto) 0.02 (0.01-0.20) K/uL Sodium 141 (136-145) mmol/L Potassium 4.2 (3.5-5.1) mmol/L Chloride 101 (98-107) mmol/L Carbon Dioxide 34 H (21-32) mmol/L Anion Gap 6 (3-11) BUN 19 (6-23) mg/dl Creatinine 0.84 (0.6-1.2) mg/dl Est Cr Clr Drug Dosing 65.1 ml/min Est GFR ( Amer) 77.7 ml/min Est GFR (Non-Af Amer) 67.0 ml/min BUN/Creatinine Ratio 22.6 H (10-20) Glucose 97 (70-99(Fasting)) mg/dl Calcium 9.4 (8.6-10.3) mg/dl Total Bilirubin 0.3 (0.2-1.0) mg/dl AST 23 (13-39) U/L ALT 15 (7-52) U/L Alkaline Phosphatase 47 (34-104) U/L Troponin I High Sens 9.9 (0-14) pg/ml B-Natriuretic Peptide 82 (0-100) pg/ml Total Protein 6.5 (6.0-8.3) gm/dl Albumin 3.9 (3.4-5.0) gm/dl Globulin 2.6 (2.5-4.0) gm/dl Albumin/Globulin Ratio 1.5 (0.9-2) Lipase 22 (11-82) U/L Vitamin B12 640 (180-914) pg/ml Folate > 22.30 (>5.38) ng/ml Administered Medications Discontinued Medications Albuterol (Albuterol 0.083% Nebu Soln 3 Ml Vial) 5 mg NEB NOW STA; Protocol Stop: 09/26/23 11:35 Last Admin: 09/26/23 11:45 Dose: 5 mg Documented By: MYRON Furosemide (Furosemide 40 Mg/4 Ml Vial) 40 mg IV NOW STA Stop: 09/26/23 14:17 Last Admin: 09/26/23 14:30 Dose: 40 mg Documented By: MYRON Methylprednisolone (Methylprednisolone 125 Mg/2 Ml Vial) 60 mg IV NOW STA Stop: 09/26/23 11:35 Last Admin: 09/26/23 11:44 Dose: 60 mg Documented By: MYRON Imaging Data Radiologist's Impression: Chest X-Ray 09/26/23 11:19 XR chest 1V portable HISTORY: 78 years-old Female Chest pain, nonspecific COMPARISON: 12/10/2020 TECHNIQUE: AP view of the chest FINDINGS: Cardiac silhouette is enlarged. Atherosclerosis of the aorta. No pneumothorax, pleural effusion or overt pulmonary edema. Mild bibasilar densities suggest atelectasis versus scarring. Chronic interstitial coarsening. Bones appear grossly intact. IMPRESSION: No acute process. ACT 112: Negative or not required by law. The above report was generated using voice recognition software. It may contain grammatical, syntax or spelling errors. Electronically signed by: Boone Pedro M.D. 09/26/2023 11:50 AM Discharge Plan Visit Data Chief Complaint: Illness Stated Complaint: COUGH, SOB ED Provider: Sawyer Min Discharge Problem: Hypoxia, Parainfluenza, Anemia Patient Disposition: Admitted As Inpatient Discharge Instructions Interventions: ED Discharge Assessment Last Done: 09/26/23 16:19 Discharge Problem: Anemia Qualifiers: Anemia type: unspecified type Qualified Code(s): D64.9 - Anemia, unspecified
[2023-09-26] MEDS: methylPREDNISolone 125 MG/2 ML VIAL IV STA (11:44)
[2023-09-26] MEDS: ALBUTEROL 0.083% NEBU SOLN 3 ML VIAL NEB STA (11:45)
--- NOTE | 2023-09-26 11:52 | XRay Report ---
XR chest 1V portable HISTORY: 78 years-old Female Chest pain, nonspecific COMPARISON: 12/10/2020 TECHNIQUE: AP view of the chest FINDINGS: Cardiac silhouette is enlarged. Atherosclerosis of the aorta. No pneumothorax, pleural effusion or ov ert pulmonary edema. Mild bibasilar densities suggest atelectasis versus scarring. Chronic interstiti al coarsening. Bones appear grossly intact. IMPRESSION: No acute process. ACT 112: Negative or not required by law. The above report was generated using voice recognition software. It may contain grammatical, syntax o r spelling errors. Electronically signed by: Boone Pedro M.D. 09/26/2023 11:50 AM
[2023-09-26 11:53] LABS: Basophils # (auto) 0.02 K/uL (0.00-0.20); Basophils % (auto) 0.3 %; Hematocrit (blood only) 35.1 % (37.0-47.0); Hemoglobin 11.4 g/dl (12.0-16.0); Immature Granulocytes # (auto) 0.02 K/uL (0.01-0.20); Immature Granulocytes % (auto) 0.3 %; Lymphocytes # (auto) 1.23 K/uL (1.20-3.40); Lymphocytes % (auto) 18.6 %; Mean Corpuscular Hemoglobin 33.4 pg (25.0-34.0); Mean Corpuscular Hgb Conc 32.5 g/dL (32.0-36.0); Mean Corpuscular Volume 102.9 fL (80.0-100.0); Mean Platelet Volume 9.1 fL (9.4-12.4); Monocytes # (auto) 0.83 K/uL (0.11-0.59); Monocytes % (auto) 12.6 %; Neutrophils # (auto) 4.51 K/uL (1.40-6.50); Neutrophils % (auto) 68.2 %; Platelet Count 181 K/uL (130-400); RDW Coefficient of Variation 13.7 % (11.5-14.5); RDW Standard Deviation 51.6 fL (36.4-46.3); Red Blood Count 3.41 M/uL (4.20-5.40); White Blood Count 6.61 K/ul (4.8-10.8)
[2023-09-26 12:10] LABS: Albumin Level 3.9 gm/dl (3.4-5.0); Bilirubin,Total 0.3 mg/dl (0.2-1.0); Calcium 9.4 mg/dl (8.6-10.3); Potassium 4.2 mmol/L (3.5-5.1)
[2023-09-26 12:16] LABS: Albumin Globulin Ratio 1.5 (0.9-2); BUN Creatinine Ratio 22.6 (10-20); Creatinine Clr Calc Pharmacy 65.1 ml/min; Est GFR (African American) 77.7 ml/min; Globulin 2.6 gm/dl (2.5-4.0); Total Protein 6.5 gm/dl (6.0-8.3)
[2023-09-26 12:42] LABS: Adenovirus PCR Not Detected (NotDetected); Bordetella parapertussis PCR Not Detected (NotDetected); Bordetella pertussis PCR Not Detected (NotDetected); Chlamydia pneumoniae PCR Not Detected (NotDetected); Coronavirus 229E PCR Not Detected (NotDetected); Coronavirus CoV-2 (COVID19)PCR Not Detected (NotDetected); Coronavirus HKU1 PCR Not Detected (NotDetected); Coronavirus NL63 PCR Not Detected (NotDetected); Coronavirus OC43PCR Not Detected (NotDetected); Human Metapneumovirus PCR Not Detected (NotDetected); Influenza A PCR Not Detected (NotDetected); Influenza B PCR Not Detected (NotDetected); Mycoplasma pneumoniae PCR Not Detected (NotDetected); Parainfluenza Virus 1 PCR Not Detected (NotDetected); Parainfluenza Virus 2 PCR Not Detected (NotDetected); Parainfluenza Virus 3 PCR DETECTED (NotDetected); Parainfluenza Virus 4 PCR Not Detected (NotDetected); Respiratory Syncytial VirusPCR Not Detected (NotDetected); Rhinovirus/Enterovirus PCR Not Detected (NotDetected)
[2023-09-26 12:43] LABS: Troponin I High Sensitivity 9.9 pg/ml (0-14)
--- NOTE | 2023-09-26 13:21 | Electrocardiogram Report ---
Test Reason : Blood Pressure : / mmHG Vent. Rate : 083 BPM Atrial Rate : 083 BPM P-R Int : 182 ms QRS Dur : 090 ms QT Int : 352 ms P-R-T Axes : 063 000 040 degrees QTc Int : 413 ms Normal sinus rhythm Low voltage QRS Borderline ECG When compared with ECG of 07-SEP-2023 11:26, No significant change was found Confirmed by Shawn Crespo ([id number]) on 09/26/2023 1:20:41 PM Referred By: Confirmed By:Shawn Crespo
[2023-09-26] MEDS ORDERED: POLYETHYLENE (MIRALAX) 17 GM PACK PO PRN (14:15)
[2023-09-26] MEDS ORDERED: ONDANSETRON INJ 2 MG/ML 2 ML VIAL IV PRN (14:15)
[2023-09-26] MEDS ORDERED: ALUMINUM/MAGNESIUM SUSP 30 ML UDC PO PRN (14:15)
[2023-09-26] MEDS ORDERED: MAGNESIUM HYDROXIDE SUSP 30 ML UDC PO PRN (14:15)
--- NOTE | 2023-09-26 14:23 | History & Physical Report ---
Date of Service September 26, 2023 Assessment & Plan (1) Chronic respiratory failure with hypoxia: (2) Infection due to parainfluenza virus 3: (3) Seizure disorder: (4) Atrial fibrillation: (5) History of DVT (deep vein thrombosis): (6) Obesity (BMI 30.0-34.9): (7) [facility] current use of anticoagulants with INR goal of 2.0-3.0: (8) COPD (chronic obstructive pulmonary disease): (9) AA (alcohol abuse): (10) AVM (arteriovenous malformation) brain: (11) Generalized weakness: Plan Ms. Godinez is a 78 year old female that presents to the ED with cough and SOB that started on Monday night after she recently returned home from being discharged from [facility] on Saturday 09/23. Prior to her [facility] admission she was transferred to [facility] from [facility] after experiencing aphagia which was suspected to be secondary to her seizure history; she was transferred for continuos EEG. 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 Patient recently completed a 3-day course of Rocephin for treatment of UTI. Today she presents with shortness of breath SpO2 86 to 88%; wears 2 L supplemental O2 at home at baseline. Chest x-ray negative for acute cardiopulmonary disease. EKG without ischemic changes. Bio fire positive for parainfluenza 3. Patient has a known history of chronic hypoxemia respiratory failure. Additional past medical history includes COPD, PAD, history of seizures, history of AVM, A-fib not on anticoagulation, history of GIB, and history of DVT (not on any anticoagulation). Has followed with pulmonary in the past. No leukocytosis, otherwise electrolytes unremarkable, LFTs negative, BNP negative, troponin negative. Chest x-ray negative for acute cardiopulmonary disease however visual sensation of imaging is unavailable at the moment. EKG without ischemic changes. Patient denies headache, dizziness, lightheadedness, visual or auditory changes, chest pain, palpitations, abdominal pain or tenderness, nausea, vomiting, diarrhea. On examination patient appears frail and ill. Patient able to speak in complete sentences and is AAO x 4 but visibly weak and coughing persistently. Intermittent sounds of stridor. Bilateral lower extremities grossly swollen +4 pitting edema. Right calf tender. With known history of DVT which she reports has been years low threshold to add chest CT. Patient will be admitted for further evaluation and management of chronic hypoxemia respiratory failure in the setting of parainfluenza 3. Placed on droplet precautions, will add azithromycin plus Rocephin for broad-spectrum coverage and adjust based on blood and sputum culture results, continue IV steroids 40 mg Q8, add Mucinex, continuous O2, flutter valve and ISB for supportive treatment,will obtain bilateral Doppler ultrasound LE, PT/OT for continued rehabilitation. Acute on chronic hypoxemia respiratory failure: Parainfluenza 3: Acute No leukocytosis however given the complexity of her background and frail presentation will place on Rocephin plus azithromycin and adjust based on blood and sputum culture results Blood cultures ordered and pending Sputum culture ordered and pending Received Lasix 40 mg in ED Methylprednisone 125 given in ED; continue Solu-Medrol 40 mg every 8 IV Guaifenesin with codeine for symptom management Aspiration precautions Droplet precautions Incentive spirometry and flutter valve for supportive measures Consider pulmonary consultation if no improvement Seizure disorder: Chronic Takes Keppra 1500 mg PO BID Recently started on Onfi at [facility] 15 mg twice daily See above for further details from [facility] admission A-fib: On anticoagulation: History of DVT: Chronic Takes Metoprolol; continue Pain in lower extremities with history of DVT will obtain lower extremity venous Doppler ultrasound Disposition: PCP Dr. Ponce CODE STATUS: Full code VTE prophylaxis: Teds and SCDs for now I spent a total of 87 minutes coordinating, documenting, and providing care for this patient excluding time spent in the performance of separately billed services. All of the aforementioned completed while collaborating with the assigned attending physician for a full treatment plan. Please see their addendum for further details. History of Present Illness Chief Complaint: cough/SOB Primary Care Provider: Tanesha Ponce DO Ms. Godinez is a 78 year old female that presents to the ED with cough and SOB that started on Monday night after she recently returned home from being discharged from [facility] on Saturday 09/23. Prior to her [facility] admission she was transferred to [facility] from [facility] after experiencing aphagia which was suspected to be secondary to her seizure history; she was transferred for continuos EEG. 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 Patient recently completed a 3-day course of Rocephin for treatment of UTI. Today she presents with shortness of breath SpO2 86 to 88%; wears 2 L supplemental O2 at home at baseline. Chest x-ray negative for acute cardiopulmonary disease. EKG without ischemic changes. Bio fire positive for parainfluenza 3. Patient has a known history of chronic hypoxemia respiratory failure. Additional past medical history includes COPD, PAD, history of seizures, history of AVM, A-fib on anticoagulation, history of GIB, and history of DVT (not on any anticoagulation). Has followed with pulmonary in the past. No leukocytosis, otherwise electrolytes unremarkable, LFTs negative, BNP negative, troponin negative. Chest x-ray negative for acute cardiopulmonary disease however visual sensation of imaging is unavailable at the moment. EKG without ischemic changes. Patient denies headache, dizziness, lightheadedness, visual or auditory changes, chest pain, palpitations, abdominal pain or tenderness, nausea, vomiting, diarrhea. On examination patient appears frail and ill. Patient able to speak in complete sentences and is AAO x 4 but visibly weak and coughing persistently. Intermittent sounds of stridor. Bilateral lower extremities grossly swollen +4 pitting edema. Right calf tender. With known history of DVT which she reports has been years low threshold to add chest CT. Patient will be admitted for further evaluation and management of chronic hypoxemia respiratory failure in the setting of parainfluenza 3. Placed on droplet precautions, will add azithromycin plus Rocephin for broad-spectrum coverage and adjust based on blood and sputum culture results, continue IV steroids 40 mg Q8, add Mucinex, continuous O2, flutter valve and ISB for supportive treatment,will obtain bilateral Doppler ultrasound LE, PT/OT for continued rehabilitation. Allergies Allergy/AdvReac Type Severity Reaction Status Date / Time ciprofloxacin Allergy Severe Seizure on Verified 09/26/23 15:36 file w/ Induction Manager Mail Order Sulfa (Sulfonamide Allergy Mild rash Verified 09/26/23 15:36 Antibiotics) alcohol Allergy Unknown Recovering Verified 09/26/23 15:36 Alcoholic lacosamide [From Vimpat] AdvReac Severe facial Verified 09/26/23 15:36 swelling and erythema Opioids - Morphine Analogues AdvReac Unknown HISTORY OF Verified 09/26/23 15:36 ADDICTION Home Medications Medication Instructions Recorded Confirmed Type umeclidinium 62.5 mcg/actuation 1 inh inhalation QAM 04/11/18 09/26/23 History blister powder for inhalation (Incruse Ellipta) fluticasone furoate 200 1 inh inhalation QAM 10/09/18 09/26/23 History mcg-vilanterol 25 mcg/dose inhalation powder (Breo Ellipta) metoprolol succinate 25 mg 25 mg PO QDD PRN SBP >=100 10/09/18 09/26/23 History tablet,extended release 24 hr acetaminophen 325 mg tablet 325 mg PO Q6H PRN Pain 03/18/19 09/26/23 History lorazepam 1 mg tablet (Ativan) 1 mg buccal DIRECTED PRN as 03/18/19 09/26/23 History needed for seizure multivitamin (Daily Multi-Vitamin 1 tab PO DAILY 04/26/19 09/26/23 History tablet) divalproex 500 mg tablet,delayed See Rx Instructions .Route .COMPLEX 07/30/19 09/26/23 History release (Depakote) furosemide 40 mg tablet 40 mg PO DAILY 07/30/19 09/26/23 History docusate sodium 100 mg capsule 0 mg PO QAM 12/10/20 09/26/23 History duloxetine 20 mg capsule,delayed 20 mg PO QAM 12/10/20 09/26/23 History release ferrous sulfate 325 mg (65 mg 325 mg PO DAILY 12/10/20 09/26/23 History iron) tablet levetiracetam 1,000 mg tablet 1,000 mg PO BID 12/10/20 09/26/23 History (Keppra) divalproex 250 mg tablet,extended See Rx Instructions .Route .COMPLEX 09/07/23 09/26/23 History release 24 hr calcium carbonate 500 mg-vitamin 1 tab PO TIDM 09/26/23 09/26/23 History D3 5 mcg (200 unit) tablet (Calcium 500 + D) clobazam 10 mg tablet 15 mg PO DAILY 09/26/23 09/26/23 History diazepam 5 mg-7.5 mg-10 mg rectal 5 mg ID Q12H PRN Seizures 09/26/23 09/26/23 History kit levetiracetam 500 mg tablet 500 mg PO BID 09/26/23 09/26/23 History (Keppra) tramadol 50 mg tablet 50 mg PO Q8H PRN PAIN, SCALE (7-10) 09/26/23 09/26/23 History Past Med/Surg History Medical History Infection due to parainfluenza virus 3 History of DVT (deep vein thrombosis) Hematoma of right thigh Non-ischemic cardiomyopathy Obesity (BMI 30.0-34.9) 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 with INR goal of 2.0-3.0 Vasogenic edema AVM (arteriovenous malformation) brain Seizures COPD (chronic obstructive pulmonary disease) AA (alcohol abuse) Surgical History H/O section History of appendectomy History of cataract surgery Family History Mother Stroke Heart disease Social History Smoking Status: Never smoker Tobacco Type: Cigarettes Cigarettes Per Day: 40; Second Hand Exposure: No; Do You Dip or Chew Tobacco: No; Tobacco Cessation Education Requested by Patient: No Hx Alcohol Use: No Hx Substance Use: No Preferred Language: Tunisian Communication Ability: Effective Communication Ability Comment: pt currently has expressive aphasia and is unable to follow commands Visual Impairment: No Limitations Pmp Certified Project Manager Required: No Beliefs That Will Affect Care: None marital status: Current Living Situation: Spouse Current Living Situation Comment: home current occupational status: retired Other Information That Helps Us Care for You: No Feels Safe at Home: Yes Safety Concerns: Feels Safe At This Time Assistive Devices: Scooter/Electric Scooter Review of Systems Review of Systems: Neuro: (-) Falls, trauma, slurred speech HEENT: (-) SANDOVAL, dizziness, dysphagia, visual or auditory changes CV: (-) CP, palpitations, swelling BL LE edema Resp: (+) SOB GI: (-) appetite changes, N/V/D, bowel changes : (+) urinary changes Skin: (-) rashes Psych: (-) anxiety, depression Physical Exam Physical Exam: Neuro: AAOx4, PERRLA, no aphagia, memory changes, CNII-XII grossly intact HEENT: head normocephalic, moist mucus membranes CV: S1/S2, (-) M/G/R, (-) edema, cap refill < 3 seconds. + 4 BL LE edema Resp: Lungs coarse rhonchi throughout lung solano. On 4LNC. Intermittent sounds of stridor GI: Abdomen S/NT/ND, Ax4 bowel sounds, (-) CVA tenderness Musculoskeletal: 5/5 B/L UE strength, 5/5 B/L LE strength. No gait disturbance (+) calf tenderness LLE Skin: (-) rashes , (-) erythema. Psych: euthymic mood Results & Data Results & Data Vital Signs (Past 12 Hours) Vital Signs Temp Pulse Pulse Resp BP BP Pulse Ox 09/26/23 12:05 87 L 09/26/23 12:03 84 L 09/26/23 11:30 83 18 148/70 H 96 09/26/23 11:29 85 09/26/23 11:26 84 12 96 09/26/23 11:15 36.8 C 81 12 148/70 H 97 09/26/23 10:57 36.8 C 86 17 148/70 H 98 O2 Del Method O2 Flow Rate 09/26/23 12:05 Nasal Cannula 2 09/26/23 12:03 Nasal Cannula 0 09/26/23 11:30 Nasal Cannula 4 09/26/23 11:29 09/26/23 11:26 Nasal Cannula 4 09/26/23 11:15 Nasal Cannula 4 09/26/23 10:57 Nasal Cannula 4 Laboratory Results Short CBC 09/26/23 Range/Units 11:30 WBC 6.61 (4.8-10.8) K/ul Hgb 11.4 L (12.0-16.0) g/dl Hct 35.1 L (37.0-47.0) % Plt Count 181 (130-400) K/uL BMP 09/26/23 11:30 Sodium 141 Potassium 4.2 Chloride 101 Carbon Dioxide 34 H BUN 19 Creatinine 0.84 Glucose 97 Calcium 9.4 Liver Function 09/26/23 Range/Units 11:30 Total Bilirubin 0.3 (0.2-1.0) mg/dl AST 23 (13-39) U/L ALT 15 (7-52) U/L Alkaline Phosphatase 47 (34-104) U/L Albumin 3.9 (3.4-5.0) gm/dl Diagnostic Findings Chest X-Ray 09/26/23 11:19 XR chest 1V portable HISTORY: 78 years-old Female Chest pain, nonspecific COMPARISON: 12/10/2020 TECHNIQUE: AP view of the chest FINDINGS: Cardiac silhouette is enlarged. Atherosclerosis of the aorta. No pneumothorax, pleural effusion or overt pulmonary edema. Mild bibasilar densities suggest atelectasis versus scarring. Chronic interstitial coarsening. Bones appear grossly intact. IMPRESSION: No acute process. ACT 112: Negative or not required by law. The above report was generated using voice recognition software. It may contain grammatical, syntax or spelling errors. Electronically signed by: Boone Pedro M.D. 09/26/2023 11:50 AM Code Status & VTE Plan Code Status Full Code in the event of cardiac or respiratory arrest VTE Prophylaxis Plan VTE Prophylaxis will be ordered: Yes Supervising Physician Co-Signing Physician Notes I have seen and discussed the case with the collaborating advanced practitioner. I agree with the above H&P. I have reviewed and confirmed the patients medical history, the findings on physical examination, and the patients diagnosis and treatment plan with Rhona SPARROW and agree with the information documented. In short, Ms. Godinez is a 78 year old woman with history of chronic resp failure on home O2, COPD, frontoparietal AVM, epilepsy who is admitted for acute on chronic respiratory failure iso of parainluenza virus. Patient states she was feeling well upon discharge from [facility] on Monday, however, began to cough and progressed significantly. Patient reports yellowish sputum with increased productivity. Denies fevers, just endorses increased SOB. recieved IV lasix, methyl pred in ed with minimal relief. GENERAL APPEARANCE: AxOx4, ill appearing woman, ongoing cough HEENT: NC, AT. MMM. EOMI, clear conjunctiva, oropharynx clear. NECK: Supple without lymphadenopathy. No stiffness or restricted ROM. HEART: tachycardic, difficult to appreciate 2/2 rhonchi LUNGS: diffuse rhonchi, no crackles, trace wheeze, productive cough ABDOMEN: Soft, nontender, nondistended with good bowel sounds heard. EXTREMITIES: bilateral lower extremity edema 1-2+ NEUROLOGICAL: Grossly nonfocal. Alert and oriented, moving all 4 extremities. CN not formally tested but appear grossly intact. Skin: Warm and dry without any rash. #Acute URI, parainfluenza #Acute on chronic COPD exacerbation -Continue IV methylpred q8h -Wean oxygen as able -Symptomatic treatment, including scheduled mucinex -Prior CT chest with mucus plugging -CTX and Azithromycin in interim Close monitoring, tenusous resp status Hypertonic nebs to help with secretions Rest of plan as above Rest of plan as above I spent a total of 35 minutes coordinating, documenting, and providing care for this patient excluding time spent in the performance of separately billed services. All of the aforementioned completed outside of collaborating with the assigned advanced practitioner for a full treatment plan. I have reviewed the advanced practitioner's documentation, and I agree with, and take responsibility for the plan of care (4) Atrial fibrillation Atrial fibrillation type: unspecified Qualified Code(s): I48.91 - Unspecified atrial fibrillation
[2023-09-26] MEDS: FUROSEMIDE 40 MG/4 ML VIAL IV STA (14:30)
[2023-09-26 16:16] LABS: Folate (Folic Acid),Ser orPlas > 22.30 ng/ml (>5.38); Vitamin B12 640 pg/ml (180-914)
[2023-09-26 17:02] LABS: Appearance Urine Clear (Clear); Bacteria Urine Automated None Seen (None Seen); Bilirubin Urine Negative (Negative); Blood Urine Negative (Negative); Color Urine Yellow; Glucose Urine UA Negative (Negative); Ketones Urine Trace (Negative); Leukocyte Esterase Urine Trace (Negative); Nitrite Urine Negative (Negative); Protein Urine Negative (Negative); RBC Urine Automated 0-2 /hpf (0-2); Specific Gravity Urine 1.008 (1.000-1.030); Urobilinogen Urine Negative (Negative); WBC Urine Automated 0-5 /hpf (0-5)
--- NOTE | 2023-09-26 17:20 | Ultrasound Report ---
BILATERAL LOWER EXTREMITY VENOUS DOPPLER HISTORY: Acute pain and swelling of the right lower extremity H/O DVT leg pain and swelling COMPARISON STUDY: 12/02/2020 FINDINGS: There is normal compressibility, flow, and augmentation within the bilateral lower extremit y deep venous systems. IMPRESSION: No DVT within the right or left lower extremity. ACT 112: Negative or not required by law. Electronically signed by: Boone Pedro M.D. 09/26/2023 5:19 PM
[2023-09-26] MEDS: AZITHROMYCIN 500 MG in DEXTROSE 5% 250 ML IV SCH (17:40)
[2023-09-26] MEDS: methylPREDNISolone 40 MG in SYRINGE 0 ML IV SCH (19:06)
[2023-09-26] MEDS ORDERED: LORazepam 1 MG TAB PO PRN (19:13)
[2023-09-26] MEDS ORDERED: METOPROLOL SUCC 25MG EXT REL TAB PO PRN (19:13)
[2023-09-26] MEDS ORDERED: methylPREDNISolone 125 MG/2 ML VIAL IV SCH (20:00)
[2023-09-26] MEDS: levETIRAcetam 500 MG TAB PO SCH (20:26)
[2023-09-26] MEDS: cefTRIAXone SODIUM 2,000 MG in DEXTROSE 5 % MINI-B 50 ML IV SCH (20:26)
[2023-09-26] MEDS ORDERED: guaiFENesin 600 MG TABCR PO SCH (21:00)
[2023-09-26] MEDS ORDERED: levETIRAcetam 500 MG TAB PO SCH (21:00)
--- OUTSIDE RECORDS SUMMARY | 2023-09-26 21:29 | External Medical Summary ---
Author Name Unknown Address Unknown Organization [id number]:[facility] [address] [place] [id number] Laboratory Report Ordering Provider Test Date Status KONRAD EMANUEL 09/22/2023 06:00:00 Final Observation Date Value Abnormality Reference (Units ) Status Valproic Acid, level 09/22/2023 06:00:00 70 50-100 (ug/mL) Final Performing Location [facility] - [address] [place] [id number]
--- OUTSIDE RECORDS SUMMARY | 2023-09-26 21:29 | External Medical Summary ---
Author Name Unknown Address Unknown Organization [id number]:[facility] [place] [address] Laboratory Report Ordering Provider Test Date Status KONRAD EMANUEL 09/13/2023 06:14:56 Final Observation Date Value Abnormality Reference (Units ) Status WBC, Total 09/13/2023 06:14:56 6.48 4.00-10.8 0 (K/uL) Final RBC 09/13/2023 06:14:56 3.37 3.85-5.15 (M/uL) Final Hemoglobin 09/13/2023 06:14:56 11.3 Below low normal 12 .0-15.3 (g/dL) Final HCT 09/13/2023 06:14:56 36.3 36.0-45.2 (%) Final MCV 09/13/2023 06:14:56 107.7 81.5-97.5 (fL) Final MCH 09/13/2023 06:14:56 33.5 27.0-34.0 (pg) Final MCHC 09/13/2023 06:14:56 31.1 32.0-36.0 (g/dL) Final RDW 09/13/2023 06:14:56 13.2 11.5-15.5 (%) Final Platelets 09/13/2023 06:14:56 211 140-400 (K /uL) Final MPV 09/13/2023 06:14:56 9.7 6.6-11.1 ( fL) Final Performing Location [facility] [place] [address]
--- OUTSIDE RECORDS SUMMARY | 2023-09-26 21:29 | External Medical Summary ---
Author Name Unknown Address Unknown Organization [id number]:[facility] [place] [address] [place] [address] Laboratory Report Ordering Provider Test Date Status KONRAD EMANUEL 09/20/2023 09:58:03 Final Observation Date Value Abnormality Reference (Units ) Status BUN 09/20/2023 09:58:03 24 Above high normal 6-20 (mg/dL) Final Creatinine 09/20/2023 09:58:03 1.0 0.5-1.0 (mg/dL) Final Glomerular filtration rate/1.73 sq M.predicted [Volume Rate/Area] in Serum, Plasma or Blood by Creatinine-based formula (CKD-EPI) 09/20/2023 09:58:03 61 >=60 (mL/min) Final eGFR is calculated based on the CKD-EPI 2020 equation Sodium 09/20/2023 09:58:03 144 135-146 (m mol/L) Final Potassium 09/20/2023 09:58:03 4.1 3.5-5.1 (m mol/L) Final Cl 09/20/2023 09:58:03 99 98-107 (mm ol/L) Final CO2 09/20/2023 09:58:03 33 Above high normal 22 -32 (mmol/L) Final Anion gap 09/20/2023 09:58:03 12 7-15 (mmol /L) Final Glucose 09/20/2023 09:58:03 77 70-120 (mg /dL) Final Calcium 09/20/2023 09:58:03 9.6 8.4-10.2 ( mg/dL) Final Performing Location [facility] [place] [place] [address] [place] [id number]
--- OUTSIDE RECORDS SUMMARY | 2023-09-26 21:29 | External Medical Summary ---
Author Name Unknown Address Unknown Organization [id number]:[facility] [place] - [address] [place] [address] Laboratory Report Ordering Provider Test Date Status KONRAD EMANUEL 09/20/2023 09:58:03 Final Observation Date Value Abnormality Reference (Units ) Status WBC, Total 09/20/2023 09:58:03 5.63 4.00-10.80 (K/uL) Final RBC 09/20/2023 09:58:03 3.34 3.85-5.15 (M/uL) Final Hemoglobin 09/20/2023 09:58:03 11.4 Below low normal 12.0-15.3 (g/dL) Final HCT 09/20/2023 09:58:03 35.4 Below low normal 36.0-45.2 (%) Final MCV 09/20/2023 09:58:03 106.0 81.5-97.5 (fL) Final MCH 09/20/2023 09:58:03 34.1 27.0-34.0 (pg) Final MCHC 09/20/2023 09:58:03 32.2 32.0-36.0 (g/dL) Final RDW 09/20/2023 09:58:03 13.2 11.5-15.5 (%) Final Platelets 09/20/2023 09:58:03 262 140-400 (K/uL) Final MPV 09/20/2023 09:58:03 9.5 6.6-11.1 (fL) Final Nucleated erythrocytes/100 leukocytes [Ratio] in Blood by Automated count 09/20/2023 09:58:03 0 <=0 (/100 WBCs) Final Performing Location [facility] [place] - [address] [place] [id number]
--- OUTSIDE RECORDS SUMMARY | 2023-09-26 21:29 | External Medical Summary | Summary of Care ---
Author Name Unknown Organization [facility] Address [address] [place] [address] Phone [phone] Care Team Providers Care Oil Exploration Engineer Name Role Phone Tanesha Ponce DO Primary Care Provider [phone] Reason for Visit * Reason Onset Date Comments Advice 09/26/2023 Encounter Details Date Type Department Care Team (Late st Contact Info) Description 09/26/2023 Telephone Family Practice 65 [facility], [place] [address] [place] [phone] Tanesha Ponce DO [address] [place] [address] Advice Allergies Active Allergy Reactions Criticality Noted Date Comments Ciprofloxacin Seizure High 08/06/2019 Morphine 08/09/2018 Other Allergy (See Comments) 01/30/2018 ALCOHOL & OPIOIDS Sulfa Antibiotics 10/31/2014 Hives/rash Lacosamide Other (Please comment) High 04/02/2019 Developed resp distress, breathing slowed and became unresponsive. documented as of this encounter (statuses as of 09/26/2023) Medications Medication Sig Dispensed Refills Start Date End Date Status Acetaminophen (APAP) 325 MG Tablet Take 1 Tablet by mouth every 6 hours as needed for Pain. 0 Active Multiple Vitamins-Minerals (MULTIVITAMIN ADULT) TABS Take by mouth. 0 Active ferrous sulfate (FEOSOL) 325 (65 FE) MG Tablet Take 1 Tablet by mouth in the morning. 60 Tab 11 12/10/2019 Active docusate sodium (COLACE) 100 MG Capsule Take 1 Capsule by mouth in the morning and 1 Capsule before bedtime. Taking 5 capsules daily. . 60 Cap 5 12/10/2019 Active Calcium 500-125 MG-UNIT Oral Tablet Take 1 Tablet by mouth in the morning and 1 Tablet at noon and 1 Tablet in the evening. Take with meals. 0 Active Knee BraceIndications:K nee instability, right,Flaccid hemiplegia affecting right dominant side, unspecified etiology (HCC) Right knee brace To be evaluated by [facility] at [facility] 1 Each 0 01/20/2022 Active diazePAM 10 MG Rectal Gel (Diastat) ADMINISTER 5 MG INTO THE RECTUM NEEDED FOR PROLONGED SEIZURE. TAKE 5 MG EVERY 12 HOURS NEEDED SEIZURE AFTER FALLING. TAKE WITH ATIVAN X 2 1 Each 2 05/09/2022 Active Divalproex Sodium ER 500 MG Oral Tablet Extended Release 24 Hour (Depakote ER) TAKE ONE TABLET BY MOUTH IN THE MORNING AND TAKE ONE TABLET BEFORE BEDTIME 200 Tablet 1 12/14/2022 12/14/2023 Active LORazepam 1 MG Oral Tablet (Ativan) Take 1 tablet every 5 minutes as needed for seizure if awake for 2 doses 30 Tablet 1 01/31/2023 Active traMADol HCl 50 MG Oral Tablet (Ultram)Indication s:Right foot pain Take 1 Tablet by mouth every 8 hours as needed for Pain, Severe. 60 Tablet 0 06/02/2023 12/03/2023 Active Breo Ellipta 200-25 MCG/ACT Inhalation Aerosol Powder Breath ActivatedIndicatio ns:Chronic respiratory failure with hypoxia (HCC) INHALE ONE PUFF BY MOUTH EVERY DAY 180 Each 3 06/09/2023 06/08/2024 Active Incruse Ellipta 62.5 MCG/ACT Inhalation Aerosol Powder Breath Activated (umeclidinium [place])Indication s:Chronic respiratory failure with hypoxia (HCC) INHALE ONE PUFF BY MOUTH EVERY DAY 90 Each 3 06/09/2023 06/08/2024 Active DULoxetine HCl 20 MG Oral Capsule Delayed Release Particles (Cymbalta) Take 1 Capsule by mouth in the morning. Do not cut, crush or chew. 100 Capsule 1 06/20/2023 Active Atorvastatin Calcium 20 MG Oral Tablet (Lipitor) TAKE ONE TABLET BY MOUTH EVERY MORNING 100 Tablet 0 06/27/2023 06/26/2024 Active Divalproex Sodium ER 250 MG Oral Tablet Extended Release 24 Hour (Depakote ER) TAKE ONE TABLET BY MOUTH IN THE MORNING AND TAKE ONE TABLET BY MOUTH BEFORE BEDTIME 180 Tablet 0 08/11/2023 08/10/2024 Active Metoprolol Succinate ER 25 MG Oral Tablet Extended Release 24 Hour (toPROL XL) TAKE ONE TABLET BY MOUTH EVERY DAY IF SYSTOLIC BLOOD PRESSURE IS 100 OR HIGHER 100 Tablet 3 08/12/2023 08/11/2024 Active Furosemide 40 MG Oral Tablet (Lasix) TAKE ONE TABLET BY MOUTH EVERY DAY 100 Tablet 0 09/02/2023 09/01/2024 Active cloBAZam 20 MG Oral Tablet (Onfi) Take 0.75 Tablet (3/4 tablet) by mouth in the morning. 30 Tablet 1 09/13/2023 Active levETIRAcetam 1000 MG Oral Tablet Take 1.5 Tablets by mouth in the morning and 1.5 Tablets before bedtime. 180 Tablet 5 09/12/2023 Active documented as of this encounter (statuses as of 09/26/2023) Active Problems Problem Noted Date Diagnosed Date Seizure-like activity 09/08/2023 CHAPO (generalized anxiety disorder) 08/01/2023 Atherosclerosis of belkofski co ronary artery without angina pectoris 06/23/2022 Claustrophobia 06/23/2022 PVD (peripheral vascular disease) 12/15/2021 COPD, group B, by GOLD 2017 classification 07/19 Overview: Per COPD GOLD Classification Encounter for antineoplastic chemotherapy 2020 Alcoholism in recovery 01/08/2021 Old PR (myocardial infarction) 12/10/2019 Moderate major depression 06/18/2019 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 06/06 Chronic respiratory failure with hypoxia 019 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 04/02/2019 Anthony's paralysis 04/02/2019 Pulmonary emphysema 10/04/2018 Chronic deep vein thrombosis of left femoral vei n 10/04/2018 Anticoagulated on Coumadin 10/04/2018 Stress-induced cardiomyopathy 04/12/2018 Simple partial seizures evol ving to generalized tonic-clonic seizures 04/11/2018 Iron deficiency anemia 03/16/2018 AVM (arteriovenous malformation) brain 8 Mass, brain 02/01/2018 Thyroid nodule 02/01/2018 Right carotid bruit 02/01/2018 documented as of this encounter (statuses as of 09/26/2023) Resolved Problems Problem Noted Date Diagnosed Date Resolved Date Non-pressure chronic ulcer o f right heel and midfoot with other specified severity 01/08/2021 Other cardiomyopathies 12/10/201903/11 Opioid abuse, in remission 04/02/2019 0 06/19/2019 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 06/18/2019 Protein-calorie malnutrition 04/02/2019 06/18/2019 Stage 3 chronic kidney disease 01/14/2019 08/24/2021 Overview: Per CKD protocol Dysuria 10/15/2018 06/19/2019 Chronic respiratory failure with hypoxia 10/04/2018 06/25/2019 Overview: duplicate Acute blood loss anemia 07/19/201806/05 Hematoma of groin 07/19/2018 10/04/2018 Status epilepticus 07/08/2018 0 Acute respiratory failure 07/08/2018 COPD, moderate 07/03/2015 10/04/2018 documented as of this encounter (statuses as of 09/26/2023) Immunizations Name Administration Dates Next Due COVID-19 mRNA, LNP-s, No Pre serve, 2-Dose Series ([employer]) 04/14/2021,09/10/2020,08/13/2020 COVID-19, LNP-s, No Preserve , Tom-sucrose, Ages 12+ (Pfizer) 12/21/2021 COVID-19, MRNA-LNP, 23-24, P F, 30 MCG/0.3 mL, 12 YRS AND ABOVE, IM ([employer]-Comirnat) 04/11/2023 Covid-19, Mrna, Lnp-s, Pf, B ivalent, 30 Mcg, IM, 12 yrs and above ([employer]) 04/12/2022 Pneumococcal Conjugate Vacc, 13 Valent (Prevnar) 04/22/2015 Pneumococcal Polysaccharide PPV23 (Pneumovax) 05/04/2016,04/15/2010 RSV Vac., Bivalent, Perfusio n F, Pf,0.5 Ml (Abrysvo) 04/11/2023 Seasonal Influenza, PF, 6 M & above, IM , (FluLaval or Fluzone) 03/11/2020,03/12/2019,03/16/2018,03/24 Seasonal Influenza, Quadriva lent Hd (Fluzone Hd) 02/14/2023,03/23/2022,03/11/2021 Seasonal Influenza, Quadriva lent, No Preserve, IM 03/11/2016,04/22/2015 Seasonal Influenza, Split, I IV3, With Preserve, Inj 12/03/2011 TDAP (age 10 and older)(Boostrix) 02/01/2018 Varicella Zoster Vaccine (Adult) 04/12/2012 Zoster Vaccine Recombinant (Shingrix) 12/07/2021 ,09/07/2021 documented as of this encounter Social History Tobacco Use Types Packs/Day Years Used Date Smoking Tobacco: Former Cigarettes 1 46 0 10/26/1964 - 10/26/2010 Passive Smoke Exposure: Past Smokeless Tobacco: Never Alcohol Use Standard Drinks/Week Comments No 0 (1 standard drink = 0.6 oz pure alcohol) Pt had previous history of alcohol abuse- she has not had a drink in 22 years PHQ-2 Answer Date Recorded PHQ Adult Total Score 8 03/06/2023 Hunger Vital Sign Answer Date Recorded Within the past 12 months, y ou worried that your food would run out before you got the money to buy more. Never true 03/06/20 23 Within the past 12 months, t he food you bought just didn't last and you didn't have money to get more. Never true 03/06/2023 Sex and Gender Information Value Date Recorded Sex Assigned at Female 12/15/2021 10:27 AM EDT Gender Identity Female 12/15/2021 10:27 AM EDT Sexual Orientation Straight 12/15/2021 10 :27 AM EDT Job Start Date Occupation Industry Not on file Not on file Not on file documented as of this encounter Functional Status Functional Status Response Date of Assess ment Are you deaf or do you have serious difficulty h earing? No 09/08/2023 Are you blind or do you have serious difficulty seeing, even when wearing glasses? No 09/08/2023 Do you have serious difficul ty walking or climbing stairs? (5 years old or older) Yes 09/08/2023 Do you have difficulty dress ing or bathing? (5 years old or older) Yes 09/08/2023 Because of a physical, menta l, or emotional condition, do you have difficulty doing errands alone such as visiting a doctor s office or shopping? (15 years old or older) Yes 09/08/19 24 Cognitive Status Response Date of Assessm ent Because of a physical, menta l, or emotional condition, do you have serious difficulty concentrating, remembering, or making decisions? (5 years old or older) Yes 09/08/2023 documented as of this encounter Miscellaneous Notes * Telephone Encounter - Clare Macias RN - 09/26/2023 8:13 AM EDT Call received from Duncan from [facility]-states had received a call from pt's stating Kathy started with a cough yesterday-was coughing non stop all night. Call to pt/ States coughing non stop-productive of muc-no color. Pt on 2L of O2-pulse ox 89-90%, increased O2 to 3L-pulseox 91%. No fever. Told make sure she uses her Breo inhaler and her Incruse inhaler today. SPoke with Dr Ponce. To continue to monitor O2 levels and if below 89% pt should go to the ER. Offered appt today at 3:[address] Ponce for hospital discharge- discharged from rehab on Monday. Told pt to come at 3:20 to see pharmacist first-agreeable to appts. To call sooner for further or worsening symptoms. Call to [facility] to get discharge summary-left message on machine to fax her discharge summary. documented in this encounter Plan of Treatment Upcoming Encounters Date Type Department Care Team (Late st Contact Info) Description 09/26/2023 3:20 PM EDT Pharmacy Family Practice 65 [facility] [address] [place] [place] [address] College, Pharmacist [address] [place] [address] 09/26/2023 3:40 PM EDT Office Visit Family Practice 65 [facility] [address] [place] [address] Tanesha Ponce, DO [address] [place] [address] 10/10/2023 2:00 PM EDT Office Visit Otolaryngology [facility] [address] [place] [address] Nish Glynn, DO [address] [place] [address] 10/11/2023 10:40 AM EDT Office Visit Family Practice 65 [facility] [address] [place] [phone] Tanesha Ponce, DO [address] [place] [address] 10/19/2023 10:40 AM EDT Office Visit Podiatry [facility] [address] [place] [address] Laura Owen, DPM [address] [place] [address] 10/25/2023 10:40 AM EDT Office Visit Neurology [facility] [address] [place], [place] [address] Karena Ford PA-C [address] [place], [place] [address] 12/12/2023 11:00 AM EDT Office Visit Neurosurgery, [place] [address] [place] [address] Nito Meeks MD [address] [place], [place] [id number] 03/12/2024 1:00 PM EDT Nurse Only Ancillary [address] [facility], [place] [address] [place] [address] College, Nurse Annual Wellness Visit [address] [facility] [address] [place] [address] Health Maintenance Due Date Last Done Comments DXA Scan 1945 Alpha-1 Antitrypsin 1963 O2 ASSESSMENT COMPLETED IN PAST YEAR FOR COPD 09/08/2024 09/09/2023 DTaP,Tdap,and Td Vaccines (2 - Td or Tdap) 02/02/2028 02/01/2018 Pneumococcal Vaccine: 65+ Years Completed 05/04/2016, 05/10/2015, 04/22/2015, Additional history exists Lung Cancer Screening Completed 08/21/2020 , 01/29/2020, 07/18/2019, Additional history exists Zoster Vaccines Completed 12/07/2021, 10/2021, 04/12/2012 Influenza Vaccine (FLU shot) Completed 05/2023, 03/23/2022, 03/11/2021, Additional history exists COVID-19 Vaccine Completed 04/11/2023, 01/2022, 12/21/2021, Additional history exists GARDASIL-HPV IMMUNIZATION SERIES Aged Out No longer eligible based on patient's age to complete this topic Hepatitis B Aged Out No longer eligi ble based on patient's age to complete this topic MENINGOCOCCAL (MENACTRA/MENVEO) Aged Out No longer eligible based on patient's age to complete this topic documented as of this encounter Medical Devices Not on filedocumented as of this encounter Advance Directives Latest Code Status on File Code Status Date Activated Date Inactivated Comments Full Code 09/08/2023 1:24 AM 09/12/2023 6:12 PM This or daryl reflects the patients wishes and were consensually agreed upon. Question Answer Comments Discussion of Advance Directives occurred with: Patient Code Status History Code Status Date Activated Date Inactivated Comments Full Code 07/08/2018 11:12 AM 07/19/2018 10:07 PM This order reflects the patients wishes and were consensually agreed upon. Question Answer Comments Discussion of Advance Directives occurred with: Not Discussed Does the patient have a Living Will? No Does the patient have Health Care Power of Senior Software Qa Analyst? No Full Code 04/11/2018 3:26 PM 04/13/2018 6:58 PM This order reflects the patients wishes and were consensually agreed upon. Question Answer Comments Discussion of Advance Directives occurred with: Patient Does the patient have a Living Will? No Does the patient have Health Care Power of Senior Software Qa Analyst? No Healthcare Agents on File Name Relationship Healthcare Agent Relationship Communication Davide Irvin Priscaedin [facility] er of Senior Software Qa Analyst [email or web address] That File Care Teams Oil Exploration Engineer Relationship Specialty Start Date End Date Tanesha Ponce DO [address] [place] [address] PCP - General Family Medicine 02/12/23 documented as of this encounter
--- OUTSIDE RECORDS SUMMARY | 2023-09-26 21:29 | External Medical Summary ---
Author Name Unknown Address Unknown Organization [id number]:[facility] [place] [address] Laboratory Report Ordering Provider Test Date Status KONRAD EMANUEL 09/13/2023 06:14:56 Final Observation Date Value Abnormality Reference (Units ) Status BUN 09/13/2023 06:14:56 26 Above high normal 6-20 (mg/dL) Final Creatinine 09/13/2023 06:14:56 0.8 0.5-1.0 (mg/dL) Final Glomerular filtration rate/1.73 sq M.predicted [Volume Rate/Area] in Serum, Plasma or Blood by Creatinine-based formula (CKD-EPI) 09/13/2023 06:14:56 78 >=60 (mL/min) Final eGFR is calculated based on the CKD-EPI 2020 equation Sodium 09/13/2023 06:14:56 144 135-146 (m mol/L) Final Potassium 09/13/2023 06:14:56 5.0 3.5-5.1 (m mol/L) Final Cl 09/13/2023 06:14:56 105 98-107 (mm ol/L) Final CO2 09/13/2023 06:14:56 30 22-32 (mmo l/L) Final Anion gap 09/13/2023 06:14:56 9 7-15 (mmol /L) Final Glucose 09/13/2023 06:14:56 94 70-120 (mg /dL) Final Calcium 09/13/2023 06:14:56 10.1 8.4-10.2 ( mg/dL) Final Performing Location [facility] [place] [address]
--- OUTSIDE RECORDS SUMMARY | 2023-09-26 21:30 | External Medical Summary ---
Author Name Unknown Address Unknown Organization [id number][facility] [place] [facility] [address] [place] [address] Laboratory Report Ordering Provider Test Date Status GRECIAJASON SILVEIRA 09/12/2023 07:44:00 Final Observation Date Value Abnormality Reference (Units ) Status WBC, Total 09/12/2023 07:44:00 5.88 4.00-10.80 (K/uL) Final RBC 09/12/2023 07:44:00 3.58 3.85-5.15 (M/uL) Final Hemoglobin 09/12/2023 07:44:00 12.1 12.0-15.3 (g/dL) Final HCT 09/12/2023 07:44:00 37.8 36.0-45.2 (%) Final MCV 09/12/2023 07:44:00 105.6 81.5-97.5 (fL) Final MCH 09/12/2023 07:44:00 33.8 27.0-34.0 (pg) Final MCHC 09/12/2023 07:44:00 32.0 32.0-36.0 (g/dL) Final RDW 09/12/2023 07:44:00 12.7 11.5-15.5 (%) Final Platelets 09/12/2023 07:44:00 208 140-400 (K/uL) Final MPV 09/12/2023 07:44:00 8.8 6.6-11.1 (fL) Final Nucleated erythrocytes/100 leukocytes [Ratio] in Blood by Automated count 09/12/2023 07:44:00 0 <=0 (/100 WBCs) Final Performing Location [facility] [place] [address] [place] [address]
--- OUTSIDE RECORDS SUMMARY | 2023-09-26 21:30 | External Medical Summary | Summary of Care ---
Author Name Unknown Organization [facility] Address [address] [facility] [place] [address] Phone [phone] Care Team Providers Care Descriptive Catalog Librarian Name Role Phone Tanesha Ponce DO Primary Care Provider [phone] Reason for Visit * Reason Onset Date Comments Advice 09/11/2023 Rehab d/c Encounter Details Date Type Department Care Team (Late st Contact Info) Description 09/11/2023 Telephone Family Practice [address] [place] [address] [place] [phone] Tanesha Ponce DO [address] [place] [address] Advice (Rehab d/c) Allergies Active Allergy Reactions Criticality Noted Date Comments Ciprofloxacin Seizure High 08/06/2019 Morphine 08/09/2018 Other Allergy (See Comments) 01/30/2018 ALCOHOL & OPIOIDS Sulfa Antibiotics 10/31/2014 Hives/rash Lacosamide Other (Please comment) High 04/02/2019 Developed resp distress, breathing slowed and became unresponsive. documented as of this encounter (statuses as of 09/11/2023) Medications Medication Sig Dispensed Refills Start Date End Date Status Acetaminophen (APAP) 325 MG Tablet Take 1 Tablet by mouth every 6 hours as needed for Pain. 0 Suspended Multiple Vitamins-Minerals (MULTIVITAMIN ADULT) TABS Take by mouth. 0 Suspended ferrous sulfate (FEOSOL) 325 (65 FE) MG Tablet Take 1 Tablet by mouth in the morning. 60 Tab 11 12/10/2019 Suspended docusate sodium (COLACE) 100 MG Capsule Take 1 Capsule by mouth in the morning and 1 Capsule before bedtime. Taking 5 capsules daily. . 60 Cap 5 12/10/2019 Suspended Calcium 500-125 MG-UNIT Oral Tablet Take 1 Tablet by mouth in the morning and 1 Tablet at noon and 1 Tablet in the evening. Take with meals. 0 Suspended Knee BraceIndications: Knee instability, right,Flaccid hemiplegia affecting right dominant side, unspecified etiology (HCC) Right knee brace To be evaluated by Tao at [facility] 1 Each 0 01/20/2022 Suspended Additional Information diazePAM 10 MG Rectal Gel (Diastat) ADMINISTER 5 MG INTO THE RECTUM NEEDED FOR PROLONGED SEIZURE. TAKE 5 MG EVERY 12 HOURS NEEDED SEIZURE AFTER FALLING. TAKE WITH ATIVAN X 2 1 Each 2 05/09/2022 Suspended Additional Information levETIRAcetam 1000 MG Oral Tablet TAKE ONE TABLET BY MOUTH TWO TIMES A DAY WITH 250 MG TABLET DIRECTED 180 Tablet 5 08/15/2022 4 Suspended Additional Information Divalproex Sodium ER 500 MG Oral Tablet Extended Release 24 Hour (Depakote ER) TAKE ONE TABLET BY MOUTH IN THE MORNING AND TAKE ONE TABLET BEFORE BEDTIME 200 Tablet 1 12/14/2022 4 Suspended Additional Information LORazepam 1 MG Oral Tablet (Ativan) Take 1 tablet every 5 minutes as needed for seizure if awake for 2 doses 30 Tablet 1 01/31/2023 Suspended Additional Information levETIRAcetam 250 MG Oral Tablet (Keppra) TAKE TWO TABLETS BY MOUTH EVERY MORNING AND TAKE ONE TABLET BY MOUTH EVERY EVENING WITH A 1000MG TABLET DIRECTED 300 Tablet 1 05/26/2023 4 Suspended Additional Information traMADol HCl 50 MG Oral Tablet (Ultram)Indicatio ns:Right foot pain Take 1 Tablet by mouth every 8 hours as needed for Pain, Severe. 60 Tablet 0 06/02/2023 4 Suspended Additional Information Breo Ellipta 200-25 MCG/ACT Inhalation Aerosol Powder Breath ActivatedIndicati ons:Chronic respiratory failure with hypoxia (HCC) INHALE ONE PUFF BY MOUTH EVERY DAY 180 Each 3 06/09/2023 5 Suspended Additional Information Incruse Ellipta 62.5 MCG/ACT Inhalation Aerosol Powder Breath Activated (umeclidinium [place])Indicatio ns:Chronic respiratory failure with hypoxia (HCC) INHALE ONE PUFF BY MOUTH EVERY DAY 90 Each 3 06/09/2023 5 Suspended Additional Information DULoxetine HCl 20 MG Oral Capsule Delayed Release Particles (Cymbalta) Take 1 Capsule by mouth in the morning. Do not cut, crush or chew. 100 Capsule 1 06/20/2023 Suspended Additional Information Atorvastatin Calcium 20 MG Oral Tablet (Lipitor) TAKE ONE TABLET BY MOUTH EVERY MORNING 100 Tablet 0 06/27/2023 5 Suspended Additional Information Divalproex Sodium ER 250 MG Oral Tablet Extended Release 24 Hour (Depakote ER) TAKE ONE TABLET BY MOUTH IN THE MORNING AND TAKE ONE TABLET BY MOUTH BEFORE BEDTIME 180 Tablet 0 08/11/2023 5 Suspended Additional Information Metoprolol Succinate ER 25 MG Oral Tablet Extended Release 24 Hour (toPROL XL) TAKE ONE TABLET BY MOUTH EVERY DAY IF SYSTOLIC BLOOD PRESSURE IS 100 OR HIGHER 100 Tablet 3 08/12/2023 5 Suspended Additional Information Furosemide 40 MG Oral Tablet (Lasix) TAKE ONE TABLET BY MOUTH EVERY DAY 100 Tablet 0 09/02/2023 5 Suspended Additional Information documented as of this encounter (statuses as of 09/11/2023) Active Problems Problem Noted Date Diagnosed Date Seizure-like activity 09/08/2023 CHAPO (generalized anxiety disorder) 08/01/[address] [place] co ronary artery without angina pectoris 06/23/2022 [...] as of this encounter (statuses as of 09/11/2023) Resolved Problems Problem Noted Date Diagnosed Date [...] as of this encounter (statuses as of 09/11/2023) Immunizations Name Administration Dates Next Due COVID-19 mRNA, LNP-s, No Pre serve, 2-Dose Series ([employer]) 04/14/2021,09/10/2020,08/13/2020 COVID-19, LNP-s, No Preserve , Tom-sucrose, Ages 12+ (Pfizer) 12/21/2021 COVID-19, MRNA-LNP, 23-24, P F, 30 MCG/0.3 mL, 12 YRS AND ABOVE, IM (PFIZER-Comirnaty) 04/11/2023 Covid-19, Mrna, Lnp-s, Pf, B ivalent, 30 Mcg, IM, 12 yrs and above ([employer]) 04/12/2022 Pneumococcal Conjugate Vacc, 13 Valent (Prevnar) [...] encounter Miscellaneous Notes * Telephone Encounter - Tanesha Ponce DO - 09/11/2023 1:16 PM EDT I certainly think it is reasonable for her to go to a rehabilitation center for a bit to work on strength. Does he have specific questions? * Telephone Encounter - Verónica Clancy OSA - 09/11/2023 12:36 PM EDT Pt calling stating patient is being discharged into rehab for mobility, however; would liketo get Dr Ponce's thoughts before making any decisions. He is asking someone call him at [phone] documented in this encounter Plan of Treatment Upcoming Encounters Date Type Department Care Team (Late st Contact Info) Description 10/03/2023 9:00 AM EDT Office Visit Neurosurgery, [place] [address] [place] [address] Nito Meeks MD [address] [place] [address] 10/10/2023 2:00 PM EDT Office Visit Otolaryngology [facility] 132 [facility] [place] [address] Nish Glynn, DO 132 [facility] [place] [address] 10/13/2023 11:20 AM EDT Office Visit Family Practice 65 [facility] 293 [place] [address] Tanesha Ponce, DO 293 [facility] [place] [address] 10/19/2023 10:40 AM EDT Office Visit Podiatry [facility] 132 [facility] [place] [address] Laura Owen, DPM [facility] [address] 03/12/2024 1:00 PM EDT Nurse Only Ancillary 65 [facility] 293 [facility], [place] [address] College, Nurse Annual Wellness Visit [address], [place] [address] Health Maintenance Due Date Last Done Comments DXA Scan 1945 Alpha-1 Antitrypsin 1964 O2 ASSESSMENT COMPLETED IN PAST YEAR FOR COPD 09/08/2024 09/09/2023 DTaP,Tdap,and Td Vaccines (2 - Td or Tdap) 02/02/2028 02/01/2018 Pneumococcal Vaccine: 65+ Years Completed 05/04/2016, 05/10/2015, 04/22/2015, Additional history exists LUNG CANCER SCREENING - USE SMARTSET 28413 Completed 08/21/2020, 01/29/2020, 07/18/2019, Additional history exists Zoster Vaccines Completed 12/07/2021, 04/0 10/2021, 04/12/2012 Influenza Vaccine (FLU shot) Completed [...] Inactivated Comments Full Code 09/08/2023 1:24 AM This order reflects the patients wishes and [...] the patient have Health Care Power of [place]? No Full Code 04/11/2018 3:26 PM 04/13/2018 6:58 PM This order reflects the patients wishes and were consensually agreed upon. Question Answer Comments Discussion of Advance Directives occurred with: Patient Does the patient have a Living Will? No Does the patient have Health Care Power of [place] F[place]? No Healthcare Agents on File Name Relationship Healthcare Agent Relationship Communication Davide Godinez [facility] Health Care [facility] er of Sand Filler [phone] ([email or web address] [email or web address] Care Teams Descriptive Catalog Librarian Relationship Specialty Start Date End Date Tanesha Ponce DO [address] [place] [address], [place] [address] PCP - General Family Medicine 02/12/23 documented as of this encounter
--- OUTSIDE RECORDS SUMMARY | 2023-09-26 21:30 | External Medical Summary | Summary of Care ---
Author Name Unknown Organization [facility] Address [address] [place] [address] Phone [phone] Care Team Providers Care Field Services Analyst Name Role Phone Tanesha Ponce Primary Care Provider [phone] Encounter Details Date Type Department Care Team (Late st Contact Info) Description 09/11/2023 Documentation Neurosurgery, [place] [address] [place] [address] Lyn De Jesus RN Allergies Active Allergy Reactions Criticality Noted Date Comments Ciprofloxacin Seizure High 08/06/2019 Morphine 08/09/2018 Other Allergy (See Comments) 01/30/2018 ALCOHOL & OPIOIDS Sulfa Antibiotics 10/31/2014 Hives/rash Lacosamide Other (Please comment) High 04/02/2019 Developed resp distress, breathing slowed and became unresponsive. documented as of this encounter (statuses as of 09/12/2023) Medications Medication Sig Dispensed Refills Start Date [...] brace To be evaluated by Tao at [facility] 1 Each 0 01/20/2022 Suspended Additional Information [...] MCG/ACT Inhalation Aerosol Powder Breath Activated (umeclidinium [place])Indicatio ns:Chronic respiratory failure with hypoxia (HCC) INHALE [...] as of this encounter (statuses as of 09/12/2023) Active Problems Problem Noted Date Diagnosed Date Seizure-like activity 09/08/2023 CHAPO (generalized anxiety disorder) 08/01/2023 Atherosclerosis of [place] co ronary artery without angina pectoris 06/23/2022 Claustrophobia 06/23/2022 PVD (peripheral vascular disease) 12/15/2021 COPD, group B, by GOLD 2017 classification 07/19 Overview: Per COPD GOLD Classification Encounter for antineoplastic chemotherapy 2020 Alcoholism in recovery 01/08/2021 Old DC (myocardial infarction) 12/10/2019 Moderate major depression 06/18/2019 [...] as of this encounter (statuses as of 09/12/2023) Resolved Problems Problem Noted Date Diagnosed Date [...] as of this encounter (statuses as of 09/12/2023) Immunizations Name Administration Dates Next Due COVID-19 mRNA, LNP-s, No Pre serve, 2-Dose Series ([employer]) 04/14/2021,09/10/2020,08/13/2020 COVID-19, LNP-s, No Preserve , Tom-sucrose, Ages 12+ (Pfizer) 12/21/2021 COVID-19, MRNA-LNP, 23-24, P F, 30 MCG/0.3 mL, 12 YRS AND ABOVE, IM (PFIZER-Comirnaty) 04/11/2023 Covid-19, Mrna, Lnp-s, Pf, B ivalent, 30 Mcg, IM, 12 yrs and above (Pfizer) 04/12/2022 Pneumococcal Conjugate Vacc, 13 Valent (Prevnar) [...] Yes 09/08/2023 documented as of this encounter Progress Notes * Lyn De Jesus RN - 09/12/2023 9:29 AM EDT We discussed the case of Kathy Godinez on 09/11/2023 in our cerebrovascular conference with goals to evaluate the patient clinical presentation, review available brain/spine imaging, discuss diagnoses and management options as well as any potential barriers to care. Our team of providers routinely includes staff from the following disciplines: Neurosurgery, radiology, and neurology, and there is usually a combination of clinical trainees, nurses, and advanced practitioners from our local and regional care centers for an open discussion of the cases presented. While all input is considered in patient decision-making, this cerebrovascular conference is designed to provide evidence based and best practice options for our patients and is not intended to represent all possible approaches or conclusions. We also offer these cerebrovascular conference meetings for multidisciplinary discussion, education, and evaluation for potential clinical trials when approp riate. 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 Management plan- Consensus of the group in favor of treating seizures medically, treating residual feeder surgically? Surgeon/Attending Addendum: Dr. Meeks documented in this encounter Plan of Treatment Upcoming Encounters Date Type Department Care Team (Late st Contact Info) Description 10/03/2023 9:00 AM EDT [facility] [address] [place] [address] Nito Meeks MD [address] [place] [address] 10/10/2023 2:00 PM EDT Office Visit Otol[facility]ology [facility] 132 [facility] [place] [address] Nish Glynn, DO 132 [facility] [place] [address] 10/13/2023 11:20 AM EDT Office Visit Family Practice 65 [facility] 293 [place] [address] Tanesha Ponce, DO 293 [facility] [place] [address] 10/19/2023 10:40 AM EDT Office Visit Podiat[facility] [address] Laura Owen, DPLyla 132 [place] [address] 03/12/2024 1:00 PM EDT Nurse Only Ancillary 65 [facility] 293 [place] [address] College, Nurse Annual Wellness Visit [address] [place] [address] Health Maintenance Due Date Last Done Comments DXA Scan 1945 Alpha-1 Antitrypsin 1964 O2 ASSESSMENT COMPLETED IN PAST YEAR FOR COPD 09/08/2024 09/09/2023 DTaP,Tdap,and Td Vaccines (2 - Td or Tdap) 02/02/2028 02/01/2018 Pneumococcal Vaccine: 65+ Years Completed 05/04/2016, 05/10/2015, 04/22/2015, Additional history exists LUNG CANCER SCREENING - USE SMARTSET 44855 Completed 08/21/2020, 01/29/2020, 07/18/2019, Additional history exists [...] the patient have Health Care Power of [place] Inker? No Full Code 04/11/2018 3:26 PM 04/13/2018 6:58 PM This order reflects the patients wishes and were consensually agreed upon. Question Answer Comments Discussion of Advance Directives occurred with: Patient Does the patient have a Living Will? No Does the patient have Health Care Power of Edge Inker? No Healthcare Agents on File Name Relationship Healthcare Agent Relationship Communication Davide Godinez [facility] Health Care [facility] er of Edge Inker [email or web address] PNP [email or web address] Care Teams Field Services Analyst Relationship Specialty Start Date End Date Tanesha Ponce DO [address] [place] [id number] PCP - General Family Medicine 02/12/23 documented as of this encounter
--- OUTSIDE RECORDS SUMMARY | 2023-09-26 21:30 | External Medical Summary | Summary of Care ---
Author Name Unknown Organization [facility] Address [address] [place] [place] [facility] [place] [address] Phone [phone] Care Team Providers Care Rig Operator Name Role Phone Tanesha Ponce DO Primary Care Provider Reason for Visit * Reason Onset Date Comments Advice 09/11/2023 Rehab d/c Encounter Details Date Type Department Care Team (Late st Contact Info) Description 09/11/2023 Telephone Family Practice [address] [place] [address] [place] [phone] Tanesha Ponce DO [address] [place] [address] Advice (Rehab d/c) Allergies Active [...] brace To be evaluated by Tao at [facility] 1 Each 0 01/20/2022 [...] MCG/ACT Inhalation Aerosol Powder Breath Activated (umeclidinium [place])Indicatio ns:Chronic respiratory failure with hypoxia (HCC) INHALE [...] CHAPO (generalized anxiety disorder) 08/01/2023 Atherosclerosis of [place] co ronary artery without angina pectoris 06/23/2022 Claustrophobia 06/23/2022 PVD (peripheral vascular disease) 12/15/2021 COPD, group B, by GOLD 2017 classification 07/19 Overview: Per COPD GOLD Classification Encounter for antineoplastic chemotherapy 2020 Alcoholism in recovery 01/08/2021 Old [place] (myocardial infarction) 12/10/2019 Moderate major depression 06/18/2019 [...] mRNA, LNP-s, No Pre serve, 2-Dose Series ([employer]) 04/14/2021,09/10/2020,08/13/2020 COVID-19, LNP-s, No Preserve , Tom-sucrose, Ages 12+ (Pfizer) 12/21/2021 COVID-19, MRNA-LNP, 23-24, P F, 30 MCG/0.3 mL, 12 YRS AND ABOVE, IM (PFIZER-Comirnaty) 04/11/2023 Covid-19, Mrna, Lnp-s, Pf, B ivalent, 30 Mcg, IM, 12 yrs and above ([employer]) 04/12/2022 Pneumococcal Conjugate Vacc, 13 Valent [...] Miscellaneous Notes * Telephone Encounter - Clare Perez LPN - 09/11/2023 1:46 PM EDT No specific questions patient is currently in [place]. Patient is working with staff for [facility]. Thank you * Telephone Encounter - Tanesha Ponce DO [...] He is asking someone call him at [phone] documented in this encounter Plan of Treatment Upcoming Encounters Date Type Department Care Team (Late st Contact Info) Description 10/03/2023 9:00 AM EDT Office Visit Neurosurgery, [place] [address] [place] [address] Nito Meeks MD [address] [place] [address] 10/10/2023 2:00 PM EDT Office Visit Otolaryngology [facility] 132 [place] [address] Nish Glynn, DO 132 [place] [address] 10/13/2023 11:20 AM EDT Office Visit Family Practice 65 [facility] 293 [place] [address] Tanesha Ponce, DO [address] [place] [address] 10/19/2023 10:40 AM EDT Office Visit Podiatry [facility] 132 [place] [address] Laura Owen, WILMAR [address] [place] [address] 03/12/2024 1:00 PM EDT Nurse Only Ancillary [address] [place] [address] College, Nurse Annual Wellness Visit [address] [place] [address] Health Maintenance Due Date Last Done Comments DXA Scan 1945 Alpha-1 Antitrypsin 1964 O2 ASSESSMENT COMPLETED IN PAST YEAR FOR COPD 09/08/2024 09/09/2023 DTaP,Tdap,and Td Vaccines (2 - Td or Tdap) 02/02/2028 02/01/2018 Pneumococcal Vaccine: 65+ Years Completed 05/04/2016, 05/10/2015, 04/22/2015, Additional history exists LUNG CANCER SCREENING - USE SMARTSET 76685 Completed 08/21/2020, 01/29/2020, 07/18/2019, Additional history exists Zoster Vaccines Completed 12/07/2021, 04/10/2021, 04/12/2012 Influenza Vaccine (FLU shot) Completed 05/2023, [...] the patient have Health Care Power of [place] Master? No Full Code 04/11/2018 3:26 PM 04/13/2018 6:58 PM This order reflects the patients wishes and were consensually agreed upon. Question Answer Comments Discussion of Advance Directives occurred with: Patient Does the patient have a Living Will? No Does the patient have Health Care Power of Car [place]erry Master? No Healthcare Agents on File Name Relationship Healthcare Agent Relationship Communication Davide Godinez Spouse Health Care Pow er of Car Ferry Master [email or web address] Care Teams Rig Operator Relationship Specialty Start Date End Date Tanesha Ponce DO [address] [place] [address] PCP - General Family Medicine 02/12/23 documented as of this encounter
--- OUTSIDE RECORDS SUMMARY | 2023-09-26 21:30 | External Medical Summary ---
Author Name Unknown Address Unknown Organization K01:[facility] - [address] [place] [address] Laboratory Report Ordering Provider Test Date Status JASON PAIGE 09/12/2023 07:44:00 Final Observation Date Value Abnormality Reference (Units ) Status BUN 09/12/2023 07:44:00 21 Above high normal 6-20 (mg/dL) Final Creatinine 09/12/2023 07:44:00 0.7 0.5-1.0 (mg/dL) Final Glomerular filtration rate/1.73 sq M.predicted [Volume Rate/Area] in Serum, Plasma or Blood by Creatinine-based formula (CKD-EPI) 09/12/2023 07:44:00 86 >=60 (mL/min) Final eGFR is calculated based on the CKD-EPI 2020 equation Sodium 09/12/2023 07:44:00 140 135-146 (m mol/L) Final Potassium 09/12/2023 07:44:00 4.4 3.5-5.1 (m mol/L) Final Cl 09/12/2023 07:44:00 102 98-107 (mm ol/L) Final CO2 09/12/2023 07:44:00 31 22-32 (mmo l/L) Final Anion gap 09/12/2023 07:44:00 7 7-15 (mmol /L) Final Glucose 09/12/2023 07:44:00 91 70-120 (mg /dL) Final Calcium 09/12/2023 07:44:00 9.7 8.4-10.2 ( mg/dL) Final Performing Location [facility] [address] [facility] [address] [place] [address]
--- OUTSIDE RECORDS SUMMARY | 2023-09-26 21:30 | External Medical Summary | Summary of Care ---
Author Name Unknown Organization [facility] Address [address] [place] [address] Phone [phone] Care Team Providers [employer] Rep Name Role Phone JudithTanesha saldana Lyla MURILLO Primary Care Provider Reason for Visit * Auth/Cert Specialty Diagnoses / Procedures Referred By Asha montemayor Referred To Contact Diagnoses Seizure (HCC) seizure Ray Vaughn DO [address] [place] [address] Ap4 [facility] [address] [place] [address] Referral ID Status Reason Start Date Expiration Date Visits Re quested Visits Authorized [id number] Encounter Details Date Type Department Care Team (Latest Contact Info) Description 09/08/2023 1:10 AM EDT - 09/12/2023 2:07 PM EDT Hospital Encounter [id number] [facility] [place] 4TH FLOOR [address] [place] [address] Suzy Garcia MD [address] [place] [address] Tao Sandy MD [address] [place], [place] [id number] Skyler Alcantar MD [address] [place], [place] [id number] Discharge Disposition: IP Rehab Allergies Active Allergy Reactions Criticality Noted Date Comments Ciprofloxacin Seizure High 08/06/2019 Morphine 08/09/2018 Other Allergy (See Comments) 01/30/2018 ALCOHOL & OPIOIDS Sulfa Antibiotics 10/31/2014 Hives/rash Lacosamide Other (Please comment) High 04/02/2019 Developed resp distress, breathing slowed and became unresponsive. documented as of this encounter (statuses as of 09/13/2023) Medications Medication Sig Dispensed Refills Start Date End Date Status Acetaminophen (APAP) 325 MG Tablet Take 1 Tablet by mouth every 6 hours as needed for Pain. 0 Active Multiple Vitamins-Mineral s (MULTIVITAMIN ADULT) TABS Take by mouth. 0 Active ferrous sulfate (FEOSOL) 325 (65 FE) MG Tablet Take 1 Tablet by mouth in the morning. 60 Tab 11 0 Active docusate sodium (COLACE) 100 MG Capsule Take 1 Capsule by mouth in the morning and 1 Capsule before bedtime. Taking 5 capsules daily. . 60 Cap 5 0 Active Calcium 500-125 MG-UNIT Oral Tablet Take 1 Tablet by mouth in the morning and 1 Tablet at noon and 1 Tablet in the evening. Take with meals. 0 Active Knee BraceIndications :Knee instability, right,Flaccid hemiplegia affecting right dominant side, unspecified etiology (HCC) Right knee brace To be evaluated by Tao at [facility] 1 Each 0 2 Active diazePAM 10 MG Rectal Gel (Diastat) ADMINISTER 5 MG INTO THE RECTUM NEEDED FOR PROLONGED SEIZURE. TAKE 5 MG EVERY 12 HOURS NEEDED SEIZURE AFTER FALLING. TAKE WITH ATIVAN X 2 1 Each 2 2 Active Divalproex Sodium ER 500 MG Oral Tablet Extended Release 24 Hour (Depakote ER) TAKE ONE TABLET BY MOUTH IN THE MORNING AND TAKE ONE TABLET BEFORE BEDTIME 200 Tablet 1 3 12/14/19 24 Active LORazepam 1 MG Oral Tablet (Ativan) Take 1 tablet every 5 minutes as needed for seizure if awake for 2 doses 30 Tablet 1 3 Active traMADol HCl 50 MG Oral Tablet (Ultram)Indicati ons:Right foot pain Take 1 Tablet by mouth every 8 hours as needed for Pain, Severe. 60 Tablet 0 3 12/03/19 24 Active Breo Ellipta 200-25 MCG/ACT Inhalation Aerosol Powder Breath ActivatedIndicat ions:Chronic respiratory failure with hypoxia (HCC) INHALE ONE PUFF BY MOUTH EVERY DAY 180 Each 3 4 06/08/19 25 Active Incruse Ellipta 62.5 MCG/ACT Inhalation Aerosol Powder Breath Activated (umeclidinium [place])Indicati ons:Chronic respiratory failure with hypoxia (HCC) INHALE ONE PUFF BY MOUTH EVERY DAY 90 Each 3 4 06/08/19 25 Active DULoxetine HCl 20 MG Oral Capsule Delayed Release Particles (Cymbalta) Take 1 Capsule by mouth in the morning. Do not cut, crush or chew. 100 Capsule 1 4 Active Atorvastatin Calcium 20 MG Oral Tablet (Lipitor) TAKE ONE TABLET BY MOUTH EVERY MORNING 100 Tablet 0 4 06/26/19 25 Active Divalproex Sodium ER 250 MG Oral Tablet Extended Release 24 Hour (Depakote ER) TAKE ONE TABLET BY MOUTH IN THE MORNING AND TAKE ONE TABLET BY MOUTH BEFORE BEDTIME 180 Tablet 0 4 08/11/19 25 Active Metoprolol Succinate ER 25 MG Oral Tablet Extended Release 24 Hour (toPROL XL) TAKE ONE TABLET BY MOUTH EVERY DAY IF SYSTOLIC BLOOD PRESSURE IS 100 OR HIGHER 100 Tablet 3 4 08/12/19 25 Active Furosemide 40 MG Oral Tablet (Lasix) TAKE ONE TABLET BY MOUTH EVERY DAY 100 Tablet 0 4 09/02/19 25 Active cloBAZam 20 MG Oral Tablet (Onfi) Take 0.75 Tablet (3/4 tablet) by mouth in the morning. 30 Tablet 1 4 Active levETIRAcetam 1000 MG Oral Tablet Take 1.5 Tablets by mouth in the morning and 1.5 Tablets before bedtime. 180 Tablet 5 4 Active Cefdinir 300 MG Oral Capsule (Omnicef) Take 1 Capsule by mouth in the morning and 1 Capsule before bedtime. Do all this for 3 days. 6 Capsule 0 4 09/15/19 24 Active levETIRAcetam 1000 MG Oral Tablet TAKE ONE TABLET BY MOUTH TWO TIMES A DAY WITH 250 MG TABLET DIRECTED 180 Tablet 5 3 09/12/19 24 Discontinued levETIRAcetam 250 MG Oral Tablet (Keppra) TAKE TWO TABLETS BY MOUTH EVERY MORNING AND TAKE ONE TABLET BY MOUTH EVERY EVENING WITH A 1000MG TABLET DIRECTED 300 Tablet 1 3 09/12/19 24 Discontinued cefTRIAXone IV IJ (AMBULATORY) Administer 1 g intravenously daily for 3 days. 3 g 0 4 09/12/19 24 Discontinued documented as of this encounter (statuses as of 09/13/2023) Active Problems Problem Noted Date Diagnosed Date Seizure-like activity 09/08/2023 CHAPO (generalized anxiety disorder) 08/01/2023 Atherosclerosis of [place] co ronary artery without angina pectoris 06/23/2022 Claustrophobia 06/23/2022 PVD (peripheral vascular disease) 12/15/2021 COPD, group B, by GOLD 2017 classification 07/19 Overview: Per COPD GOLD Classification Encounter for antineoplastic chemotherapy 2020 Alcoholism in recovery 01/08/2021 Old MD (myocardial infarction) 12/10/2019 Moderate major depression 06/18/2019 [...] as of this encounter (statuses as of 09/13/2023) Resolved Problems Problem Noted Date Diagnosed Date [...] as of this encounter (statuses as of 09/13/2023) Immunizations Name Administration Dates Next Due COVID-19 mRNA, LNP-s, No Pre serve, 2-Dose Series ([employer]Play) 04/14/2021,09/10/2020,08/13/2020 COVID-19, LNP-s, No Preserve , Tom-sucrose, Ages 12+ ([employer]Play) 12/21/2021 COVID-19, MRNA-LNP, 23-24, P F, 30 MCG/0.3 mL, 12 YRS AND ABOVE, IM ([employer]-Comirnaty) 04/11/2023 Covid-19, Mrna, Lnp-s, Pf, B ivalent, [...] on file documented as of this encounter Last Filed Vital Signs Vital Sign Reading Time Taken Comments Blood Pressure 129/66 09/12/2023 10:28 AM EDT Pulse 74 09/12/2023 10:28 AM EDT Temperature 35.9 C (96.6 F) 09/12/2023 6:24 AM ED T Respiratory Rate 18 09/12/2023 10:28 AM EDT Oxygen Saturation 99% 09/12/2023 10:28 AM EDT Inhaled Oxygen Concentration - - Weight 93.9 kg (207 lb 0.2 oz) 09/08/2023 1:13 A M EDT Height 157.5 cm (5' 2") 09/08/2023 1:13 AM EDT Body Mass Index 37.86 09/08/2023 1:13 AM EDT documented in this encounter Functional Status Functional Status Response [...] Yes 09/08/2023 documented as of this encounter Discharge Summaries * Robson Pan MD - 09/12/2023 12:05 PM EDT Images from the original note were not included. [address] [address] Admission Date: 09/08/2023 Discharge Date: 09/12/2023 RECOMMENDED TO DO FOR NEXT PROVIDER(S): Ensure patients UTI symptoms have resolved Ensure patient has Outpatient Neurology and Neurosurgery follow up. Medication Changes START Onfi 15 mg BID Increase VENEER SPLICER keppra to 1500 mg BID Start CTX for 3 days for UTI to end on 09/14/2023 SCHEDULED FOLLOW-UP: Future Appointments Appt Date/Time Provider Department 10/03/2023 9:00 AM [facility]10/2023 2:00 PM Nish Glynn DO Otolaryngology [facility] 10/13/2023 11:20 AM Tanesha Ponce DO Family Practice [address] [facility] 10/19/2023 10:40 AM Laura Owen DPM Podiatry [facility] 03/12/2024 1:00 PM College, Nurse Annual Wellness Visit [facility] 65 [facility] DISPOSITION ON DISCHARGE: rehab: [facility] DISCHARGE DIAGNOSES: Active Hospital Problems Diagnosis *Principal Diagnosis - Seizure-like activity (HCC) Atherosclerosis of [place] coronary artery without angina pectoris PVD (peripheral vascular disease) ([facility]) COPD, group B, by GOLD 2017 classification (HCC) Old MD (myocardial infarction) Oxygen dependent AVM (arteriovenous malformation) brain Resolved Hospital Problems No resolved problems to display. 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 Given a dose of ativan at home by , then prior to next dose of ativan started staring off into space. At [facility] noted to have aphasia and was stroke alerted. NIHSS 19 for questions, commands, gaze palsy, RUE, RLE, LLE, ataxia, sensory, aphasia, and dysarthria. Per recommendations from [place] telestroke following normal CTA, loaded with Keppra at 1100hrs on 09/06 and transferred for LTM EEG. Per [facility] paper chart, patient's mentioned she had a left-sided headache for the last 4 dayswhich is abnormal for her. Patient is wheelchair bound at baseline. Cannot move RLE antigravity perhusband which is a chronic finding. Patient did not miss any medications and has had no recent illnesses. Per outpatient note with neurology on 11/08/22 patient has 2 seizure semiologies. One is a GTC with head turned to the right causing post-ictal right sided weakness, aphasia, and dysarthria. The other type is right foot tapping that can progress up the right leg, easily aborted with ativan. General Examination: Constitutional: Appearance no deformities and in bed Head/face, ears, nose, throat: normocephalic and atraumatic, ears, nose and lips normal appearing, and oral mucosa nonerythematous Eyes: normal lids, normal sclerae, and normal conjunctivae Neck: supple, symmetric,thyroid normal Respiratory: normal effort on supplemental O2 Cardiovascular: regular rate Abdomen: non distended and soft Skin: no rashes, lesions or ulcers Psychiatric: normal mood, normal affect, and not agitated Neurologic Examination: Ophthalmoscopic: deferred due to inadequate dilation Mental Status and Orientation: oriented to person and place, through it was 2014 but knew it was September Memory: poor Attention: diminished Knowledge:normal Language: can repeat, can name, can follow most commands, consistent with an anomic aphasia; struggles with complex sentences and can occasionally not say words correctly Speech: no dysarthria Cranial Nerves: CN 2 - no visual defect on confrontation and pupils round, equal, reactive to light CN 3, 4, 6 - extra-ocular movements intact CN 5 - facial sensation intact V1-3 CN 7 - no facial asymmetry CN 8 - intact hearing CN 9, 10 - cough intact CN 11 - shoulder shrug full strength CN 12 - tongue protrudes midline Sensory: intact to light touch Coordination: intact with finger to nose testing Gait: deferred due to fall risk, wheelchair bound Muscle Tone: normal Muscle exam: see stroke scale Reflexes: Brachioradialis Biceps Patellar Odilia's Right 2+ 2+ 2+ not present Left 2+ 2+ 1+ not present Knee jerk on right is likely hyperreflexic in the setting of asymmetry with reduced left knee jerk RLE stimulus induced clonus HOSPITAL COURSE (focused): Patient is a 78yo F with PMHx of AVM s/p radiation w/residual RLE weakness and focal epilepsy that presented as a transfer from [facility] for evaluation and management of breakthrough seizure. Patient reported having breakthrough events very infrequently. She has not missed any medications and has not felt ill recently. CTH demonstrated calcific changes at the AVM site without hemorrhage or acute stroke, CTA negative for LVO. She was taken for a DSA on 09/08 which appeared stable. On LTM EEG patient was noted to have many brief seizures which continued every few hours without clinical correlate. Patient was started on Onfi following which resolved the seizures. Patient was found to have UTI and was started on CTX to end on 08/14/2023. Etiology of breakthrough seizure thought to be UTI. Patient reported worsening of baseline RLE weakness while admitted and was discharged to [facility] for rehab. Treatment: Therapy needs were identified with recommendations as follows: . P.T. - Pt is 78 year old female presenting with seizure. Pt seen on this date for initial evaluation. Prior to admission, pt reports living in bi-level house with 1st floor bedroom and bathroom (rampto enter) with who is able to assist if needed. Pt reports she typically uses manual wheelchair when in the house and electric wheelchair when in the community. Pt transfers to her wheelchairvia stand pivot or taking a few steps on her own in the morning, but needs her 's assistancefurther in the day as she gets weaker. Pt is able to self-propel her wheelchair. Pt has a lift chair that she sleeps in and uses to stand. Pt and her report her right ankle rolls and right knee hyperextends at baseline, but she is unable to tolerate any brace or wrap. During session, pt wascooperative. Upon initial evaluation, pt was able to perform sit to stand transfers from chair withmodA x2 and ambulated 3 ft to commode to her left with modA x2 and no device. Pt was unsteady and required assistance to weight shifting and advance B/L LE, R moreso than L. When finished, pt performed sit to stand transfers from commode modA x2 and ambulated 3 ft to chair to her R with maxA x2. Pthad significantly more trouble going to her R. Following session, pt positioned in chair with alarmand call sky in reach. Cord plugged into call sky system. Pt presents with deficits in strength, endurance, mobility, ambulation, and balance, all of which are currently negatively impacting pt's quality of life. Pt would continue to benefit from skilled PT services while inpatient at [facility] established goals and address deficits. Pt is not safe to return home at this time due to current functional mobility status and requiring modA x2 to maxA x2 for all mobility. Discussed this with pt and family. Please consider post-acute care services which may include home health, snf, outpatient therapy or inpatient rehabilitation. The level of care will be determined in collaboration with patient, family/caregiver and care team members. All needs met. O.T. - Assessment: Patient was admitted to [facility] on 09/08/23 for seizure-like activity. Patient was cooperative and agreeable to participate in OT evaluation this date. Prior to admission patient was requiring assistance with ADLs and uses a manual (or electric when in community) wheelchair at baseline. She typically transfers via stand-pivot with assist from . She can complete UB ADLs and feeds herself however has assistance with LB ADLs. She sleeps in a recliner at baseline. During session patient required modA x2 for sit/stand transfers. She completed functional mobility of 3ft to commode with modA x2 (pivoting towards left which is her stronger side due to RLE weakness). She required total assist for toileting/hygiene while standing, still requiring assist x2 to maintain balance.In addition, pt engaged in 3ft mobility back to chair (moving to R) and required maxA x2 with greater difficulty moving to R side. Assist x2 given to weight-shift to allow patient to advance RLE. Of note, R knee hyperextends and pt reports weakness at ankles (rolling it several times before). She has previously tried braces but none have worked for her and caused discomfort. Once in chair pt attempted to scoot self back however did end up requiring assistance to boost buttocks back. Following session pt in chair with all needs met. Educated patient and on additional rehab following hos pital stay. Currently, patients presents with deficits in ADLs and functional mobility, as well as decreased strength, decreased endurance, decreased balance and safety. Patient would benefit from continued OT services to improve independence in ADLs and functional mobility. When medically appropriate, Please consider post-acute care services which may include home health, snf, outpatient therapy or inpatient rehabilitation. The level of care will be determined in collaboration withpatient, family/caregiver and care team members. DSA: Pre-op Diagnosis: Arteriovenous malformation, left parietal, s/p SRS 2018. Seizures. 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 Residual main feeding arterial pedicle of A3 segment of the left HALLE to the AVM. This is measuring 4.8 mm (height) x 3 mm (width) x 3.4 mm (neck). Otherwise unremarkable diagnostic cervico-cerebral angiogram. Operation: 6-vessel cerebral angiogram Test Results Still Pending at Discharge: none MEDICATIONS: MEDICATION UPDATES AT DISCHARGE START taking these medications INSTRUCTIONS cefTRIAXone IV (AMBULATORY) Commonly known as: Rocephin Administer 1 g intravenously daily for 3 days. cloBAZam 20 MG Tabs Commonly known as: Onfi Start taking on: September 13, 2023 Take 0.75 Tablets by mouth in the morning. CHANGE how you take these medications INSTRUCTIONS Levetiracetam 1000 MG Tablet What changed: how much to take how to take this when to take this Another medication with the same name was removed. Continue taking this medication, and follow the directions you see here. Take 1.5 Tablets by mouth in the morning and 1.5 Tablets before bedtime. CONTINUE taking these medications INSTRUCTIONS APAP 325 MG Tablet Take 1 Tablet by mouth every 6 hours as needed for Pain. atorvaSTATin 20 MG Tablet Commonly known as: Lipitor TAKE ONE TABLET BY MOUTH EVERY MORNING BREO ellipta 200-25 MCG/ACT Aepb Generic drug: fluticasone furoate-vilanterol INHALE ONE PUFF BY MOUTH EVERY DAY Calcium 500-125 MG-UNIT Tablet Take 1 Tablet by mouth in the morning and 1 Tablet at noon and 1 Tablet in the evening. Take with meals. diazePAM 10 MG Gel Commonly known as: Diastat ADMINISTER 5 MG INTO THE RECTUM NEEDED FOR PROLONGED SEIZURE. TAKE 5 MG EVERY 12 HOURS NEEDEDSEIZURE AFTER FALLING. TAKE WITH ATIVAN X 2 * divalproex ER 500 MG Tb24 Commonly known as: Depakote ER TAKE ONE TABLET BY MOUTH IN THE MORNING AND TAKE ONE TABLET BEFORE BEDTIME * divalproex ER 250 MG Tb24 Commonly known as: Depakote ER TAKE ONE TABLET BY MOUTH IN THE MORNING AND TAKE ONE TABLET BY MOUTH BEFORE BEDTIME Docusate Sodium 100 MG Capsule Commonly known as: Colace Take 1 Capsule by mouth in the morning and 1 Capsule before bedtime. Taking 5 capsules daily. . DULoxetine 20 MG Cpep Commonly known as: Cymbalta Take 1 Capsule by mouth in the morning. Do not cut, crush or chew. Ferrous Sulfate 325 (65 FE) MG Tablet Commonly known as: Feosol Take 1 Tablet by mouth in the morning. Furosemide 40 MG Tablet Commonly known as: Lasix TAKE ONE TABLET BY MOUTH EVERY DAY INCRUSE ellipta 62.5 MCG/ACT Aepb Generic drug: umeclidinium [place] INHALE ONE PUFF BY MOUTH EVERY DAY Knee Brace Misc Right knee brace To be evaluated by Tao at [facility] LORazepam 1 MG Tablet Commonly known as: Ativan Take 1 tablet every 5 minutes as needed for seizure if awake for 2 doses metoprolol succinate XL 25 MG Tb24 Commonly known as: toPROL XL TAKE ONE TABLET BY MOUTH EVERY DAY IF SYSTOLIC BLOOD PRESSURE IS 100 OR HIGHER Multivitamin Adult Tabs Take by mouth. traMADol 50 MG Tablet Commonly known as: Ultram Take 1 Tablet by mouth every 8 hours as needed for Pain, Severe. * This list has 2 medication(s) that are the same as other medications prescribed for you. Read thedirections carefully, and ask your doctor or other care provider to review them with you. Operations & Procedures: none Complications: none significant OTHER INFORMATION: Vital Signs (last recorded): Most Recent Systolic BP: 129 mmHg (09/12/23 102) Most Recent Diastolic BP: 66 mmHg (09/12/23 102) Pulse: 74 (09/12/23 102) Resp: 18 (09/12/231027) Most Recent Temperature: 36.11 C (09/12/23 102) Weight: 93.9 kg (207 lb 0.2 oz) (09/08/23 0113) SpO2: 99 % (09/12/23 102) O2 flow rate: 2 L/MIN (09/12/23 0800) Allergies: Ciprofloxacin, Vimpat [lacosamide], Morphine, Other allergy (see comments), and Sulfa antibiotics Activity: as tolerated Diet: age appropriate diet Code Status: Full Code Condition on Discharge: stable Indwelling Devices: none Isolation status: None Cognition: normal CONSULTS ORDERED: NEUROSURGERY CONSULT IP ADULT PHYSICAL THERAPY CONSULT IP ADULT OCCUPATIONAL THERAPY CONSULT IP REFERRING PHYSICIAN: Ref: BONIFACIO PITT[[id number]] [address] [place] [address] (office) [phone] (fax) PRIMARY CARE PROVIDER: PCP: DO Jono [facility] [address] (office) [phone] (fax) Note: To contact a physician responsible for this patients hospital care, please call [facility] [phone]. Associated attestation - Skyler Alcantar MD - 09/12/2023 12:24 PM EDT I saw and evaluated the patient today. I have reviewed the trainee note and agree. I spent a total of less than 30 minutes providing discharge day management for this patient. The management includedfinal examination of the patient, discussion of the hospital stay with the patient and/or caregivers, and preparation of discharge records, prescriptions, and referral forms that relate to the patient's hospital stay. This time is reflective of my part in the discharge day management as documented in the summary and notes, and doesn't include resident or other providers time providing the above to the patient. documented in this encounter Discharge Instructions * Discharge Instr - AVS* Robson Pan MD - 09/12/2023 11:55 AM EDT Discharge Date: 09/12/2023 Brief summary of inpatient care: Kathy Godinez was admitted to [facility] on 09/08/2023 with breakthrough seizure Patient is a 78yo F with PMHx of AVM s/p radiation w/residual RLE weakness and focal epilepsy that presented as a transfer from [facility] for evaluation and management of breakthrough seizure. Patient reported having breakthrough events very infrequently. She has not missed any medications and has not felt ill recently. CTH demonstrated calcific changes at the AVM site without hemorrhage or acute stroke, CTA negative for LVO. She was taken for a DSA on 09/08 which appeared stable. On LTM EEG patient wasnoted to have many brief seizures which continued every few hours without clinical correlate. Patient was started on Onfi following which resolved the seizures. Patient was found to have UTI and was started on CTX to end on 08/14/2023 The primary diagnosis at discharge was Breakthrough seizure. Kathy Godinez is being discharged to [facility]. The physician(s) at the time of discharge included: Skyler Alcantar MD MEDICATION CHANGES: START taking Onfi 15 mg twice daily Increase Keppra to 1500 mg twice daily Start Ceftriaxone 1 gram daily for 3 days (to end on 09/14/2023) To reach this Provider Monday through Monday (8:00 AM to 4:30 PM) for any questions or test results: Call [phone] For after-hours concerns: Call [phone] and have your provider paged, or the provider recreational programs director for the Department of Hospital Medicine paged. Inpatient test results pending: none Operations & Procedures: Digital subtraction angiogram Code Status: Full Code Advanced Care Plans: Full code Advance Directive Documentation: Advance Directive Does the Patient have an Advance Directive? Yes Diet: Normal diet Activity: Per neurosurgery: No lifting over 10 pounds x 1 week No tubs, macias, pools x 2 weeks Will follow up in clinic in 2-3 weeks Kathy should continue the following therapies: Physical Therapy and Occupational Therapy Additional Precautions: none Isolation Status: None Mentation at Discharge: normal PRIMARY CARE PROVIDER: PCP: Tanesha Ponce, [address] [facility] [address] (office) [phone] (fax) Special Instructions: Come to the ED if you have recurrent seizure like activity. documented in this encounter Progress Notes * Robson Pan MD - 09/12/2023 11:47 AM EDT PROGRESS NOTE - [facility] [facility] [address] Name: Kathy Godinez Location: [facility] A479/A Date: 09/12/2023 Time: 11:47 AM SUBJECTIVE: Kathy Godinez is a 78 year old patient initially seen by Neurology for breakthrough seizure in the setting of a known AVM. Changes since last visit: No acute overnight events. This morning patient is doing well. Patient isawaiting rehab placement. Offers no acute concerns. Admits to dysuria. Pertinent past medical history: Past Medical History: Diagnosis Date 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 COPD (chronic obstructive pulmonary disease) ([facility]) Quit smoking 2010 History of alcohol abuse Seizure-like activity (HCC) 09/08/2023 Pertinent past social history: Social History Tobacco Use Smoking status: Former Current packs/day: 0.00 Average packs/day: 1 pack/day for 46.0 years (46.0 ttl pk-yrs) Types: Cigarettes Start date: 10/26/1964 Quit date: 10/26/2010 Years since quittin.8 Passive exposure: Past Smokeless tobacco: Never Vaping Use Vaping Use: Never used Substance Use Topics Alcohol use: No Comment: Pt had previous history of alcohol abuse- she has not had a drink in 22 years Drug use: No OBJECTIVE: Physical Examination Most Recent Vital Signs: BP: 129 mmHg/66 mmHg (09/12/23 1028) Pulse: 74 (09/12/23 1028) Temp: 36.11 C (09/12/23 1028) Temp Summary: Temp Min: 35.9 C (96.6 F) Max: 36.7 C (98.1 F) Invasive Temp Min: 36.1 C (97 F) Max: 36.1 C (97 F) SpO2: 99 % (09/12/23 1028) O2 flow rate: 2 L/MIN (09/12/23 0800) Supplemental O2 Delivery: Nasal Cannula (09/12/23 1028) Weight: 93.9 kg (207 lb 0.2 oz) (09/08/23112) Height: 157.5 cm (5' 2") (09/08/23112) Body mass index is 37.86 kg/m. Vital Signs Last 24 Hours: Systolic BP: Most Recent Systolic BP Av.8 mmHg Min: 124 mmHg Max: 149 mmHg Temperature: Most Recent Temperature Av.4 C Min: 35.89 C Max: 36.72 C Pulse: Pulse Av.7 Min: 67 Max: 93 Respirations: Resp Av Min: 18 Max: 18 SpO2: SpO2 Av.5 % Min: 97 % Max: 99 % General Examination: Constitutional: appearance normally developed, no deformities, and well groomed Head and Face: normocephalic and atraumatic Eyes: normal lids, normal schlera, and normal conjunctiva Respiratory: normal effort Skin: no rashes, lesions, or ulcers noted Psychiatric: normal judgement and insight, normal mood, and normal affect Neurologic Examination: Appearance: no acute distress Orientation: awake, alert and oriented x 3 Mental Status: alert Knowledge: appropriate Language: no aphasia Speech: no dysarthria Cranial Nerves: CN 2 - no visual defect on confrontation and pupils round, equal, reactive to light CN 3, 4, 6 - extra-ocular movements intact and no nystagmus CN 5 - facial sensation intact CN 7 - no facial asymmetry CN 8 - intact hearing CN 9, 10 - palate symmetric CN 11 - good shoulder shrug CN 12 - tongue midline Gait: Deferred Coordination: no ataxia with finger to nose testing Sensory: intact and symmetric to light touch Muscle Tone: normal Muscle Exam: 5/5 throughout. RLE unable to lift from bed (chronic finding) LABS: Labs reviewed as indicated below: Recent Results (from the past 12 hour(s)) BASIC METABOLIC PANEL Collection Time: 09/12/23 7:44 AM Result Value Ref Range BUN 21 (H) 6 - 20 mg/dL Creatinine 0.7 0.5 - 1.0 mg/dL Estimated Glomerular Filtration Rate 86 >=60 mL/min Sodium 140 135 - 146 mmol/L Potassium 4.4 3.5 - 5.1 mmol/L Chloride 102 98 - 107 mmol/L CO2 31 22 - 32 mmol/L Anion Gap 7 7 - 15 mmol/L Glucose 91 70 - 120 mg/dL Calcium 9.7 8.4 - 10.2 mg/dL CBC Collection Time: 09/12/23 7:44 AM Result Value Ref Range WBC 5.88 4.00 - 10.80 K/uL RBC 3.58 3.85 - 5.15 M/uL HGB 12.1 12.0 - 15.3 g/dL HCT 37.8 36.0 - 45.2 % MCV 105.6 81.5 - 97.5 fL MCH 33.8 27.0 - 34.0 pg MCHC 32.0 32.0 - 36.0 g/dL RDW 12.7 11.5 - 15.5 % PLT 208 140 - 400 K/uL MPV 8.8 6.6 - 11.1 fL nRBCs 0 <=0 /100 WBCs Review of prior Diagnostic Tests, Imaging, and Labs: DSA 09/09/23: MPRESSION: S/P angiogram: 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 Residual main feeding arterial pedicle of A3 segment of the left HALLE to the AVM. This is measuring 4.8 mm (height) x 3 mm (width) x 3.4 mm (neck). CTH 09/07/23 - without evidence of acute hemorrhage or stroke, noted calcific changes to AVM in L parietal lobe along the falx cerebri CTA 09/07/23 - no LVO noted LTM EEG Study Start Date/Time: 09/08/2023, 404 Study End Date/Time: 09/09/2023, 399 Summary of Findings: Abnormal: This EEG is abnormal due to the presence of: Approximately 1-3 Left parietal electrographic seizures per hour, last at 0350 on 09/09/2023 Frequent left temporal slowing, indicative of focal dysfunction in this region Mild generalized slowing, indicative of nonspecific global dysfunction IMPRESSION: Patient is a pleasant 78yo F with PMHx of AVM s/p radiation w/residual RLE weakness and focal epilepsy that presented as a transfer from [facility] for evaluation and management of breakthrough seizure. Patient reported having breakthrough events very infrequently. She has not missed any medications and h as not felt ill recently, however reported that she had a new headache over the last few days. CTH demonstrated calcific changes at the AVM site without hemorrhage or acute stroke, CTA negative for LVO. On evaluation patient was still having some aphasia however NIHSS much improved from previous 19 recorded at [facility]. She was taken for a DSA on 09/08 which appeared unchanged. On LTM EEG patient was noted to have many brief seizures, however has seemed to stop around 0547. Unfortunately verybrief seizures continued again around 14:59 and has continued every few hours without clinical correlate. Unsure if this is her seizure baseline. LTM was left on for one more night and fortunately sei zures have finally stopped. Suspect Onfi needed time to work. Awaiting rehab placement at this time. RECOMMENDATIONS / PLAN: LRE in the setting of an AVM - Will place referral to epilepsy surgery at [place] - S/p Keppra 2g at [facility] on 09/06 - Increased VENEER SPLICER Keppra from 1500 mg qAM and 1250mg qHS to 1500 mg BID (max dose for CrCl) - C/w VENEER SPLICER Depakote 750mg BID - C/w Onfi 15 mg daily - Sleep protocol - Per neurosurgery: No lifting over 10 pounds x 1 week No tubs, macias, pools x 2 weeks Will follow up in clinic in 2-3 weeks Urinary retention - Meza placed 09/07. Later removed on 09/08 - Start 3 day course of CTX for UTI. Scheduled to end on 09/14/23 Chronic conditions: COPD - VENEER SPLICER Breo, VENEER SPLICER Incruse, baseline 2L O2 DLD - VENEER SPLICER Lipitor Chronic pain - VENEER SPLICER Tramadol q8h PRN. Turn and position Q4H Iron deficiency anemia - VENEER SPLICER ferrous sulfate + VENEER SPLICER colace CHAPO/depression - VENEER SPLICER Cymbalta Misc - VENEER SPLICER multivitamin and VENEER SPLICER calcium + vitamin D Other: DVT ppx: Lovenox 40mg daily Diet: Regular Bowel: Last BM 09/08 Rehab Therapy Plans: O.T. and P.T. Code Status: Full Code Associated attestation - Skyler Alcantar MD - 09/12/2023 12:34 PM EDT I saw and evaluated the patient today. I have reviewed the trainee note and agree. * Michelle Meadows DO - 09/11/2023 4:28 PM EDT PROGRESS NOTE - Neurology [facility] [place] [address] Name: Kathy Godinez Location: [facility] A479/A Date: 09/11/2023 Time: 4:32 PM SUBJECTIVE: Kathy Godinez is a 78 year old patient initially seen by Neurology for breakthrough seizure in the setting of a known AVM. Changes since last visit: No acute overnight events. Patient is still interested in going to rehab.Discussed with patient and her during rounds. Aside from chronic LBP from inactivity, she does not have any additional complaints. Pertinent past medical history: Past Medical History: Diagnosis Date 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 COPD (chronic obstructive pulmonary disease) ([facility] [place]) Quit smoking 2010 History of alcohol abuse Seizure-like activity (HCC) 09/08/2023 Pertinent past social history: Social History Tobacco Use Smoking status: Former Current packs/day: 0.00 Average packs/day: 1 pack/day for 46.0 years (46.0 ttl pk-yrs) Types: Cigarettes Start date: 10/26/1964 Quit date: 10/26/2010 Years since quittin.8 Passive exposure: Past Smokeless tobacco: Never Vaping Use Vaping Use: Never used Substance Use Topics Alcohol use: No Comment: Pt had previous history of alcohol abuse- she has not had a drink in 22 years Drug use: No OBJECTIVE: Physical Examination Most Recent Vital Signs: BP: 149 mmHg/74 mmHg (09/11/23 1423) Pulse: 93 (09/11/23 1423) Temp: 36.72 C (09/11/23 1423) Temp Summary: Temp Min: 36.1 C (97 F) Max: 36.8 C (98.2 F) SpO2: 97 % (04/08/24 1423) O2 flow rate: 2 L/MIN (09/11/231422) Supplemental O2 Delivery: Nasal Cannula (09/11/231422) Weight: 93.9 kg (207 lb 0.2 oz) (09/08/23112) Height: 157.5 cm (5' 2") (09/08/23112) Body mass index is 37.86 kg/m. Vital Signs Last 24 Hours: Systolic BP: Most Recent Systolic BP Av mmHg Min: 116 mmHg Max: 164 mmHg Temperature: Most Recent Temperature Av.5 C Min: 36.11 C Max: 36.78 C Pulse: Pulse Av.3 Min: 63 Max: 93 Respirations: Resp Av.7 Min: 16 Max: 18 SpO2: SpO2 Av % Min: 96 % Max: 100 % General Examination: Constitutional: appearance normally developed, no deformities, and well groomed Head and Face: normocephalic and atraumatic Eyes: normal lids, normal schlera, and normal conjunctiva Respiratory: normal effort Skin: no rashes, lesions, or ulcers noted Psychiatric: normal judgement and insight, normal mood, and normal affect Neurologic Examination: Appearance: no acute distress Orientation: awake, alert and oriented x 3 Mental Status: alert Knowledge: appropriate Language: no aphasia Speech: no dysarthria Cranial Nerves: CN 2 - no visual defect on confrontation and pupils round, equal, reactive to light CN 3, 4, 6 - extra-ocular movements intact and no nystagmus CN 5 - facial sensation intact CN 7 - no facial asymmetry CN 8 - intact hearing CN 9, 10 - palate symmetric CN 11 - good shoulder shrug CN 12 - tongue midline Gait: Deferred Coordination: no ataxia with finger to nose testing Sensory: intact and symmetric to light touch Muscle Tone: normal Muscle Exam: 5/5 throughout. RLE unable to lift from bed (chronic finding) LABS: Labs reviewed as indicated below: Recent Results (from the past 12 hour(s)) BASIC METABOLIC PANEL Collection Time: 09/11/23 5:51 AM Result Value Ref Range BUN 19 6 - 20 mg/dL Creatinine 0.7 0.5 - 1.0 mg/dL Estimated Glomerular Filtration Rate 86 >=60 mL/min Sodium 140 135 - 146 mmol/L Potassium 4.3 3.5 - 5.1 mmol/L Chloride 103 98 - 107 mmol/L CO2 28 22 - 32 mmol/L Anion Gap 9 7 - 15 mmol/L Glucose 86 70 - 120 mg/dL Calcium 9.4 8.4 - 10.2 mg/dL CBC Collection Time: 09/11/23 5:51 AM Result Value Ref Range WBC 5.54 4.00 - 10.80 K/uL RBC 3.34 3.85 - 5.15 M/uL HGB 11.4 (L) 12.0 - 15.3 g/dL HCT 35.1 (L) 36.0 - 45.2 % MCV 105.1 81.5 - 97.5 fL MCH 34.1 27.0 - 34.0 pg MCHC 32.5 32.0 - 36.0 g/dL RDW 12.7 11.5 - 15.5 % PLT 194 140 - 400 K/uL MPV 9.1 6.6 - 11.1 fL nRBCs 0 <=0 /100 WBCs Review of prior Diagnostic Tests, Imaging, and Labs: DSA 09/09/23: MPRESSION: S/P angiogram: 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 Residual main feeding arterial pedicle of A3 segment of the left HALLE to the AVM. This is measuring 4.8 mm (height) x 3 mm (width) x 3.4 mm (neck). CTH 09/07/23 - without evidence of acute hemorrhage or stroke, noted calcific changes to AVM in L parietal lobe along the falx cerebri CTA 09/07/23 - no LVO noted LTM EEG Study Start Date/Time: 09/08/2023404 Study End Date/Time: 09/09/2023, 399 Summary of Findings: Abnormal: This EEG is abnormal due to the presence of: Approximately 1-3 Left parietal electrographic seizures per hour, last at 0350 on 09/09/2023 Frequent left temporal slowing, indicative of focal dysfunction in this region Mild generalized slowing, indicative of nonspecific global dysfunction IMPRESSION: Patient is a pleasant 78yo F with PMHx of AVM s/p radiation w/residual RLE weakness and focal epilepsy that presented as a transfer from [facility] for evaluation and management of breakthrough seizure. Patient reported having breakthrough events very infrequently. She has not missed any medications and h as not felt ill recently, however reported that she had a new headache over the last few days. CTH demonstrated calcific changes at the AVM site without hemorrhage or acute stroke, CTA negative for LVO. On evaluation patient was still having some aphasia however NIHSS much improved from previous 19 recorded at [facility]. She was taken for a DSA on 09/08 which appeared unchanged. On LTM EEG patient was noted to have many brief seizures, however has seemed to stop around 0547. Unfortunately verybrief seizures continued again around 14:59 and has continued every few hours without clinical correlate. Unsure if this is her seizure baseline. LTM was left on for one more night and fortunately sei zures have finally stopped. Suspect Onfi needed time to work. RECOMMENDATIONS / PLAN: LRE in the setting of an AVM - Will place referral to epilepsy surgery at CT - S/p Keppra 2g at [facility] on 09/06 - Increased VENEER SPLICER Keppra from 1500 mg qAM and 1250mg qHS to 1500 mg BID (max dose for CrCl) - C/w VENEER SPLICER Depakote 750mg BID; awaiting level - C/w Onfi 15 mg daily - Sleep protocol - Per neurosurgery: No lifting over 10 pounds x 1 week No tubs, macias, pools x 2 weeks Will follow up in clinic in 2-3 weeks Urinary retention UTI without any abdominal discomfort - Meza placed 09/07. Later removed on 09/08 - UA with reflex to culture showing mild UTI - Will hold off on treatment unless pt becomes symptomatic Chronic conditions: COPD - VENE[employer] SPLICER Breo, VENEER SPLICER Incruse, baseline 2L O2 DLD - VENE[employer] SPLICER Lipitor Chronic pain - VENEER SPLICER Tramadol q8h PRN. Turn and position Q4H Iron deficiency anemia - VENEER SPLICER ferrous sulfate + VENEER SPLICER colace CHAPO/depression - VENEER SPLICER Cymbalta Misc - VENEER SPLICER multivitamin and VENEER SPLICER calcium + vitamin D Other: DVT ppx: Lovenox 40mg daily Diet: Regular Bowel: Last BM 09/08 Rehab Therapy Plans: O.T. and P.T. Code Status: Full Code Associated attestation - Skyler Alcantar MD - 09/11/2023 6:32 PM EDT I saw and evaluated the patient today. I have reviewed the trainee note and agree. * Michelle Meadows DO - 09/10/2023 7:30 AM EDT PROGRESS NOTE - Neurology [facility] [place] [address] Name: Kathy Godienz Location: [facility] A479/A Date: 09/10/2023 Time: 11:18 AM SUBJECTIVE: Kathy Godinez is a 78 year old patient initially seen by Neurology for breakthrough seizure in the setting of a known AVM. Changes since last visit: Patient was noted to have some dried blood in her groin around the site of the DSA. No active bleeding currently. Patient does complain of some abdominal pain and back pain. Pertinent past medical history: Past Medical History: Diagnosis Date COPD (chronic obstructive pulmonary disease) ([facility]) Quit smoking 2010 History of alcohol abuse Pertinent past social history: Social History Tobacco Use Smoking status: Former Current packs/day: 0.00 Average packs/day: 1 pack/day for 46.0 years (46.0 ttl pk-yrs) Types: Cigarettes Start date: 10/26/1964 Quit date: 10/26/2010 Years since quittin.8 Passive exposure: Past Smokeless tobacco: Never Vaping Use Vaping Use: Never used Substance Use Topics Alcohol use: No Comment: Pt had previous history of alcohol abuse- she has not had a drink in 22 years Drug use: No OBJECTIVE: Physical Examination Most Recent Vital Signs: BP: 115 mmHg/62 mmHg (09/10/231099) Pulse: 72 (09/10/231099) Temp: 36.61 C (09/10/231099) Temp Summary: Temp Min: 36.1 C (97 F) Max: 36.9 C (98.4 F) SpO2: 97 % (09/10/231099) O2 flow rate: 2 L/MIN (09/10/231099) Supplemental O2 Delivery: Nasal Cannula (09/10/231099) Weight: 93.9 kg (207 lb 0.2 oz) (09/08/23112) Height: 157.5 cm (5' 2") (04/05/24 0113) Body mass index is 37.86 kg/m. Vital Signs Last 24 Hours: Systolic BP: Most Recent Systolic BP Av.5 mmHg Min: 115 mmHg Max: 130 mmHg Temperature: Most Recent Temperature Av.5 C Min: 36.11 C Max: 36.89 C Pulse: Pulse Av.8 Min: 69 Max: 96 Respirations: Resp Av.3 Min: 16 Max: 18 SpO2: SpO2 Av % Min: 97 % Max: 100 % General Examination: Constitutional: appearance normally developed, no deformities, and well groomed Head and Face: normocephalic and atraumatic Eyes: normal lids, normal schlera, and normal conjunctiva Respiratory: normal effort Skin: no rashes, lesions, or ulcers noted Psychiatric: normal judgement and insight, normal mood, and normal affect Neurologic Examination: Appearance: no acute distress Orientation: awake, alert and oriented x 3 Mental Status: alert Knowledge: appropriate Language: no aphasia Speech: no dysarthria Cranial Nerves: CN 2 - no visual defect on confrontation and pupils round, equal, reactive to light CN 3, 4, 6 - extra-ocular movements intact and no nystagmus CN 5 - facial sensation intact CN 7 - no facial asymmetry CN 8 - intact hearing CN 9, 10 - palate symmetric CN 11 - good shoulder shrug CN 12 - tongue midline Gait: Deferred Coordination: no ataxia with finger to nose testing Sensory: intact and symmetric to light touch Muscle Tone: normal Muscle Exam: 5/5 throughout. RLE unable to lift from bed (chronic finding) LABS: Labs reviewed as indicated below: Recent Results (from the past 12 hour(s)) URINALYSIS, REFLEX TO CULTURE (CUP ONLY) Collection Time: 09/10/23 4:58 AM Result Value Ref Range Urinalysis, Reflex to Culture Specimen Specimen collected and received URINALYSIS, REFLEX TO CULTURE Collection Time: 09/10/23 4:58 AM Result Value Ref Range Color, Urine Yellow Colorless, Light Yellow, Yellow, Dark Yellow Clarity, Urine Slightly Cloudy (A) Clear Glucose, Urine Negative Negative mg/dL Bilirubin, Urine Negative Negative Ketone, Urine 15 (A) Negative mg/dL Specific [place], Urine >1.050 (H) 1.003 - 1.030 Blood, Urine Moderate (A) Negative pH, Urine 6.0 5.0 - 7.5 Units Protein, Urine 30 (A) Negative mg/dL Urobilinogen, Urine Normal Normal mg/dL Nitrite, Urine Negative Negative Esterase, Urine Large (A) Negative RBC, Urine 20-29 (A) 0 - 2 /HPF WBC, Urine 50+ (A) 0 - 2 /HPF Bacteria, Urine 26-50 (A) 0 - 25 /HPF Squamous Epithelial Cells, Urine Many (A) None /HPF Culture, Urine CBC Collection Time: 09/10/23 8:07 AM Result Value Ref Range WBC 7.23 4.00 - 10.80 K/uL RBC 3.46 3.85 - 5.15 M/uL HGB 11.7 (L) 12.0 - 15.3 g/dL HCT 36.4 36.0 - 45.2 % MCV 105.2 81.5 - 97.5 fL MCH 33.8 27.0 - 34.0 pg MCHC 32.1 32.0 - 36.0 g/dL RDW 13.1 11.5 - 15.5 % PLT 186 140 - 400 K/uL MPV 8.9 6.6 - 11.1 fL nRBCs 0 <=0 /100 WBCs BASIC METABOLIC PANEL Collection Time: 09/10/23 8:08 AM Result Value Ref Range BUN 23 (H) 6 - 20 mg/dL Creatinine 0.8 0.5 - 1.0 mg/dL Estimated Glomerular Filtration Rate 77 >=60 mL/min Sodium 142 135 - 146 mmol/L Potassium 4.9 3.5 - 5.1 mmol/L Chloride 105 98 - 107 mmol/L CO2 30 22 - 32 mmol/L Anion Gap 7 7 - 15 mmol/L Glucose 95 70 - 120 mg/dL Calcium 9.2 8.4 - 10.2 mg/dL Review of prior Diagnostic Tests, Imaging, and Labs: DSA 09/09/23: MPRESSION: S/P angiogram: 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 Residual main feeding arterial pedicle of A3 segment of the left HALLE to the AVM. This is measuring 4.8 mm (height) x 3 mm (width) x 3.4 mm (neck). CTH 09/07/23 - without evidence of acute hemorrhage or stroke, noted calcific changes to AVM in L parietal lobe along the falx cerebri CTA 09/07/23 - no LVO noted LTM EEG Study Start Date/Time: 09/08/2023, 404 Study End Date/Time: 09/09/2023, 399 Summary of Findings: Abnormal: This EEG is abnormal due to the presence of: Approximately 1-3 Left parietal electrographic seizures per hour, last at 0350 on 09/09/2023 Frequent left temporal slowing, indicative of focal dysfunction in this region Mild generalized slowing, indicative of nonspecific global dysfunction IMPRESSION: Patient is a pleasant 78yo F with PMHx of AVM s/p radiation w/residual RLE weakness and focal epilepsy that presented as a transfer from [facility] for evaluation and management of breakthrough seizure. Patient reported having breakthrough events very infrequently. She has not missed any medications and h as not felt ill recently, however reported that she had a new headache over the last few days. CTH demonstrated calcific changes at the AVM site without hemorrhage or acute stroke, CTA negative for LVO. On evaluation patient was still having some aphasia however NIHSS much improved from previous 19 recorded at [facility]. She was taken for a DSA on 09/08 which appeared unchanged. On LTM EEG patient was noted to have many brief seizures, however has seemed to stop around 0547. Unfortunately verybrief seizures continued again around 14:59 and has continued every few hours without clinical correlate. Unsure if this is her seizure baseline. During this admission her ASMs have been increased and a 3rd agent has been added (see plan below for details). RECOMMENDATIONS / PLAN: LRE in the setting of an AVM - Will DC LTM EEG today - Will place referral to epilepsy surgery at [place] - S/p Keppra 2g at [facility] on 09/06 - Increased VENEER SPLICER Keppra from 1500 mg qAM and 1250mg qHS to 1500 mg BID (max dose for CrCl) - C/w VENEER SPLICER Depakote 750mg BID; awaiting level - C/w Onfi 15 mg daily - Per neurosurgery: Can remove dressing today No lifting over 10 pounds x 1 week No tubs, macias, pools x 2 weeks Will follow up in clinic in 2-3 weeks Urinary retention UTI without any abdominal discomfort - Meza placed 09/07. Later removed on 09/08 - UA with reflex to culture showing mild UTI - Will hold off on treatment unless she becomes symptomatic Chronic conditions: COPD - VENEER SPLICER Breo, VENEER SPLICER Incruse, baseline 2L O2 DLD - VENEER SPLICER Lipitor Chronic pain - VENEER SPLICER Tramadol q8h PRN Iron deficiency anemia - VENEER SPLICER ferrous sulfate + VENEER SPLICER colace CHAPO/depression - VENEER SPLICER Cymbalta Misc - VENEER SPLICER multivitamin and VENEER SPLICER calcium + vitamin D Other: DVT ppx: Lovenox 40mg daily Diet: Regular Bowel: Last BM 09/08 Rehab Therapy Plans: O.T. and P.T. Code Status: Full Code Associated attestation - Tao Sandy MD - 09/10/2023 4:39 PM EDT I saw and evaluated the patient today. I have reviewed the trainee note and agree. * Radha Davey PA-C - 09/10/2023 7:12 AM EDT NEUROLOGICAL SURGERY PROGRESS NOTE [facility] [place] [address] Name: Kathy Godinez Location: [facility] A479/A Date: 09/10/2023 Time: 7:12 AM SUBJECTIVE: LTM with 9 electrographic seizures in left parietal region, last at 0304 on 09/09 per LTM read. No issues with groin. OBJECTIVE: Most recent vital signs: BP: 130 mmHg/66 mmHg (09/10/23625) Pulse: 69 (09/10/23 0226) Temp: 36.22 C (09/10/23625) Temp Summary: Temp Min: 36 C (96.8 F) Max: 36.9 C (98.4 F) SpO2: 100 % (09/10/23625) O2 flow rate: 2 L/MIN (09/10/23625) Supplemental O2 Delivery: Nasal Cannula (09/10/23625) Vital signs over last 24 hours: Systolic BP: Most Recent Systolic BP Av.5 mmHg Min: 107 mmHg Max: 157 mmHg Temperature: Most Recent Temperature Av.3 C Min: 36 C Max: 36.89 C Pulse: Pulse Avg: Pulse Av.7 Min: 69 Max: 96 Respirations: Resp Av.2 Min: 14 Max: 20 SpO2: SpO2 Av.7 % Min: 95 % Max: 100 % SpO2: SpO2 Av.7 % Min: 95 % Max: 100 % FiO2%: No data recorded ICP: No data found.CPP (adult): No data found.Intake Input/Output: (last 24 hours) Intake/Output Summary (Last 24 hours) at 09/10/2023 0712 Last data filed at 09/10/2023 0459 Gross per 24 hour Intake 450 ml Output 565 ml Net -115 ml Cardiovascular: RRR Respiratory: normal effort Neurologic Examination Awake, alert, oriented to person, place, time PERRL EOMI No facial droop No pronator drift CROCKETT to command RUE 2/5 (baseline) LUE 5/5 RLE 5/5 LLE 5/5 Sensation grossly intact LABS: Blood count: Lab Results Component Value Date/Time WBC 7.47 09/09/2023 06:20 AM WBC 7.26 12/10/2019 11:53 AM HGB 13.0 09/09/2023 06:20 AM HGB 12.0 12/10/2019 11:53 AM HCT 39.4 09/09/2023 06:20 AM HCT 38.9 12/10/2019 11:53 AM PLT 181 09/09/2023 06:20 AM PLT 215 12/10/2019 11:53 AM Coagulation studies: Lab Results Component Value Date/Time INR 1.9 08/01/2019 12:00 AM INR 2.3 01/28/2019 11:21 AM INR 3.49 (H) 12/31/2018 10:56 AM Chemistry: Lab Results Component Value Date/Time BUN 23 (H) 09/09/2023 06:20 AM BUN 29 (H) 06/25/2020 11:43 AM CREAT 0.7 09/09/2023 06:20 AM CREAT 0.7 06/25/2020 11:43 AM GFRESTIMATED >60.0 06/25/2020 11:43 AM NA 141 09/09/2023 06:20 AM NA 140 06/25/2020 11:43 AM POTASSIUM 4.5 09/09/2023 06:20 AM POTASSIUM 4.6 06/25/2020 11:43 AM CO2 28 09/09/2023 06:20 AM CO2 24 06/25/2020 11:43 AM Imaging studies: No new images Problem list: Active Problems: Seizure-like activity (HCC) Resolved Problems: * No resolved hospital problems. 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 Pt was lost to follow up in 2020 and neurosurgery was consulted to re-establish follow up. Will plan to do a DSA for pt given how long it has been since her last follow up. Pt and adamant they will not pursue further radiation therapy if that is the recommended treatment for the AVM should she need further therapy. Routine neurochecks Will order 3 month follow up with Dr. Meeks Please ensure right groin dressing is removed Remainder of care per primary Neurosurgery will sign off, please reach out with further questions Will discuss with Dr. Meeks I saw and evaluated the patient today. I have reviewed the trainee note and agree. Addendum: Will f/u in 3 weeks Groin intact, dressing removed * Michelle Meadows DO - 09/09/2023 2:59 PM EDT PROGRESS NOTE - Neurology [facility] [place]-[address] [id number] Name: Kathy Godinez Location: [facility] A479/A Date: 09/09/2023 Time: 3:59 PM SUBJECTIVE: Kathy Godinez is a 78 year old patient initially seen by Neurology for breakthrough seizure in the setting of a known AVM. Changes since last visit: Patient has not had any further seizures since 05:47. She is doing well after the DSA, however is still complaining of pain from lying flat. Pertinent past medical history: Past Medical History: Diagnosis Date COPD (chronic obstructive pulmonary disease) (HCC) Quit smoking 2010 History of alcohol abuse Pertinent past social history: Social History Tobacco Use Smoking status: Former Current packs/day: 0.00 Average packs/day: 1 pack/day for 46.0 years (46.0 ttl pk-yrs) Types: Cigarettes Start date: 10/26/1964 Quit date: 10/26/2010 Years since quittin.8 Passive exposure: Past Smokeless tobacco: Never Vaping Use Vaping Use: Never used Substance Use Topics Alcohol use: No Comment: Pt had previous history of alcohol abuse- she has not had a drink in 22 years Drug use: No OBJECTIVE: Physical Examination Most Recent Vital Signs: BP: 117 mmHg/68 mmHg (09/09/23 1400) Pulse: 95 (09/09/23 1400) Temp: 36.78 C (09/09/23 1400) Temp Summary: Temp Min: 36 C (96.8 F) Max: 36.9 C (98.4 F) SpO2: 100 % (09/09/23 1400) O2 flow rate: 2 L/MIN (09/09/23 1200) Supplemental O2 Delivery: Nasal Cannula (09/09/231399) Weight: 93.9 kg (207 lb 0.2 oz) (09/08/23112) Height: 157.5 cm (5' 2") (09/08/23112) Body mass index is 37.86 kg/m. Vital Signs Last 24 Hours: Systolic BP: Most Recent Systolic BP Av.6 mmHg Min: 107 mmHg Max: 157 mmHg Temperature: Most Recent Temperature Av.4 C Min: 36 C Max: 36.89 C Pulse: Pulse Av.4 Min: 68 Max: 95 Respirations: Resp Av.2 Min: 14 Max: 20 SpO2: SpO2 Av.4 % Min: 95 % Max: 100 % General Examination: Constitutional: appearance normally developed, no deformities, and well groomed Head and Face: normocephalic and atraumatic Eyes: normal lids, normal schlera, and normal conjunctiva Respiratory: normal effort Skin: no rashes, lesions, or ulcers noted Psychiatric: normal judgement and insight, normal mood, and normal affect Neurologic Examination: Appearance: no acute distress Orientation: awake, alert and oriented x 3 Mental Status: alert Knowledge: appropriate Language: no aphasia Speech: no dysarthria Cranial Nerves: CN 2 - no visual defect on confrontation and pupils round, equal, reactive to light CN 3, 4, 6 - extra-ocular movements intact and no nystagmus CN 5 - facial sensation intact CN 7 - no facial asymmetry CN 8 - intact hearing CN 9, 10 - palate symmetric CN 11 - good shoulder shrug CN 12 - tongue midline Gait: Deferred Coordination: no ataxia with finger to nose testing Sensory: intact and symmetric to light touch Muscle Tone: normal Muscle Exam: 5/5 throughout. Did not assess RLE given recent DSA (chronically weak on the RLE) LABS: Labs reviewed as indicated below: Recent Results (from the past 12 hour(s)) BASIC METABOLIC PANEL Collection Time: 09/09/23 6:20 AM Result Value Ref Range BUN 23 (H) 6 - 20 mg/dL Creatinine 0.7 0.5 - 1.0 mg/dL Estimated Glomerular Filtration Rate 85 >=60 mL/min Sodium 141 135 - 146 mmol/L Potassium 4.5 3.5 - 5.1 mmol/L Chloride 102 98 - 107 mmol/L CO2 28 22 - 32 mmol/L Anion Gap 11 7 - 15 mmol/L Glucose 101 70 - 120 mg/dL Calcium 9.9 8.4 - 10.2 mg/dL CBC Collection Time: 09/09/23 6:20 AM Result Value Ref Range WBC 7.47 4.00 - 10.80 K/uL RBC 3.83 3.85 - 5.15 M/uL HGB 13.0 12.0 - 15.3 g/dL HCT 39.4 36.0 - 45.2 % MCV 102.9 81.5 - 97.5 fL MCH 33.9 27.0 - 34.0 pg MCHC 33.0 32.0 - 36.0 g/dL RDW 13.0 11.5 - 15.5 % PLT 181 140 - 400 K/uL MPV 8.9 6.6 - 11.1 fL nRBCs 0 <=0 /100 WBCs Review of prior Diagnostic Tests, Imaging, and Labs: DSA 09/09/23: MPRESSION: S/P angiogram: 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 Residual main feeding arterial pedicle of A3 segment of the left HALLE to the AVM. This is measuring 4.8 mm (height) x 3 mm (width) x 3.4 mm (neck). CTH 09/07/23 - without evidence of acute hemorrhage or stroke, noted calcific changes to AVM in L parietal lobe along the falx cerebri CTA 09/07/23 - no LVO noted LTM EEG Study Start Date/Time: 09/08/2023, 404 Study End Date/Time: 09/09/2023, 399 Summary of Findings: Abnormal: This EEG is abnormal due to the presence of: Approximately 1-3 Left parietal electrographic seizures per hour, last at 0350 on 09/09/2023 Frequent left temporal slowing, indicative of focal dysfunction in this region Mild generalized slowing, indicative of nonspecific global dysfunction IMPRESSION: Patient is a pleasant 78yo F with PMHx of AVM s/p radiation w/residual RLE weakness and focal epilepsy that presented as a transfer from [facility] for evaluation and management of breakthrough seizure. Patient reported having breakthrough events very infrequently. She has not missed any medications and h as not felt ill recently, however reported that she had a new headache over the last few days. CTH demonstrated calcific changes at the AVM site without hemorrhage or acute stroke, CTA negative for LVO. On evaluation patient was still having some aphasia however NIHSS much improved from previous 19 recorded at [facility]. She was taken for a DSA on 09/08 for complete obliteration of the known left parietal arteriovenous malformation. On LTM EEG patient was noted to have many brief seizures, however has now been seizure-free since 546. Will continue to monitor on LTM EEG overnight. RECOMMENDATIONS / PLAN: Breakthrough seizure Hx of AVM s/p radiation and obliteration (09/09/23) - LTM EEG overnight then DC - S/p Keppra 2g at [facility] on 09/06 - Increased VENEER SPLICER Keppra from 1500 mg qAM and 1250mg qHS to 1500 mg BID - C/w VENEER SPLICER Depakote 750mg BID - Added Onfi 15 mg daily - Per neurosurgery: IV pain medication for several doses R groin flat x 4 hours, can prop up leg Can remove dressing tomorrow No lifting over 10 pounds x 1 week No tubs, macias, pools x 2 weeks Will follow up in clinic in 2-3 weeks Urinary retention - Meza placed 09/07. Will remove in AM - UA with reflex to culture pending - NGTD DVT ppx - Lovenox 40mg daily Chronic conditions: COPD - VENEER SPLICER Breo, VENEER SPLICER Incruse, baseline 2L O2 DLD - VENEER SPLICER Lipitor Chronic pain - VENEER SPLICER Tramadol q8h PRN Iron deficiency anemia - VENEER SPLICER ferrous sulfate + VENEER SPLICER colace CHAPO/depression - VENEER SPLICER Cymbalta Misc - VENEER SPLICER multivitamin and VENEER SPLICER calcium + vitamin D Rehab Therapy Plans: O.T. and P.T. Code Status: Full Code Associated attestation - Tao Sandy MD - 09/09/2023 6:01 PM EDT I saw and evaluated the patient today. I have reviewed the trainee note and agree. * Nito Meeks MD - 09/09/2023 6:47 AM EDT NEUROLOGICAL SURGERY PROGRESS NOTE [facility] [place] [address] Name: Kathy Godinez Location: OR [facility]/[place] Date: 09/09/2023 Time: 6:48 AM SUBJECTIVE: LTM with 1-3 electrographic seizures last around 350am this morning per LTM read OBJECTIVE: Most recent vital signs: BP: 142 mmHg/67 mmHg (09/09/23609) Pulse: 84 (09/09/23609) Temp: 36.61 C (09/09/23609) Temp Summary: Temp Min: 36.1 C (97 F) Max: 36.9 C (98.4 F) SpO2: 98 % (09/09/23609) O2 flow rate: 2 L/MIN (09/09/23609) Supplemental O2 Delivery: Nasal Cannula (09/09/23609) Vital signs over last 24 hours: Systolic BP: Most Recent Systolic BP Av.5 mmHg Min: 117 mmHg Max: 145 mmHg Temperature: Most Recent Temperature Av.6 C Min: 36.11 C Max: 36.89 C Pulse: Pulse Avg: Pulse Av.3 Min: 68 Max: 85 Respirations: Resp Av.3 Min: 16 Max: 18 SpO2: SpO2 Av.2 % Min: 97 % Max: 99 % SpO2: SpO2 Av.2 % Min: 97 % Max: 99 % FiO2%: No data recorded ICP: No data found.CPP (adult): No data found.Intake Input/Output: (last 24 hours) Intake/Output Summary (Last 24 hours) at 09/09/2023 0648 Last data filed at 09/09/2023 0603 Gross per 24 hour Intake 350 ml Output 200 ml Net 150 ml Cardiovascular: RRR Respiratory: normal effort Neurologic Examination Awake, alert, oriented to person, place, time PERRL EOMI No facial droop No pronator drift CROCKETT to command RUE 2/5 (baseline) LUE 5/5 RLE 5/5 LLE 5/5 Sensation grossly intact LABS: Blood count: Lab Results Component Value Date/Time WBC 7.47 09/09/2023 06:20 AM WBC 7.26 12/10/2019 11:53 AM HGB 13.0 09/09/2023 06:20 AM HGB 12.0 12/10/2019 11:53 AM HCT 39.4 09/09/2023 06:20 AM HCT 38.9 12/10/2019 11:53 AM PLT 181 09/09/2023 06:20 AM PLT 215 12/10/2019 11:53 AM Coagulation studies: Lab Results Component Value Date/Time INR 1.9 08/01/2019 12:00 AM INR 2.3 01/28/2019 11:21 AM INR 3.49 (H) 12/31/2018 10:56 AM Chemistry: Lab Results Component Value Date/Time BUN 19 09/08/2023 02:06 AM BUN 29 (H) 06/25/2020 11:43 AM CREAT 0.6 09/08/2023 02:06 AM CREAT 0.7 06/25/2020 11:43 AM GFRESTIMATED >60.0 06/25/2020 11:43 AM NA 141 09/08/2023 02:06 AM NA 140 06/25/2020 11:43 AM POTASSIUM 4.2 09/08/2023 02:06 AM POTASSIUM 4.6 06/25/2020 11:43 AM CO2 25 09/08/2023 02:06 AM CO2 24 06/25/2020 11:43 AM Imaging studies: No new images Problem list: Active Problems: Seizure-like activity (HCC) Resolved Problems: * No resolved hospital problems. 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 Pt was lost to follow up in 2020 and neurosurgery was consulted to re-establish follow up. Will plan to do a DSA for pt given how long it has been since her last follow up. Pt and adamant they will not pursue further radiation therapy if that is the recommended treatment for the AVM should she need further therapy. Routine neurochecks DSA this morning Maintain NPO Pt booked and consented for OR Remainder of care per primary Discussed with Dr. Meeks. I saw and evaluated the patient today. I have reviewed the trainee note and agree. 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 Given a dose of ativan at home by , then prior to next dose of ativan started staring off into space. At [facility] noted to have aphasia and was stroke alerted. NIHSS 19 for questions, commands, gaze palsy, RUE, RLE, LLE, ataxia, sensory, aphasia, and dysarthria. Per recommendations from [place] telestroke following normal CTA, loaded with Keppra at 1100hrs on 09/06 and transferred for LTM EEG. Per [facility] paper chart, patient's mentioned she had a left-sided headache for the last 4 dayswhich is abnormal for her. Patient is wheelchair bound at baseline. Cannot move RLE antigravity perhusband which is a chronic finding. Patient did not miss any medications and has had no recent illnesses. Per outpatient note with neurology on 11/08/22 patient has 2 seizure semiologies. One is a GTC with head turned to the right causing post-ictal right sided weakness, aphasia, and dysarthria. The other type is right foot tapping that can progress up the right leg, easily aborted with ativan. PAST MEDICAL HISTORY: Past Medical History: Diagnosis Date COPD (chronic obstructive pulmonary disease) (HCC) Quit smoking 2010 History of alcohol abuse PAST SURGICAL HISTORY: Past Surgical History: Procedure Laterality Date ANESTH, LOWER ARM BONE SURGERY Arm reconstruction in 80's CAROTID (INTERNAL) ARTERY CATHETHER PLACEMENT Bilateral 02/26/2018 CATHETER PLACEMENT INTERNAL CAROTID ARTERY performed by Cristofer Thayer MD at [facility] CATARACT SURGERY,COMPLEX Bilateral 2016 DELIVERY COLONOSCOPY, DIAGNOSTIC (RECTUM) 02/27/2019 diverticulosis,colon/[facility] CORONARY ANGIOGRAPHY W/LEFT HEART CATH Right 04/11/2018 CORONARY ANGIOGRAPHY W/LEFT HEART CATH performed by Fer Barriga DO at CARDIAC LABS [facility] EGD, FLEXIBLE, DIAGNOSTIC 02/26/2019 mild gastritis, EGD/[facility] INFORMATION Ovarian cysts removed in 20s REMOVAL OF APPENDIX VERTEBRAL ARTERY CATHETER PLACEMENT Bilateral 02/26/2018 CATHETER PLACEMENT VERTEBRAL ARTERY, performed by Cristofer Thayer MD at OR [facility] FAMILY HISTORY: Family History Problem Relation Age of Onset Neurological Disorder Mother CVA in 80s Heart Disorder Mother MD Dementia Mother Depression Mother Cancer Sister Lung- passed, smoker Other (Suicide) Brother age 25 Other (Depression) Sister SOCIAL HISTORY: Social History Tobacco Use Smoking status: Former Current packs/day: 0.00 Average packs/day: 1 pack/day for 46.0 years (46.0 ttl pk-yrs) Types: Cigarettes Start date: 10/26/1964 Quit date: 10/26/2010 Years since quittin.8 Passive exposure: Past Smokeless tobacco: Never Vaping Use Vaping Use: Never used Substance Use Topics Alcohol use: No Comment: Pt had previous history of alcohol abuse- she has not had a drink in 22 years Drug use: No ALLERGIES: Ciprofloxacin, Vimpat [lacosamide], Morphine, Other allergy (see comments), and Sulfa antibiotics CURRENT MEDICATIONS: Note that completed medications (per the MAR) continue to display for 24 hours. Ordered medicationsto be given in the future also display. Current Facility-Administered Medications Medication Dose Route Frequency Provider atorvaSTATin (Lipitor) tab 20 mg 20 mg Oral Daily(AM) Jorge Luis Oneil DO Calcium Carbonate 500 mg + Vitamin D 5 mcg (200 units) per tab 1 Tablet Oral With meals Jorge Luis Oneil DO divalproex ER (Depakote ER) extended release tab 750 mg 750 mg Oral BID(AM/PM) Jorge Luis Oneil DO Docusate Sodium (Colace) cap 100 mg 100 mg Oral BID(AM/PM) Jorge Luis Oneil DO DULoxetine (Cymbalta) DR cap 20 mg 20 mg Oral Daily(AM) Jorge Luis Oneil DO [START ON 09/09/2023] Enoxaparin (Lovenox) inj 40 mg 40 mg Subcutaneous Daily(AM) Jorge Luis Oneil DO Ferrous Sulfate (Feosol) tab 325 mg 325 mg Oral Daily Noon Jorge Luis Oneil DO fluticasone furoate-vilanterol (BREO ellipta) 200-25 MCG/ACT inhaler 1 Puff 1 Puff Inhalation Resp Daily Jorge Luis Oneil DO levETIRAcetam (Keppra) tab 1,250 mg 1,250 mg Oral QHS Jorge Luis Oneil DO levETIRAcetam (Keppra) tab 1,500 mg 1,500 mg Oral Daily(AM) Jorge Luis Oneil DO metoprolol succinate XL (toPROL XL) tab 25 mg 25 mg Oral Daily PRN Jorge Luis Oneil DO multivitamin (Mvi) 1 Tablet 1 Tablet Oral Daily Noon Jorge Luis Oneil DO sodium chloride 0.9 % flush/inj 3 mL 3 mL IV Push PRN Jorge Luis Oneil DO traMADol (Ultram) tab 50 mg 50 mg Oral Q8H PRN Jorge Luis Oneil DO umeclidinium [place] (INCRUSE ellipta) 62.5 MCG/ACT inhaler 1 Puff 1 Puff Inhalation Resp Daily Jorge Luis Oneil DO ROS: All negative other than as noted in HPI PHYSICAL EXAMINATION: Most Recent Vital Signs: BP: 154 mmHg/75 mmHg (09/08/23112) Pulse: 80 (09/08/23112) Temp: 36.89 C (09/08/23112) Temp Summary: Temp Min: 36.9 C (98.4 F) Max: 36.9 C (98.4 F) SpO2: 100 % (09/08/23112) O2 flow rate: Supplemental O2 Delivery: Weight: 93.9 kg (207 lb 0.2 oz) (09/08/23112) Height: 157.5 cm (5' 2") (09/08/23112) Body mass index is 37.86 kg/m. Vital Signs Last 24 Hours: Systolic BP: Most Recent Systolic BP Av mmHg Min: 154 mmHg Max: 154 mmHg Temperature: Most Recent Temperature Av.89 C Min: 36.89 C Max: 36.89 C Pulse: Pulse Av Min: 80 Max: 80 Respirations: Resp Av Min: 18 Max: 18 SpO2: SpO2 Av % Min: 100 % Max: 100 % General Examination: Constitutional: Appearance no deformities and in bed Head/face, ears, nose, throat: normocephalic and atraumatic, ears, nose and lips normal appearing, and oral mucosa nonerythematous Eyes: normal lids, normal sclerae, and normal conjunctivae Neck: supple, symmetric,thyroid normal Respiratory: normal effort on supplemental O2 Cardiovascular: regular rate Abdomen: non distended and soft Skin: no rashes, lesions or ulcers Psychiatric: normal mood, normal affect, and not agitated Neurologic Examination: Ophthalmoscopic: deferred due to inadequate dilation Mental Status and Orientation: oriented to person and place, through it was 2014 but knew it was September Memory: poor Attention: diminished Knowledge:normal Language: can repeat, can name, can follow most commands, consistent with an anomic aphasia; struggles with complex sentences and can occasionally not say words correctly Speech: no dysarthria Cranial Nerves: CN 2 - no visual defect on confrontation and pupils round, equal, reactive to light CN 3, 4, 6 - extra-ocular movements intact CN 5 - facial sensation intact V1-3 CN 7 - no facial asymmetry CN 8 - intact hearing CN 9, 10 - cough intact CN 11 - shoulder shrug full strength CN 12 - tongue protrudes midline Sensory: intact to light touch Coordination: intact with finger to nose testing Gait: deferred due to fall risk, wheelchair bound Muscle Tone: normal Muscle exam: see stroke scale Reflexes: Brachioradialis Biceps Patellar Odilia's Right 2+ 2+ 2+ not present Left 2+ 2+ 1+ not present Knee jerk on right is likely hyperreflexic in the setting of asymmetry with reduced left knee jerk RLE stimulus induced clonus [employer] [place] [facility] Stroke Scale: 1A. LOC: 0 1B. Question: 0 1C. Commands: 0 2. Gaze: 0 3. Visual Hernández: 0 4. Facial Palsy: 0 5A. Arm Left: 0 5B. Arm Right: 1 6A. Leg Left: 0 6B. Leg Right: 3 7. Ataxia: 0 8. Sensory: 0 9. Aphasia: 1 10. Dysarthria: 0 11. Extinction: 0 Total: 6 STUDIES: Labs: Lab results within last 7 days (see chart for full results) Units 09/08/23 0206 HGB g/dL 12.9 HCT % 39.0 WBC K/uL 7.80 PLT K/uL 189 Lab results within last 7 days (see chart for full results) Units 09/08/23 0206 Lactate mmol/L 0.9 Lab results within last 7 days (see chart for full results) Units 09/08/23 0206 Sodium mmol/L 141 Potassium mmol/L 4.2 Chloride mmol/L 105 CO2 mmol/L 25 BUN mg/dL 19 Creatinine mg/dL 0.6 Diagnostic Tests: EEG on 07/19/2018 Interpretation: This electroencephalogram is mildly abnormal due to: 1. Left temporoparietal focal slowing. No epileptiform activity is present. Imaging: CTH 09/07/23 - without evidence of acute hemorrhage or stroke, noted calcific changes to AVM in L parietal lobe along the falx cerebri CTA 09/07/23 - no LVO noted IMPRESSION: Patient is a pleasant 78yo F with PMHx of AVM s/p radiation w/ residual RLE weakness and focal epilepsy that presented as a transfer from [facility] for evaluation and management of breakthrough seizure. Patient reported having breakthrough events very infrequently. She has not missed any medications andhas not felt ill recently, however reported that she had a new headache over the last few days. CTH demonstrated calcific changes at the AVM site without hemorrhage or acute stroke, CTA negative for LVO. On evaluation patient still has some aphasia however NIHSS much improved from previous 19 recorded at [facility]. She presented with significant urinary retention requiring a meza, question ifa UTI or other infection may have triggered these breakthrough events vs changes to the AVM site. Plan to continue VENEER SPLICER ASDs as she is not having clinical seizures currently and will monitor with LTM EEG, rest of plan as seen below. RECOMMENDATIONS / PLAN: Breakthrough seizure Hx of AVM s/p radiation - LTM EEG - S/p Keppra 2g at [facility] on 09/06 - C/w VENEER SPLICER Keppra 1500mg qAM and 1250mg qHS - C/w VENEER SPLICER Depakote 750mg BID - Valproic acid free and total level pending - Levetiracetam level pending Urinary retention - Meza placed - UA with reflex to culture pending DVT ppx - Lovenox 40mg daily Chronic conditions: COPD - VENEER SPLICER Breo, VENEER SPLICER Incruse, baseline 2L O2 DLD - VENEER SPLICER Lipitor Chronic pain - VENEER SPLICER Tramadol q8h PRN Iron deficiency anemia - VENEER SPLICER ferrous sulfate + VENEER SPLICER colace CHAPO/depression - VENEER SPLICER Cymbalta Misc - VENEER SPLICER multivitamin and VENEER SPLICER calcium + vitamin D Based on the patient's current medical condition and the proposed treatment plan, I am anticipatingdischarge from the hospital not earlier than 09/09/23. The plans for post-hospital care will be determined by the patient's response to the inpatient services provided and will be detailed in the discharge instructions and hospital discharge summary. Code Status: Full Code The patient was examined and was discussed with Dr. Vaughn. Associated attestation - Ray Vaughn DO - 09/08/2023 6:48 AM EDT I saw and evaluated the patient today. I have reviewed the trainee note and agree. documented in this encounter Procedure Notes * Mindy Hoffmann DO - 09/11/2023 5:12 AM EDT Electroencephalogram Report [id number] [facility] [place] [address] FLO[address] [facility] [address] Name: Kathy Godinez Age: [age] year old Study Start Date/Time: 09/10/2023, 0 Study End Date/Time: 09/11/2023, 0834 Location: [facility] A4/A Referring Physician: Bhavna Oneil Clinical Summary: Kathy Godinez is a/an 78 year old female undergoing EEG evaluation for: seizures in the setting of L parietal AVM Neuroactive Medications: Keppra, Onfi, Depakote Technical Summary: This digitally acquired electroencephalogram was performed using 21 scalp electrodes in the international 10/20 system placement, with additional scalp, precordial, and other surface electrodes used for electrical referencing and artifact detection. Video monitoring was utilized and reviewed periodically by the physician for electroclinical correlation. Physician access to datawas available throughout the recording. Activation Procedures: No activation procedures were performed for this study period. Background: Normal. Posterior dominant rhythm symmetric. Frequency 10 Hz Alpha Amplitude 20-70 (medium). Organization - organized with an anterior to posterior gradient. Reactivity - present and reactive to external stimuli. Variability - present with distinct states of arousal. Continuity - continuous. Mild generalized slowing EKG: Normal sinus rhythm Sleep: Drowsiness was observed due to the presence of waxing and waning of the posterior reactive rhythm with eventual replacement by a mixture of Beta, Alpha, and Theta activity., Stage 2 sleep was observed due to the presence of symmetric vertex waves, sleep spindles, and K complexes. Interictal Findings: Focal slowing: Region(s): Lateralized: left temporal region and Prevalence: frequent (10% to 49%). Clinical and Electrographic Events: None this epoch Summary of Findings: Abnormal: This EEG is abnormal due to the presence of: No seizures this epoch, last at 0304 on 09/10/2023 Frequent left temporal slowing, indicative of focal dysfunction in this region Mild generalized slowing, indicative of nonspecific global dysfunction Comparison to Previous Studies: Significant improvement in the degree of epileptogenicity Clinical Comments: Generalized slowing - The above-described findings of diffuse slowing are etiologically non-specific, and similar findings have been reported in cases of toxic, metabolic, hypoxic ischemic, infectious, medication, sleep deprivation, postictal, and other causes of diffuse and multifocal encephalopathy. Clinical correlation of this differential diagnosis is suggested. Focal slowing - The above finding of focal slowing is a nonspecific indicator of focal cerebral dysfunction. Focal slowing has been associated with structural lesions (including but not limited to neoplasm, stroke, bleed, trauma, infection) or functional abnormalities (ie postictal state, migraine,etc) affecting the underlying white matter. 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 Video monitoring was utilized and reviewed periodically by the physician for electroclinical correlation. Physician access to datawas available throughout the recording. Activation Procedures: No activation procedures were performed for this study period. Background: Normal. Posterior dominant rhythm symmetric. Frequency 10 Hz Alpha Amplitude 20-70 (medium). Organization - organized with an anterior to posterior gradient. Reactivity - present and reactive to external stimuli. Variability - present with distinct states of arousal. Continuity - continuous. Mild generalized slowing EKG: Normal sinus rhythm Sleep: Drowsiness was observed due to the presence of waxing and waning of the posterior reactive rhythm with eventual replacement by a mixture of Beta, Alpha, and Theta activity., Stage 2 sleep was observed due to the presence of symmetric vertex waves, sleep spindles, and K complexes. Interictal Findings: Focal slowing: Region(s): Lateralized: left temporal region and Prevalence: frequent (10% to 49%). Rare BIRDs (brief ictal rhythmic discharges) similar to seizure pattern described below but <10sin duration Clinical and Electrographic Events: Electrographic Summary: Left parietal (P3 max) rhythmic theta which increases in sharpness and voltage but with minimal spread compared to prior epoch. Patterns speeds up to alpha range with a rhythmic delta with intermixed sharp waves pattern before abrupt offset. 09/09/2023 Times 0409 0438 0518 0547 1459 1636 2237 09/10/23 Times 0228 0304 Clinical: No clinical correlate Summary of Findings: Abnormal: This EEG is abnormal due to the presence of: 9 Left parietal electrographic seizures, last at 0304 on 09/10/2023 Rare BIRDs in the left parietal region, indicative of epileptogenic potential Frequent left temporal slowing, indicative of focal dysfunction in this region Mild generalized slowing, indicative of nonspecific global dysfunction Comparison to Previous Studies: Significant improvement in the degree of epileptogenicity Clinical Comments: Focal slowing - The above finding of focal slowing is a nonspecific indicator of focal cerebral dysfunction. Focal slowing has been associated with structural lesions (including but not limited to neoplasm, stroke, bleed, trauma, infection) or functional abnormalities (ie postictal state, migraine,etc) affecting the underlying white matter. 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 Video monitoring was utilized and reviewed periodically by the physician for electroclinical correlation. Physician access to datawas available throughout the recording. Activation Procedures: Photic stimulation resulted in: no evidence of change from baseline Background: Normal. Posterior dominant rhythm symmetric. Frequency 10 Hz Alpha Amplitude 20-70 (medium). Organization - organized with an anterior to posterior gradient. Reactivity - present and reactive to external stimuli. Variability - present with distinct states of arousal. Continuity - continuous. Mild generalized slowing EKG: Normal sinus rhythm Sleep: Drowsiness was observed due to the presence of waxing and waning of the posterior reactive rhythm with eventual replacement by a mixture of Beta, Alpha, and Theta activity., Stage 2 sleep was observed due to the presence of symmetric vertex waves, sleep spindles, and K complexes. Interictal Findings: Focal slowing: Region(s): Lateralized: left temporal region and Prevalence: frequent (10% to 49%). Clinical and Electrographic Events: Approximately 1-2 seizures an hour, increasing with sleep states up to 3-4 per hour Clinical Electrographic, no clear correlate Duration: 15-90s Electrographic Summary: Left parietal (P3 max) rhythmic theta which increases in sharpness and voltage and spreads over the left parasagittal and bioccipital regions. Patterns speeds up to alpha range before abrupt offset, or at times with a rhythmic delta pattern tapering off at the end. 09/08/2023 Times 0648 0710 0824 1012 - Likely Electrographic - No clear clinical correlate (patient has brief nonsustained mouth movements- possibly right sided twitching based on muscle artifact but camera is facing the patient's left) 1050 1207 1243 1317 1336 1408 1444 1458 1524 1633 1658 1713 1724 1816 - 80 s, Electrographic - Patient responding appropriately to nursing during this 193 2205 2221 2239 2320 2336 09/09/2023 Times 0004 0021 0036 0056 0125 0206 0221 0245 0317 0350 Summary of Findings: Abnormal: This EEG is abnormal due to the presence of: Approximately 1-3 Left parietal electrographic seizures per hour, last at 0350 on 09/09/2023 Frequent left temporal slowing, indicative of focal dysfunction in this region Mild generalized slowing, indicative of nonspecific global dysfunction Comparison to Previous Studies: EEG 07/19/18 with left temporoparietal slowing. Clinical Comments: Focal slowing - The above finding of focal slowing is a nonspecific indicator of focal cerebral dysfunction. Focal slowing has been associated with structural lesions (including but not limited to neoplasm, stroke, bleed, trauma, infection) or functional abnormalities (ie postictal state, migraine,etc) affecting the underlying white matter. documented in this encounter Consult Notes * Mike Alfonso, OTR/L - 09/11/2023 11:15 AM EDTAssociated Order(s): ADULT OCCUPATIONAL THERAPY CONSULT IP GENERAL EVALUATION - Occupational Therapy [address] [address] Name: Kathy Godinez Location: [facility] A479/A Date: 09/11/2023 Time: 11:15 AM Kathy Godinez is a 78 year old female. Patient Status: Inpatient Insurance: Payor: [email or web address] Plan: [employer] [id number] RX [id number] Product Type: *No Product type* Patient Seen: at bedside, nursing cleared patient for therapy Patient Identified By: Name, ID Band and Date Diagnosis: seizure-like activity (09/11/23926) Status of treatment: Evaluation completed (09/11/23926) Orders: OT evaluation and treatment;OT OOB (09/11/23926) Weight Bearing Status: Weight bearing as tolerated (09/11/23926) Precautions: Alarms;Falls;Oxygen;Safety (09/11/23926) Total Treatment Time: 40 (09/11/23926) Past Medical History: Past Medical History: Diagnosis Date 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 COPD (chronic obstructive pulmonary disease) ([facility]) Quit smoking 2010 History of alcohol abuse Seizure-like activity ([facility]) 09/08/2023 Past Surgical History: Past Surgical History: Procedure Laterality Date ANESTH, LOWER ARM BONE SURGERY Arm reconstruction in s CAROTID (INTERNAL) ARTERY CATHETHER PLACEMENT Bilateral 02/26/2018 CATHETER PLACEMENT INTERNAL CAROTID ARTERY performed by Cristofer Thayer MD at OR [facility] CATARACT SURGERY,COMPLEX Bilateral 2017 DELIVERY COLONOSCOPY, DIAGNOSTIC (RECTUM) 02/27/2019 diverticulosis,colon/[facility] CORONARY ANGIOGRAPHY W/LEFT HEART CATH Right 04/11/2018 CORONARY ANGIOGRAPHY W/LEFT HEART CATH performed by Fer Barriga DO at CARDIAC LABS [facility] EGD, FLEXIBLE, DIAGNOSTIC 02/26/2019 mild gastritis, EGD/[facility] INFORMATION Ovarian cysts removed in 20s REMOVAL OF APPENDIX VERTEBRAL ARTERY CATHETER PLACEMENT Bilateral 02/26/2018 CATHETER PLACEMENT VERTEBRAL ARTERY, performed by Cristofer Thayer MD at OR [facility] Social History/Disposition Lives with: Spouse (09/11/231006) Assistance available: Yes (09/11/231006) Dwelling type: Multi-story home (09/11/231006) Entry steps: Ramp (09/11/231006) Inside steps: (ramp + lift) (09/11/231006) Bedroom location: 1st floor (09/11/231006) Bath location: 1st floor full bath (09/11/231006) Prior Level of Function Reported by: Patient (09/11/23926) Ambulation: Non-ambulatory with manual wheelchair;Non-ambulatory with electric wheelchair;Transfer via (09/11/23926) Transfer Via: Stand/pivot with assist (09/11/23926) Grooming: Independent (09/11/23926) Bathing: Assistance (09/11/23926) Dressing: Assistance (09/11/23926) Feeding: Independent (09/11/23926) Toileting: Assistance (09/11/23926) Meal Prep: Dependent (09/11/23926) Homemaking: Dependent (09/11/23926) Shopping: Dependent (09/11/23926) Durable Medical Equipment at home: Wheelchair;Stair glide/stair lift;Grab bars;Bedside commode (09/11/23926) Subjective: Patient sitting in chair upon arrival. Agreeable to OT session Pain: Patient has complaints of pain. Pain located at buttocks from sitting. Observations Consciousness: Alert (09/11/23926) Orientation: Oriented times 4 (09/11/23926) Psychosocial: Patient can communicate basic needs;Patient can converse in a social setting (09/11/23926) Sitting posture: Forward head;Rounded shoulders (09/11/23926) Standing posture: Forward head;Rounded shoulders (09/11/23926) Safety awareness: The Patient verbalizes insight of current deficits.;Needs cueing supervision. (09/11/23926) Other Findings Endurance: Sitting tolerance;Functional activity;Fair;Standing tolerance;Poor (09/11/23926) Light touch sensation: LUE;RUE;Intact (09/11/23926) Coordination: LUE;RUE;Intact (09/11/23926) Current Functional Status: Bilateral Upper Extremity Range of Motion: WFL (09/11/23926) Strength Assessment: (BUE 4/5 throughout) (09/11/23926) Self Care Feeding: Supervision (Please comment) (09/11/23926) Toileting: Dependent (hygiene while standing) (09/11/23926) Dressing Upper Body: Minimal Assistance (to manage gown) (09/11/23926) Lower Body: Dependent (to doff/don socks) (09/11/23926) Functional Ambulation Assistive Device: No device (09/11/23926) Distance in feet:: 3 (+3) (09/11/23926) Level of Assistance: Moderate Assistance (x2 to left, maxAx2 to right) (09/11/23926) OT Transfers Sit-Stand: Moderate Assistance (x2) (09/11/23926) Stand-Sit: Moderate Assistance (x2) (09/11/23926) Balance Sit (Static): Fair (09/11/23926) Sit (Dynamic): Fair (- to poor+) (09/11/23926) Stand (Static): Poor (-) (09/11/23926) Stand (Dynamic): Poor (- to absent) (09/11/23926) Alarm Status Patient positioned in: Chair (09/11/23926) With: Pressure pad alarm intact and functioning and call sky in reach (09/11/23926) Following session patient seated OOB in chair with chair alarm activated and cord plugged into call sky system. Patient and Family Goals: to get well and to return home Patient Education Education Topic: Role of OT;Plan of care goals (09/11/23926) Review of Precautions: Safety;Fall (09/11/23926) Method of Education: Verbalized to patient (09/11/23926) Education Provided to: Patient (09/11/23926) Response to Education: Receptive and agreeable to education (09/11/23926) Barriers to learning: Medical status (09/11/23926) Preferred learning method: Combination (09/11/23926) Treatment Provided: Self Halfway Management Trainin minutes Therapeutic Activity: 13 minutes Evaluation Moderate Complexity 16 minutes - 57290: Patient was cooperative and pleasant during treatment session. Moderate complexity evaluation performed and 3-5 activity limitations were identified, including ADL deficit, functional mobility deficit, bed mobility deficit, decreased strength, decreased endurance, and impaired balance. Minimal or moderate modification of the functional task was necessary to complete the evaluation. Deficits Requiring O.T. Treatment: Deficits requiring O.T. treatment needs: ADL/self-care;Balance;Endurance;Functional mobility;Safety;Upper extremity strength;Weakness (09/11/23926) Assessment: Patient was admitted to [facility] on 09/08/23 for seizure-like activity. Patient was cooperative and agreeable to participate in OT evaluation this date. Prior to admission patient was requiring assistance with ADLs and uses a manual (or electric when in community) wheelchair at baseline. Shetypically transfers via stand-pivot with assist from . She can complete UB ADLs and feeds her self however has assistance with LB ADLs. She sleeps in a recliner at baseline. During session patient required modA x2 for sit/stand transfers. She completed functional mobility of 3ft to commode with modA x2 (pivoting towards left which is her stronger side due to RLE weakness). She required total assist for toileting/hygiene while standing, still requiring assist x2 to maintain balance. In addition, pt engaged in 3ft mobility back to chair (moving to R) and required maxA x2 with greater difficulty moving to R side. Assist x2 given to weight- shift to allow patient to advance RLE. Of note, Rknee hyperextends and pt reports weakness at ankles (rolling it several times before). She has previously tried braces but none have worked for her and caused discomfort. Once in chair pt attempted to scoot self back however did end up requiring assistance to boost buttocks back. Following session pt in chair with all needs met. Educated patient and on additional rehab following hospital stay. Currently, patients presents with deficits in ADLs and functional mobility, as well as decreased strength, decreased endurance, decreased balance and safety. Patient would benefit from continuedOT services to improve independence in ADLs and functional mobility. When medically appropriate, Please consider post-acute care services which may include home health, snf, outpatient therapy or inpatient rehabilitation. The level of care will be determined in collaboration with patient, family/caregiver and care team members. Goals: Demonstrates Self-Care at: UB Bathing: supervision LB Bathing: ModA UB Dressing: supervision to don gown/robe/shirt LB Dressing: ModA don socks/shoes/pants Grooming: supervision Feeding: independent Toileting: ModA Demonstrates Bed Mobility at: Supine to sit: Yuliya Sit to supine: Yuliya Demonstrates balance at: Sitting balance: Fair Standing balance: Poor+ Transfers: Sit to Stand: Yuliya Stand to Sit: Yuliya Bed<>chair via stand pivot: Yuliya Toilet: Yuliya Functional Ambulation at Yuliya with AD PRN Demonstrates standing endurance at 3 minutes to increase ability to safely perform transfers/mobility Increase Strength of B UEs 1/2 muscle grade Goal Time Frame: 10 visits Treatment Plan: Safety, Bed mobility training, Functional Ambulation, Transfer Training, Upper extremity strengthening, Balance activities, ADL training and Endurance Anticipated Frequency (on eval): 1 to 3 times per week (09/11/23926) AM-PAC Help From Another Person Eating Meals: A little (09/11/23926) Help From Another Person Taking Care of Personal Grooming: A little (09/11/23926) Help From Another Person To Put On/Take Off Upper Body Clothing: A little (09/11/23926) Help From Another Person To Put On/Take Off Lower Body Clothing: Total (09/11/23926) Help From Another Person Toileting: Total (09/11/23926) Help From Another Person Bathing: A lot (09/11/23926) OT AM-PAC Score: 13 (09/11/23926) OT AM-PAC t-Scale Score: 32.03 (09/11/23926) HLM (Highest Level of Mobility) Goal: Level 3 sit at edge of bed (09/11/23 1007) A portion of this AM-PAC assessment not scored based on functional assessment; rather clinical decision making utilized based on current findings and/or prior level of function. Please refer to future AM-PAC calculations of functional ability as they become available. * Doretha Kilgore, PT - 09/11/2023 10:07 AM EDTAssociated Order(s): ADULT PHYSICAL THERAPY CONSULT IP GENERAL EVALUATION - Physical Therapy [address] [address] Name: Kathy Godinez Location: [facility] A479/A Date: 09/11/2023 Time: 1007 Kathy Godinez is a/an 78 year old female. Patient Status: Inpatient Insurance: Payor: [email or web address] Plan: [email or web address]IC [id number] MH-1D Product Type: *No Product type* Patient Seen: at bedside, nursing cleared patient for therapy Patient Identified By: Name, ID Band and Date Diagnosis: seizure (09/11/23 1007) Status of treatment: Evaluation completed (09/11/23 1007) Orders: PT evaluation and treatment;OOB (09/11/231006) Weight Bearing Status: Weight bearing as tolerated (09/11/231006) Precautions: Alarms;Falls;Safety;Oxygen (2 L O2) (09/11/23 1007) Total Treatment Time--free text: 40 (09/11/23 1007) Past Medical History: Past Medical History: Diagnosis Date 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 COPD (chronic obstructive pulmonary disease) ([facility]) Quit smoking 2010 History of alcohol abuse Seizure-like activity (HCC) 09/08/2023 Past Surgical History: Past Surgical History: Procedure Laterality Date ANESTH, LOWER ARM BONE SURGERY Arm reconstruction in 's CAROTID (INTERNAL) ARTERY CATHETHER PLACEMENT Bilateral 02/26/2018 CATHETER PLACEMENT INTERNAL CAROTID ARTERY performed by Cristofer Thayer MD at OR [facility] CATARACT SURGERY,COMPLEX Bilateral 2017 DELIVERY COLONOSCOPY, DIAGNOSTIC (RECTUM) 02/27/2019 diverticulosis,colon/[facility] CORONARY ANGIOGRAPHY W/LEFT HEART CATH Right 04/11/2018 CORONARY ANGIOGRAPHY W/LEFT HEART CATH performed by Fer Barriga DO at CARDIAC LABS [facility] EGD, FLEXIBLE, DIAGNOSTIC 02/26/2019 mild gastritis, EGD/[facility] INFORMATION Ovarian cysts removed in 20s REMOVAL OF APPENDIX VERTEBRAL ARTERY CATHETER PLACEMENT Bilateral 02/26/2018 CATHETER PLACEMENT VERTEBRAL ARTERY, performed by Cristofer Thayer MD at OR [facility] Subjective: Pt awake in chair, agreeable to PT. Social History/Disposition Lives with: Spouse (09/11/231006) Assistance available: Yes (09/11/231006) Dwelling type: Multi-story home (09/11/231006) Entry steps: Ramp (09/11/231006) Inside steps: (ramp + lift) (09/11/231006) Bedroom location: 1st floor (09/11/231006) Bath location: 1st floor full bath (09/11/231006) Prior Level of Function Reported by: Patient (09/11/231006) Ambulation: Transfer via (ambulates a few steps with assist to get to wheelchair, or stand pivot transfers with assist. also uses manual wheelchair in home and electric wheelchair in community.) (09/11/231006) Transfer Via: Stand/pivot with assist (ambulates a few steps with assist) (09/11/231006) Devices at home: Wheelchair;Bedside commode (lift chair, electric and manual wheelchair) (09/11/231006) Observations Consciousness: Alert (09/11/231006) Orientation: Oriented times 4 (09/11/231006) Psychosocial: Patient can communicate basic needs;Patient can converse in a social setting (09/11/231006) Other Findings: Yes (09/11/231006) Findings: Light touch sensation (09/11/231006) Light Touch Sensation Results: Intact;LLE;RLE (09/11/231006) Sitting Posture: Forward head;Rounded shoulders (09/11/231006) Standing Posture: Forward head;Rounded shoulders;Posterior lean (pushes posterior when trying to advance) (09/11/231006) Pain: No complaints of pain Range of Motion Range of Motion: WFL (09/11/231006) Strength Assessment Strength Assessment: Deficits noted (09/11/231006) WNL, except: LLE;RLE (09/11/231006) LLE: Hip;Knee;Ankle;4-/5 (09/11/231006) RLE: Hip;Knee;2/5;Ankle;1/5 (09/11/231006) Transfers Sit-Stand: Moderate Assistance (x2, 4 times) (09/11/231006) Stand-Sit: Moderate Assistance (x2) (09/11/231006) Ambulation: Distance ambulated (feet): 3 ft + 3 ft Assistive Device: No device Assist: Moderate Assistance x2 to left and Maximal Assistance x2 to right Balance Sit (Static): Fair (-) (09/11/231006) Sit (Dynamic): Fair (- to poor+) (09/11/231006) Stand (Static): Poor (-) (09/11/231006) Stand (Dynamic): Poor (- to absent) (09/11/231006) Patient and or Family Goal(s): to get well and to return home Patient Education Review of Precautions: Safety;Fall (role of PT) (09/11/231006) Review of Exercises: Pt Demonstrated Exercise;Verbal Exercises Provided (09/11/231006) Safety Awareness: Patient verbalizes insight of current deficits;Patient can communicate basic needs (09/11/231006) Preferred learning method: Combination (09/11/231006) Barriers to learning: Medical Status;Cognition (09/11/231006) Method of Education: Verbalized to patient;Patient demonstrated task (09/11/231006) Topic of Education: Safety with mobility, Goals/plan of care, and Fall prevention Method of Education: Verbal discussion and explanation provided to pt: verbalized understanding andor agreement of this information and demonstrated the exercise and or task Extremity Exercise Standing: (sit to stand transfer training from chair and commode) (09/11/231006) Treatment Provided: Therapeutic Activities 25 minutes: bed mobility training transfer training toilet transfer training Evaluation Moderate Complexity 15 minutes - 08094: Patient was cooperative during treatment session. Moderate complexity evaluation performed and 1-2 personal factors or comorbidities were identifiedthat will impact plan of care, including history of COPD and limited mobility at baseline. Patient presents with limitations in strength, bed mobility, transfers, gait, elevations, balance, endurance, and safety, which will impact plan of care. These limitations will be addressed by the goals set for this patient. Alarm Status Patient positioned in: Chair (04/08/24 1007) With: Pressure pad alarm intact and functioning and call sky in reach (alarm plugged in) (007) Treatment Status: Treatment at bedside (09/11/23 1007) Goals: Demonstrate Bed Mobility with: minimal assistance Demonstrate Sit to/from Stand and/or Stand Pivot Transfers or Stand Pivot Transfers with: minimal assistance Demonstrate Ambulation: minimal assistance, least restrictive AD, 15 ft Propel manual wheelchair: 50 ft with supervision Increase Strength of: B/L LE by 1/2-1 muscle grade Increase Balance: dynamic standing balance to poor+ Increase Safety: of functional mobility Time Frame: 9-10 visits Assessment: Pt is 78 year old female presenting with seizure. Pt seen on this date for initial evaluation. Prior to admission, pt reports living in bi-level house with 1st floor bedroom and bathroom (ramp to enter) with who is able to assist if needed. Pt reports she typically uses manual wheelchair when in the house and electric wheelchair when in the community. Pt transfers to her wheelchair via stand pivot or taking a few steps on her own in the morning, but needs her 's assistance further in the day as she gets weaker. Pt is able to self-propel her wheelchair. Pt has a liftchair that she sleeps in and uses to stand. Pt and her report her right ankle rolls and right knee hyperextends at baseline, but she is unable to tolerate any brace or wrap. During session, pt was cooperative. Upon initial evaluation, pt was able to perform sit to stand transfers from chairwith modA x2 and ambulated 3 ft to commode to her left with modA x2 and no device. Pt was unsteady and required assistance to weight shifting and advance B/L LE, R moreso than L. When finished, pt performed sit to stand transfers from commode modA x2 and ambulated 3 ft to chair to her R with maxA x2. Pt had significantly more trouble going to her R. Following session, pt positioned in chair with alarm and call sky in reach. Cord plugged into call sky system. Pt presents with deficits in streng th, endurance, mobility, ambulation, and balance, all of which are currently negatively impacting pt's quality of life. Pt would continue to benefit from skilled PT services while inpatient at hospital to reach established goals and address deficits. Pt is not safe to return home at this time due to current functional mobility status and requiring modA x2 to maxA x2 for all mobility. Discussed this with pt and family. Please consider post-acute care services which may include home health, snf, outpatient therapy or inpatient rehabilitation. The level of care will be determined in collaboration with patient, family/caregiver and care team members. All needs met. Deficits requiring P.T. treatment needs: Safety;Mobility;Balance;Weakness;Endurance;Lower extremitystrength (09/11/23 1007) Equipment Needs: Equipment needs: (TBD) (09/11/23 1007) Treatment Plan: Bed mobility training, Transfer training, Gait training, Wheelchair mobility training, Strengthening exercises: B/L LE, Balance activities, and Educate on safety with functional mobility Anticipated Frequency (on eval): 1 to 3 times per week (09/11/23 1007) AM PAC Score with Stairs: 9 A portion of this AM-PAC assessment not scored based on functional assessment; rather clinical decision making utilized based on current findings and/or prior level of function. Please refer to future AM-PAC calculations of functional ability as they become available. 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 The treatment was 04/03/2018, she was followedup by Dr. Jeovany zamorano in November 2020 and started on decadron with the caveat to follow up with rad/oncfor management. She was to get MRI and CTA, the MRI was not a completed study, the CTA had looked sl ightly improved overall from the read prior. She had a CTA at OSH, no read available but on life image. She has been following with neurology at [place] for her AVM and seizures. She has been taking her medications lately but had a headache for 4 days prior to the seizures and admission at [facility]. Patient is currently not amenable to sedation or intubation for an MRI if needed. We have been asked to evaluate her AVM. HISTORY: Past Medical History: Past Medical History: Diagnosis Date COPD (chronic obstructive pulmonary disease) (HCC) Quit smoking 2010 History of alcohol abuse Past Surgical History: Past Surgical History: Procedure Laterality Date ANESTH, LOWER ARM BONE SURGERY Arm reconstruction in 80's CAROTID (INTERNAL) ARTERY CATHETHER PLACEMENT Bilateral 02/26/2018 CATHETER PLACEMENT INTERNAL CAROTID ARTERY performed by Cristofer Thayer MD at [facility] CATARACT SURGERY,COMPLEX Bilateral 2017 DELIVERY COLONOSCOPY, DIAGNOSTIC (RECTUM) 02/27/2019 diverticulosis,colon/[facility] CORONARY ANGIOGRAPHY W/LEFT HEART CATH Right 04/11/2018 CORONARY ANGIOGRAPHY W/LEFT HEART CATH performed by Fer Barriga DO at [facility] EGD, FLEXIBLE, DIAGNOSTIC 02/26/2019 mild gastritis, EGD/[facility] INFORMATION Ovarian cysts removed in 20s REMOVAL OF APPENDIX VERTEBRAL ARTERY CATHETER PLACEMENT Bilateral 02/26/2018 CATHETER PLACEMENT VERTEBRAL ARTERY, performed by Cristofer Thayer MD at OR [facility] Social History: Social History Tobacco Use Smoking status: Former Current packs/day: 0.00 Average packs/day: 1 pack/day for 46.0 years (46.0 ttl pk-yrs) Types: Cigarettes Start date: 10/26/1964 Quit date: 10/26/2010 Years since quittin.8 Passive exposure: Past Smokeless tobacco: Never Vaping Use Vaping Use: Never used Substance Use Topics Alcohol use: No Comment: Pt had previous history of alcohol abuse- she has not had a drink in 22 years Drug use: No Family History: Family History Problem Relation Age of Onset Neurological Disorder Mother CVA in 80s Heart Disorder Mother MD Dementia Mother Depression Mother Cancer Sister Lung- passed, smoker Other (Suicide) Brother age 25 Other (Depression) Sister Current Hospital Medications: Note that completed medications (per the MAR) continue to display for 24 hours. Ordered medicationsto be given in the future also display. Current Facility-Administered Medications Medication Dose Route Frequency Provider atorvaSTATin (Lipitor) tab 20 mg 20 mg Oral Daily(AM) Jorge Luis Oneil DO Calcium Carbonate 500 mg + Vitamin D 5 mcg (200 units) per tab 1 Tablet Oral With meals Jorge Luis Oneil DO cloBAZam (Onfi) tab 15 mg 15 mg Oral Daily(AM) William Meza MD divalproex ER (Depakote ER) extended release tab 750 mg 750 mg Oral BID(AM/PM) Jorge Luis Oneil DO Docusate Sodium (Colace) cap 100 mg 100 mg Oral BID(AM/PM) Jorge Luis Oneil DO DULoxetine (Cymbalta) DR cap 20 mg 20 mg Oral Daily(AM) Jorge Luis Oneil DO [START ON 09/09/2023] Enoxaparin (Lovenox) inj 40 mg 40 mg Subcutaneous Daily(AM) Jorge Luis Oneil DO Ferrous Sulfate (Feosol) tab 325 mg 325 mg Oral Daily Noon Jorge Luis Oneil DO fluticasone furoate-vilanterol (BREO ellipta) 200-25 MCG/ACT inhaler 1 Puff 1 Puff Inhalation Resp Daily Jorge Luis Oneil DO levETIRAcetam (Keppra) tab 1,500 mg 1,500 mg Oral Daily(AM) Jorge Luis Oneil DO levETIRAcetam (Keppra) tab 1,500 mg 1,500 mg Oral QHS William Meza MD metoprolol succinate XL (toPROL XL) tab 25 mg 25 mg Oral Daily PRN Jorge Luis Oneil DO multivitamin (Mvi) 1 Tablet 1 Tablet Oral Daily Noon Jorge Luis Oneil DO sodium chloride 0.9 % flush/inj 3 mL 3 mL IV Push PRN Jorge Luis Oneil DO traMADol (Ultram) tab 50 mg 50 mg Oral Q8H PRN Jorge Luis Oneil DO umeclidinium [place] (INCRUSE ellipta) 62.5 MCG/ACT inhaler 1 Puff 1 Puff Inhalation Resp Daily Jorge Luis Oneil DO Allergies: Ciprofloxacin, Vimpat [lacosamide], Morphine, Other allergy (see comments), and Sulfa antibiotics ROS: Constitutional: (-) fever chills sweats or weight loss, (+) weakness, (+) fatigue, and (-) otherwise negative Eyes: (-) negative, no amaurosis fugax, pain, blurred vision, or redness and (-) otherwise negative ENT: (+) headaches and (-) otherwise negative Cardiovascular: (-) negative: no chest pain, dyspnea, syncope, or palpitations and (-) otherwise negative Pulmonary: (-) negative: no cough, wheezing, or shortness of breath and (-) otherwise negative Abdominal/GI: (-) negative: no pain, heartburn, dysphagia, bleeding, change in bowel habits, nauseaor vomiting and (-) otherwise negative Female : (-) negative: no dysuria, pelvic pain, irregular menses, or vaginal discharge, (-) otherwise negative Musculoskeletal: (+) muscle weakness and (-) otherwise negative Endocrine: (-) negative: no weight change, heat or cold intolerance, polyuria and (-) otherwise negative Hematology/oncology: (-) negative: no fever, night sweats, masses, or swollen nodes and (-) otherwise negative Skin: (-) negative: no rash or new or changing moles and (-) otherwise negative Neurology: (+) focal weakness RLE, (+) generalized weakness, (+) headaches, (+) seizures, and (-) otherwise negative PHYSICAL EXAMINATION: Most Recent Vital Signs: BP: 125 mmHg/66 mmHg (09/08/231129) Pulse: 85 (09/08/231129) Temp: 36.78 C (09/08/231129) Temp Summary: Temp Min: 36.7 C (98.1 F) Max: 36.9 C (98.4 F) SpO2: 98 % (09/08/231129) O2 flow rate: 2 L/MIN (09/08/231129) Supplemental O2 Delivery: Nasal Cannula (09/08/231129) Vital Signs Over Last 24 Hours: Systolic BP: Most Recent Systolic BP Av.3 mmHg Min: 125 mmHg Max: 154 mmHg Temperature: Most Recent Temperature Av.8 C Min: 36.72 C Max: 36.89 C Pulse: Pulse Av.7 Min: 77 Max: 85 Respirations: Resp Av Min: 16 Max: 18 SpO2: SpO2 Av.3 % Min: 97 % Max: 100 % GCS: Eyes Open: 4 = spontaneous Best Verbal Response: 5 = verbally appropriate for age Best Motor Response: 6 = obeys commands appropriate for age Coma Score: 15 Basic Mental Status: Consciousness: lethargic, Orientation: person, place, time - year, Language Speech: patient with mild expressive aphasia Commands: follows commands Cranial Nerves: CN II: visual acuity grossly intact, pupils: pupils equal, round, and reactive at 3mm, CN III: extra ocular movements intact, CN IV: extra ocular movements intact, CN V: facial sensation intact in all distributions, CN : extra ocular movements intact, CN VII: can't raise eyebrows, CN VIII: hearing grossly intact, CN IX CN X: swallow present, CN XI: not able to shoulder shrug ,CN XII: tongue midline Motor Function: decreased tone and bulk LE. Strength UE Is 5/5, right had a little contorted; LLE is good strength overall; RLE moves foot 2/5, flicker in the hip area Sensation: sensation intact to: light touch Pronator Drift: very mild right drift Abdomen soft, NT Currently hooked up to LTM Pulses 2+ feet, popliteal, groin LABS: Labs reviewed as indicated below: Latest Reference Range & Units 09/08/23 02:06 Sodium 135 - 146 mmol/L 141 Potassium 3.5 - 5.1 mmol/L 4.2 Chloride 98 - 107 mmol/L 105 CO2 22 - 32 mmol/L 25 BUN 6 - 20 mg/dL 19 Creatinine 0.5 - 1.0 mg/dL 0.6 Estimated Glomerular Filtration Rate >=60 mL/min >90 Anion Gap 7 - 15 mmol/L 11 Glucose 70 - 120 mg/dL 103 Calcium 8.4 - 10.2 mg/dL 9.4 Lactate 0.4 - 2.0 mmol/L 0.9 CBC Rpt WBC 4.00 - 10.80 K/uL 7.80 RBC 3.85 - 5.15 M/uL 3.81 HGB 12.0 - 15.3 g/dL 12.9 HCT 36.0 - 45.2 % 39.0 MCV 81.5 - 97.5 fL 102.4 MCH 27.0 - 34.0 pg 33.9 MCHC 32.0 - 36.0 g/dL 33.1 RDW 11.5 - 15.5 % 12.7 PLT 140 - 400 K/uL 189 MPV 6.6 - 11.1 fL 8.7 Rpt: View report in Results Review for more information IMAGING: My Interpretation of Current Images: lifeimage CTA some calcifications are noted at prior AVM site,no active bleeding is noted. 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 Pulmonary emphysema (HCC) J43.9 Chronic deep vein thrombosis of left femoral vein (HCC) I82.512 Anticoagulated on Coumadin Z79.01 Chronic respiratory failure with hypoxia (HCC) J96.11 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, 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 Old MD (myocardial infarction) I25.2 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) F10.21 Encounter for antineoplastic chemotherapy Z51.11 COPD, group B, by GOLD 2017 classification (HCC) J44.9 PVD (peripheral vascular disease) (HCC) I73.9 Atherosclerosis of [place] coronary artery without angina pectoris I25.10 Claustrophobia F40.240 CHAPO (generalized anxiety disorder) F41.1 Seizure-like activity (HCC) R56.9 RECOMMENDATIONS: Further recs to follow after review of imaging with attending AEDs and seizure management as per primary team Will follow Patient d/w senior resident recreational programs director I did not see the patient, but I have reviewed the trainee documentation and was readily available on date of service. documented in this encounter Nursing Notes * Sammie Whalen RN - 09/12/2023 2:07 PM EDT Report called to nursing staff at [facility]. * Jovani Mayorga NA - 09/09/2023 10:15 AM EDT Post Anesthesia Care Unit Transport Note [address] [address] Dept[address] Kathy Godinez Transported from PeriOp to : [id number] Time: 1010 Care of patient transferred to: Kirsten FARLEY Transported via: Bed Belongings with Patient: Not Applicable Pulse : 75 Temp : 36 BP : 146/71 Respirations : 16 Pulse Ox : 97 O2 : 2L NC SCDS: N/A * Sheri Jacinto RN - 09/09/2023 9:50 AM EDT PERIOP TO IP HANDOFF COMMUNICATION NOTE [address] [address] Name: Kathy Godinez AGE: [age] year old Location: OR [facility]/OR Date: 09/09/2023 Attention to: Yamel Hernandez RN Report from: Sheri Jacinto RN Patient arriving via: Bed Time of call: 9:51 AM Phone Ext: [phone] Reason for SBAR (Situation, Background, Assessment, Recommendation) handoff: OR Sending to: OLINDA Castro Emotional/Personal Events & Special Needs: N/A Prescriptions in chart: No Code Status: Full Code Safety Concerns: no safety concerns identified Allergies: Ciprofloxacin, Vimpat [lacosamide], Morphine, Other allergy (see comments), and Sulfa antibiotics PMH: Past Medical History: Diagnosis Date COPD (chronic obstructive pulmonary disease) ([facility]) Quit smoking 2010 History of alcohol abuse PSH: Past Surgical History: Procedure Laterality Date ANESTH, LOWER ARM BONE SURGERY Arm reconstruction in 80's CAROTID (INTERNAL) ARTERY CATHETHER PLACEMENT Bilateral 02/26/2018 CATHETER PLACEMENT INTERNAL CAROTID ARTERY performed by Cristofer Thayer MD at [facility] CATARACT SURGERY,COMPLEX Bilateral 2017 DELIVERY COLONOSCOPY, DIAGNOSTIC (RECTUM) 02/27/2019 diverticulosis,colon/[facility] CORONARY ANGIOGRAPHY W/LEFT HEART CATH Right 04/11/2018 CORONARY ANGIOGRAPHY W/LEFT HEART CATH performed by Fer Barriga DO at [facility] EGD, FLEXIBLE, DIAGNOSTIC 02/26/2019 mild gastritis, EGD/[facility] INFORMATION Ovarian cysts removed in 20s REMOVAL OF APPENDIX VERTEBRAL ARTERY CATHETER PLACEMENT Bilateral 02/26/2018 CATHETER PLACEMENT VERTEBRAL ARTERY, performed by Cristofer Thayer MD at [facility] Isolation: Isolation: Procedure: CATHETER PLACEMENT INTERNAL CAROTID ARTERY CATHETER PLACEMENT VERTEBRAL ARTERY, Type of Anesthesia: General endotracheal anesthesia Block: N/A IV intake: 450 mL EBL: OR: 10 mL PACU: 0 mL Urine output: OR 0 mL PACU 200 mL IUBC (Meza): Incision location: right groin Dressing location: right groin Time of last skin assessment: 913 Pressure injuries or areas of concern: bony prominences Lines: Urethral Catheter Regular catheter (Active) Site Assessment Clean;Skin intact 09/09/23944 Securement Method Securing device (Describe) 09/09/23944 Catheter secured to leg? Yes 09/09/23944 Catheter bag below bladder? Yes 09/09/23944 Has IUBC been removed? (If yes, ensure the order is discontinued.) No, acute urinary retention 09/09/2345 IUBC Tubing Disconnected This Shift? No 09/09/2345 Collection Container Standard drainage 09/09/23944 Urine Description Yellow;Darcy 09/09/23 09 Output (mL) 200 mL 09/09/23 0937 Number of days: 1 Peripheral Line Left;Lower Arm (Active) Status Flushes easily 09/09/23915 Tubing Changed No 09/09/23915 Phlebitis Scale 0 09/09/23915 Infiltration Scale 0 09/09/23915 Site Description (Other) Without redness, swelling or drainage 09/09/23915 Site Intervention None required 09/09/23915 Dressing Assessment Dressing clean, dry, and intact 09/09/23915 Dressing Intervention None required 09/09/23915 Number of days: 2 Vital Signs: BP: 157/68 (09/09/23944) Temp: 36.1 C (97 F) (09/09/23944) Pulse: 79 (09/09/23944) Resp: 18 (09/09/23944) SpO2: 96 % (09/09/23944) O2 flow rate: 2 L/MIN (09/09/23944) Time of last pain medication: 953 Med: Tramadol Time of last antibiotic: N/A Med: N/A Time of last antiemetic: Zofran Med: 846 [employer]IL AND [employer]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 Drips: no Neurological: Neuro WNL: X - Exceptions to WNL as documented below (no change from previous assessment) () Speech: Clear (09/09/23944) Level of Consciousness: Alert (09/09/23944) RUE Motor Strength: 4-Active movement with some resistance (09/09/23944) RLE Motor Strength: 2-Active movement with gravity eliminated (09/09/23944) LUE Motor Strength: 4-Active movement with some resistance (09/09/23944) LLE Motor Strength: 3-Active movement against gravity (09/09/23944) Coma Score: 15 (09/09/23944) Respiratory: Respiratory WNL: WNL- within normal limits (09/09/23944) Cough: None (09/09/23944) Depth/Rhythm: Regular (09/09/23944) Dyspnea Occurance: None (09/09/23944) Effort: Unlabored (09/09/23944) Oxygen therapy/ Mechanical vent Supplemental O2 Delivery: Nasal Cannula (09/09/23944) O2 flow rate: 2 L/MIN (09/09/23944) Cardiac: Cardiovascular WNL: X - Exceptions to WNL as documented below (09/09/23944) Heart Sounds: S1;S2 (09/09/23944) Rhythm: Regular;NSR (09/09/23944) CA interval: 0.2 seconds (09/09/23 0000) QRS: 0.05 seconds (09/09/23 0000) Extremities: +Sensation;Right;Left;Upper;Lower;Minier;Warm (09/09/23944) Pulses Right: Dorsalis Pedis +;Palpable;Radial + (09/09/23944) Pulses Left: Dorsalis Pedis +;Palpable;Radial + (09/09/23944) Edema Location: Lower extremities;Both (09/09/23944) Edema Assessment: +1 - Description (09/09/23944) Capillary Refill: 3 sec (09/09/23944) GI: GI WNL: WNL - within normal limits (09/09/23944) Abdomen: Soft;Non-distended;Rounded (09/09/23944) : WNL: X - Exceptions to WNL as documented below (09/09/23944) Urine Description: Clear;Yellow (09/09/23858) Urethral Catheter Regular catheter (Active) Site Assessment Clean;Skin intact 09/09/23944 Securement Method Securing device (Describe) 09/09/23944 Catheter secured to leg? Yes 09/09/23944 Catheter bag below bladder? Yes 09/09/23944 Has IUBC been removed? (If yes, ensure the order is discontinued.) No, acute urinary retention 09/09/23944 IUBC Tubing Disconnected This Shift? No 09/09/23944 Collection Container Standard drainage 09/09/23944 Urine Description Yellow;Darcy 09/09/23904 Output (mL) 200 mL 09/09/23936 Number of days: 1 Due to Void: N/A IUBC in place Integumentary:Integumentary WNL: WNL - within normal limits (09/09/23944) Skin Description: Dry;Warm (09/09/23944) Skin Color: Minier (09/09/23944) Skin Lesion: Ecchymosis;Other - Describe (see below) (09/08/232004) Bobby Score (auto-calculation): 15 (09/08/232301) Family updated on transfer: no Additional Assessment Information: N/A * Sheri Jacinto RN - 09/09/2023 9:14 AM EDT Dual Licensed Skin Assessment completed by Sheri Robbins RN and Lashay Robert RN. The patient is/has a N/A Skin Breakdown (includes non blanchable erythema): Yes - Surgical/Procedural changes only. MAD B/L groin and buttocks. Nursing Interventions: T&P Q 2 hr and moisture prevention barriers * Letha Medellin RN - 09/09/2023 8:02 AM EDT [facility]ovascular RN note Name: Kathy Godinez Date: 09/09/2023 Time: 8:02 AM Location: OR [facility] Date of Service: 09/09/2023 Patient arrived at 0739 to [facility] OR for a Diagnostic cerebral angiogram. Patient ID band checked using two identifiers. Patient placed supine on procedure table with comfort measures intact; bilateral arm boards and safety strap in place. Hemodynamic monitoring placed with anesthesia staff remaining at bedside for direct care. Distal pulses dopplered and marked. RT staff prepares and preps for procedure. Anesthesia: General Procedure by physician. 0811 Groin puncture. Access obtained on right. 5 Fr sheath placed. Catheter positioning under fluoroscopy. Angiogram in progress. 0828 3-D imaging obtained. Imaging finished. Catheters removed. 0845 Sheath removed and manual pressure to site. Procedure ends. 0900 Hemostasis obtained. Area cleaned. Gauze and Tegaderm dressing applied. Distal pulse unchanged. Patient tolerated well. Reported by RT: Total contrast used: 99 ml DAP plane A: 0.10 Gy DAP plane B: 0.01 Gy Fluoro time plane A: 8.9 minutes Fluoro time plane B: 0.8 minutes Reported as per physician, please see operative note for details: Documentation for Quality Outcomes Database not indicated for this procedure. Implants: * No implants in log * * Clare Beyer RN - 09/09/2023 7:13 AM EDT Dual Licensed Skin Assessment completed by otoniel and michaela. The patient is/has a N/A Skin Breakdown (includes non blanchable erythema): Yes. Wound Type: Moisture associated skin damage/incontinent related skin damage, location groin and buttocks Wound Ostomy Nurse Notified: No - wound ostomy not needed at this time Nursing interventions: Incontinent care as needed and moisture barrier * Sebastian Reyes RN - 09/09/2023 6:46 AM EDT IP TO PERIOP HANDOFF COMMUNICATION NOTE [facility]-[address] [address] Name: Kathy Godinez AGE: [age] year old Location: OR [facility]/OR Date: 09/09/2023 Attention to: Pre-op Report from: Sebastian Reyes RN Patient arriving via: Bed Time of Call: 6:48 AM Phone Ext.: [phone] Reason for SBAR handoff: OR Consent: Emotional/Personal Events & Special Needs: n/a Allergies: Ciprofloxacin, Vimpat [lacosamide], Morphine, Other allergy (see comments), and Sulfa antibiotics PMH: Past Medical History: Diagnosis Date COPD (chronic obstructive pulmonary disease) (HCC) Quit smoking 2010 History of alcohol abuse PSH: Past Surgical History: Procedure Laterality Date ANESTH, LOWER ARM BONE SURGERY Arm reconstruction in 's CAROTID (INTERNAL) ARTERY CATHETHER PLACEMENT Bilateral 02/26/2018 CATHETER PLACEMENT INTERNAL CAROTID ARTERY performed by Cristofer Thayer MD at OR [facility] CATARACT SURGERY,COMPLEX Bilateral 2017 DELIVERY COLONOSCOPY, DIAGNOSTIC (RECTUM) 02/27/2019 diverticulosis,colon/[facility] CORONARY ANGIOGRAPHY W/LEFT HEART CATH Right 04/11/2018 CORONARY ANGIOGRAPHY W/LEFT HEART CATH performed by Fer Barriga DO at [facility]ARD[facility] EGD, FLEXIBLE, DIAGNOSTIC 02/26/2019 mild gastritis, EGD/[facility] INFORMATION Ovarian cysts removed in 20s REMOVAL OF APPENDIX VERTEBRAL ARTERY CATHETER PLACEMENT Bilateral 02/26/2018 CATHETER PLACEMENT VERTEBRAL ARTERY, performed by [facility] SYSTEM Isolation: Situation/Background Admission Date: 09/08/2023 Patient Service: Neurology Attending: Suzy Garcia MD Level of Care: Med Surg [3] Assessment Vital Signs: BP: 142/67 (09/09/23 0610) Temp: 36.6 C (97.9 F) (09/09/2310) Pulse: 84 (09/09/23609) Resp: 18 (09/09/23609) SpO2: 98 % (09/09/23609) O2 flow rate: 2 L/MIN (09/09/23609) Lines: Urethral Catheter Regular catheter (Active) Site Assessment Clean;Skin intact 09/08/232004 Securement Method Securing device (Describe) 09/08/232004 Catheter secured to leg? Yes 09/08/232004 Catheter bag below bladder? Yes 09/08/232004 Has IUBC been removed? (If yes, ensure the order is discontinued.) No, acute urinary retention 09/08/232004 IUBC Tubing Disconnected This Shift? No 09/08/232004 Collection Container Standard drainage 09/08/232004 Urine Description Clear;Yellow 09/08/232004 Output (mL) 200 mL 09/09/23 0603 Number of days: 1 Peripheral Line Left;Lower Arm (Active) Status Capped/Locked;Flushes easily;Alcohol disinfectant cap;Cap changed 09/08/23 2300 Tubing Changed N/A 09/08/232006 Phlebitis Scale 0 09/08/232006 Infiltration Scale 0 09/08/232006 Site Description (Other) Without redness, swelling or drainage 09/08/232006 Site Intervention Flushed 09/08/232006 Dressing Assessment Dressing clean, dry, and intact 09/08/232006 Dressing Intervention None required 09/08/232006 Number of days: 2 Restraints: No orders of the defined types were placed in this encounter. Labs: Please see Lab Flowsheet for lab values. Lab Comments: n/a Diet: Orders Placed This Encounter Procedures NPO After 2400 Except Meds NPO: Additional Diet Information: gave 0900 seizure medications Intake and Output: Intake/Output Summary (Last 24 hours) at 09/09/2023 0647 Last data filed at 09/09/2023 0603 Gross per 24 hour Intake 350 ml Output 200 ml Net 150 ml Belongings Remaining with Patient: wedding band What were AM meds taken with: water Time of last pain medication: n/a Med: n/a Time of last antibiotic: n/a Med: n/a Time of last skin assessment: 629 Pressure injuries or areas of concern: sacrum pink/blanchable Neurological: Neuro WNL: X - Exceptions to WNL as documented below (no change from previous assessment) () Speech: Expressive aphasia (09/08/232004) Level of Consciousness: Alert (09/08/232004) RUE Motor Strength: 4-Active movement with some resistance (09/08/232004) RLE Motor Strength: 3-Active movement against gravity (09/08/232004) LUE Motor Strength: 3-Active movement against gravity (09/08/232004) LLE Motor Strength: 4-Active movement with some resistance (09/08/232004) Coma Score: 15 (09/09/23 0300) Respiratory: Respiratory WNL: X - Exceptions to WNL as documented below (09/08/232004) Cough: None (09/08/23 08) Depth/Rhythm: Regular (09/08/23 08) Dyspnea Occurance: None (09/08/23 08) Effort: Unlabored (09/08/23 08) Oxygen therapy/ Mechanical vent Supplemental O2 Delivery: Nasal Cannula (09/09/23 06) O2 flow rate: 2 L/MIN (09/09/23 0610) Cardiac: Cardiovascular WNL: X - Exceptions to WNL as documented below (09/08/232004) Heart Sounds: S1;S2 (09/08/23 0155) Rhythm: NSR (09/09/23 0610) CA interval: 0.2 seconds (09/09/23 0000) QRS: 0.05 seconds (09/09/23 0000) Pulses Right: Radial +;Dorsalis Pedis + (09/08/23 0155) Pulses Left: Radial +;Dorsalis Pedis + (09/08/23 0155) Edema Location: Generalized (09/08/232004) Edema Assessment: +1 - Description (09/08/232004) GI: GI WNL: WNL - within normal limits (09/08/232004) Abdomen: Soft;Non-distended;Rounded (09/08/23 0800) : WNL: X - Exceptions to WNL as documented below (09/08/232004) Urethral Catheter Regular catheter (Active) Site Assessment Clean;Skin intact 09/08/232004 Securement Method Securing device (Describe) 09/08/232004 Catheter secured to leg? Yes 09/08/232004 Catheter bag below bladder? Yes 09/08/232004 Has IUBC been removed? (If yes, ensure the order is discontinued.) No, acute urinary retention 09/08/232004 IUBC Tubing Disconnected This Shift? No 09/08/232004 Collection Container Standard drainage 09/08/232004 Urine Description Clear;Yellow 09/08/232004 Output (mL) 200 mL 09/09/23602 Number of days: 1 Integumentary: Integumentary WNL: X - Exceptions to WNL as documented below (09/08/232004) Skin Description: Dry;Warm (09/08/23 08) Skin Color: Flesh Tone (09/08/23 08) Skin Lesion: Ecchymosis;Other - Describe (see below) (09/08/232004) Bobby Score (auto-calculation): 15 (09/08/23 2302) Additional Assessment Information: low urine outputs * Shelly Rodrigues LPN - 09/08/2023 1:58 AM EDT Dual Licensed Skin Assessment completed by Shelly Rodrigues LPN and Amy Jacinto RN. The patient is/has a N/A Skin Breakdown (includes non blanchable erythema): Yes. Wound Type: Moisture associated skin damage/incontinent related skin damage, location groin, buttock Wound Ostomy Nurse Notified: No - wound ostomy not needed at this time Nursing interventions: moisture prevention, q2h turn and repo documented in this encounter OR Notes * OR Surgeon - Nito Meeks MD - 09/09/2023 8:52 AM EDT [facility] [address] [facility] [id number] OPERATIVE REPORT Name: Kathy Godinez Date: 09/09/2023 Time: 8:52 AM Location: OR [facility] Service: Neurosurgery Date of Operation: 09/09/2023 Pre-op Diagnosis: Arteriovenous malformation, left parietal, s/p SRS 2018. Seizures. 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 Residual main feeding arterial pedicle of A3 segment of the left HALLE to the AVM. This is measuring 4.8 mm (height) x 3 mm (width) x 3.4 mm (neck). Otherwise unremarkable diagnostic cervico-cerebral angiogram. Operation: 6-vessel cerebral angiogram Surgeon: Nito Meeks MD Assistants: None Anesthesia: General General Crate Repairer: Letha Medellin RN Pre-Op Nurse: Clare Beyer RN Nursery Technician: Maria Ines Lares RT Fire Observer - Not Scrubbed: Radha Harris TECH (If conscious sedation was employed see above Sedation RN for trained observer) Total intraservice time: * Missing case tracking time(s) * Medication given during case (for sedation) Medication Orders Placed This Encounter Medications atorvaSTATin (Lipitor) tab 20 mg Calcium Carbonate 500 mg + Vitamin D 5 mcg (200 units) per tab cloBAZam (Onfi) tab 15 mg divalproex ER (Depakote ER) extended release tab 750 mg Docusate Sodium (Colace) cap 100 mg DULoxetine (Cymbalta) DR cap 20 mg Enoxaparin (Lovenox) inj 40 mg Ferrous Sulfate (Feosol) tab 325 mg fluticasone furoate-vilanterol (BREO ellipta) 200-25 MCG/ACT inhaler 1 Puff hEParin 3000 units in 1000 mL NSS infusion Iodixanol (Visipaque 320) inj levETIRAcetam (Keppra) 250 mg in NSS 100 mL ivpb levETIRAcetam (Keppra) tab 1,500 mg levETIRAcetam (Keppra) tab 1,500 mg metoprolol succinate XL (toPROL XL) tab 25 mg multivitamin (Mvi) 1 Tablet sodium chloride 0.9 % flush/inj 3 mL traMADol (Ultram) tab 50 mg umeclidinium [place] (INCRUSE ellipta) 62.5 MCG/ACT inhaler 1 Puff Estimated Blood Loss: 10 ml. IV Fluids: 100 ml. Urine Output: N/O. Drains: None. Specimens/Disposition: None. Apparent Intraoperative Complications: None. Patient Condition: Stable. Disposition: inpatient unit. Attestation: I performed the procedure. Indication Kathy Godinez is a very pleasant 78 year old female, here today for diagnostic cervico-cerebral angiogram. In accordance with the patient's symptoms and imaging findings, i recommended that we perform a diagnostic cervico-cerebral angiogram to further evaluate and characterize for intracranial and extracranial vascular pathology. I explained that by performing this minimally-invasive diagnostic procedure our aim is to acquire a complete understanding of the cervical and cerebral angio-architecture. Risks and benefits were discussed with Kathy Godinez and the patient's family member. Risk include but are not limited to bleeding, groin hematoma, infection, stroke with transient or permanent weakness, numbness or other deficit, speech and language dysfunction, vision loss, dissection, coma,, need for more surgery or interventions, blood vessel damage and/or blockage, kidney damage from contrast dye, focal radiation reaction/hair loss. Kathy Godinez questions were answered thoroughly. Kathy Godinez expressed understanding and elected to proceed with endovascular diagnostic cervico-cerebral angiogram. The patient consentedfor the procedure. Procedure The patient was positioned on the angio table, anesthesia was induced, and the patient was prepped and draped in usual sterile fashion. The right femoral artery was localized using anatomic and fluoroscopic landmarks and a 5 Italian short sheath was placed using micropuncture kit and Seldinger technique. A 5-F diagnostic catheter was navigated over a 0.035 hydrophilic wire and the following vessels were selected. Right common carotid artery was selected. AP and lateral views of the carotid bifurcation were obtained. Right internal carotid artery was selected. AP and lateral views of the anterior intracranial circluation were obtained. Right external carotid artery was selected. AP and lateral views of the extracranial carotid circluation were obtained. Left common carotid artery was selected. AP and lateral views of the carotid bifurcation were obtained. Left internal carotid artery was selected. AP and lateral views of the anterior intracranial circluation were obtained. Left external carotid artery was selected. AP and lateral views of the extracranial carotid circluation were obtained. Left vertebral artery was selected. AP and lateral views of the posterior intracranial circluation were obtained. Right common femoral artery. AP views were obtained. At the end of the procedure, the diagnostic catheter was removed and the arteriotomy site was closed with manual pressure. LICA 3D rotational angiogram was obtained and processed at a separate workstation. Findings Right common carotid artery angiogram: The carotid bifurcation is well visualized and without significant arteriosclerotic disease or stenosis. Right internal carotid artery angiogram: The anterior intracranial circulation is unremarkable. No evidence of aneurysm, arteriovenous malformation, vasospasm, or other intracranial vascular abnormality. Right external carotid artery angiogram: The extracranial carotid circulation is unremarkable. Left common carotid artery angiogram: The carotid bifurcation is well visualized and without significant arteriosclerotic disease or stenosis. 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 Residual main feeding arterial pedicle of A3 segment of the left HALLE to the AVM. This is measuring 4.8 mm (height) x 3 mm (width) x 3.4 mm (neck). The left anterior intracranial circulation is otherwise unremarkable. No evidence of aneurysm, arteriovenous malformation, vasospasm, or other intracranial vascular abnormality. Left external carotid artery angiogram: The extracranial carotid circulation is unremarkable. Left vertebral artery angiogram: The posterior circulation is unremarkable. No evidence of aneurysm, arteriovenous malformation, vasospasm, or other intracranial vascular abnormality. Right common femoral artery: The arteriotomy is above the femoral artery bifurcation. No angiographic evidence of arterial dissection, perforation of pseudoaneurysm. 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 Residual main feeding arterial pedicle of A3 segment of the left HALLE to the AVM. This is measuring 4.8 mm (height) x 3 mm (width) x 3.4 mm (neck). Otherwise unremarkable diagnostic cervico-cerebral angiogram. Plan: Return to clinic in 1-3 weeks for discussion of further management. Nito Meeks MD Director of Open Vascular and Endovascular Neurosurgery at [facility] Seamer of Neurosurgery, [facility] [employer] [facility] documented in this encounter Miscellaneous Notes * Care Plan - Sammie Whalen RN - 09/12/2023 2:07 PM EDT Clinical Goal(s): Patient will remain free from falls (09/12/23 0700) Possible barriers to meeting goal(s)/advancing plan of care: weakness Stability of the patient: Moderately stable - low risk of patient condition declining or worsening Summary regarding today's goal(s): Met: Patient remains free from falls Recommendations: Continue fall precautions and purposeful hourly rounding * Ancillary Progress Note - Lana Adams MSW - 09/12/2023 12:10 PM EDT CARE MANAGEMENT - ADULT DISCHARGE NOTE [facility] [address] Name: Kathy Godinez Location: [facility] A479/A Date: 09/12/2023 Time: 12:10 PM The following coordination of care and discharge plan has been coordinated with the care team, patient, family and/or caregiver according to the patients needs and preferences. Discharge Discharge Second Notice Important Message from Medicare delivered: No (09/12/23 121) Was Caregiver/Family/Facility contacted regarding discharge: Yes (09/12/23 121) Discharge Transportation: Family/Friends drive (09/12/23 1211) Date of scheduled discharge transportation: 09/12/23 (09/12/23 1211) Patient declined post-hospital transition of care recommendation: N/A (09/12/23 1211) Final Discharge Plan (Complete only at time of Discharge): IP Rehab (09/12/23 1210) Destination - Admitted Since 09/08/2023 Service Provider Selected Services Address Phone Fax Patient Preferred Last Updated [facility] [address] [place] [id number] [phone] -- Lana Adams MSW 09/12/2023 1210 Narrative: Per service, patient is medically ready for discharge today. Patient to be transported by via their wheelchair van after 2pm today. Service, Isabell with [facility], bedside nurse, and family aware of plan. Minier slip with [facility]. Contact CM if discharge plan changes. * Ancillary Progress Note - Lana Adams MSW - 09/12/2023 10:44 AM EDT CARE MANAGEMENT - ADULT TRANSITION NOTE [facility] [address] Name: Kathy Godinez Location: [facility] A479/A Date: 09/12/2023 Time: 10:44 AM Risk Stratification Risk Stratification Psycho Social / Medical Concerns Identified: Adjustment to illness/injury (09/08/23 113) OBRA or OPTIONS needed for placement: Other (09/08/23 1137) Readmission Risk Score: 9.95 (09/12/23 0801) AM-PAC Score With Stairs : 9 (09/11/23 1007) Caregiver Information Patient Contacts Name Relation Home Work Mobile Davide Godinez Spouse [phone] Davide Godinez is the patient's surrogate decision maker Transition of Care Checklist Narrative: Per Isabell with [facility], they can accept patient. Auth was approved for [facility]. SW updated patient and with his information. stated he can transport patient in their personal wheelchair van to [facility]. Isabell with [facility] checking to see hen they have a bed available for patient. Service updated. SW to continue to follow. 1207: Per Isabell with [facility], they can take patient after 3pm today. Patient and updated, reported they plan leave around 2pm. SW updated service who are agreeable. Bedside nurse made aware. Anticipated Transportation at Discharge: via personal wheelchair van Patient/Family Expectations: rehab Transition Planning Transition Planning Transition Plan/Considerations: Needs uncertain at this time - Continue monitoring for needs;Discussed at Interdisciplinary Team / Boost Rounds (09/08/23 1138) Referral to Community Agency : N/A (09/08/23 1138) Additional Considerations: --- Care Management will continue to monitor and assist with discharge planning needs * Care Plan - Savi Astudillo RN - 09/12/2023 6:58 AM EDT Clinical Goal(s): Pt will remain free from falls (09/11/23 2244) Possible barriers to meeting goal(s)/advancing plan of care: impaired mobility and hospital environment Stability of the patient: Moderately stable - low risk of patient condition declining or worsening Summary regarding today's goal(s): Met: Pt did not fall Recommendations: Continue use of fall precautions and purposeful hourly rounding * Care Plan - Sammie Whalen RN - 09/11/2023 6:28 PM EDT Clinical Goal(s): Patient will remain free from falls (09/11/23 0700) Possible barriers to meeting goal(s)/advancing plan of care: weakness Stability of the patient: Moderately stable - low risk of patient condition declining or worsening Summary regarding today's goal(s): Met: Patient remains free from falls Recommendations: Continue fall precautions and purposeful hourly rounding * Ancillary Progress Note - Dian Hoskins OSA - 09/11/2023 5:03 PM EDT [facility] Authorization# [id number] was received today at 4:51 pm for IRF level of care for this patient. DENVER Adams made aware of the above authorization at 5:04 pm. * Ancillary Progress Note - Lana Adams MSW - 09/11/2023 2:01 PM EDT POST ACUTE CARE CARE MANAGEMENT [facility] [place] [address] [place] [address] Name: Kathy Godinez Location: [facility] A479/A Date: 09/11/2023 Time: 2:02 PM Post-Acute Care Patient General Information Living Quarters: House (09/08/231136) How many stories is the dwelling?: Bi-level (09/08/231136) Number of steps to enter living quarters:: ramp to enter, house is handicapped accessible () Location of bathroom(s): All floors or Single story dwelling (09/08/231136) Do you have serious difficulty walking or climbing stairs? (5 years old or older): Yes (09/08/23136) History of falling: Yes (09/11/23799) What was your living situation prior to admission/observation?: With Spouse (09/08/231136) Do you have any children, pets, or other dependents that you are currently caring for?: No (09/08/231136) AM-PAC Score With Stairs : 9 (09/11/23 1007) Post-Acute Care with AM-PAC < 17.99 Rehab diagnosis: Does not meet criteria (09/11/231401) Intermediate Facility (SNF) Guidelines For Medical Approval (must select both): Care requires observation, monitoring and evaluation of effectiveness on a daily basis;Care must be provided by an RN/SNOW PLOW TRACTOR OPERATOR and cannot be managed at home (09/11/231401) SNF guidelines for Rehab Approval (All selections required): Frequent monitoring and or revision oftreatment plan;Able to participate for at least 1 hour of therapy per day;Requries Training (selectat least one);Established rehabilitative progress;Frequent re-assessment of established rehabilitative progress;Requires intense care planning with realistic goals as identified by 1 of the following;One or more therapy modalities (PT/OT/ST) at least 5 times a week;Services required only able to beprovided in an inpatient setting (09/11/231401) Therapy Modalities: Physical Therapy;Occupational Therapy (09/11/231401) Intense Care Plan Goals: Completion of home evaluation, assistance with home modifications;Coordination of multiple community services;Family medication and/or transfer training;Assistance with application for community services (09/11/23 1402) SNF Required Training: Gait training;ADL training, with or without adaptive equipment;Transfer Training (09/11/23 1402) Approved for Intermediate Rehab: Approved for Intermediate Rehab (09/11/23 140) SW presented to bedside to discuss discharge planning. Patient and requested referral to [facility]. SW explained there is specific criteria to be met to qualify for IRF. Patient and still requested referral to [facility]. If [facility] not able to accept,patient agreeable to referral to [facility]. SW to continue to follow. Service updated. 1508: Isabell with [facility] stated she can accept patient, asked SW to submit auth. SW updated service. Auth submitted. * Care Plan - Sebastian Reyes RN - 09/11/2023 5:00 AM EDT Clinical Goal(s): pt will remain free of injury (09/10/23 1500) Possible barriers to meeting goal(s)/advancing plan of care: pain, weakness, seizure hx Stability of the patient: Moderately stable - low risk of patient condition declining or worsening Summary regarding today's goal(s): Met: Pt remains free from injury Recommendations: chair alarm, hourly rounding, call sky and belongings in reach * Care Plan - Sebastian Reyes RN - 09/10/2023 6:31 AM EDT Clinical Goal(s): pt will remain free from falls (09/09/23 1425) Possible barriers to meeting goal(s)/advancing plan of care: pain, weakness, seizure hx Stability of the patient: Moderately stable - low risk of patient condition declining or worsening Summary regarding today's goal(s): Met: Pt remains free from falls Recommendations: bed alarm, hourly rounding, call sky and belongings in reach * Progress Notes - Non-Billable - Nito Meeks MD - 09/09/2023 10:59 AM EDT Neurosurgery Staff Clinic Notes: Post-Op Check Kathy is s/p angiogram. she is doing well post-op. There are no new problems. Having some back pain as she is not used to laying flat. PHYSICAL EXAMINATION: Blood pressure 146/71, pulse 78, temperature 36 C (96.8 F), temperature source Tympanic, resp. rate 14, height 1.575 m (5' 2"), weight 93.9 kg (207 lb 0.2 oz), SpO2 98%. Neurologically stable. 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 Residual main feeding arterial pedicle of A3 segment of the left HALLE to the AVM. This is measuring 4.8 mm (height) x 3 mm (width) x 3.4 mm (neck). PLAN: Ok to have IV pain medication for several doses R groin flat x 4 hours, can prop up leg Can remove dressing tomorrow No lifting over 10 pounds x 1 week No tubs, macias, pools x 2 weeks Will follow up in clinic in 2-3 weeks Patient d/w Dr. Meeks I saw and evaluated the patient 09/09/2023. I have reviewed the trainee note and agree. * Care Plan - Sebastian Reyes RN - 09/09/2023 4:47 AM EDT Clinical Goal(s): pt will be free from injury (09/08/23 1500) Possible barriers to meeting goal(s)/advancing plan of care: pain, weakness, wheelchair bound baseline Stability of the patient: Moderately stable - low risk of patient condition declining or worsening Summary regarding today's goal(s): Met: Pt remains free from falls Recommendations: bed/chair alarm, hourly rounding, call sky and belongings in reach * Ancillary Progress Note - Lana Adams MSW - 09/08/2023 11:38 AM EDT CARE MANAGEMENT - ADULT INITIAL SCREENING [facility] [address] Name: Kathy Godinez Location: [facility] A479/A Date: 09/08/2023 Time: 11:39 AM Discussed patient with the interdisciplinary care team. This Bacteriology Technician performed a chart review and met with patient and at bedside to complete admission screen and assessed needs for transition planning. The primary care sales representative role and services were explained and emotional support was provided. Chief Complaint: No chief complaint on file. Prior Living Arrangements What was your living situation prior to admission/observation?: With Spouse (09/08/231136) Living Quarters: House (09/08/231136) Number of steps to enter living quarters:: ramp to enter, house is handicapped accessible () Do you have serious difficulty walking or climbing stairs? (5 years old or older): Yes (09/08/23136) History of falling: Yes (09/08/23136) Prior Level of Functioning Describe the patient's ability prior to admission/observation to perform ADLs: Requires assistance (09/08/231136) Requires assistance with: Dressing;Toileting;Bathing;Grooming;Eating (09/08/23136) Describe the patient's mobility status prior to admission: Patient requires assistance with ambulation (09/08/231136) Patient uses assistive device: Yes (09/08/231136) If yes, choose:: Other (electric wheelchair) (09/08/231136) Caregiver Information Patient Contacts Name Relation Home Work Mobile Davide Godinez Spouse [phone] VinnyDavide burnham Brandee is the patient's surrogate decision maker Risk Stratification/Psychosocial/Care Gaps Risk Stratification Psycho Social / Medical Concerns Identified: Adjustment to illness/injury (09/08/231136) OBRA or OPTIONS needed for placement: Other (09/08/231136) Readmission Risk Score: 8.18 (09/08/23 0801) AM-PAC Score With Stairs : 12 (09/08/23 0450) Prior to Admission Services Services Prior to Admission [employer] Services (Services received within the last 30 days with exception, Psych within last two years): Durable Medical Equipment (09/08/231136) [employer]ER Durable Medical Equipment (DME) in home: Bedside commode;Oxygen (name) - Comment;Wheelchair motorized (09/08/23 1146) DME Name: [facility] (09/08/231136) [place] Dept[employer] of Aging (PDA) Waiver Program: N/A (09/08/231136) [employer]ENEER S[employer]ICER Transportation (Services received within the last 30 days): Family/Friends Personal Vehicle (has wheelchair van) (09/08/231136) Outpatient Bacteriology Technician: Patient Care Team: Karena Curiel RN as Animal Skinner (Registered Nurse) Patient/Family Expectations: return home Comments: SW met with patient and at bedside to complete initial assessment. Patient lives with in a bi-level, handicapped accessible house with ramps and stair lifts. Patient needs assistance with all ADLs, provides patient with assistance. Patient stated she does not qualify for Rapport Services. Patient has an electric wheelchair, stair lifts, ramps, oxygen through [employer], and a bedside commode. Patient is connected with [address]. Patient has a wheelchair van that uses to transport her to her appointments. Patient plans to return home with her at time of discharge. can provide transport. No CM needs identified at this time. SW to continue to follow. For further screening information, please refer to the Care Management flow document. * Care Plan - Hannah Wood RN - 09/08/2023 7:24 AM EDT Clinical Goal(s): Pt will remain free from falls (09/08/23 0155) Possible barriers to meeting goal(s)/advancing plan of care: weakness Stability of the patient: Moderately stable - low risk of patient condition declining or worsening Summary regarding today's goal(s): Met: Pt remained free from falls Recommendations: continue fall precautions and purposeful hourly rounding * Communication - Salvatore Schmitz DO - 09/08/2023 5:41 AM EDT EEG Baseline note: Initial EEG starting at 09/08/23, 0405 reviewed until 05:40 Background: 10Hz PDR, intermittent focal slowing of the left temporal region Interictal/Ictal findings: neither Seizures nor Epileptiform discharges Diagnostic Significance: Focal ENVIRONMENTAL COORDINATOR dysfunction of the left temporal region Full daily report to follow after 4 am. Please page the EEG reader recreational programs director at the [facility] Epilepsy/Adult EEG provider [facility] role with any questions or concerns. * Care Plan - Amy Jacinto RN - 09/08/2023 2:03 AM EDT Clinical Goal(s): Pt will remain free from falls (09/08/23 0155) Possible barriers to meeting goal(s)/advancing plan of care: weakness Stability of the patient: Moderately stable - low risk of patient condition declining or worsening Summary regarding today's goal(s): Met: pt remained free from falls Recommendations: fall precautions, hourly rounding, pain mgmt documented in this encounter Plan of Treatment Upcoming Encounters Date Type Department Care Team (Late st Contact Info) Description 09/13/2023 5:40 AM EDT Laboratory Lab Mobile Phlebotomy [facility] [address] [facility], [place] [address] [address] [address] Arrived 09/18/2023 4:20 PM EDT Office Visit [facility] [address], [place] [facility] [phone] Tanesha Ponce DO [facility] [address] 10/03/2023 9:00 AM EDT Office Visit Gustavo, Dina [address] [place] [address] Nito Meeks MD [address] [place] [address] 10/10/2023 2:00 PM EDT Office Visit Otolaryngology [facility] [address] [facility] [place] [address] Nish Glynn, DO [facility] [address] 10/13/2023 11:20 AM EDT Office Visit Family Practice [address] [facility] [address] [place] [address] Tanesha Ponce, DO [address] [place] [address] 10/19/2023 10:40 AM EDT Office Visit Podiatry [facility] 132 [facility] [place] [address] Laura Owen, WILMAR 132 [place] [address] 03/12/2024 1:00 PM EDT Nurse Only Ancillary [address] [place] [address] College, Nurse Annual Wellness Visit [address] [place] [address] Health Maintenance Due Date Last Done Comments DXA Scan 1945 Alpha-1 Antitrypsin 1963 O2 ASSESSMENT COMPLETED IN PAST YEAR FOR COPD 09/08/2024 09/09/2023 DTaP,Tdap,and Td Vaccines (2 - Td or Tdap) 02/02/2028 02/01/2018 Pneumococcal Vaccine: 65+ Years Completed 05/04/2016, 05/10/2015, 04/22/2015, Additional history exists LUNG CANCER SCREENING - USE SMARTSET 38542 Completed 08/21/2020, 01/29/2020, 07/18/2019, Additional history exists Zoster Vaccines Completed 12/07/2021, 0410/2021, 04/12/2012 Influenza Vaccine (FLU shot) Completed 05/2023, [...] Not on filedocumented as of this encounter Procedures Procedure Name Priority Date/Time Associated Diagnosis Comments BASIC METABOLIC PANEL Routine 09/12/2023 7:44 AM EDT CBC Routine 09/12/2023 7:44 AM EDT BASIC METABOLIC PANEL Routine 09/11/2023 5:51 AM EDT CBC Routine 09/11/2023 5:51 AM EDT BASIC METABOLIC PANEL Routine 09/10/2023 8:08 AM EDT CBC Routine 09/10/2023 8:07 AM EDT URINALYSIS, REFLEX TO CULTURE Routine 09/10/2023 4:58 AM EDT URINALYSIS, REFLEX TO CULTURE (CUP ONLY) Routine 09/10/2023 4:58 AM EDT URINALYSIS, REFLEX TO CULTURE (NOT FOR NEUTROPENIC PATIENTS) Routine 09/10/2023 4:58 AM EDT CULTURE, URINE, QUANTITATIVE Routine 09/10/2023 4:58 AM EDT NEURO IR IMAGING Routine 09/09/2023 9:22 AM EDT VERTEBRAL ARTERY CATHETER PLACEMENT 09/09/2023 7:05 AM EDT AVM (arteriovenous malformation) CAROTID (INTERNAL) ARTERY CATHETHER PLACEMENT 09/09/2023 7:05 AM EDT AVM (arteriovenous malformation) BASIC METABOLIC PANEL Routine 09/09/2023 6:20 AM EDT CBC Routine 09/09/2023 6:20 AM EDT EXTRA URINE Routine 09/08/2023 2:49 AM EDT EXTRA TUBES Routine 09/08/2023 2:49 AM EDT CULTURE, URINE, QUANTITATIVE Routine 09/08/2023 2:49 AM EDT VALPROIC ACID, TOTAL AND FREE Routine 09/08/2023 2:06 AM EDT LEVETIRACETAM LEVEL Routine 09/08/2023 2 :06 AM EDT BASIC METABOLIC PANEL Routine 09/08/2023 2:06 AM EDT LACTATE Routine 09/08/2023 2:06 AM EDT CBC Routine 09/08/2023 2:06 AM EDT SARS-COV-2 (COVID-19), NAAT STAT 09/08/2023 1:33 AM EDT EEG RESIDENTIAL MONITORING Routine 09/08/2023 documented in this encounter Results * CBC (09/12/2023 7:44 AM EDT) WBC 5.88 4.00 - 10.80 K/uL 09/12/2023 8:02 AM EDT LABORATORY [facility] RBC 3.58 3.85 - 5.15 M/uL 09/12/2023 8:02 AM EDT LABORATORY [facility] HGB 12.1 12.0 - 15.3 g/dL 09/12/2023 8:02 AM EDT LABORATORY [facility] HCT 37.8 36.0 - 45.2 % 09/12/2023 8:02 AM EDT LABORATORY [facility] MCV 105.6 81.5 - 97.5 fL 09/12/2023 8:02 AM EDT LABORATORY [facility] MCH 33.8 27.0 - 34.0 pg 09/12/2023 8:02 AM EDT LABORATORY [facility] MCHC 32.0 32.0 - 36.0 g/dL 09/12/2023 8:02 AM EDT LABORATORY [facility] RDW 12.7 11.5 - 15.5 % 09/12/2023 8:02 AM EDT LABORATORY [facility] PLT 208 140 - 400 K/uL 09/12/2023 8:02 AM EDT LABORATORY [facility] MPV 8.8 6.6 - 11.1 fL 09/12/2023 8:02 AM EDT LABORATORY [facility] nRBCs 0 <=0 /100 WBCs 09/12/2023 8:02 AM EDT LABORATORY [facility] Blood Venous blood specimen / Unknown Venipuncture / Unknown 09/12/2023 7:44 AM EDT 09/12/2023 7:53 AM EDT Jorge Luis Oneil DO LAB BLOOD ORDERABLES Performing Organization Address City/State/[facility] Co de Phone Number LABORATORY [facility] [address] [place] [address] * (ABNORMAL) BASIC METABOLIC PANEL (09/12/2023 7:44 AM EDT) BUN 21(H) 6 - 20 mg/dL 09/12/2023 8:21 AM EDT LABORATORY [facility] Creatinine 0.7 0.5 - 1.0 mg/dL 09/12/2023 8:21 AM EDT LABORATORY [facility] Estimated Glomerular Filtration Rate 86 >=60 mL/min 09/12/2023 8:21 AM EDT LABORATORY [facility] Comment:eGFR is calculated b ased on the CKD-EPI 2020 equation Sodium 140 135 - 146 mmol/L 09/12/2023 8:21 AM EDT LABORATORY [facility] Potassium 4.4 3.5 - 5.1 mmol/L 09/12/2023 8:21 AM EDT LABORATORY [facility] Chloride 102 98 - 107 mmol/L 09/12/2023 8:21 AM EDT LABORATORY [facility] CO2 31 22 - 32 mmol/L 09/12/2023 8:21 AM EDT LABORATORY [facility] Anion Gap 7 7 - 15 mmol/L 09/12/2023 8:21 AM EDT LABORATORY [facility] Glucose 91 70 - 120 mg/dL 09/12/2023 8:21 AM EDT LABORATORY [facility] Calcium 9.7 8.4 - 10.2 mg/dL 09/12/2023 8:21 AM EDT LABORATORY [facility] Blood Venous blood specimen / Unknown Venipuncture / Unknown 09/12/2023 7:44 AM EDT 09/12/2023 7:53 AM EDT Jorge Luis Oneil DO LAB BLOOD ORDERABLES LABORATORY [facility] [address] [place] [address] * (ABNORMAL) CBC (09/11/2023 5:51 AM EDT) WBC 5.54 4.00 - 10.80 K/uL 09/11/2023 6:37 AM EDT LABORATORY [facility] RBC 3.34 3.85 - 5.15 M/uL 09/11/2023 6:37 AM EDT LABORATORY [facility] HGB 11.4(L) 12.0 - 15.3 g/dL 09/11/2023 6:37 AM EDT LABORATORY [facility] HCT 35.1(L) 36.0 - 45.2 % 09/11/2023 6:37 AM EDT LABORATORY [facility] MCV 105.1 81.5 - 97.5 fL 09/11/2023 6:37 AM EDT LABORATORY [facility] MCH 34.1 27.0 - 34.0 pg 09/11/2023 6:37 AM EDT LABORATORY [facility] MCHC 32.5 32.0 - 36.0 g/dL 09/11/2023 6:37 AM EDT LABORATORY [facility] RDW 12.7 11.5 - 15.5 % 09/11/2023 6:37 AM EDT LABORATORY [facility] PLT 194 140 - 400 K/uL 09/11/2023 6:37 AM EDT LABORATORY [facility] MPV 9.1 6.6 - 11.1 fL 09/11/2023 6:37 AM EDT LABORATORY [facility] nRBCs 0 <=0 /100 WBCs 09/11/2023 6:37 AM EDT LABORATORY [facility] Blood Venous blood specimen / Unknown Venipuncture / Unknown 09/11/2023 5:51 AM EDT 09/11/2023 6:23 AM EDT Jorge Luis Oneil DO LAB BLOOD ORDERABLES LABORATORY C [address] [place] [address] * BASIC METABOLIC PANEL (09/11/2023 5:51 AM EDT) BUN 19 6 - 20 mg/dL 09/11/2023 6:54 AM EDT LABORATORY [facility] Creatinine 0.7 0.5 - 1.0 mg/dL 09/11/2023 6:54 AM EDT LABORATORY [facility] Estimated Glomerular Filtration Rate 86 >=60 mL/min 09/11/2023 6:54 AM EDT LABORATORY [facility] Comment:eGFR is calculated b ased on the CKD-EPI 2020 equation Sodium 140 135 - 146 mmol/L 09/11/2023 6:54 AM EDT LABORATORY [facility] Potassium 4.3 3.5 - 5.1 mmol/L 09/11/2023 6:54 AM EDT LABORATORY [facility] Chloride 103 98 - 107 mmol/L 09/11/2023 6:54 AM EDT LABORATORY [facility] CO2 28 22 - 32 mmol/L 09/11/2023 6:54 AM EDT LABORATORY [facility] Anion Gap 9 7 - 15 mmol/L 09/11/2023 6:54 AM EDT LABORATORY [facility] Glucose 86 70 - 120 mg/dL 09/11/2023 6:54 AM EDT LABORATORY [facility] Calcium 9.4 8.4 - 10.2 mg/dL 09/11/2023 6:54 AM EDT LABORATORY [facility] Blood Venous blood specimen / Unknown Venipuncture / Unknown 09/11/2023 5:51 AM EDT 09/11/2023 6:23 AM EDT Jorge Luis Oneil DO LAB BLOOD ORDERABLES LABORATORY [facility] [address] [place] [address] * (ABNORMAL) BASIC METABOLIC PANEL (09/10/2023 8:08 AM EDT) BUN 23(H) 6 - 20 mg/dL 09/10/2023 8:44 AM EDT LABORATORY [facility] Creatinine 0.8 0.5 - 1.0 mg/dL 09/10/2023 8:44 AM EDT LABORATORY [facility] Estimated Glomerular Filtration Rate 77 >=60 mL/min 09/10/2023 8:44 AM EDT LABORATORY [facility] Comment:eGFR is calculated b ased on the CKD-EPI 2020 equation Sodium 142 135 - 146 mmol/L 09/10/2023 8:44 AM EDT LABORATORY [facility] Potassium 4.9 3.5 - 5.1 mmol/L 09/10/2023 8:44 AM EDT LABORATORY [facility] Chloride 105 98 - 107 mmol/L 09/10/2023 8:44 AM EDT LABORATORY [facility] CO2 30 22 - 32 mmol/L 09/10/2023 8:44 AM EDT LABORATORY [facility] Anion Gap 7 7 - 15 mmol/L 09/10/2023 8:44 AM EDT LABORATORY [facility] Glucose 95 70 - 120 mg/dL 09/10/2023 8:44 AM EDT LABORATORY [facility] Calcium 9.2 8.4 - 10.2 mg/dL 09/10/2023 8:44 AM EDT LABORATORY C Blood Venous blood specimen / Unknown Venipuncture / Unknown 09/10/2023 8:08 AM EDT 09/10/2023 8:18 AM EDT Jorge Luis Oneil DO LAB BLOOD ORDERABLES LABORATORY [facility] [address] [place] [address] * (ABNORMAL) CBC (09/10/2023 8:07 AM EDT) WBC 7.23 4.00 - 10.80 K/uL 09/10/2023 8:25 AM EDT LABORATORY [facility] RBC 3.46 3.85 - 5.15 M/uL 09/10/2023 8:25 AM EDT LABORATORY [facility] HGB 11.7(L) 12.0 - 15.3 g/dL 09/10/2023 8:25 AM EDT LABORATORY [facility] HCT 36.4 36.0 - 45.2 % 09/10/2023 8:25 AM EDT LABORATORY [facility] MCV 105.2 81.5 - 97.5 fL 09/10/2023 8:25 AM EDT LABORATORY [facility] MCH 33.8 27.0 - 34.0 pg 09/10/2023 8:25 AM EDT LABORATORY [facility] MCHC 32.1 32.0 - 36.0 g/dL 09/10/2023 8:25 AM EDT LABORATORY [facility] RDW 13.1 11.5 - 15.5 % 09/10/2023 8:25 AM EDT LABORATORY [facility] PLT 186 140 - 400 K/uL 09/10/2023 8:25 AM EDT LABORATORY [facility] MPV 8.9 6.6 - 11.1 fL 09/10/2023 8:25 AM EDT LABORATORY [facility] nRBCs 0 <=0 /100 WBCs 09/10/2023 8:25 AM EDT LABORATORY [facility] Blood Venous blood specimen / Unknown Venipuncture / Unknown 09/10/2023 8:07 AM EDT 09/10/2023 8:18 AM EDT Jorge Luis Oneli DO LAB BLOOD ORDERABLES LABORATORY [facility] [address] [place] [address] * (ABNORMAL) CULTURE, URINE, QUANTITATIVE (09/10/2023 4:58 AM EDT) Culture Growth >100,000 colonies/mL Proteus mirabilis(A ) MICROBROTH DILUTIONS 09/12/2023 7:04 AM EDT LABORATORY [facility] Urine Urine specimen / Unknown Non-blood Collection / Unknown 09/10/2023 4:58 AM EDT 09/10/2023 5:12 AM EDT Narrative LABORATORY [facility] - 09/12/2023 7:04 AM EDT <10,000 colonies/ml mixed normal saba Organism Antibiotic Method Susceptibility Proteus mirabilis Ampicillin MICROBROTH DILUTIONS <=2: Susceptible Proteus mirabilis Cefazolin MICROBROTH DILUTIONS <=4: Susceptible Proteus mirabilis Cefepime MICROBROTH DILUTIONS <=1: Susceptible Proteus mirabilis Ceftriaxone MICROBROTH DILUTIONS <=1: Susceptible Proteus mirabilis Ciprofloxacin MICROBROTH DILUTIONS <=0.25: Susceptible Comment:Due to bruna us side effects, the FDA has advised against using Ciprofloxacin to treat uncomplicated UTIs and respiratory tract infections unless there are no alternative treatment options. Proteus mirabilis Gentamicin MICROBROTH DILUTIONS <=1: Susceptible Proteus mirabilis Piperacillin Tazobactam MICROBROTH D ILUTIONS <=4: Susceptible Proteus mirabilis Trimeth/Sulfamethoxazole MICROBROTH DILUTIONS <=20: Susceptible Jorge Luis Oneil DO LAB MICRO - GENERAL ORDERABLES LABORATORY [facility] [address] [place] [address] * (ABNORMAL) URINALYSIS, REFLEX TO CULTURE (09/10/2023 4:58 AM EDT) Color, Urine Yellow Colorless, Light Yellow, Yellow, Dark Yellow 09/10/2023 5:21 AM EDT LABORATORY [facility] Clarity, Urine Slightly Cloudy(A) Clear 09/10/2023 5:21 AM EDT LABORATORY [facility] Glucose, Urine Negative Negative mg/dL 09/10/2023 5:21 AM EDT LABORATORY [facility] Bilirubin, Urine Negative Negative 09/10/2023 5:21 AM EDT LABORATORY [facility] Ketone, Urine 15(A) Negative mg/dL 09/10/2023 5:21 AM EDT LABORATORY [facility] Specific [place], Urine >1.050(H) 1.003 - 1.030 09/10/2023 5:21 AM EDT LABORATORY [facility] Blood, Urine Moderate(A) Negative 09/10/2023 5:21 AM EDT LABORATORY [facility] pH, Urine 6.0 5.0 - 7.5 Units 09/10/2023 5:21 AM EDT LABORATORY [facility] Protein, Urine 30(A) Negative mg/dL 09/10/2023 5:21 AM EDT LABORATORY [facility] Urobilinogen, Urine Normal Normal mg/dL 09/10/2023 5:21 AM EDT LABORATORY [facility] Nitrite, Urine Negative Negative 09/10/2023 5:21 AM EDT LABORATORY [facility] Esterase, Urine Large(A) Negative 09/10/2023 5:21 AM EDT LABORATORY [facility] RBC, Urine 20-29(A) 0 - 2 /HPF 09/10/2023 5:21 AM EDT LABORATORY [facility] WBC, Urine 50+(A) 0 - 2 /HPF 09/10/2023 5:21 AM EDT LABORATORY [facility] Bacteria, Urine 26-50(A) 0 - 25 /HPF 09/10/2023 5:21 AM EDT LABORATORY [facility] Squamous Epithelial Cells, Urine Many(A) None /HPF 09/10/2023 5:21 AM EDT LABORATORY [facility] Culture, Urine 09/10/2023 5:21 AM EDT LABORATORY [facility] Comment:Quantitative urine c ulture to be performed Urine Urine specimen / Unknown Non-blood Collection / Unknown 09/10/2023 4:58 AM EDT 09/10/2023 5:12 AM EDT Jorge Luis Oneil DO LAB URINE ORDERABLES LABORATORY [facility] [address] [place] [address] * URINALYSIS, REFLEX TO CULTURE (CUP ONLY) (09/10/2023 4:58 AM EDT) Urinalysis, Reflex to Culture Specimen Specimen collected and received 09/10/2023 7:01 AM EDT LABORATORY [facility] Urine Urine specimen / Unknown Non-blood Collection / Unknown 09/10/2023 4:58 AM EDT 09/10/2023 5:12 AM EDT Jorge Luis Oneil DO LAB URINE ORDERABLES LABORATORY [facility] [address] [place] [address] * NEURO IR IMAGING (09/09/2023 9:22 AM EDT) Narrative Scheduling, Silent - 09/09/2023 9:23 AM EDT This procedure will not be read by a Radiologist. Please see operative note. Nito Meeks MD RAD SPECIAL PROCEDUR ES * CBC (09/09/2023 6:20 AM EDT) WBC 7.47 4.00 - 10.80 K/uL 09/09/2023 6:36 AM EDT LABORATORY [facility] RBC 3.83 3.85 - 5.15 M/uL 09/09/2023 6:36 AM EDT LABORATORY [facility] HGB 13.0 12.0 - 15.3 g/dL 09/09/2023 6:36 AM EDT LABORATORY [facility] HCT 39.4 36.0 - 45.2 % 09/09/2023 6:36 AM EDT LABORATORY [facility] MCV 102.9 81.5 - 97.5 fL 09/09/2023 6:36 AM EDT LABORATORY [facility] MCH 33.9 27.0 - 34.0 pg 09/09/2023 6:36 AM EDT LABORATORY [facility] MCHC 33.0 32.0 - 36.0 g/dL 09/09/2023 6:36 AM EDT LABORATORY [facility] RDW 13.0 11.5 - 15.5 % 09/09/2023 6:36 AM EDT LABORATORY [facility] PLT 181 140 - 400 K/uL 09/09/2023 6:36 AM EDT LABORATORY [facility] MPV 8.9 6.6 - 11.1 fL 09/09/2023 6:36 AM EDT LABORATORY [facility] nRBCs 0 <=0 /100 WBCs 09/09/2023 6:36 AM EDT LABORATORY [facility] Blood Venous blood specimen / Unknown Venipuncture / Unknown 09/09/2023 6:20 AM EDT 09/09/2023 6:25 AM EDT Jorge Luis Oneil DO LAB BLOOD ORDERABLES LABORATORY [facility] [address] [place] [address] * (ABNORMAL) BASIC METABOLIC PANEL (09/09/2023 6:20 AM EDT) BUN 23(H) 6 - 20 mg/dL 09/09/2023 6:57 AM EDT LABORATORY [facility] Creatinine 0.7 0.5 - 1.0 mg/dL 09/09/2023 6:57 AM EDT LABORATORY [facility] Estimated Glomerular Filtration Rate 85 >=60 mL/min 09/09/2023 6:57 AM EDT LABORATORY [facility] Comment:eGFR is calculated b ased on the CKD-EPI 2020 equation Sodium 141 135 - 146 mmol/L 09/09/2023 6:57 AM EDT LABORATORY [facility] Potassium 4.5 3.5 - 5.1 mmol/L 09/09/2023 6:57 AM EDT LABORATORY [facility] Chloride 102 98 - 107 mmol/L 09/09/2023 6:57 AM EDT LABORATORY [facility] CO2 28 22 - 32 mmol/L 09/09/2023 6:57 AM EDT LABORATORY [facility] Anion Gap 11 7 - 15 mmol/L 09/09/2023 6:57 AM EDT LABORATORY [facility] Glucose 101 70 - 120 mg/dL 09/09/2023 6:57 AM EDT LABORATORY [facility] Calcium 9.9 8.4 - 10.2 mg/dL 09/09/2023 6:57 AM EDT LABORATORY C Blood Venous blood specimen / Unknown Venipuncture / Unknown 09/09/2023 6:20 AM EDT 09/09/2023 6:25 AM EDT Jorge Luis Oneil DO LAB BLOOD ORDERABLES LABORATORY [facility] [address] [place] [address] * EXTRA URINE (09/08/2023 2:49 AM EDT) Urine Urine specimen / Unknown 09/08/2023 2:49 AM EDT 09/08/2023 2:57 AM EDT Suzy Garcia MD LAB URINE ORDERABLES Performing Organization Address [facility] de Phone Number LABORATORY [facility] [address] [place] [address] * CULTURE, URINE, QUANTITATIVE (09/08/2023 2:49 AM EDT) Pathologist [facility] Culture Growth No significant growth 09/09/2023 8:50 AM EDT LABORATORY [facility] Urine Urine specimen / Unknown Non-blood Collection / Unknown 09/08/2023 2:49 AM EDT 09/08/2023 2:56 AM EDT Jorge Luis Oneil DO LAB MICRO - GENERAL ORDERABLES Performing Organization Address [facility] de Phone Number LABORATORY [facility] [address] [place] [address] * LACTATE (09/08/2023 2:06 AM EDT) Lactate 0.9 0.4 - 2.0 mmol/L 09/08/2023 2:33 AM EDT LABORATORY [facility] Blood Venous blood specimen / Unknown Venipuncture / Unknown 09/08/2023 2:06 AM EDT 09/08/2023 2:12 AM EDT Jorge Luis Oneil DO LAB BLOOD ORDERABLES Performing Organization Address [facility] de Phone Number LABORATORY [place] [address] [place] [address] * VALPROIC ACID, TOTAL AND FREE (09/08/2023 2:06 AM EDT) Valproic Acid, Free 11.5 4.8 - 17.3 mg/L 09/11/2023 10:32 PM EDT [facility] Comment: Note: Non-linear drug binding properties result in the fraction of Free Valproic Acid increasing as total drug increases. The free fraction may range from 5% to 25% for the total drug range of 30-160 mg/L. Valproic Acid 61.2 50.0 - 100.0 mg/L 09/11/2023 10:32 PM EDT [facility] Comment: Test Performed at: [employer] [facility] [address] [place], [place] Kurt Saxena M.D., Ph.D.,Director of Laboratories Blood Venous blood specimen / Unknown Venipuncture / Unknown 09/08/2023 2:06 AM EDT 09/08/2023 2:12 AM EDT Jorge Luis Oneil LAB BLOOD ORDERABLES Performing Organization Address [facility]/ZIP Co de Phone Number [facility] [phone] [place] [address] * LEVETIRACETAM LEVEL (09/08/2023 2:06 AM EDT) Levetiracetam >60 3 - 63 ug/mL 09/08/2023 10:54 AM EDT LABORATORY [facility] Blood Venous blood specimen / Unknown Venipuncture / Unknown 09/08/2023 2:06 AM EDT 09/08/2023 2:12 AM EDT Jorge Luis Oneil DO LAB BLOOD ORDERABLES LABORATORY [facility] [address] [place] [address] * BASIC METABOLIC PANEL (09/08/2023 2:06 AM EDT) BUN 19 6 - 20 mg/dL 09/08/2023 2:35 AM EDT LABORATORY [facility] Creatinine 0.6 0.5 - 1.0 mg/dL 09/08/2023 2:35 AM EDT LABORATORY GM Estimated Glomerular Filtration Rate >90 >=60 mL/min 09/08/2023 2:35 AM EDT LABORATORY [facility] Comment:eGFR is calculated b ased on the CKD-EPI 2020 equation Sodium 141 135 - 146 mmol/L 09/08/2023 2:35 AM EDT LABORATORY [facility] Potassium 4.2 3.5 - 5.1 mmol/L 09/08/2023 2:35 AM EDT LABORATORY [facility] Chloride 105 98 - 107 mmol/L 09/08/2023 2:35 AM EDT LABORATORY [facility] CO2 25 22 - 32 mmol/L 09/08/2023 2:35 AM EDT LABORATORY [facility] Anion Gap 11 7 - 15 mmol/L 09/08/2023 2:35 AM EDT LABORATORY [facility] Glucose 103 70 - 120 mg/dL 09/08/2023 2:35 AM EDT LABORATORY [facility] Calcium 9.4 8.4 - 10.2 mg/dL 09/08/2023 2:35 AM EDT LABORATORY [facility] Blood Venous blood specimen / Unknown Venipuncture / Unknown 09/08/2023 2:06 AM EDT 09/08/2023 2:12 AM EDT Jorge Luis Oneil DO LAB BLOOD ORDERABLES LAB[facility]ATORY [facility] [address] [place] [address] * CBC (09/08/2023 2:06 AM EDT) WBC 7.80 4.00 - 10.80 K/uL 09/08/2023 2:26 AM EDT LAB[facility] RBC 3.81 3.85 - 5.15 M/uL 09/08/2023 2:26 AM EDT [facility] HGB 12.9 12.0 - 15.3 g/dL 09/08/2023 2:26 AM EDT [facility] HCT 39.0 36.0 - 45.2 % 09/08/2023 2:26 AM EDT LAB[facility] MCV 102.4 81.5 - 97.5 fL 09/08/2023 2:26 AM EDT LAB[facility] MCH 33.9 27.0 - 34.0 pg 09/08/2023 2:26 AM EDT LAB[facility] MCHC 33.1 32.0 - 36.0 g/dL 09/08/2023 2:26 AM EDT LABORATORY [facility] RDW 12.7 11.5 - 15.5 % 09/08/2023 2:26 AM EDT LABORATORY [facility] PLT 189 140 - 400 K/uL 09/08/2023 2:26 AM EDT LABORATORY [facility] MPV 8.7 6.6 - 11.1 fL 09/08/2023 2:26 AM EDT LABORATORY [facility] nRBCs 0 <=0 /100 WBCs 09/08/2023 2:26 AM EDT LABORATORY [facility] Blood Venous blood specimen / Unknown Venipuncture / Unknown 09/08/2023 2:06 AM EDT 09/08/2023 2:12 AM EDT Jorge Luis Oneil DO LAB BLOOD ORDERABLES LABORATORY [facility] [address] [place] [address] * SARS-COV-2 (COVID-19), NAAT (09/08/2023 1:33 AM EDT) Pathologist [facility] [place] SARS-CoV-2 (COVID-19) Result Negative Negative 09/08/2023 3:15 AM EDT LABORATORY [facility] Comment: 2019 Novel Coronavirus not detected. This express test was developed and its performance characteristics determined by [facility]. It has not been cleared or approved by the U.S. Food and Drug Administration (FDA). FDA does not require this test to go thru premarket FDA review. This test is used for clinical purposes. It should not be regarded as investigational or for research. This laboratory is certified under the Clinical Laboratory Improvement Amendments (CLIA) as qualified to perform high complexity clinical laboratory testing. This test is a nucleic acid amplification test (NAAT), a reverse transcriptase polymerase chain reaction (RT-PCR) test, or a Centers for Disease Control- acceptable equivalent. The test is performed in a high complexity Clinical Laboratory Improvement Amendments-(CLIA) certified laboratory. The test is acceptable for SARS-CoV-2 diagnosis, surveillance, and travel within the [place] and to most countries. Please check with local testing authorities about requirements before travel. The validation of bronchial specimens, tracheal aspirates, and sputum for this assay was developed and performance characteristics determined by [facility]. The validation of alternate specimen types has not been cleared or approved by the U.S. Food and Drug Administration (FDA). It has been determined that such clearance is not necessary. Upper Respiratory Mid-turbinate nasal swab / Unknown Non-blood Collection / Unknown 09/08/2023 1:33 AM EDT 09/08/2023 2:41 AM EDT Jorge Luis Oneil DO LAB MICRO - GENERAL ORDERABLES LABORATORY [facility] [address] [place] [address] * (ABNORMAL) EEG RESIDENTIAL MONITORING (09/08/2023) Narrative Merari Matthews TECH - 09/08/2023 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 Given a dose of ativan at home by , then prior to next dose of ativan started staring off into space. At [facility] noted to have aphasia and was stroke alerted. NIHSS 19 for questions, commands, gaze palsy, RUE, RLE, LLE, ataxia, sensory, aphasia, and dysarthria. Per recommendations from [place] telestroke following normal CTA, loaded with Keppra at 1100hrs on 09/06 and transferred for LTM EEG. DATE/TIME STARTED:09/07 @ 5 DATE/TIME ENDED:09/10@ 0834 DAY: 1 DATE: 09/07-09/08 TIME: [id number] PB/EVENTS: COMMENTS: intermittent LT focal slow, 10Hz PDR/cjm Abnormal: This EEG is abnormal due to the presence of: 1. Approximately 1-3 Left parietal electrographic seizures per hour, last at 0350 on 09/09/2023 2. Frequent left temporal slowing, indicative of focal dysfunction in this region 3. Mild generalized slowing, indicative of nonspecific global dysfunction REPORTING PHYS:arc BILLING: hu charged and 24 hrs on 09/08 DAY: 2 DATE:09/08- 09/09 TIME: [id number] PB/EVENTS: COMMENTS: Abnormal: This EEG is abnormal due to the presence of: 1. 9 Left parietal electrographic seizures, last at 0304 on 09/10/2023 2. Rare BIRDs in the left parietal region, indicative of epileptogenic potential 3. Frequent left temporal slowing, indicative of focal dysfunction in this region 4. Mild generalized slowing, indicative of nonspecific global dysfunction REPORTING PHYS:arc BILLIN hrs on 09/09 DAY: 3 DATE: 09/09-09/10 TIME: [id number] PB/EVENTS: COMMENTS: Abnormal: This EEG is abnormal due to the presence of: 1. No seizures this epoch, last at 0304 on 09/10/2023 2. Frequent left temporal slowing, indicative of focal dysfunction in this region 3. Mild generalized slowing, indicative of nonspecific global dysfunction REPORTING PHYS:arc BILLIN hrs on 09/10 DAY: 4 DATE: 09/10 TIME: [id number] PB/EVENTS: COMMENTS: Generalized slowing,left tp slowing/cf REPORTING PHYS: ac-Summary of Findings: Abnormal: This EEG is abnormal due to the presence of: 1. No seizures this epoch, last at 0304 on 09/10/2023 2. Frequent left temporal slowing, indicative of focal dysfunction in this region 3. 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 Seizure-like activity (HCC) [R56.9] Other convulsions Personal history of nicotine dependence [Z87.891] Personal history of tobacco use, presenting hazards to health COPD, group B, by GOLD 2017 classification (HCC) 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 Given 09/10/2023 11:09 AM EDT 650 mg Acetaminophen (Tylenol) tab 650 mg 650 mg, Oral, Q6H PRN Headache, Starting on Mon09/10/23 at 1745, Until Mon09/12/23 at 1807, Maximum of 4 grams (4000 mg) per day. Given 09/12/2023 10:11 AM EDT 650 mg Given 09/11/2023 4:40 PM EDT 650 mg Given 09/11/2023 6:01 AM EDT 650 mg atorvaSTATin (Lipitor) tab 20 mg 20 mg, Oral, Daily(AM), First dose on Mon09/08/23 at 0900, Until Discontinued Given 09/12/2023 8:33 AM EDT 20 mg Given 09/11/2023 8:53 AM EDT 20 mg Given 09/10/2023 8:39 AM EDT 20 mg Calcium Carbonate 500 mg + Vitamin D 5 mcg (200 units) per tab 1 Tablet, Oral, WITH MEALS, First dose on Mon09/08/23 at 0800, Until Discontinued, Vitamin D 200 units = 5 mcg Given 09/12/2023 11:06 AM EDT 1 Tablet Given 09/12/2023 8:33 AM EDT 1 Tablet Given 09/11/2023 4:40 PM EDT 1 Tablet cefTRIAXone in dextrose (Rocephin) IVPB 1 g IV Piggyback, 1 g, Q24H, 3 doses, First dose on Mon09/12/23 at 1230, Last dose on Mon09/14/23 at 1230, Administer over 30 Minutes New Bag 09/12/2023 12:32 PM EDT 1 g 100 mL/hr cloBAZam (Onfi) tab 15 mg 15 mg, Oral, Daily(AM), First dose on Mon09/08/23 at 0845, Until Discontinued Given 09/12/2023 8:33 AM EDT 15 mg Given 09/11/2023 8:53 AM EDT 15 mg Given 09/10/2023 8:41 AM EDT 15 mg divalproex ER (Depakote ER) extended release tab 750 mg 750 mg, Oral, BID (.AM/PM), First dose on Mon09/08/23 at 0900, Until Discontinued, Swallow whole. Do not crush, break or chew. Given 09/12/2023 8:32 AM EDT 750 mg Given 09/11/2023 8:25 PM EDT 750 mg Given 09/11/2023 9:37 AM EDT 750 mg Docusate Sodium (Colace) cap 100 mg 100 mg, Oral, BID (.AM/PM), First dose on Mon09/08/23 at 0900, Until Discontinued, For oral administration ONLY, if route of administration is other than oral and alternative product must be ordered. Given 09/12/2023 8:32 AM EDT 100 mg Given 09/11/2023 8:25 PM EDT 100 mg Given 09/08/2023 8:38 PM EDT 100 mg DULoxetine (Cymbalta) DR cap 20 mg 20 mg, Oral, Daily(AM), First dose on Mon09/08/23 at 0900, Until Discontinued Given 09/12/2023 8:32 AM EDT 20 mg Given 09/11/2023 8:53 AM EDT 20 mg Given 09/10/2023 8:41 AM EDT 20 mg Enoxaparin (Lovenox) inj 40 mg 40 mg, Subcutaneous, Daily(AM), First dose on Mon09/09/23 at 0900, Until Discontinued, If patient is on warfarin, inform provider if daily INR value is 2 or greater! Given 09/12/2023 8:32 AM EDT 40 mg Abdom en Right Lower Given 09/11/2023 8:54 AM EDT 40 mg Ab domen Left Lower Given 09/10/2023 8:41 AM EDT 40 mg Ab domen Right Lower fentaNYL (PF) inj 50 mcg 50 mcg, IV Push, Q2H PRN Pain, Severe, Starting on 09/09/23 at 1050, Until Mon09/09/23 at 1229, For 2 doses, When given IV Push its recommended that the dose be given over 3 to 5 minutes. Given 09/09/2023 11:02 AM EDT 50 mcg fentaNYL (PF) inj 50 mcg 50 mcg, IV Push, ONCE, On 09/09/23 at 1300, For 1 dose, When given IV Push its recommended that the dose be given over 3 to 5 minutes. Given 09/09/2023 12:42 PM EDT 50 mcg Ferrous Sulfate (Feosol) tab 325 mg 325 mg, Oral, DAILY NOON, First dose on Mon09/08/23 at 1200, Until Discontinued, This med should NOT be Crushed or Chewed Given 09/10/2023 1:16 PM EDT 325 mg Given 09/08/2023 1:09 PM EDT 325 mg fluticasone furoate-vilanterol (BREO ellipta) 200-25 MCG/ACT inhaler 1 Puff 1 Puff, Inhalation, RESPDAILY, First dose on Mon09/08/23 at 1000, Until Discontinued, NURSING TO FOLLOW PATIENT WITH MDI/DPI ADMINISTRATION Given 09/12/2023 8:37 AM EDT 1 Puff Given 09/11/2023 8:54 AM EDT 1 Puff Given 09/10/2023 11:10 AM EDT 1 Puff levETIRAcetam (Keppra) 250 mg in NSS 100 mL ivpb 250 mg, IV Piggyback, ONCE, 1 dose, On Mon09/08/23 at 0845, at 675 mL/hr Administer over 10 Minutes New Bag 09/08/2023 10:11 AM EDT 250 mg 675 mL/hr levETIRAcetam (Keppra) tab 1,500 mg 1,500 mg, Oral, Daily(AM), First dose (after last modification) on Mon09/08/23 at 0900, Until Discontinued Given 09/12/2023 8:32 AM EDT 1,500 mg Given 09/11/2023 8:53 AM EDT 1,500 mg Given 09/10/2023 8:38 AM EDT 1,500 mg levETIRAcetam (Keppra) tab 1,500 mg 1,500 mg, Oral, QHS, First dose (after last modification) on Mon09/08/23 at 2200, Until Discontinued Given 09/11/2023 8:25 PM EDT 1,500 mg Given 09/10/2023 8:28 PM EDT 1,500 mg Given 09/09/2023 8:41 PM EDT 1,500 mg multivitamin (Mvi) 1 Tablet 1 Tablet, Oral, DAILY NOON, First dose on Mon09/08/23 at 1200, Until Discontinued Given 09/12/2023 11:06 AM EDT 1 Ta blet Given 09/11/2023 11:02 AM EDT 1 Tablet Given 09/10/2023 1:16 PM EDT 1 Tablet NSS 0.9% 500 mL bolus infusion Intravenous, at 500 mL/hr Administer over 60 Minutes, Administer entire volume within 60 minutes or less., ONCE, 1 dose, On Mon09/10/23 at 0330 New Bag 09/10/2023 3:03 AM EDT 500 mL 500 mL/hr traMADol (Ultram) tab 50 mg 50 mg, Oral, Q8H PRN Pain, Severe, Starting on Mon09/08/23 at 0210, Until Mon09/12/23 at 1807 Given 09/12/2023 11:06 AM EDT 50 mg Given 09/11/2023 8:28 PM EDT 50 mg Given 09/11/2023 11:02 AM EDT 50 mg umeclidinium [place] (INCRUSE ellipta) 62.5 MCG/ACT inhaler 1 Puff 1 Puff, Inhalation, RESPDAILY, First dose on Mon09/08/23 at 1000, Until Discontinued, NURSING TO FOLLOW PATIENT WITH MDI/DPI ADMINISTRATION Given 09/12/2023 8:37 AM EDT 1 Puff Given 09/11/2023 8:54 AM EDT 1 Puff Given 09/08/2023 9:06 AM EDT 1 Puff documented in this encounter Active and Recently Administered Medications Times are shown in EDT. Scheduled Medication Order 09/10/2023 09/11/2023 09/12/2023 Acetaminophen (Tylenol) tab 650 mg (COMPLETED) 650 mg, Oral, ONCE, On Mon09/10/23 at 1145, For 1 dose, Maximum of 4 grams (4000 mg) per day. 1109 (Given - Provider: Yamel Hernandez RN) atorvaSTATin (Lipitor) tab 20 mg 20 mg, Oral, Daily(AM), First dose on Mon09/08/23 at 0900, Until Discontinued 0839 (Given - Provider: Yamel Hernandez RN) 0853 (Given - Provider: Sammie Whalen RN) 0833 (Given - Provider: Sammie Whalen RN) Calcium Carbonate 500 mg + Vitamin D 5 mcg (200 units) per tab 1 Tablet, Oral, WITH MEALS, First dose on Mon09/08/23 at 0800, Until Discontinued, Vitamin D 200 units = 5 mcg 0838 (Given - Provider: Yamel Hernandez RN)1316 (Given - Provider: Yamel Hernandez RN)1737 (Given - Provider: Yamel Hernandez RN) 0853 (Given - Provider: Sammie Whalen RN)1102 (Given - Provider: Sammie Whalen RN)1640 (Given - Provider: Sammie Whalen RN) 0833 (Given - Provider: Sammie Whalen RN)1106 (Given - Provider: Sammie Whalen RN) cefTRIAXone in dextrose (Rocephin) IVPB 1 g IV Piggyback, 1 g, Q24H, 3 doses, First dose on Mon09/12/23 at 1230, Last dose on Mon09/14/23 at 1230, Administer over 30 Minutes 1232 (New Bag - Provider: Sammie Whalen RN)1807 (Due: Stopped) cloBAZam (Onfi) tab 15 mg 15 mg, Oral, Daily(AM), First dose on Mon09/08/23 at 0845, Until Discontinued 0841 (Given - Provider: Yamel Hernandez RN) 0853 (Given - Provider: Sammie Whalen RN) 0833 (Given - Provider: Sammie Whalen RN) divalproex ER (Depakote ER) extended release tab 750 mg 750 mg, Oral, BID (.AM/PM), First dose on Mon09/08/23 at 0900, Until Discontinued, Swallow whole. Do not crush, break or chew. 0841 (Given - Provider: Yamel Hernandez RN)2027 (Given - Provider: Sebastian Reyes RN) 0937 (Given - Provider: Sammie Whalen RN)2024 (Given - Provider: Savi Astudillo, MARTINE) 0832 (Given - Provider: Sammie Whalen RN) Docusate Sodium (Colace) cap 100 mg 100 mg, Oral, BID (.AM/PM), First dose on Mon09/08/23 at 0900, Until Discontinued, For oral administration ONLY, if route of administration is other than oral and alternative product must be ordered. 0838 (Not Given - Provider: Yamel Hernandez RN - Reason: Refused-Notify Provider)2100 (Not Given - Provider: Sebastian Reyes RN - Reason: Refused-Notify Provider - Comment: neurology jorge luis oneil notified) 09 (Not Given - Provider: Sammie Whalen RN - Reason: Refused-Notify Provider)2024 (Given - Provider: Savi Astudillo RN) 0832 (Given - Provider: Sammie Whalen RN) DULoxetine (Cymbalta) DR cap 20 mg 20 mg, Oral, Daily(AM), First dose on Mon09/08/23 at 0900, Until Discontinued 0841 (Given - Provider: Yamel Hernandez RN) 0853 (Given - Provider: Sammie Whalen RN) 0832 (Given - Provider: Sammie Whalen RN) Enoxaparin (Lovenox) inj 40 mg 40 mg, Subcutaneous, Daily(AM), First dose on Mon09/09/23 at 0900, Until Discontinued, If patient is on warfarin, inform provider if daily INR value is 2 or greater! 0841 (Given - Provider: Yamel Hernandez RN) 0854 (Given - Provider: Sammie Whalen RN) 0832 (Given - Provider: Sammie Whalen RN) Ferrous Sulfate (Feosol) tab 325 mg 325 mg, Oral, DAILY NOON, First dose on Mon09/08/23 at 1200, Until Discontinued, This med should NOT be Crushed or Chewed 1316 (Given - Provider: Yamel Hernandez RN) 1104 (Not Given - Provider: Sammie Whalen RN - Reason: Refused-Notify Provider) 1107 (Not Given - Provider: Sammie Whalen RN - Reason: Refused-Notify Provider) fluticasone furoate-vilanterol (BREO ellipta) 200-25 MCG/ACT inhaler 1 Puff 1 Puff, Inhalation, RESPDAILY, First dose on Mon09/08/23 at 1000, Until Discontinued, NURSING TO FOLLOW PATIENT WITH MDI/DPI ADMINISTRATION 1110 (Given - Provider: Yamel Hernandez RN) 0854 (Given - Provider: Sammie Whalen RN) 0837 (Given - Provider: Sammie Whalen RN) levETIRAcetam (Keppra) tab 1,500 mg 1,500 mg, Oral, Daily(AM), First dose (after last modification) on Mon09/08/23 at 0900, Until Discontinued 08 (Given - Provider: Yamel Hernandez RN) 0853 (Given - Provider: Sammie Whalen RN) 0832 (Given - Provider: Sammie Whalen RN) levETIRAcetam (Keppra) tab 1,500 mg 1,500 mg, Oral, QHS, First dose (after last modification) on Mon09/08/23 at 2200, Until Discontinued 2027 (Given - Provider: Sebastian Reyes RN) 2024 (Given - Provider: Savi Astudillo RN) multivitamin (Mvi) 1 Tablet 1 Tablet, Oral, DAILY NOON, First dose on Mon09/08/23 at 1200, Until Discontinued 1316 (Given - Provider: Yamel Hernandez RN) 1102 (Given - Provider: Sammie Whalen RN) 1106 (Given - Provider: Sammie Whalen RN) NSS 0.9% 500 mL bolus infusion (COMPLETED) Intravenous, at 500 mL/hr Administer over 60 Minutes, Administer entire volume within 60 minutes or less., ONCE, 1 dose, On Mon09/10/23 at 0330 0303 (New Bag - Provider: Michael Colby RN) umeclidinium [place] (INCRUSE ellipta) 62.5 MCG/ACT inhaler 1 Puff 1 Puff, Inhalation, RESPDAILY, First dose on Mon09/08/23 at 1000, Until Discontinued, NURSING TO FOLLOW PATIENT WITH MDI/DPI ADMINISTRATION 0800 (Not Given - Provider: Yamel Hernandez RN - Reason: Order Clarified) 0854 (Given - Provider: Sammie Whalen, MARTINE) 0837 (Given - Provider: Sammie Whalen RN) PRN Medication Order 09/10/2023 09/11/2023 09/12/2023 Acetaminophen (Tylenol) tab 650 mg 650 mg, Oral, Q6H PRN Headache, Starting on Mon09/10/23 at 1745, Until Mon09/12/23 at 1807, Maximum of 4 grams (4000 mg) per day. 1806 (Given - Provider: Yamel Hernandez RN) 0601 (Given - Provider: Sebastian Reyes RN)1640 (Given - Provider: Sammie Whalen RN) 1011 (Given - Provider: Sammie Whalen RN) metoprolol succinate XL (toPROL XL) tab 25 mg 25 mg, Oral, DAILY PRN Other, If SBP greater than or equal 100, Starting on Mon09/08/23 at 0212, Until Mon09/12/23 at 1807, Hold for HR less than 60 or SBP below 100 and notify service if dose is held This med should NOT be Crushed or Chewed. sodium chloride 0.9 % flush/inj 3 mL 3 mL, IV Push, PRN Other, Line Patency, Starting on Mon09/08/23 at 0120, Until Mon09/12/23 at 1807, Do not flush if lock, PICC, or central line not in place, IV infusing or unable to flush traMADol (Ultram) tab 50 mg 50 mg, Oral, Q8H PRN Pain, Severe, Starting on Mon09/08/23 at 0210, Until Mon09/12/23 at 1807 0609 (Given - Provider: Michael Colby RN)1341 (Given - Provider: Yamel Hernandez RN) 1102 (Given - Provider: Sammie Whalen RN)8 (Given - Provider: Savi Astudillo RN) 1106 (Given - Provider: Sammie Whalen RN) documented in this encounter Advance Directives Latest Code Status [...] the patient have Health Care Power of Pharmacist Manager? No Full Code 04/11/2018 3:26 PM 04/13/2018 6:58 PM This order reflects the patients wishes and were consensually agreed upon. Question Answer Comments Discussion of Advance Directives occurred with: Patient Does the patient have a Living Will? No Does the patient have Health Care Power of Pharmacist Manager? No Healthcare Agents on File Name Relationship Healthcare Agent Relationship Communication Davide Godinez [facility] er of Pharmacist Manager [email or web address] Care Teams [employer] Rep Relationship Specialty Start Date End Date Tanesha Ponce DO [address] [place] [address] PCP - General Family Medicine 02/12/23 documented as of this encounter
--- OUTSIDE RECORDS SUMMARY | 2023-09-26 21:31 | External Medical Summary | Summary of Care ---
Author Name Unknown Organization [facility] Address [address] [facility] [place] [address] Phone [phone] Care Team Providers Care Hide Examiner Name Role Phone NarcisobhavaniTanesha saldana Primary Care Provider Encounter Details Date Type Department Care Team (Latest Contact Info) Description 09/07/2023 11:10 AM EDT - 09/07/2023 11:14 AM EDT Hospital Encounter Radiology Film File [address] [facility] [place] [address] Arrived Discharge Disposition: Home - Self Care Allergies Active Allergy Reactions Criticality Noted Date Comments Ciprofloxacin Seizure High 08/06/2019 Morphine 08/09/2018 Other Allergy (See Comments) 01/30/2018 ALCOHOL & OPIOIDS Sulfa Antibiotics 10/31/2014 Hives/rash Lacosamide Other (Please comment) High 04/02/2019 Developed resp distress, breathing slowed and became unresponsive. documented as of this encounter (statuses as of 09/09/2023) Medications Medication Sig Dispensed Refills Start Date [...] brace To be evaluated by [facility] at [facility] 1 Each 0 01/20/2022 Suspended [...] MCG/ACT Inhalation Aerosol Powder Breath Activated (umeclidinium Burns)Indicatio ns:Chronic respiratory failure with hypoxia (HCC) INHALE [...] as of this encounter (statuses as of 09/09/2023) Active Problems Problem Noted Date Diagnosed Date CHAPO (generalized anxiety disorder) 08/01/2023 Atherosclerosis of [place] ronary artery without angina pectoris 06/23/2022 Claustrophobia 06/23/2022 PVD (peripheral vascular disease) 12/15/2021 COPD, group B, by GOLD 2017 classification 07/19 Overview: Per COPD GOLD Classification Encounter for antineoplastic chemotherapy 2020 Alcoholism in recovery 01/08/2021 Old SC (myocardial infarction) 12/10/2019 Moderate major depression 06/18/2019 [...] as of this encounter (statuses as of 09/09/2023) Resolved Problems Problem Noted Date Diagnosed Date [...] as of this encounter (statuses as of 09/09/2023) Immunizations Name Administration Dates Next Due COVID-19 mRNA, LNP-s, No Pre serve, 2-Dose Series (House Party) 04/14/2021,09/10/2020,08/13/2020 COVID-19, LNP-s, No Preserve , Tom-sucrose, [...] you have serious difficulty h earing? No 04/11/2018 Are you blind or do you have serious difficulty seeing, even when wearing glasses? No 04/11/2018 Do you have serious difficul ty walking or climbing stairs? (5 years old or older) No 04/11/2018 Do you have difficulty dress ing or bathing? (5 years old or older) No 04/11/2018 Because of a physical, menta l, or emotional condition, do you have difficulty doing errands alone such as visiting a doctor s office or shopping? (15 years old or older) No 04/11/20 18 Cognitive Status Response Date of Assessm ent Because of a physical, menta l, or emotional condition, do you have serious difficulty concentrating, remembering, or making decisions? (5 years old or older) No 04/11/2018 documented as of this encounter Plan of Treatment Upcoming Encounters Date Type Department Care Team (Late st Contact Info) Description 10/10/2023 2:00 PM EDT Office Visit Otolaryngology [facility] [address] [address] [address] Nish Glynn, DO [address] [address] [address] 10/13/2023 11:20 AM EDT Office Visit Family Practice [address] [facility] [address] [facility], [place] [phone] Tanesha Ponce DO [address] [place] [address] 10/19/2023 10:40 AM EDT Office Visit Podiatry [facility] [address] [place] [address] [address] Laura Owen, DPLyla [address] [facility] [place] [address] 03/12/2024 1:00 PM EDT Nurse Only Ancillary [address] [facility] [address] [facility], [place] [address] College, Nurse Annual Wellness Visit [address] [address] Scheduled Procedures Name Priority Associated Diagnoses Date/Ti me CATHETER PLACEMENT INTERNAL CAROTID ARTERY AVM (arteriovenous malformation) 09/09/2023 7:05 AM EDT CATHETER PLACEMENT VERTEBRAL ARTERY, AVM (arteriovenous malformation) 09/09/2023 7:05 AM EDT Health Maintenance Due Date Last Done Comments DXA Scan 1945 Alpha-1 Antitrypsin 1964 Depression Screening 03/06/2024 03/06/2023 O2 ASSESSMENT COMPLETED IN PAST YEAR FOR COPD 09/08/2024 09/09/2023 DTaP,Tdap,and Td Vaccines (2 - Td or Tdap) 02/02/2028 02/01/2018 Pneumococcal Vaccine: 65+ Years Completed 05/04/2016, 05/10/2015, 04/22/2015, Additional history exists LUNG CANCER SCREENING - USE SMARTSET 13627 Completed 08/21/2020, 01/29/2020, 07/18/2019, Additional history exists [...] Procedure Name Priority Date/Time Associated Diagnosis Comments RADIOLOGY EXAM - CT (IMAGES ONLY, NO REPORT) Routine 09/07/2023 11:10 AM EDT documented in this encounter Results * RADIOLOGY EXAM - CT (IMAGES ONLY, NO REPORT) (09/07/2023 11:10 AM EDT) 09/07/2023 11:0 9 AM EDT Narrative Scheduling, Silent - 09/08/2023 3:11 PM EDT This is an imaging study not interpreted or resulted by a [facility] or [employer]er contracted radiologist. Tanesha M Holencik DO RAD CT documented in this encounter Advance Directives Latest [...] the patient have Health Care Power of Remotely Piloted Vehicle Controller? No Full Code 04/11/2018 3:26 PM 04/13/2018 6:58 PM This order reflects the patients wishes and were consensually agreed upon. Question Answer Comments Discussion of Advance Directives occurred with: Patient Does the patient have a Living Will? No Does the patient have Health Care Power of Remotely Piloted Vehicle Controller? No Healthcare Agents on File Name Relationship Healthcare Agent Relationship Communication Davide Irvin [facility] er of Remotely Piloted Vehicle Controller [email or web address] Care Teams Hide Examiner Relationship Specialty Start Date End Date Tanesha Ponce DO [address] [place] [id number] PCP - General Family Medicine 02/12/23 documented as of this encounter
--- OUTSIDE RECORDS SUMMARY | 2023-09-26 21:31 | External Medical Summary ---
Author Name Unknown Address Unknown Organization K01:LABORATORY [facility] [place] - [address] [place] [address] Laboratory Report Ordering Provider Test Date Status JASON PAIGE 09/08/2023 02:06:00 Final Observation Date Value Abnormality Reference (Units ) Status Levetiracetam level 09/08/2023 02:06:00 >60 3-63 (ug/mL) Final Performing Location LABORATORY [facility] [place] - [address] [place] [address]
--- OUTSIDE RECORDS SUMMARY | 2023-09-26 21:31 | External Medical Summary | Summary of Care ---
Author Name Unknown Organization [facility] Address [address] [place] [address] Phone [phone] Care Team Providers Care Mechanical Engineering Professor Name Role Phone Tanesha Ponce DO Primary Care Provider Encounter Details Date Type Department Care Team (Late st Contact Info) Description 09/07/2023 Orders Only Family Practice [address] [place] [address] [place] [address] Tanesha Ponce DO [address] [place], [place] [id number] Allergies Active Allergy Reactions Criticality Noted Date Comments Ciprofloxacin Seizure High 08/06/2019 Morphine 08/09/2018 Other Allergy (See Comments) 01/30/2018 ALCOHOL & OPIOIDS Sulfa Antibiotics 10/31/2014 Hives/rash Lacosamide Other (Please comment) High 04/02/2019 Developed resp distress, breathing slowed and became unresponsive. documented as of this encounter (statuses as of 09/08/2023) Medications Medication Sig Dispensed Refills Start Date [...] Right knee brace To be evaluated by Career Representative at [facility] 1 Each 0 01/20/2022 Suspended Additional [...] MCG/ACT Inhalation Aerosol Powder Breath Activated (umeclidinium [place])Indicatio ns:Chronic respiratory failure with hypoxia (HCC) INHALE [...] as of this encounter (statuses as of 09/08/2023) Active Problems Problem Noted Date Diagnosed Date Seizure-like activity 09/08/2023 CHAPO (generalized anxiety disorder) 08/01/2023 Atherosclerosis of [place] co ronary artery without angina pectoris 06/23/2022 Claustrophobia 06/23/2022 PVD (peripheral vascular disease) 12/15/2021 COPD, group B, by GOLD 2017 classification 07/19 Overview: Per COPD GOLD Classification Encounter for antineoplastic chemotherapy 2020 Alcoholism in recovery 01/08/2021 Old [place] (myocardial infarction) 12/10/2019 Moderate major depression 06/18/2019 [...] as of this encounter (statuses as of 09/08/2023) Resolved Problems Problem Noted Date Diagnosed Date [...] as of this encounter (statuses as of 09/08/2023) Immunizations Name Administration Dates Next Due COVID-19 mRNA, LNP-s, No Pre serve, 2-Dose Series (Plex[employer]) 04/14/2021,09/10/2020,08/13/2020 COVID-19, LNP-s, No Preserve , Tom-sucrose, Ages 12+ (PlexPress) 12/21/2021 COVID-19, MRNA-LNP, 23-24, P F, 30 MCG/0.3 mL, 12 YRS AND ABOVE, IM ([employer]-Comirnaty) 04/11/2023 Covid-19, Mrna, Lnp-s, Pf, B ivalent, 30 Mcg, IM, 12 yrs and above (PlexPress) 04/12/2022 Pneumococcal Conjugate Vacc, 13 Valent (Prevnar) [...] 10/10/2023 2:00 PM EDT Office Visit Otolaryngology [facility] [address] [address] Nish Glynn, DO [address] [place] [address] 10/13/2023 11:20 AM EDT Office Visit Family Practice 65 [facility] 293 [facility] [place] [address] Tanesha Ponce, DO [address] [place] [address] 10/19/2023 10:40 AM EDT Office Visit Podiatry [facility] [address] [place] [address] Laura Owen, DPLacie [address] [place] [address] 03/12/2024 1:00 PM EDT Nurse Only Ancillary 65 [facility] 293 [facility] [place], [place] [address] College, Nurse Annual Wellness Visit [address] [address] Health Maintenance Due Date Last Done Comments DXA Scan 1945 Alpha-1 Antitrypsin 1964 Depression Screening 03/06/2024 03/06/2023 O2 ASSESSMENT COMPLETED IN PAST YEAR FOR COPD 09/07/2024 09/08/2023 DTaP,Tdap,and Td Vaccines (2 - Td or Tdap) 02/02/2028 02/01/2018 Pneumococcal Vaccine: 65+ Years Completed 05/04/2016, 05/10/2015, 04/22/2015, Additional history exists LUNG CANCER SCREENING - USE SMARTSET 61944 Completed 08/21/2020, 01/29/2020, 07/18/2019, Additional history exists [...] CT (IMAGES ONLY, NO REPORT) Routine 09/07/2023 11:15 AM EDT documented in this encounter Results * RADIOLOGY EXAM - CT (IMAGES ONLY, NO REPORT) (09/07/2023 11:15 AM EDT) 09/07/2023 11:0 9 AM EDT Narrative Scheduling, Silent - 09/08/2023 3:22 PM EDT This is an imaging study not interpreted or resulted by a [facility] or [facility] contracted radiologist. Tanesha Ponce DO RAD CT documented in this encounter [...] the patient have Health Care Power of Relay Telegrapher? No Full Code 04/11/2018 3:26 PM 04/13/2018 6:58 PM This order reflects the patients wishes and were consensually agreed upon. Question Answer Comments Discussion of Advance Directives occurred with: Patient Does the patient have a Living Will? No Does the patient have Health Care Power of Relay Telegrapher? No Healthcare Agents on File Name Relationship Healthcare Agent Relationship Communication Rodrigo Godinez [facility] Health Care [facility] er of Relay Telegrapher [phone] ([email or web address] Care Teams Mechanical Engineering Professor Relationship Specialty Start Date End Date Tanesha Ponce DO [address] [place] [address] PCP - General Family Medicine 02/12/23 documented as of this encounter
--- OUTSIDE RECORDS SUMMARY | 2023-09-26 21:31 | External Medical Summary | Summary of Care ---
Author Name Unknown Organization [facility] Address [address] [place] [address] Phone [phone] Care Team Providers Care Dress Marker Name Role Phone Tanesha Ponce DO Primary Care Provider Encounter Details Date Type Department Care Team (Late st Contact Info) Description 09/07/2023 Orders Only Family Practice [address], [place] [address] [place] [address] Tanesha Ponce DO [address] [place], [place] [address] Allergies Active Allergy Reactions Criticality Noted Date [...] Right knee brace To be evaluated by Industrial Maintenance Millwright at [facility] 1 Each 0 01/20/2022 Suspended [...] MCG/ACT Inhalation Aerosol Powder Breath Activated (umeclidinium [place])Indicatio ns:Chronic respiratory failure with hypoxia (HCC) INHALE [...] CHAPO (generalized anxiety disorder) 08/01/2023 Atherosclerosis of [place] co ronary artery without angina pectoris 06/23/2022 Claustrophobia 06/23/2022 PVD (peripheral vascular disease) 12/15/2021 COPD, group B, by GOLD 2017 classification 07/19 Overview: Per COPD GOLD Classification Encounter for antineoplastic chemotherapy 2020 Alcoholism in recovery 01/08/2021 Old [place] (myocardial infarction) 12/10/2019 Moderate major depression 06/18/2019 [...] mRNA, LNP-s, No Pre serve, 2-Dose Series ([employer]bo GmbH) 04/14/2021,09/10/2020,08/13/2020 COVID-19, LNP-s, No Preserve , Tom-sucrose, Ages 12+ (trbo GmbH) 12/21/2021 COVID-19, MRNA-LNP, 23-24, P F, 30 MCG/0.3 mL, 12 YRS AND ABOVE, IM (imgfave-Comirnaty) 04/11/2023 Covid-19, Mrna, Lnp-s, Pf, B ivalent, 30 Mcg, IM, 12 yrs and above (trbo GmbH) 04/12/2022 Pneumococcal Conjugate Vacc, 13 Valent (Prevnar) [...] 10/10/2023 2:00 PM EDT Office Visit Otolaryngology [facility] [address] [address] Nish Glynn, DO [address] [place] [address] 10/13/2023 11:20 AM EDT Office Visit Family Practice 65 [facility] 293 [place] [address] Tanesha Ponce, DO [address] [place] [address] 10/19/2023 10:40 AM EDT Office Visit Podiatry [facility] [address] [place] [address] Laura Owen, DPLacie [address] [place] [address] 03/12/2024 1:00 PM EDT Nurse Only Ancillary 65 [facility] 293 [facility], [place] [address] College, Nurse Annual Wellness Visit [address] [address] Health Maintenance Due Date Last Done Comments DXA Scan 1946 Alpha-1 Antitrypsin 1964 Depression Screening 03/06/2024 03/06/2023 O2 ASSESSMENT COMPLETED IN PAST YEAR FOR COPD 09/07/2024 09/08/2023 DTaP,Tdap,and Td Vaccines (2 - Td or Tdap) 02/02/2028 02/01/2018 Pneumococcal Vaccine: 65+ Years Completed 05/04/2016, 05/10/2015, 04/22/2015, Additional history exists LUNG CANCER SCREENING - USE SMARTSET 19598 Completed 08/21/2020, 01/29/2020, 07/18/2019, Additional history exists [...] CT (IMAGES ONLY, NO REPORT) Routine 09/07/2023 11:20 AM EDT documented in this encounter Results * RADIOLOGY EXAM - CT (IMAGES ONLY, NO REPORT) (09/07/2023 11:20 AM EDT) 09/07/2023 11:0 9 AM EDT Narrative Scheduling, Silent - 09/08/2023 3:25 PM EDT This is an imaging study [...] the patient have Health Care Power of Assistant Professor Of Sociology? No Full Code 04/11/2018 3:26 PM 04/13/2018 6:58 PM This order reflects the patients wishes and were consensually agreed upon. Question Answer Comments Discussion of Advance Directives occurred with: Patient Does the patient have a Living Will? No Does the patient have Health Care Power of Assistant Professor Of Sociology? No Healthcare Agents on File Name Relationship Healthcare Agent Relationship Communication Rodrigo Godinez [facility] Health Care [facility] er of Assistant Professor Of Sociology [phone] ([email or web address] Care Teams Dress Marker Relationship Specialty Start Date End Date Tanesha Ponce DO [address] [place] [address] PCP - General Family Medicine 02/12/23 documented as of this encounter
--- OUTSIDE RECORDS SUMMARY | 2023-09-26 21:31 | External Medical Summary ---
Author Name Unknown Address Unknown Organization K01:LABORATORY [facility] [place] - [address] [place] [address] Laboratory Report Ordering Provider Test Date Status JASON PAIGE 09/11/2023 05:51:00 Final Observation Date Value Abnormality Reference (Units ) Status BUN 09/11/2023 05:51:00 19 6-20 (mg/dL) Final Creatinine 09/11/2023 05:51:00 0.7 0.5-1.0 (mg/dL) Final Glomerular filtration rate/1.73 sq M.predicted [Volume Rate/Area] in Serum, Plasma or Blood by Creatinine-based formula (CKD-EPI) 09/11/2023 05:51:00 86 >=60 (mL/min) Final eGFR is calculated based on the CKD-EPI 2020 equation Sodium 09/11/2023 05:51:00 140 135-146 (m mol/L) Final Potassium 09/11/2023 05:51:00 4.3 3.5-5.1 (m mol/L) Final Cl 09/11/2023 05:51:00 103 98-107 (mm ol/L) Final CO2 09/11/2023 05:51:00 28 22-32 (mmo l/L) Final Anion gap 09/11/2023 05:51:00 9 7-15 (mmol /L) Final Glucose 09/11/2023 05:51:00 86 70-120 (mg /dL) Final Calcium 09/11/2023 05:51:00 9.4 8.4-10.2 ( mg/dL) Final Performing Location LAB[facility]ATORY [facility] [place] [facility] [address] [place] [address]
--- OUTSIDE RECORDS SUMMARY | 2023-09-26 21:31 | External Medical Summary | Summary of Care ---
Author Name Unknown Organization [facility] Address [address] [place] [address] Phone [phone] Care Team Providers Care Motorcycle Subassembler Name Role Phone Tanesha Ponce DO Primary Care Provider Encounter Details Date Type Department Care Team (Late st Contact Info) Description 09/07/2023 Orders Only Family Practice [address], [place] [address] [place] [address] Tanesha Ponce DO [address] [place], [place] [phone] Allergies Active Allergy Reactions Criticality Noted Date [...] Right knee brace To be evaluated by Head Golf Coach at [facility] 1 Each 0 01/20/2022 Suspended Additional [...] MCG/ACT Inhalation Aerosol Powder Breath Activated (umeclidinium [place])Indicatio ns:Chronic respiratory failure with hypoxia (HCC) INHALE [...] CHAPO (generalized anxiety disorder) 08/01/2023 Atherosclerosis of [place] co ronary artery without angina pectoris 06/23/2022 Claustrophobia 06/23/2022 PVD (peripheral vascular disease) 12/15/2021 COPD, group B, by GOLD 2017 classification 07/19 Overview: Per COPD GOLD Classification Encounter for antineoplastic chemotherapy 2020 Alcoholism in recovery 01/08/2021 Old [place] (myocardial infarction) 12/10/2019 Moderate major depression 06/18/2019 [...] mRNA, LNP-s, No Pre serve, 2-Dose Series (Lytro) 04/14/2021,09/10/2020,08/13/2020 COVID-19, LNP-s, No Preserve , Tom-sucrose, Ages 12+ (Lytro) 12/21/2021 COVID-19, MRNA-LNP, 23-24, P F, 30 MCG/0.3 mL, 12 YRS AND ABOVE, IM (Polatis-Comirnaty) 04/11/2023 Covid-19, Mrna, Lnp-s, Pf, B ivalent, 30 Mcg, IM, 12 yrs and above (Lytro) 04/12/2022 Pneumococcal Conjugate Vacc, 13 Valent (Prevnar) [...] 10/10/2023 2:00 PM EDT Office Visit Otolaryngology [facility] [address] [address] Nish Glynn, DO [address] [place] [address] 10/13/2023 11:20 AM EDT Office Visit Family Practice 65 [facility] 293 [facility] [place] [address] Tanesha Ponce, DO [address] [place] [address] 10/19/2023 10:40 AM EDT Office Visit Podiatry [facility] [address] [place] [address] Laura Owen, DPLacie [address] [place] [address] 03/12/2024 1:00 PM EDT Nurse Only Ancillary 65 [facility] 293 [facility], [place] [address] College, Nurse Annual Wellness Visit [address] [address] Health Maintenance Due Date Last Done Comments DXA Scan 1946 Alpha-1 Antitrypsin 1964 Depression Screening 03/06/2024 03/06/2023 O2 ASSESSMENT COMPLETED IN PAST YEAR FOR COPD 09/07/2024 09/08/2023 DTaP,Tdap,and Td Vaccines (2 - Td or Tdap) 02/02/2028 02/01/2018 Pneumococcal Vaccine: 65+ Years Completed 05/04/2016, 05/10/2015, 04/22/2015, Additional history exists LUNG CANCER SCREENING - USE SMARTSET 29577 Completed 08/21/2020, 01/29/2020, 07/18/2019, Additional history exists [...] the patient have Health Care Power of Underwriting Sales Representative? No Full Code 04/11/2018 3:26 PM 04/13/2018 6:58 PM This order reflects the patients wishes and were consensually agreed upon. Question Answer Comments Discussion of Advance Directives occurred with: Patient Does the patient have a Living Will? No Does the patient have Health Care Power of Underwriting Sales Representative? No Healthcare Agents on File Name Relationship Healthcare Agent Relationship Communication Rodrigo Godinez [facility] Health Care [facility] er of Underwriting Sales Representative [phone] ([email or web address] Care Teams Motorcycle Subassembler Relationship Specialty Start Date End Date Tanesha Ponce DO [address] [place] [address] PCP - General Family Medicine 02/12/23 documented as of this encounter
--- OUTSIDE RECORDS SUMMARY | 2023-09-26 21:31 | External Medical Summary ---
Author Name Unknown Address Unknown Organization K01:[facility] [place] [address] [place] [address] Laboratory Report Ordering Provider Test Date Status GRECIADRCANDACE 09/10/2023 08:07:00 Final Observation Date Value Abnormality Reference (Units ) Status WBC, Total 09/10/2023 08:07:00 7.23 4.00-10.80 (K/uL) Final RBC 09/10/2023 08:07:00 3.46 3.85-5.15 (M/uL) Final Hemoglobin 09/10/2023 08:07:00 11.7 Below low normal 12.0-15.3 (g/dL) Final HCT 09/10/2023 08:07:00 36.4 36.0-45.2 (%) Final MCV 09/10/2023 08:07:00 105.2 81.5-97.5 (fL) Final MCH 09/10/2023 08:07:00 33.8 27.0-34.0 (pg) Final MCHC 09/10/2023 08:07:00 32.1 32.0-36.0 (g/dL) Final RDW 09/10/2023 08:07:00 13.1 11.5-15.5 (%) Final Platelets 09/10/2023 08:07:00 186 140-400 (K/uL) Final MPV 09/10/2023 08:07:00 8.9 6.6-11.1 (fL) Final Nucleated erythrocytes/100 leukocytes [Ratio] in Blood by Automated count 09/10/2023 08:07:00 0 <=0 (/100 WBCs) Final Performing Location [facility] [place] [address] [place] [address]
--- OUTSIDE RECORDS SUMMARY | 2023-09-26 21:31 | External Medical Summary ---
Author Name Unknown Address Unknown Organization K01:[facility] [place] [address] [place] [address] Laboratory Report Ordering Provider Test Date Status JASON PAIGE 09/09/2023 06:20:00 Final Observation Date Value Abnormality Reference (Units ) Status BUN 09/09/2023 06:20:00 23 Above high normal 6-20 (mg/dL) Final Creatinine 09/09/2023 06:20:00 0.7 0.5-1.0 (mg/dL) Final Glomerular filtration rate/1.73 sq M.predicted [Volume Rate/Area] in Serum, Plasma or Blood by Creatinine-based formula (CKD-EPI) 09/09/2023 06:20:00 85 >=60 (mL/min) Final eGFR is calculated based on the CKD-EPI 2020 equation Sodium 09/09/2023 06:20:00 141 135-146 (m mol/L) Final Potassium 09/09/2023 06:20:00 4.5 3.5-5.1 (m mol/L) Final Cl 09/09/2023 06:20:00 102 98-107 (mm ol/L) Final CO2 09/09/2023 06:20:00 28 22-32 (mmo l/L) Final Anion gap 09/09/2023 06:20:00 11 7-15 (mmol /L) Final Glucose 09/09/2023 06:20:00 101 70-120 (mg /dL) Final Calcium 09/09/2023 06:20:00 9.9 8.4-10.2 ( mg/dL) Final Performing Location [facility] [place] [address] [place] [address]
--- OUTSIDE RECORDS SUMMARY | 2023-09-26 21:31 | External Medical Summary ---
Author Name Unknown Address Unknown Organization K01:LABORATORY [facility] [place] - [facility] [address] [place] [address] Laboratory Report Ordering Provider Test Date Status GRECIADRCANDACE 09/08/2023 02:06:00 Final Observation Date Value Abnormality Reference (Units ) Status WBC, Total 09/08/2023 02:06:00 7.80 4.00-10.80 (K/uL) Final RBC 09/08/2023 02:06:00 3.81 3.85-5.15 (M/uL) Final Hemoglobin 09/08/2023 02:06:00 12.9 12.0-15.3 (g/dL) Final HCT 09/08/2023 02:06:00 39.0 36.0-45.2 (%) Final MCV 09/08/2023 02:06:00 102.4 81.5-97.5 (fL) Final MCH 09/08/2023 02:06:00 33.9 27.0-34.0 (pg) Final MCHC 09/08/2023 02:06:00 33.1 32.0-36.0 (g/dL) Final RDW 09/08/2023 02:06:00 12.7 11.5-15.5 (%) Final Platelets 09/08/2023 02:06:00 189 140-400 (K/uL) Final MPV 09/08/2023 02:06:00 8.7 6.6-11.1 (fL) Final Nucleated erythrocytes/100 leukocytes [Ratio] in Blood by Automated count 09/08/2023 02:06:00 0 <=0 (/100 WBCs) Final Performing Location LABORATORY [facility] [place] - [address] [place] [address]
--- OUTSIDE RECORDS SUMMARY | 2023-09-26 21:31 | External Medical Summary ---
Author Name Unknown Address Unknown Organization K01:LABORATORY [facility] [place] - [address] [place] [facility] Laboratory Report Ordering Provider Test Date Status JASON PAIGE 09/08/2023 02:49:41 Final Observation Date Value Abnormality Reference (Units) Status Bacteria identified in Specimen by Culture 09/08/2023 02:49:41 No significant growth Final Test: Culture, Urine, Quant itative
Specimen Source: Urine, Catheter
Specimen Type: Urine
Specimen Date: 09/08/2023 2:49 AM
Result Date: 09/09/2023 8:50 AM
Result Status: Final result
Resulting Lab: LABORATORY [facility]
[address]
[place] [address]

CULTURE

No significant growth

null Performing Location LABORATORY [facility] [place] - [address] [place] [address]
--- OUTSIDE RECORDS SUMMARY | 2023-09-26 21:31 | External Medical Summary | Summary of Care ---
Author Name Unknown Organization [facility] Address [address] [facility] [place] [address] Phone [phone] Care Team Providers Care Business Services Assistant Name Role Phone Tanesha Ponce DO Primary Care Provider Reason for Visit * Reason Onset Date Comments Advice 09/11/2023 Rehab d/c Encounter Details Date Type Department Care Team (Late st Contact Info) Description 09/11/2023 Telephone Family Practice [address], [place] [address] [place] [phone] Tanesha Ponce DO [address] [place] [address] Advice (Rehab d/c) Allergies Active [...] brace To be evaluated by Tao at [facility] 1 Each 0 01/20/2022 Suspended Additional Information [...] MCG/ACT Inhalation Aerosol Powder Breath Activated (umeclidinium [place])Indicatio ns:Chronic respiratory failure with hypoxia (HCC) INHALE [...] CHAPO (generalized anxiety disorder) 08/01/2023 Atherosclerosis of [place] co ronary artery without angina pectoris 06/23/2022 Claustrophobia 06/23/2022 PVD (peripheral vascular disease) 12/15/2021 COPD, group B, by GOLD 2017 classification 07/19 Overview: Per COPD GOLD Classification Encounter for antineoplastic chemotherapy 2020 Alcoholism in recovery 01/08/2021 Old [place] (myocardial infarction) 12/10/2019 Moderate major depression 06/18/2019 [...] mRNA, LNP-s, No Pre serve, 2-Dose Series (Ven[employer]) 04/14/2021,09/10/2020,08/13/2020 COVID-19, LNP-s, No Preserve , Tom-sucrose, Ages 12+ (Pfizer) 12/21/2021 COVID-19, MRNA-LNP, 23-24, P F, 30 MCG/0.3 mL, 12 YRS AND ABOVE, IM (PFIZER-Comirnaty) 04/11/2023 Covid-19, Mrna, Lnp-s, Pf, B ivalent, 30 Mcg, IM, 12 yrs and above (Ven[employer] Concept) 04/12/2022 Pneumococcal Conjugate Vacc, 13 Valent (Prevnar) [...] encounter Miscellaneous Notes * Telephone Encounter - Verónica Clancy OSA - 09/11/2023 12:36 PM EDT Pt calling stating patient is being discharged into rehab for mobility, however; would liketo get Dr Ponce's thoughts before making any decisions. He is asking someone call him at [phone] documented in this encounter Plan of Treatment Upcoming Encounters Date Type Department Care Team (Late st Contact Info) Description 10/03/2023 9:00 AM EDT Office Visit [facility] [place] [address] [place] [address] Nito Meeks MD [address] [place] [address] 10/10/2023 2:00 PM EDT Office Visit Otolaryngology [facility] [address] [place] [address] Nish Glynn DO [address] [place] [address] 10/13/2023 11:20 AM EDT Office Visit Family Practice [address] [place] [address] [place] [address] Tanesha Ponce DO [address] [place] [address] 10/19/2023 10:40 AM EDT Office Visit Podiatry [facility] 132 [place] [address] Laura Owen, [place] 132 [place] [address] 03/12/2024 1:00 PM EDT Nurse Only Ancillary 65 [facility] [address] [place] [address] College, Nurse Annual Wellness Visit [address] [address] Health Maintenance Due Date Last Done Comments DXA Scan 1945 Alpha-1 Antitrypsin 1964 O2 ASSESSMENT COMPLETED IN PAST YEAR FOR COPD 09/08/2024 09/09/2023 DTaP,Tdap,and Td Vaccines (2 - Td or Tdap) 02/02/2028 02/01/2018 Pneumococcal Vaccine: 65+ Years Completed 05/04/2016, 05/10/2015, 04/22/2015, Additional history exists LUNG CANCER SCREENING - USE SMARTSET 88749 Completed 08/21/2020, 01/29/2020, 07/18/2019, Additional history exists [...] the patient have Health Care Power of Grinding Mill Operator? No Full Code 04/11/2018 3:26 PM 04/13/2018 6:58 PM This order reflects the patients wishes and were consensually agreed upon. Question Answer Comments Discussion of Advance Directives occurred with: Patient Does the patient have a Living Will? No Does the patient have Health Care Power of Grinding Mill Operator? No Healthcare Agents on File Name Relationship Healthcare Agent Relationship Communication Davide Irvin [facility] Health Care [facility] er of Grinding Mill Operator [email or web address] [email or web address] Care Teams Business Services Assistant Relationship Specialty Start Date End Date Tanesha Ponce DO 293 [facility] [place] [address] PCP - General Family Medicine 02/12/23 documented as of this encounter
--- OUTSIDE RECORDS SUMMARY | 2023-09-26 21:31 | External Medical Summary | Summary of Care ---
Author Name Unknown Organization [facility] Address [address] [facility] [place] [address] Phone [phone] Care Team Providers Care Card Mounter Name Role Phone NarcisobhavaniTanesha saldana Primary Care Provider [phone] Encounter Details Date Type Department Care Team (Latest Contact Info) Description 09/07/2023 11:15 AM EDT - 09/07/2023 11:19 AM EDT Hospital Encounter Radiology Film File [address] [place] [facility] [place] [address] Arrived Discharge Disposition: Home - Self [...] brace [facility] 0 01/20/2022 Suspended Additional [...] MCG/ACT Inhalation Aerosol Powder Breath Activated (umeclidinium [place])Indicatio ns:Chronic respiratory failure with hypoxia (HCC) INHALE [...] CHAPO (generalized anxiety disorder) 08/01/2023 Atherosclerosis of [place] co ronary artery without angina pectoris 06/23/2022 Claustrophobia 06/23/2022 PVD (peripheral vascular disease) 12/15/2021 COPD, group B, by GOLD 2017 classification 07/19 Overview: Per COPD GOLD Classification Encounter for antineoplastic chemotherapy 2020 Alcoholism in recovery 01/08/2021 Old DE (myocardial infarction) 12/10/2019 Moderate major depression 06/18/2019 [...] mRNA, LNP-s, No Pre serve, 2-Dose Series ([employer]) 04/14/2021,09/10/2020,08/13/2020 COVID-19, LNP-s, No Preserve , Tom-sucrose, [...] 10/10/2023 2:00 PM EDT Office Visit Otolaryngology [facility] [address] [address] Nish Glynn, DO [address] [place] [address] 10/13/2023 11:20 AM EDT Office Visit Family Practice 65 [facility] 293 [facility], [place] [address] Tanesha Ponce DO 293 [place] [address] 10/19/2023 10:40 AM EDT Office Visit Podiatry [facility] [address] [place] [address] Laura Owen, DPLyla [address] [facility] [place] [address] 03/12/2024 1:00 PM EDT Nurse Only Ancillary 65 [facility] 293 [facility], [place] [address] College, Nurse Annual Wellness Visit [address] [address] Scheduled Procedures Name Priority Associated Diagnoses Date/Ti [...] exists LUNG CANCER SCREENING - USE SMARTSET 92625 Completed 08/21/2020, 01/29/2020, 07/18/2019, Additional history exists [...] interpreted or resulted by a [facility] or [facility] contracted radiologist. Tanesha M Holencik DO RAD [...] the patient have Health Care Power of First Officer? No Full Code 04/11/2018 3:26 PM 04/13/2018 6:58 PM This order reflects the patients wishes and were consensually agreed upon. Question Answer Comments Discussion of Advance Directives occurred with: Patient Does the patient have a Living Will? No Does the patient have Health Care Power of First Officer? No Healthcare Agents on File Name Relationship Healthcare Agent Relationship Communication Davide Irvin [facility] er of First Officer [email or web address] Care Teams Card Mounter Relationship Specialty Start Date End Date Tanesha Ponce DO [address] [place] [address] PCP - General Family Medicine 02/12/23 documented as of this encounter
--- OUTSIDE RECORDS SUMMARY | 2023-09-26 21:31 | External Medical Summary ---
Author Name Unknown Address Unknown Organization [id number]:LABORATORY [facility] - [address] [facility] [address] Laboratory Report Ordering Provider Test Date Status JASON PAIGE 09/10/2023 04:58:57 Final <10,000 colonies/ml mixed no rmal saba Observation Date Value Abnormality Reference (Units ) Status Bacteria identified in Specimen by Culture 09/10/2023 04:58:57 [id number]^PROTEUS MIRABILIS Abnormal Final >100,000 colonies/mL Proteus mirabilis Performing Location LABORATORY [facility] - [address] [facility] [address] [facility] [address] Ordering Provider Test Date Status JASON PAIGE 09/10/2023 04:58:57 Final Observation Date Value Abnormality Reference (Units ) Status Ampicillin 09/10/2023 04:58:57 <=2 Susceptible Final Cefazolin 09/10/2023 04:58:57 <=4 Susceptible Final Cefepime susceptibility 09/10/2023 04:58:57 <=1 Susceptible Final Ceftriaxone suceptibility 09/10/2023 04:58:57 <=1 Susceptible Final Ciprofloxacin 09/10/2023 04:58:57 <=0.25 Susceptible Final Due to serious side effects, the FDA has advised against using Ciprofloxacin to treat uncomplicated UTIs and respiratory tract infections unless there are no alternative treatment options. Gentamicin susceptibility 09/10/2023 04:58:57 <=1 Susc eptible Final Piperacillin + Tazobactamsusceptibility 09/10/2023 04:58:57 <=4 Susceptible Final TMP-SMZ susceptibility 09/10/2023 04:58:57 <=20 Suscept ible Final Test: Culture, Urine, Quanti tative
Specimen Source: Urine, Unspecified
Specimen Type: Urine
Specimen Date: 09/10/2023 4:58 AM
Result Date: 09/12/2023 7:04 AM
Result Status: Final result
Abnormal: Yes
Resulting Lab: LABORATORY [facility]
[address]
[place] [address]

CULTURE

>100,000 colonies/mL Proteus mirabilis (Abnormal)

<10,000 colonies/ml mixed normal saba

SUSCEPTIBILITY

Proteus mirabilis
METHOD MICROBROTH
DILUTIONS

AMPICILLIN <=2 Susceptible
CEFAZOLIN <=4 Susceptible
CEFEPIME <=1 Susceptible
CEFTRIAXONE <=1 Susceptible
CIPROFLOXACIN <=0.25 Susceptible
GENTAMICIN <=1 Susceptible
PIPERACILLIN TAZOBACTAM <=4 Susceptible
TRIMETH/SULFAMETHOXAZOLE <=20 Susceptible

null Performing Location LABORATORY [facility] - [address] [facility] [place] [address]
--- OUTSIDE RECORDS SUMMARY | 2023-09-26 21:31 | External Medical Summary ---
Author Name Unknown Address Unknown Organization [id number]:[facility] [place] [address] [facility] [place] [address] Laboratory Report Ordering Provider Test Date Status JASON PAIGE 09/10/2023 04:58:57 Final Observation Date Value Abnormality Reference (Units) Status Color of Urine by Auto 09/10/2023 04:58:57 Yellow Colorless, Light Yellow, Yellow, Dark Yellow Final Clarity, Urine 09/10/2023 04:58:57 Slightly Cloudy Abnormal Clear Final Glucose [Mass/volume] in Urine by Automated test strip 09/10/2023 04:58:57 Negative Negative (mg/dL) Final Bilirubin.total [Presence] in Urine by Automated test strip 09/10/2023 04:58:57 Negative Negative Final Ketones [Mass/volume] in Urine by Automated test strip 09/10/2023 04:58:57 15 Abnormal Negative (mg/dL) Final Specific gravity, Urine 09/10/2023 04:58:57 >1.050 Above high normal 1.003-1.030 Final Hemoglobin [Presence] in Urine by Automated test strip 09/10/2023 04:58:57 Moderate Abnormal Negative Final pH, Urine 09/10/2023 04:58:57 6.0 5.0-7.5 (Units) Final Protein [Mass/volume] in Urine by Automated test strip 09/10/2023 04:58:57 30 Abnormal Negative (mg/dL) Final Urobilinogen [Mass/volume] in Urine by Automated test strip 09/10/2023 04:58:57 Normal Normal (mg/dL) Final Nitrite [Presence] in Urine by Automated test strip 09/10/2023 04:58:57 Negative Negative Final Leukocyte esterase [Presence] in Urine by Automated test strip 09/10/2023 04:58:57 Large Abnormal Negative Final RBC, Urine 09/10/2023 04:58:57 20-29 Abnormal 0-2 (/HPF) Final WBC, Urine 09/10/2023 04:58:57 50+ Abnormal 0-2 (/HPF) Final Bacteria [#/area] in Urine sediment by Microscopy high power field 09/10/2023 04:58:57 26-50 Abnormal 0-25 (/HPF) Final Epithelial cells.squamous [#/area] in Urine sediment by Microscopy high power field 09/10/2023 04:58:57 Many Abnormal None (/HPF) Final CULTURE, URINE - [facility] 09/10/2023 04:58:57 Final Quantitative urine culture t o be performed Performing Location [facility] [place] [address] [facility] [address]
--- OUTSIDE RECORDS SUMMARY | 2023-09-26 21:31 | External Medical Summary ---
Author Name Unknown Address Unknown Organization : Laboratory Report Ordering Provider Test Date Status JASON PAIGE 09/08/2023 02:06:00 Final Observation Date Value Abnormality Reference (Units ) Status Valproate Free [Mass/volume] in Serum or Plasma 09/08/2023 02:06:00 11.5 4.8-17.3 (mg/L) Final Note: Non-linear drug bindin g properties result in
the fraction of Free Valproic Acid increasing as
total drug increases. The free fraction may range from
5% to 25% for the total drug range of 30-160 mg/L. Valproic Acid, level 09/08/2023 02:06:00 61.2 50.0-100.0 (mg/L) Final
Test Performed at:
[facility]
[address]
[place] [address]
Kurt Saxena M.D., Ph.D.,Director of Laboratories Performing Location
--- OUTSIDE RECORDS SUMMARY | 2023-09-26 21:31 | External Medical Summary ---
Author Name Unknown Address Unknown Organization [id number]:[facility] [place] [address] [place] [address] Laboratory Report Ordering Provider Test Date Status JASON PAIGE 09/08/2023 02:06:00 Final Observation Date Value Abnormality Reference (Units ) Status Lactic Acid 09/08/2023 02:06:00 0.9 0.4-2.0 (mmol/L) Final Performing Location [facility] - [address] [place] [address]
--- OUTSIDE RECORDS SUMMARY | 2023-09-26 21:31 | External Medical Summary | Summary of Care ---
Author Name Unknown Organization [facility] Address [address] [facility] [place] [address] Phone [phone] Care Team Providers Care Personal Care Aid Name Role Phone Tanesha Ponce DO Primary Care Provider [phone] Reason for Visit * Reason Onset Date Comments Advice 09/11/2023 Rehab d/c Encounter Details Date Type Department Care Team (Late st Contact Info) Description 09/11/2023 Telephone Family Practice [address] [place] [address] [place] [phone] Tanesha Ponce DO [address] [place] [address] Advice (Rehab d/c) Allergies Active [...] brace To be evaluated by Tao at [facility] 1 Each 0 01/20/2022 Suspended Additional [...] MCG/ACT Inhalation Aerosol Powder Breath Activated (umeclidinium [place])Indicatio ns:Chronic respiratory failure with hypoxia (HCC) INHALE [...] CHAPO (generalized anxiety disorder) 08/01/2023 Atherosclerosis of [place] co ronary artery without angina pectoris 06/23/2022 Claustrophobia 06/23/2022 PVD (peripheral vascular disease) 12/15/2021 COPD, group B, by GOLD 2017 classification 07/19 Overview: Per COPD GOLD Classification Encounter for antineoplastic chemotherapy 2020 Alcoholism in recovery 01/08/[address] (myocardial infarction) 12/10/2019 Moderate major depression 06/18/2019 [...] mRNA, LNP-s, No Pre serve, 2-Dose Series ([employer]) 04/14/2021,09/10/2020,08/13/2020 COVID-19, LNP-s, No Preserve , Tom-sucrose, Ages 12+ (Pfizer) 12/21/2021 COVID-19, MRNA-LNP, 23-24, P F, 30 MCG/0.3 mL, 12 YRS AND ABOVE, IM (PFIZER-Comirnaty) 04/11/2023 Covid-19, Mrna, Lnp-s, Pf, B ivalent, 30 Mcg, IM, 12 yrs and above ([employer]) 04/12/2022 Pneumococcal Conjugate Vacc, 13 Valent (Prevnar) [...] He is asking someone call him at [phone] documented in this encounter Plan of Treatment Upcoming Encounters Date Type Department Care Team (Late st Contact Info) Description 10/03/2023 9:00 AM EDT Office Visit [facility] [place] [address] [place] [address] Nito Meeks MD [address] [place] [address] 10/10/2023 2:00 PM EDT Office Visit Otolaryngology [facility] [address] [place] [address] [address] Nish Glynn DO [address] [place] [address] 10/13/2023 11:20 AM EDT Office Visit Family Practice [address] [place] [address] [place] [address] Tanesha Ponce DO [address] [place] [address] 10/19/2023 10:40 AM EDT Office Visit Podiatry [facility] [place] [address] Laura Owen, [place] 132 [facility] [address] 03/12/2024 1:00 PM EDT Nurse Only Ancillary 65 [facility] [address] [place] [address] College, Nurse Annual Wellness Visit [address] [address] Health Maintenance Due Date Last Done Comments DXA Scan 1945 Alpha-1 Antitrypsin 1964 O2 ASSESSMENT COMPLETED IN PAST YEAR FOR COPD 09/08/2024 09/09/2023 DTaP,Tdap,and Td Vaccines (2 - Td or Tdap) 02/02/2028 02/01/2018 Pneumococcal Vaccine: 65+ Years Completed 05/04/2016, 05/10/2015, 04/22/2015, Additional history exists LUNG CANCER SCREENING - USE SMARTSET [address] Completed 08/21/2020, 01/29/2020, 07/18/2019, Additional history exists [...] the patient have Health Care Power of Middleware Engineer? No Full Code 04/11/2018 3:26 PM 04/13/2018 6:58 PM This order reflects the patients wishes and were consensually agreed upon. Question Answer Comments Discussion of Advance Directives occurred with: Patient Does the patient have a Living Will? No Does the patient have Health Care Power of Middleware Engineer? No Healthcare Agents on File Name Relationship Healthcare Agent Relationship Communication Davide Irvin [facility] er of Middleware Engineer [email or web address] Care Teams Personal Care Aid Relationship Specialty Start Date End Date Tanesha Ponce DO 293 [place] [address] PCP - General Family Medicine 02/12/23 documented as of this encounter
--- OUTSIDE RECORDS SUMMARY | 2023-09-26 21:31 | External Medical Summary ---
Author Name Unknown Address Unknown Organization K01:LABORATORY [facility] - [address] [place] [address] Laboratory Report Ordering Provider Test Date Status JASON PAIGE 09/10/2023 08:08:00 Final Observation Date Value Abnormality Reference (Units ) Status BUN 09/10/2023 08:08:00 23 Above high normal 6-20 (mg/dL) Final Creatinine 09/10/2023 08:08:00 0.8 0.5-1.0 (mg/dL) Final Glomerular filtration rate/1.73 sq M.predicted [Volume Rate/Area] in Serum, Plasma or Blood by Creatinine-based formula (CKD-EPI) 09/10/2023 08:08:00 77 >=60 (mL/min) Final eGFR is calculated based on the CKD-EPI 2020 equation Sodium 09/10/2023 08:08:00 142 135-146 (m mol/L) Final Potassium 09/10/2023 08:08:00 4.9 3.5-5.1 (m mol/L) Final Cl 09/10/2023 08:08:00 105 98-107 (mm ol/L) Final CO2 09/10/2023 08:08:00 30 22-32 (mmo l/L) Final Anion gap 09/10/2023 08:08:00 7 7-15 (mmol /L) Final Glucose 09/10/2023 08:08:00 95 70-120 (mg /dL) Final Calcium 09/10/2023 08:08:00 9.2 8.4-10.2 ( mg/dL) Final Performing Location LABORATORY [facility] - [address] [place] [address]
--- OUTSIDE RECORDS SUMMARY | 2023-09-26 21:31 | External Medical Summary ---
Author Name Unknown Address Unknown Organization K01:[facility] [place] [facility] [address] [facility] [address] Laboratory Report Ordering Provider Test Date Status GRECIADRCANDACE 09/11/2023 05:51:00 Final Observation Date Value Abnormality Reference (Units ) Status WBC, Total 09/11/2023 05:51:00 5.54 4.00-10.80 (K/uL) Final RBC 09/11/2023 05:51:00 3.34 3.85-5.15 (M/uL) Final Hemoglobin 09/11/2023 05:51:00 11.4 Below low normal 12.0-15.3 (g/dL) Final HCT 09/11/2023 05:51:00 35.1 Below low normal 36.0-45.2 (%) Final MCV 09/11/2023 05:51:00 105.1 81.5-97.5 (fL) Final MCH 09/11/2023 05:51:00 34.1 27.0-34.0 (pg) Final MCHC 09/11/2023 05:51:00 32.5 32.0-36.0 (g/dL) Final RDW 09/11/2023 05:51:00 12.7 11.5-15.5 (%) Final Platelets 09/11/2023 05:51:00 194 140-400 (K/uL) Final MPV 09/11/2023 05:51:00 9.1 6.6-11.1 (fL) Final Nucleated erythrocytes/100 leukocytes [Ratio] in Blood by Automated count 09/11/2023 05:51:00 0 <=0 (/100 WBCs) Final Performing Location [facility] [place] [address] [place] [address]
--- OUTSIDE RECORDS SUMMARY | 2023-09-26 21:31 | External Medical Summary ---
Author Name Unknown Address Unknown Organization K01:[facility]ORY [facility] [place] [facility] [address] [place] [address] Laboratory Report Ordering Provider Test Date Status JASON PAIGE 09/08/2023 02:06:00 Final Observation Date Value Abnormality Reference (Units ) Status BUN 09/08/2023 02:06:00 19 6-20 (mg/dL) Final Creatinine 09/08/2023 02:06:00 0.6 0.5-1.0 (mg/dL) Final Glomerular filtration rate/1.73 sq M.predicted [Volume Rate/Area] in Serum, Plasma or Blood by Creatinine-based formula (CKD-EPI) 09/08/2023 02:06:00 >90 >=60 (mL/min) Final eGFR is calculated based on the CKD-EPI 2020 equation Sodium 09/08/2023 02:06:00 141 135-146 (m mol/L) Final Potassium 09/08/2023 02:06:00 4.2 3.5-5.1 (m mol/L) Final Cl 09/08/2023 02:06:00 105 98-107 (mm ol/L) Final CO2 09/08/2023 02:06:00 25 22-32 (mmo l/L) Final Anion gap 09/08/2023 02:06:00 11 7-15 (mmol /L) Final Glucose 09/08/2023 02:06:00 103 70-120 (mg /dL) Final Calcium 09/08/2023 02:06:00 9.4 8.4-10.2 ( mg/dL) Final Performing Location LAB[facility]ORY [facility] - [address] [place] [address]
--- OUTSIDE RECORDS SUMMARY | 2023-09-26 21:31 | External Medical Summary ---
Author Name Unknown Address Unknown Organization K01:[facility] [place] [facility] [address] [place] [address] Laboratory Report Ordering Provider Test Date Status GRECIAJASON SILVEIRA 09/09/2023 06:20:00 Final Observation Date Value Abnormality Reference (Units ) Status WBC, Total 09/09/2023 06:20:00 7.47 4.00-10.80 (K/uL) Final RBC 09/09/2023 06:20:00 3.83 3.85-5.15 (M/uL) Final Hemoglobin 09/09/2023 06:20:00 13.0 12.0-15.3 (g/dL) Final HCT 09/09/2023 06:20:00 39.4 36.0-45.2 (%) Final MCV 09/09/2023 06:20:00 102.9 81.5-97.5 (fL) Final MCH 09/09/2023 06:20:00 33.9 27.0-34.0 (pg) Final MCHC 09/09/2023 06:20:00 33.0 32.0-36.0 (g/dL) Final RDW 09/09/2023 06:20:00 13.0 11.5-15.5 (%) Final Platelets 09/09/2023 06:20:00 181 140-400 (K/uL) Final MPV 09/09/2023 06:20:00 8.9 6.6-11.1 (fL) Final Nucleated erythrocytes/100 leukocytes [Ratio] in Blood by Automated count 09/09/2023 06:20:00 0 <=0 (/100 WBCs) Final Performing Location [facility] [place] [address] [place] [address]
--- OUTSIDE RECORDS SUMMARY | 2023-09-26 21:31 | External Medical Summary | Summary of Care ---
Author Name Unknown Organization [facility] Address [address] [facility] [place] [address] Phone [phone] Care Team Providers Care Municipal Court Judge Name Role Phone NarcisobhavaniTanesha saldana Primary Care Provider Encounter Details Date Type Department Care Team (Latest Contact Info) Description 09/07/2023 11:20 AM EDT - 09/07/2023 11:59 PM EDT Hospital Encounter Radiology Film File [address] [facility] [address] Arrived Discharge Disposition: Home - Self [...] brace To be evaluated by Tao at [facility] 1 Each 0 01/20/2022 Suspended Additional [...] MCG/ACT Inhalation Aerosol Powder Breath Activated (umeclidinium [place])Indicatio ns:Chronic respiratory failure with hypoxia (HCC) INHALE [...] CHAPO (generalized anxiety disorder) 08/01/2023 Atherosclerosis of [place] co ronary artery without angina pectoris 06/23/2022 [...] mRNA, LNP-s, No Pre serve, 2-Dose Series ([employer]) 04/14/2021,09/10/2020,08/13/2020 COVID-19, LNP-s, No Preserve , Tom-sucrose, [...] 10/10/2023 2:00 PM EDT Office Visit Otolaryngology [facility] [address] [address] Nish Glynn, DO [address] [place] [address] 10/13/2023 11:20 AM EDT Office Visit Family Practice 65 [facility] 293 [facility] [place] [address] Tanesha Pnoce DO 293 [facility] [address] 10/19/2023 10:40 AM EDT Office Visit Podiatry [facility] [address] [place] [address] Laura Owen, DPLyla [address] [facility] [place] [address] 03/12/2024 1:00 PM EDT Nurse Only Ancillary 65 [facility] 293 [facility], [place] [address] College, Nurse Annual Wellness Visit [address] [address] Scheduled Procedures Name Priority Associated Diagnoses Date/Ti [...] exists LUNG CANCER SCREENING - USE SMARTSET 312[address] Completed 08/21/2020, 01/29/2020, 07/18/2019, Additional history exists [...] interpreted or resulted by a [facility] or [facility] contracted radiologist. Tanesha M Holencik DO RAD [...] the patient have Health Care Power of Land Inspector? No Full Code 04/11/2018 3:26 PM 04/13/2018 6:58 PM This order reflects the patients wishes and were consensually agreed upon. Question Answer Comments Discussion of Advance Directives occurred with: Patient Does the patient have a Living Will? No Does the patient have Health Care Power of Land Inspector? No Healthcare Agents on File Name Relationship Healthcare Agent Relationship Communication Davide Irvin [facility] Health [facility] er of Land Inspector [email or web address] Care Teams Municipal Court Judge Relationship Specialty Start Date End Date Tanesha Ponce DO [address] [place] [address] PCP - General Family Medicine 02/12/23 documented as of this encounter
--- OUTSIDE RECORDS SUMMARY | 2023-09-26 21:31 | External Medical Summary ---
Author Name Unknown Address Unknown Organization K01:[facility] [place] [address] [facility] [address] Laboratory Report Ordering Provider Test Date Status JASON PAIGE 09/08/2023 01:33:04 Final SCREENING Observation Date Value Abnormality Reference (Units ) Status SARS Coronavirus 2 09/08/2023 01:33:04 Negative N egative Final 2019 Novel Coronavirus not d etected.

This express test was developed and its performance characteristics determined by [facility]. It has not been cleared or approved [...] (RT-PCR) test, or a Centers for Disease Control-acceptable equivalent. The test is performed in a high complexity Clinical Laboratory Improvement Amendments-(CLIA) certified laboratory. The test is acceptable for SARS-CoV-2 diagnosis, surveillance, and travel within the [place] and to most countries. Please check with local testing authorities about requirements before travel.

The validation of bronchial specimens, tracheal aspirates, and sputum for this assay was developed and performance characteristics determined by [facility]. The validation of alternate specimen types has not been cleared or approved by the U.S. Food and Drug Administration (FDA). It has been determined that such clearance is not necessary. Performing Location LAB[facility] [place] [facility] [address] [facility] [address]
[2023-09-26] MEDS: ACETAMINOPHEN 325 MG TAB PO PRN (21:44)
[2023-09-26] MEDS: DIVALPROEX EXTENDED RELEASE 250 MG TABCR PO SCH (21:44)
[2023-09-26] MEDS: DIVALPROEX EXTENDED RELEASE 500 MG TAB PO SCH (21:44)
[2023-09-27 06:25] LABS: Hematocrit (blood only) 33.1 % (37.0-47.0); Hemoglobin 10.8 g/dl (12.0-16.0); Mean Corpuscular Hemoglobin 34.1 pg (25.0-34.0); Mean Corpuscular Hgb Conc 32.6 g/dL (32.0-36.0); Mean Corpuscular Volume 104.4 fL (80.0-100.0); Mean Platelet Volume 9.4 fL (9.4-12.4); Platelet Count 169 K/uL (130-400); RDW Coefficient of Variation 13.6 % (11.5-14.5); RDW Standard Deviation 52.9 fL (36.4-46.3); Red Blood Count 3.17 M/uL (4.20-5.40); White Blood Count 7.83 K/ul (4.8-10.8)
[2023-09-27 06:36] LABS: Albumin Globulin Ratio 1.3 (0.9-2); Albumin Level 3.5 gm/dl (3.4-5.0); Bilirubin,Total 0.3 mg/dl (0.2-1.0); Calcium 8.7 mg/dl (8.6-10.3); Creatinine Clr Calc Pharmacy 51.8 ml/min; Est GFR (African American) 62.9 ml/min; Est GFR (Non-African American) 54.3 ml/min; Globulin 2.6 gm/dl (2.5-4.0); Phosphorus 4.3 mg/dl (2.5-4.9); Potassium 4.8 mmol/L (3.5-5.1); Total Protein 6.1 gm/dl (6.0-8.3)
[2023-09-27] MEDS: SODIUM CHLOR 7% 4 ML NEB NEB SCH (07:15)
[2023-09-27] MEDS: FLUTICASONE/VILANTEROL 200/25MCG 14 PUFFS/INHALER INH SCH (08:50)
[2023-09-27] MEDS: UMECLIDINIUM BROMIDE 62.5MCG/BLISTER 7 PUFFS/INHALER INH SCH (08:50)
[2023-09-27] MEDS: FUROSEMIDE 40 MG TAB PO SCH (08:51)
[2023-09-27] MEDS: DULoxetine HCL 20 MG CAP PO SCH (08:52)
[2023-09-27] MEDS: FERROUS SULFATE 325 MG TAB PO SCH (08:52)
[2023-09-27] MEDS: DOCUSATE SODIUM 100 MG CAP PO SCH (08:56)
--- OUTSIDE RECORDS SUMMARY | 2023-09-27 11:25 | External Medical Summary | Summary of Care ---
Author Name Unknown Organization [facility] Address [address] [place] [address] Phone [phone] Care Team Providers Care Drier Tender Naphthalene Name Role Phone Tanesha Ponce DO Primary Care Provider Reason for Visit * Reason Onset Date Comments Advice 09/26/2023 Encounter Details Date Type Department Care Team (Late st Contact Info) Description 09/26/2023 Telephone Family Practice [address], [place] [address] [place] [phone] Tanesha Ponce DO 293 [place] [address] Advice Allergies Active Allergy Reactions [...] [facility] 1 Each 0 01/20/2022 Active [...] MCG/ACT Inhalation Aerosol Powder Breath Activated (umeclidinium [place])Indication s:Chronic respiratory failure with hypoxia (HCC) INHALE [...] CHAPO (generalized anxiety disorder) 08/01/2023 Atherosclerosis of [place] co ronary artery without angina pectoris 06/23/2022 Claustrophobia 06/23/2022 PVD (peripheral vascular disease) 12/15/2021 COPD, group B, by GOLD 2017 classification 07/19 Overview: Per COPD GOLD Classification Encounter for antineoplastic chemotherapy 2020 Alcoholism in recovery 01/08/2021 Old [place] (myocardial infarction) 12/10/2019 Moderate major depression 06/18/2019 [...] mRNA, LNP-s, No Pre serve, 2-Dose Series ([employer]) 04/14/2021,09/10/2020,08/13/2020 COVID-19, LNP-s, No Preserve , Tom-sucrose, Ages 12+ (Pfizer) 12/21/2021 COVID-19, MRNA-LNP, 23-24, P F, 30 MCG/0.3 mL, 12 YRS AND ABOVE, IM ([employer]-Comirnat) 04/11/2023 Covid-19, Mrna, Lnp-s, Pf, B ivalent, 30 Mcg, IM, 12 yrs and above ([employer]) 04/12/2022 Pneumococcal Conjugate Vacc, 13 Valent (Prevnar) [...] Telephone Encounter - Tanesha Ponce DO - 09/26/2023 10:47 AM EDT Agree with ED evaluation. * Telephone Encounter - Clare Macias RN - 09/26/2023 10:42 AM EDT Pt's Davide calling back-states ambulance is there and have pt up in a wheelchair-O2 level 92-93%. States they said they hear abnormal lung sounds, especially when coughing. Asking if she should still go to the ER. Spoke with Dr Ponce and she definietly feels she should go to the ER. notified and agreeable. * Telephone Encounter - Clare Perez LPN - 09/26/2023 10:00 AM EDT Patient came home from hospital Monday, patient continues to cough. Not able to rest, does have appt today Oxygen at 3 LPM currently is out of breath--pulse is now 88 on 3 LPM Denies chest pain currently. Offered to call ems patient spouse said he would do so. Thank you documented in this encounter Plan of Treatment Upcoming Encounters Date Type Department Care Team (Late st Contact Info) Description 09/26/2023 3:20 PM EDT Pharmacy Family Practice 65 [facility] 293 [place] [phone] College, Pharmacist [address] [place] [address] 09/26/2023 3:40 PM EDT Office Visit Family Practice 65 [facility] 293 [facility], [place] [phone] Tanesha Ponce, DO 293 [place] [address] 10/10/2023 2:00 PM EDT Office Visit Otolaryngology [facility] [address] [facility] [place] [address] Nish Glynn, DO 132 [facility] [address] 10/11/2023 10:40 AM EDT Office Visit Family Practice 65 [facility] 293 [facility], [place] [phone] Tanesha Ponce, DO 293 [facility] [place] [address] 10/19/2023 10:40 AM EDT Office Visit Podiatry [facility] [address] [place] [address] Laura Owen DPM [address] [place] [address] 10/25/2023 10:40 AM EDT [facility] [address] [place] [address] Karena Ford PA-C [address] [place] [address] 12/12/2023 11:00 AM EDT Office Visit Gustavo, Dina [address] [place] [address] Nito Meeks MD [address] [place] [address] 03/12/2024 1:00 PM EDT Nurse Only Ancillary [address], [place] [address] [place] [address] College, Nurse Annual Wellness Visit [address] [facility] [address] [place] [address] Health Maintenance Due Date Last Done Comments [...] the patient have Health Care Power of Spiral Winder? No Full Code 04/11/2018 3:26 PM 04/13/2018 6:58 PM This order reflects the patients wishes and were consensually agreed upon. Question Answer Comments Discussion of Advance Directives occurred with: Patient Does the patient have a Living Will? No Does the patient have Health Care Power of Spiral Winder? No Healthcare Agents on File Name Relationship Healthcare Agent Relationship Communication Davide Irvin Vinnytej Spouse Health Care [facility] er of Spiral Winder [email or web address] Care Teams Drier Tender Naphthalene Relationship Specialty Start Date End Date Tanesha Ponce DO [address] [place], [place] [address] [address] PCP - General Family Medicine 02/12/23 documented as of this encounter
--- OUTSIDE RECORDS SUMMARY | 2023-09-27 11:25 | External Medical Summary | Summary of Care ---
Author Name Unknown Organization [facility] Address [address] [place] [address] Phone [phone] Care Team Providers Care Cable Tender Name Role Phone Tanesha Ponce DO Primary Care Provider Reason for Visit * Reason Onset Date Comments Advice 09/26/2023 Encounter Details Date Type Department Care Team (Late st Contact Info) Description 09/26/2023 Telephone Family Practice 65 [facility] [place] [address] [place] [phone] Tanesha Ponce DO [address] [place] [address] Advice Allergies Active Allergy Reactions [...] brace To be evaluated by Tao at [facility] 1 Each 0 01/20/2022 Active diazePAM 10 [...] MCG/ACT Inhalation Aerosol Powder Breath Activated (umeclidinium [place])Indication s:Chronic respiratory failure with hypoxia (HCC) INHALE [...] CHAPO (generalized anxiety disorder) 08/01/2023 Atherosclerosis of [place] co ronary artery without angina pectoris 06/23/2022 Claustrophobia 06/23/2022 PVD (peripheral vascular disease) 12/15/2021 COPD, group B, by GOLD 2017 classification 07/19 Overview: Per COPD GOLD Classification Encounter for antineoplastic chemotherapy 2020 Alcoholism in recovery 01/08/2021 Old [place] (myocardial infarction) 12/10/2019 Moderate major depression 06/18/2019 [...] mRNA, LNP-s, No Pre serve, 2-Dose Series ([employer]) 04/14/2021,09/10/2020,08/13/2020 COVID-19, LNP-s, No Preserve , Tom-sucrose, Ages 12+ (Pfizer) 12/21/2021 COVID-19, MRNA-LNP, 23-24, P F, 30 MCG/0.3 mL, 12 YRS AND ABOVE, IM ([employer]-Comirnat) 04/11/2023 Covid-19, Mrna, Lnp-s, Pf, B ivalent, 30 Mcg, IM, 12 yrs and above ([employer]) 04/12/2022 Pneumococcal Conjugate Vacc, 13 Valent (Prevnar) [...] Family Practice 65 [facility] 293 [place] [phone] College, Pharmacist [address] [place] [address] 09/26/2023 3:40 PM EDT Office Visit Family Practice 65 [facility] 293 [facility], [place] [phone] Tanesha Ponce, DO 293 [place] [address] 10/10/2023 2:00 PM EDT Office Visit Otolaryngology [facility] [address] [facility] [place] [address] Nish Glynn, DO 132 [facility] [address] 10/11/2023 10:40 AM EDT Office Visit Family Practice 65 [facility] 293 [facility], [place] [phone] Tanesha Ponce, DO 293 [place] [address] 10/19/2023 10:40 AM EDT Office Visit Podiatry [facility] [address] [place] [address] Laura Owen DPM [address] [place] [address] 10/25/2023 10:40 AM EDT Office [facility] [address] [place] [address] Karena Ford PA-C [address] [place] [address] 12/12/2023 11:00 AM EDT Office Visit Gustavo, Dina [address] [place] [address] Nito Meeks MD [address] [place] [address] 03/12/2024 1:00 PM EDT Nurse Only Ancillary [address] [place] [address] [place] [address] College, Nurse Annual Wellness Visit [address] [facility] [address] [place] [address] Health Maintenance Due Date Last Done Comments [...] the patient have Health Care Power of Industrial Fabric Cutter? No Full Code 04/11/2018 3:26 PM 04/13/2018 6:58 PM This order reflects the patients wishes and were consensually agreed upon. Question Answer Comments Discussion of Advance Directives occurred with: Patient Does the patient have a Living Will? No Does the patient have Health Care Power of Industrial Fabric Cutter? No Healthcare Agents on File Name Relationship Healthcare Agent Relationship Communication Davide Irvin Vinnytej Spouse Health Care [facility] er of Industrial Fabric Cutter [email or web address] Care Teams Cable Tender Relationship Specialty Start Date End Date Tanesha Ponce DO [address] [place], [place] [address], [place] [address] PCP - General Family Medicine 02/12/23 documented as of this encounter
--- OUTSIDE RECORDS SUMMARY | 2023-09-27 11:25 | External Medical Summary | Summary of Care ---
Author Name Unknown Organization [facility] Address [address] [place] [address] Phone [phone] Care Team Providers Care Metal Furnace Operator Name Role Phone Tanesha Ponce DO Primary Care Provider [phone] Reason for Visit * Reason Onset Date Comments Advice 09/26/2023 Encounter Details Date Type Department Care Team (Late st Contact Info) Description 09/26/2023 Telephone Family Practice 65 [facility], [place] [address] [place] [phone] Tanesha Ponce DO [address] [place] [address] Advice Allergies Active Allergy Reactions [...] brace To be evaluated by Tao at [facility] 1 Each 0 01/20/2022 Active diazePAM 10 [...] MCG/ACT Inhalation Aerosol Powder Breath Activated (umeclidinium [place])Indication s:Chronic respiratory failure with hypoxia (HCC) INHALE [...] CHAPO (generalized anxiety disorder) 08/01/2023 Atherosclerosis of [place] co ronary artery without angina pectoris 06/23/2022 [...] mRNA, LNP-s, No Pre serve, 2-Dose Series (Right [employer]) 04/14/2021,09/10/2020,08/13/2020 COVID-19, LNP-s, No Preserve , Tom-sucrose, Ages 12+ (Pfizer) 12/21/2021 COVID-19, MRNA-LNP, 23-24, P F, 30 MCG/0.3 mL, 12 YRS AND ABOVE, IM ([employer]ies-Comirnat) 04/11/2023 Covid-19, Mrna, Lnp-s, Pf, B ivalent, 30 Mcg, IM, 12 yrs and above (Right Relevance) 04/12/2022 Pneumococcal Conjugate Vacc, 13 Valent (Prevnar) [...] AM EDT Call received from Duncan from [facility] Home Health-states had received a [...] 3:20 PM EDT Pharmacy Family Practice 65 [facility] 293 [facility] [place] [phone] College, Pharmacist [address] [place] [address] 09/26/2023 3:40 PM EDT Office Visit Family Practice 65 [facility] 293 [facility] [place] [address] Tanesha Ponce, DO 293 [place] [address] 10/10/2023 2:00 PM EDT Office Visit Otolaryngology [facility] 132 [facility] [place] [address] Nish Glynn, DO 132 [place] [address] 10/11/2023 10:40 AM EDT Office Visit Family Practice 65 [facility] 293 [facility] [place] [phone] Tanesha Ponce, DO 293 [place] [address] 10/19/2023 10:40 AM EDT Office Visit Podiatry [facility] 132 [place] [address] Laura Owen, DPM 132 [place] [address] 10/25/2023 10:40 AM EDT Office [facility] [address] [place], [place] [address] Karena Ford PA-C [address] [place], [place] [address] 12/12/2023 11:00 AM EDT Office Visit Neurosurgery, [place] [address] [place] [address] Nito Meeks MD [address] [place], [place] [phone] 03/12/2024 1:00 PM EDT Nurse Only Ancillary [address], [place] 293 [facility] [place] [address] College, Nurse Annual Wellness Visit [address] 293 [facility] [place] [address] Health Maintenance Due Date Last Done Comments [...] the patient have Health Care Power of Peanut Farmer? No Full Code 04/11/2018 3:26 PM 04/13/2018 6:58 PM This order reflects the patients wishes and were consensually agreed upon. Question Answer Comments Discussion of Advance Directives occurred with: Patient Does the patient have a Living Will? No Does the patient have Health Care Power of Peanut Farmer? No Healthcare Agents on File Name Relationship Healthcare Agent Relationship Communication Davide Irvin Priscaedin [facility] er of Peanut Farmer [email or web address] Care Teams Metal Furnace Operator Relationship Specialty Start Date End Date Tanesha Ponce DO [address] [place] [address] PCP - General Family Medicine 02/12/23 documented as of this encounter
[2023-09-27] MEDS: CLOBAZAM 20 MG PO SCH (11:28)
--- NOTE | 2023-09-27 16:40 | Hospitalist Progress Note ---
Date of Service September 27, 2023 Assessment & Plan (1) Chronic respiratory failure with hypoxia: Plan: Acute on chronic hypoxemia respiratory failure: COPD exacerbation and is complicated by Parainfluenza 3: No leukocytosis however given the complexity of her background and frail presentation will place on Rocephin plus azithromycin and adjust based on blood and sputum culture results Sputum Gram stain is showing few epithelial cells, moderate polys rare gram- negative bacilli and moderate gram-positive cocci, culture pending Received Lasix 40 mg in ED for mild congestion Methylprednisone 125 given in ED; continue Solu-Medrol 40 mg every 8 IV Guaifenesin with codeine for symptom management Has been getting intravenous ceftriaxone and azithromycin for possible infective exacerbation on top of parainfluenza Aspiration precautions Droplet precautions Incentive spirometry and flutter valve for supportive measures Clinically better and he still has cough Will need PT and OT evaluation (2) Infection due to parainfluenza virus 3: Plan: As above Symptomatic management (3) Seizure disorder: Plan: Seizure disorder: Chronic Takes Keppra 1500 mg PO BID Recently started on Onfi at [place] 15 mg twice daily See above for further details from [place] admission No more seizures (4) Atrial fibrillation: Plan: A-fib: On anticoagulation: History of DVT: Chronic-rate is controlled Takes Metoprolol; continue Ultrasound did not show any evidence of DVTs (5) History of DVT (deep vein thrombosis): (6) Obesity (BMI 30.0-34.9): (7) residential current use of anticoagulants with INR goal of 2.0-3.0: (8) COPD (chronic obstructive pulmonary disease): (9) AA (alcohol abuse): (10) AVM (arteriovenous malformation) brain: (11) Generalized weakness: Plan Ms. Godinez is a 78 year old female that presents to the ED with cough and SOB that started on Monday night after she recently returned home from being discharged from [facility] rehab on Saturday 09/23. Prior to her [facility] admission she was transferred to [facility] from [facility] after experiencing aphagia which was suspected to be secondary to her seizure history; she was transferred for continuos EEG. 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 Patient recently completed a 3-day course of Rocephin for treatment of UTI. Today she presents with shortness of breath SpO2 86 to 88%; wears 2 L supplemental O2 at home at baseline. Chest x-ray negative for acute cardiopulmonary disease. EKG without ischemic changes. Bio fire positive for parainfluenza 3. Patient has a known history of chronic hypoxemia respiratory failure. Additional past medical history includes COPD, PAD, history of seizure s, history of AVM, A-fib not on anticoagulation, history of GIB, and history of DVT (not on any anticoagulation). Has followed with pulmonary in the past. No leukocytosis, otherwise electrolytes unremarkable, LFTs negative, BNP negative, troponin negative. Chest x-ray negative for acute cardiopulmonary disease however visual sensation of imaging is unavailable at the moment. EKG without ischemic changes. Patient denies headache, dizziness, lightheadedness, visual or auditory changes, chest pain, palpitations, abdominal pain or tenderness, nausea, vomiting, diarrhea. On examination patient appears frail and ill. Patient able to speak in complete sentences and is AAO x 4 but visibly weak and coughing persistently. Intermittent sounds of stridor. Bilateral lower extremities grossly swollen +4 pitting edema. Right calf tender. With known history of DVT which she reports has been years low threshold to add chest CT. Patient will be admitted for further evaluation and management of chronic hypoxemia respiratory failure in the setting of parainfluenza 3. Placed on droplet precautions, will add azithromycin plus Rocephin for broad-spectrum coverage and adjust based on blood and sputum culture results, continue IV steroids 40 mg Q8, add Mucinex, continuous O2, flutter valve and ISB for supportive treatment,will obtain bilateral Doppler ultrasound LE, PT/OT for con tinued rehabilitation. Disposition: PCP Dr. Ponce CODE STATUS: Full code VTE prophylaxis: Teds and SCDs for now Admission and Anticipated Discharge Date Admission Date: September 26, 2023 Subjective 09/27/2023 The patient is seen and examined in telemetry unit She has been complaining of cough but no shortness of breath at rest Has been requiring 4 L to maintain saturation Denies any chest pain and palpitation No abdominal pain nausea and vomiting Review of Systems Review of Systems: All systems reviewed and are unremarkable except as noted below Physical Exam Physical Exam: Lying in bed with acute distress due to cough Constitutional: well developed, well nourished, + ill appearing and + obese Eyes: PERRL, conjunctivae normal, anicteric sclerae ENMT: external ear and nose normal, oropharynx normal Neck: trachea midline, no thyromegaly Respiratory: + respiratory distress Auscultation: + diminished lung sounds, + crackles and + wheezes Cardiovascular: Rate/Rhythm: regular rate and regular rhythm Heart Sounds: normal S1 and normal S2; no murmur Extremities: + edema (Trace edema bilaterally) Gastrointestinal (Abdomen): Inspection/Auscultation: normal bowel sounds; abdomen not distended Percussion/Palpation: abdomen soft; abdomen nontender Musculoskeletal: No acute arthritis involving any of the joint Neurologic: normal touch/pain/proprioception, moves all extremities (Has foot drop on the right side) and + focal motor deficit (Dropfoot on the right side) Psychiatric: A+Ox3, euthymic affect Lymphatic: no cervical or axillary lymphadenopathy Results & Data Results & Data Vital Signs (Past 12 Hours) Vital Signs Temp Pulse Pulse Resp BP Pulse Ox O2 Del Method 09/27/23 15:54 36.6 C 69 18 110/66 93 Nasal Cannula 09/27/23 11:30 36.7 C 71 20 98/59 L 95 Nasal Cannula 09/27/23 10:33 Nasal Cannula 09/27/23 07:40 36.8 C 75 22 123/60 95 Nasal Cannula 09/27/23 07:38 68 09/27/23 07:16 82 18 95 Nasal Cannula O2 Flow Rate 09/27/23 15:54 4 09/27/23 11:30 4 09/27/23 10:33 4 09/27/23 07:40 4 09/27/23 07:38 09/27/23 07:16 4 Laboratory Results Short CBC 09/27/23 Range/Units 05:29 WBC 7.83 (4.8-10.8) K/ul Hgb 10.8 L (12.0-16.0) g/dl Hct 33.1 L (37.0-47.0) % Plt Count 169 (130-400) K/uL BMP 09/27/23 05:29 Sodium 141 Potassium 4.8 Chloride 100 Carbon Dioxide 35 H BUN 26 H Creatinine 1.00 Glucose 150 H Calcium 8.7 Liver Function 09/27/23 Range/Units 05:29 Total Bilirubin 0.3 (0.2-1.0) mg/dl AST 21 (13-39) U/L ALT 13 (7-52) U/L Alkaline Phosphatase 38 (34-104) U/L Albumin 3.5 (3.4-5.0) gm/dl Urine 09/26/23 Range/Units 15:45 Urine Color Yellow Urine Appearance Clear (Clear) Urine pH 6.0 (4.5-7.5) Ur Specific [place] 1.008 (1.000-1.030) Urine Protein Negative (Negative) Urine Glucose (UA) Negative (Negative) Medications Administered Current Inpatient Medications Acetaminophen (Acetaminophen 325 Mg Tab) 650 mg PO Q4H PRN PRN Reason: Pain or Fever Stop: 10/26/23 14:14 Last Admin: 09/27/23 08:57 Dose: 650 mg Al Hydrox/Mg Hydrox/Simethicone (Aluminum/Magnesium Susp 30 Ml Udc) 15 ml PO Q4H PRN PRN Reason: Dyspepsia Stop: 10/26/23 14:14 Clobazam (Clobazam 20mg Tab [Patient Own Med]) 0.75 each PO DAILY [facility] Stop: 10/27/23 11:29 Last Admin: 09/27/23 11:28 Dose: 0.75 each Divalproex Sodium (Divalproex Extended Release 500 Mg Tab) 500 mg PO BID [facility] Stop: 10/26/23 20:59 Last Admin: 09/27/23 08:51 Dose: 500 mg Divalproex Sodium (Divalproex Extended Release 250 Mg Tabcr) 250 mg PO BID [facility]ILY Stop: 10/26/23 20:59 Last Admin: 09/27/23 08:51 Dose: 250 mg Docusate Sodium (Docusate Sodium 100 Mg Cap) 0 mg PO QAM [facility]ILY Stop: 10/27/23 08:59 Last Admin: 09/27/23 08:56 Dose: 100 mg Duloxetine HCl (Duloxetine Hcl 20 Mg Cap) 20 mg PO QAM [facility] Stop: 10/27/23 08:59 Last Admin: 09/27/23 08:52 Dose: 20 mg Ferrous Sulfate (Ferrous Sulfate 325 Mg Tab) 325 mg PO DAILY MILY Stop: 10/27/23 08:59 Last Admin: 09/27/23 08:52 Dose: 325 mg Fluticasone/Vilanterol (Fluticasone/Vilanterol 200/25mcg 14 Puffs/Inhaler) 1 puffs INH QAM [facility]ILY Stop: 10/27/23 08:59 Last Admin: 09/27/23 08:50 Dose: 1 puffs Furosemide (Furosemide 40 Mg Tab) 40 mg PO DAILY [facility] Stop: 10/27/23 08:59 Last Admin: 09/27/23 08:51 Dose: 40 mg Guaifenesin/Codeine Phosphate (Guaifenesin/Codeine 200mg/20mg 10ml Udc) 10 ml PO Q6H PRN PRN Reason: Cough Stop: 10/26/23 19:10 Last Admin: 09/27/23 10:26 Dose: 10 ml Azithromycin 500 mg/ Dextrose 255 mls @ 127.5 mls/hr IV Q24H [facility] Stop: 10/03/23 16:29 Last Infusion: 09/26/23 19:49 Dose: Infused Methylprednisolone 40 mg/ (Syringe) 0.64 mls @ 1.5 mls/min IV Q8H [facility] Stop: 10/26/23 19:59 Last Admin: 09/27/23 11:28 Dose: 1.5 mls/min Ceftriaxone Sodium 2,000 mg/ (Dextrose) 50 mls @ 100 mls/hr IV Q24H MILY; Prot ocol Stop: 10/03/23 19:29 Last Infusion: 09/26/23 22:32 Dose: Infused Levetiracetam (Levetiracetam 500 Mg Tab) 1,500 mg PO BID [facility] Stop: 10/26/23 20:59 Last Admin: 09/27/23 08:51 Dose: 1,500 mg Lorazepam (Lorazepam 1 Mg Tab) 1 mg PO Q5M PRN PRN Reason: as needed for seizure Stop: 10/26/23 19:12 Magnesium Hydroxide (Magnesium Hydroxide Susp 30 Ml Udc) 30 ml PO Q12H PRN PRN Reason: Constipation Stop: 10/26/23 14:14 Metoprolol Succinate (Metoprolol Succ 25mg Ext Rel Tab) 25 mg PO QDD PRN PRN Reason: SBP >=100 Stop: 10/26/23 19:12 Ondansetron HCl (Ondansetron Inj 2 Mg/Ml 2 Ml Vial) 4 mg IV Q6H PRN PRN Reason: Nausea Stop: 10/26/23 14:14 Polyethylene Glycol (Polyethylene (Miralax) 17 Gm Pack) 17 gm PO DAILY PRN PRN Reason: Constipation Stop: 10/26/23 14:14 Sodium Chloride (Sodium Chlor 7% 4 Ml Neb) 4 ml NEB BIDR [facility] Stop: 10/27/23 06:59 Last Admin: 09/27/23 07:15 Dose: 4 ml Umeclidinium [place] (Umeclidinium [place] 62.5mcg/Blister 7 Puffs/Inhaler) 1 puffs INH QAM [facility] Stop: 10/27/23 08:59 Last Admin: 09/27/23 08:50 Dose: 1 puffs (4) Atrial fibrillation Atrial fibrillation type: unspecified Qualified Code(s): I48.91 - Unspecified atrial fibrillation
[2023-09-27] MEDS: traMADol HCL 50 MG TABLET PO PRN (21:45)
[2023-09-28 06:32] LABS: Basophils # (auto) 0.01 K/uL (0.00-0.20); Basophils % (auto) 0.1 %; Hematocrit (blood only) 33.9 % (37.0-47.0); Hemoglobin 11.3 g/dl (12.0-16.0); Immature Granulocytes # (auto) 0.04 K/uL (0.01-0.20); Immature Granulocytes % (auto) 0.5 %; Lymphocytes % (auto) 12.5 %; Mean Corpuscular Hemoglobin 33.8 pg (25.0-34.0); Mean Corpuscular Hgb Conc 33.3 g/dL (32.0-36.0); Mean Corpuscular Volume 101.5 fL (80.0-100.0); Mean Platelet Volume 9.6 fL (9.4-12.4); Monocytes # (auto) 0.58 K/uL (0.11-0.59); Monocytes % (auto) 7.2 %; Neutrophils % (auto) 79.7 %; Platelet Count 188 K/uL (130-400); RDW Coefficient of Variation 13.3 % (11.5-14.5); RDW Standard Deviation 49.9 fL (36.4-46.3); Red Blood Count 3.34 M/uL (4.20-5.40); White Blood Count 8.03 K/ul (4.8-10.8)
[2023-09-28 06:46] LABS: BUN Creatinine Ratio 37.5 (10-20); Calcium 8.8 mg/dl (8.6-10.3); Creatinine Clr Calc Pharmacy 72.3 ml/min; Est GFR (African American) 93.6 ml/min; Est GFR (Non-African American) 80.8 ml/min; Potassium 4.3 mmol/L (3.5-5.1)
--- NOTE | 2023-09-28 14:07 | Hospitalist Progress Note ---
Date of Service September 28, 2023 Assessment & Plan (1) Chronic respiratory failure with hypoxia: Plan: Acute on chronic hypoxemia respiratory failure: COPD exacerbation and is complicated by Parainfluenza 3: No leukocytosis however given the complexity of her background and frail presentation will place on Rocephin plus azithromycin and adjust based on blood and sputum culture results Sputum Gram stain is showing few epithelial cells, moderate polys rare gram- negative bacilli and moderate gram-positive cocci, culture pending Received Lasix 40 mg in ED for mild congestion Methylprednisone 125 given in ED; continue Solu-Medrol 40 mg every 8 IV Guaifenesin with codeine for symptom management Has been getting intravenous ceftriaxone and azithromycin for possible infective exacerbation on top of parainfluenza Aspiration precautions Droplet precautions Incentive spirometry and flutter valve for supportive measures Clinically better and he still has cough Will need PT and OT evaluation-recommended rehab Clinically better with only minimal cough and minimal shortness of breath at rest Awaiting placement (2) Infection due to parainfluenza virus 3: Plan: As above Symptomatic management (3) Seizure disorder: Plan: Seizure disorder: Chronic Takes Keppra 1500 mg PO BID Recently started on Onfi at [place] 15 mg twice daily See above for further details from [place] admission No more seizures Right foot drop Secondary to grand mal seizure about 6 years back (4) Atrial fibrillation: Plan: A-fib: Not on any anticoagulation due to AVMs in brain Not On anticoagulation: History of DVT: Chronic-rate is controlled Takes Metoprolol; continue Ultrasound did not show any evidence of DVTs (5) History of DVT (deep vein thrombosis): (6) Obesity (BMI 30.0-34.9): (7) [facility] current use of anticoagulants with INR goal of 2.0-3.0: (8) COPD (chronic obstructive pulmonary disease): (9) AA (alcohol abuse): (10) AVM (arteriovenous malformation) brain: (11) Generalized weakness: Plan Ms. Godinez is a 78 year old female that presents to the ED with cough and SOB that started on Monday night after she recently returned home from being discharged from [facility] rehab on Saturday 09/23. Prior to her [facility] admission she was transferred to [facility] [place] from [facility] after experiencing aphagia which was suspected to be secondary to her seizure history; she was transferred for continuos EEG. 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 Patient recently completed a 3-day course of Rocephin for treatment of UTI. Today she presents with shortness of breath SpO2 86 to 88%; wears 2 L supplemental O2 at home at baseline. Chest x-ray negative for acute cardiopulmonary disease. EKG without ischemic changes. Bio fire positive for parainfluenza 3. Patient has a known history of chronic hypoxemia respiratory failure. Additional past medical history includes COPD, PAD, history of seizures, history of AVM, A-fib not on anticoagulation, history of GIB, and history of DVT (not on any anticoagulation). Has followed with pulmonary in the past. No leukocytosis, otherwise electrolytes unremarkable, LFTs negative, BNP negative, troponin negative. Chest x-ray negative for acute cardiopulmonary disease however visual sensation of imaging is unavailable at the moment. EKG without ischemic changes. Patient denies headache, dizziness, lightheadedness, visual or auditory changes, chest pain, palpitations, abdominal pain or tenderness, nausea, vomiting, diarrhea. On examination patient appears frail and ill. Patient able to speak in complete sentences and is AAO x 4 but visibly weak and coughing persistently. Intermittent sounds of stridor. Bilateral lower extremities grossly swollen +4 pitting edema. Right calf tender. With known history of DVT which she reports has been years low threshold to add chest CT. Patient will be admitted for further evaluation and management of chronic hypoxemia respiratory failure in the setting of parainfluenza 3. Placed on droplet precautions, will add azithromycin plus Rocephin for broad-spectrum coverage and adjust based on blood and sputum culture results, continue IV steroids 40 mg Q8, add Mucinex, continuous O2, flutter valve and ISB for supportive treatment,will obtain bilateral Doppler ultrasound LE, PT/OT for continued rehabilitation. Disposition: PCP Dr. Ponce CODE STATUS: Full code VTE prophylaxis: Teds and SCDs for now Admission and Anticipated Discharge Date Admission Date: September 26, 2023 Subjective 09/27/2023 The patient is seen and examined in telemetry unit She has been complaining of cough but no shortness of breath at rest Has been requiring 4 L to maintain saturation Denies any chest pain and palpitation No abdominal pain nausea and vomiting 07/30/2023 The patient was seen and examined in telemetry unit She has been feeling little better with decreasing cough and shortness of breath She has been saturating normally on 2 L of nasal cannula oxygen She has had physical therapy and recommended rehab Review of Systems Review of Systems: All systems reviewed and are unremarkable except as noted below Physical Exam Physical Exam: Lying in bed with acute distress due to cough Constitutional: well developed, well nourished, + ill appearing and + obese Eyes: PERRL, conjunctivae normal, anicteric sclerae ENMT: external ear and nose normal, oropharynx normal Neck: trachea midline, no thyromegaly Respiratory: + respiratory distress Auscultation: + diminished lung sounds, + crackles and + wheezes Cardiovascular: Rate/Rhythm: regular rate and regular rhythm Heart Sounds: normal S1 and normal S2; no murmur Extremities: + edema (Trace edema bilaterally) Gastrointestinal (Abdomen): Inspection/Auscultation: normal bowel sounds; abdomen not distended Percussion/Palpation: abdomen soft; abdomen nontender Musculoskeletal: No acute arthritis involving of the joint but she does have foot drop on the right side Neurologic: normal touch/pain/proprioception, moves all extremities (Has foot drop on the right side) and + focal motor deficit (Dropfoot on the right side) Psychiatric: A+Ox3, euthymic affect Lymphatic: no cervical or axillary lymphadenopathy Results & Data Results & Data Vital Signs (Past 12 Hours) Vital Signs Temp Pulse Pulse Pulse Resp BP BP 09/28/23 11:43 36.5 C 72 18 109/64 09/28/23 10:19 09/28/23 07:54 36.4 C L 68 20 141/74 H 09/28/23 07:12 59 L 09/28/23 07:03 66 18 09/28/23 03:18 36.4 C L 67 18 129/70 Pulse Ox O2 Del Method O2 Flow Rate 09/28/23 11:43 98 Nasal Cannula 2 09/28/23 10:19 Nasal Cannula 2 09/28/23 07:54 97 Nasal Cannula 2 09/28/23 07:12 09/28/23 07:03 96 Nasal Cannula 2 09/28/23 03:18 94 Nasal Cannula 2.5 Laboratory Results Short CBC 09/28/23 Range/Units 05:25 WBC 8.03 (4.8-10.8) K/ul Hgb 11.3 L (12.0-16.0) g/dl Hct 33.9 L (37.0-47.0) % Plt Count 188 (130-400) K/uL BMP 09/28/23 05:25 Sodium 135 L Potassium 4.3 Chloride 96 L Carbon Dioxide 33 H BUN 27 H Creatinine 0.72 Glucose 123 H Calcium 8.8 Medications Administered Current Inpatient Medications Acetaminophen (Acetaminophen 325 Mg Tab) 650 mg PO Q4H PRN PRN Reason: Pain or Fever Stop: 10/26/23 14:14 Last Admin: 09/27/23 21:15 Dose: 650 mg Al Hydrox/Mg Hydrox/Simethicone (Aluminum/Magnesium Susp 30 Ml Udc) 15 ml PO Q4H PRN PRN Reason: Dyspepsia Stop: 10/26/23 14:14 Clobazam (Clobazam 20mg Tab [Patient Own Med]) 0.75 each PO DAILY [facility] Stop: 10/27/23 11:29 Last Admin: 09/28/23 10:01 Dose: 0.75 each Divalproex Sodium (Divalproex Extended Release 500 Mg Tab) 500 mg PO BID [facility] Stop: 10/26/23 20:59 Last Admin: 09/28/23 09:30 Dose: 500 mg Divalproex Sodium (Divalproex Extended Release 250 Mg Tabcr) 250 mg PO BID [facility] Stop: 10/26/23 20:59 Last Admin: 09/28/23 09:30 Dose: 250 mg Docusate Sodium (Docusate Sodium 100 Mg Cap) 0 mg PO QAM [facility] Stop: 10/27/23 08:59 Last Admin: 09/28/23 10:01 Dose: 100 mg Duloxetine HCl (Duloxetine Hcl 20 Mg Cap) 20 mg PO QAM [facility] Stop: 10/27/23 08:59 Last Admin: 09/28/23 09:30 Dose: 20 mg Ferrous Sulfate (Ferrous Sulfate 325 Mg Tab) 325 mg PO DAILY [facility] Stop: 10/27/23 08:59 Last Admin: 09/28/23 09:30 Dose: 325 mg Fluticasone/Vilanterol (Fluticasone/Vilanterol 200/25mcg 14 Puffs/Inhaler) 1 puffs INH QAM [facility] Stop: 10/27/23 08:59 Last Admin: 09/28/23 09:31 Dose: 1 puffs Furosemide (Furosemide 40 Mg Tab) 40 mg PO DAILY [facility] Stop: 10/27/23 08:59 Last Admin: 09/28/23 09:31 Dose: 40 mg Guaifenesin/Codeine Phosphate (Guaifenesin/Codeine 200mg/20mg 10ml Udc) 10 ml PO Q6H PRN PRN Reason: Cough Stop: 10/26/23 19:10 Last Admin: 09/28/23 09:35 Dose: 10 ml Azithromycin 500 mg/ Dextrose 255 mls @ 127.5 mls/hr IV Q24H [facility] Stop: 10/03/23 16:29 Last Infusion: 09/27/23 20:04 Dose: Infused Methylprednisolone 40 mg/ (Syringe) 0.64 mls @ 1.5 mls/min IV Q8H [facility] Stop: 10/26/23 19:59 Last Admin: 09/28/23 12:26 Dose: 1.5 mls/min Ceftriaxone Sodium 2,000 mg/ (Dextrose) 50 mls @ 100 mls/hr IV Q24H [facility]; Protocol Stop: 10/03/23 19:29 Last Infusion: 09/27/23 20:15 Dose: Infused Levetiracetam (Levetiracetam 500 Mg Tab) 1,500 mg PO BID [facility] Stop: 10/26/23 20:59 Last Admin: 09/28/23 09:29 Dose: 1,500 mg Lorazepam (Lorazepam 1 Mg Tab) 1 mg PO Q5M PRN PRN Reason: as needed for seizure Stop: 10/26/23 19:12 Magnesium Hydroxide (Magnesium Hydroxide Susp 30 Ml Udc) 30 ml PO Q12H PRN PRN Reason: Constipation Stop: 10/26/23 14:14 Metoprolol Succinate (Metoprolol Succ 25mg Ext Rel Tab) 25 mg PO QDD PRN PRN Reason: SBP >=100 Stop: 10/26/23 19:12 Ondansetron HCl (Ondansetron Inj 2 Mg/Ml 2 Ml Vial) 4 mg IV Q6H PRN PRN Reason: Nausea Stop: 10/26/23 14:14 Polyethylene Glycol (Polyethylene (Miralax) 17 Gm Pack) 17 gm PO DAILY PRN PRN Reason: Constipation Stop: 10/26/23 14:14 Sodium Chloride (Sodium Chlor 7% 4 Ml Neb) 4 ml NEB BIDR [facility] Stop: 10/27/23 06:59 Last Admin: 09/28/23 07:02 Dose: 4 ml Tramadol HCl (Tramadol Hcl 50 Mg Tablet) 50 mg PO TID PRN PRN Reason: Mod-Sev Pain (Scale 4-10) Stop: 10/27/23 21:29 Last Admin: 09/28/23 09:35 Dose: 50 mg Umeclidinium [place] (Umeclidinium [place] 62.5mcg/Blister 7 Puffs/Inhaler) 1 puffs INH QAM [facility] Stop: 10/27/23 08:59 Last Admin: 09/28/23 09:31 Dose: 1 puffs (4) Atrial fibrillation Atrial fibrillation type: unspecified Qualified Code(s): I48.91 - Unspecified atrial fibrillation
--- NOTE | 2023-09-29 15:34 | Hospitalist Progress Note ---
Date of Service September 29, 2023 Assessment & Plan (1) Chronic respiratory failure with hypoxia: Plan: Acute on chronic hypoxemia respiratory failure: COPD exacerbation and is complicated by Parainfluenza 3: No leukocytosis however given the complexity of her background and frail presentation will place on Rocephin plus azithromycin and adjust based on blood and sputum culture results Sputum Gram stain is showing few epithelial cells, moderate polys rare gram- negative bacilli and moderate gram-positive cocci, culture pending Received Lasix 40 mg in ED for mild congestion Methylprednisone 125 given in ED; continue Solu-Medrol 40 mg every 8 IV Guaifenesin with codeine for symptom management Has been getting intravenous ceftriaxone and azithromycin for possible infective exacerbation on top of parainfluenza Aspiration precautions Droplet precautions Incentive spirometry and flutter valve for supportive measures Clinically better and he still has cough Will need PT and OT evaluation-recommended rehab Clinically better with only minimal cough and minimal shortness of breath at rest Awaiting placement Clinically much better and medically stable to be transferred (2) Infection due to parainfluenza virus 3: Plan: As above Symptomatic management (3) Seizure disorder: Plan: Seizure disorder: Chronic Takes Keppra 1500 mg PO BID Recently started on Onfi at [place] 15 mg twice daily See above for further details from [place] admission No more seizures Right foot drop Secondary to grand mal seizure about 6 years back No acute issues now (4) Atrial fibrillation: Plan: A-fib: Not on any anticoagulation due to AVMs in brain Not On anticoagulation: History of DVT: Chronic-rate is controlled Takes Metoprolol; continue Ultrasound did not show any evidence of DVTs (5) History of DVT (deep vein thrombosis): Plan: She has not been no more on Coumadin (6) Obesity (BMI 30.0-34.9): (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 Godinez is a 78 year old female that presents to the ED with cough and SOB that started on Monday night after she recently returned home from being discharged from [facility] rehab on Saturday 09/23. Prior to her [facility] admission she was transferred [place] [facility] [place] from [facility] after experiencing aphagia which was suspected to be secondary to her seizure history; she was transferred for continuos EEG. 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 Patient recently completed a 3-day course of Rocephin for treatment of UTI. Today she presents with shortness of breath SpO2 86 to 88%; wears 2 L supplemental O2 at home at baseline. Chest x-ray negative for acute cardi opulmonary disease. EKG without ischemic changes. Bio fire positive for parainfluenza 3. Patient has a known history of chronic hypoxemia respiratory failure. Additional past medical history includes COPD, PAD, history of seizures, history of AVM, A-fib not on anticoagulation, history of GIB, and history of DVT (not on any anticoagulation). Has followed with pulmonary in the past. No leukocytosis, otherwise electrolytes unremarkable, LFTs negative, BNP negative, troponin negative. Chest x-ray negative for acute cardiopulmonary disease however visual sensation of imaging is unavailable at the moment. EKG without ischemic changes. Patient denies headache, dizziness, lightheadedness, visual or auditory changes, chest pain, palpitations, abdominal pain or tenderness, nausea, vomiting, ruben rrhea. On examination patient appears frail and ill. Patient able to speak in complete sentences and is AAO x 4 but visibly weak and coughing persistently. Intermittent sounds of stridor. Bilateral lower extremities grossly swollen +4 pitting edema. Right calf tender. With known history of DVT which she reports has been years low threshold to add chest CT. Patient will be admitted for further evaluation and management of chronic hypoxemia respiratory failure in the setting of parainfluenza 3. Placed on droplet precautions, will add azithromycin plus Rocephin for broad-spectrum coverage and adjust based on blood and sputum culture results, continue IV steroids 40 mg Q8, add Mucinex, continuous O2, flutter valve and ISB for supportive treatment,will obtain bilateral Doppler ultrasound LE, PT/OT for continued rehabilitation. Disposition: PCP Dr. Ponce CODE STATUS: Full code VTE prophylaxis: Teds and SCDs for now Admission and Anticipated Discharge Date Admission Date: September 26, 2023 Subjective 09/27/2023 The patient is seen and examined in telemetry unit She has been complaining of cough but no shortness of breath at rest Has been requiring 4 L to maintain saturation Denies any chest pain and palpitation No abdominal pain nausea and vomiting 09/28/2023 The patient was seen and examined in telemetry unit She has been feeling little better with decreasing cough and shortness of breath She has been saturating normally on 2 L of nasal cannula oxygen She has had physical therapy and recommended rehab 09/29/2023 The patient was seen and examined in telemetry unit She has been feeling much better and has minimal cough and congestion Has had physical therapy and recommended rehab Awaiting placement Review of Systems Review of Systems: All systems reviewed and are unremarkable except as noted below Physical Exam Physical Exam: Lying in bed with acute distress due to cough Constitutional: well developed, well nourished, + ill appearing and + obese Eyes: PERRL, conjunctivae normal, anicteric sclerae ENMT: external ear and nose normal, oropharynx normal Neck: trachea midline, no thyromegaly Respiratory: + respiratory distress Auscultation: + diminished lung sounds, + crackles and + wheezes Cardiovascular: Rate/Rhythm: regular rate and regular rhythm Heart Sounds: normal S1 and normal S2; no murmur Extremities: + edema (Trace edema bilaterally) Gastrointestinal (Abdomen): Inspection/Auscultation: normal bowel sounds; abdomen not distended Percussion/Palpation: abdomen soft; abdomen nontender Musculoskeletal: All systems reviewed and are unremarkable except as noted below Neurologic: normal touch/pain/proprioception, moves all extremities (Has foot drop on the right side) and + focal motor deficit (Dropfoot on the right side) Psychiatric: A+Ox3, euthymic affect Lymphatic: no cervical or axillary lymphadenopathy Results & Data Results & Data Vital Signs (Past 12 Hours) Vital Signs Temp Pulse Pulse Pulse Resp BP BP 09/29/23 14:37 62 09/29/23 11:20 36.7 C 70 20 148/77 H 09/29/23 07:32 36.6 C 71 18 151/84 H 09/29/23 07:30 57 L 09/29/23 07:30 09/29/23 07:17 89 18 09/29/23 03:35 36.6 C 69 18 135/69 Pulse Ox O2 Del Method O2 Flow Rate 09/29/23 14:37 09/29/23 11:20 96 Nasal Cannula 2 09/29/23 07:32 95 Nasal Cannula 2 09/29/23 07:30 09/29/23 07:30 Nasal Cannula 2 09/29/23 07:17 91 Room Air 09/29/23 03:35 94 Nasal Cannula 2 Medications Administered Current Inpatient Medications Acetaminophen (Acetaminophen 325 Mg Tab) 650 mg PO Q4H PRN PRN Reason: Pain or Fever Stop: 10/26/23 14:14 Last Admin: 09/27/23 21:15 Dose: 650 mg Al Hydrox/Mg Hydrox/Simethicone (Aluminum/Magnesium Susp 30 Ml Udc) 15 ml PO Q4H PRN PRN Reason: Dyspepsia Stop: 10/26/23 14:14 Clobazam (Clobazam 20mg Tab [Patient Own Med]) 0.75 each PO DAILY [facility] Stop: 10/27/23 11:29 Last Admin: 09/29/23 08:56 Dose: 0.75 each Divalproex Sodium (Divalproex Extended Release 500 Mg Tab) 500 mg PO BID [facility] Stop: 10/26/23 20:59 Last Admin: 09/29/23 08:16 Dose: 500 mg Divalproex Sodium (Divalproex Extended Release 250 Mg Tabcr) 250 mg PO BID [facility] Stop: 10/26/23 20:59 Last Admin: 09/29/23 08:16 Dose: 250 mg Docusate Sodium (Docusate Sodium 100 Mg Cap) 0 mg PO QAM [facility] Stop: 10/27/23 08:59 Last Admin: 09/29/23 08:56 Dose: 100 mg Duloxetine HCl (Duloxetine Hcl 20 Mg Cap) 20 mg PO QAM [facility] Stop: 10/27/23 08:59 Last Admin: 09/29/23 08:16 Dose: 20 mg Ferrous Sulfate (Ferrous Sulfate 325 Mg Tab) 325 mg PO DAILY [facility] Stop: 10/27/23 08:59 Last Admin: 09/29/23 08:16 Dose: 325 mg Fluticasone/Vilanterol (Fluticasone/Vilanterol 200/25mcg 14 Puffs/Inhaler) 1 puffs INH QAM [facility] Stop: 10/27/23 08:59 Last Admin: 09/29/23 08:16 Dose: 1 puffs Furosemide (Furosemide 40 Mg Tab) 40 mg PO DAILY [facility] Stop: 10/27/23 08:59 Last Admin: 09/29/23 08:16 Dose: 40 mg Guaifenesin/Codeine Phosphate (Guaifenesin/Codeine 200mg/20mg 10ml Udc) 10 ml PO Q6H PRN PRN Reason: Cough Stop: 10/26/23 19:10 Last Admin: 09/29/23 03:54 Dose: 10 ml Azithromycin 500 mg/ Dextrose 255 mls @ 127.5 mls/hr IV Q24H [facility] Stop: 10/03/23 16:29 Last Infusion: 09/28/23 19:45 Dose: Infused Methylprednisolone 40 mg/ (Syringe) 0.64 mls @ 1.5 mls/min IV Q8H [facility] Stop: 10/26/23 19:59 Last Admin: 09/29/23 12:00 Dose: 1.5 mls/min Ceftriaxone Sodium 2,000 mg/ (Dextrose) 50 mls @ 100 mls/hr IV Q24H [facility]; Protocol Stop: 10/03/23 19:29 Last Infusion: 09/28/23 20:29 Dose: Infused Levetiracetam (Levetiracetam 500 Mg Tab) 1,500 mg PO BID [facility] Stop: 10/26/23 20:59 Last Admin: 09/29/23 08:16 Dose: 1,500 mg Lorazepam (Lorazepam 1 Mg Tab) 1 mg PO Q5M PRN PRN Reason: as needed for seizure Stop: 10/26/23 19:12 Magnesium Hydroxide (Magnesium Hydroxide Susp 30 Ml Udc) 30 ml PO Q12H PRN PRN Reason: Constipation Stop: 10/26/23 14:14 Metoprolol Succinate (Metoprolol Succ 25mg Ext Rel Tab) 25 mg PO QDD PRN PRN Reason: SBP >=100 Stop: 10/26/23 19:12 Ondansetron HCl (Ondansetron Inj 2 Mg/Ml 2 Ml Vial) 4 mg IV Q6H PRN PRN Reason: Nausea Stop: 10/26/23 14:14 Polyethylene Glycol (Polyethylene (Miralax) 17 Gm Pack) 17 gm PO DAILY PRN PRN Reason: Constipation Stop: 10/26/23 14:14 Sodium Chloride (Sodium Chlor 7% 4 Ml Neb) 4 ml NEB BIDR [facility] Stop: 10/27/23 06:59 Last Admin: 09/29/23 07:16 Dose: 4 ml Tramadol HCl (Tramadol Hcl 50 Mg Tablet) 50 mg PO TID PRN PRN Reason: Mod-Sev Pain (Scale 4-10) Stop: 10/27/23 21:29 Last Admin: 09/28/23 09:35 Dose: 50 mg Umeclidinium [place] (Umeclidinium [place] 62.5mcg/Blister 7 Puffs/Inhaler) 1 puffs INH QAM [facility] Stop: 10/27/23 08:59 Last Admin: 09/29/23 08:17 Dose: 1 puffs (4) Atrial fibrillation Atrial fibrillation type: unspecified Qualified Code(s): I48.91 - Unspecified atrial fibrillation
--- NOTE | 2023-09-30 11:47 | Hospitalist Progress Note ---
Date of Service September 30, 2023 Assessment & Plan (1) Chronic respiratory failure with hypoxia: Plan: Acute on chronic hypoxemia respiratory failure: COPD exacerbation and is complicated by Parainfluenza 3: No leukocytosis however given the complexity of her background and frail presentation will place on Rocephin plus azithromycin and adjust based on blood and sputum culture results Sputum Gram stain is showing few epithelial cells, moderate polys rare gram- negative bacilli and moderate gram-positive cocci, culture pending Received Lasix 40 mg in ED for mild congestion Methylprednisone 125 given in ED; continue Solu-Medrol 40 mg every 8 IV Guaifenesin with codeine for symptom management Has been getting intravenous ceftriaxone and azithromycin for possible infective exacerbation on top of parainfluenza Aspiration precautions Droplet precautions Incentive spirometry and flutter valve for supportive measures Clinically better and he still has cough Will need PT and OT evaluation-recommended rehab Clinically better with only minimal cough and minimal shortness of breath at rest Awaiting placement Clinically much better and medically stable to be transferred Remains stable to be transferred She will go to rehab this afternoon around 1 PM (2) Infection due to parainfluenza virus 3: Plan: As above Symptomatic management Denies any symptoms (3) Seizure disorder: Plan: Seizure disorder: Chronic Takes Keppra 1500 mg PO BID Recently started on Onfi at [place] 15 mg twice daily See above for further details from [place] admission No more seizures-will continue current medications Right foot drop Secondary to grand mal seizure about 6 years back No acute issues now (4) Atrial fibrillation: Plan: A-fib: Not on any anticoagulation due to AVMs in brain Not On anticoagulation: History of DVT: Chronic-rate is controlled Takes Metoprolol; continue Ultrasound did not show any evidence of DVTs (5) History of DVT (deep vein thrombosis): Plan: She has not been no more on Coumadin (6) Obesity (BMI 30.0-34.9): (7) [facility] current use of anticoagulants with INR goal of 2.0-3.0: Plan: Long-term anticoagulation has been stopped long ago (8) COPD (chronic obstructive pulmonary disease): (9) AA (alcohol abuse): (10) AVM (arteriovenous malformation) brain: Plan: No pharmacologic anticoagulation (11) Generalized weakness: Plan Ms. Godinez is a 78 year old female that presents to the ED with cough and SOB that started on Monday night after she recently returned home from being discharged from [facility] rehab on Saturday 09/23. Prior to her [facility] admission she was transferred to [facility] from [facility] after experiencing aphagia which was suspected to be secondary to her seizure history; she was transferred for continuos EEG. 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 Patient recently completed a 3-day course of Rocephin for treatment of UTI. Today she presents with shortness of breath SpO2 86 to 88%; wears 2 L supplemental O2 at home at baseline. Chest x-ray negative for acute cardiopulmonary disease. EKG without ischemic changes. Bio fire positive for parainfluenza 3. Patient has a known history of chronic hypoxemia respiratory failure. Additional past medical history includes COPD, PAD, history of seizures, history of AVM, A-fib not on anticoagulation, history of GIB, and history of DVT (not on any anticoagulation). Has followed with pulmonary in the past. No leukocytosis, otherwise electrolytes unremarkable, LFTs negative, BNP negative, troponin negative. Chest x-ray negative for acute cardiopulmonary disease however visual sensation of imaging is unavailable at the moment. EKG without ischemic changes. Patient denies headache, dizziness, lightheadedness, visual or auditory changes, chest pain, palpitations, abdominal pain or tenderness, nausea, vomiting, diarrhea. On examination patient appears frail and ill. Patient able to speak in complete sentences and is AAO x 4 but visibly weak and coughing persistently. Intermittent sounds of stridor. Bilateral lower extremities grossly swollen +4 pitting edema. Right calf tender. With known history of DVT which she reports has been years low threshold to add chest CT. Patient will be admitted for further evaluation and management of chronic hypoxemia respiratory failure in the setting of parainfluenza 3. Placed on droplet precautions, will add azithromycin plus Rocephin for broad-spectrum coverage and adjust based on blood and sputum culture results, continue IV steroids 40 mg Q8, add Mucinex, continuous O2, flutter valve and ISB for supportive treatment,will obtain bilateral Doppler ultrasound LE, PT/OT for continued rehabilitation. Disposition: PCP Dr. Ponce CODE STATUS: Full code VTE prophylaxis: Teds and SCDs for now Admission and Anticipated Discharge Date Admission Date: September 26, 2023 Subjective 09/27/2023 The patient is seen and examined in telemetry unit She has been complaining of cough but no shortness of breath at rest Has been requiring 4 L to maintain saturation Denies any chest pain and palpitation No abdominal pain nausea and vomiting 09/28/2023 The patient was seen and examined in telemetry unit She has been feeling little better with decreasing cough and shortness of breath She has been saturating normally on 2 L of nasal cannula oxygen She has had physical therapy and recommended rehab 09/29/2023 The patient was seen and examined in telemetry unit She has been feeling much better and has minimal cough and congestion Has had physical therapy and recommended rehab Awaiting placement 09/30/2023 The patient was seen and examined in telemetry She has been feeling much better She will be discharged this afternoon to rehab facility Review of Systems Review of Systems: All systems reviewed and are unremarkable except as noted below Physical Exam Physical Exam: Lying in bed with acute distress due to cough Constitutional: well developed, well nourished, + ill appearing and + obese Eyes: PERRL, conjunctivae normal, anicteric sclerae ENMT: external ear and nose normal, oropharynx normal Neck: trachea midline, no thyromegaly Respiratory: + respiratory distress Auscultation: + diminished lung sounds, + crackles and + wheezes Cardiovascular: Rate/Rhythm: regular rate and regular rhythm Heart Sounds: normal S1 and normal S2; no murmur Extremities: + edema (Trace edema bilaterally) Gastrointestinal (Abdomen): Inspection/Auscultation: normal bowel sounds; abdomen not distended Percussion/Palpation: abdomen soft; abdomen nontender Musculoskeletal: No acute arthritis involving any of the joint Neurologic: normal touch/pain/proprioception, moves all extremities (Has foot drop on the right side) and + focal motor deficit (Dropfoot on the right side) Psychiatric: A+Ox3, euthymic affect Lymphatic: no cervical or axillary lymphadenopathy Results & Data Results & Data Vital Signs (Past 12 Hours) Vital Signs Temp Pulse Pulse Resp BP Pulse Ox O2 Del Method 09/30/23 08:00 36.9 C 78 20 118/65 96 Nasal Cannula 09/30/23 07:26 55 L 09/30/23 07:07 70 18 95 Nasal Cannula 09/30/23 03:05 37.0 C 88 18 124/78 94 Nasal Cannula O2 Flow Rate 09/30/23 08:00 2 09/30/23 07:26 09/30/23 07:07 2 09/30/23 03:05 2 (4) Atrial fibrillation Atrial fibrillation type: unspecified Qualified Code(s): I48.91 - Unspecified atrial fibrillation
--- NOTE | 2023-10-01 08:19 | Discharge Summary ---
Date of Service October 01, 2023 Admission HPI Per Admitting Provider Ms. Godinez is a 78 year old female that presents to the ED with cough and SOB that started on Monday night after she recently returned home from being discharged from [facility] rehab on Saturday 09/23. Prior to her [facility] admission she was transferred to [facility] from [facility] after experiencing aphagia which was suspected to be secondary to her seizure history; she was transferred for continuos EEG. 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 Patient recently completed a 3-day course of Rocephin for treatment of UTI. Today she presents with shortness of breath SpO2 86 to 88%; wears 2 L supplemental O2 at home at baseline. Chest x-ray negative for acute cardiopulmonary disease. EKG without ischemic changes. Bio fire positive for parainfluenza 3. Patient has a known history of chronic hypoxemia respiratory failure. Additional past medical history includes COPD, PAD, history of seizures, history of AVM, A-fib on anticoagulation, history of GIB, and history of DVT (not on any anticoagulation). Has followed with pulmonary in the past. No leukocytosis, otherwise electrolytes unremarkable, LFTs negative, BNP negative, troponin negative. Chest x-ray negative for acute cardiopulmonary disease however visual sensation of imaging is unavailable at the moment. EKG without ischemic changes. Patient denies headache, dizziness, lightheadedness, visual or auditory changes, chest pain, palpitations, abdominal pain or tenderness, nausea, vomiting, diarrhea. On examination patient appears frail and ill. Patient able to speak in complete sentences and is AAO x 4 but visibly weak and coughing persistently. Intermittent sounds of stridor. Bilateral lower extremities grossly swollen +4 pitting edema. Right calf tender. With known history of DVT which she reports has been years low threshold to add chest CT. Patient will be admitted for further evaluation and management of chronic hypoxemia respiratory failure in the setting of parainfluenza 3. Placed on droplet precautions, will add azithromycin plus Rocephin for broad-spectrum coverage and adjust based on blood and sputum culture results, continue IV steroids 40 mg Q8, add Mucinex, continuous O2, flutter valve and ISB for supportive treatment,will obtain bilateral Doppler ultrasound LE, PT/OT for continued rehabilitation. Admission Exam Per Admitting Provider Physical Exam: Neuro: AAOx4, PERRLA, no aphagia, memory changes, CNII-XII grossly intact HEENT: head normocephalic, moist mucus membranes CV: S1/S2, (-) M/G/R, (-) edema, cap refill < 3 seconds. + 4 BL LE edema Resp: Lungs coarse rhonchi throughout lung [place]. On 4LNC. Intermittent sounds of stridor GI: Abdomen S/NT/ND, Ax4 bowel sounds, (-) CVA tenderness Musculoskeletal: 5/5 B/L UE strength, 5/5 B/L LE strength. No gait disturbance (+) calf tenderness LLE Skin: (-) rashes , (-) erythema. Psych: euthymic mood Principal Diagnosis Acute on chronic hypoxic respiratory failure, COPD exacerbation, parainfluenza, seizure disorder, A-fib on not any anticoagulation due to AVM in the brain Discharge Exam Lying in bed with acute distress due to cough Constitutional well developed, well nourished, + ill appearing and + obese Eyes PERRL, conjunctivae normal, anicteric sclerae ENMT external ear and nose normal, oropharynx normal Neck trachea midline, no thyromegaly Respiratory + respiratory distress Auscultation: + diminished lung sounds, + crackles and + wheezes Cardiovascular Rate/Rhythm: regular rate and regular rhythm Heart Sounds: normal S1 and normal S2; no murmur Extremities: + edema (Trace edema bilaterally) Gastrointestinal (Abdomen) Inspection/Auscultation: normal bowel sounds; abdomen not distended Percussion/Palpation: abdomen soft; abdomen nontender Neurologic normal touch/pain/proprioception, moves all extremities (Has foot drop on the right side) and + focal motor deficit (Dropfoot on the right side) Psychiatric A+Ox3, euthymic affect Lymphatic no cervical or axillary lymphadenopathy Discharge Data Allergies Allergy/AdvReac Type Severity Reaction Status Date / Time ciprofloxacin Allergy Severe Seizure on Verified 09/26/23 15:36 file w/ [facility] Sulfa (Sulfonamide Allergy Mild rash Verified 09/26/23 15:36 Antibiotics) alcohol Allergy Unknown Recovering Verified 09/26/23 15:36 Alcoholic lacosamide [From [facility]] AdvReac Severe facial Verified 09/26/23 15:36 swelling and erythema Opioids - Morphine Analogues AdvReac Unknown HISTORY OF Verified 09/26/23 15:36 ADDICTION Consultations 09/26/23 13:55 ED Decision to Admit Stat Ordered Studies 09/26/23 14:56 US venous doppler LE BI Routine Hospital Course (1) Chronic respiratory failure with hypoxia: Acute on chronic hypoxemia respiratory failure: COPD exacerbation and is complicated by Parainfluenza 3: No leukocytosis however given the complexity of her background and frail presentation will place on Rocephin plus azithromycin and adjust based on blood and sputum culture results Sputum Gram stain is showing few epithelial cells, moderate polys rare gram- negative bacilli and moderate gram-positive cocci, culture pending Received Lasix 40 mg in ED for mild congestion Methylprednisone 125 given in ED; continue Solu-Medrol 40 mg every 8 IV Guaifenesin with codeine for symptom management Has been getting intravenous ceftriaxone and azithromycin for possible infective exacerbation on top of parainfluenza Aspiration precautions Droplet precautions Incentive spirometry and flutter valve for supportive measures Clinically better and he still has cough Will need PT and OT evaluation-recommended rehab Clinically better with only minimal cough and minimal shortness of breath at rest Awaiting placement Clinically much better and medically stable to be transferred Remains stable to be transferred She will go to rehab this afternoon around 1 PM (2) Infection due to parainfluenza virus 3: As above Symptomatic management Denies any symptoms (3) Seizure disorder: Seizure disorder: Chronic Takes Keppra 1500 mg PO BID Recently started on Onfi at [place] 15 mg twice daily See above for further details from [place] admission No more seizures-will continue current medications Right foot drop Secondary to grand mal seizure about 6 years back No acute issues now (4) Atrial fibrillation: A-fib: Not on any anticoagulation due to AVMs in brain Not On anticoagulation: History of DVT: Chronic-rate is controlled Takes Metoprolol; continue Ultrasound did not show any evidence of DVTs (5) History of DVT (deep vein thrombosis): She has not been no more on Coumadin (6) Obesity (BMI 30.0-34.9): (7) prison current use of anticoagulants with INR goal of 2.0-3.0: Long-term anticoagulation has been stopped long ago (8) COPD (chronic obstructive pulmonary disease): (9) AA (alcohol abuse): (10) AVM (arteriovenous malformation) brain: No pharmacologic anticoagulation (11) Generalized weakness: Plan Ms. Godinez is a 78 year old female that presents to the ED with cough and SOB that started on Monday night after she recently returned home from being discharged from [facility] rehab on Saturday 09/23. Prior to her [facility] admission she was transferred to [facility] from [facility] after experiencing aphagia which was suspected to be secondary to her seizure history; she was transferred for continuos EEG. 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 Patient recently completed a 3-day course of Rocephin for treatment of UTI. Today she presents with shortness of breath SpO2 86 to 88%; wears 2 L supplemental O2 at home at baseline. Chest x-ray negative for acute cardiopulmonary disease. EKG without ischemic changes. Bio fire positive for parainfluenza 3. Patient has a known history of chronic hypoxemia respiratory failure. Additional past medical history includes COPD, PAD, history of seizures, history of AVM, A-fib not on anticoagulation, history of GIB, and history of DVT (not on any anticoagulation). Has followed with pulmonary in the past. No leukocytosis, otherwise electrolytes unremarkable, LFTs negative, BNP negative, troponin negative. Chest x-ray negative for acute cardiopulmonary disease however visual sensation of imaging is unavailable at the moment. EKG without ischemic changes. Patient denies headache, dizziness, lightheadedness, visual or auditory changes, chest pain, palpitations, abdominal pain or tenderness, nausea, vomiting, diarrhea. On examination patient appears frail and ill. Patient able to speak in complete sentences and is AAO x 4 but visibly weak and coughing persistently. Intermittent sounds of stridor. Bilateral lower extremities grossly swollen +4 pitting edema. Right calf tender. With known history of DVT which she reports has been years low threshold to add chest CT. Patient will be admitted for further evaluation and management of chronic hypoxemia respiratory failure in the setting of parainfluenza 3. Placed on droplet precautions, will add azithromycin plus Rocephin for broad-spectrum coverage and adjust based on blood and sputum culture results, continue IV steroids 40 mg Q8, add Mucinex, continuous O2, flutter valve and ISB for supportive treatment,will obtain bilateral Doppler ultrasound LE, PT/OT for continued rehabilitation. Disposition: PCP Dr. Ponce CODE STATUS: Full code VTE prophylaxis: Teds and SCDs for now Total Time Total Time Spent Total Time Spent (In Minutes): 40 minutes Discharge Plan Discharge Items Patient Disposition: Transfer [facility] Fac Reason For Visit: SOB/PARAINFLUENZA 3 Discharge Diagnosis: Acute on chronic hypoxic respiratory failure, COPD exacerbation, parainfluenza, seizure disorder, A-fib on not any anticoagulation due to AVM in the brain Condition on Discharge: Fair Activity: Resume your previous activity Non-emergency contact: Primary Care Provider Call non-emergency contact if: you have any medication questions and your symptoms worsen Follow-up/Referrals: Tanesha Ponce, [Primary Care Provider] - (Please make an appointment with your PCP within 1 week following discharge from the facility) Diet: Heart Healthy Addtl Attending Provider Instructions: Please take precautions to avoid fall Take your medications as advised Continue with the PT and OT Please keep appointment with your healthcare provider Pending Studies at Discharge: No Stand-Alone Forms: My [facility] Skilled Items Patient informed of condition?: Yes DNR: Yes Discharge Level of Care: Skilled Communicable Disease: No Discharge Prognosis: Stable Lines: None Urinary Catheter: No Medications and DC Order Prescriptions: New cefdinir 300 mg capsule 300 mg PO BID 5 Days Qty: 10 0RF prednisone 10 mg tablet 10 mg PO DIRECTED Qty: 20 0RF Rx Instructions: 4 p.o. daily for 2 days, 3 p.o. daily for 2 days, 2 p.o. daily for 2 days, 1 p.o. daily for 2 days Continued divalproex [Depakote] 500 mg tablet,delayed release (DR/EC) See Rx Instructions .ROUTE .COMPLEX Rx Instructions: Take 250mg w/ 500mg by mouth to equal 750mg by mouth twice daily Incruse Ellipta 62.5 mcg/actuation Blister With Device 1 inh INHALATION QAM fluticasone furoate-vilanterol [Breo Ellipta] 200-25 mcg/dose Blister With Device 1 inh INHALATION QAM metoprolol succinate 25 mg tablet extended release 24 hr 25 mg PO QDD PRN (Reason: SBP >=100) Rx Instructions: HOLD IF SYSTOLIC ABOVE 100 furosemide 40 mg tablet 40 mg PO DAILY lorazepam [Ativan] 1 mg tablet 1 mg BUCCAL DIRECTED MDD 2 DOSES PRN (Reason: as needed for seizure) Rx Instructions: GIVE Q5 MIN NEEDED FOR SEIZURE : TAKE 1 MG BY MOUTH, IF AWAKE, X2 DOSES acetaminophen 325 mg Tablet 325 mg PO Q6H PRN (Reason: Pain) Rx Instructions: Unable to verify OTC meds at this date/time. multivitamin [Daily Multi-Vitamin] Tablet 1 tab PO DAILY ferrous sulfate 325 mg (65 mg iron) Tablet 325 mg PO DAILY docusate sodium 100 mg Capsule 0 mg PO QAM Rx Instructions: Unable to verify OTC meds at this date/time. duloxetine 20 mg capsule,delayed release(DR/EC) 20 mg PO QAM levetiracetam [Keppra] 1,000 mg tablet 1,000 mg PO BID Rx Instructions: TOTAL DOSE 1,500 MG--TAKES WITH 500 MG TAB. divalproex 250 mg tablet extended release 24 hr See Rx Instructions .ROUTE .COMPLEX Rx Instructions: Take 250mg w/ 500mg by mouth to equal 750mg by mouth twice daily levetiracetam [Keppra] 500 mg Tablet 500 mg PO BID Rx Instructions: TOTAL DOSE 1,500 MG--TAKES WITH 1,000 MG TAB tramadol 50 mg Tablet 50 mg PO Q8H PRN (Reason: PAIN, SCALE (7-10)) calcium carbonate-vitamin D3 [Calcium 500 + D] 500 mg-5 mcg (200 unit) Tablet 1 tab PO TIDM diazepam 5-7.5-10 mg Kit 5 mg MO Q12H MDD 2 DOSES PRN (Reason: Seizures) clobazam 10 mg Tablet 15 mg PO DAILY Discharge Orders: Discharge Order (Routine); Ordered 09/30/23 Ordered By: Clarice Patton Admission Data Admit Date/Time: 09/26/23 14:15 Attending Provider: Clarice Patton Admit Provider: Leesa Carlson Primary Care Provider: Tanesha Ponce Other Providers: Leesa Carlson; [facility]; [facility]Health; [facility] Other Interventions: Discharge Summary Assessment (RN) Last Done: 09/30/23 12:53
== END 2023-09-30 13:29 | DRG 865 ==
LOC: ED 11:07 → EDINP 14:15 → SUATTDRO 14:15 → 2S 16:19
DX: G40.909 Epilepsy, unspecified, not intractable, without status epilepticus; Z88.1 Allergy status to other antibiotic agents; J44.1 Chronic obstructive pulmonary disease with (acute) exacerbation; Z88.2 Allergy status to sulfonamides; Q28.2 Arteriovenous malformation of cerebral vessels; J96.21 Acute and chronic respiratory failure with hypoxia; I48.91 Unspecified atrial fibrillation; Z79.899 Other long term (current) drug therapy; Z11.52 Encounter for screening for COVID-19; B34.8 Other viral infections of unspecified site